=== PATIENT | male | born 1945 | race Caucasian/White ===

== ENCOUNTER 2016-03-15 10:20 | Inpatient (IN) | payer OTHER, MEDICARE ==
[~2016-03-15] VITALS: Ht 172.7 cm; Wt 113.4 kg
[~2016-03-15 10:20] MED LIST: ALBUTEROL0.09 MG/A1 INH; ALBUTEROL2.5 MG/3 M INH/SOL; ALDACTONE25 MG PO; ALLOPURINOL300 M1 PO; AUGMENTIN 875875 MG PO; AVELOX400 MG PO; AZITHROMYCIN250 MG PO; CYMBALTA60 M1 PO; ENBREL50 MG/1 ML SC; ENBREL50 MG/ML PO; ENBREL50 MG/ML SC; ENDOCET 325 MG-1 TAB PO; FLOMAX0.4 M1 PO; FLUTICASON0.05 MG/Ac NASB; FOLIC ACID1 M1 PO; FUROSEMIDE40 M1 PO; LANTUS SOL100 UNIT/1 SC; LOPRESSOR50 M1 PO; LOVASTATIN40 M1 PO; METFORMIN HCL500 MG PO; METHOTREXA50 MG/2 ML PO; METHOTREXATE2.5 M2 PO; METHYLPREDNISONE4 MG PO; MIRALAX17 GM PO; MUCINEX ER600 MG PO; Mucinex PO; OMEPRAZOLE20 M2 PO; PREDNICOT10 MG PO; PREDNISONE 20MG20 MG PO; PREDNISONE10 MG PO; SPIRIVA 18 MCG18 MCG INH; SYMBICORT 16010.2 GM INH; Senokot S PO
[2016-03-15] MEDS ORDERED: OXYCODONE-ACET1 EAC1 PO (10:31)
[2016-03-15] MEDS ORDERED: ALENDRONATE SOD70 M2 PO (10:32)
[2016-03-15] MEDS ORDERED: CALTRATE 600 +1 EACH PO (10:33)
[2016-03-15] MEDS ORDERED: CYANOCOBAL1000 MCG/2 IM (10:34)
[2016-03-15 10:58] LABS: ABSOLUTE BASOPHIL COUNT 0 /CUMM (0.0-0.2); ABSOLUTE EOSINOPHIL COUNT 0.2 /CUMM (0.0-0.7); ABSOLUTE GRANULOCYTE CT 10.2 /CUMM (1.4-6.5); ABSOLUTE LYMPH COUNT 1.3 /CUMM (1.2-3.4); BASOPHIL % 0.3 % (0.0-2.0); EOSINOPHIL % 1.3 % (0-5); GRANULOCYTE % 80.1 % (42.2-75.2); HEMATOCRIT 41.7 % (42-52); MEAN CORPUSCULAR HGB 31.6 PG (27.0-31.0); MEAN CORPUSCULAR HGB CONC 33.3 G/DL (33.0-37.0); MEAN PLATELET VOLUME 7.8 FL (7.4-10.4); PLATELET COUNT 139 /CUMM (130-400); RBC DISTRIBUTION WIDTH 15.9 % (11.5-14.5); WHITE BLOOD CELL COUNT 12.7 /CUMM (4.8-10.8)
--- NOTE | 2016-03-15 11:10 | ED DYSPNEA/ASTHMA COMPLAINT ---
History of Present Illness General Chief Complaint: Dyspnea (COPD, CHF, Other) Stated Complaint: BIBA SOB Source: patient, old records, EMS Exam Limitations: no limitations Allergies Coded Allergies: NO KNOWN ALLERGIES (03/15/16) Reconcile Medications Albuterol Sulfate 3 ML NEB 3 ML INH 5XDAILY COPD (Reported) Alendronate Sodium 70 MG TABLET 1 TAB PO QW BONE (Reported) in the morning, at least 30 minutes before the first food, beverage, or medication of the day Allopurinol 300 MG TAB 300 MG PO DAILY GOUT (Reported) Budesonide/Formoterol Fumara (Symbicort 160-4.5 Mcg Inhaler) 160 MCG/4.5 MCG PUF 2 PUFF INH BID PRN COPD (Reported) Calcium Carbonate/Vitamin D3 (Caltrate 600 + D Tablet) 600 MG-800 TABLET 1 TAB PO DAILY SUPPLEMENT (Reported) Cyanocobalamin (Vitamin B-12) (Cyanocobalamin Injection) 1,000 MCG/ML VIAL 1 ML IM Q30D SUPPLEMENT (Reported) DULOXETINE HCL (Cymbalta) 60 MG CAPSULE.DR 60 MG PO QAM MENTAL HEALTH ( Reported) Etanercept (Enbrel) 50 MG/ML TAPAN 50 MG SC QSUN ARTHRITIS (Reported) Fluticasone Propionate 0.05 MG/Actuation SPR 2 SPRAY NASB DAILY CONGESTION ( Reported) Folic Acid 1 MG TABLET 1 TAB PO BID SUPPLEMENT (Reported) Furosemide 40 MG TABLET 40 MG PO QAM HEART HEALTH (Reported) Guaifenesin (Mucinex) [address] 1 TAB PO BID PRN MUCUS (Reported) Insulin-Lantus (Lantus Insulin) 100 UNIT/ML VIAL 60 UNITS SC NIGHTLY DIABETES (Reported) Lovastatin 40 MG TABLET 40 MG PO QPM CHOLESTEROL (Reported) Methotrexate 2.5 MG TABLET 5 TAB PO QW ARTHRITIS (Reported) Metoprolol Tartrate 50 MG TAB 1 TAB PO BID HEART (Reported) Omeprazole 20 MG CAPSULE.DR 1 CAP PO BID GI (Reported) Oxycodone HCl/Acetaminophen (Oxycodone-Acetaminophen 10-325) 10 MG-325 MG TABLET 1 TAB PO 4XDP PRN PAIN (Reported) Spironolactone 25 MG TABLET 25 MG PO DAILY DIURETIC (Reported) Tamsulosin Hydrochloride (Flomax) 0.4 MG CAP.ER.24H 0.4 MG PO QPM PROSTATE ( Reported) Tiotropium [place] (Spiriva) 18 MCG CAP.W.DEV 1 CAP INH DAILY COPD EXACERBATION Triage Note: PT BIBA FROM HOME FOR HYPOXIA. PT SEEN BY HIS VISITING NURSE WHO NOTICED HE WAS HAVING INCREASED SOB. PT SUPPOSED TO BE ON 3L NC OXYGEN AND CPAP, BUT IS NON-COMPLIANT. UPON EMS ARRIVAL, PT'S O2 SAT 84-89% RA. PT NOTED TO BE SLIGHTLY CONFUSED UPON EMS ARRIVAL, BUT BECAME MORE ALERT AND ORIENTED X 4 AFTER OXYGEN AND UPON ARRIVAL TO HOSPITAL. PT'S O2 SAT WNL ON 3L. PURSED LIP BREATHING NOTED, HX OF CHF, COPD, EMPHYSEMA PT DENIES CHEST PAIN. Triage Nurses Notes Reviewed? yes HPI: 70-year-old male, smoker, history of COPD, CHF, insulin-dependent diabetes, who is O2 dependent however does not use is required oxygen or CPAP presents via ambulance with feeling short of breath for the past one week. It is worse today. He was noted to have a fever today on evaluation here. Using DuoNeb inhaler with mild relief daily. He denies chest pain, any known fever, no increased cough, no leg swelling, no sick contacts. No nausea no vomiting. Symptoms are moderate. He was restarted on Enbrel yesterday, he had to stop the Advil last year because of pneumonia. (DOT PRITCHARD,MIR) Vital Signs & Intake/Output Vital Signs & Intake/Output Vital Signs Date Time Temp Pulse Resp B/P Pulse O2 O2 Flow FiO2 Ox Delivery Rate 03/15 1729 Nasal 3.0L Cannula 03/15 1629 98.5 91 20 110/60 90 Nasal Cannula 03/15 1618 Nasal 3.0L Cannula 03/15 1600 Nasal 3.0L Cannula 03/15 1421 99.4 88 18 109/67 99 03/15 1316 100.6 03/15 1316 110 118/68 03/15 1251 100.6 110 20 118/68 98 Nasal 2.0L Cannula 03/15 1225 94 Nasal 3.0L Cannula 03/15 1040 94 Nasal 3.0L Cannula 03/15 1035 100.8 109 20 136/76 94 Nasal 3.0L Cannula Past History Travel History [place]ed [place] past 21 day No Medical History Any Pertinent Medical History? 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 Refer elsewhere in this and other documents for additional details. According to the patient's report he was asymptomatic and functionally unrestricted by his back prior to this injury. He did have functional limitation and restriction because of his other medical conditions. Refer to other inpatient and outpatient medical records for details regarding pre-injury functional status and deficits. History of MRSA: No History of VRE: No History of CDIFF: No Surgical History Surgical History: non-contributory, No prior surgery in the lumbar region See Admission History & Physical Examination Report for detailed Hx. Psychosocial History Who do you live with Spouse Services at Home Oxygen (4 litres) What is your primary language Lithuanian Tobacco Use: Current Daily Use Daily Tobacco Use Amount/Type: => 5 Cigarettes daily ETOH Use: occasional use Illicit Drug Use: denies illicit drug use Family History Family History, If Any: MOTHER FHx: cancer Hx Contributory? No (MIR ZARATE) Review of Systems Review of Systems Constitutional: Reports: see HPI. EENTM: Reports: no symptoms. Respiratory: Reports: see HPI. Cardiovascular: Reports: see HPI. GI: Reports: no symptoms. Genitourinary: Reports: no symptoms. Musculoskeletal: Reports: no symptoms. Skin: Reports: no symptoms. Neurological/Psychological: Reports: no symptoms. Hematologic/Endocrine: Reports: no symptoms. Immunologic/Allergic: Reports: no symptoms. All Other Systems: Reviewed and Negative (MIR ZARATE) Physical Exam Physical Exam General Appearance: well developed/nourished Respiratory: DIMINISHED BREATH SOUNDS BILATERALLY, CRACKLES NOTED BILATERAL BASES Comments: Well-developed well-nourished, mild increased respiratory rate and effort . HEENT: Atraumatic, extraocular motion intact Neck: Supple, no lymphadenopathy, no JVD Back: Nontender Heart: Tachycardic, regular rhythm Abdomen: Obese, nontender Extremities: Trace bilateral lower extremity edema, full range of motion Neuro: Alert and oriented x3 Psych: Mood affect normal, normal memory normal judgment. Skin: Warm and dry, no rash on exposed skin Core Measures ACS in differential dx? Yes Severe Sepsis Present: No Septic Shock Present: No (MIR ZARATE) Progress Differential Diagnosis: asthma, AMI, altitude sickness, bronchitis, costochondritis, CHF, COPD, musculoskeletal pain, pericarditis, pulmonary embolism, pneumonia, pneumothorax, rib fracture, unstable angina Diagnostic Imaging: Viewed by Me: Radiology Read. Discussed w/RAD: Radiology Read. CXR Impression: PATIENT: JANETTE PAEZ PRESENT AGE: 70 PATIENT ACCOUNT NO: [id number] : 43 LOCATION: [facility] ORDERING PHYSICIAN: MIR PRITCHARD SERVICE DATE: 03/15/16 EXAM TYPE: RAD - XRY-PORTABLE CHEST XRAY EXAMINATION: XR PORTABLE CHEST CLINICAL INFORMATION: Evaluate for pneumonia. Shortness of breath. Fever. COMPARISON: Chest radiograph dated 2015. TECHNIQUE: Portable AP view of the chest was obtained. FINDINGS: There is stable, mild cardiomegaly. There is uncoiling and calcification of the aorta. There is no definite consolidation within the right lung. There is no right pleural effusion or right pneumothorax. There is no definite consolidation within the left lung. There is no pneumothorax or pleural effusion on the left. There are degenerative changes of the spine. IMPRESSION: No definite pneumonia, pneumothorax or pleural effusion. Calcification and uncoiling of the aorta. DICTATED BY: DILMA OTTO MD DATE/TIME DICTATED:03/15/161115 CONSULTING HR PROFESSIONAL:FINA Initial ED EKG: NSR, SINUS TACHYCARDIA 170 INTERMITTENT RIGHT BUNDLE BRANCH BLOCK NO SIGNIFICANT CHANGE FROM PREVIOUS ekg Rhythm Strip: sinus tachycardia (MIR ZARATE) Plan of Care: Orders Procedure Date/time Status CBC WITHOUT DIFFERENTIAL 03/16 06 Active BASIC ELECTROLYTES PLUS BUN&CR 03/16 06 Active Consistent Carbohydrate 3 03/15 D Active RT: Evaluation 03/15 1654 Active Vital Signs 03/15 1618 Active Teach/Educate 03/15 1618 Active Nutritional Intake, Monitor 03/15 1618 Active Isolation 03/15 1618 Active Intake & Output 03/15 1618 Active Patient Care Conference 03/15 1618 Active Activity/Ambulation 03/15 1618 Active RAPID VIRAL INFLUENZA A 03/15 1344 Complete LACTIC ACID 03/15 1342 Complete Admit to inpatient 03/15 1331 Active TRC EVALUATION (GEN) 03/15 1256 Complete OXYGEN SETUP (GEN) 03/15 1256 Complete Pathway - chart 03/15 1256 Active House Staff 03/15 1256 Active Patient Data 03/15 1256 Active CULTURE,URINE 03/15 1256 Active STREP PNEUMO URINARY ANTIGEN 03/15 1256 Active LEGIONELLA URINARY ANTIGEN 03/15 1256 Active LOWER RESPIRATORY CULTURE 03/15 1256 Active URINALYSIS 03/15 1256 Active Code Status 03/15 1256 Active Patient Data 03/15 1219 Active URINALYSIS 03/15 1212 Active BLOOD CULTURE 03/15 1042 Active TROPONIN LEVEL 03/15 1042 Complete MAGNESIUM 03/15 1042 Complete LACTIC ACID 03/15 1042 Complete COMPREHENSIVE METABOLIC PANEL 03/15 1042 Complete CBC WITHOUT DIFFERENTIAL 03/15 1042 Complete B-TYPE NATRIURETIC PEP (BNP) 03/15 1042 Complete EKG 03/15 1021 Active THERAPIST ORDERS 03/15 UNK Complete CONTIN. POSITIVE AIRWAY PRESS 03/15 UNK Complete VTE Mechanical Prophylaxis 03/15 UNK Active Vital Signs 03/15 UNK Active Intake & Output 03/15 UNK Active FingerStick- Glucose 03/15 UNK Active Current Medications Sig/Lakisha Start time Last Medication Dose Stop Time Status Admin Allopurinol 300 MG DAILY 03/16 1000 AC (Zyloprim) Azithromycin 500 MG DAILY 03/16 1000 AC (Zithromax) Sodium Chloride 250 ML (Normal Saline 0.9%) Ceftriaxone Sodium 1,000 MG DAILY 03/16 1000 AC (Rocephin) Duloxetine HCl 60 MG DAILY 03/16 1000 AC (Cymbalta) Furosemide 40 MG QAM 03/16 1000 AC (Lasix) Spironolactone 25 MG DAILY 03/16 1000 AC (Aldactone) Tiotropium [place] 1 PUF DAILY 03/16 1000 AC (Spiriva) Folic Acid 1 MG DAILY 03/15 2200 AC (Folic Acid) Insulin Detemir 60 UNITS AT BEDTIME 03/15 2200 AC (Levemir) Methylprednisolone 40 MG Q8 03/15 2200 AC (Solumedrol) Metoprolol Tartrate 50 MG BID 03/15 2200 AC (Lopressor) Omeprazole 20 MG BID 03/15 2200 AC (Prilosec) Tamsulosin HCl 0.4 MG QPM 03/15 2200 AC (Flomax) Albuterol Sulfate 3 ML EVERY 4 HRS/AWAKE 03/15 2000 AC (Proventil) Atorvastatin Calcium 10 MG 1700 03/15 1700 AC (Lipitor) Acetaminophen 650 MG Q6P PRN 03/15 1300 AC (Tylenol) Budesonide/ 2 PUF BID PRN 03/15 1300 AC Formoterol Fumarate (Symbicort) Ibuprofen 600 MG Q6P PRN 03/15 1300 AC (Motrin) Sodium Chloride 1,000 ML ONCE ONE 03/15 1300 AC (Normal Saline 0.9%) 03/15 1939 Azithromycin 500 MG ONCE ONE 03/15 1145 CAN (Zithromax) 03/15 1244 Dextrose/Water 250 ML (D5W) Laboratory Tests 03/15/161709: Urine Color Pending, Urine Clarity Pending, Urine pH Pending, Ur Specific [place] Pending, Urine Protein Pending, Urine Ketones Pending, Urine Nitrite Pending, Urine Bilirubin Pending, Urine Urobilinogen Pending, Ur Leukocyte Esterase Pending, Ur Microscopic Pending, Urine Hemoglobin Pending, Urine Glucose Pending 03/15/16 1342: Lactic Acid 1.8 03/15/16 1049: Anion Gap 8, Estimated GFR > 60, BUN/Creatinine Ratio 16.7, Glucose 222 H, Lactic Acid 2.3 H, Calcium 9.5, Magnesium 1.9, Total Bilirubin 0.8, AST 13 L, ALT 24, Alkaline Phosphatase 85, Troponin I < 0.01, Hyn-F-Fvfkcailaug Pept 443 H, Total Protein 7.1, Albumin 3.9, Globulin 3.2, Albumin/Globulin Ratio 1.2, CBC w Diff NO MAN DIFF REQ, RBC 4.40 L, MCV 95.0 H, MCH 31.6 H, RDW 15.9 H, MPV 7.8, Gran % 80.1 H, Lymphocytes % 10.4 L, Monocytes % 7.9, Eosinophils % 1.3, Basophils % 0.3, Absolute Granulocytes 10.2 H, Absolute Lymphocytes 1.3, Absolute Monocytes 1.0 H, Absolute Eosinophils 0.2, Absolute Basophils 0, PUBS MCHC 33.3 Microbiology 03/15 1709 URINE ROUT: Legionella Antigen - RECD 03/15 1709 URINE ROUT: Streptococcus pneumoniae Antigen (M - RECD 02/02 1710 URINE ROUT: Urine Culture - RECD 03/15 1256 LOWER RESP: Respiratory Culture - ORD 03/15 1256 LOWER RESP: Gram Stain - ORD 03/15 1130 BLOOD: Blood Culture - RECD 03/15 1049 BLOOD: Blood Culture - RECD Departure Departure Disposition: STILL A PATIENT Condition: Stable Clinical Impression Primary Impression: Pneumonia Qualifiers: Pneumonia type: due to unspecified organism Laterality: unspecified laterality Lung location: lower lobe of lung Qualified Code: J18.1 - Lobar pneumonia, unspecified organism Referrals: CONNER RODRIGUEZ MD (PCP/Family) Departure Forms: Customer Survey General Discharge Information Admission Note Spoke With: STEVE JORDAN M.D Documentation of Exam: Documentation of any treatments & extenuating circumstances including Concerns Regarding Discharge (functional status, medication knowledge or non-compliance, living conditions, etc.) that warrant an admission rather than observation: Patient with a complex medical history diabetes COPD smoker, CHF here with shortness of breath and fever, elevated white blood cell count elevated lactic acid, requires respiratory treatments, IV antibiotics for suspected pneumonia. He is an unsafe discharge home as nebulizer treatments at home have not been helping him. (MIR ZARATE) PA/DIRECTOR INFORMATION Co-Sign Statement Statement: ED Attending supervision documentation- [X] I saw and evaluated the patient. I have also reviewed all the pertinent lab results and diagnostic results. I agree with the findings and the plan of care as documented in the PA's/DIRECTOR INFORMATION's documentation. [] I have reviewed the ED Record and agree with the PA's/DIRECTOR INFORMATION's documentation. [] Additions or exceptions (if any) to the PAs/DIRECTOR INFORMATION's note and plan are summarized below: [] (LAUREN TINEO,IOANA Aranda) Critical Care Note Critical Care Note Critical Care Time: 30-74 min (MIR ZARATE)
--- NOTE | 2016-03-15 11:23 | RADIOLOGY REPORT ---
EXAMINATION: XR PORTABLE CHEST CLINICAL INFORMATION: Evaluate for pneumonia. Shortness of breath. Fever. COMPARISON: Chest radiograph dated 02/28/2015. TECHNIQUE: Portable AP view of the chest was obtained. FINDINGS: There is stable, mild cardiomegaly. There is uncoiling and calcification of the aorta. There is no definite consolidation within the right lung. There is no right pleural effusion or right pneumothorax. There is no definite consolidation within the left lung. There is no pneumothorax or pleural effusion on the left. There are degenerative changes of the spine. IMPRESSION: No definite pneumonia, pneumothorax or pleural effusion. Calcification and uncoiling of the aorta.
--- NOTE | 2016-03-15 12:39 | History & Physical ---
SONDRA TINEO,[place] 03/15/16 1239: General Information and HPI MD Statement: I have seen and personally examined JANETTE PAEZ and documented this H&P. The patient is a 70 year old M who presented with a patient stated chief complaint of [SOB]. Source of Information: patient, family, old records Exam Limitations: no limitations History of Present Illness: 68-year-old man with a past medical history significant for COPD, congestive heart failure, hypertension, hyperlipidemia, diabetes mellitus, 50+ pack year smoking history currently one pack per day smoker presents to the emergency room with a chief complaint of shortness of breath. Patient states that yesterday he felt an "attack" of his rheumatoid arthritis, he called his stabber who advised that he should take a shot on Enbrel. He woke up this morning feeling extremely short of breath/winded, accompanied with dry cough. His brought into the emergency room where he was found to be febrile. After getting a couple of breathing treatments states that her shortness of breath has been alleviated. He is supposed to use 3 L of oxygen via nasal cannula at all times however is noncompliant with this. At present he denies any chest pain, shortness of breath, nausea, vomiting, diarrhea, fevers, chills, recent illnesses or sick contacts. His only complaint at present is right wrist pain which he attributes to his rheumatoid arthritis. Allergies/Medications Allergies: Coded Allergies: NO KNOWN ALLERGIES (03/15/16) Home Med list Albuterol Sulfate 3 ML NEB 3 ML INH 5XDAILY COPD (Reported) Alendronate Sodium 70 MG TABLET 1 TAB PO QW BONE (Reported) in the morning, at least 30 minutes before the first food, beverage, or medication of the day Allopurinol 300 MG TAB 300 MG PO DAILY GOUT (Reported) Budesonide/Formoterol Fumara (Symbicort 160-4.5 Mcg Inhaler) 160 MCG/4.5 MCG PUF 2 PUFF INH BID PRN COPD (Reported) Calcium Carbonate/Vitamin D3 (Caltrate 600 + D Tablet) 600 MG-800 TABLET 1 TAB PO DAILY SUPPLEMENT (Reported) Cyanocobalamin (Vitamin B-12) (Cyanocobalamin Injection) 1,000 MCG/ML VIAL 1 ML IM Q30D SUPPLEMENT (Reported) DULOXETINE HCL (Cymbalta) 60 MG CAPSULE.DR 60 MG PO QAM MENTAL HEALTH ( Reported) Etanercept (Enbrel) 50 MG/ML TAPAN 50 MG SC QSUN ARTHRITIS (Reported) Fluticasone Propionate 0.05 MG/Actuation SPR 2 SPRAY NASB DAILY CONGESTION ( Reported) Folic Acid 1 MG TABLET 1 TAB PO BID SUPPLEMENT (Reported) Furosemide 40 MG TABLET 40 MG PO QAM HEART HEALTH (Reported) Guaifenesin (Mucinex) [address] 1 TAB PO BID PRN MUCUS (Reported) Insulin-Lantus (Lantus Insulin) 100 UNIT/ML VIAL 60 UNITS SC NIGHTLY DIABETES (Reported) Lovastatin 40 MG TABLET 40 MG PO QPM CHOLESTEROL (Reported) Methotrexate 2.5 MG TABLET 5 TAB PO QW ARTHRITIS (Reported) Metoprolol Tartrate 50 MG TAB 1 TAB PO BID HEART (Reported) Omeprazole 20 MG CAPSULE.DR 1 CAP PO BID GI (Reported) Oxycodone HCl/Acetaminophen (Oxycodone-Acetaminophen 10-325) 10 MG-325 MG TABLET 1 TAB PO 4XDP PRN PAIN (Reported) Spironolactone 25 MG TABLET 25 MG PO DAILY DIURETIC (Reported) Tamsulosin Hydrochloride (Flomax) 0.4 MG CAP.ER.24H 0.4 MG PO QPM PROSTATE ( Reported) Tiotropium [place] (Spiriva) 18 MCG CAP.W.DEV 1 CAP INH DAILY COPD EXACERBATION Past History Travel History Traveled to Court past 21 day No Medical History Neurological: NONE EENT: NONE Cardiovascular: CHF, hypertension Respiratory: COPD, obstructive sleep apnea, with ongoing tobacco use disorder Hepatic: NONE Renal: benign prost hyperplasia Musculoskeletal: rheumatoid arthritis Psychiatric: NONE Endocrine: INSULIN DEPENDENT DIABETIC TYPE II Blood Disorders: NONE 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 Refer elsewhere in this and other documents for additional details. According to the patient's report he was asymptomatic and functionally unrestricted by his back prior to this injury. He did have functional limitation and restriction because of his other medical conditions. Refer to other inpatient and outpatient medical records for details regarding pre-injury functional status and deficits. History of MRSA: No History of VRE: No History of CDIFF: No Surgical History Surgical History: non-contributory, No prior surgery in the lumbar region See Admission History & Physical Examination Report for detailed Hx. ECHO Results (as available) Date of last Echo 09/24/06 EF% 60 Past Family/Social History Family History Relations & Conditions if any MOTHER FHx: cancer Psychosocial History Services at Home: Oxygen (4 litres) Smoking Status: Current Everyday Smoker ETOH Use: occasional use Illicit Drug Use: denies illicit drug use Functional Ability Ambulation: independent, Ambulatory distance was limited by pulmonary condition and not by any spinal symptoms prior to this injury. Pre-injury functional ability is detailed in "Other Medical Hx" section. Review of Systems Review of Systems Constitutional: Reports: see HPI. Exam & Diagnostic Data Last 24 Hrs of Vital Signs/I&O Vital Signs Date Time Temp Pulse Resp B/P Pulse O2 O2 Flow FiO2 Ox Delivery Rate 03/15 1225 94 Nasal 3.0L Cannula 03/15 1040 94 Nasal 3.0L Cannula 03/15 1035 100.8 109 20 136/76 94 Nasal 3.0L Cannula Intake & Output 03/15 1600 03/15 0800 03/15 0000 Intake Total 0 Output Total Balance 0 Intake, Oral 0 Patient 250 lb Weight Physical Exam General Appearance Alert, Oriented X3, Cooperative, No Acute Distress Skin No Rashes, No Breakdown HEENT Atraumatic, PERRLA, EOMI, dry mucous membranes Cardiovascular Regular Rate, Normal S1, Normal S2 Lungs b/l wheezing and ronchii Abdomen Normal Bowel Sounds, Soft, No Tenderness Neurological Normal Speech, Strength at 5/5 X4 Ext, Normal Tone, Sensation Intact, Cranial Nerves 3-12 NL Extremities Right wrist is tender to touch Last 24 Hrs of Labs/Kiel: Laboratory Tests 03/15/16 1049: Anion Gap 8, Estimated GFR > 60, BUN/Creatinine Ratio 16.7, Glucose 222 H, Lactic Acid 2.3 H, Calcium 9.5, Magnesium 1.9, Total Bilirubin 0.8, AST 13 L, ALT 24, Alkaline Phosphatase 85, Troponin I < 0.01, [id number] Pept 443 H, Total Protein 7.1, Albumin 3.9, Globulin 3.2, Albumin/Globulin Ratio 1.2, CBC w Diff NO MAN DIFF REQ, RBC 4.40 L, MCV 95.0 H, MCH 31.6 H, RDW 15.9 H, MPV 7.8, Gran % 80.1 H, Lymphocytes % 10.4 L, Monocytes % 7.9, Eosinophils % 1.3, Basophils % 0.3, Absolute Granulocytes 10.2 H, Absolute Lymphocytes 1.3, Absolute Monocytes 1.0 H, Absolute Eosinophils 0.2, Absolute Basophils 0, PUBS MCHC 33.3 Microbiology 03/15 1130 BLOOD: Blood Culture - RECD 03/15 1049 BLOOD: Blood Culture - RECD Diagnostic Data EKG Results Rate 107, FL 192, QRS 138, QTC 475 Sinus tachycardia, right bundle branch block CXR Results IMPRESSION: No definite pneumonia, pneumothorax or pleural effusion. Calcification and uncoiling of the aorta. Assessment/Plan Assessment: In summary this is a 70-year-old man who presented to the emergency room with acute shortness of breath, he has long-standing COPD and is noncompliant with his supplemental oxygen use and continues to smoke 1 pack of cigarettes a day for greater than 50 years. His shortness of breath and wheezing on lung exam is most likely consistent with a COPD exacerbation, it should be noted that he recently did use Enbrel (yesterday). His chest x-ray is negative for pneumonia however he is febrile. Assessment- 1. Acute on chronic hypoxic respiratory failure secondary to severe; leukocytosis of 12,700 with a left shift 2. Possible pneumonia versus bronchitis 3. Rheumatoid arthritis, current flare 4. Hypertension 5. Hyperlipidemia 6. Insulin-dependent diabetes mellitus 7. GERD 8. Depression 9. Chronic diastolic CHF Plan- Admit to general med Vitals per protocol Panculture Flu swab Urinalysis and culture IV Solu-Medrol 40 every 8 IV ceftriaxone and azithromycin TRC evaluation and nebs Hold methotrexate and Enbrel Accu-Cheks, diabetic diet, insulin sliding scale Continue his GI, beta ron, statin DVT prophylaxis with subcutaneous heparin Diabetic diet Full code As Ranked By This Provider Problem List: 1. History of chronic carbon dioxide retention 2. COPD with acute exacerbation 3. Hyperglycemia 4. Leukocytosis 5. Hyperlipidemia 6. Hypertension 7. Rheumatoid arthritis Core Measures/Miscellaneous Acute Coronary Syndrome ACS Diagnosis: No Cerebrovascular Accident CVA/TIA Diagnosis: No Congestive Heart Failure CHF Diagnosis: No Venous Thromboembolism VTE Risk Factors: Age > 40, Smoking VTE Prophylaxis Ordered Inpt: Pharm- Heparin No Mech VTE prophylaxis d/t: No contraindications No VTE Pharm Prophylaxis d/t: No contraindications VTE Diagnosis: No VTE Type: NONE VTE Confirmed by (Test): NONE Severe Sepsis Severe Sepsis Present: No Septic Shock Septic Shock Present: No Miscellaneous Documentation Attending Case Discussed With: Dr. Garcia Primary Care Physician: CONNER RODRIGUEZ MD A Patient sees these Specialists Dr. Rene Headley (Rheum) Level of Patient Care: General Medicine Resident Review Statement Resident Statement: examined this patient, discussed with dental intern AUDI GARCIA MD 03/15/16 1441: Attending MD Review Statement Attending Statement Attending MD Statement: examined this patient, discuss w/resident/PA/CREDIT RISK MODELER, agreed w/resident/PA/CREDIT RISK MODELER, reviewed EMR data (avail) Attending Assessment/Plan: 70M PMH HTN, HLD, rheumatoid arthritis, COPD, BOB admitted for shortness of breath, hypoxia, and wheezing on exam. Day prior to admission patient felt an RA flare coming on with right wrist pain, called his stabber, and took a shot of Enbrel (which he takes very infrequently). Today he developed the respiratory symptoms. No sick contacts. Afebrile, stable vitals. Patient felt better after nebulizer treatments and oxygen. CXR negative. Rhonchi in bilateral lungs as well as diffuse wheezing. Plan - Admit to general medicine - Ceftriaxone and Azithromycin - Sputum and blood cultures - Continue home medications - Solumedrol 40mg q8h - TRC/nebulizer treatments - Will contact patient's stabber - DVT PPx
--- NOTE | 2016-03-15 14:45 | Admission Certification ---
Admission Certification Certification Statement - As attending physician, I certify that at the time of - admission, based on clinical presentation, severity of - symptoms, need for further diagnostic testing and - therapeutic interventions, and risk of adverse outcomes - without in-hospital treatment, in my clinical assessment, - this patient requires an acute hospital stay for a minimum - of two nights or longer. I have also considered psychsocial - factors such as support system, advanced age, financial - issues, cognitive issues, and failed out-patient treatments, - past re-admission history, safety of patient, and lack of - compliance as applicable. Specific rationale supporting this admission is: Shortness of breath and hypoxia following RA flare with history of COPD and BOB
--- NOTE | 2016-03-15 14:51 | Cons- Pulmonary ---
General Information and HPI Consulting Request Date of Consult: 03/15/16 Requested By: Dr. Khan Reason for Consult: fever, dyspnea in setting of RA, Enbrel and COPD/BOB Source of Information: patient Exam Limitations: no limitations History of Present Illness: 70 year old man with BOB on CPAP @9cmH20 uses sleep [place]. Sleep study April 2015. Study showed severe obstructive sleep apnea with loud snoring. The entire study was performed on supplemental oxygen 3.5 L/m. The AHI was 20.3 with low oxygen saturation to 93 on oxygen. The AHI supine was 28.1 and the AHI was controlled to 3.5 on 9 cm of water CPAP. He has a diagnosis of COPD on 3-3.5 L NC, BOB, lumbar fracture. For COPD on 3.5L oxygen. On Symbicort and Spiriva. On nebulized albuterol as needed. Some cough, white phlegm. Fevers, chills. Dyspnea is stable. Signficant worsening of RA and joint pains in his wrists primarily. Uses wheelchair due to pain in the back. Also Rheumatoid Arthritis , percocet and Methotrexate, Enbrel. Also a history of lung nodules in the past. No leg edema. Allergies/Medications Allergies: Coded Allergies: NO KNOWN ALLERGIES (03/15/16) Home Med List: Albuterol Sulfate 3 ML NEB 3 ML INH 5XDAILY COPD (Reported) Alendronate Sodium 70 MG TABLET 1 TAB PO QW BONE (Reported) in the morning, at least 30 minutes before the first food, beverage, or medication of the day Allopurinol 300 MG TAB 300 MG PO DAILY GOUT (Reported) Budesonide/Formoterol Fumara (Symbicort 160-4.5 Mcg Inhaler) 160 MCG/4.5 MCG PUF 2 PUFF INH BID PRN COPD (Reported) Calcium Carbonate/Vitamin D3 (Caltrate 600 + D Tablet) 600 MG-800 TABLET 1 TAB PO DAILY SUPPLEMENT (Reported) Cyanocobalamin (Vitamin B-12) (Cyanocobalamin Injection) 1,000 MCG/ML VIAL 1 ML IM Q30D SUPPLEMENT (Reported) DULOXETINE HCL (Cymbalta) 60 MG CAPSULE. 60 MG PO QAM MENTAL HEALTH ( Reported) Etanercept (Enbrel) 50 MG/ML TAPAN 50 MG SC QSUN ARTHRITIS (Reported) Fluticasone Propionate 0.05 MG/Actuation SPR 2 SPRAY NASB DAILY CONGESTION ( Reported) Folic Acid 1 MG TABLET 1 TAB PO BID SUPPLEMENT (Reported) Furosemide 40 MG TABLET 40 MG PO QAM HEART HEALTH (Reported) Guaifenesin (Mucinex) [address] 1 TAB PO BID PRN MUCUS (Reported) Insulin-Lantus (Lantus Insulin) 100 UNIT/ML VIAL 60 UNITS SC NIGHTLY DIABETES (Reported) Lovastatin 40 MG TABLET 40 MG PO QPM CHOLESTEROL (Reported) Methotrexate 2.5 MG TABLET 5 TAB PO QW ARTHRITIS (Reported) Metoprolol Tartrate 50 MG TAB 1 TAB PO BID HEART (Reported) Omeprazole 20 MG CAPSULE.DR 1 CAP PO BID GI (Reported) Oxycodone HCl/Acetaminophen (Oxycodone-Acetaminophen 10-325) 10 MG-325 MG TABLET 1 TAB PO 4XDP PRN PAIN (Reported) Spironolactone 25 MG TABLET 25 MG PO DAILY DIURETIC (Reported) Tamsulosin Hydrochloride (Flomax) 0.4 MG CAP.ER.24H 0.4 MG PO QPM PROSTATE ( Reported) Tiotropium [place] (Spiriva) 18 MCG CAP.W.DEV 1 CAP INH DAILY COPD EXACERBATION Current Medications: Current Medications Sig/Lakisha Start time Last Medication Dose Route Stop Time Status Admin Acetaminophen 650 MG Q6P PRN 03/15 1300 AC PO Acetaminophen 0 .STK-MED ONE 03/15 1251 DC PO Acetaminophen 650 MG ONCE ONE 03/15 1215 DC 03/15 PO 03/15 1216 1316 Albuterol Sulfate 3 ML ONCE ONE 03/15 1145 DC 03/15 INH 03/15 1146 1200 Allopurinol 300 MG DAILY 03/16 1000 AC PO Atorvastatin Calcium 10 MG 1700 03/15 1700 AC PO Azithromycin 500 MG DAILY 03/16 1000 AC Sodium Chloride 250 ML IV Azithromycin 500 MG ONCE ONE 03/15 1230 DC 03/15 Sodium Chloride 250 ML IV 03/15 1329 1316 Azithromycin 500 MG ONCE ONE 03/15 1145 CAN Dextrose/Water 250 ML IV 03/15 1244 Budesonide/ 2 PUF BID PRN 03/15 1300 AC Formoterol Fumarate INH Ceftriaxone Sodium 1,000 MG DAILY 03/16 1000 AC IV Ceftriaxone Sodium 0 .STK-MED ONE 03/15 1209 DC .ROUTE Ceftriaxone Sodium 1,000 MG ONCE ONE 03/15 1145 DC 03/15 IV 03/15 1146 1227 Duloxetine HCl 60 MG DAILY 03/16 1000 AC PO Folic Acid 1 MG DAILY 03/15 2200 AC PO Furosemide 40 MG QAM 03/16 1000 AC PO Furosemide 0 .STK-MED ONE 03/15 1252 DC PO Furosemide 40 MG ONE ONE 03/15 1215 DC 03/15 PO 03/15 1216 1316 Heparin Sodium 5,000 UNIT Q8 03/15 1400 AC 03/15 (Porcine) SC 1316 Heparin Sodium 0 .STK-MED ONE 03/15 1303 DC (Porcine) .ROUTE Ibuprofen 600 MG Q6P PRN 03/15 1300 AC PO Insulin Detemir 60 UNITS AT BEDTIME 03/15 2200 AC SC Ipratropium [place] 2.5 ML ONCE ONE 03/15 1145 DC 03/15 INH 03/15 1146 1200 Methylprednisolone 40 MG Q8 03/15 2200 AC IV Methylprednisolone 0 .STK-MED ONE 03/15 1208 DC .ROUTE Methylprednisolone 125 MG ONCE ONE 03/15 1145 DC 03/15 IV 03/15 1146 1227 Metoprolol Tartrate 50 MG BID 03/15 2200 AC PO Metoprolol Tartrate 0 .STK-MED ONE 03/15 1251 DC PO Metoprolol Tartrate 50 MG ONCE ONE 03/15 1215 DC 03/15 PO 03/15 1216 1316 Morphine Sulfate 0 .STK-MED ONE 03/15 1253 DC .ROUTE Nicotine 0 .STK-MED ONE 03/15 1303 DC TOP Nicotine 21 MG DAILY 03/15 1254 AC 03/15 TOP 1316 Omeprazole 20 MG BID 03/15 2200 AC PO Omeprazole 0 .STK-MED ONE 03/15 1252 DC PO Omeprazole 20 MG ONCE ONE 03/15 1215 DC 03/15 PO 03/15 1216 1316 Oxycodone HCl 0 .STK-MED ONE 03/15 1302 DC PO Oxycodone HCl 10 MG ONCE ONE 03/15 1300 DC 03/15 PO 03/15 1301 1316 Sodium Chloride 1,000 ML ONCE ONE 03/15 1300 AC IV 03/15 1939 Sodium Chloride 1,000 ML BOLUS ONE 03/15 1215 DC 03/15 IV 03/15 1314 1316 Spironolactone 25 MG DAILY 03/16 1000 AC PO Spironolactone 25 MG ONCE ONE 03/15 1215 DC 03/15 PO 03/15 1216 1316 Tamsulosin HCl 0.4 MG QPM 03/15 2200 AC PO Tiotropium [place] 1 PUF DAILY 03/16 1000 AC INH Review of Systems Comments 18 point Review of Systems performed. Positive and negative pertinent findings are deliniated in the HPI. Otherwise the ROS is negative. 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 Refer elsewhere in this and other documents for additional details. According to the patient's report he was asymptomatic and functionally unrestricted by his back prior to this injury. He did have functional limitation and restriction because of his other medical conditions. Refer to other inpatient and outpatient medical records for details regarding pre-injury functional status and deficits. Surgical History Surgical History: non-contributory, No prior surgery in the lumbar region See Admission History & Physical Examination Report for detailed Hx. Family History Relations & Conditions If Any: MOTHER FHx: cancer Psychosocial History Services at Home: Oxygen (4 litres) Smoking Status: Current Everyday Smoker ETOH Use: occasional use Illicit Drug Use: denies illicit drug use Functional Ability Ambulation: independent, Ambulatory distance was limited by pulmonary condition and not by any spinal symptoms prior to this injury. Pre-injury functional ability is detailed in "Other Medical Hx" section. ECHO Results (as available) Date of last Echo 09/24/06 EF% 60 Exam & Diagnostic Data Last 24 Hrs of Vital Signs/I&O Vital Signs Date Time Temp Pulse Resp B/P Pulse O2 O2 Flow FiO2 Ox Delivery Rate 03/15 1421 99.4 88 18 109/67 99 03/15 1316 100.6 03/15 1316 110 118/68 03/15 1251 100.6 110 20 118/68 98 Nasal 2.0L Cannula 03/15 1225 94 Nasal 3.0L Cannula 03/15 1040 94 Nasal 3.0L Cannula 03/15 1035 100.8 109 20 136/76 94 Nasal 3.0L Cannula Intake & Output 03/15 1600 03/15 0800 03/15 0000 Intake Total 0 Output Total Balance 0 Intake, Oral 0 Patient 250 lb Weight Physical Exam Other Physical Findings: General - Alert, awake and oriented HEENT - normocephalic, atraumatic Cardiovascular - S1, S2 Lungs - decreased breath sounds; prolonged end expiratory phase. Abdomen - soft, bowel sounds positive, no tenderness Extremities - without edema or cyanosis joint pains and decreased range of motion, primarily right wrist, some redness Last 48 Hrs of Labs/[place]iel: Laboratory Tests 03/15/16 1342: Lactic Acid 1.8 03/15/16 1049: Anion Gap 8, Estimated GFR > 60, BUN/Creatinine Ratio 16.7, Glucose 222 H, Lactic Acid 2.3 H, Calcium 9.5, Magnesium 1.9, Total Bilirubin 0.8, AST 13 L, ALT 24, Alkaline Phosphatase 85, Troponin I < 0.01, [id number] Pept 443 H, Total Protein 7.1, Albumin 3.9, Globulin 3.2, Albumin/Globulin Ratio 1.2, CBC w Diff NO MAN DIFF REQ, RBC 4.40 L, MCV 95.0 H, MCH 31.6 H, RDW 15.9 H, MPV 7.8, Gran % 80.1 H, Lymphocytes % 10.4 L, Monocytes % 7.9, Eosinophils % 1.3, Basophils % 0.3, Absolute Granulocytes 10.2 H, Absolute Lymphocytes 1.3, Absolute Monocytes 1.0 H, Absolute Eosinophils 0.2, Absolute Basophils 0, PUBS MCHC 33.3 Assessment/Plan Impression/Plan: Impression 70 year old man -fever maybe secondary to an RA flare vs bronchitis, no obvious pna on cxr -COPD -BOB -lung nodules Plan -abx, kat cx, legionella/strep ag -steroids -alert Dr. Headley (truck driver helper) of pts admission and consider rheumatology input -TRC/Nebs -CPAP @9cm H20 nocturnally -cont symbicort/spiriva -April 2015 CAT scan shows interval resolution of a right lower lobe bronchopneumonia and multiple stable pulmonary nodules. There is a new 3 mm nodule in the left upper lobe and mild pulmonary emphysema. Largest nodule unchanged from 03/15/[address] chest ordered 05/2016 -DVT prophylaxis at all times Consult Acknowledgment - Thank you for your consult request.
[2016-03-15 16:29] VITALS: BP 110/60
[2016-03-15 22:35] VITALS: BP 120/60
--- NOTE | 2016-03-16 05:54 | PN- Housestaff ---
See Addendum Subjective Follow-up For: -copd exacerbation Subjective: He was comfortable this morning. Did not have any complaints. Vitals remained stable overnight. Currently on 3 L oxygen (which is his baseline). Remained afebrile. Was on CPAP overnight. Discussed with Dr. Blake (pigment furnace tender), about a possible discharge since the patient was stable. Advised us on contacting Dr. Headley/Andre Lin MD. Discussed with Dr. Headley about continuation of steroids-prednisone (short taper ). Also discussed the plan with the patient's over the phone. Review of Systems Constitutional: Reports: see HPI. Objective Last 24 Hrs of Vital Signs/I&O Vital Signs Date Time Temp Pulse Resp B/P Pulse O2 O2 Flow FiO2 Ox Delivery Rate 03/16 0540 96 CPAP 6.0L 03/16 0533 92 89 03/16 0530 91 84 03/16 0230 82 90 03/16 0000 Nasal 3.0L Cannula 03/15 2235 98.5 90 20 120/60 97 Nasal Cannula 03/15 2142 98 94 03/15 1729 Nasal 3.0L Cannula 03/15 1629 98.5 91 20 110/60 90 Nasal Cannula 03/15 1618 Nasal 3.0L Cannula 03/15 1600 Nasal 3.0L Cannula 03/15 1421 99.4 88 18 109/67 99 03/15 1316 100.6 03/15 1316 110 118/68 02 1251 100.6 110 20 118/68 98 Nasal 2.0L Cannula 03/15 1225 94 Nasal 3.0L Cannula 03/15 1040 94 Nasal 3.0L Cannula 03/15 1035 100.8 109 20 136/76 94 Nasal 3.0L Cannula Intake & Output 03/16 0800 03/16 0000 03/15 1600 Intake Total 1800 0 Output Total 750 Balance 1050 0 Intake, IV 1200 Intake, Oral 600 0 Output, Urine 750 Patient 250 lb 250 lb Weight Physical Exam General Appearance: No Acute Distress Other Physical Findings: General Exam: AAOx3, No acute distress, Skin: No rashes, no breakdown HEENT: PERRLA, EOMI Neck: Supple, No JVD No cervical lymphadenopathy CVS: Reg Rate, Normal S1,S2, No MGR Resp: Normal air entry, rhonchi-bilateral. Abdomen: Soft, No tenderness, Normal Bowel Sounds Neuro: Normal Speech, Strength 5/5 b/l x 4 extremities, Sensation intact, CN III -XII NL, Reflexes 2+ Extremities: No cyanosis, pedal edema Current Medications: Current Medications Sig/Lakisha Start time Last Medication Dose Route Stop Time Status Admin Acetaminophen 650 MG Q6P PRN 03/15 1300 AC PO Acetaminophen 0 .STK-MED ONE 03/15 1251 DC PO Acetaminophen 650 MG ONCE ONE 03/15 1215 DC 03/15 PO 03/15 1216 1316 Albuterol Sulfate 3 ML EVERY 4 HRS/AWAKE 03/15 2000 AC 03/15 INH 2045 Albuterol Sulfate 3 ML ONCE ONE 03/15 1145 DC 03/15 INH 03/15 1146 1200 Allopurinol 300 MG DAILY 03/16 1000 AC PO Atorvastatin Calcium 10 MG 1700 03/15 1700 AC 03/15 PO 205 Azithromycin 500 MG DAILY 03/16 1000 AC Sodium Chloride 250 ML IV Azithromycin 500 MG ONCE ONE 03/15 1230 DC 03/15 Sodium Chloride 250 ML IV 03/15 1329 1316 Azithromycin 500 MG ONCE ONE 03/15 1145 CAN Dextrose/Water 250 ML IV 03/15 1244 Budesonide/ 2 PUF BID PRN 03/15 1300 AC Formoterol Fumarate INH Ceftriaxone Sodium 1,000 MG DAILY 03/16 1000 AC IV Ceftriaxone Sodium 0 .STK-MED ONE 03/15 1209 DC .ROUTE Ceftriaxone Sodium 1,000 MG ONCE ONE 03/15 1145 DC 03/15 IV 03/15 1146 1227 Duloxetine HCl 60 MG DAILY 03/16 1000 AC PO Folic Acid 1 MG DAILY 03/15 2200 AC 03/15 PO 205 Furosemide 40 MG QAM 03/16 1000 AC PO Furosemide 0 .STK-MED ONE 03/15 1252 DC PO Furosemide 40 MG ONE ONE 03/15 1215 DC 03/15 PO 03/15 1216 1316 Heparin Sodium 5,000 UNIT Q8 03/15 1400 AC 03/16 (Porcine) SC 0519 Heparin Sodium 0 .STK-MED ONE 03/15 1303 DC (Porcine) .ROUTE Ibuprofen 600 MG Q6P PRN 03/15 1300 AC 03/15 PO 205 Insulin Aspart 0 TIDAC 03/15 2030 AC 03/15 SC 2054 Insulin Detemir 60 UNITS AT BEDTIME 03/15 2200 AC 02/02 SC 2055 Ipratropium [place] 2.5 ML ONCE ONE 03/15 1145 DC 03/15 INH 03/15 1146 1200 Methylprednisolone 40 MG Q8 03/15 2200 AC 03/16 IV 0517 Methylprednisolone 0 .STK-MED ONE 03/15 1208 DC .ROUTE Methylprednisolone 125 MG ONCE ONE 03/15 1145 DC 03/15 IV 03/15 1146 1227 Metoprolol Tartrate 50 MG BID 03/15 2200 AC 03/15 PO 205 Metoprolol Tartrate 0 .STK-MED ONE 03/15 1251 DC PO Metoprolol Tartrate 50 MG ONCE ONE 03/15 1215 DC 03/15 PO 03/15 1216 1316 Morphine Sulfate 0 .STK-MED ONE 03/15 1253 DC .ROUTE Nicotine 0 .STK-MED ONE 03/15 1303 DC TOP Nicotine 21 MG DAILY 03/15 1254 AC 03/15 TOP 1316 Omeprazole 20 MG BID 03/15 2200 AC 03/15 PO 205 Omeprazole 0 .STK-MED ONE 03/15 1252 DC PO Omeprazole 20 MG ONCE ONE 03/15 1215 DC 03/15 PO 03/15 1216 1316 Oxycodone HCl 0 .STK-MED ONE 03/15 1302 DC PO Oxycodone HCl 10 MG ONCE ONE 03/15 1300 DC 03/15 PO 03/15 1301 1316 Sodium Chloride 1,000 ML ONCE ONE 03/15 1300 DC 03/15 IV 03/15 1939 1812 Sodium Chloride 1,000 ML BOLUS ONE 03/15 1215 DC 03/15 IV 03/15 1314 1316 Spironolactone 25 MG DAILY 03/16 1000 AC PO Spironolactone 25 MG ONCE ONE 03/15 1215 DC 03/15 PO 03/15 1216 1316 Tamsulosin HCl 0.4 MG QPM 03/15 2200 AC 03/15 PO 2056 Tiotropium [place] 1 PUF DAILY 03/16 1000 AC INH Last 24 Hrs of Lab/[place]iel Results Last 24 Hrs of Labs/Mics: Laboratory Tests 03/15/16 1710: Urinalysis LIGHT H, Urine Color YEL, Urine Clarity CLEAR, Urine pH 7.0, Ur Specific [place] 1.015, Urine Protein TRACE H, Urine Ketones NEG, Urine Nitrite NEG, Urine Bilirubin NEG, Urine Urobilinogen 0.2, Ur Leukocyte Esterase NEG, Ur Microscopic SEDIMENT EXAMINED, Urine WBC RARE, Urine Hemoglobin NEG, Urine Glucose 250 H 03/15/16 1342: Lactic Acid 1.8 03/15/16 1212: Urine Color Cancelled, Urine Clarity Cancelled, Urine pH Cancelled, Ur Specific [place] Cancelled, Urine Protein Cancelled, Urine Ketones Cancelled, Urine Nitrite Cancelled, Urine Bilirubin Cancelled, Urine Urobilinogen Cancelled, Ur Leukocyte Esterase Cancelled, Ur Microscopic Cancelled, Urine Hemoglobin Cancelled, Urine Glucose Cancelled 03/15/16 1049: Anion Gap 8, Estimated GFR > 60, BUN/Creatinine Ratio 16.7, Glucose 222 H, Lactic Acid 2.3 H, Calcium 9.5, Magnesium 1.9, Total Bilirubin 0.8, AST 13 L, ALT 24, Alkaline Phosphatase 85, Troponin I < 0.01, Mwh-X-Rdvfpqebuxt Pept 443 H, Total Protein 7.1, Albumin 3.9, Globulin 3.2, Albumin/Globulin Ratio 1.2, CBC w Diff NO MAN DIFF REQ, RBC 4.40 L, MCV 95.0 H, MCH 31.6 H, RDW 15.9 H, MPV 7.8, Gran % 80.1 H, Lymphocytes % 10.4 L, Monocytes % 7.9, Eosinophils % 1.3, Basophils % 0.3, Absolute Granulocytes 10.2 H, Absolute Lymphocytes 1.3, Absolute Monocytes 1.0 H, Absolute Eosinophils 0.2, Absolute Basophils 0, PUBS MCHC 33.3 Microbiology 03/15 171 URINE ROUT: Legionella Antigen - RES 03/15 171 URINE ROUT: Streptococcus pneumoniae Antigen (M - RES 03/15 171 URINE ROUT: Urine Culture - RES 03/15 1256 LOWER RESP: Respiratory Culture - COLB 03/15 1256 LOWER RESP: Gram Stain - COLB 03/15 1130 BLOOD: Blood Culture - RECD 03/15 1049 BLOOD: Blood Culture - RECD Assessment/Plan Assessment: His older man with a past history of COPD (on oxygen), rheumatoid arthritis (on etanercept ). CHF, obstructive sleep apnea, current smoker and is being evaluated for fever and shortness of breath. Differential diagnoses: #1 COPD exacerbation #2 acute bronchitis #3 pneumonia #4 rheumatoid arthritis Below is the problem list and plan: #1 shortness of breath-currently stable. Has received intravenous steroids. Change to by mouth prednisone. Although, the diagnosis is entirely unclear about the etiology of sudden onset of shortness of breath, an infectious source seems more likely. Change the antibiotic to by mouth Augmentin for a total of 5 days. Improved significantly. #2 rheumatoid arthritis-has a history of any incidental finding of nodules of lung. Since the patient has rheumatoid arthritis, and has taken etanercept recently; which might add to the contribution of immunological process in this respiratory pathology. Methotrexate and folic acid at the time of discharge. #3 IXF-inxawtzbeanf-sshikqri spironolactone and Lasix and metoprolol. #4 diabetes-blood sugars remained elevated this a.m. Currently on 60 units long -acting insulin once daily. Currently on insulin sliding scale while in the hospital. Discharge with the recommendation to check blood glucose regularly and alert the M.D. if above 400. Problem List: 1. COPD with acute exacerbation 2. Hyperglycemia 3. Leukocytosis Pain Ratin Pain Location: None Pain Goal: Pain 4 or less Pain Plan: Tylenol when necessary Tomorrow's Labs & Rationales: No labs necessary-the patient is to be discharged.
[2016-03-16 06:01] VITALS: BP 134/66
[2016-03-16 08:25] LABS: ABSOLUTE BASOPHIL COUNT 0 /CUMM (0.0-0.2); ABSOLUTE EOSINOPHIL COUNT 0 /CUMM (0.0-0.7); ABSOLUTE GRANULOCYTE CT 6.7 /CUMM (1.4-6.5); ABSOLUTE LYMPH COUNT 0.5 /CUMM (1.2-3.4); ABSOLUTE MONOCYTE COUNT 0.2 /CUMM (0.10-0.60); BASOPHIL % 0 % (0.0-2.0); EOSINOPHIL % 0 % (0-5); HEMATOCRIT 39.2 % (42-52); MEAN CORPUSCULAR HGB 31.5 PG (27.0-31.0); MEAN CORPUSCULAR HGB CONC 33.1 G/DL (33.0-37.0); MEAN CORPUSCULAR VOLUME 95.2 FL (80.0-94.0); MEAN PLATELET VOLUME 8.4 FL (7.4-10.4); PLATELET COUNT 132 /CUMM (130-400); RBC DISTRIBUTION WIDTH 15.7 % (11.5-14.5); RED BLOOD CELL CT 4.11 /CUMM (4.70-6.10); WHITE BLOOD CELL COUNT 7.4 /CUMM (4.8-10.8)
[2016-03-16 08:37] VITALS: BP 134/66
--- NOTE | 2016-03-16 09:21 | PN- Pulmonary ---
Subjective HPI/Critical Care Issues: pt seen and examined no longer febrile hemodynamically stable 91% 3LNC at baseline solumedrol down to 40mg bid Objective Current Medications: Current Medications Sig/Lakisha Start time Last Medication Dose Route Stop Time Status Admin Acetaminophen 650 MG Q6P PRN 03/15 1300 AC PO Acetaminophen 0 .STK-MED ONE 03/15 1251 DC PO Acetaminophen 650 MG ONCE ONE 03/15 1215 DC 03/15 PO 03/15 1216 1316 Albuterol Sulfate 3 ML EVERY 4 HRS/AWAKE 03/15 2000 AC 03/16 INH 0852 Albuterol Sulfate 3 ML ONCE ONE 03/15 1145 DC 03/15 INH 03/15 1146 1200 Allopurinol 300 MG DAILY 03/16 1000 AC 03/16 PO 0836 Atorvastatin Calcium 10 MG 1700 03/15 1700 AC 03/15 PO 2056 Azithromycin 500 MG DAILY 03/16 1000 AC Sodium Chloride 250 ML IV Azithromycin 500 MG ONCE ONE 03/15 1230 DC 03/15 Sodium Chloride 250 ML IV 03/15 1329 1316 Azithromycin 500 MG ONCE ONE 03/15 1145 CAN Dextrose/Water 250 ML IV 03/15 1244 Budesonide/ 2 PUF BID PRN 03/15 1300 AC Formoterol Fumarate INH Ceftriaxone Sodium 1,000 MG DAILY 03/16 1000 AC 03/16 IV 0836 Ceftriaxone Sodium 0 .STK-MED ONE 03/15 1209 DC .ROUTE Ceftriaxone Sodium 1,000 MG ONCE ONE 03/15 1145 DC 03/15 IV 03/15 1146 1227 Duloxetine HCl 60 MG DAILY 03/16 1000 AC 03/16 PO 0836 Folic Acid 1 MG DAILY 03/15 2200 AC 03/16 PO 0836 Furosemide 40 MG QAM 03/16 1000 AC 03/16 PO 0836 Furosemide 0 .STK-MED ONE 03/15 1252 DC PO Furosemide 40 MG ONE ONE 03/15 1215 DC 03/15 PO 03/15 1216 1316 Heparin Sodium 5,000 UNIT Q8 03/15 1400 AC 03/16 (Porcine) SC 0519 Heparin Sodium 0 .STK-MED ONE 03/15 1303 DC (Porcine) .ROUTE Ibuprofen 600 MG Q6P PRN 03/15 1300 AC 03/15 PO 2056 Insulin Aspart 0 TIDAC 03/15 2030 AC 03/16 SC 0835 Insulin Detemir 60 UNITS AT BEDTIME 03/15 2200 AC 03/15 SC 2055 Ipratropium [place] 2.5 ML ONCE ONE 03/15 1145 DC 03/15 INH 03/15 1146 1200 Methylprednisolone 40 MG BID 03/16 2200 AC IV Methylprednisolone 40 MG Q8 03/15 2200 DC 03/16 IV 0517 Methylprednisolone 0 .STK-MED ONE 03/15 1208 DC .ROUTE Methylprednisolone 125 MG ONCE ONE 03/15 1145 DC 03/15 IV 03/15 1146 1227 Metoprolol Tartrate 50 MG BID 03/15 2200 AC 03/16 PO 0837 Metoprolol Tartrate 0 .STK-MED ONE 03/15 1251 DC PO Metoprolol Tartrate 50 MG ONCE ONE 03/15 1215 DC 03/15 PO 03/15 1216 1316 Morphine Sulfate 0 .STK-MED ONE 03/15 1253 DC .ROUTE Nicotine 21 MG 1300 03/16 1300 AC TOP Nicotine 0 .STK-MED ONE 03/15 1303 DC TOP Nicotine 21 MG DAILY 03/15 1254 DC 03/15 TOP 1316 Omeprazole 20 MG BID 03/15 2200 AC 03/16 PO 0836 Omeprazole 0 .STK-MED ONE 03/15 1252 DC PO Omeprazole 20 MG ONCE ONE 03/15 1215 DC 03/15 PO 03/15 1216 1316 Oxycodone HCl 0 .STK-MED ONE 03/15 1302 DC PO Oxycodone HCl 10 MG ONCE ONE 03/15 1300 DC 03/15 PO 03/15 1301 1316 Sodium Chloride 1,000 ML ONCE ONE 03/15 1300 DC 03/15 IV 03/15 1939 1812 Sodium Chloride 1,000 ML BOLUS ONE 03/15 1215 DC 03/15 IV 03/15 1314 1316 Spironolactone 25 MG DAILY 03/16 1000 AC 03/16 PO 0835 Spironolactone 25 MG ONCE ONE 03/15 1215 DC 03/15 PO 03/15 1216 1316 Tamsulosin HCl 0.4 MG QPM 03/15 2200 AC 03/15 PO 2056 Tiotropium [place] 1 PUF DAILY 03/16 1000 AC 03/16 INH 0836 Vital Signs & I&O Last 24 Hrs of Vitals and I&O: Vital Signs Date Time Temp Pulse Resp B/P Pulse O2 O2 Flow FiO2 Ox Delivery Rate 03/16 0854 91 Nasal 3.0L Cannula 03/16 0837 95 134/66 / 0601 98.3 95 20 134/66 96 Nasal 6.0L Cannula 03/16 0540 96 CPAP 6.0L 03/16 0533 92 89 / 0530 91 84 / 0230 82 90 / 0000 Nasal 3.0L Cannula 03/15 2235 98.5 90 20 120/60 97 Nasal Cannula 03/15 2142 98 94 03/15 1729 Nasal 3.0L Cannula 03/15 1629 98.5 91 20 110/60 90 Nasal Cannula 03/15 1618 Nasal 3.0L Cannula 03/15 1600 Nasal 3.0L Cannula 03/15 1421 99.4 88 18 109/67 99 03/15 1316 100.6 03/15 1316 110 118/68 03/15 1251 100.6 110 20 118/68 98 Nasal 2.0L Cannula 03/15 1225 94 Nasal 3.0L Cannula 03/15 1040 94 Nasal 3.0L Cannula 03/15 1035 100.8 109 20 136/76 94 Nasal 3.0L Cannula Intake & Output 03/16 1600 03/16 0800 03/16 0000 Intake Total 400 1800 Output Total 475 750 Balance -75 1050 Intake, IV 300 1200 Intake, Oral 100 600 Number 0 Bowel Movements Output, Urine 475 750 Patient 250 lb Weight Exam Other Physical Findings: General - Alert, awake and oriented HEENT - normocephalic, atraumatic Cardiovascular - S1, S2 Lungs - decreased breath sounds; prolonged end expiratory phase. Abdomen - soft, bowel sounds positive, no tenderness Extremities - without edema or cyanosis joint pains and decreased range of motion, primarily right wrist, some redness Results Last 24 Hrs of Lab Results: Laboratory Tests 03/16/16 0730: Anion Gap 8, Estimated GFR > 60, BUN/Creatinine Ratio 23.3, CBC w Diff Pending, WBC Pending, RBC Pending, Hgb Pending, Hct Pending, MCV Pending, MCH Pending, RDW Pending, Plt Count Pending, MPV Pending, Gran % Pending, Lymphocytes % Pending, Monocytes % Pending, Eosinophils % Pending, Basophils % Pending, Absolute Granulocytes Pending, Absolute Lymphocytes Pending, Absolute Monocytes Pending, Absolute Eosinophils Pending, Absolute Basophils Pending, PUBS MCHC Pending 03/15/16 1710: Urinalysis LIGHT H, Urine Color YEL, Urine Clarity CLEAR, Urine pH 7.0, Ur Specific [place] 1.015, Urine Protein TRACE H, Urine Ketones NEG, Urine Nitrite NEG, Urine Bilirubin NEG, Urine Urobilinogen 0.2, Ur Leukocyte Esterase NEG, Ur Microscopic SEDIMENT EXAMINED, Urine WBC RARE, Urine Hemoglobin NEG, Urine Glucose 250 H 03/15/16 1342: Lactic Acid 1.8 03/15/16 1212: Urine Color Cancelled, Urine Clarity Cancelled, Urine pH Cancelled, Ur Specific [place] Cancelled, Urine Protein Cancelled, Urine Ketones Cancelled, Urine Nitrite Cancelled, Urine Bilirubin Cancelled, Urine Urobilinogen Cancelled, Ur Leukocyte Esterase Cancelled, Ur Microscopic Cancelled, Urine Hemoglobin Cancelled, Urine Glucose Cancelled 03/15/16 1049: Anion Gap 8, Estimated GFR > 60, BUN/Creatinine Ratio 16.7, Glucose 222 H, Lactic Acid 2.3 H, Calcium 9.5, Magnesium 1.9, Total Bilirubin 0.8, AST 13 L, ALT 24, Alkaline Phosphatase 85, Troponin I < 0.01, Ess-Z-Abiofwraivi Pept 443 H, Total Protein 7.1, Albumin 3.9, Globulin 3.2, Albumin/Globulin Ratio 1.2, CBC w Diff NO MAN DIFF REQ, RBC 4.40 L, MCV 95.0 H, MCH 31.6 H, RDW 15.9 H, MPV 7.8, Gran % 80.1 H, Lymphocytes % 10.4 L, Monocytes % 7.9, Eosinophils % 1.3, Basophils % 0.3, Absolute Granulocytes 10.2 H, Absolute Lymphocytes 1.3, Absolute Monocytes 1.0 H, Absolute Eosinophils 0.2, Absolute Basophils 0, [facility] MCHC 33.3 Impression/Plan Impression/Plan Impression/Plan: Impression 70 year old man -fever maybe secondary to an RA flare vs bronchitis, no obvious pna on cxr -COPD -BOB -lung nodules Plan -f/u wbc, short course of abx based on cx -steroids to be transitioned to PO prednisone, would have rheumatology assist in taper -keep Dr. Headley (advanced nursing professor) informed -TRC/Nebs -CPAP @9cm H20 nocturnally -cont symbicort/spiriva -April 2015 CAT scan shows interval resolution of a right lower lobe bronchopneumonia and multiple stable pulmonary nodules. There is a new 3 mm nodule in the left upper lobe and mild pulmonary emphysema. Largest nodule unchanged from 03/15/[address] chest ordered 05/2016 -DVT prophylaxis at all times DC planning
[2016-03-16] MEDS ORDERED: PREDNISONE10 M2 PO (09:40)
[2016-03-16] MEDS ORDERED: AUGMENTIN 875-1 EACH PO (09:40)
--- NOTE | 2016-03-16 09:44 | Patient Discharge Instructions ---
Discharge Instructions General Discharge Information You were seen/treated for: 1. shortness of breath 2. COPD exacerbation Special Instructions: 1. Please see your PCP within a week of discharge. 2. Please see your Rheumatolgist within a week of discharge. Acute Coronary Syndrome Inclusion Criteria At DC or during hospital stay patient has or had the following: ACS DIAGNOSIS No Discharge Core Measures Meds if any: Prescribed or Continued at Discharge Meds if any: NOT Prescribed or Continued at Discharge Congestive Heart Failure Inclusion Criteria At DC or during hospital stay patient has or had the following: CHF DIAGNOSIS No Discharge Core Measures Meds if any: Prescribed or Continued at Discharge Meds if any: NOT Prescribed or Continued at Discharge Cerebrovascular accident Inclusion Criteria At DC or during hospital stay patient has or had the following: CVA/TIA Diagnosis No Discharge Core Measures Meds if any: Prescribed or Continued at Discharge Meds if any: NOT Prescribed or Continued at Discharge Venous thromboembolism Inclusion Criteria VTE Diagnosis No VTE Type NONE VTE Confirmed by (Test) NONE Discharge Core Measures - Per Current guidelines, there needs to be overlap - treatment for the first 5 days of Warfarin therapy. - If discharged on Warfarin prior to 5 days of - overlap therapy, the patient will need to be - assessed for post discharge needs including - *Post discharge parental anticoagulation - *Warfarin and/or parental anticoagulation education - *Follow up date to check INR post discharge At least 5 days overlap therapy as Inpatient No Meds if any: Prescribed or Continued at Discharge Note: Overlap Therapy is Warfarin and Anticoagulant Meds if any: NOT Prescribed or Continued at Discharge
--- NOTE | 2016-03-29 16:10 | Discharge Summary ---
See Addendum Visit Information Visit Dates Admission Date: 03/15/16 Discharge Date: 03/29/16 Hospital Course Course Attending Physician: AUDI GARCIA MD Primary Care Physician: CONNER RODRIGUEZ MD Hospital Course: Mr Claudio is a 68-year-old man with a past medical history of COPD(3L O2), congestive heart failure, hypertension, hyperlipidemia, diabetes mellitus, smoker(50pk yrs) was evaluated for shortness of breath. Prior to the day of presenation, the pt hd right wrist pain, and took a shot of etanercept for RA flare without consulting his marine engine machinist apprentice. At the time of admission, he had leucocytosis WBC 12.7, Hb 13.9, Bicarbonate 39 (due to COPD ), Normal renal function- Sr Cr 0.9. Radiological findings revealed- CXR did not reveal any acute changes. Tmax 100.8 at the time of admission. Admission diagnosis: 1. Chronic hypoxic respiratory failure. 2. Rheumatoid arthritis. Below is the problem list and plan: 1. Shortness of breath- Pt was started on antibiotics, and was transitioned to Augmentin. He was also started on a short course of steroids, TRC nebs while in the hospital. He had an episode of worsening shortness of breath, when he required 6L oxygen to maintain the O2 sat > 92, which improved after receiving TRC nebs. The reason for sudden decompensation was unclear. Since, the pt had a pulmonary nodule on his previous CT scan and a h/o RA, Dr. Blake was consutled for advice. Also talked to the pt's marine engine machinist apprentice, Dr. Headley about the management plan to continue a short course of steroids, while he was on etanercept. CPAP at night for BOB. #2 rheumatoid arthritis-Etanercept was held during the stay in the hospital, and methotrexate and folic acid were begun at the time of discharge. #3 KOZ-fwcjlimifsdu-xidewtlkl on spironolactone, Lasix and metoprolol. #4 diabetes- Pt was on 60 units long-acting insulin once daily. He was also on insulin sliding scale while in the hospital. Discharged home w/ a recommendation to check blood glucose regularly and alert the M.D. if above 400. Allergies: Coded Allergies: NO KNOWN ALLERGIES (03/15/16) Pertinent Lab Results: RAD - XRY-PORTABLE CHEST XRAY No definite pneumonia, pneumothorax or pleural effusion. Calcification and uncoiling of the aorta. ---- Disposition Summary Disposition Principal Diagnosis: COPD Additional Diagnosis: BOB Discharge Disposition: home or self care Discharge Instructions General Discharge Information Code Status: Full Code Patient's Diet: All Web Leads diet Patient's Activity: as tolerated. Follow-Up Instructions/Appts: 1. Please see your PCP within a week of discharge. 2. Please see your Rheumatolgist within a week of discharge. Medications at Discharge Discharge Medications: Continue taking these medications: DULOXETINE HCL (Cymbalta) 60 MG CAPSULE. 60 Milligram ORAL Every Morning Comments: LAST DOSE GIVEN ON 01/20/15 AT 9:00AM Allopurinol (Allopurinol) 300 MG TAB 300 Milligram ORAL DAILY Comments: LAST DOSE GIVEN ON 01/20/15 AT 9:00AM. Folic Acid (Folic Acid) 1 MG TABLET 1 Tablet ORAL TWICE DAILY Comments: Last Taken: 03/16/16 Time: 10AM Omeprazole (Omeprazole) 20 MG CAPSULE. 1 Capsule ORAL TWICE DAILY Comments: Last Taken: 03/16/16 Time: 10 AM Spironolactone (Spironolactone) 25 MG TABLET 25 Milligram ORAL DAILY Comments: LAST DOSE GIVEN ON 01/20/15 AT 9:00AM. Furosemide (Furosemide) 40 MG TABLET 40 Milligram ORAL Every Morning Comments: LAST DOSE GIVEN ON 01/20/15 AT 9:00AM. Tamsulosin Hydrochloride (Flomax) 0.4 MG CAP.ER.24H 0.4 Milligram ORAL Every night Comments: LAST DOSE GIVEN ON 01/19/15 AT 9:30PM. Lovastatin (Lovastatin) 40 MG TABLET 40 Milligram ORAL Every night Comments: ATORVASTATIN GIVEN IN HOSPITAL (LIPITOR). LAST DOSE GIVEN ON 01/20/15 AT 4:30PM. Insulin-Lantus (Lantus Insulin) 100 UNIT/ML VIAL 60 Units Inject into fatty tissue NIGHTLY Comments: INSULIN DETEMIR GIVEN IN HOSPITAL. LAST DOSE OF 50MG GIVEN ON 01/19/15 AT 9:30PM Budesonide/Formoterol Fum[place] (Symbicort 160-4.5 Mcg Inhaler) 160 MCG/4.5 MCG PUF 2 PUFF Inhale through mouth TWICE DAILY as needed for COPD Comments: LAST DOSE GIVEN ON 01/20/15 AT 9:00AM. Albuterol Sulfate (Albuterol Sulfate) 3 ML NEB 3 Milliliters Inhale through mouth 5XDAILY Comments: LAST DOSE GIVEN ON 01/20/15 AT 4:30PM. Tiotropium [place] (Spiriva) 18 MCG CAP.W.DEV 1 Capsule Inhale through mouth DAILY Qty = 30 Comments: NOT GIVEN THIS HOSPITALIZATION Metoprolol Tartrate (Metoprolol Tartrate) 50 MG TAB 1 Tablet ORAL TWICE DAILY Qty = 60 Comments: LAST DOSE GIVEN ON 01/20/15 AT 9:00AM. Fluticasone Propionate (Fluticasone Propionate) 0.05 MG/Actuation SPR 2 [place] Both sides of nose DAILY Qty = 16 Comments: NOT GIVEN THIS HOSPITALIZATION. Etanercept (Enbrel) 50 MG/ML TAPAN 50 Milligram Inject into fatty tissue EVERY SATURDAY Qty = 392 Comments: NOT GIVEN THIS HOSPITALIZATION. Methotrexate (Methotrexate) 2.5 MG TABLET 5 Tablet ORAL Once a Week Comments: NOT GIVEN IN HOSPITAL Guaifenesin (Mucinex) [address] Tablet ORAL TWICE DAILY as needed for MUCUS Comments: LAST DOSE GIVEN ON 01/20/15 AT 9:00AM. Oxycodone HCl/Acetaminophen (Oxycodone-Acetaminophen 10-325) 10 MG-325 MG TABLET 1 Tablet ORAL 4 times daily as needed as needed for PAIN Qty = 120 Comments: NOT GIVEN IN HOSPITAL Alendronate Sodium (Alendronate Sodium) 70 MG TABLET 1 Tablet ORAL Once a Week Qty = 12 Instructions: in the morning, at least 30 minutes before the first food, beverage, or medication of the day Comments: Last Taken: 03/16/16 Time: 10AM Calcium Carbonate/Vitamin D3 (Caltrate 600 + D Tablet) 600 MG-800 TABLET 1 Tablet ORAL DAILY Comments: NOT GIVEN IN HOSPITAL Cyanocobalamin (Vitamin B-12) (Cyanocobalamin Injection) 1,000 MCG/ML VIAL 1 Milliliters INTRAMUSC ONCE A MONTH Comments: Last Taken: 03/16/16 Time: 10AM Start taking the following new medications: Prednisone (Prednisone) 10 MG TABLET 1 Tablet ORAL TWICE DAILY Qty = 10 No Refills Instructions: plese take 4 tabs(40mg) 2 3 tabs(30mg) 03/18 2 tabs(20mg) 03/19 1 tab(10mg) 03/20. please stop on 03/20/16. Comments: NOT GIVEN IN HOSPITAL Amoxicillin/Potassium Clav (Augmentin 875-125 Tablet) 875 MG-125 MG TABLET 1 Tablet ORAL TWICE DAILY Days = 4 No Refills Comments: Last Taken: 03/16/16 Time: 11AM Copies To: MICHAEL TINEO,CONNER Hutchison Attending MD Review Statement Documenting Attending: AUDI GARCIA MD
== END 2016-03-16 13:23 | disposition home health service (06) | DRG 191 ==
LOC: ENRESERVTM → ENRESERVDT → ERH 10:20 → 2NA 13:31 → ERHI 13:31 → ENPENDDIS 13:31 → 2NA 15:52
PROVIDERS: Internal Medicine; Physician Assistant Surgical; ADMIT Internal Medicine
PROC: 5A09357 Assistance with Respiratory Ventilation, Less than 24 Consecutive Hours, Continuous Positive Airway Pressure (ICD-10-PCS; principal; 2016-03-15)
DX: J44.0 Chronic obstructive pulmonary disease with (acute) lower respiratory infection (principal); I50.32 Chronic diastolic (congestive) heart failure; J96.11 Chronic respiratory failure with hypoxia; I11.0 Hypertensive heart disease with heart failure; E11.65 Type 2 diabetes mellitus with hyperglycemia; E78.5 Hyperlipidemia, unspecified; J20.9 Acute bronchitis, unspecified; M06.9 Rheumatoid arthritis, unspecified; J44.1 Chronic obstructive pulmonary disease with (acute) exacerbation; G47.33 Obstructive sleep apnea (adult) (pediatric); N40.0 Benign prostatic hyperplasia without lower urinary tract symptoms; F32.9 Major depressive disorder, single episode, unspecified; F17.210 Nicotine dependence, cigarettes, uncomplicated; R91.8 Other nonspecific abnormal finding of lung field; K21.9 Gastro-esophageal reflux disease without esophagitis; Z79.4 Long term (current) use of insulin
CPT/HCPCS: 2NAP; 36415; 81001; 82436; 87040; 87070; 87086; 87449; 87450; 87804; 87804-59; 93005; 93010; 96374; 96375; 99291; J0456; J0696; J1644; J2920; J2930; J3490; J7040; J7060

== ENCOUNTER 2016-04-30 10:32 | Emergency (ER) | payer OTHER, MEDICARE ==
[~2016-04-30] VITALS: Ht 172.7 cm; Wt 117.9 kg
[~2016-04-30 10:32] MED LIST changes: +ALENDRONATE SOD70 M2 PO; +AUGMENTIN 875-1 EACH PO; +CALTRATE 600 +1 EACH PO; +CYANOCOBAL1000 MCG/2 IM; +OXYCODONE-ACET1 EAC1 PO; +PREDNISONE10 M2 PO
--- NOTE | 2016-04-30 10:44 | ED DYSPNEA/ASTHMA COMPLAINT ---
History of Present Illness General Chief Complaint: Dyspnea (COPD, CHF, Other) Stated Complaint: BIBA FOR SOB Source: patient, family, old records, EMS Exam Limitations: no limitations Vital Signs & Intake/Output Vital Signs & Intake/Output Vital Signs Date Time Temp Pulse Resp B/P Pulse O2 O2 Flow FiO2 Ox Delivery Rate 04/30 1232 98.0 102 24 110/60 92 Nasal 3.0L Cannula 04/30 1205 103 96 04/30 1140 98 BIPAP 40% 04/30 1047 97 CPAP 04/30 1044 111 96 04/30 1044 97.9 117 24 123/78 97 CPAP 40% Allergies Coded Allergies: NO KNOWN ALLERGIES (03/15/16) Reconcile Medications Albuterol Sulfate 2.5 MG/3 ML (0.083 %) VIAL.NEB 1 Vial INH/TAPAN 5 TIMES A DAY COPD (Reported) Alendronate Sodium 70 MG TABLET 1 TAB PO QW BONE (Reported) in the morning, at least 30 minutes before the first food, beverage, or medication of the day Allopurinol 300 MG TABLET 1 TAB PO DAILY GOUT (Reported) Budesonide/Formoterol Fumarate (Symbicort 160-4.5 Mcg Inhaler) 160 MCG-4.5 MCG/ ACTUATION HFA.AER.AD 2 PUF INH BID PRN COPD (Reported) Calcium Carbonate/Vitamin D3 (Caltrate 600 + D Tablet) 600 MG-800 TABLET 1 TAB PO DAILY SUPPLEMENT (Reported) Cyanocobalamin (Vitamin B-12) (Cyanocobalamin Injection) 1,000 MCG/ML VIAL 1 ML IM Q30D SUPPLEMENT (Reported) Duloxetine HCl (Cymbalta) 60 MG CAPSULE.DR 1 CAP PO DAILY MENTAL HEALTH ( Reported) Etanercept (Enbrel) 50 MG/ML (0.98 ML) SYRINGE 50 SC QSUN ARTHRITIS (Reported ) Folic Acid 1 MG TABLET 1 TAB PO BID SUPPLEMENT (Reported) Furosemide 40 MG TABLET 1 TAB PO DAILY WATER PILL (Reported) Insulin Glargine,Hum.rec.anlog (Lantus Solostar) 100 UNIT/ML (3 ML) INSULN.PEN 60 UNIT SC QPM DIABETES (Reported) Lovastatin 40 MG TABLET 1 TAB PO QPM CHOLESTEROL (Reported) with food Methotrexate 2.5 MG TABLET 5 TAB PO QW ARTHRITIS (Reported) Metoprolol Tartrate (Lopressor) 50 MG TABLET 1 TAB PO BID HEART (Reported) Omeprazole 20 MG CAPSULE.DR 1 CAP PO BID GI (Reported) Oxycodone HCl/Acetaminophen (Oxycodone-Acetaminophen 10-325) 10 MG-325 MG TABLET 1 TAB PO 4XDP PRN PAIN (Reported) Prednisone 20 MG TABLET 1 TAB PO DAILY COPD (Reported) Prednisone (Deltasone) 20 MG TABLET 2 TAB PO DAILY COPD Spironolactone (Aldactone) 25 MG TABLET 1 TAB PO DAILY WATER PILL (Reported) Tamsulosin HCl (Flomax) 0.4 MG CAP.ER.24H 1 CAP PO DAILY PROSTATE (Reported) Tiotropium [place] (Spiriva) 18 MCG CAP.W.DEV 1 CAP INH DAILY COPD (Reported) Triage Nurses Notes Reviewed? yes HPI: Patient was admitted a month ago for pneumonia and COPD exacerbation. Patient is on chronic O2 and uses CPAP at night. Patient was feeling better but then last week he began having increasing shortness of breath and dyspnea on exertion. Patient went to see his primary care physician who increased his steroids and put on antibiotic. Patient was doing located over the weekend but then this morning felt very short of breath on his bathroom. His visiting nurse went and saw him and called 911 after his oxygen saturation was down to 70% on his 3 L of oxygen. Upon EMS arrival patient's oxygen saturation was 88% on his 3 L. Patient had decreased breath sounds. Patient was given IV steroids and DuoNeb and was started on BiPAP. Upon arrival to the emergency room patient is much more comfortable and speaking complete sentences through the BiPAP mask. Patient denies any chest pain or palpitations. There is no nausea or vomiting. There are no fevers or chills. Past History [place] past [place] No Medical History Any Pertinent Medical History? 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 Refer elsewhere in this and other documents for additional details. According to the patient's report he was asymptomatic and functionally unrestricted by his back prior to this injury. He did have functional limitation and restriction because of his other medical conditions. Refer to other inpatient and outpatient medical records for details regarding pre-injury functional status and deficits. History of MRSA: No History of VRE: No History of CDIFF: No Influenza Vaccine: 11/12/15 Surgical History Surgical History: non-contributory, No prior surgery in the lumbar region See Admission History & Physical Examination Report for detailed Hx. Psychosocial History Who do you live with Spouse Services at Home Nursing, Oxygen (4 litres) What is your primary language Syrian Tobacco Use: Quit >30 days ago ETOH Use: denies use Illicit Drug Use: denies illicit drug use Family History Family History, If Any: MOTHER FHx: cancer Hx Contributory? No Review of Systems Review of Systems Constitutional: Reports: no symptoms. EENTM: Reports: no symptoms. Respiratory: Reports: see HPI, cough, short of breath, wheezing. Cardiovascular: Reports: no symptoms. GI: Reports: no symptoms. Genitourinary: Reports: no symptoms. Musculoskeletal: Reports: no symptoms. Skin: Reports: no symptoms. Neurological/Psychological: Reports: no symptoms. Hematologic/Endocrine: Reports: no symptoms. Immunologic/Allergic: Reports: no symptoms. All Other Systems: Reviewed and Negative Physical Exam Physical Exam General Appearance: well developed/nourished, alert, awake, anxious, moderate distress Head: atraumatic Eyes: Bilateral: PERRL, EOMI. Ears, Nose, Throat: normal pharynx, normal ENT inspection, hearing grossly normal Neck: normal inspection, supple, full range of motion, NO jvd Respiratory: decreased breath sounds, wheezing Cardiovascular: regular rate/rhythm, normal peripheral pulses Gastrointestinal: normal bowel sounds, soft, non-tender, no organomegaly Extremities: normal inspection, normal capillary refill, normal range of motion, no edema Neurologic/Psych: no motor/sensory deficits, awake, alert, oriented x 3, normal mood/affect Lymphatic: no anterior cervical michael Core Measures ACS in differential dx? No Severe Sepsis Present: No Septic Shock Present: No Progress Differential Diagnosis: AMI, bronchitis, CHF, COPD, pneumonia Plan of Care: Orders Procedure Date/time Status OXYGEN SETUP (GEN) 04/30 1219 Complete BIPAP 04/30 1205 Complete ARTERIAL BLOOD GAS (GEN) 04/30 1102 Active Telemetry/Early Morning 04/30 1101 Active BLOOD CULTURE 04/30 1101 Active TROPONIN LEVEL 04/30 1101 Complete COMPREHENSIVE METABOLIC PANEL 04/30 1101 Complete CBC WITHOUT DIFFERENTIAL 04/30 1101 Complete BIPAP 04/30 1044 Complete EKG 04/30 1033 Active Laboratory Tests 04/30/16 1135: pH 7.40, pCO2 55 H, pO2 102 H, HCO3 33 H, ABG O2 Sat (Measured) 98.0, P-50 ( Temp Corrected) N, Carboxyhemoglobin 1.6, O2 Concentration % 40%, Respiration Rate 20, O2 Delivery Method BIPAP, Vent Mode ST, Expiratory Pressure 6, Inspiratory Pressure 18, Phlebotomy Draw Site RIGHT RADIAL 04/30/16 1125: Anion Gap 10, Estimated GFR > 60, BUN/Creatinine Ratio 23.8, Glucose 162 H, Calcium 9.7, Total Bilirubin 0.9, AST 15 L, ALT 36, Alkaline Phosphatase 67, Troponin I < 0.01, Total Protein 6.7, Albumin 3.7, Globulin 3.0, Albumin/ Globulin Ratio 1.2, CBC w Diff NO MAN DIFF REQ, RBC 4.83, MCV 94.7 H, MCH 31.5 H, RDW 15.4 H, MPV 7.3 L, Gran % 75.6 H, Lymphocytes % 13.6 L, Monocytes % 9.9 H, Eosinophils % 0.6, Basophils % 0.3, Absolute Granulocytes 7.5 H, Absolute Lymphocytes 1.3, Absolute Monocytes 1.0 H, Absolute Eosinophils 0.1, Absolute Basophils 0, PUBS MCHC 33.3 Microbiology 04/30 1211 BLOOD: Blood Culture - RECD 04/30 1125 BLOOD: Blood Culture - RECD Diagnostic Imaging: Viewed by Me: Radiology Read. Discussed w/RAD: Radiology Read. CXR Impression: SEE BELOW Initial ED EKG: SINUS RHYTHM WITH BIFASCICULAR BLOCK Prior EKG: unchanged Rhythm Strip: normal sinus rhythm Comments: PATIENT: JANETTE PAEZ PRESENT AGE: 70 PATIENT ACCOUNT NO: [id number] : 43 LOCATION: [facility] ORDERING PHYSICIAN: PATRICIA CROWE MD SERVICE DATE: 04/30/16-110 EXAM TYPE: RAD - XRY-PORTABLE CHEST XRAY EXAMINATION: XR PORTABLE CHEST CLINICAL INFORMATION: Pneumonia. Shortness of breath. COMPARISON: Chest radiograph 03/15/2016. TECHNIQUE: Portable AP view of the chest was obtained. FINDINGS: There are ill-defined opacities within the lung bases that may represent a manifestation of subsegmental atelectasis or consolidative disease. There is no pneumothorax. No large pleural effusion. The cardiac silhouette and upper mediastinal contours are normal. No acute osseous finding. IMPRESSION: There are ill-defined bibasilar opacities that may represent a manifestation of subsegmental atelectasis or consolidative disease. DICTATED BY: WENDY SAL MD DATE/TIME DICTATED:04/30/161150 PLUMBING MANAGER:FINA DATE/TIME TRANSCRIBED:04/30/161150 CONFIDENTIAL, DO NOT COPY WITHOUT APPROPRIATE AUTHORIZATION. <Electronically signed in Other Vendor System> SIGNED BY: WENDY SAL MD 04/30 1158 Patient ambulated in the emergency department on 3 L of oxygen and did well. Patient feels on to go home. Departure Departure Disposition: HOME OR SELF CARE Condition: Stable Clinical Impression Primary Impression: COPD exacerbation Referrals: MICHAEL TINEO,CONNER Hutchison (PCP/Family) JACKLYN TINEO,JONI Additional Instructions: Take prednisone 40 mg for 3 days and then 30 mg for 3 days and 20 mg for 3 days then decrease to hear usual 10 mg a day. Continue antibiotics as previously prescribed. Return if symptoms worsen or for any concerns. Departure Forms: Customer Survey General Discharge Information Prescriptions: Current Visit Scripts Prednisone (Deltasone) 2 TAB PO DAILY #6 Critical Care Note Critical Care Note Critical Care Time: mins: (30 MIN)
[2016-04-30 11:39] LABS: ABSOLUTE BASOPHIL COUNT 0 /CUMM (0.0-0.2); ABSOLUTE EOSINOPHIL COUNT 0.1 /CUMM (0.0-0.7); ABSOLUTE GRANULOCYTE CT 7.5 /CUMM (1.4-6.5); ABSOLUTE LYMPH COUNT 1.3 /CUMM (1.2-3.4); BASOPHIL % 0.3 % (0.0-2.0); EOSINOPHIL % 0.6 % (0-5); GRANULOCYTE % 75.6 % (42.2-75.2); HEMATOCRIT 45.8 % (42-52); MEAN CORPUSCULAR HGB 31.5 PG (27.0-31.0); MEAN CORPUSCULAR HGB CONC 33.3 G/DL (33.0-37.0); MEAN CORPUSCULAR VOLUME 94.7 FL (80.0-94.0); MEAN PLATELET VOLUME 7.3 FL (7.4-10.4); PLATELET COUNT 156 /CUMM (130-400); RBC DISTRIBUTION WIDTH 15.4 % (11.5-14.5); RED BLOOD CELL CT 4.83 /CUMM (4.70-6.10); WHITE BLOOD CELL COUNT 9.9 /CUMM (4.8-10.8)
--- NOTE | 2016-04-30 11:58 | RADIOLOGY REPORT ---
EXAMINATION: XR PORTABLE CHEST CLINICAL INFORMATION: Pneumonia. Shortness of breath. COMPARISON: Chest radiograph 03/15/2016. TECHNIQUE: Portable AP view of the chest was obtained. FINDINGS: There are ill-defined opacities within the lung bases that may represent a manifestation of subsegmental atelectasis or consolidative disease. There is no pneumothorax. No large pleural effusion. The cardiac silhouette and upper mediastinal contours are normal. No acute osseous finding. IMPRESSION: There are ill-defined bibasilar opacities that may represent a manifestation of subsegmental atelectasis or consolidative disease.
--- NOTE | 2016-04-30 12:13 | Cons- Pulmonary ---
See Addendum General Information and HPI Consulting Request Date of Consult: 04/30/16 Requested By: Dr. Gomez Reason for Consult: exacerbation of COPD Source of Information: patient Exam Limitations: no limitations History of Present Illness: 70 year old man. COPD on symbicort 160/4.5 2 puffs am 2 puffs pm with rinsing of the mouth, spiriva once daily (handihaler), on oxygen 3.5L usually. Recent hospitalization. Now with dyspnea and wheezing. Smoking few cigarettes daily. Prednisone for RA, Off Enbrel. On Methotrexate. History of multiple nodules of lung April 2015 CAT scan shows interval resolution of a right lower lobe bronchopneumonia and multiple stable pulmonary nodules. There is a new 3 mm nodule in the left upper lobe and mild pulmonary emphysema. Largest nodule unchanged from 03/15/[address] chest ordered 05/2016 History of obstructive sleep apnea syndrome Uses Sleep standing rock Compliance - March 2016 Usage Days - 80% >4 hours - 73.3% AHI - 3.2 PAP - CPAP 9 cmH20 Brought to ED for dyspnea, received bipap, solumedrol. No leukocytosis. Allergies/Medications Allergies: Coded Allergies: NO KNOWN ALLERGIES (03/15/16) Home Med List: Albuterol Sulfate 3 ML NEB 3 ML INH 5XDAILY COPD (Reported) Alendronate Sodium 70 MG TABLET 1 TAB PO QW BONE (Reported) in the morning, at least 30 minutes before the first food, beverage, or medication of the day Allopurinol 300 MG TAB 300 MG PO DAILY GOUT (Reported) Amoxicillin/Potassium Clav (Augmentin 875-125 Tablet) 875 MG-125 MG TABLET 1 TAB PO BID copd/pneumonia Budesonide/Formoterol Fumara (Symbicort 160-4.5 Mcg Inhaler) 160 MCG/4.5 MCG PUF 2 PUFF INH BID PRN COPD (Reported) Calcium Carbonate/Vitamin D3 (Caltrate 600 + D Tablet) 600 MG-800 TABLET 1 TAB PO DAILY SUPPLEMENT (Reported) Cyanocobalamin (Vitamin B-12) (Cyanocobalamin Injection) 1,000 MCG/ML VIAL 1 ML IM Q30D SUPPLEMENT (Reported) DULOXETINE HCL (Cymbalta) 60 MG CAPSULE. 60 MG PO QAM MENTAL HEALTH ( Reported) Etanercept (Enbrel) 50 MG/ML TAPAN 50 MG SC QSUN ARTHRITIS (Reported) Fluticasone Propionate 0.05 MG/Actuation SPR 2 SPRAY NASB DAILY CONGESTION ( Reported) Folic Acid 1 MG TABLET 1 TAB PO BID SUPPLEMENT (Reported) Furosemide 40 MG TABLET 40 MG PO QAM HEART HEALTH (Reported) Guaifenesin (Mucinex) [address] 1 TAB PO BID PRN MUCUS (Reported) Insulin-Lantus (Lantus Insulin) 100 UNIT/ML VIAL 60 UNITS SC NIGHTLY DIABETES (Reported) Lovastatin 40 MG TABLET 40 MG PO QPM CHOLESTEROL (Reported) Methotrexate 2.5 MG TABLET 5 TAB PO QW ARTHRITIS (Reported) Metoprolol Tartrate 50 MG TAB 1 TAB PO BID HEART (Reported) Omeprazole 20 MG CAPSULE.DR 1 CAP PO BID GI (Reported) Oxycodone HCl/Acetaminophen (Oxycodone-Acetaminophen 10-325) 10 MG-325 MG TABLET 1 TAB PO 4XDP PRN PAIN (Reported) Prednisone 10 MG TABLET 1 TAB PO BID copd plese take 4 tabs(40mg) 03/17 3 tabs(30mg) 03/18 2 tabs(20mg) 03/19 1 tab(10mg) 03/20. please stop on 03/20/16. Spironolactone 25 MG TABLET 25 MG PO DAILY DIURETIC (Reported) Tamsulosin Hydrochloride (Flomax) 0.4 MG CAP.ER.24H 0.4 MG PO QPM PROSTATE ( Reported) Tiotropium [place] (Spiriva) 18 MCG CAP.W.DEV 1 CAP INH DAILY COPD EXACERBATION Current Medications: Current Medications Sig/Lakisha Start time Last Medication Dose Route Stop Time Status Admin Albuterol Sulfate 3 ML ONCE ONE 04/30 1115 DC 04/30 INH 04/30 1116 1140 Review of Systems Comments 18 point Review of Systems performed. Positive and negative pertinent findings are deliniated in the HPI. Otherwise the ROS is negative. 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 Refer elsewhere in this and other documents for additional details. According to the patient's report he was asymptomatic and functionally unrestricted by his back prior to this injury. He did have functional limitation and restriction because of his other medical conditions. Refer to other inpatient and outpatient medical records for details regarding pre-injury functional status and deficits. Surgical History Surgical History: non-contributory, No prior surgery in the lumbar region See Admission History & Physical Examination Report for detailed Hx. Family History Relations & Conditions If Any: MOTHER FHx: cancer Psychosocial History Services at Home: Nursing, Oxygen (4 litres) ETOH Use: occasional use Illicit Drug Use: denies illicit drug use Functional Ability Ambulation: independent, Ambulatory distance was limited by pulmonary condition and not by any spinal symptoms prior to this injury. Pre-injury functional ability is detailed in "Other Medical Hx" section. Exam & Diagnostic Data Last 24 Hrs of Vital Signs/I&O Vital Signs Date Time Temp Pulse Resp B/P Pulse O2 O2 Flow FiO2 Ox Delivery Rate 04/30 1140 98 BIPAP 40% 04/30 1047 97 CPAP 04/30 1044 111 96 04/30 1044 97.9 117 24 123/78 97 CPAP 40% Intake & Output 04/30 1600 04/30 0800 04/30 0000 Intake Total Output Total Balance Patient 260 lb Weight Physical Exam Other Physical Findings: General - Alert, awake and oriented HEENT - normocephalic, atraumatic Cardiovascular - S1, S2 Lungs - bilateral wheezing/rhonchi Abdomen - soft, bowel sounds positive, no tenderness Extremities - without edema or cyanosis Last 48 Hrs of Labs/Kiel: Laboratory Tests 04/30/16 1135: pH 7.40, pCO2 55 H, pO2 102 H, HCO3 33 H, ABG O2 Sat (Measured) 98.0, P-50 ( Temp Corrected) N, Carboxyhemoglobin 1.6, O2 Concentration % 40%, Respiration Rate 20, O2 Delivery Method BIPAP, Vent Mode ST, Expiratory Pressure 6, Inspiratory Pressure 18, Phlebotomy Draw Site RIGHT RADIAL 04/30/16 1125: Anion Gap 10, Estimated GFR > 60, BUN/Creatinine Ratio 23.8, Glucose 162 H, Calcium 9.7, Total Bilirubin 0.9, AST 15 L, ALT 36, Alkaline Phosphatase 67, Troponin I < 0.01, Total Protein 6.7, Albumin 3.7, Globulin 3.0, Albumin/ Globulin Ratio 1.2, CBC w Diff NO MAN DIFF REQ, RBC 4.83, MCV 94.7 H, MCH 31.5 H, RDW 15.4 H, MPV 7.3 L, Gran % 75.6 H, Lymphocytes % 13.6 L, Monocytes % 9.9 H, Eosinophils % 0.6, Basophils % 0.3, Absolute Granulocytes 7.5 H, Absolute Lymphocytes 1.3, Absolute Monocytes 1.0 H, Absolute Eosinophils 0.1, Absolute Basophils 0, PUBS MCHC 33.3 Assessment/Plan Impression/Plan: 70 year old man. COPD on symbicort 160/4.5 2 puffs am 2 puffs pm with rinsing of the mouth, spiriva once daily (handihaler), on oxygen 3.5L usually. Recent hospitalization. Now with dyspnea and wheezing. Smoking few cigarettes daily. Prednisone for RA, Off Enbrel. On Methotrexate. History of multiple nodules of lung April 2015 CAT scan shows interval resolution of a right lower lobe bronchopneumonia and multiple stable pulmonary nodules. There is a new 3 mm nodule in the left upper lobe and mild pulmonary emphysema. Largest nodule unchanged from 03/15/[address] chest ordered 05/2016 History of obstructive sleep apnea syndrome Uses Sleep standing rock Compliance - March 2016 Usage Days - 80% >4 hours - 73.3% AHI - 3.2 PAP - CPAP 9 cmH20 Brought to ED for dyspnea, received bipap, solumedrol. No leukocytosis. Impression 70 year old man - COPD exacerbation, smoking, mild hypercarbia, compensanted - BOB Plan -o2 sat >88% goal -trc/nebs -solumedrol 40mg iv q8h -zithromax for 5 days -incentive spirometry -bipap for reduction of work of breathing -can give trial without -uses CPAP at night 9cmH20 DVT prophylaxis at all times Consult Acknowledgment - Thank you for your consult request.
[2016-04-30 12:32] VITALS: BP 110/60
[2016-04-30] MEDS ORDERED: SPIRIVA18 MCG INH (13:00)
[2016-04-30] MEDS ORDERED: PREDNISONE20 M1 PO (13:00)
[2016-04-30] MEDS ORDERED: DELTASONE20 MG PO (13:03)
== END 2016-04-30 13:16 ==
LOC: ERH 10:32
PROVIDERS: Emergency Medicine
DX: J44.1 Chronic obstructive pulmonary disease with (acute) exacerbation (principal); Z87.891 Personal history of nicotine dependence
CPT/HCPCS: 1263; 1288; 87040; 93005; 93010; 99291

== ENCOUNTER 2017-05-31 12:49 | Inpatient (IN) | payer OTHER, MEDICARE ==
[~2017-05-31] VITALS: Ht 172.7 cm; Wt 113.5 kg
[~2017-05-31 12:49] MED LIST changes: +AZITHROMYCIN250 M1 PO; +DELTASONE20 MG PO; +SILVADENE20 GM TOP; +SPIRIVA18 MCG INH
--- NOTE | 2017-05-31 12:58 | ED DYSPNEA/ASTHMA COMPLAINT ---
History of Present Illness General Chief Complaint: Dyspnea (COPD, CHF, Other) Stated Complaint: PT HAS PROBLEM BREATHING Source: patient, family, old records Exam Limitations: no limitations Vital Signs & Intake/Output Vital Signs & Intake/Output Vital Signs Date Time Temp Pulse Resp B/P B/P Pulse O2 O2 Flow FiO2 Mean Ox Delivery Rate 05/31 1726 98.8 100 20 112/63 95 Nasal 3.5L Cannula 05/31 1725 100 112/63 05/31 1623 98.6 96 20 143/92 95 Nasal 3.0L Cannula 05/31 1356 96 Nasal 3.0L Cannula 05/31 1339 94 Nasal 3.5L Cannula 05/31 1253 99.0 80 20 119/71 91 Nasal 3.5L Cannula Allergies Coded Allergies: Sulfa (Sulfonamide Antibiotics) (Intermediate, RASH/HIVES 11/09/16) Triage Note: PT TO ED WITH S Triage Nurses Notes Reviewed? yes Onset: Abrupt Duration: day(s): (2), constant, getting worse Timing: recent history Severity: moderate Prior Episodes/Possible Cause: frequent episodes Modifying Factors: Worsens With: movement. Associated Symptoms: wheezing HPI: 72 Year old male with PMH of nicotine dependence (1PPDx >50 yrs), COPD on 3.5L home oxygen, BOB on CPAP HS, CHF, IDDM, RA, GERD, Gout, BPH presents with his family for evaluation complaining of progressively worsening shortness of breath nonproductive cough since yesterday. He reports to chills denies fevers no sputum production. No abdominal pain nausea vomiting. He has been compliant with all his medications including prednisone 10 mg once a day. He is not an active smoker. No leg swelling. His benefits analyst is Dr. Blake ([facility] Simeon PRITCHARD) Reconcile Medications Albuterol Sulfate 2.5 MG/3 ML (0.083 %) VIAL.NEB 1 Vial INH/TAPAN 5 TIMES A DAY COPD (Reported) Alendronate Sodium 70 MG TABLET 1 TAB PO QTHURS BONES (Reported) in the morning, at least 30 minutes before the first food, beverage, or medication of the day Allopurinol 300 MG TABLET 1 TAB PO DAILY GOUT (Reported) Budesonide/Formoterol Fumarate (Symbicort 160-4.5 Mcg Inhaler) 160 MCG-4.5 MCG/ ACTUATION HFA.AER.AD 2 PUF INH BID PRN COPD (Reported) Calcium Carbonate/Vitamin D3 (Caltrate 600 + D Tablet) 600 MG-800 TABLET 1 TAB PO DAILY SUPPLEMENT (Reported) Cyanocobalamin (Vitamin B-12) (Cyanocobalamin Injection) 1,000 MCG/ML VIAL 1 ML IM Q30D SUPPLEMENT (Reported) Duloxetine HCl (Cymbalta) 60 MG CAPSULE.DR 1 CAP PO DAILY MENTAL HEALTH ( Reported) Folic Acid 1 MG TABLET 1 TAB PO BID SUPPLEMENT (Reported) Furosemide 40 MG TABLET 1 TAB PO DAILY WATER PILL (Reported) Insulin Glargine,Hum.rec.anlog (Lantus Solostar) 100 UNIT/ML (3 ML) INSULN.PEN 30 UNIT SC BID DIABETES (Reported) Lovastatin 40 MG TABLET 1 TAB PO QPM CHOLESTEROL (Reported) with food Methotrexate 2.5 MG TABLET 6 TAB PO QTHURS RA (Reported) Metoprolol Tartrate (Lopressor) 50 MG TABLET 1 TAB PO BID HEART (Reported) Omeprazole 20 MG CAPSULE.DR 1 CAP PO BID GI (Reported) Oxycodone HCl/Acetaminophen (Oxycodone-Acetaminophen 10-325) 10 MG-325 MG TABLET 1 TAB PO 4XDP PRN PAIN (Reported) Prednisone 10 MG TABLET 1 TAB PO DAILY COPD (Reported) Spironolactone (Aldactone) 25 MG TABLET 1 TAB PO DAILY WATER PILL (Reported) Tamsulosin HCl (Flomax) 0.4 MG CAP.ER.24H 1 CAP PO QPM PROSTATE (Reported) Tiotropium Seltzer (Spiriva) 18 MCG CAP.W.DEV 1 CAP INH DAILY COPD (Reported) (Jason TINEO,Umberto Case) Past History Travel History [place]ed [place] past 21 day No Medical History Any Pertinent Medical History? 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 Refer elsewhere in this and other documents for additional details. According to the patient's report he was asymptomatic and functionally unrestricted by his back prior to this injury. He did have functional limitation and restriction because of his other medical conditions. Refer to other inpatient and outpatient medical records for details regarding pre-injury functional status and deficits. History of MRSA: No History of VRE: No History of CDIFF: No Surgical History Surgical History: N (jjjg) Psychosocial History Who do you live with Spouse Services at Home Nursing, Oxygen (4 litres) What is your primary language Qatari Tobacco Use: Never used ETOH Use: denies use Illicit Drug Use: denies illicit drug use Family History Family History, If Any: MOTHER FHx: cancer Hx Contributory? No (Simeon Arechiga) Review of Systems Review of Systems Constitutional: Reports: see HPI, chills. Comments Review of systems: See HPI, All other systems negative. Constitutional, chills no fever HEENT: no sore throat no congestion Cardiovascular: No chest pain , no palpitation Skin: no rashes, no change in skin Respiratory: dyspnea cough no sputum no hemoptysis GI: No nausea no vomiting, no diarrhea : No dysuria Muscle skeletal: No joint pain, no back pain, no neck pain, Neurologic: , no headache Psych: No stress no depression,. Heme/endocrine: No bruising no bleeding Immunology: No lymphadenopathy (Simeon Arechiga) Physical Exam Physical Exam General Appearance: no apparent distress, alert Respiratory: decreased breath sounds, wheezing Comments: Well-developed well-nourished person in no acute distress HEENT: Normal EENT exam; PERRL, EOMI, HEAD is atraumatic. moist mucous membranes. Neck: Supple, normal range of motion Back: Nontender, no CVA tenderness. Full range of motion Cardiovascular: Regular rate and rhythms no murmurs rub Respiratory: Chest nontender.There were no bony deformities, no asymmetry.mod respiratory distress. Patient speaking in 3-4 word sentences. Diminished breath sounds bilaterally wheezing in all lung douglas Abdomen: Soft, nontender nondistended, no appreciable organomegaly. Normal bowel sounds. No rebound/guarding,No ascites. Extremity: No edema, full range of motion of extremities Neuro: Alert oriented x3, motor sensory normal. There were no obvious focal neurologic abnormalities. Skin: No appreciable rash on exposed skin, skin is warm and dry. Psych: Mood and affect is normal, memory and judgment is normal. Core Measures ACS in differential dx? Yes CVA/TIA Diagnosis No Sepsis Present: No Sepsis Focused Exam Completed? No ([place] PRITCHARD,Simeon) Progress Differential Diagnosis: asthma, AMI, bronchitis, costochondritis, CHF, COPD, pulmonary embolism, pneumonia, unstable angina Plan of Care: Orders Procedure Date/time Status CBC WITHOUT DIFFERENTIAL 06/01 06 Active BASIC ELECTROLYTES PLUS BUN&CR 06/01 06 Active Heart Healthy Diet 05/31 D Active Patient Data 05/31 1557 Active STREP PNEUMO URINARY ANTIGEN 05/31 1517 Active LEGIONELLA URINARY ANTIGEN 05/31 1517 Active LOWER RESPIRATORY CULTURE 05/31 1456 Active ARTERIAL BLOOD GAS (GEN) 05/31 1443 Complete Pathway - chart 05/31 1442 Active Code Status 05/31 1442 Active Patient Data 05/31 1431 Active ED Holding Orders 05/31 1429 Active Admit to inpatient 05/31 1429 Active Vital Signs 05/31 1429 Active Code Status 05/31 1429 Complete Intake & Output 05/31 1353 Active TOTAL IRON BINDING CAPACITY 05/31 1319 Complete FERRITIN 05/31 1319 Complete SERUM IRON 05/31 1319 Complete EKG 05/31 1301 Active Saline Lock 05/31 1300 Active Telemetry/Pier Hand 05/31 1300 Active RAPID VIRAL INFLUENZA A 05/31 1300 Complete BLOOD CULTURE 05/31 1300 Active TROPONIN LEVEL 05/31 1300 Complete COMPREHENSIVE METABOLIC PANEL 05/31 1300 Complete CBC WITHOUT DIFFERENTIAL 05/31 1300 Complete B-TYPE NATRIURETIC PEP (BNP) 05/31 1300 Complete TRC EVALUATION (GEN) 05/31 UNK Active House Staff 05/31 UNK Active Lab Add-on Test 05/31 UNK Active VTE Mechanical Prophylaxis 05/31 UNK Active Vital Signs 05/31 UNK Active MISTAKE 05/31 UNK Active Telemetry/Pier Hand 05/31 UNK Active Activity/Ambulation 05/31 UNK Active Current Medications Sig/Lakisha Start time Last Medication Dose Stop Time Status Admin Azithromycin 500 MG DAILY 06/01 899 AC (Zithromax) Sodium Chloride 250 ML (Normal Saline 0.9%) Ceftriaxone Sodium 1,000 MG DAILY 06/01 09 AC (Rocephin) Duloxetine HCl 60 MG DAILY 06/01 09 AC (Cymbalta) Methylprednisolone 40 MG Q8 05/310 AC (Solumedrol) Folic Acid 1 MG BID 05/31 2099 AC (Folic Acid) Nicotine 2 MG Q2 HRS NEEDED PRN 05/31 1530 AC (Nicotine) Nicotine 14 MG DAILY 05/31 151 AC (Nicotine Cq) Calcium/Vitamin D 500 MG DAILY 05/31 1450 AC (Oscal-D 500MG (Osyter Shell)) Laboratory Tests 05/31/17 1500: pH 7.40, pCO2 58 H, pO2 71 L, HCO3 35 H, ABG O2 Sat (Measured) 94.0 L, Carboxyhemoglobin 1.8, O2 Concentration % 3.5L, O2 Delivery Method NC, Phlebotomy Draw Site RIGHT RADIAL 05/31/17 1319: Anion Gap 11, Estimated GFR > 60, BUN/Creatinine Ratio 21.4, Glucose 152 H, Calcium 9.3, Iron 36 L, TIBC 387, Ferritin 227.0, Total Bilirubin 0.7, AST 19, ALT 27, Alkaline Phosphatase 61, Troponin I < 0.01, Lsp-X-Qkuyfvlgcce Pept 204 H, Total Protein 6.9, Albumin 3.8, Globulin 3.1, Albumin/Globulin Ratio 1.2, CBC w Diff MAN DIFF ORDERED, RBC 4.61 L, MCV 92.4, MCH 29.8, MCHC 32.2 L, RDW 15.7 H, MPV 8.1, Gran % 85.5 H, Lymphocytes % 6.3 L, Monocytes % 7.7, Eosinophils % 0.5, Basophils % 0, Absolute Granulocytes 9.8 H, Segmented Neutrophils 83 H, Band Neutrophils 3, Absolute Lymphocytes 0.7 L, Lymphocytes 2 L, Monocytes 9, Absolute Monocytes 0.9 H, Eosinophils 1, Absolute Eosinophils 0.1, Absolute Basophils 0, Myelocytes 2 H, Platelet Estimate ADEQUATE, Normocytic RBCs VERIFIED, Normochromic RBCs VERIFIED, Stomatocytes FEW Microbiology 05/31 1517 URINE ROUT: Legionella Antigen - ORD 05/31 151 URINE ROUT: Streptococcus pneumoniae Antigen (M - ORD 05/31 1456 LOWER RESP: Respiratory Culture - COLB 05/31 1456 LOWER RESP: Gram Stain - COLB 05/31 1429 BLOOD: Blood Culture - RECD 05/31 1332 NASOPHARYN: Influenza Virus A & B Rapid Smear - COMP 05/31 1319 BLOOD: Blood Culture - RECD Labs ordered patient medicated with DuoNeb Solu-Medrol 125 IV. Case discussed with Dr. Gomez agrees with plan I discussed with the patient and his family all of his labs x-ray findings he reports feeling improved after breathing treatment case discussed with Dr. Amor will admit 05/31/2017 3:54:29 PM-Dr. Edouard in room to evaluate patientafter speaking with the patient's who has not been in this emergency room she states that the patient had a witnessed syncopal episode yesterday. The patient does not recall this -after speaking with Dr. Edouard it was decided the patient instead be admitted to telemetry. Diagnostic Imaging: Viewed by Me: Radiology Read. Discussed w/RAD: Radiology Read. Radiology Impression: PATIENT: JANETTE PAEZ PRESENT AGE: 72 PATIENT ACCOUNT NO: [id number] : 43 LOCATION: [facility] ORDERING PHYSICIAN: Simeon PRITCHARD SERVICE DATE: 05/31/17-1299 EXAM TYPE: RAD - XRY- PORTABLE CHEST XRAY EXAMINATION: XR PORTABLE CHEST CLINICAL INFORMATION: Dyspnea COMPARISON: Chest x-rays most recent prior dated 01/10/2017 TECHNIQUE: Portable frontal view of the chest was obtained. FINDINGS: Stable Cardia mediastinal silhouette. Hazy opacities bilateral lower lungs demonstrating slight interval prominence compatible with evolving infiltrate or atelectasis. Left base is not entirely included in the examination. Bony thorax is intact. IMPRESSION: Hazy opacification bilateral lower lungs demonstrating slight interval increase compatible with evolving infiltrate or atelectasis. DICTATED BY: Vimal Pringle MD DATE/TIME DICTATED:05/31/171407 PHYSICS TECHNICIAN:FINA DATE/TIME TRANSCRIBED:05/31/171407 CONFIDENTIAL, DO NOT COPY WITHOUT APPROPRIATE AUTHORIZATION. <Electronically signed in Other Vendor System> SIGNED BY: Vimal Pringle MD 05/31/17 1413 Initial ED EKG: normal QRS complex, normal sinus rhythm, RBBB Prior EKG: unchanged Rhythm Strip: normal sinus rhythm (Simeon Arechiga) Departure Departure Time of Disposition: 1424 Disposition: STILL A PATIENT Condition: Stable Clinical Impression Primary Impression: Pneumonia Secondary Impressions: COPD exacerbation Referrals: Tanmay Zee MD (PCP/Family) Departure Forms: Customer Survey General Discharge Information Admission Note Spoke With: Pipo Amor MD Documentation of Exam: Documentation of any treatments & extenuating circumstances including Concerns Regarding Discharge (functional status, medication knowledge or non-compliance, living conditions, etc.) that warrant an admission rather than observation: [IV antibiotics IV steroids pulmonology consultation labs premature discharge would BE medically harmful. (Simeon Arechiga) PA/RIVET MACHINE OPERATOR Co-Sign Statement Statement: ED Attending supervision documentation- [X] I saw and evaluated the patient. I have also reviewed all the pertinent lab results and diagnostic results. I agree with the findings and the plan of care as documented in the PA's/RIVET MACHINE OPERATOR's documentation. [X] I have reviewed the ED Record and agree with the PA's/RIVET MACHINE OPERATOR's documentation. [] Additions or exceptions (if any) to the PAs/RIVET MACHINE OPERATOR's note and plan are summarized below: [Patient to be admitted for COPD exacerbation, IV steroids, IV antibiotics, respiratory treatments, pulmonary consultation] (Jason TINEO,Umberto Case) Critical Care Note Critical Care Note Critical Care Time: non-applicable (Simeon Arechiga) (Simeon Arechiga)
[2017-05-31 13:29] LABS: ABSOLUTE BASOPHIL COUNT 0 /CUMM (0.0-0.2); ABSOLUTE EOSINOPHIL COUNT 0.1 /CUMM (0.0-0.7); ABSOLUTE GRANULOCYTE CT 9.8 /CUMM (1.4-6.5); ABSOLUTE LYMPH COUNT 0.7 /CUMM (1.2-3.4); ABSOLUTE MONOCYTE COUNT 0.9 /CUMM (0.10-0.60); BASOPHIL % 0 % (0.0-2.0); EOSINOPHIL % 0.5 % (0-5); GRANULOCYTE % 85.5 % (42.2-75.2); HEMATOCRIT 42.6 % (42-52); MEAN CORPUSCULAR HGB 29.8 PG (27.0-31.0); MEAN CORPUSCULAR HGB CONC 32.2 G/DL (33.0-37.0); MEAN CORPUSCULAR VOLUME 92.4 FL (80.0-94.0); MEAN PLATELET VOLUME 8.1 FL (7.4-10.4); PLATELET COUNT 155 /CUMM (130-400); RBC DISTRIBUTION WIDTH 15.7 % (11.5-14.5); RED BLOOD CELL CT 4.61 /CUMM (4.70-6.10); WHITE BLOOD CELL COUNT 11.5 /CUMM (4.8-10.8)
--- NOTE | 2017-05-31 14:13 | RADIOLOGY REPORT ---
EXAMINATION: XR PORTABLE CHEST CLINICAL INFORMATION: Dyspnea COMPARISON: Chest x-rays most recent prior dated 01/10/2017 TECHNIQUE: Portable frontal view of the chest was obtained. FINDINGS: Stable Cardia mediastinal silhouette. Hazy opacities bilateral lower lungs demonstrating slight interval prominence compatible with evolving infiltrate or atelectasis. Left base is not entirely included in the examination. Bony thorax is intact. IMPRESSION: Hazy opacification bilateral lower lungs demonstrating slight interval increase compatible with evolving infiltrate or atelectasis.
--- NOTE | 2017-05-31 14:41 | History & Physical ---
Leidy TINEO,Tayo 05/31/17 1441: General Information and HPI History of Present Illness: Mr. Claudio is a 72-year-old male past medical history of obstructive sleep apnea noncompliant with CPAP, diabetes mellitus, rheumatoid arthritis, GERD, gout, BPH , hypertension, congestive heart failure, and COPD on 3.5 L of oxygen followed by Dr. Blake presents with shortness of breath. Patient noticed a couple days ago that he couldn't catch his breath. This progressed and is worse with exertion. He walks with a walker at baseline. His further noticed chills, night sweats, productive cough, runny nose, sore throat, sinus pressure, occasional dizziness. He denies any sick contacts, chest pain, headache, ear pain, abd pain , nausea, vomiting, diarrhea, rash, or dysuria. The patient is a current smoker, half pack per day, denies alcohol or drug use. He lives with his . 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 Refer elsewhere in this and other documents for additional details. According to the patient's report he was asymptomatic and functionally unrestricted by his back prior to this injury. He did have functional limitation and restriction because of his other medical conditions. Refer to other inpatient and outpatient medical records for details regarding pre-injury functional status and deficits. History of MRSA: No History of VRE: No History of CDIFF: No Surgical History Surgical History: N (jjjg) Past Family/Social History Family History Relations & Conditions if any MOTHER FHx: cancer Psychosocial History Services at Home: Nursing, Oxygen (4 litres) Smoking Status: Current Everyday Smoker ETOH Use: denies use Illicit Drug Use: denies illicit drug use Functional Ability Ambulation: independent, Ambulatory distance was limited by pulmonary condition and not by any spinal symptoms prior to this injury. Pre-injury functional ability is detailed in "Other Medical Hx" section. Review of Systems Review of Systems Constitutional: Reports: see HPI. EENTM: Reports: no symptoms. Cardiovascular: Reports: no symptoms. Respiratory: Reports: see HPI. GI: Reports: no symptoms. Genitourinary: Reports: no symptoms. Musculoskeletal: Reports: no symptoms. Skin: Reports: no symptoms. Neurological/Psychological: Reports: no symptoms. Hematologic/Endocrine: Reports: no symptoms. Immunologic/Allergic: Reports: no symptoms. All Other Systems: Reviewed and Negative Exam & Diagnostic Data Last 24 Hrs of Vital Signs/I&O Vital Signs Date Time Temp Pulse Resp B/P B/P Pulse O2 O2 Flow FiO2 Mean Ox Delivery Rate 05/31 1356 96 Nasal 3.0L Cannula 05/31 1339 94 Nasal 3.5L Cannula 05/31 1253 99.0 80 20 119/71 91 Nasal 3.5L Cannula Intake & Output 05/31 1600 05/31 0800 05/31 0000 Intake Total Output Total Balance Patient 113.398 kg Weight Weight Reported by Patient Measurement Method Physical Exam General Appearance Alert, Oriented X3, Cooperative, No Acute Distress Sepsis Skin Exam (color): Normal for Ethnicity HEENT Atraumatic, PERRLA, EOMI Cardiovascular Regular Rate, Normal S1, Normal S2 Lungs expiratory wheezing Abdomen Normal Bowel Sounds, Soft, No Tenderness Extremities No Edema, Normal Pulses, No Tenderness/Swelling Last 24 Hrs of Labs/Kiel: Laboratory Tests 05/31/17 1500: pH 7.40, pCO2 58 H, pO2 71 L, HCO3 35 H, ABG O2 Sat (Measured) 94.0 L, Carboxyhemoglobin 1.8, O2 Concentration % 3.5L, O2 Delivery Method NC, Phlebotomy Draw Site RIGHT RADIAL 05/31/17 1319: Anion Gap 11, Estimated GFR > 60, BUN/Creatinine Ratio 21.4, Glucose 152 H, Calcium 9.3, Total Bilirubin 0.7, AST 19, ALT 27, Alkaline Phosphatase 61, Troponin I < 0.01, Kse-N-Frfslyxdewz Pept 204 H, Total Protein 6.9, Albumin 3.8 , Globulin 3.1, Albumin/Globulin Ratio 1.2, CBC w Diff MAN DIFF ORDERED, RBC 4.61 L, MCV 92.4, MCH 29.8, MCHC 32.2 L, RDW 15.7 H, MPV 8.1, Gran % 85.5 H, Lymphocytes % 6.3 L, Monocytes % 7.7, Eosinophils % 0.5, Basophils % 0, Absolute Granulocytes 9.8 H, Segmented Neutrophils 83 H, Band Neutrophils 3, Absolute Lymphocytes 0.7 L, Lymphocytes 2 L, Monocytes 9, Absolute Monocytes 0.9 H, Eosinophils 1, Absolute Eosinophils 0.1, Absolute Basophils 0, Myelocytes 2 H, Platelet Estimate ADEQUATE, Normocytic RBCs VERIFIED, Normochromic RBCs VERIFIED, Stomatocytes FEW Microbiology 05/31 1456 LOWER RESP: Respiratory Culture - ORD 05/31 145 LOWER RESP: Gram Stain - ORD 05/31 1429 BLOOD: Blood Culture - RECD 05/31 1332 NASOPHARYN: Influenza Virus A & B Rapid Smear - COMP 05/31 1319 BLOOD: Blood Culture - RECD Assessment/Plan Assessment: Mr. Claudio is a 72-year-old male past medical history of obstructive sleep apnea noncompliant with CPAP, diabetes mellitus, rheumatoid arthritis, GERD, gout, BPH , hypertension, congestive heart failure, and COPD on 3.5 L of oxygen followed by Dr. Blake presents with shortness of breath. On presentation, vital signs were T 99.0, HR 80, RR 20, BP 119/71, saturating 91 % on 3.5 L oxygen. Laboratories worsening skin for white blood cell count 11.5, hemoglobin 13.7, MCV 92.4, 3 bands, chloride 92, scar monoxide 40, glucose 152. ABG shows hypoxemia and hypercarbia. LFTs were normal. Chest x-ray shows bilateral opacifications in the lower lungs. He will be admitted to telemetry and treated for following problems: 1. Community acquired pneumonia 2. COPD exacerbation 3. Syncopal episodes 4. Normocytic anemia 5. Tobacco abuse #Community acquired pneumonia/COPD: Patient presents with chills, shortness of breath, productive cough, and imaging revealing opacifications in the lungs consistent with pneumonia. Flu negative. -TRC nebs -Sputum culture -Ceftriaxone and azithromycin -Oxygen therapy -CPAP at night -Guaifenesin -Methylprednisolone 40 mg every 8H -Urinary antigens #Syncopal episodes: Patient complained of occasional dizziness. Upon speaking with the , itseems like he has been passing out several times over the past several months though he does not realize this. Unclear etiology, potentially arrhythmia versus vasovagal versus other cause. -Telemetry monitoring -TTE -Orthostatic vitals -Cardiology and neurology consults tomorrow morning -CT head #Normocytic anemia: Likely chronic disease. -Iron studies #Tobacco abuse: Patient still smoking despite having advanced COPD. -Smoking cessation counseling -Nicotine patch plus come #Chronic medical problems: -Continue other home medications DVT prophylaxis with enoxaparin Heart healthy diet Full code As Ranked By This Provider Problem List: 1. COPD exacerbation Core Measures/Misc (10/28) Acute Coronary Syndrome ACS Diagnosis: No Congestive Heart Failure Congestive Heart Failure Diagnosis No Cerebrovascular Accident CVA/TIA Diagnosis: No VTE (View Protocol) VTE Risk Factors Age>40 No Mechanical VTE Prophylaxis d/t N/A MechProphylax Ordered No VTE Pharm Prophylaxis d/t NA PharmProphylax ordered Sepsis (View protocol) Sepsis Present: No Daniella Perry MD 05/31/17 1535: Attending MD Review Statement Attending Statement Attending MD Statement: examined this patient, discuss w/resident/PA/IMPLEMENTATION COORDINATOR, agreed w/resident/PA/IMPLEMENTATION COORDINATOR, discussed with family, reviewed EMR data (avail), discussed with nursing, discussed with case mgmt, reviewed images, amended to note Attending Assessment/Plan: 72 y/o M with pmh sig for obstructive sleep apnea noncompliant with CPAP, diabetes mellitus, rheumatoid arthritis, GERD, gout, BPH, hypertension, congestive heart failure, and COPD on 3.5 L of oxygen, ch resp failure followed by Dr. Blake, p/w sob. He has been having cough with sob x 2-3 days. Unable to bring sputum up. + sore throat but denies fevers, chills. Denies abd pain,n/v. Patient's was called and reported that patient had presyncopal episode. She also reports these episodes happening over last six months. He gets up, feels wekan and dizzy then falls and have some shaking movement. Pt does not have much recollection of the events. Denies any hitting of head. No LOC as such. Denies any incontinence of stool or urine. Vital Signs Date Time Temp Pulse Resp B/P B/P Pulse O2 O2 Flow FiO2 Mean Ox Delivery Rate 05/31 1356 96 Nasal 3.0L Cannula 05/31 1339 94 Nasal 3.5L Cannula 05/31 1253 99.0 80 20 119/71 91 Nasal 3.5L Cannula on exam; awake, nad. cv; s1,s2, rrr resp; exp wheeze. abd; soft, nt, bs+ ext; no edema. Laboratory Tests 05/31 05/31 1500 1319 Blood Gas pH (7.35 - 7.45 PH) 7.40 pCO2 (35 - 45 TORR) 58 H pO2 (80 - 100 TORR) 71 L HCO3 (21 - 28 MEQ/L) 35 H ABG O2 Sat (Measured) (>96.0 %) 94.0 L Carboxyhemoglobin (1.5 - 5.0 %) 1.8 O2 Concentration % 3.5L O2 Delivery Method NC Chemistry Sodium (137 - 145 mmol/L) 143 Potassium (3.5 - 5.1 mmol/L) 4.4 Chloride (98 - 107 mmol/L) 92 L Carbon Dioxide (22 - 30 mmol/L) 40 H Anion Gap (5 - 16) 11 BUN (9 - 20 mg/dL) 15 Creatinine (0.7 - 1.2 mg/dL) 0.7 Estimated GFR (>60 ml/min) > 60 BUN/Creatinine Ratio (7 - 25 %) 21.4 Glucose (65 - 99 mg/dL) 152 H Calcium (8.4 - 10.2 mg/dL) 9.3 Iron (49 - 181 ug/dL) Pending TIBC (261 - 462 ug/dL) Pending Ferritin (17.9 - 464 ng/mL) Pending Total Bilirubin (0.2 - 1.3 mg/dL) 0.7 AST (17 - 59 U/L) 19 ALT (21 - 72 U/L) 27 Alkaline Phosphatase (< 127 U/L) 61 Troponin I (<0.11 ng/ml) < 0.01 Tce-A-Vjlknzpnlay Pept (<125 pg/mL) 204 H Total Protein (6.3 - 8.2 g/dL) 6.9 Albumin (3.5 - 5.0 g/dL) 3.8 Globulin (1.9 - 4.2 gm/dL) 3.1 Albumin/Globulin Ratio (1.1 - 2.2 %) 1.2 Hematology CBC w Diff MAN DIFF ORDERED WBC (4.8 - 10.8 /CUMM) 11.5 H RBC (4.70 - 6.10 /CUMM) 4.61 L Hgb (14.0 - 18.0 G/DL) 13.7 L Hct (42 - 52 %) 42.6 MCV (80.0 - 94.0 FL) 92.4 MCH (27.0 - 31.0 PG) 29.8 MCHC (33.0 - 37.0 G/DL) 32.2 L RDW (11.5 - 14.5 %) 15.7 H Plt Count (130 - 400 /CUMM) 155 MPV (7.4 - 10.4 FL) 8.1 Gran % (42.2 - 75.2 %) 85.5 H Lymphocytes % (20.5 - 51.1 %) 6.3 L Monocytes % (1.7 - 9.3 %) 7.7 Eosinophils % (0 - 5 %) 0.5 Basophils % (0.0 - 2.0 %) 0 Absolute Granulocytes (1.4 - 6.5 /CUMM) 9.8 H Segmented Neutrophils (42.2 - 75.2 %) 83 H Band Neutrophils (0.0 - 5.0 %) 3 Absolute Lymphocytes (1.2 - 3.4 /CUMM) 0.7 L Lymphocytes (20.5 - 51.1 %) 2 L Monocytes (1.7 - 9.3 %) 9 Absolute Monocytes (0.10 - 0.60 /CUMM) 0.9 H Eosinophils (0 - 5.0 %) 1 Absolute Eosinophils (0.0 - 0.7 /CUMM) 0.1 Absolute Basophils (0.0 - 0.2 /CUMM) 0 Myelocytes (0 - 0 %) 2 H Platelet Estimate (ADEQUATE) ADEQUATE Normocytic RBCs VERIFIED Normochromic RBCs VERIFIED Stomatocytes FEW Miscellaneous Phlebotomy Draw Site RIGHT RADIAL CXR: IMPRESSION: Hazy opacification bilateral lower lungs demonstrating slight interval increase compatible with evolving infiltrate or atelectasis. EKG>> NSR. RBBB which is old. A/P: 72 y/o M with pmh sig for obstructive sleep apnea noncompliant with CPAP, diabetes mellitus, rheumatoid arthritis, GERD, gout, BPH, hypertension, congestive heart failure, and COPD on 3.5 L of oxygen ch resp failure followed by Dr. Blake, admitted with CAP, AC COPD exacerbation. Also these episodes of presyncope vs seizure. Admit to tele. Tele monitor, ECHO, Cardiology consult. IV steroids, IV abx. Sputum cx, Urine Legionella, strept ag. TRC nebs. CT head, Neuro eval. Check Orthostats. Please confirm and continue home meds. Pharmacologic DVT px. Full code. Jade TINEO,Bijal 05/31/171921: General Information and HPI Allergies/Medications Home Med list Albuterol Sulfate 2.5 MG/3 ML (0.083 %) VIAL.NEB 1 Vial INH/TAPAN 5 TIMES A DAY COPD (Reported) Alendronate Sodium 70 MG TABLET 1 TAB PO QTHURS BONES (Reported) in the morning, at least 30 minutes before the first food, beverage, or medication of the day Allopurinol 300 MG TABLET 1 TAB PO DAILY GOUT (Reported) Budesonide/Formoterol Fumarate (Symbicort 160-4.5 Mcg Inhaler) 160 MCG-4.5 MCG/ ACTUATION HFA.AER.AD 2 PUF INH BID PRN COPD (Reported) Calcium Carbonate/Vitamin D3 (Caltrate 600 + D Tablet) 600 MG-800 TABLET 1 TAB PO DAILY SUPPLEMENT (Reported) Cyanocobalamin (Vitamin B-12) (Cyanocobalamin Injection) 1,000 MCG/ML VIAL 1 ML IM Q30D SUPPLEMENT (Reported) Duloxetine HCl (Cymbalta) 60 MG CAPSULE.DR Lopez CAP PO DAILY MENTAL HEALTH ( Reported) Folic Acid 1 MG TABLET 1 TAB PO BID SUPPLEMENT (Reported) Furosemide 40 MG TABLET 1 TAB PO DAILY WATER PILL (Reported) Insulin Glargine,Hum.rec.anlog (Lantus Solostar) 100 UNIT/ML (3 ML) INSULN.PEN 30 UNIT SC BID DIABETES (Reported) Lovastatin 40 MG TABLET 1 TAB PO QPM CHOLESTEROL (Reported) with food Methotrexate 2.5 MG TABLET 6 TAB PO QTHURS RA (Reported) Metoprolol Tartrate (Lopressor) 50 MG TABLET 1 TAB PO BID HEART (Reported) Omeprazole 20 MG CAPSULE.DR Lopez CAP PO BID GI (Reported) Oxycodone HCl/Acetaminophen (Oxycodone-Acetaminophen 10-325) 10 MG-325 MG TABLET 1 TAB PO 4XDP PRN PAIN (Reported) Prednisone 10 MG TABLET 1 TAB PO DAILY COPD (Reported) Spironolactone (Aldactone) 25 MG TABLET 1 TAB PO DAILY WATER PILL (Reported) Tamsulosin HCl (Flomax) 0.4 MG CAP.ER.24H 1 CAP PO QPM PROSTATE (Reported) Tiotropium [place] (Spiriva) 18 MCG CAP.W.DEV 1 CAP INH DAILY COPD (Reported) Resident Review Statement Resident Statement: examined this patient, discussed with machine learning intern, agreed with machine learning intern, discussed with family, reviewed EMR data (avail), discussed with nursing , discussed with case mgmt, reviewed images, amended to note Other Findings: Patient is a 72 YO M with PMH significant for steroid-dependent COPD on 3.5L oxygen follows Dr. Blake, BOB on CPAP (noncompliant), diabetes, BPH, hypertension, gout presented to the ER with progressive shortness of breath started around 3 days ago. He did have sore throat with whitish phlegm production for the past few days, associated with chills, sinus pressure, occasional dizziness. For the past 6 months patient has been experiencing around 10 syncopal episodes. These episodes were typically started after he wakes up from his bed while going to the restroom associated with mild dizziness , he feels off his balance fall and had shaking. He was unable to recall any of the events after the syncop and he was confused for some time. Plan Problem list 1. COPD exacerbation secondary to pneumonia 2. Multiple syncopal episodes possibly arrhythmogenic versus seizure 3. Hypertension 4. BOB on CPAP 5. BPH Admit to telemetry floor COPD exacerbation Patient is a chronically steroid-dependent COPDer with current active smoking history. He did have worsening of shortness of breath with whitish phlegm production for the past few days associated with sinus tenderness and sore throat. Physical examination is significant for poor air entry and diffuse wheezing. Labs are consistent with leukocytosis. Chest x-ray is consistent with bilateral lower lobe opacities. * IV cefotaxime and azithromycin * Sputum cultures, urine Legionella and strep antigen * IV steroids (received 125 mg methylprednisolone in ER, continue 40 mg every 8) * Follows Dr. Blake * TRC/nebs Multiple syncopal episodes Patient had staring spells, altered mentation and shaking during these episodes. Post syncopal confusion present. This appears more classic with seizure however other conditions like bradycardia and orthostatic hypotension need to be ruled out. * Orthostatic vitals * Telemetry monitoring * Cardiac consult * Echocardiogram * Neuro consult History of from rheumatoid arthritis and gout Continue allopurinol, methotrexate - home dose History of hyperlipidemia Continue Atorvastatin 10 mg daily History of heart failure Continue furosemide 40 mg daily, spironolactone 25mg daily, metoprolol tartarate 25mg daily. Follows . History of diabetes He is on Lantus 30 units twice a day * Accu-Cheks * Levemir 30 units twice a day * Insulin sliding scale History of osteoporosis Continue alendronate every weekly History of BPH Continue 0.4 mg Flomax daily DVT prophylaxis Subcutaneous Lovenox CODE STATUS Full code
--- NOTE | 2017-05-31 15:36 | PN- Student ---
Subjective Subjective: Mr. Claudio is a 72 year old male with a past medical history significant for oxygen dependent COPD, CHF, BOB, HTN, BPH, Insulin dependent T2DM, basal cell carcinoma and Rheumatoid arthritis presented to the ED today with progressively worsening shortness of breath over the past couple of days. He states that it is worse with physical activity. He reports a productive cough describing his sputum as white in color. He adds that his sputum production started along with his SOB a few days ago. In addition he reports having a runny nose and sore throat along with sinus pressure. He is unaware of any exposure to sick contacts. He is treated by Dr. Blake for his COPD. He also reports an unsteady gate at home and loses his balance frequently, he recieves B12 injections. He also reports multiple episodes of dizziness and passing out x10 over the past 6 months. He denies any chest pain, abdominal pain, ear pain, rash or dysuria. Objective Objective: Laboratory Tests 05/31/17 1500: pH 7.40, pCO2 58 H, pO2 71 L, HCO3 35 H, ABG O2 Sat (Measured) 94.0 L, Carboxyhemoglobin 1.8, O2 Concentration % 3.5L, O2 Delivery Method NC, Phlebotomy Draw Site RIGHT RADIAL 05/31/17 1319: Anion Gap 11, Estimated GFR > 60, BUN/Creatinine Ratio 21.4, Glucose 152 H, Calcium 9.3, Iron Pending, TIBC Pending, Ferritin Pending, Total Bilirubin 0.7, AST 19, ALT 27, Alkaline Phosphatase 61, Troponin I < 0.01, Oez-D-Qroxhleqrje Pept 204 H, Total Protein 6.9, Albumin 3.8, Globulin 3.1, Albumin/Globulin Ratio 1.2, CBC w Diff MAN DIFF ORDERED, RBC 4.61 L, MCV 92.4, MCH 29.8, MCHC 32.2 L, RDW 15.7 H, MPV 8.1, Gran % 85.5 H, Lymphocytes % 6.3 L, Monocytes % 7.7, Eosinophils % 0.5, Basophils % 0, Absolute Granulocytes 9.8 H, Segmented Neutrophils 83 H, Band Neutrophils 3, Absolute Lymphocytes 0.7 L, Lymphocytes 2 L, Monocytes 9, Absolute Monocytes 0.9 H, Eosinophils 1, Absolute Eosinophils 0.1, Absolute Basophils 0, Myelocytes 2 H, Platelet Estimate ADEQUATE, Normocytic RBCs VERIFIED, Normochromic RBCs VERIFIED, Stomatocytes FEW Microbiology 05/31 1517 URINE ROUT: Legionella Antigen - ORD 05/31 1517 URINE ROUT: Streptococcus pneumoniae Antigen (M - ORD 05/31 1456 LOWER RESP: Respiratory Culture - ORD 05/31 1456 LOWER RESP: Gram Stain - ORD 05/31 1429 BLOOD: Blood Culture - RECD 05/31 1332 NASOPHARYN: Influenza Virus A & B Rapid Smear - COMP 05/31 1319 BLOOD: Blood Culture - RECD Current Medications Sig/Lakisha Start time Last Medication Dose Stop Time Status Admin Azithromycin 500 MG DAILY 06/01 09 AC (Zithromax) Sodium Chloride 250 ML (Normal Saline 0.9%) Ceftriaxone Sodium 1,000 MG DAILY 06/01 09 AC (Rocephin) Duloxetine HCl 60 MG DAILY 06/01 09 AC (Cymbalta) Methylprednisolone 40 MG Q8 05/31 2200 AC (Solumedrol) Folic Acid 1 MG BID 05/31 2100 AC (Folic Acid) Nicotine 2 MG Q2 HRS NEEDED PRN 05/31 1530 UNVr (Nicotine) Azithromycin 500 MG ONCE ONE 05/31 1515 AC 05/31 (Zithromax) 05/31 1614 1508 Sodium Chloride 250 ML (Normal Saline 0.9%) Nicotine 14 MG DAILY 05/31 1515 UNVr (Nicotine Cq) Calcium/Vitamin D 500 MG DAILY 05/31 1450 AC (Oscal-D 500MG (Osyter Shell)) Vital Signs Date Time Temp Pulse Resp B/P B/P Pulse O2 O2 Flow FiO2 Mean Ox Delivery Rate 05/31 1356 96 Nasal 3.0L Cannula 05/31 1339 94 Nasal 3.5L Cannula 05/31 1253 99.0 80 20 119/71 91 Nasal 3.5L Cannula EKG: sinus rhythym with RBB Physical Exam General apperance: Patient sitting up in bed eating, labored breathing, AOx3 CV: diminished heart sounds, regular rate Pulmonary: Labored breathing, Expiratory wheezes bilaterally Abd: normal bowel sounds, soft, non-tender Ext: no evidence of peripheral edema Assessment/Plan Assessment: Mr. Claudio is a 72 year old male with a past medical history significant for oxygen dependent COPD, CHF, HTN, BOB, Basal cell carcinoma and Rheumatoid arthritis presented to the ED today for worsening shortness of breath. He states that over the past couple of days he noticed he had difficulty breathing that increased in difficulty when performing physical activity. He endorses a cough with white sputum production that started the same time of his increasing shortness of breath. He does use oxygen supplementation at home, and admits to smoking about a half a pack a day. His called and reported that Mr. Claudio has had approximately 10 syncopal episodes over the past 6 months. He does have a history of unsteady gate and recieves vitamin B-12 injection for this. Plan: Problem List: 1. Multiple Syncopal episodes 2. Dyspnea 3. Unsteady gate 4. Normocytic Anemia 5. Chronic medical problems #Multiple Syncopal episodes: Initially patient was thought to be admitted to general medical floor, however Mr. Claudio's called to disclose that the patient has been syncopizing at home without seeking medical attention. She informed the medical team he had approximately 10 syncopal episodes over the past 6 months. Unclear what percipitated these events. Troponin level today in the ED was negative. -Admit to telemetry unit for observation -Orthostatic vitals -CT brain -cardiac consult -consider Echocardiogram #Dyspnea: Patient has long standing COPD that requires oxygen at home and has some dyspnea at baseline. However he reports that his SOB has increased over the past couple of days. He denies sick contacts but has sinus pressure, runny nose, cough with sputum production. His ABG in the ED indicated hypercarbia, hypoxia and increased bicarb indicating Chronic Respiratory Acidosis with compensation, which may be close to baseline. However his white count is elevated with a shift to the left indicating acute infection. He also has hazy opacification of the bilateral lower lungs indicating possible Pneumonia. His rapid flu swab testing in the ED was negative. -Sputum culture: pending -Blood cultures x2: pending -Start IV Abx therapy for bacterial pneumonia -IV steriods for COPD exacerbation -Albuterol PRN #Unsteady gate: Patient reports long standing unsteady gate, stating he frequently loses his balance. He also recieves vit B12 injections for B-12 deficiency. As he has a history of autoimmune disease Pernicious anemia was considered. However although the patient does have anemia if this was related to B-12 deficiency I would expect to see an increased MCV. Atrophic gastritis was also thought of considering his B12 deficiency. He also reports Omeprazole alf therapy, which could have possibly contributed to B-12 deficiency as well. However it is also possible this unsteady gate may be related in some way to some pathology that is related to his syncope. -CT of brain -Admit to telemetry unit -Bed restriction with assitance when needed -PT consult if no underlying pathology #Normocytic Anemia: Patient has a reduced RBC count, and normal MCV. Although he has reported a history of B12 deficiency, it is unlikely it is the cause of his anemia as the MCV is normal. More likely given his medical history is that the patient suffers from Anemia of Chronic Disease. It is also possible that he has iron deficiency anemia. -Continue to monitor CBC -consider iron studies Chronic medical problems -continue home medications as prescribed Full code
[2017-05-31] MEDS ORDERED: ENBREL50 MG/1 ML SC (16:59)
--- NOTE | 2017-05-31 17:05 | CT SCAN REPORT ---
EXAMINATION: CT HEAD WITHOUT CONTRAST CLINICAL INFORMATION: Syncope. COMPARISON: CT head 05/07/2015 TECHNIQUE: Contiguous axial imaging was performed from the skull base to vertex without intravenous administration of contrast. DLP: 674.57 mGy-cm FINDINGS: There is no evidence of acute intracranial hemorrhage or territorial infarction. No abnormal mass effect or midline shift is seen. Gregory to white matter differentiation is well preserved. No extra-axial fluid collections are identified. There is atrophy with prominence of the ventricles and the sulci and hypodensity of the periventricular white matter due to chronic small vessel ischemic disease. There is vascular calcifications of the internal carotid arteries bilaterally.. The osseous structures and soft tissues are normal. The right maxillary sinus is partially opacified by a large retention cyst. 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 The mastoid air cells and middle ear cavities are normally aerated. IMPRESSION: No acute intracranial pathology.
[2017-05-31 19:18] VITALS: BP 134/84
[2017-05-31 22:42] VITALS: BP 130/84
[2017-06-01 07:15] VITALS: BP 130/70
[2017-06-01 08:25] LABS: ABSOLUTE BASOPHIL COUNT 0 /CUMM (0.0-0.2); ABSOLUTE EOSINOPHIL COUNT 0 /CUMM (0.0-0.7); ABSOLUTE GRANULOCYTE CT 4.8 /CUMM (1.4-6.5); ABSOLUTE LYMPH COUNT 0.4 /CUMM (1.2-3.4); ABSOLUTE MONOCYTE COUNT 0.4 /CUMM (0.10-0.60); BASOPHIL % 0.1 % (0.0-2.0); EOSINOPHIL % 0 % (0-5); GRANULOCYTE % 85.9 % (42.2-75.2); HEMATOCRIT 42.5 % (42-52); MEAN CORPUSCULAR HGB CONC 32.5 G/DL (33.0-37.0); MEAN CORPUSCULAR VOLUME 92.1 FL (80.0-94.0); MEAN PLATELET VOLUME 8.6 FL (7.4-10.4); PLATELET COUNT 126 /CUMM (130-400); RBC DISTRIBUTION WIDTH 15.2 % (11.5-14.5); RED BLOOD CELL CT 4.61 /CUMM (4.70-6.10)
--- NOTE | 2017-06-01 08:55 | PN- Housestaff ---
Eugene TINEO,Umberto 06/01/17 0855: Subjective Follow-up For: COPD exacerbation Subjective: Patient seen and examined at bedside. He was resting comfortably. He reports mild shortness of breath however significantly improved from yesterday, he continues to have a mildly productive cough with whitish sputum. He denies any chest pain, palpitations, fever, chills. Review of Systems Constitutional: Denies: chills, fever. Cardiovascular: Denies: chest pain, palpitations. Respiratory: Reports: cough, short of breath, sputum production. Gastrointestinal: Reports: no symptoms. Genitourinary: Reports: no symptoms. Musculoskeletal: Reports: no symptoms. Skin: Reports: no symptoms. Objective Last 24 Hrs of Vital Signs/I&O Vital Signs Date Time Temp Pulse Resp B/P B/P Pulse O2 O2 Flow FiO2 Mean Ox Delivery Rate 06/01 0715 97.7 86 21 130/70 88 05/31 2242 97.5 87 24 130/84 92 05/31 2104 95 134/84 05/31 2103 95 134/84 05/31 1919 93 Nasal 3.5L Cannula 05/31 1918 98.3 95 19 134/84 93 05/31 1905 Nasal 3.5L Cannula 05/31 1726 98.8 100 20 112/63 95 Nasal 3.5L Cannula 05/31 1725 100 112/63 05/31 1623 98.6 96 20 143/92 95 Nasal 3.0L Cannula 05/31 1356 96 Nasal 3.0L Cannula 05/31 1339 94 Nasal 3.5L Cannula 05/31 1253 99.0 80 20 119/71 91 Nasal 3.5L Cannula Intake & Output 06/01 1600 06/01 0800 06/01 0000 Intake Total 100 200 Output Total 300 Balance -200 200 Intake, Oral 100 200 Output, Urine 300 Patient 246 lb Weight Weight Bed scale Measurement Method Physical Exam General Appearance: Alert, Oriented X3, Cooperative, No Acute Distress Skin Temp/Moisture Exam: Warm/Dry Cardiovascular: Regular Rate, Normal S1, Normal S2 Lungs: decreased air movement, scant expiratory wheezing Abdomen: Normal Bowel Sounds, Soft, No Tenderness Neurological: Normal Speech, Normal Tone, Sensation Intact Current Medications: Current Medications Sig/Lakisha Start time Last Medication Dose Route Stop Time Status Admin Acetaminophen 650 MG Q6P PRN 04/20 1930 AC PO Albuterol Sulfate 3 ML BID 06/01 0900 AC INH Albuterol Sulfate 3 ML ONCE ONE 05/31 1315 DC 05/31 INH 05/31 1316 1339 Alendronate Sodium 70 MG QTUES@0700 06/11 0700 AC PO Allopurinol 300 MG DAILY 06/01 0900 AC PO Atorvastatin Calcium 10 MG 1700 06/01 1700 AC PO Azithromycin 500 MG 1500 06/01 1500 AC Sodium Chloride 250 ML IV Azithromycin 500 MG DAILY 06/01 0900 DC Dextrose/Water 250 ML IV Azithromycin 500 MG DAILY 06/01 0900 DC Sodium Chloride 250 ML IV Azithromycin 500 MG ONCE ONE 05/31 1515 DC 05/31 Sodium Chloride 250 ML IV 05/31 1614 1508 Azithromycin 500 MG ONCE ONE 05/31 1430 DC Dextrose/Water 250 ML IV 05/31 1529 Calcium/Vitamin D 500 MG DAILY 05/31 1450 AC 05/31 PO 2055 Ceftriaxone Sodium 1,000 MG 1500 06/01 1500 AC IV Ceftriaxone Sodium 1,000 MG DAILY 06/01 0900 DC IV Ceftriaxone Sodium 0 .STK-MED ONE 05/31 1500 DC .ROUTE Ceftriaxone Sodium 1,000 MG ONCE ONE 05/31 1430 DC 05/31 IV 05/31 1431 1508 Duloxetine HCl 60 MG DAILY 06/01 0900 AC PO Enoxaparin Sodium 40 MG DAILY 06/01 0900 AC SC Folic Acid 1 MG BID 05/31 2100 AC 05/31 PO 205 Furosemide 40 MG DAILY 06/01 0900 AC PO Insulin Aspart 0 TIDAC 06/01 0800 AC SC Insulin Detemir 30 UNITS BID 05/31 2100 AC 05/31 SC 205 Ipratropium [place] 2.5 ML ONCE ONE 05/31 1315 DC 05/31 INH 05/31 1316 1339 Methotrexate 15 MG QSUN 06/09 0900 AC PO Methylprednisolone 40 MG Q8 05/31 2200 AC 06/01 IV 0528 Methylprednisolone 0 .STK-MED ONE 05/31 1329 DC .ROUTE Methylprednisolone 125 MG ONCE ONE 05/31 1315 DC 05/31 IV 05/31 1316 1352 Metoprolol Tartrate 50 MG BID 05/31 2100 AC 05/31 PO 2104 Nicotine 2 MG Q2 HRS NEEDED PRN 05/31 1530 AC PO Nicotine 14 MG DAILY 05/31 1515 AC 05/31 TOP 2056 Omeprazole 20 MG BID 05/31 2099 AC 05/31 PO 2057 Oxycodone HCl 5 MG Q6P PRN 05/31 1929 AC PO Spironolactone 25 MG DAILY 06/01 09 AC PO Tamsulosin HCl 0.4 MG QPM 05/31 2099 AC 05/31 PO 2102 Last 24 Hrs of Lab/Kiel Results Last 24 Hrs of Labs/Mics: Laboratory Tests 06/01/17 0640: Anion Gap 11, Estimated GFR > 60, BUN/Creatinine Ratio 30.0 H, CBC w Diff MAN DIFF ORDERED, RBC 4.61 L, MCV 92.1, MCH 30.0, MCHC 32.5 L, RDW 15.2 H, MPV 8.6, Gran % 85.9 H, Lymphocytes % 7.6 L, Monocytes % 6.4, Eosinophils % 0, Basophils % 0.1, Absolute Granulocytes 4.8, Absolute Lymphocytes 0.4 L, Absolute Monocytes 0.4, Absolute Eosinophils 0, Absolute Basophils 0, Platelet Estimate DECREASED, Basophilic Stippling 1+, Anisocytosis 1+ 05/31/17 1500: pH 7.40, pCO2 58 H, pO2 71 L, HCO3 35 H, ABG O2 Sat (Measured) 94.0 L, Carboxyhemoglobin 1.8, O2 Concentration % 3.5L, O2 Delivery Method NC, Phlebotomy Draw Site RIGHT RADIAL Microbiology 06/01 214 URINE ROUT: Legionella Antigen - COMP 06/01 214 URINE ROUT: Streptococcus pneumoniae Antigen (M - COMP 06/01 1455 LOWER RESP: Respiratory Culture - COLB 06/01 1455 LOWER RESP: Gram Stain - COLB Orders Radiology Findings: CT head There is no evidence of acute intracranial hemorrhage or territorial infarction. No abnormal mass effect or midline shift is seen. Gregory to white matter differentiation is well preserved. No extra-axial fluid collections are identified. There is atrophy with prominence of the ventricles and the sulci and hypodensity of the periventricular white matter due to chronic small vessel ischemic disease. There is vascular calcifications of the internal carotid arteries bilaterally.. The osseous structures and soft tissues are normal. The right maxillary sinus is partially opacified by a large retention cyst. 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 The mastoid air cells and middle ear cavities are normally aerated. IMPRESSION: No acute intracranial pathology. Assessment/Plan Assessment: Mr. Claudio is a 72-year-old male past medical history of obstructive sleep apnea noncompliant with CPAP, diabetes mellitus, rheumatoid arthritis, GERD, gout, BPH , hypertension, congestive heart failure, and COPD on 3.5 L of oxygen followed by Dr. Blake presents with shortness of breath. On presentation, vital signs were T 99.0, HR 80, RR 20, BP 119/71, saturating 91 % on 3.5 L oxygen. Laboratories worsening skin for white blood cell count 11.5, hemoglobin 13.7, MCV 92.4, 3 bands, chloride 92, scar monoxide 40, glucose 152. ABG shows hypoxemia and hypercarbia. LFTs were normal. Chest x-ray shows bilateral opacifications in the lower lungs. #Community acquired pneumonia/COPD: Patient presents with chills, shortness of breath, productive cough, and imaging revealing opacifications in the lungs consistent with pneumonia. Flu negative. -TRC nebs -Sputum culture -Ceftriaxone and azithromycin -Oxygen therapy -CPAP at night -Guaifenesin -Methylprednisolone decreased to 40 mg twice a day -Urinary antigens negative #Syncopal episodes: Patient complained of occasional dizziness. Upon speaking with the , itseems like he has been passing out several times over the past several months though he does not realize this. Unclear etiology, potentially arrhythmia versus vasovagal versus other cause. -Continue on Telemetry monitoring -Follow-up TTE - Negative for orthostatic hypotension -Cardiology and neurology consults placed, appreciate recommendations -CT head was negative for any intracranial pathology -Hold IV Lasix pending echocardiogram, possible overdiuresis. #Normocytic anemia: -Iron studies showed iron level mildly decreased but normal ferritin and TIBC. #Tobacco abuse: Patient still smoking despite having advanced COPD. -Smoking cessation counseling -Nicotine patch plus come #Chronic medical problems: -Continue other home medications DVT prophylaxis with enoxaparin Diabetic diet, 2 g sodium restriction Full code Problem List: 1. COPD exacerbation 2. Uncontrolled diabetes mellitus Pain Ratin Pain Location: none Pain Goal: Remain pain free Pain Plan: pain pathway Tomorrow's Labs & Rationales: cbc, bep Orlando TINEO,Daniella 06/01/17 1431: Attending MD Review Statement Attending Statement Attending MD Statement: examined this patient, discuss w/resident/PA/MILEAGE CLERK, agreed w/resident/PA/MILEAGE CLERK, reviewed EMR data (avail), discussed with nursing, reviewed images, amended to note Attending Assessment/Plan: Patient seen and examined, claims he is feeling better overall in terms of breathing. No acute tele events. Vital Signs Date Time Temp Pulse Resp B/P B/P Pulse O2 O2 Flow FiO2 Mean Ox Delivery Rate 06/01 0918 86 130/70 06/01 0900 91 Nasal 3.5L Cannula 06/01 0800 92 Nasal 3.5L Cannula 06/01 0715 97.7 86 21 130/70 88 05/31 2242 97.5 87 24 130/84 92 05/31 2104 95 134/84 05/31 2103 95 134/84 05/31 1919 93 Nasal 3.5L Cannula 05/31 1918 98.3 95 19 134/84 93 05/31 1905 Nasal 3.5L Cannula 05/31 1726 98.8 100 20 112/63 95 Nasal 3.5L Cannula 05/31 1725 100 112/63 05/31 1623 98.6 96 20 143/92 95 Nasal 3.0L Cannula on exam; aox3, nad. cv; s1,s2, rrr resp; mild scattered wheeze but improved than before. abd: soft, nt, bs+ ext; no edema Laboratory Tests 06/01 05/31 0640 1500 Blood Gas pH (7.35 - 7.45 PH) 7.40 pCO2 (35 - 45 TORR) 58 H pO2 (80 - 100 TORR) 71 L HCO3 (21 - 28 MEQ/L) 35 H ABG O2 Sat (Measured) (>96.0 %) 94.0 L Carboxyhemoglobin (1.5 - 5.0 %) 1.8 O2 Concentration % 3.5L O2 Delivery Method NC Chemistry Sodium (137 - 145 mmol/L) 141 Potassium (3.5 - 5.1 mmol/L) 4.4 Chloride (98 - 107 mmol/L) 92 L Carbon Dioxide (22 - 30 mmol/L) 38 H Anion Gap (5 - 16) 11 BUN (9 - 20 mg/dL) 21 H Creatinine (0.7 - 1.2 mg/dL) 0.7 Estimated GFR (>60 ml/min) > 60 BUN/Creatinine Ratio (7 - 25 %) 30.0 H Hematology CBC w Diff MAN DIFF ORDERED WBC (4.8 - 10.8 /CUMM) 5.5 RBC (4.70 - 6.10 /CUMM) 4.61 L Hgb (14.0 - 18.0 G/DL) 13.8 L Hct (42 - 52 %) 42.5 MCV (80.0 - 94.0 FL) 92.1 MCH (27.0 - 31.0 PG) 30.0 MCHC (33.0 - 37.0 G/DL) 32.5 L RDW (11.5 - 14.5 %) 15.2 H Plt Count (130 - 400 /CUMM) 126 L MPV (7.4 - 10.4 FL) 8.6 Gran % (42.2 - 75.2 %) 85.9 H Lymphocytes % (20.5 - 51.1 %) 7.6 L Monocytes % (1.7 - 9.3 %) 6.4 Eosinophils % (0 - 5 %) 0 Basophils % (0.0 - 2.0 %) 0.1 Absolute Granulocytes (1.4 - 6.5 /CUMM) 4.8 Absolute Lymphocytes (1.2 - 3.4 /CUMM) 0.4 L Absolute Monocytes (0.10 - 0.60 /CUMM) 0.4 Absolute Eosinophils (0.0 - 0.7 /CUMM) 0 Absolute Basophils (0.0 - 0.2 /CUMM) 0 Platelet Estimate (ADEQUATE) DECREASED Basophilic Stippling 1+ Anisocytosis 1+ Miscellaneous Phlebotomy Draw Site RIGHT RADIAL A/P: 72 y/o M with pmh sig for obstructive sleep apnea noncompliant with CPAP, diabetes mellitus, rheumatoid arthritis, GERD, gout, BPH, hypertension, congestive heart failure, and COPD on 3.5 L of oxygen ch resp failure followed by Dr. Blake, admitted with CAP, AC COPD exacerbation and episodes of presyncope vs seizure. + orthostasis. gentle IVFs, abd hold diuretics for now as recommended by cardiology. Appreciate Cradiology input. Decrease steroids to BID. Continue abx, TRCs, f/u cultures. Neuro eval pending. Continue othre current meds. DVT px; Lovenox. PT eval.
[2017-06-01 10:05] LABS: WHITE BLOOD CELL COUNT 5.5 /CUMM (4.8-10.8)
--- NOTE | 2017-06-01 12:48 | Cons- Cardiology ---
General Information and HPI Consulting Request Date of Consult: 06/01/17 Requested By: Daniella Perry MD History of Present Illness: Mr. Claudio is a 72 year old male with history of hypertension, diabetes and obstructive sleep apnea. He also carries a history of COPD. Over the past few days this patient has noted trouble breathing in excess of his baseline. There was associated orthopnea and this symptom was exacerbated by physical activity. At his baseline, he walks with the help of a walker. The patient has also noted chills, diaphoresis, a cough and runny nose. He denies chest discomfort or lightheadedness. Of some concern are reports of syncopal episodes. According to the patient, his has noted multiple episodes of the patient falling to the floor where she observes a rhythmic bilaterall tremor of his hands. The patient denies diaphoresis or post event lethargy associated with these episodes. He also denies any pre-monitory symptoms of lightheadedness or palpitations. The patient reports a cardiac catheterization years ago that was negative for flow limiting disease. Allergies/Medications Allergies: Coded Allergies: Sulfa (Sulfonamide Antibiotics) (Intermediate, RASH/HIVES 11/09/16) Home Med List: Albuterol Sulfate 2.5 MG/3 ML (0.083 %) VIAL.NEB 1 Vial INH/TAPAN 5 TIMES A DAY COPD (Reported) Alendronate Sodium 70 MG TABLET 1 TAB PO QTHURS BONES (Reported) in the morning, at least 30 minutes before the first food, beverage, or medication of the day Allopurinol 300 MG TABLET 1 TAB PO DAILY GOUT (Reported) Budesonide/Formoterol Fumarate (Symbicort 160-4.5 Mcg Inhaler) 160 MCG-4.5 MCG/ ACTUATION HFA.AER.AD 2 PUF INH BID PRN COPD (Reported) Calcium Carbonate/Vitamin D3 (Caltrate 600 + D Tablet) 600 MG-800 TABLET 1 TAB PO DAILY SUPPLEMENT (Reported) Cyanocobalamin (Vitamin B-12) (Cyanocobalamin Injection) 1,000 MCG/ML VIAL 1 ML IM Q30D SUPPLEMENT (Reported) Duloxetine HCl (Cymbalta) 60 MG CAPSULE.DR 1 CAP PO DAILY MENTAL HEALTH ( Reported) Folic Acid 1 MG TABLET 1 TAB PO BID SUPPLEMENT (Reported) Furosemide 40 MG TABLET 1 TAB PO DAILY WATER PILL (Reported) Insulin Glargine,Hum.rec.anlog (Lantus Solostar) 100 UNIT/ML (3 ML) INSULN.PEN 30 UNIT SC BID DIABETES (Reported) Lovastatin 40 MG TABLET 1 TAB PO QPM CHOLESTEROL (Reported) with food Methotrexate 2.5 MG TABLET 6 TAB PO QTHURS RA (Reported) Metoprolol Tartrate (Lopressor) 50 MG TABLET 1 TAB PO BID HEART (Reported) Omeprazole 20 MG CAPSULE.DR 1 CAP PO BID GI (Reported) Oxycodone HCl/Acetaminophen (Oxycodone-Acetaminophen 10-325) 10 MG-325 MG TABLET 1 TAB PO 4XDP PRN PAIN (Reported) Prednisone 10 MG TABLET 1 TAB PO DAILY COPD (Reported) Spironolactone (Aldactone) 25 MG TABLET 1 TAB PO DAILY WATER PILL (Reported) Tamsulosin HCl (Flomax) 0.4 MG CAP.ER.24H 1 CAP PO QPM PROSTATE (Reported) Tiotropium Morris (Spiriva) 18 MCG CAP.W.DEV 1 CAP INH DAILY COPD (Reported) Review of Systems Review of Systems: A review of systems is unremarkable. 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 Refer elsewhere in this and other documents for additional details. According to the patient's report he was asymptomatic and functionally unrestricted by his back prior to this injury. He did have functional limitation and restriction because of his other medical conditions. Refer to other inpatient and outpatient medical records for details regarding pre-injury functional status and deficits. Surgical History Surgical History: none (shilpi) Family History Relations & Conditions If Any: MOTHER FHx: cancer Psychosocial History Where Do You Live? Home Services at Home: Nursing, Oxygen (4 litres) Smoking Status: Current Everyday Smoker ETOH Use: denies use Illicit Drug Use: denies illicit drug use Functional Ability Ambulation: independent, Ambulatory distance was limited by pulmonary condition and not by any spinal symptoms prior to this injury. Pre-injury functional ability is detailed in "Other Medical Hx" section. Exam & Diagnostic Data Vital Signs and I&O Vital Signs Date Time Temp Pulse Resp B/P B/P Pulse O2 O2 Flow FiO2 Mean Ox Delivery Rate 06/01 0918 86 130/70 06/01 0900 91 Nasal 3.5L Cannula 06/01 0800 92 Nasal 3.5L Cannula 06/01 0715 97.7 86 21 130/70 88 05/31 2242 97.5 87 24 130/84 92 05/31 2104 95 134/84 05/31 2103 95 134/84 05/31 1919 93 Nasal 3.5L Cannula 05/31 1918 98.3 95 19 134/84 93 05/31 1905 Nasal 3.5L Cannula 05/31 1726 98.8 100 20 112/63 95 Nasal 3.5L Cannula 05/31 1725 100 112/63 05/31 1623 98.6 96 20 143/92 95 Nasal 3.0L Cannula 05/31 1356 96 Nasal 3.0L Cannula 05/31 1339 94 Nasal 3.5L Cannula 05/31 1253 99.0 80 20 119/71 91 Nasal 3.5L Cannula Intake & Output 06/01 1600 06/01 0800 06/01 0000 05/31 1600 05/31 0800 05/31 0000 Intake Total 100 200 Output Total 300 Balance -200 200 Intake, Oral 100 200 Output, Urine 300 Patient 246 lb 250 lb Weight Weight Bed scale Reported by Patient Measurement Method Physical Exam: General: WD/obese male in NAD; alert and oriented x 3 HEENT: NC/AT, PERRL, EOMI Neck: no JVD, no carotid bruit Heart: RRR w/o murmur Lungs: wheezing bilaterally ABdomen: soft, obese, NT, +ve bowel sounds Extremities: no edema Assessment/Plan Assessment/Plan * This patient with shortness of breath does not have physical findings or laboratory testing such as X-ray or BNP that are suggestive of decompensated CHF. I would be inclined to continue treating him for his COPD. The patient does have a RBBB on his echocardiogram which is consistent with increased pulmonary pressures. * In regard to the patient's history of syncope, I am somewhat suspicous of seizure although hypoglycemia should be considered accompanies by tremulousness. It is nonetheless reasonable to monitor this patient on telemetry for 48 hours. Obtain an echocardiogram to assess his EF since a malignant ventricular dysrhythmia would be more likely in the setting of a low EF. The patient was noted to be orthostatic upon admission. I would hold his diuretics for now. After we assess his EF we may be in a better position to determine if diuretics are needed. He may be overdiuresed due to an inappropriate suspicion of CHF causing his shortness of breath. Consult Acknowledgment - Thank you for your consult request.
[2017-06-01 15:00] VITALS: BP 110/70
[2017-06-01 22:57] VITALS: BP 116/72
[2017-06-02 06:24] VITALS: BP 110/62
[2017-06-02 08:21] LABS: ABSOLUTE BASOPHIL COUNT 0 /CUMM (0.0-0.2); ABSOLUTE EOSINOPHIL COUNT 0 /CUMM (0.0-0.7); ABSOLUTE GRANULOCYTE CT 6.1 /CUMM (1.4-6.5); ABSOLUTE LYMPH COUNT 0.6 /CUMM (1.2-3.4); ABSOLUTE MONOCYTE COUNT 0.5 /CUMM (0.10-0.60); BASOPHIL % 0.1 % (0.0-2.0); EOSINOPHIL % 0 % (0-5); GRANULOCYTE % 83.8 % (42.2-75.2); HEMATOCRIT 40.4 % (42-52); MEAN CORPUSCULAR HGB 30.2 PG (27.0-31.0); MEAN CORPUSCULAR HGB CONC 32.8 G/DL (33.0-37.0); MEAN CORPUSCULAR VOLUME 92.1 FL (80.0-94.0); MEAN PLATELET VOLUME 8.2 FL (7.4-10.4); PLATELET COUNT 125 /CUMM (130-400); RBC DISTRIBUTION WIDTH 15.1 % (11.5-14.5); RED BLOOD CELL CT 4.38 /CUMM (4.70-6.10)
--- NOTE | 2017-06-02 09:01 | PN- Housestaff ---
Jose TINEO,Maxine 06/02/17 0901: Subjective Follow-up For: COPD Subjective: Saw pt at bedside this AM. He was on 2 L o2. Stated he felt well and was eating breakfast. No acute overnight events or complaints. Review of Systems Constitutional: Denies: chills, weakness. EENTM: Reports: no symptoms. Cardiovascular: Denies: chest pain, peripheral edema. Respiratory: Reports: short of breath, sputum production. Denies: cough. Gastrointestinal: Denies: abdominal pain, nausea, vomiting. Genitourinary: Reports: no symptoms. Musculoskeletal: Denies: back pain, gout. Skin: Reports: no symptoms. Objective Last 24 Hrs of Vital Signs/I&O Vital Signs Date Time Temp Pulse Resp B/P B/P Pulse O2 O2 Flow FiO2 Mean Ox Delivery Rate 06/02 0845 91 Nasal 2.0L Cannula 06/02 0800 94 Nasal 2.0L Cannula 06/02 0624 97.8 83 20 110/62 91 Nasal Cannula 06/02 0000 Nasal 2.0L Cannula 06/01 2257 97.3 90 20 116/72 95 Room Air 06/01 2112 87 126/60 06/01 2112 87 126/60 06/01 1608 98 Nasal 3.5L Cannula 06/01 1500 97.1 91 20 110/70 96 Nasal Cannula Intake & Output 06/02 1600 06/02 0800 06/02 0000 Intake Total 300 400 Output Total Balance 300 400 Intake, Oral 300 400 Patient 112.689 kg Weight Weight Bed scale Measurement Method Physical Exam General Appearance: Alert, Oriented X3, Cooperative, No Acute Distress HEENT: Atraumatic, PERRLA, EOMI Neck: Supple Cardiovascular: Normal S1, Normal S2 Lungs: wheezes appreciated on exhalation. slight crackles at base Abdomen: Soft, No Tenderness Extremities: No Edema Current Medications: Current Medications Sig/Lakisha Start time Last Medication Dose Route Stop Time Status Admin Acetaminophen 650 MG Q6P PRN 05/31 1930 AC PO Albuterol Sulfate 3 ML EVERY 4 HRS/AWAKE 06/01 1200 AC 06/02 INH 0852 Alendronate Sodium 70 MG QTUES@0700 05/01 0700 AC PO Allopurinol 300 MG DAILY 06/01 0900 AC 06/02 PO 0905 Atorvastatin Calcium 10 MG 1700 06/01 1700 AC 06/01 PO 1717 Azithromycin 500 MG 1500 06/01 1500 AC 06/01 Sodium Chloride 250 ML IV 1402 Calcium/Vitamin D 500 MG DAILY 05/31 1450 AC 06/02 PO 0905 Ceftriaxone Sodium 1,000 MG 1500 06/01 1500 AC 06/01 IV 1353 Duloxetine HCl 60 MG DAILY 06/01 0900 AC 06/02 PO 0905 Enoxaparin Sodium 40 MG DAILY 06/01 0900 AC 06/02 SC 0912 Folic Acid 1 MG BID 05/31 2100 AC 06/02 PO 0905 Furosemide 40 MG DAILY 06/01 0900 DC 06/01 PO 0918 Guaifenesin/ 10 ML Q6P PRN 06/01 2300 AC 06/01 Dextromethorphan PO 230 Insulin Aspart 0 TIDAC 06/01 0800 AC 06/02 SC 0805 Insulin Detemir 30 UNITS BID 05/31 2100 AC 06/02 SC 0805 Methotrexate 15 MG QSUN 06/09 0900 AC PO Methylprednisolone 40 MG BID 06/01 2100 AC 06/02 IV 0905 Metoprolol Tartrate 50 MG BID 05/31 2100 AC 06/02 PO 0905 Nicotine 2 MG Q2 HRS NEEDED PRN 05/31 1530 AC PO Nicotine 14 MG DAILY 05/31 1515 AC 06/02 TOP 0905 Nystatin 5 ML BID 06/01 2100 AC 06/02 PO 0905 Omeprazole 20 MG BID 05/31 2100 AC 06/02 PO 0905 Oxycodone HCl 5 MG Q6P PRN 05/31 1930 AC PO Spironolactone 25 MG DAILY 06/01 0900 AC 06/02 PO 0905 Tamsulosin HCl 0.4 MG QPM 05/31 2100 AC 06/01 PO 211 Last 24 Hrs of Lab/Kiel Results Last 24 Hrs of Labs/Mics: Laboratory Tests 06/02/17 0642: Anion Gap 8, Estimated GFR > 60, BUN/Creatinine Ratio 28.8 H, CBC w Diff Pending, WBC Pending, RBC Pending, Hgb Pending, Hct Pending, MCV Pending, MCH Pending, MCHC Pending, RDW Pending, Plt Count Pending, MPV Pending, Gran % Pending, Lymphocytes % Pending, Monocytes % Pending, Eosinophils % Pending, Basophils % Pending, Absolute Granulocytes Pending, Absolute Lymphocytes Pending , Absolute Monocytes Pending, Absolute Eosinophils Pending, Absolute Basophils Pending Microbiology 06/01 1529 LOWER RESP: Respiratory Culture - COLB 06/01 152 LOWER RESP: Gram Stain - COLB Assessment/Plan Assessment: ASSESSMENT: Mr. Claudio is a 72-year-old male past medical history of obstructive sleep apnea noncompliant with CPAP, diabetes mellitus, rheumatoid arthritis, GERD, gout, BPH , hypertension, congestive heart failure, and COPD on 3.5 L of oxygen followed by Dr. Blake presents with shortness of breath. PLAN: #Community acquired pneumonia/COPD: Patient presents with chills, shortness of breath, productive cough, and imaging revealing opacifications in the lungs consistent with pneumonia. Flu negative. -TRC nebs -Sputum culture -Ceftriaxone and azithromycin -Oxygen therapy -CPAP at night -Guaifenesin -Methylprednisolone decreased to 40 mg twice a day -Urinary antigens negative #Syncopal episodes: Patient complained of occasional dizziness. Upon speaking with the , itseems like he has been passing out several times over the past several months though he does not realize this. Unclear etiology, potentially arrhythmia versus vasovagal versus other cause. -Continue on Telemetry monitoring -Follow-up TTE - Negative for orthostatic hypotension -Cardiology and neurology consults placed, appreciate recommendations -CT head was negative for any intracranial pathology -Hold IV Lasix pending echocardiogram -Monitor on telemetry #Normocytic anemia: -Iron studies showed iron level mildly decreased but normal ferritin and TIBC. #Tobacco abuse: Patient still smoking despite having advanced COPD. -Smoking cessation counseling -Nicotine patch plus come #Chronic medical problems: -Continue other home medications #Hyperkalemia K 5.8 today. With bicarb elevated to 41. Will con't monitor with repeat BEP at 6 pm. If continues to be elevated will pharmacologically manage. -bep at 4pm DVT prophylaxis with enoxaparin Diabetic diet, 2 g sodium restriction Full code Problem List: 1. Pneumonia 2. COPD with acute exacerbation Pain Ratin Pain Location: none Pain Goal: Remain pain free Pain Plan: none Tomorrow's Labs & Rationales: [email or web address] [place] TINEO,Daniella 06/02/17 1036: Attending MD Review Statement Attending Statement Attending MD Statement: examined this patient, discuss w/resident/PA/CONTRACT ASSISTANT, agreed w/resident/PA/CONTRACT ASSISTANT, reviewed EMR data (avail), discussed with nursing, discussed with case mgmt, reviewed images, amended to note Attending Assessment/Plan: Patient seen and examined, claims that last night he was coughing bad. His oxygen was off so his O2 sats dropped to 70s. Patient does not feel any better compared to yesterday in terms of his breathing. Appreciate cardiology input. Neurology evaluation is still pending. Vital Signs Date Time Temp Pulse Resp B/P B/P Pulse O2 O2 Flow FiO2 Mean Ox Delivery Rate 06/02 0845 91 Nasal 2.0L Cannula 06/02 0800 94 Nasal 2.0L Cannula 06/02 0624 97.8 83 20 110/62 91 Nasal Cannula 06/02 0000 Nasal 2.0L Cannula 06/01 2257 97.3 90 20 116/72 95 Room Air 06/01 2112 87 126/60 06/01 2112 87 126/60 06/01 1608 98 Nasal 3.5L Cannula 06/01 1500 97.1 91 20 110/70 96 Nasal Cannula on exam; 72 y/o M with pmh sig for obstructive sleep apnea noncompliant with CPAP, diabetes mellitus, rheumatoid arthritis, GERD, gout, BPH, hypertension, congestive heart failure, and COPD on 3.5 L of oxygen ch resp failure followed by Dr. Blake, admitted with CAP, AC COPD exacerbation and episodes of presyncope vs seizure. Please repeat orthostatic vital signs. Patient has hyperkalemia, will repeat check BEP around noontime. Distal and 20 over the patient had these seizure episodes what has been described as shaking as he falls. Neurology evaluation is pending. Please order EEG. Patient get echo today which will be followed. Continue steroids at present dose. Continue antibiotics and follow-up on the cultures. Continue TRC nebs. DVT px: Lovenox. Patient should be evaluated by physical therapy.
--- NOTE | 2017-06-02 09:45 | PN- Cardiology ---
Subjective Subjective: * Patient continues to have shortness of breath with orthopnea although it is mildly improved compared with yesterday. * sinus rhythm * potassium is 5.8 Objective Vital Signs and I&Os Vital Signs Date Time Temp Pulse Resp B/P B/P Pulse O2 O2 Flow FiO2 Mean Ox Delivery Rate 06/02 0845 91 Nasal 2.0L Cannula 06/02 0800 94 Nasal 2.0L Cannula 06/02 0624 97.8 83 20 110/62 91 Nasal Cannula 06/02 0000 Nasal 2.0L Cannula 06/01 2257 97.3 90 20 116/72 95 Room Air 06/02 2111 87 126/60 06/01 211 87 126/60 06/01 1608 98 Nasal 3.5L Cannula 06/01 1500 97.1 91 20 110/70 96 Nasal Cannula Intake & Output 06/02 1600 06/02 0800 06/02 0000 06/01 1600 06/01 0800 06/01 0000 Intake Total 300 400 750 100 200 Output Total 300 Balance 300 400 750 -200 200 Intake, IV 300 Intake, Oral 300 400 450 100 200 Output, Urine 300 Patient 248 lb 246 lb Weight Weight Bed scale Bed scale Measurement Method Physical Exam: General: WD/obese male in NAD; alert and oriented x 3 HEENT: NC/AT, PERRL, EOMI Neck: no JVD, no carotid bruit Heart: RRR w/o murmur Lungs: No crackles or wheezing ABdomen: soft, obese, NT, +ve bowel sounds Extremities: no edema Assessment/Plan Assessment/Plan * This patient with shortness of breath does not have physical findings or laboratory testing such as X-ray or BNP that are suggestive of decompensated CHF. I would be inclined to continue treating him for his COPD. The patient does have a RBBB on his echocardiogram which is consistent with increased pulmonary pressures. * In regard to the patient's history of syncope, I am somewhat suspicous of seizure although hypoglycemia should be considered accompanied by tremulousness. It is nonetheless reasonable to monitor this patient on telemetry for 48 hours. Obtain an echocardiogram to assess his EF since a malignant ventricular dysrhythmia would be more likely in the setting of a low EF. The patient was noted to be orthostatic upon admission. I would continue to hold his diuretics for now. After we assess his EF we may be in a better position to determine if diuretics are needed. He may be overdiuresed due to an inappropriate suspicion of CHF causing his shortness of breath. Continue telemetry? Yes
[2017-06-02 10:18] LABS: WHITE BLOOD CELL COUNT 7.3 /CUMM (4.8-10.8)
[2017-06-02 14:02] VITALS: BP 124/70
[2017-06-02 22:39] VITALS: BP 128/78
[2017-06-03 07:12] VITALS: BP 132/70
--- NOTE | 2017-06-03 07:40 | PN- Housestaff ---
Subjective Follow-up For: COPD exacerbation secondary to CAP Tele-Events Since Last Visit: Sinus rhythm with heart rate 7079 Subjective: No overnight events. Patient remained afebrileand examined this morning. He denied any chest pain, short of breath, nausea, vomiting, tach, fever, abdominal pain dysuria. He is using 3 L of oxygen maintaining saturation 95%. Patient's baseline oxygen requirement at 2.5L. Patient wishes to see . Review of Systems Constitutional: Denies: chills, fever, weakness. EENTM: Reports: no symptoms. Cardiovascular: Denies: chest pain, orthopena, palpitations. Respiratory: Denies: cough, short of breath, sputum production. Gastrointestinal: Denies: abdominal pain, constipation, diarrhea, nausea. Genitourinary: Reports: no symptoms. Neurological/Psychological: Reports: no symptoms. Objective Last 24 Hrs of Vital Signs/I&O Vital Signs Date Time Temp Pulse Resp B/P B/P Pulse O2 O2 Flow FiO2 Mean Ox Delivery Rate 06/03 0734 95 Nasal 3.0L Cannula 06/03 0712 97.6 74 20 132/70 20 06/03 0000 Nasal 2.0L Cannula 06/02 2239 97.4 87 20 128/78 93 Nasal 2.5L Cannula 06/02 2138 87 128/70 06/02 2138 87 128/70 06/02 1817 88 Nasal 2.0L Cannula 06/02 1600 Nasal 2.0L Cannula 06/02 1402 97.2 82 20 124/70 95 Nasal Cannula 06/02 0845 91 Nasal 2.0L Cannula Intake & Output 06/03 1600 06/03 0800 06/03 0000 Intake Total 360 1100 Output Total Balance 360 1100 Intake, IV 100 Intake, Oral 360 1000 Patient 249 lb Weight Weight Bed scale Measurement Method Physical Exam General Appearance: Alert, Oriented X3, Cooperative Skin: No Rashes Skin Temp/Moisture Exam: Warm/Dry Sepsis Skin Exam (color): Normal for Ethnicity HEENT: Atraumatic, PERRLA, EOMI Neck: Supple Cardiovascular: Normal S1, Normal S2 Lungs: Clear to Auscultation Abdomen: Soft, No Tenderness Neurological: Normal Speech, Strength at 5/5 X4 Ext, Normal Tone Extremities: No Edema Assessment/Plan Assessment: 72-year-old male past medical history of obstructive sleep apnea noncompliant with CPAP, diabetes mellitus, rheumatoid arthritis, GERD, gout, BPH, hypertension, congestive heart failure, and COPD on 3.5 L of oxygen presented with shortness of breath. Following the patient on telemetry floor for following reasons. COPD exacerbation secondary to CAP: -Continue supplemental oxygen to maintain oxygen saturation above 92%. -We will discontinue IV ceftriaxone and azithromycin today and change it to Augmentin twice a day. Total days of antibiotic, day 4. -Continue Mucinex -TRC nebulization as needed -prednisone 40mg daily. Syncope: -probably due to vasovagal -We will continue monitoring the patient on telemetry floor to rule out any arrhythmias or blocks that can cause syncopic. -Echocardiogram for possible right ventricular enlargement or strain has patient has EKG showing right bundle branch block. -Check orthostatic vitals -Cardiology recommendations History of rheumatoid arthritis: -Continue methotrexate History of hypertension: -Continue home medications History of diabetes and hyperlipidemia: -Continue Accu-Cheks -Continue insulin NovoLog according to sliding scale. -Continue insulin level 30 units s/c. -Continue atorvastatin DVT prophylaxis: -Mechanical and subcutaneous heparin CODE STATUS: Full code Problem List: 1. Pneumonia 2. Syncope 3. COPD exacerbation Pain Ratin Pain Location: none Pain Goal: Remain pain free Pain Plan: pain pathway Tomorrow's Labs & Rationales: bep.
[2017-06-03 08:04] LABS: ABSOLUTE BASOPHIL COUNT 0 /CUMM (0.0-0.2); ABSOLUTE EOSINOPHIL COUNT 0 /CUMM (0.0-0.7); ABSOLUTE GRANULOCYTE CT 5.7 /CUMM (1.4-6.5); ABSOLUTE LYMPH COUNT 0.5 /CUMM (1.2-3.4); ABSOLUTE MONOCYTE COUNT 0.4 /CUMM (0.10-0.60); BASOPHIL % 0 % (0.0-2.0); EOSINOPHIL % 0 % (0-5); GRANULOCYTE % 86.7 % (42.2-75.2); MEAN CORPUSCULAR HGB 29.8 PG (27.0-31.0); MEAN CORPUSCULAR HGB CONC 32.2 G/DL (33.0-37.0); MEAN CORPUSCULAR VOLUME 92.5 FL (80.0-94.0); MEAN PLATELET VOLUME 8.6 FL (7.4-10.4); PLATELET COUNT 118 /CUMM (130-400); RBC DISTRIBUTION WIDTH 15.1 % (11.5-14.5); RED BLOOD CELL CT 4.22 /CUMM (4.70-6.10); WHITE BLOOD CELL COUNT 6.6 /CUMM (4.8-10.8)
--- NOTE | 2017-06-03 10:53 | PN- Att Addend ---
Attending Addendum Attending Brief Note Patient seen and examined. Plan of care discussed with the medical team and the patient. Available lab work and radiology test reports were reviewed. Patient feels well and is difficult breathing has gradually improved. He denies any fever chills nausea vomiting or any chest pains. He remains on oxygen currently at 2 L. Exam: General: Patient awake alert oriented without any distress CVS: S1 plus S2 without any murmur or gallops Chest: Few scattered crepitation without any wheeze. There is no respiratory distress. Abdomen: Soft non-tender, bowel sound present, no guarding or rebound MEDIA OPERATOR: Awake alert oriented without any focal neuro deficit and follows commands appropriately Extremities: No edema; no clubbing or cyanosis noted Assessment * COPD exacerbation * Community-acquired pneumonia * Dizziness and possible syncopal episode * Normocytic anemia * Smoking Plan * Change IV antibiotics to oral antibiotic Augmentin 875 twice a day for 3 more days * Change Solu Medrol to oral prednisone 40 mg daily * Increase ambulation * Taper oxygen * Continue TRC nebs as a treatment * Patient is wishing to see Dr. Blake * Check echocardiogram * Prepare for discharge tomorrow * Check orthostatic BP Current Medications Sig/Lakisha Start time Last Medication Dose Route Stop Time Status Admin Acetaminophen 650 MG Q6P PRN 05/31 1930 AC PO Albuterol Sulfate 3 ML EVERY 4 HRS/AWAKE 06/01 1200 AC 06/03 INH 0730 Alendronate Sodium 70 MG QTUES@0700 06/11 0700 AC PO Allopurinol 300 MG DAILY 06/01 0900 AC 06/03 PO 0903 Amoxicillin/ 875 MG Q12 06/03 1020 AC Clavulanate Potassium PO Atorvastatin Calcium 10 MG 1700 06/01 1700 AC 06/02 PO 1605 Azithromycin 500 MG 1500 06/01 1500 DC 06/02 Sodium Chloride 250 ML IV 1449 Budesonide/ 2 PUF BID PRN 06/02 1900 AC Formoterol Fumarate INH Calcium/Vitamin D 500 MG DAILY 05/31 1450 AC 06/03 PO 0904 Ceftriaxone Sodium 1,000 MG 1500 06/01 1500 DC 06/02 IV 1449 Duloxetine HCl 60 MG DAILY 06/01 0900 AC 06/03 PO 0904 Enoxaparin Sodium 40 MG DAILY 06/01 0900 AC 06/03 SC 0857 Folic Acid 1 MG BID 05/31 2100 AC 06/03 PO 0904 Guaifenesin/ 10 ML Q6P PRN 06/01 2300 AC 06/01 Dextromethorphan PO 230 Insulin Aspart 0 TIDAC 06/01 08 AC 06/03 SC 0857 Insulin Detemir 30 UNITS BID 05/31 2099 AC 06/03 SC 0856 Methotrexate 15 MG QSUN 06/09 0900 AC PO Methylprednisolone 40 MG BID 06/01 2099 AC 06/03 IV 0900 Metoprolol Tartrate 50 MG BID 05/31 2099 AC 06/03 PO 0908 Nicotine 2 MG Q2 HRS NEEDED PRN 05/31 1530 AC PO Nicotine 14 MG DAILY 05/31 1515 AC 06/03 TOP 0902 Nystatin 5 ML BID 06/01 2099 AC 06/02 PO 213 Omeprazole 20 MG BID 05/31 2099 AC 06/03 PO 0904 Oxycodone HCl 5 MG Q6P PRN 05/31 1930 AC PO Spironolactone 25 MG DAILY 06/01 09 AC 06/03 PO 0904 Tamsulosin HCl 0.4 MG QPM 05/31 2099 AC 06/02 PO 213 Laboratory Tests 06/03/17 0625: Anion Gap 8, Estimated GFR > 60, BUN/Creatinine Ratio 35.0 H, CBC w Diff MAN DIFF ORDERED, RBC 4.22 L, MCV 92.5, MCH 29.8, MCHC 32.2 L, RDW 15.1 H, MPV 8.6, Gran % 86.7 H, Lymphocytes % 7.7 L, Monocytes % 5.6, Eosinophils % 0, Basophils % 0, Absolute Granulocytes 5.7, Segmented Neutrophils 84 H, Band Neutrophils 1, Absolute Lymphocytes 0.5 L, Lymphocytes 7 L, Monocytes 6, Absolute Monocytes 0.4, Absolute Eosinophils 0, Absolute Basophils 0, Metamyelocytes 2 H, Platelet Estimate DECREASED, Basophilic Stippling 1+, Anisocytosis 1+ 06/02/17 1600: Sodium Cancelled, Potassium Cancelled, Chloride Cancelled, Carbon Dioxide Cancelled, Anion Gap Cancelled, BUN Cancelled, Creatinine Cancelled, BUN/ Creatinine Ratio Cancelled 06/02/17 1205: Anion Gap 9, Estimated GFR > 60, BUN/Creatinine Ratio 40.0 H 06/02/17 0642: Anion Gap 8, Estimated GFR > 60, BUN/Creatinine Ratio 28.8 H, CBC w Diff NO MAN DIFF REQ, RBC 4.38 L, MCV 92.1, MCH 30.2, MCHC 32.8 L, RDW 15.1 H, MPV 8.2, Gran % 83.8 H, Lymphocytes % 8.9 L, Monocytes % 7.2, Eosinophils % 0, Basophils % 0.1, Absolute Granulocytes 6.1, Absolute Lymphocytes 0.6 L, Absolute Monocytes 0.5, Absolute Eosinophils 0, Absolute Basophils 0 06/01/17 0640: Anion Gap 11, Estimated GFR > 60, BUN/Creatinine Ratio 30.0 H, CBC w Diff MAN DIFF ORDERED, RBC 4.61 L, MCV 92.1, MCH 30.0, MCHC 32.5 L, RDW 15.2 H, MPV 8.6, Gran % 85.9 H, Lymphocytes % 7.6 L, Monocytes % 6.4, Eosinophils % 0, Basophils % 0.1, Absolute Granulocytes 4.8, Absolute Lymphocytes 0.4 L, Absolute Monocytes 0.4, Absolute Eosinophils 0, Absolute Basophils 0, Platelet Estimate DECREASED, Basophilic Stippling 1+, Anisocytosis 1+ 05/31/17 1500: pH 7.40, pCO2 58 H, pO2 71 L, HCO3 35 H, ABG O2 Sat (Measured) 94.0 L, Carboxyhemoglobin 1.8, O2 Concentration % 3.5L, O2 Delivery Method NC, Phlebotomy Draw Site RIGHT RADIAL 05/31/17 1319: Anion Gap 11, Estimated GFR > 60, BUN/Creatinine Ratio 21.4, Glucose 152 H, Calcium 9.3, Iron 36 L, TIBC 387, Ferritin 227.0, Total Bilirubin 0.7, AST 19, ALT 27, Alkaline Phosphatase 61, Troponin I < 0.01, Clr-C-[place] Pept 204 H, Total Protein 6.9, Albumin 3.8, Globulin 3.1, Albumin/Globulin Ratio 1.2, CBC w Diff MAN DIFF ORDERED, RBC 4.61 L, MCV 92.4, MCH 29.8, MCHC 32.2 L, RDW 15.7 H, MPV 8.1, Gran % 85.5 H, Lymphocytes % 6.3 L, Monocytes % 7.7, Eosinophils % 0.5, Basophils % 0, Absolute Granulocytes 9.8 H, Segmented Neutrophils 83 H, Band Neutrophils 3, Absolute Lymphocytes 0.7 L, Lymphocytes 2 L, Monocytes 9, Absolute Monocytes 0.9 H, Eosinophils 1, Absolute Eosinophils 0.1, Absolute Basophils 0, Myelocytes 2 H, Platelet Estimate ADEQUATE, Normocytic RBCs VERIFIED, Normochromic RBCs VERIFIED, Stomatocytes FEW Microbiology 06/01 1529 LOWER RESP: Respiratory Culture - CAN Cancelled: SPECIMEN NOT RECEIVED IN LABORATORY 06/01 1529 LOWER RESP: Gram Stain - CAN Cancelled: SPECIMEN NOT RECEIVED IN LABORATORY 06/01 021 URINE ROUT: Legionella Antigen - COMP 06/01 021 URINE ROUT: Streptococcus pneumoniae Antigen (M - COMP 05/31 1456 LOWER RESP: Respiratory Culture - CAN Cancelled: SPECIMEN NOT RECEIVED IN LABORATORY 05/31 1456 LOWER RESP: Gram Stain - CAN Cancelled: SPECIMEN NOT RECEIVED IN LABORATORY 05/31 1429 BLOOD: Blood Culture - RES 05/31 1332 NASOPHARYN: Influenza Virus A & B Rapid Smear - COMP 05/31 1319 BLOOD: Blood Culture - RES Vital Signs Date Time Temp Pulse Resp B/P B/P Pulse O2 O2 Flow FiO2 Mean Ox Delivery Rate 06/03 0908 93 118/56 06/03 0800 95 Nasal 2.0L Cannula 06/03 0734 95 Nasal 3.0L Cannula 06/03 0712 97.6 74 20 132/70 20 06/03 0000 Nasal 2.0L Cannula 06/029 97.4 87 20 128/78 93 Nasal 2.5L Cannula 06/02 2138 87 128/70 06/02 2138 87 128/70 06/02 1817 88 Nasal 2.0L Cannula 06/02 1600 Nasal 2.0L Cannula 06/02 1402 97.2 82 20 124/70 95 Nasal Cannula Intake & Output 06/03 1600 06/03 0800 06/03 0000 Intake Total 360 1100 Output Total Balance 360 1100 Intake, IV 100 Intake, Oral 360 1000 Patient 249 lb Weight Weight Bed scale Measurement Method
[2017-06-03 14:33] VITALS: BP 128/68
--- NOTE | 2017-06-03 15:52 | ELECTROENCEPHALOGRAM REPORT ---
Electroencephalogram Report Electroencephalogram Results Date of service: 06/03/17 Attending MD: Narda Khan MD Thread Machine Operator: Anthony Dias EEG Number: [id number] Test Utilizes: 10-20 system, 21 lead 18 channel digital recording Pertinent Hx/Physical/Neuro Findings/Clin Diagnosis: loss of consciousness Inpatient Medications: Current Medications Sig/Lakisha Start time Last Medication Dose Route Stop Time Status Admin Acetaminophen 650 MG Q6P PRN 05/31 1930 AC PO Albuterol Sulfate 3 ML EVERY 4 HRS/AWAKE 06/01 1200 AC 06/03 INH 1121 Alendronate Sodium 70 MG QTUES@0700 06/11 0700 AC PO Allopurinol 300 MG DAILY 06/01 0900 AC 06/03 PO 0903 Amoxicillin/ 875 MG Q12 06/03 1020 AC 06/03 Clavulanate Potassium PO 1209 Atorvastatin Calcium 10 MG 1700 06/01 1700 AC 06/02 PO 1605 Azithromycin 500 MG 1500 06/01 1500 DC 06/02 Sodium Chloride 250 ML IV 1449 Budesonide/ 2 PUF BID PRN 06/02 1900 AC Formoterol Fumarate INH Calcium/Vitamin D 500 MG DAILY 05/31 1450 AC 06/03 PO 0904 Ceftriaxone Sodium 1,000 MG 1500 06/01 1500 DC 06/02 IV 1449 Duloxetine HCl 60 MG DAILY 06/01 0900 AC 06/03 PO 0904 Enoxaparin Sodium 40 MG DAILY 06/01 0900 AC 06/03 SC 0857 Folic Acid 1 MG BID 05/31 2100 AC 06/03 PO 0904 Guaifenesin/ 10 ML Q6P PRN 06/01 2300 AC 06/01 Dextromethorphan PO 2309 Insulin Aspart 0 TIDAC 06/01 0800 AC 06/03 SC 1406 Insulin Detemir 30 UNITS BID 05/31 2100 AC 06/03 SC 0856 Methotrexate 15 MG QSUN 06/09 0900 AC PO Methylprednisolone 40 MG BID 06/01 2100 DC 06/03 IV 0900 Metoprolol Tartrate 50 MG BID 05/31 2100 AC 06/03 PO 0908 Nicotine 2 MG Q2 HRS NEEDED PRN 05/31 1530 AC PO Nicotine 14 MG DAILY 05/31 1515 AC 06/03 TOP 0902 Nystatin 5 ML BID 06/01 2100 AC 06/02 PO 2138 Omeprazole 20 MG BID 05/31 2100 AC 04/23 PO 0904 Oxycodone HCl 5 MG Q6P PRN 05/31 193 AC PO Prednisone 40 MG DAILY 06/04 899 AC PO Spironolactone 25 MG DAILY 06/01 09 AC 06/03 PO 09 Tamsulosin HCl 0.4 MG QPM 05/31 2100 AC 06/02 PO 213 Interpretation: Background is 7 cps activity Intermittent 4-5 cps actobity frontally No focal or epileptiform activity Photic stim: no abnormalities Impression: Abnormal EEG due to mild background slowing indicative of diffuse cerebral dysfunction
--- NOTE | 2017-06-03 16:39 | Cons- Pulmonary ---
General Information and HPI Consulting Request Date of Consult: 06/03/17 Requested By: medical team/patient Reason for Consult: COPD exacerbation Source of Information: patient Exam Limitations: no limitations History of Present Illness: 72 year old man. Requsted by patient and medical team to evaluate patient. Known to me from the office. Has significant COPD, RA, back pain, tobacco dependence. On prednisone/methotrexate/enbrel preiodically for RA. Symbicort, spiriva, 3.5L o2 for COPD. Admitted with dyspnea, wheezing for a few days. Dizziness and ?syncope. No n/v/d/c. No CP. Yellowish phlegm. CXR haxy bilateral lower lung opacification. Afebrile without leukocytosis at this time. Was 11.5 on admission. Allergies/Medications Allergies: Coded Allergies: Sulfa (Sulfonamide Antibiotics) (Intermediate, RASH/HIVES 11/09/16) Home Med List: Albuterol Sulfate 2.5 MG/3 ML (0.083 %) VIAL.NEB 1 Vial INH/TAPAN 5 TIMES A DAY COPD (Reported) Alendronate Sodium 70 MG TABLET 1 TAB PO QTHURS BONES (Reported) in the morning, at least 30 minutes before the first food, beverage, or medication of the day Allopurinol 300 MG TABLET 1 TAB PO DAILY GOUT (Reported) Budesonide/Formoterol Fumarate (Symbicort 160-4.5 Mcg Inhaler) 160 MCG-4.5 MCG/ ACTUATION HFA.AER.AD 2 PUF INH BID PRN COPD (Reported) Calcium Carbonate/Vitamin D3 (Caltrate 600 + D Tablet) 600 MG-800 TABLET 1 TAB PO DAILY SUPPLEMENT (Reported) Cyanocobalamin (Vitamin B-12) (Cyanocobalamin Injection) 1,000 MCG/ML VIAL 1 ML IM Q30D SUPPLEMENT (Reported) Duloxetine HCl (Cymbalta) 60 MG CAPSULE.DR 1 CAP PO DAILY MENTAL HEALTH ( Reported) Folic Acid 1 MG TABLET 1 TAB PO BID SUPPLEMENT (Reported) Furosemide 40 MG TABLET 1 TAB PO DAILY WATER PILL (Reported) Insulin Glargine,Hum.rec.anlog (Lantus Solostar) 100 UNIT/ML (3 ML) INSULN.PEN 30 UNIT SC BID DIABETES (Reported) Lovastatin 40 MG TABLET 1 TAB PO QPM CHOLESTEROL (Reported) with food Methotrexate 2.5 MG TABLET 6 TAB PO QTHURS RA (Reported) Metoprolol Tartrate (Lopressor) 50 MG TABLET 1 TAB PO BID HEART (Reported) Omeprazole 20 MG CAPSULE.DR 1 CAP PO BID GI (Reported) Oxycodone HCl/Acetaminophen (Oxycodone-Acetaminophen 10-325) 10 MG-325 MG TABLET 1 TAB PO 4XDP PRN PAIN (Reported) Prednisone 10 MG TABLET 1 TAB PO DAILY COPD (Reported) Spironolactone (Aldactone) 25 MG TABLET 1 TAB PO DAILY WATER PILL (Reported) Tamsulosin HCl (Flomax) 0.4 MG CAP.ER.24H 1 CAP PO QPM PROSTATE (Reported) Tiotropium [place] (Spiriva) 18 MCG CAP.W.DEV 1 CAP INH DAILY COPD (Reported) Current Medications: Current Medications Sig/Lakisha Start time Last Medication Dose Route Stop Time Status Admin Acetaminophen 650 MG Q6P PRN 05/31 1930 AC PO Albuterol Sulfate 3 ML EVERY 4 HRS/AWAKE 06/01 1200 AC 06/03 INH 1618 Alendronate Sodium 70 MG QTUES@0700 06/11 0700 AC PO Allopurinol 300 MG DAILY 06/01 0900 AC 06/03 PO 0903 Amoxicillin/ 875 MG Q12 06/03 1020 AC 06/03 Clavulanate Potassium PO 1209 Atorvastatin Calcium 10 MG 1700 06/01 1700 AC 06/02 PO 1605 Azithromycin 500 MG 1500 06/01 1500 DC 06/02 Sodium Chloride 250 ML IV 1449 Budesonide/ 2 PUF BID PRN 06/02 1900 AC Formoterol Fumarate INH Calcium/Vitamin D 500 MG DAILY 05/31 1450 AC 06/03 PO 0904 Ceftriaxone Sodium 1,000 MG 1500 06/01 1500 DC 06/02 IV 1449 Duloxetine HCl 60 MG DAILY 06/01 0900 AC 06/03 PO 0904 Enoxaparin Sodium 40 MG DAILY 06/01 0900 AC 06/03 SC 0857 Folic Acid 1 MG BID 05/31 2100 AC 06/03 PO 0904 Guaifenesin/ 10 ML Q6P PRN 06/01 2300 AC 06/01 Dextromethorphan PO 2309 Insulin Aspart 0 TIDAC 06/01 0800 AC 06/03 SC 1406 Insulin Detemir 30 UNITS BID 05/31 2100 AC 06/03 SC 0856 Methotrexate 15 MG QSUN 06/09 0900 AC PO Methylprednisolone 40 MG BID 06/01 2100 DC 06/03 IV 0900 Metoprolol Tartrate 50 MG BID 05/31 2100 AC 06/03 PO 0908 Nicotine 2 MG Q2 HRS NEEDED PRN 05/31 1530 AC PO Nicotine 14 MG DAILY 05/31 1515 AC 06/03 TOP 0902 Nystatin 5 ML BID 06/01 2100 AC 06/02 PO 2138 Omeprazole 20 MG BID 05/31 2100 AC 06/03 PO 0904 Oxycodone HCl 5 MG Q6P PRN 05/31 1930 AC PO Prednisone 40 MG DAILY 06/04 0900 AC PO Spironolactone 25 MG DAILY 06/01 0900 AC 06/03 PO 0904 Tamsulosin HCl 0.4 MG QPM 05/31 2100 AC 06/02 PO 213 Review of Systems Comments 18 point review of systems was performed and reviewed. Please see pertinent positives and pertinent negatives in the HPI. Otherwise ROS is negative. 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 Refer elsewhere in this and other documents for additional details. According to the patient's report he was asymptomatic and functionally unrestricted by his back prior to this injury. He did have functional limitation and restriction because of his other medical conditions. Refer to other inpatient and outpatient medical records for details regarding pre-injury functional status and deficits. Surgical History Surgical History: none (shilpi) Family History Relations & Conditions If Any: MOTHER FHx: cancer Psychosocial History Where Do You Live? Home Services at Home: Nursing, Oxygen (4 litres) Smoking Status: Current Everyday Smoker ETOH Use: denies use Illicit Drug Use: denies illicit drug use Functional Ability Ambulation: independent, Ambulatory distance was limited by pulmonary condition and not by any spinal symptoms prior to this injury. Pre-injury functional ability is detailed in "Other Medical Hx" section. Exam & Diagnostic Data Last 24 Hrs of Vital Signs/I&O Vital Signs Date Time Temp Pulse Resp B/P B/P Pulse O2 O2 Flow FiO2 Mean Ox Delivery Rate 06/04 0817 84 20 150/84 06/04 0800 95 Nasal 3.0L Cannula 06/04 0753 95 Nasal 3.0L Cannula 06/04 0656 97.9 84 20 150/84 97 Nasal 3.0L Cannula 06/04 0655 97.9 20 20 150/84 97 Nasal 3.0L Cannula 06/03 2238 97.4 98 22 130/84 96 06/03 2235 Nasal 3.0L Cannula 06/04 2011 88 130/68 06/04 2011 88 130/68 06/03 1850 91 120/60 06/03 1618 98 Nasal 3.5L Cannula 06/03 1433 98.2 74 20 128/68 90 Nasal 3.0L Cannula Intake & Output 06/04 1600 06/04 0800 06/04 0000 Intake Total 300 250 Output Total Balance 300 250 Intake, Oral 300 250 Patient 252 lb Weight Physical Exam Other Physical Findings: gen awake and alert heent nasal cannula cvs s1, s2 lungs b/l wheezing abd soft ext no edema Last 48 Hrs of Labs/[place]: Laboratory Tests 06/04/17 0653: Anion Gap 6, Estimated GFR > 60, BUN/Creatinine Ratio 38.0 H, Cortisol AM Sample 6.1 06/03/17 0625: Anion Gap 8, Estimated GFR > 60, BUN/Creatinine Ratio 35.0 H, TSH 0.135 L, Free T4 1.08, CBC w Diff MAN DIFF ORDERED, RBC 4.22 L, MCV 92.5, MCH 29.8, MCHC 32.2 L, RDW 15.1 H, MPV 8.6, Gran % 86.7 H, Lymphocytes % 7.7 L, Monocytes % 5.6, Eosinophils % 0, Basophils % 0, Absolute Granulocytes 5.7, Segmented Neutrophils 84 H, Band Neutrophils 1, Absolute Lymphocytes 0.5 L, Lymphocytes 7 L, Monocytes 6, Absolute Monocytes 0.4, Absolute Eosinophils 0, Absolute Basophils 0, Metamyelocytes 2 H, Platelet Estimate DECREASED, Basophilic Stippling 1+, Anisocytosis 1+ 06/02/17 1600: Sodium Cancelled, Potassium Cancelled, Chloride Cancelled, Carbon Dioxide Cancelled, Anion Gap Cancelled, BUN Cancelled, Creatinine Cancelled, BUN/ Creatinine Ratio Cancelled Assessment/Plan Impression/Plan: Impression 72 year old man * exacerbation of COPD in setting of RA * CAP * dizzines/?syncope * tobacco dependence Plan -smoking cessation/counseled -begin solumedrol 40mg iv q12h -complete course of Augmentin as ordered -f/u outpatien with cxr within 1 month -spo2 goal >92% DVT prophylaxis at all times Consult Acknowledgment - Thank you for your consult request.
--- NOTE | 2017-06-03 16:54 | Cons- Neurology ---
General Information and HPI Consulting Request Date of Consult: 06/03/17 Requested By: Narda Khan MD History of Present Illness: 72-year-old male has repetitive falls Patient states that these events have occurred over the past few months The always happen when he is walking and never when sitting or lying Usually walks for short distance and then he feels that he lowers himself to the ground and is on his knees Believes that the episodes are relatively brief He has little recall of going down He believes that he lowers himself slowly His tells him that he seems to go down more quickly and that his hands start shaking There has been no significant trauma There is no head injury He does not note any unusual sensation prior to the event and no unusual feeling when it is over He may stay in a crouched position for a brief period of time before standing up Allergies/Medications Allergies: Coded Allergies: Sulfa (Sulfonamide Antibiotics) (Intermediate, RASH/HIVES 11/09/16) Home Med List: Albuterol Sulfate 2.5 MG/3 ML (0.083 %) VIAL.NEB 1 Vial INH/TAPAN 5 TIMES A DAY COPD (Reported) Alendronate Sodium 70 MG TABLET 1 TAB PO QTHURS BONES (Reported) in the morning, at least 30 minutes before the first food, beverage, or medication of the day Allopurinol 300 MG TABLET 1 TAB PO DAILY GOUT (Reported) Budesonide/Formoterol Fumarate (Symbicort 160-4.5 Mcg Inhaler) 160 MCG-4.5 MCG/ ACTUATION HFA.AER.AD 2 PUF INH BID PRN COPD (Reported) Calcium Carbonate/Vitamin D3 (Caltrate 600 + D Tablet) 600 MG-800 TABLET 1 TAB PO DAILY SUPPLEMENT (Reported) Cyanocobalamin (Vitamin B-12) (Cyanocobalamin Injection) 1,000 MCG/ML VIAL 1 ML IM Q30D SUPPLEMENT (Reported) Duloxetine HCl (Cymbalta) 60 MG CAPSULE.DR 1 CAP PO DAILY MENTAL HEALTH ( Reported) Folic Acid 1 MG TABLET 1 TAB PO BID SUPPLEMENT (Reported) Furosemide 40 MG TABLET 1 TAB PO DAILY WATER PILL (Reported) Insulin Glargine,Hum.rec.anlog (Lantus Solostar) 100 UNIT/ML (3 ML) INSULN.PEN 30 UNIT SC BID DIABETES (Reported) Lovastatin 40 MG TABLET 1 TAB PO QPM CHOLESTEROL (Reported) with food Methotrexate 2.5 MG TABLET 6 TAB PO QTHURS RA (Reported) Metoprolol Tartrate (Lopressor) 50 MG TABLET 1 TAB PO BID HEART (Reported) Omeprazole 20 MG CAPSULE.DR 1 CAP PO BID GI (Reported) Oxycodone HCl/Acetaminophen (Oxycodone-Acetaminophen 10-325) 10 MG-325 MG TABLET 1 TAB PO 4XDP PRN PAIN (Reported) Prednisone 10 MG TABLET 1 TAB PO DAILY COPD (Reported) Spironolactone (Aldactone) 25 MG TABLET 1 TAB PO DAILY WATER PILL (Reported) Tamsulosin HCl (Flomax) 0.4 MG CAP.ER.24H 1 CAP PO QPM PROSTATE (Reported) Tiotropium [place] (Spiriva) 18 MCG CAP.W.DEV 1 CAP INH DAILY COPD (Reported) Current Medications: Current Medications Sig/Lakisha Start time Last Medication Dose Route Stop Time Status Admin Acetaminophen 650 MG Q6P PRN 05/31 1930 AC PO Albuterol Sulfate 3 ML EVERY 4 HRS/AWAKE 06/01 1200 AC 06/03 INH 1618 Alendronate Sodium 70 MG QTUES@0700 06/11 0700 AC PO Allopurinol 300 MG DAILY 06/01 0900 AC 06/03 PO 0903 Amoxicillin/ 875 MG Q12 06/03 1020 AC 06/03 Clavulanate Potassium PO 1209 Atorvastatin Calcium 10 MG 1700 06/01 1700 AC 06/02 PO 1605 Azithromycin 500 MG 1500 06/01 1500 DC 06/02 Sodium Chloride 250 ML IV 1449 Budesonide/ 2 PUF BID PRN 06/02 1900 AC Formoterol Fumarate INH Calcium/Vitamin D 500 MG DAILY 05/31 1450 AC 06/03 PO 0904 Ceftriaxone Sodium 1,000 MG 1500 06/01 1500 DC 06/02 IV 1449 Duloxetine HCl 60 MG DAILY 06/01 0900 AC 06/03 PO 0904 Enoxaparin Sodium 40 MG DAILY 06/01 0900 AC 06/03 SC 0857 Folic Acid 1 MG BID 05/31 2100 AC 06/03 PO 0904 Guaifenesin/ 10 ML Q6P PRN 06/01 2300 AC 06/01 Dextromethorphan PO 2309 Insulin Aspart 0 TIDAC 06/01 0800 AC 06/03 SC 1406 Insulin Detemir 30 UNITS BID 05/31 2099 AC 06/03 SC 0856 Methotrexate 15 MG QSUN 06/09 0900 AC PO Methylprednisolone 40 MG BID 06/01 2100 DC 06/03 IV 0900 Metoprolol Tartrate 50 MG BID 05/31 2099 AC 06/03 PO 0908 Nicotine 2 MG Q2 HRS NEEDED PRN 05/31 1530 AC PO Nicotine 14 MG DAILY 05/31 1515 AC 06/03 TOP 0902 Nystatin 5 ML BID 06/01 2099 AC 06/02 PO 213 Omeprazole 20 MG BID 05/31 2099 AC 06/03 PO 09 Oxycodone HCl 5 MG Q6P PRN 05/31 1930 AC PO Prednisone 40 MG DAILY 06/04 0900 AC PO Spironolactone 25 MG DAILY 06/01 0900 AC 06/03 PO 09 Tamsulosin HCl 0.4 MG QPM 05/31 2099 AC 06/02 PO 2137 Review of Systems Review of Systems: No headache Poor vision Weight stable No difficulty with speech or swallowing No chest pains has shortness of breath No nausea or vomiting No incontinence No significant injuries No significant swelling in extremities No focal weakness or paresthesia No recent fevers Past History [place] past [place] No Medical History Blood Transfusion Hx: No Neurological: NONE EENT: NONE Cardiovascular: CHF, hypertension Respiratory: COPD, obstructive sleep apnea, with ongoing tobacco use disorder 02 DEPENDANT Gastrointestinal: NONE Hepatic: NONE Renal: benign prost hyperplasia Musculoskeletal: rheumatoid arthritis Psychiatric: NONE Endocrine: INSULIN DEPENDENT DIABETIC TYPE II Blood Disorders: NONE 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 Refer elsewhere in this and other documents for additional details. According to the patient's report he was asymptomatic and functionally unrestricted by his back prior to this injury. He did have functional limitation and restriction because of his other medical conditions. Refer to other inpatient and outpatient medical records for details regarding pre-injury functional status and deficits. Surgical History Surgical History: none (shilpi) Family History Relations & Conditions If Any: MOTHER FHx: cancer Psychosocial History Where Do You Live? Home Services at Home: Nursing, Oxygen (4 litres) Smoking Status: Current Everyday Smoker ETOH Use: denies use Illicit Drug Use: denies illicit drug use Functional Ability Ambulation: independent, Ambulatory distance was limited by pulmonary condition and not by any spinal symptoms prior to this injury. Pre-injury functional ability is detailed in "Other Medical Hx" section. Exam & Diagnostic Data Vital Signs and I&O Vital Signs Date Time Temp Pulse Resp B/P B/P Pulse O2 O2 Flow FiO2 Mean Ox Delivery Rate 06/03 1618 98 Nasal 3.5L Cannula 06/03 1433 98.2 74 20 128/68 90 Nasal 3.0L Cannula 06/03 1121 94 Nasal 3.0L Cannula 06/03 0908 93 118/56 06/03 0800 95 Nasal 2.0L Cannula 06/03 0734 95 Nasal 3.0L Cannula 06/03 0712 97.6 74 20 132/70 20 06/03 0000 Nasal 2.0L Cannula 06/02 2239 97.4 87 20 128/78 93 Nasal 2.5L Cannula 06/02 2138 87 128/70 06/02 2138 87 128/70 06/02 1817 88 Nasal 2.0L Cannula Intake & Output 06/03 1600 06/03 0800 06/03 0000 Intake Total 097 191 8287 Output Total Balance 666 229 8581 Intake, IV 100 Intake, Oral 511 279 4065 Patient 249 lb Weight Weight Bed scale Measurement Method Physical Exam: Alert and oriented Language functions fund of knowledge attention appear intact Mild dyspnea Heart sounds normal no carotid bruits distal pulses cannot be palpated Extraocular movements full, pupils reactive, visual douglas intact, fundi could not adequately be visualized, no facial weakness or facial sensory loss, palate tongue and shoulders intact, hearing grossly intact Normal tone and strength upper and lower extremities No sensory loss to light touch upper and lower extremities Deep tendon reflexes hypoactive throughout Coordinative functions upper extremities intact Walks with a rolling walker; no ataxia Last 48 Hours of Lab Results: Laboratory Tests 06/03 06/02 06/02 0625 1600 1205 Chemistry Sodium (137 - 145 mmol/L) 143 Cancelled 138 Potassium (3.5 - 5.1 mmol/L) 4.6 Cancelled 4.5 Chloride (98 - 107 mmol/L) 94 L Cancelled 94 L Carbon Dioxide (22 - 30 mmol/L) 41 H Cancelled 35 H Anion Gap (5 - 16) 8 Cancelled 9 BUN (9 - 20 mg/dL) 21 H Cancelled 24 H Creatinine (0.7 - 1.2 mg/dL) 0.6 L Cancelled 0.6 L Estimated GFR (>60 ml/min) > 60 > 60 BUN/Creatinine Ratio (7 - 25 %) 35.0 H Cancelled 40.0 H Hematology CBC w Diff MAN DIFF ORDERED WBC (4.8 - 10.8 /CUMM) 6.6 RBC (4.70 - 6.10 /CUMM) 4.22 L Hgb (14.0 - 18.0 G/DL) 12.6 L Hct (42 - 52 %) 39.0 L MCV (80.0 - 94.0 FL) 92.5 MCH (27.0 - 31.0 PG) 29.8 MCHC (33.0 - 37.0 G/DL) 32.2 L RDW (11.5 - 14.5 %) 15.1 H Plt Count (130 - 400 /CUMM) 118 L MPV (7.4 - 10.4 FL) 8.6 Gran % (42.2 - 75.2 %) 86.7 H Lymphocytes % (20.5 - 51.1 %) 7.7 L Monocytes % (1.7 - 9.3 %) 5.6 Eosinophils % (0 - 5 %) 0 Basophils % (0.0 - 2.0 %) 0 Absolute Granulocytes (1.4 - 6.5 /CUMM) 5.7 Segmented Neutrophils (42.2 - 75.2 %) 84 H Band Neutrophils (0.0 - 5.0 %) 1 Absolute Lymphocytes (1.2 - 3.4 /CUMM) 0.5 L Lymphocytes (20.5 - 51.1 %) 7 L Monocytes (1.7 - 9.3 %) 6 Absolute Monocytes (0.10 - 0.60 /CUMM) 0.4 Absolute Eosinophils (0.0 - 0.7 /CUMM) 0 Absolute Basophils (0.0 - 0.2 /CUMM) 0 Metamyelocytes (0.0 - 1.0 %) 2 H Platelet Estimate (ADEQUATE) DECREASED Basophilic Stippling 1+ Anisocytosis 1+ 04 0642 Chemistry Sodium (137 - 145 mmol/L) 142 Potassium (3.5 - 5.1 mmol/L) 5.8 H Chloride (98 - 107 mmol/L) 93 L Carbon Dioxide (22 - 30 mmol/L) 41 H Anion Gap (5 - 16) 8 BUN (9 - 20 mg/dL) 23 H Creatinine (0.7 - 1.2 mg/dL) 0.8 Estimated GFR (>60 ml/min) > 60 BUN/Creatinine Ratio (7 - 25 %) 28.8 H Hematology CBC w Diff NO MAN DIFF REQ WBC (4.8 - 10.8 /CUMM) 7.3 RBC (4.70 - 6.10 /CUMM) 4.38 L Hgb (14.0 - 18.0 G/DL) 13.2 L Hct (42 - 52 %) 40.4 L MCV (80.0 - 94.0 FL) 92.1 MCH (27.0 - 31.0 PG) 30.2 MCHC (33.0 - 37.0 G/DL) 32.8 L RDW (11.5 - 14.5 %) 15.1 H Plt Count (130 - 400 /CUMM) 125 L MPV (7.4 - 10.4 FL) 8.2 Gran % (42.2 - 75.2 %) 83.8 H Lymphocytes % (20.5 - 51.1 %) 8.9 L Monocytes % (1.7 - 9.3 %) 7.2 Eosinophils % (0 - 5 %) 0 Basophils % (0.0 - 2.0 %) 0.1 Absolute Granulocytes (1.4 - 6.5 /CUMM) 6.1 Absolute Lymphocytes (1.2 - 3.4 /CUMM) 0.6 L Absolute Monocytes (0.10 - 0.60 /CUMM) 0.5 Absolute Eosinophils (0.0 - 0.7 /CUMM) 0 Absolute Basophils (0.0 - 0.2 /CUMM) 0 Imaging/Other Studies: CT head IMPRESSION: No acute intracranial pathology. Assessment/Plan Assessment: Paroxysmal falls, without any significant injury EEG did not show any epileptic activity These falls may be secondary to development of orthostasis Recommendations: Check for orthostatic blood pressure change both upon standing from a reclining position and 2 minutes later If not previously done so, thyroid function test and cortisol level Consult Acknowledgment - Thank you for your consult request.
[2017-06-03 18:50] VITALS: BP 120/60
[2017-06-03 22:38] VITALS: BP 130/84
[2017-06-04 06:55] VITALS: BP 150/84
[2017-06-04 06:56] VITALS: BP 150/84
--- NOTE | 2017-06-04 07:36 | ECHOCARDIOGRAM REPORT ---
JANETTE PAEZ Age: 72 : 1945 Gender: M Exam Date: 06/03/2017 10:50 Exam Location: [address] Ht (in): 68 Wt (lb): 246 BSA: 2.36 BP: 110 / 62 Ordering Physician: Umberto Knight MD Referring Physician: Umberto Knight MD Technologist: Wesley Kraus [facility] Room Number: [id number] Indications: LIGHTHEADEDNESS Rhythm: Sinus Technical Quality: Fair, Technically difficult study FINDINGS Left Ventricle Normal size left ventricle. No obvious regional wall motion abnormalities. Normal left ventricular ejection fraction estimated at 55-60%. Left ventricular wall thickness increased. Right Ventricle Right ventricle not well visualized, grossly normal. Right Atrium Right atrium not well visualized, grossly normal. Left Atrium Mild left atrial dilatation. Mitral Valve Mitral valve thickened. Mitral annular calcification. Trace to mild mitral regurgitation. Aortic Valve Trileaflet aortic valve. Diffuse thickening (sclerosis) of the aortic valve cusps without reduced excursion. No aortic stenosis. No aortic regurgitation. Tricuspid Valve Tricuspid valve not well visualized, grossly normal. Trace tricuspid regurgitation. Pulmonic Valve Pulmonic valve not well visualized. Pericardium No pericardial effusion. Great Vessels Aortic root and proximal ascending aorta not well visualized, grossly normal. CONCLUSIONS 1. THis was a technically difficult and limited study due to the patient's body habitus. 2. Aortic sclerosis is present with no valvular stenosis or insufficiency. 3. Mitral leaflet thickening is present with mild anular calcification and minimal to mild mitral insufficiency with mild left atrial enlargement. 4. There is no pericardial fluid detected on this examination. 5. The left ventricualr chamber size is normal. Borderline concentric hypertrophy is present with a normal ejection fraction and no visible resting wall motion abnormalities. MIld diastolic dysfunction is present. 6. The right heart structures were not optimally assessed. Minimal tricuspid insufficiency is present. THe RV systolic pressure was not accurately assessed on this study. Albaro López M.D. (Electronically Signed) Final Date: 04 June 2017 07:35 MEASUREMENTS (Male / Female) Normal Values 2D ECHO LV Diastolic Diameter PLAX 5.0 cm 4.2 - 5.9 / 3.9 - 5.3 cm LV Systolic Diameter PLAX 3.4 cm 2.1 - 4.0 cm LV Fractional Shortening PLAX 32.0 % 25 - 46 % LV Ejection Fraction 2D Teich 59.9 % IVS Diastolic Thickness 1.3 cm LVPW Diastolic Thickness 1.2 cm LV Relative Wall Thickness 0.5 RV Internal Dim ED PLAX 3.3 cm 1.9 - 3.8 cm LVOT Diameter 1.8 cm Aortic Root Diameter 2.7 cm LA Systolic Diameter LX 3.4 cm 3.0 - 4.0 / 2.7 - 3.8 cm LA Volume 53.0 cm 18 - 58 / 22 - 52 cm DOPPLER AV Peak Velocity 105.0 cm/s AV Peak Gradient 4.4 mmHg AV Mean Velocity 72.7 cm/s AV Mean Gradient 2.0 mmHg AV Velocity Time Integral 27.8 cm LVOT Peak Velocity 86.5 cm/s LVOT Peak Gradient 3.0 mmHg LVOT Mean Velocity 55.8 cm/s LVOT Mean Gradient 1.0 mmHg LVOT Velocity Time Integral 20.3 cm LVOT Stroke Volume 51.7 cm AV Area Cont Eq vti 1.9 cm AV Area Cont Eq pk 2.1 cm MV Peak Velocity 134.0 cm/s MV Peak Gradient 7.2 mmHg MV Mean Velocity 77.6 cm/s MV Mean Gradient 3.0 mmHg Mitral E Point Velocity 108.0 cm/s Mitral A Point Velocity 118.0 cm/s Mitral E to A Ratio 0.9 MV PHT Velocity 113.0 cm/s MV Deceleration [place] 386.0 cm/s MV Pressure Half Time 87.8 ms MV Area PHT 2.5 cm MV Deceleration Time 352.0 ms PV Peak Velocity 82.0 cm/s PV Peak Gradient 2.7 mmHg PV Mean Velocity 54.4 cm/s PV Mean Gradient 1.0 mmHg PV Velocity Time Integral 18.1 cm LV E' Lateral Velocity 5.9 cm/s Mitral E to LV E' Lateral Ratio 18.2 LV E' Septal Velocity 5.7 cm/s Mitral E to LV E' Septal Ratio 19.1
--- NOTE | 2017-06-04 09:20 | PN- Housestaff ---
Subjective Follow-up For: COPD exacerbation Tele-Events Since Last Visit: no events Subjective: patient states his breathing is mildly improved, no cough, no fever on baseline oxygen Review of Systems Constitutional: Reports: see HPI. Objective Last 24 Hrs of Vital Signs/I&O Vital Signs Date Time Temp Pulse Resp B/P B/P Pulse O2 O2 Flow FiO2 Mean Ox Delivery Rate 06/04 0817 84 20 150/84 06/04 0800 95 Nasal 3.0L Cannula 06/04 0753 95 Nasal 3.0L Cannula 06/04 0656 97.9 84 20 150/84 97 Nasal 3.0L Cannula 06/04 0655 97.9 20 20 150/84 97 Nasal 3.0L Cannula 06/03 2238 97.4 98 22 130/84 96 06/03 2235 Nasal 3.0L Cannula 06/04 2011 88 130/68 06/04 2011 88 130/68 06/03 1850 91 120/60 06/03 1618 98 Nasal 3.5L Cannula 06/03 1433 98.2 74 20 128/68 90 Nasal 3.0L Cannula Intake & Output 06/04 1600 06/04 0800 06/04 0000 Intake Total 300 250 Output Total Balance 300 250 Intake, Oral 300 250 Patient 114.334 kg Weight Physical Exam General Appearance: Alert, Oriented X3, Cooperative, No Acute Distress Cardiovascular: Regular Rate, Normal S1, Normal S2, No Murmurs Lungs: diminished air movement with scattered expiratory wheezing Abdomen: Normal Bowel Sounds, Soft, No Tenderness, No Masses Extremities: No Clubbing, No Cyanosis, No Edema, Normal Pulses Current Medications: Current Medications Sig/Lakisha Start time Last Medication Dose Route Stop Time Status Admin Acetaminophen 650 MG Q6P PRN 05/31 1930 AC PO Albuterol Sulfate 3 ML EVERY 4 HRS/AWAKE 06/01 1200 AC 06/04 INH 1130 Alendronate Sodium 70 MG QTUES@0700 06/11 0700 AC PO Allopurinol 300 MG DAILY 06/01 0900 AC 06/04 PO 0817 Amoxicillin/ 875 MG Q12 06/03 1020 AC 06/04 Clavulanate Potassium PO 0817 Atorvastatin Calcium 10 MG 1700 06/01 1700 AC 06/03 PO 1739 Budesonide/ 2 PUF BID PRN 06/02 1900 AC 06/04 Formoterol Fumarate INH 0819 Calcium/Vitamin D 500 MG DAILY 05/31 1450 AC 06/04 PO 0817 Duloxetine HCl 60 MG DAILY 06/01 09 AC 06/04 PO 0817 Enoxaparin Sodium 40 MG DAILY 06/01 09 AC 06/04 SC 0823 Folic Acid 1 MG BID 05/31 2099 AC 06/04 PO 0817 Guaifenesin/ 10 ML Q6P PRN 06/01 2300 AC 06/03 Dextromethorphan PO 2012 Insulin Aspart 0 TIDAC 06/01 08 AC 06/04 SC 0749 Insulin Detemir 30 UNITS BID 05/31 2099 AC 06/04 SC 0748 Methotrexate 15 MG QSUN 06/09 0900 AC PO Methylprednisolone 40 MG Q12 06/03 2099 AC 06/04 IV 06/040 19 Metoprolol Tartrate 50 MG BID 05/31 2099 AC 06/04 PO 0817 Nicotine 2 MG Q2 HRS NEEDED PRN 05/31 1530 AC PO Nicotine 14 MG DAILY 05/31 1515 AC 06/04 TOP 0828 Nystatin 5 ML BID 06/01 2099 AC 06/02 PO 2138 Omeprazole 20 MG BID 05/31 2099 AC 06/04 PO 0817 Oxycodone HCl 5 MG Q6P PRN 05/31 1930 AC PO Prednisone 50 MG DAILY 06/05 0900 UNVr PO Prednisone 40 MG DAILY 06/04 0900 CAN PO Spironolactone 25 MG DAILY 06/01 09 AC 06/04 PO 0817 Tamsulosin HCl 0.4 MG QPM 05/31 2099 AC 06/03 PO 2011 Last 24 Hrs of Lab/[place] Results Last 24 Hrs of Labs/Mics: Laboratory Tests 06/04/17 0653: Anion Gap 6, Estimated GFR > 60, BUN/Creatinine Ratio 38.0 H, Cortisol AM Sample 6.1 Assessment/Plan Assessment: 72 year old male past medical history of BOB noncompliant with CPAP, DM, RA on steroids, GERD, gout, BPH, HTN, HFpEF, and COPD on 3.5 L of oxygen presented with shortness of breath and complaints of presyncope. COPD exacerbation: secondary to CAP Chest x-ray showed hazy bibasilar opacities Continue supplemental oxygen to maintain oxygen saturation above 92%. TRC evaluation Augmentin BID, day 5 On solumedrol 40mg IV BID Change to PO prednisone 50mg daily tomorrow Continue Mucinex, robitussin and symbicort Syncope: Probably vasovagal No arrhythmias on telemetry Echocardiogram shows borderline LVH and mild diastolic dysfunction Right heart suboptimal assessment Head CT negative for acute changes No epileptiform changes on EEG TSH low but thyroid hormones wnl Random cortisol wnl, on chronic steroids Rheumatoid arthritis: Continue methotrexate On chronic steroids 10mg PO prednisone daily History of hypertension: Continue metoprolol 50mg PO BID Continue spironolactone Diabetes: Accuchecks TIDAC Novolog sliding scale insulin Continue levemir 30units BID HLD: Continue atorvastatin DVT ppx-ALPs and lovenox 40mg subcutaneous daily Full code Problem List: 1. Diabetes 2. Rheumatoid arthritis 3. Acute and chronic respiratory failure with hypoxia 4. Pneumonia 5. COPD exacerbation Pain Ratin Pain Location: n/a Pain Goal: Pain 4 or less Pain Plan: prn Tomorrow's Labs & Rationales: none, anticipated discharge
--- NOTE | 2017-06-04 11:57 | PN- Att Addend ---
Attending Addendum Attending Brief Note Patient seen and examined. Plan of care discussed with the medical team and the patient. Available lab work and radiology test reports were reviewed. Patient still feels short of breath. He continues to have coughing which is mostly dry. He denies any fever chills nausea vomiting or any chest pains. He remains on oxygen and his oxygen requirement had increased from 2 L to 3 L. Exam: General: Patient awake alert oriented without any distress CVS: S1 plus S2 without any murmur or gallops Chest: Few scattered crepitation with expiratory wheeze bilaterally. There is no respiratory distress. He appears slightly tachypneic Abdomen: Soft non-tender, bowel sound present, no guarding or rebound BOOM TENDER: Awake alert oriented without any focal neuro deficit and follows commands appropriately Extremities: No edema; no clubbing or cyanosis noted Assessment * COPD exacerbation * Community-acquired pneumonia * Dizziness and possible syncopal episode * Normocytic anemia * Smoking Plan * Continue Augmentin 875 twice a day for 2 more days * Continue Solu Medrol * Increase ambulation * Taper oxygen * Continue TRC nebs as a treatment * Prepare for discharge tomorrow Current Medications Sig/Lakisha Start time Last Medication Dose Route Stop Time Status Admin Acetaminophen 650 MG Q6P PRN 05/31 1930 AC PO Albuterol Sulfate 3 ML EVERY 4 HRS/AWAKE 06/01 1200 AC 06/04 INH 1130 Alendronate Sodium 70 MG QTUES@0700 06/11 0700 AC PO Allopurinol 300 MG DAILY 06/01 0900 AC 06/04 PO 0817 Amoxicillin/ 875 MG Q12 06/03 1020 AC 06/04 Clavulanate Potassium PO 0817 Atorvastatin Calcium 10 MG 1700 06/01 1700 AC 06/03 PO 1739 Budesonide/ 2 PUF BID PRN 06/02 1900 AC 06/04 Formoterol Fumarate INH 0819 Calcium/Vitamin D 500 MG DAILY 05/31 1450 AC 06/04 PO 0817 Duloxetine HCl 60 MG DAILY 06/01 0900 AC 06/04 PO 0817 Enoxaparin Sodium 40 MG DAILY 06/01 0900 AC 06/04 SC 0823 Folic Acid 1 MG BID 05/31 2100 AC 06/04 PO 0817 Guaifenesin/ 10 ML Q6P PRN 06/01 2300 AC 06/03 Dextromethorphan PO 2013 Insulin Aspart 0 TIDAC 06/01 08 AC 06/04 OK 0749 Insulin Detemir 30 UNITS BID 05/31 2099 06/04 SC 0748 Methotrexate 15 MG QSUN 06/09 09 AC PO Methylprednisolone 40 MG Q12 06/03 IV 06/04 2300 0819 Metoprolol Tartrate 50 MG BID 05/31 2099 AC 06/04 PO 0817 Nicotine 2 MG Q2 HRS NEEDED PRN 05/31 1530 AC PO Nicotine 14 MG DAILY 05/31 1515 06/04 TOP 0828 Nystatin 5 ML BID 06/01 2099 AC 06/02 PO 2138 Omeprazole 20 MG BID 05/31 2099 AC 06/04 PO 0817 Oxycodone HCl 5 MG Q6P PRN 05/31 1930 AC PO Prednisone 50 MG DAILY 06/05 899 AC PO Prednisone 40 MG DAILY 06/04 0900 CAN PO Spironolactone 25 MG DAILY 06/01 09 AC 06/04 PO 0817 Tamsulosin HCl 0.4 MG QPM 05/31 2099 AC 06/03 PO 2011 Laboratory Tests 06/04/17 0653: Anion Gap 6, Estimated GFR > 60, BUN/Creatinine Ratio 38.0 H, Cortisol AM Sample 6.1 06/03/17 0625: Anion Gap 8, Estimated GFR > 60, BUN/Creatinine Ratio 35.0 H, TSH 0.135 L, Free T4 1.08, CBC w Diff MAN DIFF ORDERED, RBC 4.22 L, MCV 92.5, MCH 29.8, MCHC 32.2 L, RDW 15.1 H, MPV 8.6, Gran % 86.7 H, Lymphocytes % 7.7 L, Monocytes % 5.6, Eosinophils % 0, Basophils % 0, Absolute Granulocytes 5.7, Segmented Neutrophils 84 H, Band Neutrophils 1, Absolute Lymphocytes 0.5 L, Lymphocytes 7 L, Monocytes 6, Absolute Monocytes 0.4, Absolute Eosinophils 0, Absolute Basophils 0, Metamyelocytes 2 H, Platelet Estimate DECREASED, Basophilic Stippling 1+, Anisocytosis 1+ 06/02/17 1600: Sodium Cancelled, Potassium Cancelled, Chloride Cancelled, Carbon Dioxide Cancelled, Anion Gap Cancelled, BUN Cancelled, Creatinine Cancelled, BUN/ Creatinine Ratio Cancelled 06/02/17 1205: Anion Gap 9, Estimated GFR > 60, BUN/Creatinine Ratio 40.0 H 06/02/17 0642: Anion Gap 8, Estimated GFR > 60, BUN/Creatinine Ratio 28.8 H, CBC w Diff NO MAN DIFF REQ, RBC 4.38 L, MCV 92.1, MCH 30.2, MCHC 32.8 L, RDW 15.1 H, MPV 8.2, Gran % 83.8 H, Lymphocytes % 8.9 L, Monocytes % 7.2, Eosinophils % 0, Basophils % 0.1, Absolute Granulocytes 6.1, Absolute Lymphocytes 0.6 L, Absolute Monocytes 0.5, Absolute Eosinophils 0, Absolute Basophils 0 Microbiology 06/01 152 LOWER RESP: Respiratory Culture - CAN Cancelled: SPECIMEN NOT RECEIVED IN LABORATORY 06/01 1528 LOWER RESP: Gram Stain - CAN Cancelled: SPECIMEN NOT RECEIVED IN LABORATORY Vital Signs Date Time Temp Pulse Resp B/P B/P Pulse O2 O2 Flow FiO2 Mean Ox Delivery Rate 06/04 0817 84 20 150/84 06/04 0800 95 Nasal 3.0L Cannula 06/04 0753 95 Nasal 3.0L Cannula 06/04 0656 97.9 84 20 150/84 97 Nasal 3.0L Cannula 06/04 0655 97.9 20 20 150/84 97 Nasal 3.0L Cannula 06/03 2238 97.4 98 22 130/84 96 06/03 2235 Nasal 3.0L Cannula 06/04 2011 88 130/68 06/04 2011 88 130/68 06/03 1850 91 120/60 06/03 1618 98 Nasal 3.5L Cannula 06/03 1433 98.2 74 20 128/68 90 Nasal 3.0L Cannula Intake & Output 06/04 1600 06/04 0800 06/04 0000 Intake Total 300 250 Output Total Balance 300 250 Intake, Oral 300 250 Patient 252 lb Weight Echo 1. THis was a technically difficult and limited study due to the patient's body habitus. 2. Aortic sclerosis is present with no valvular stenosis or insufficiency. 3. Mitral leaflet thickening is present with mild anular calcification and minimal to mild mitral insufficiency with mild left atrial enlargement. 4. There is no pericardial fluid detected on this examination. 5. The left ventricualr chamber size is normal. Borderline concentric hypertrophy is present with a normal ejection fraction and no visible resting wall motion abnormalities. MIld diastolic dysfunction is present. 6. The right heart structures were not optimally assessed. Minimal tricuspid insufficiency is present. THe RV systolic pressure was not accurately assessed on this study.
--- NOTE | 2017-06-04 13:43 | PN- Pulmonary ---
Subjective HPI/Critical Care Issues: pt seen and examined wheezing improved Objective Current Medications: Current Medications Sig/Lakisha Start time Last Medication Dose Route Stop Time Status Admin Acetaminophen 650 MG Q6P PRN 05/31 1930 AC PO Albuterol Sulfate 3 ML EVERY 4 HRS/AWAKE 06/01 1200 AC 06/04 INH 1130 Alendronate Sodium 70 MG QTUES@0700 06/11 0700 AC PO Allopurinol 300 MG DAILY 06/01 0900 AC 06/04 PO 0817 Amoxicillin/ 875 MG Q12 06/03 1020 AC 06/04 Clavulanate Potassium PO 0817 Atorvastatin Calcium 10 MG 1700 06/01 1700 AC 06/03 PO 1739 Budesonide/ 2 PUF BID PRN 06/02 1900 AC 06/04 Formoterol Fumarate INH 0819 Calcium/Vitamin D 500 MG DAILY 05/31 1450 AC 06/04 PO 0817 Duloxetine HCl 60 MG DAILY 06/01 0900 AC 06/04 PO 0817 Enoxaparin Sodium 40 MG DAILY 06/01 0900 AC 06/04 SC 0823 Folic Acid 1 MG BID 05/31 2100 AC 06/04 PO 0817 Guaifenesin/ 10 ML Q6P PRN 06/01 2300 AC 06/03 Dextromethorphan PO 2012 Insulin Aspart 0 TIDAC 06/01 0800 AC 06/04 SC 1206 Insulin Detemir 30 UNITS BID 05/31 2100 AC 06/04 SC 0748 Methotrexate 15 MG QSUN 06/09 0900 AC PO Methylprednisolone 40 MG Q12 06/03 2100 AC 06/04 IV 06/04 2300 0819 Metoprolol Tartrate 50 MG BID 05/31 2100 AC 06/04 PO 0817 Nicotine 2 MG Q2 HRS NEEDED PRN 05/31 1530 AC PO Nicotine 14 MG DAILY 05/31 1515 AC 06/04 TOP 0828 Nystatin 5 ML BID 06/01 2100 AC 06/02 PO 2138 Omeprazole 20 MG BID 05/31 2100 AC 06/04 PO 0817 Oxycodone HCl 5 MG Q6P PRN 05/31 1930 AC PO Prednisone 50 MG DAILY 06/05 0900 AC PO Prednisone 40 MG DAILY 06/04 0900 CAN PO Spironolactone 25 MG DAILY 06/01 0900 AC 06/04 PO 0817 Tamsulosin HCl 0.4 MG QPM 05/31 2100 AC 06/03 PO 2011 Vital Signs & I&O Last 24 Hrs of Vitals and I&O: Vital Signs Date Time Temp Pulse Resp B/P B/P Pulse O2 O2 Flow FiO2 Mean Ox Delivery Rate 06/04 0817 84 20 150/84 06/04 0800 95 Nasal 3.0L Cannula 06/04 0753 95 Nasal 3.0L Cannula 06/04 0656 97.9 84 20 150/84 97 Nasal 3.0L Cannula 06/04 0655 97.9 20 20 150/84 97 Nasal 3.0L Cannula 06/03 2238 97.4 98 22 130/84 96 06/03 2235 Nasal 3.0L Cannula 06/04 2011 88 130/68 06/04 2011 88 130/68 06/03 1850 91 120/60 06/03 1618 98 Nasal 3.5L Cannula 06/03 1433 98.2 74 20 128/68 90 Nasal 3.0L Cannula Intake & Output 06/04 1600 06/04 0800 06/04 0000 Intake Total 300 250 Output Total Balance 300 250 Intake, Oral 300 250 Patient 252 lb Weight Exam Other Physical Findings: gen awake and alert heent nasal cannula cvs s1, s2 lungs improved wheezing abd soft ext no edema Results Last 24 Hrs of Lab Results: Laboratory Tests 06/04/17 0653: Anion Gap 6, Estimated GFR > 60, BUN/Creatinine Ratio 38.0 H, Cortisol AM Sample 6.1 Impression/Plan Impression/Plan Impression/Plan: Impression 72 year old man * exacerbation of COPD in setting of RA * CAP * dizzines/?syncope * tobacco dependence Plan -smoking cessation/counseled -continue solumedrol 40mg iv q12h today - reduce to 60mg prednisone in am and plan for discharge tomorrow -complete course of Augmentin as ordered -f/u outpatien with cxr within 1 month -spo2 goal >92% DVT prophylaxis at all times
[2017-06-04 14:48] VITALS: BP 130/70
--- NOTE | 2017-06-04 20:37 | PN- Cardiology ---
Subjective Subjective: * Patient feels much improved without shortness of breath or orthopnea. * improved potassium level * sinus rhythm Objective Vital Signs and I&Os Vital Signs Date Time Temp Pulse Resp B/P B/P Pulse O2 O2 Flow FiO2 Mean Ox Delivery Rate 06/04 1606 96 Nasal 3.0L Cannula 06/04 1600 Nasal 3.0L Cannula 06/04 1448 97.8 78 20 130/70 95 Room Air 06/04 0817 84 20 150/84 06/04 0800 95 Nasal 3.0L Cannula 06/04 0753 95 Nasal 3.0L Cannula 06/04 0656 97.9 84 20 150/84 97 Nasal 3.0L Cannula 06/04 0655 97.9 20 20 150/84 97 Nasal 3.0L Cannula 06/03 2238 97.4 98 22 130/84 96 06/03 2235 Nasal 3.0L Cannula Intake & Output 06/04 1600 06/04 0800 06/04 0000 06/03 1600 06/03 0800 06/03 0000 Intake Total 600 300 250 659 212 0721 Output Total Balance 600 300 250 514 906 5329 Intake, IV 100 Intake, Oral 600 300 250 826 585 5101 Patient 252 lb 249 lb Weight Weight Bed scale Measurement Method Physical Exam: General: WD/obese male in NAD; alert and oriented x 3 HEENT: NC/AT, PERRL, EOMI Neck: no JVD, no carotid bruit Heart: RRR w/o murmur Lungs: No crackles or wheezing ABdomen: soft, obese, NT, +ve bowel sounds Extremities: no edema Assessment/Plan Assessment/Plan * This patient with shortness of breath does not have physical findings or laboratory testing such as X-ray or BNP that are suggestive of decompensated CHF. I would be inclined to continue treating him for his COPD. The patient does have a RBBB on his echocardiogram which is consistent with increased pulmonary pressures. * In regard to the patient's history of syncope, I am somewhat suspicous of seizure although hypoglycemia should be considered accompanied by tremulousness. No arrhythmias are noted and in the setting of a normal EF he is unlikely to have a malignant ventricular dysrhythmia. The patient was noted to be orthostatic upon admission. I would continue to hold his diuretics for now since there is no evidence of decompensated CHF. Continue telemetry? No
[2017-06-04 22:16] VITALS: BP 130/78
[2017-06-05 06:46] VITALS: BP 140/78
--- NOTE | 2017-06-05 07:04 | PN- Housestaff ---
Subjective Follow-up For: COPD exacerbation Tele-Events Since Last Visit: sinus rhythm no events Subjective: breathing feeling better today no new complaints afebrile Review of Systems Constitutional: Reports: see HPI. Objective Last 24 Hrs of Vital Signs/I&O Vital Signs Date Time Temp Pulse Resp B/P B/P Pulse O2 O2 Flow FiO2 Mean Ox Delivery Rate 06/05 1000 Nasal 3.0L Cannula 06/05 0805 92 Nasal 3.0L Cannula 06/05 0802 88 120/72 06/05 0646 97.7 78 24 140/78 92 Nasal 3.0L Cannula 06/05 0000 92 Nasal 3.0L Cannula 06/04 2216 98.2 81 24 130/78 92 06/04 2046 87 144/72 06/04 2046 87 144/72 06/04 1606 96 Nasal 3.0L Cannula 06/04 1600 Nasal 3.0L Cannula 06/04 1448 97.8 78 20 130/70 95 Room Air Intake & Output 06/05 1600 06/05 0800 06/05 0000 Intake Total 110 520 Output Total Balance 110 520 Intake, IV 10 Intake, Oral 100 520 Patient 113.483 kg Weight Weight Bed scale Measurement Method Physical Exam General Appearance: Alert, Oriented X3, Cooperative, No Acute Distress Cardiovascular: Regular Rate, Normal S1, Normal S2, No Murmurs Lungs: significantly diminished breath sounds, minimal wheezing Abdomen: Normal Bowel Sounds, Soft, No Tenderness, No Masses Current Medications: Current Medications Sig/Lakisha Start time Last Medication Dose Route Stop Time Status Admin Acetaminophen 650 MG Q6P PRN 05/31 1930 DCD PO Albuterol Sulfate 3 ML EVERY 4 HRS/AWAKE 06/01 1200 DCD 06/05 INH 1148 Alendronate Sodium 70 MG QTUES@0700 06/11 0700 DCD PO Allopurinol 300 MG DAILY 06/01 0900 DCD 06/05 PO 0800 Amoxicillin/ 875 MG Q12 06/03 1020 DCD 06/05 Clavulanate Potassium PO 0759 Atorvastatin Calcium 10 MG 1700 06/01 1700 DCD 06/04 PO 1701 Budesonide/ 2 PUF BID PRN 06/02 1900 DCD 06/04 Formoterol Fumarate INH 0819 Calcium/Vitamin D 500 MG DAILY 05/31 1450 DCD 06/05 PO 0759 Duloxetine HCl 60 MG DAILY 06/01 0900 DCD 06/05 PO 0759 Enoxaparin Sodium 40 MG DAILY 06/01 09 DCD 06/05 SC 0744 Folic Acid 1 MG BID 05/31 2099 DCD 06/05 PO 0759 Guaifenesin/ 10 ML Q6P PRN 06/01 2300 DCD 06/03 Dextromethorphan PO 2012 Insulin Aspart 0 TIDAC 06/01 08 DCD 06/05 SC 0744 Insulin Detemir 30 UNITS BID 05/31 2099 DCD 06/05 SC 0744 Methotrexate 15 MG QSUN 06/09 0900 DCD PO Methylprednisolone 40 MG Q12 06/03 2100 DC 06/04 IV 06/04 2300 2044 Metoprolol Tartrate 50 MG BID 05/31 2099 DCD 06/05 PO 0802 Nicotine 2 MG Q2 HRS NEEDED PRN 05/31 1530 DCD PO Nicotine 14 MG DAILY 05/31 1515 DCD 06/05 TOP 0744 Nystatin 5 ML BID 06/01 2099 DCD 06/05 PO 0746 Omeprazole 20 MG BID 05/31 2099 DCD 06/05 PO 0800 Oxycodone HCl 5 MG Q6P PRN 05/31 1930 DCD PO Prednisone 50 MG DAILY 06/05 09 DC PO Prednisone 60 MG DAILY 06/05 09 DCD 06/05 PO 0759 Spironolactone 25 MG DAILY 06/01 09 DCD 06/05 PO 0758 Tamsulosin HCl 0.4 MG QPM 05/31 2099 DCD 06/04 PO 2045 Assessment/Plan Assessment: 72 year old male past medical history of BOB noncompliant with CPAP, DM, RA on steroids, GERD, gout, BPH, HTN, HFpEF, and COPD on 3.5 L of oxygen presented with shortness of breath and complaints of presyncope. COPD exacerbation: secondary to CAP Chest x-ray showed hazy bibasilar opacities Continue supplemental oxygen to maintain oxygen saturation above 92%. TRC evaluation Augmentin BID, day 6 On PO prednisone 60mg daily, taper by 10mg every 3 days to 10mg baseline for RA Continue Mucinex, robitussin and symbicort Syncope: Probably vasovagal No arrhythmias on telemetry Echocardiogram shows borderline LVH and mild diastolic dysfunction Right heart suboptimal assessment Head CT negative for acute changes No epileptiform changes on EEG TSH low but thyroid hormones wnl Random cortisol wnl, on chronic steroids Rheumatoid arthritis: Continue methotrexate On chronic steroids 10mg PO prednisone daily History of hypertension: Continue metoprolol 50mg PO BID Continue spironolactone Diabetes: Accuchecks TIDAC Novolog sliding scale insulin Continue levemir 30units BID HLD: Continue atorvastatin DVT ppx-lovenox 40mg subcutaneous daily Full code Problem List: 1. Pneumonia 2. COPD exacerbation Pain Ratin Pain Location: n/a Pain Goal: Pain 4 or less Pain Plan: prn Tomorrow's Labs & Rationales: none, discharge
[2017-06-05 08:02] VITALS: BP 120/72
--- NOTE | 2017-06-05 10:41 | PN- Att Addend ---
Attending Addendum Attending Brief Note Patient seen and examined. Plan of care discussed with the medical team and the patient. Available lab work and radiology test reports were reviewed. Patient feels somewhat better yesterday. Still has intermittent coughing which is mostly dry. Denies any chest pain or fever. He remains on oxygen. Exam: General: Patient awake alert oriented without any distress CVS: S1 plus S2 without any murmur or gallops Chest: Few scattered crepitation with expiratory wheeze bilaterally which has decreased since yesterday. There is no respiratory distress. He appears slightly tachypneic Abdomen: Soft non-tender, bowel sound present, no guarding or rebound ALUM OPERATOR: Awake alert oriented without any focal neuro deficit and follows commands appropriately Extremities: No edema; no clubbing or cyanosis noted Assessment * COPD exacerbation * Community-acquired pneumonia * Dizziness and possible syncopal episode * Normocytic anemia * Smoking Plan * Continue Augmentin 875 twice a day for 1 more days * Continue prednisone taper down to 10 mg and then continue 10 mg daily * Discharge home today. Patient to medical stable for discharge. * Follow-up with Dr. Blake Current Medications Sig/Lakisha Start time Last Medication Dose Route Stop Time Status Admin Acetaminophen 650 MG Q6P PRN 05/31 1930 AC PO Albuterol Sulfate 3 ML EVERY 4 HRS/AWAKE 06/01 1200 AC 06/05 INH 0804 Alendronate Sodium 70 MG QTUES@0700 06/11 0700 AC PO Allopurinol 300 MG DAILY 06/01 0900 AC 06/05 PO 0800 Amoxicillin/ 875 MG Q12 06/03 1020 AC 06/05 Clavulanate Potassium PO 0759 Atorvastatin Calcium 10 MG 1700 06/01 1700 AC 06/04 PO 1701 Budesonide/ 2 PUF BID PRN 06/02 1900 AC 06/04 Formoterol Fumarate INH 0819 Calcium/Vitamin D 500 MG DAILY 05/31 1450 AC 06/05 PO 0759 Duloxetine HCl 60 MG DAILY 06/01 09 AC 06/05 PO 0759 Enoxaparin Sodium 40 MG DAILY 06/01 0900 AC 06/05 SC 0744 Folic Acid 1 MG BID 05/31 2100 AC 06/05 PO 0759 Guaifenesin/ 10 ML Q6P PRN 06/01 2300 AC 06/03 Dextromethorphan PO 2012 Insulin Aspart 0 TIDAC 06/01 0800 AC 06/05 ND 0744 Insulin Detemir 30 UNITS BID 05/31 2099 AC 06/05 SC 0744 Methotrexate 15 MG QSUN 06/09 09 AC PO Methylprednisolone 40 MG Q12 06/03 2099 DC 06/04 IV 06/04 Metoprolol Tartrate 50 MG BID 05/31 2099 AC 06/05 PO 0802 Nicotine 2 MG Q2 HRS NEEDED PRN 05/31 1530 AC PO Nicotine 14 MG DAILY 05/31 1515 06/05 TOP 0744 Nystatin 5 ML BID 06/01 2099 AC 06/05 PO 0746 Omeprazole 20 MG BID 05/31 2099 AC 06/05 PO 0800 Oxycodone HCl 5 MG Q6P PRN 05/31 1930 AC PO Prednisone 50 MG DAILY 06/05 09 DC PO Prednisone 60 MG DAILY 06/05 09 AC 06/05 PO 0759 Spironolactone 25 MG DAILY 06/01 09 AC 06/05 PO 0758 Tamsulosin HCl 0.4 MG QPM 05/31 2099 AC 06/04 PO 2045 Laboratory Tests 06/04/17 0653: Anion Gap 6, Estimated GFR > 60, BUN/Creatinine Ratio 38.0 H, Cortisol AM Sample 6.1 06/03/17 0625: Anion Gap 8, Estimated GFR > 60, BUN/Creatinine Ratio 35.0 H, TSH 0.135 L, Free T4 1.08, CBC w Diff MAN DIFF ORDERED, RBC 4.22 L, MCV 92.5, MCH 29.8, MCHC 32.2 L, RDW 15.1 H, MPV 8.6, Gran % 86.7 H, Lymphocytes % 7.7 L, Monocytes % 5.6, Eosinophils % 0, Basophils % 0, Absolute Granulocytes 5.7, Segmented Neutrophils 84 H, Band Neutrophils 1, Absolute Lymphocytes 0.5 L, Lymphocytes 7 L, Monocytes 6, Absolute Monocytes 0.4, Absolute Eosinophils 0, Absolute Basophils 0, Metamyelocytes 2 H, Platelet Estimate DECREASED, Basophilic Stippling 1+, Anisocytosis 1+ 06/02/17 1600: Sodium Cancelled, Potassium Cancelled, Chloride Cancelled, Carbon Dioxide Cancelled, Anion Gap Cancelled, BUN Cancelled, Creatinine Cancelled, BUN/ Creatinine Ratio Cancelled 06/02/17 1205: Anion Gap 9, Estimated GFR > 60, BUN/Creatinine Ratio 40.0 H Vital Signs Date Time Temp Pulse Resp B/P B/P Pulse O2 O2 Flow FiO2 Mean Ox Delivery Rate 06/05 1000 Nasal 3.0L Cannula 06/05 0805 92 Nasal 3.0L Cannula 06/05 0802 88 120/72 06/05 0646 97.7 78 24 140/78 92 Nasal 3.0L Cannula 06/05 0000 92 Nasal 3.0L Cannula 06/04 2216 98.2 81 24 130/78 92 06/04 2046 87 144/72 06/04 2046 87 144/72 06/04 1606 96 Nasal 3.0L Cannula 06/04 1600 Nasal 3.0L Cannula 06/04 1448 97.8 78 20 130/70 95 Room Air Intake & Output 06/05 1600 06/05 0800 06/05 0000 Intake Total 110 520 Output Total Balance 110 520 Intake, IV 10 Intake, Oral 100 520 Patient 250 lb Weight Weight Bed scale Measurement Method Total time spent in preparation for discharge plan, patient education, and CMR preparation was 35 minutes.
[2017-06-05] MEDS ORDERED: PREDNISONE10 M2 AD (11:06)
--- NOTE | 2017-06-05 13:11 | Discharge Summary ---
Visit Information Visit Dates Admission Date: 05/31/17 Discharge Date: 06/05/17 Hospital Course Course Attending Physician: Susy Pittman MD Primary Care Physician: Tanmay Zee MD Hospital Course: 72 year old male past medical history of BOB noncompliant with CPAP, DM, RA on steroids, GERD, gout, BPH, HTN, HFpEF, and COPD on 3.5 L of oxygen presented with shortness of breath and complaints of presyncope. The patient was admitted to telemetry for his symptoms of presyncope. He had an EEG performed and neurology consultation. Non contrast head CT had no acute abormalities and EEG demonstrated mild background slowing but no epileptiform activity. Troponins were negative, had no arrhythmias on telemetry, and an echocardiogram showed borderline left ventricular hypertrophy and mild diastolic dysfunction with a normal ejection fraction and suboptimal right heart assessment. In regards to the patient's complaints of dyspnea, he was treated for a COPD exacerbation secondary to a community acquired pneumonia. Chest x-ray demonstrated bibasilar hazy opacities suggestive of developing infiltrate compared to prior imaging and the patient was started on Ceftriaxone/ Azithromycin and switched to oral Augemtin for a total six day course of antibiotics. He was also treated with intravenous steroids for his COPD exacerbation in addition to bronchodilators and his other home medications. He was discharged on a prednisone taper down to 10mg daily which is his chronic home dose for rheumatoid arthritis. He has chronic hypoxic respiratory failure requiring supplemental oxygen at home yet continues to smoke and was counseled extensively on smoking cessation. 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 Blake and primary care physician. Allergies: Coded Allergies: Sulfa (Sulfonamide Antibiotics) (Intermediate, RASH/HIVES 11/09/16) Disposition Summary Disposition Principal Diagnosis: Community acquired pneumonia COPD exacerbation Chronic hypoxic respiratory failure Additional Diagnosis: Smoking Rheumatoid arthritis Obstructive sleep apnea noncompliant with CPAP HFpEF Hypertension Diabetes mellitus Discharge Disposition: home health services Discharge Instructions General Discharge Information Code Status: Full Code Patient's Diet: Diabetic diet Patient's Activity: As tolerated Follow-Up Instructions/Appts: Please follow up with your primary care physician and tire builder (Dr. Blake) one week after discharge. Medications at Discharge Discharge Medications: Continue taking these medications: Duloxetine HCl (Cymbalta) 60 MG CAPSULE. 1 Capsule ORAL DAILY Comments: Last Taken: 06/05/17 Time: 8:00 AM Allopurinol (Allopurinol) 300 MG TABLET 1 Tablet ORAL DAILY Comments: Last Taken: 06/05/17 Time: 8:00 AM Folic Acid (Folic Acid) 1 MG TABLET 1 Tablet ORAL TWICE DAILY Comments: Last Taken: 06/05/17 Time: 8:00 AM Omeprazole (Omeprazole) 20 MG CAPSULE.DR 1 Capsule ORAL TWICE DAILY Comments: Last Taken: 06/05/17 Time: 8:00 AM Spironolactone (Aldactone) 25 MG TABLET 1 Tablet ORAL DAILY Comments: Last Taken: 06/05/17 Time: 8:00 AM Furosemide (Furosemide) 40 MG TABLET 1 Tablet ORAL DAILY Comments: NOT GIVEN Tamsulosin HCl (Flomax) 0.4 MG CAP.ER.24H 1 Capsule ORAL Every night Comments: Last Taken: 06/04/17 Time: 8:45 PM Lovastatin (Lovastatin) 40 MG TABLET 1 Tablet ORAL Every night Instructions: with food Comments: Last Taken: 06/04/17 Time: 5:00 PM Insulin Glargine,Hum.rec.anlog (Lantus Solostar) 100 UNIT/ML (3 ML) INSULN.PEN 30 Unit Inject into fatty tissue TWICE DAILY Comments: [facility] Last Taken: 06/05/17 Time: 8:00 AM Budesonide/Formoterol Fumarate (Symbicort 160-4.5 Mcg Inhaler) 160 MCG-4.5 MCG/ ACTUATION HFA.AER.AD 2 Puff Inhale through mouth TWICE DAILY as needed for COPD Comments: Last Taken: 06/04/17 Time: 8:20 AM Albuterol Sulfate (Albuterol Sulfate) 2.5 MG/3 ML (0.083 %) VIAL.NEB 1 Vial Inhale Solution 5 TIMES A DAY Comments: Last Taken: 06/05/17 Time: 8:00 AM Metoprolol Tartrate (Lopressor) 50 MG TABLET 1 Tablet ORAL TWICE DAILY Comments: Last Taken: 06/05/17 Time: 8:00 AM Methotrexate (Methotrexate) 2.5 MG TABLET 6 Tablet ORAL EVERY SATURDAY Comments: NOT GIVEN IN HOSPITAL Oxycodone HCl/Acetaminophen (Oxycodone-Acetaminophen 10-325) 10 MG-325 MG TABLET 1 Tablet ORAL 4 times daily as needed as needed for PAIN Qty = 120 Comments: NOT GIVEN IN HOSPITAL Alendronate Sodium (Alendronate Sodium) 70 MG TABLET 1 Tablet ORAL EVERY SATURDAY Qty = 12 Instructions: in the morning, at least 30 minutes before the first food, beverage, or medication of the day Comments: NOT GIVEN IN HOSPITAL Calcium Carbonate/Vitamin D3 (Caltrate 600 + D Tablet) 600 MG-800 TABLET 1 Tablet ORAL DAILY Comments: Last Taken: 06/05/17 Time: 8:00 AM Cyanocobalamin (Vitamin B-12) (Cyanocobalamin Injection) 1,000 MCG/ML VIAL 1 Milliliters INTRAMUSC ONCE A MONTH Comments: NOT TAKEN IN HOSPITAL Prednisone (Prednisone) 10 MG TABLET 1 Tablet ORAL DAILY Comments: Last Taken: 06/05/17 Time: 8:00 AM 60 MG GIVEN Tiotropium [place] (Spiriva) 18 MCG CAP.W.DEV 1 Capsule Inhale through mouth DAILY Qty = 90 Comments: NOT GIVEN IN HOSPITAL Start taking the following new medications: Prednisone (Prednisone) 10 MG TABLET 1 Tablet Right Ear DAILY Qty = 60 No Refills Instructions: TAKE 6 TABS X 3 DAYS TAKE 5 TABS X 3 DAYS TAKE 4 TABS X 3 DAYS TAKE 3 TABS X 3 DAYS TAKE 2 TABS X 3 DAYS THEN TAKE 1 TAB DAILY Comments: Last Taken: 06/05/17 Time: 8:00 AM Copies To: Tanmay Zee MD; Sebastian Blake MD, MD Review Statement Documenting Attending: Susy Pittman MD Copies To: Tanmay Zee MD; Sebastian Blake MD, MD Review Statement Documenting Attending: Susy Pittman MD
== END 2017-06-05 12:50 | disposition home health service (06) | DRG 190 ==
LOC: ERH 12:49 → 1NO 14:29 → ERHI 14:29 → EDBEDREQ 16:18 → ENRESERV 17:32 → ENTRNSPT 18:35 → EDTRNSPTSTS 18:48 → EDTRNSPT 18:48 → 1NO 19:02 → CMPTRNSPT 19:08 → 1NO 06-02 14:55 → ENPENDDIS 06-05 11:04 → ENTRNSPT 06-05 12:38 → EDTRNSPTSTS 06-05 12:41 → EDTRNSPT 06-05 12:41 → 1NO 06-05 12:50 → CMPTRNSPT 06-05 12:53
PROVIDERS: Dermatology; Internal Medicine; Physician Assistant Medical; Student in an Organized Health Care Education/Training Program
DX: J44.0 Chronic obstructive pulmonary disease with (acute) lower respiratory infection (principal); J18.9 Pneumonia, unspecified organism; J96.10 Chronic respiratory failure, unspecified whether with hypoxia or hypercapnia; I11.0 Hypertensive heart disease with heart failure; E87.5 Hyperkalemia; I50.9 Heart failure, unspecified; E11.9 Type 2 diabetes mellitus without complications; D64.9 Anemia, unspecified; Z99.81 Dependence on supplemental oxygen; J44.1 Chronic obstructive pulmonary disease with (acute) exacerbation; Z79.4 Long term (current) use of insulin; F17.210 Nicotine dependence, cigarettes, uncomplicated; G47.33 Obstructive sleep apnea (adult) (pediatric); Z91.19 Patient's noncompliance with other medical treatment and regimen; K21.9 Gastro-esophageal reflux disease without esophagitis; M10.9 Gout, unspecified; N40.0 Benign prostatic hyperplasia without lower urinary tract symptoms; Z88.2 Allergy status to sulfonamides; R55 Syncope and collapse; Z79.891 Long term (current) use of opiate analgesic; Z79.51 Long term (current) use of inhaled steroids; Z79.52 Long term (current) use of systemic steroids; M81.0 Age-related osteoporosis without current pathological fracture; I45.10 Unspecified right bundle-branch block; Z91.81 History of falling; M06.9 Rheumatoid arthritis, unspecified; R26.9 Unspecified abnormalities of gait and mobility
CPT/HCPCS: 1NP; 36415; 36592; 71045; 82436; 87040; 87070; 87449; 87450; 87804; 87804-59; 93005; 93010; 93306; 95816; 96374; J0456; J0696; J1650; J2920; J2930; J3490; J7040; J7060; J7512

== ENCOUNTER 2017-06-06 13:37 | Inpatient (IN) | payer OTHER, MEDICARE ==
[~2017-06-06] VITALS: Ht 172.7 cm; Wt 102.5 kg
[~2017-06-06 13:37] MED LIST changes: +PREDNISONE10 M2 AD
[2017-06-06 14:12] LABS: ABSOLUTE BASOPHIL COUNT 0 /CUMM (0.0-0.2); ABSOLUTE EOSINOPHIL COUNT 0 /CUMM (0.0-0.7); ABSOLUTE GRANULOCYTE CT 11.2 /CUMM (1.4-6.5); ABSOLUTE LYMPH COUNT 0.7 /CUMM (1.2-3.4); ABSOLUTE MONOCYTE COUNT 0.2 /CUMM (0.10-0.60); BASOPHIL % 0.2 % (0.0-2.0); EOSINOPHIL % 0.2 % (0-5); GRANULOCYTE % 91.9 % (42.2-75.2); MEAN CORPUSCULAR HGB 30.4 PG (27.0-31.0); MEAN CORPUSCULAR HGB CONC 32.9 G/DL (33.0-37.0); MEAN CORPUSCULAR VOLUME 92.2 FL (80.0-94.0); MEAN PLATELET VOLUME 8.8 FL (7.4-10.4); PLATELET COUNT 141 /CUMM (130-400); RBC DISTRIBUTION WIDTH 15.1 % (11.5-14.5); RED BLOOD CELL CT 4.77 /CUMM (4.70-6.10)
--- NOTE | 2017-06-06 14:16 | ED DYSPNEA/ASTHMA COMPLAINT ---
History of Present Illness General Chief Complaint: Dyspnea (COPD, CHF, Other) Stated Complaint: SOB Source: patient, family, old records Exam Limitations: no limitations Vital Signs & Intake/Output Vital Signs & Intake/Output Vital Signs Date Time Temp Pulse Resp B/P B/P Pulse O2 O2 Flow FiO2 Mean Ox Delivery Rate 06/06 1610 96 Nasal 3.0L Cannula 06/06 1420 92 Nasal 3.5L Cannula 06/06 1342 98.0 79 20 111/76 92 Nasal 3.5L Cannula Allergies Coded Allergies: Sulfa (Sulfonamide Antibiotics) (Intermediate, RASH/HIVES 06/06/17) Reconcile Medications Albuterol Sulfate 2.5 MG/3 ML (0.083 %) VIAL.NEB 1 Vial INH/TAPAN 5 TIMES A DAY COPD (Reported) Alendronate Sodium 70 MG TABLET 1 TAB PO QTHURS BONES (Reported) in the morning, at least 30 minutes before the first food, beverage, or medication of the day Allopurinol 300 MG TABLET 1 TAB PO DAILY GOUT (Reported) Budesonide/Formoterol Fumarate (Symbicort 160-4.5 Mcg Inhaler) 160 MCG-4.5 MCG/ ACTUATION HFA.AER.AD 2 PUF INH BID PRN COPD (Reported) Calcium Carbonate/Vitamin D3 (Caltrate 600 + D Tablet) 600 MG-800 TABLET 1 TAB PO DAILY SUPPLEMENT (Reported) Cyanocobalamin (Vitamin B-12) (Cyanocobalamin Injection) 1,000 MCG/ML VIAL 1 ML IM Q30D SUPPLEMENT (Reported) Duloxetine HCl (Cymbalta) 60 MG CAPSULE.DR 1 CAP PO DAILY MENTAL HEALTH ( Reported) Folic Acid 1 MG TABLET 1 TAB PO BID SUPPLEMENT (Reported) Furosemide 40 MG TABLET 1 TAB PO DAILY WATER PILL (Reported) Insulin Glargine,Hum.rec.anlog (Lantus Solostar) 100 UNIT/ML (3 ML) INSULN.PEN 30 UNIT SC BID DIABETES (Reported) Lovastatin 40 MG TABLET 1 TAB PO QPM CHOLESTEROL (Reported) with food Methotrexate 2.5 MG TABLET 6 TAB PO QTHURS RA (Reported) Metoprolol Tartrate (Lopressor) 50 MG TABLET 1 TAB PO BID HEART (Reported) Omeprazole 20 MG CAPSULE.DR 1 CAP PO BID GI (Reported) Oxycodone HCl/Acetaminophen (Oxycodone-Acetaminophen 10-325) 10 MG-325 MG TABLET 1 TAB PO 4XDP PRN PAIN (Reported) Prednisone 10 MG TABLET 6 TAB PO DAILY COPD (Reported) Spironolactone (Aldactone) 25 MG TABLET 1 TAB PO DAILY WATER PILL (Reported) Tamsulosin HCl (Flomax) 0.4 MG CAP.ER.24H 1 CAP PO QPM PROSTATE (Reported) Tiotropium [place] (Spiriva) 18 MCG CAP.W.DEV 1 CAP INH DAILY COPD (Reported) Triage Note: PT TO ED FOR C/C OF SOB. PT RECENTLY DISCHARGED FROM HERE YESTERDAY FOR PNEUMONIA. PT REPORTS THAT HE HAS INCREASED WEAKNESS, NON PRODUCTIVE COUGH. PT'S LUNGS NOTED TO BE DIMINISHED AND WHEEZING. 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 O2 SAT 92% ON 3.5L IN TRIAGE. Triage Nurses Notes Reviewed? yes Onset: Gradual Duration: worse persistent since (1DAY) Timing: recent history Severity: moderate Activities at Onset: none Prior Episodes/Possible Cause: occasional episodes HPI: Patient is a 72-year-old with history of COPD, diabetes, recent diagnosis of pneumonia, recent hospital admission, just discharged yesterday evening from the hospital after being admitted for pneumonia. Patient reports increasing malaise and weakness. Positive increased wheezing. According to family members they had a difficult time sittinG him up at bedside this morning, called the PCP and they recommended patient come in for evaluation. She denies any fevers or chills. No chest pain or palpitations. Positive shortness of breath, more so than baseline. No other sick contacts besides being in the hospital. Has been using nebulizer treatment at home, last use this morning with little relief. Denies abdominal pain. Denies any urinary frequency or urgency or dysuria. (Sosa Fountain) Past History Travel [place] past [place] No Medical History Any Pertinent Medical History? 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 Refer elsewhere in this and other documents for additional details. According to the patient's report he was asymptomatic and functionally unrestricted by his back prior to this injury. He did have functional limitation and restriction because of his other medical conditions. Refer to other inpatient and outpatient medical records for details regarding pre-injury functional status and deficits. History of MRSA: No History of VRE: No History of CDIFF: No Surgical History Surgical History: N (jjjg) Psychosocial History Who do you live with Spouse Services at Home Nursing, Oxygen (4 litres) What is your primary language Omani Tobacco Use: Current Daily Use Daily Tobacco Use Amount/Type: => 5 Cigarettes daily ETOH Use: denies use Illicit Drug Use: denies illicit drug use Family History Family History, If Any: MOTHER FHx: cancer Hx Contributory? No (Sosa Fountain) Review of Systems Review of Systems Constitutional: Reports: malaise, weakness. Comments Review of systems: See HPI, All other systems negative. Constitutional, no chills fever or weight loss HEENT: No visual changes no sore throat Cardiovascular: No chest pain ,palpitation , orthopnea or ankle swelling Skin, no jaundice no rashes Respiratory: NO hemoptysis GI: No nausea no vomiting : No dysuria No hematuria Muscle skeletal: no back pain, no neck pain, Neurologic: No numbness no confusion, no headaches Psych: No stress anxiety or depression,. Heme/endocrine: No bruising no bleeding no polyuria or polydipsia Immunology: No splenectomy or history of AIDS (Sosa Fountain) Physical Exam Physical Exam General Appearance: well developed/nourished, no apparent distress, alert, awake , comfortable Respiratory: rhonchi, wheezing Comments: OBSESE person in no acute distress HEENT:Pupils equally round and reactive to light and accommodation. Nose is atraumatic. External auditory canal and Tympanic membranes clear. Pharynx normal. No swelling or edema. Dry oral mucosa. Dry lips. Neck: Supple, no lymphadenopathy, normal range of motion without pain or tenderness Back: NontendeR Cardiovascular: Regular rate and rhythms no murmurs rubs or gallops, normal JVP Respiratory: Chest nontender. No respiratory distress.breath sounds clear to auscultation bilaterally Abdomen: Soft, OBESE, nontender nondistended, no appreciable organomegaly. Normal bowel sounds. No ascites Extremity: No edema, no calf tenderness to palpation, normal and equal pulses. MUSCULAR STRENGTH IN UPPER AND LOWER EXT 5/5 WHILE LAYING STRETCHER. ASSIT OF 2 TO HELP PT SIT UP IN BED. Neuro: Alert oriented x3, motor sensory normal, cranial nerves II through XII grossly intact. Skin: No appreciable rash on exposed skin, skin is warm and dry. Psych: Mood and affect is normal, memory and judgment is normal. Core Measures ACS in differential dx? Yes CVA/TIA Diagnosis No Sepsis Present: No Sepsis Focused Exam Completed? No (Kvng PRITCHARD,Sosa) Progress Differential Diagnosis: asthma, AMI, bronchitis, costochondritis, CHF, COPD, musculoskeletal pain, pneumonia Plan of Care: Orders Procedure Date/time Status Heart Healthy Diet 06/06 D Active Patient Data 06/[address] in observation 06/06 1837 Active ARTERIAL BLOOD GAS (GEN) 06/06 1550 Active Add-on Test (ER Only) 06/06 1550 Active RAPID VIRAL INFLUENZA A 06/06 1436 Complete URINALYSIS 06/06 1436 Complete Add-on Test (ER Only) 06/06 1432 Active FingerStick- Glucose 06/06 1432 Active SERUM OSMOLALITY 06/06 1358 Complete B-TYPE NATRIURETIC PEP (BNP) 06/06 1358 Complete ACETONE 06/06 1358 Complete TROPONIN LEVEL 06/06 1347 Complete COMPREHENSIVE METABOLIC PANEL 06/06 1347 Complete CBC WITHOUT DIFFERENTIAL 06/06 1347 Complete EKG 06/06 1347 Active Current Medications Sig/Lakisha Start time Last Medication Dose Stop Time Status Admin Magnesium Sulfate 1 GM ONCE ONE 06/06 1545 AC 06/06 (Mag Sulfate in D5) 06/06 1944 1628 Dextrose/Water 100 ML (D5W) Laboratory Tests 06/06/17 1600: pH 7.36, pCO2 69 *H, pO2 100, HCO3 39 H, ABG O2 Sat (Measured) 96.0, P-50 (Temp Corrected) N, Carboxyhemoglobin 0.4 L, O2 Concentration % 3L, Temperature 98.0, O2 Delivery Method NC, Phlebotomy Draw Site RIGHT RADIAL 06/06/17 1440: Urine Color YEL, Urine Clarity CLEAR, Urine pH 6.0, Ur Specific Gerlach 1.020, Urine Protein NEG, Urine Ketones NEG, Urine Nitrite NEG, Urine Bilirubin NEG, Urine Urobilinogen 0.2, Ur Leukocyte Esterase NEG, Ur Microscopic EXAM NOT REQUIRED, Urine Hemoglobin NEG, Urine Glucose >=1000 H 06/06/17 1358: Anion Gap 9, Estimated GFR > 60, BUN/Creatinine Ratio 32.9 H, Glucose 376 H, Serum Osmolality 314 H, Calcium 9.2, Total Bilirubin 0.8, AST 38, ALT 70, Alkaline Phosphatase 57, Troponin I < 0.01, [id number] Pept 275 H, Total Protein 6.6, Albumin 3.7, Globulin 2.9, Albumin/Globulin Ratio 1.3, CBC w Diff MAN DIFF ORDERED, RBC 4.77, MCV 92.2, MCH 30.4, MCHC 32.9 L, RDW 15.1 H, MPV 8.8, Gran % 91.9 H, Lymphocytes % 5.7 L, Monocytes % 2.0, Eosinophils % 0.2, Basophils % 0.2, Absolute Granulocytes 11.2 H, Segmented Neutrophils 86 H, Absolute Lymphocytes 0.7 L, Lymphocytes 10 L, Monocytes 3, Absolute Monocytes 0.2, Absolute Eosinophils 0, Absolute Basophils 0, Metamyelocytes 1, Platelet Estimate VERIFIED BY SMEAR, Basophilic Stippling 1+, Anisocytosis 1+, Acetone Level NEGATIVE Microbiology 06/06 1451 NASOPHARYN: Influenza Virus A & B Rapid Smear - COMP 06/06/2017 6:31:07 PM patient was more awake and alert at this time after decreased oxygen to 2 L nasal cannula. Patient was initially it retaining bicarbonate on initial ABG. Patient's pH is normal eyes, patient likely compensating. Since patient is more awake and alert, respiratory recommending we keep patient at lower nasal cannula satting and recheck ABG later this evening or early tomorrow morning. Discussed Dr. Woods, he agrees to plan. Patient admitted for COPD exacerbation. Patient eating dinner in no acute distress at this time. Patient may need rehabilitation placement secondary to weakness, PT consultation in the morning. Diagnostic Imaging: Viewed by Me: Radiology Read. Discussed w/RAD: Radiology Read. Radiology Impression: PATIENT: JANETTE PAEZ PRESENT AGE: 72 PATIENT ACCOUNT NO: [id number] : 43 LOCATION: [facility] ORDERING PHYSICIAN: Sosa PRITCHARD SERVICE DATE: 04/26/18-1432 EXAM TYPE: RAD - XRY-CHEST XRAY, TWO VIEWS EXAMINATION: XR CHEST CLINICAL INFORMATION: Worsening pneumonia. COMPARISON: 05/31/2017 TECHNIQUE: 2 views of the chest were obtained. FINDINGS: Compared to the prior study, there has been some improvement with a decrease in the patchy density seen at the lung bases, especially on the right. No effusions are present. There is mild cardiac enlargement. No evidence of CHF. IMPRESSION: Improving appearances at lung bases, especially on the right. DICTATED BY: Robel Khan MD DATE/TIME DICTATED:06/06/171458 PELLETIZER:FINA DATE/TIME TRANSCRIBED:06/06/171458 CONFIDENTIAL, DO NOT COPY WITHOUT APPROPRIATE AUTHORIZATION. <Electronically signed in Other Vendor System> SIGNED BY: Robel Khan MD 06/06/17 1604 Initial ED EKG: SINUS RHYTHM AT 74 BPM, RIGHT BUNDLE BRANCH BLOCK Prior EKG: unchanged (Sosa Fountain) Departure Departure Time of Disposition: 1823 Disposition: STILL A PATIENT Condition: Stable Clinical Impression Primary Impression: COPD exacerbation Referrals: Tanmay Zee MD (PCP/Family) Departure Forms: Customer Survey General Discharge Information Observation Note Spoke With: Leonel Cortez MD Physician Advisor Notified: MITCHEL LOZOYA DO Place Patient In: Non-ED OBS Care Area Rationale for Observation: My rational for observation is as follows . Patient requiring serial DuoNeb treatments, pulmonology consultation, PT evaluation secondary to weakness, may require rehabilitation placement. Discharge at this time is medically harmful. Repeat ABG to make sure patient is not retaining/ to make sure pHs stabilized stilL. If symptoms worsen patient may require BiPAP. (Sosa Fountain) PA/MUD JACK NOZZLE WORKER Co-Sign Statement Statement: ED Attending supervision documentation- [X] I saw and evaluated the patient. I have also reviewed all the pertinent lab results and diagnostic results. I agree with the findings and the plan of care as documented in the PA's/MUD JACK NOZZLE WORKER's documentation. Patient presents for evaluation of worsening shortness of breath after being discharged from the hospital early this morning. Physical examination reveals diffuse end expiratory wheezing and diminished air entry. [] I have reviewed the ED Record and agree with the PA's/MUD JACK NOZZLE WORKER's documentation. [] Additions or exceptions (if any) to the PAs/MUD JACK NOZZLE WORKER's note and plan are summarized below: [] (Peggy TINEO,Mitchel Faye) Critical Care Note Critical Care Note Critical Care Time: non-applicable (Kvng PRITCHARD,Sosa)
[2017-06-06 14:27] LABS: WHITE BLOOD CELL COUNT 12.2 /CUMM (4.8-10.8)
--- NOTE | 2017-06-06 16:04 | RADIOLOGY REPORT ---
EXAMINATION: XR CHEST CLINICAL INFORMATION: Worsening pneumonia. COMPARISON: 05/31/2017 TECHNIQUE: 2 views of the chest were obtained. FINDINGS: Compared to the prior study, there has been some improvement with a decrease in the patchy density seen at the lung bases, especially on the right. No effusions are present. There is mild cardiac enlargement. No evidence of CHF. IMPRESSION: Improving appearances at lung bases, especially on the right.
--- NOTE | 2017-06-06 19:57 | History & Physical ---
Jorgito TINEO,[facility] 06/06/171953: General Information and HPI MD Statement: I have seen and personally examined JANETTE PAEZ and documented this H&P. The patient is a 72 year old M who presented with a patient stated chief complaint of [Shortness of breath]. Source of Information: patient, old records Exam Limitations: no limitations History of Present Illness: Patient is 72 year old male past medical history of BOB noncompliant with CPAP, DM, RA on prednisone 10 mg, GERD, gout, BPH, HTN, HFpEF, and COPD on 3.5 L of oxygen, recently discharged yesterday/ after he was managed for presyncope and community-acquired pneumonia with antibiotic, discharged on long taper steroid. Patient presented to ED with chief complaint of shortness of breath. He said after discharge he continued to feel weak and fatigued, was coughing a lot overnight, had some Robitussin that helped a little, shortness of breath persist despite Symbicort and nebulizers. In the morning patient will try to set down on the chair with his and had difficulty breathing, called his PCP who recommended him to come to ED for evaluation. Patient reported taking 2 tabs of prednisone yesterday however he should take 6 mg. He continued to use his oxygen but no CPAP. Used all of his inhalers and nebulizers. Patient denied any chest pain, palpitation, dizziness or blurry vision, abdominal pain, nausea or vomiting, diarrhea or constipation. Allergies/Medications Allergies: Coded Allergies: Sulfa (Sulfonamide Antibiotics) (Intermediate, RASH/HIVES 06/06/17) Home Med list Albuterol Sulfate 2.5 MG/3 ML (0.083 %) VIAL.NEB 1 Vial INH/TAPAN 5 TIMES A DAY COPD (Reported) Alendronate Sodium 70 MG TABLET 1 TAB PO QTHURS BONES (Reported) in the morning, at least 30 minutes before the first food, beverage, or medication of the day Allopurinol 300 MG TABLET 1 TAB PO DAILY GOUT (Reported) Budesonide/Formoterol Fumarate (Symbicort 160-4.5 Mcg Inhaler) 160 MCG-4.5 MCG/ ACTUATION HFA.AER.AD 2 PUF INH BID PRN COPD (Reported) Calcium Carbonate/Vitamin D3 (Caltrate 600 + D Tablet) 600 MG-800 TABLET 1 TAB PO DAILY SUPPLEMENT (Reported) Cyanocobalamin (Vitamin B-12) (Cyanocobalamin Injection) 1,000 MCG/ML VIAL 1 ML IM Q30D SUPPLEMENT (Reported) Duloxetine HCl (Cymbalta) 60 MG CAPSULE.DR 1 CAP PO DAILY MENTAL HEALTH ( Reported) Folic Acid 1 MG TABLET 1 TAB PO BID SUPPLEMENT (Reported) Furosemide 40 MG TABLET 1 TAB PO DAILY WATER PILL (Reported) Insulin Glargine,Hum.rec.anlog (Lantus Solostar) 100 UNIT/ML (3 ML) INSULN.PEN 30 UNIT SC BID DIABETES (Reported) Lovastatin 40 MG TABLET 1 TAB PO QPM CHOLESTEROL (Reported) with food Methotrexate 2.5 MG TABLET 6 TAB PO QTHURS RA (Reported) Metoprolol Tartrate (Lopressor) 50 MG TABLET 1 TAB PO BID HEART (Reported) Omeprazole 20 MG CAPSULE.DR 1 CAP PO BID GI (Reported) Oxycodone HCl/Acetaminophen (Oxycodone-Acetaminophen 10-325) 10 MG-325 MG TABLET 1 TAB PO 4XDP PRN PAIN (Reported) Prednisone 10 MG TABLET 6 TAB PO DAILY COPD (Reported) Spironolactone (Aldactone) 25 MG TABLET 1 TAB PO DAILY WATER PILL (Reported) Tamsulosin HCl (Flomax) 0.4 MG CAP.ER.24H 1 CAP PO QPM PROSTATE (Reported) Tiotropium [place] (Spiriva) 18 MCG CAP.W.DEV 1 CAP INH DAILY COPD (Reported) Past History Travel History Traveled to Court past 21 day No Medical History Neurological: NONE EENT: NONE Cardiovascular: CHF, hypertension Respiratory: COPD, obstructive sleep apnea, with ongoing tobacco use disorder 02 DEPENDANT Gastrointestinal: NONE Hepatic: NONE Renal: benign prost hyperplasia Musculoskeletal: rheumatoid arthritis Psychiatric: NONE Endocrine: INSULIN DEPENDENT DIABETIC TYPE II Blood Disorders: NONE Cancer(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 Refer elsewhere in this and other documents for additional details. According to the patient's report he was asymptomatic and functionally unrestricted by his back prior to this injury. He did have functional limitation and restriction because of his other medical conditions. Refer to other inpatient and outpatient medical records for details regarding pre-injury functional status and deficits. History of MRSA: No History of VRE: No History of CDIFF: No Surgical History Surgical History: N (jjjg) Past Family/Social History Family History Relations & Conditions if any MOTHER FHx: cancer Psychosocial History Services at Home: Nursing, Oxygen (4 litres) ETOH Use: denies use Illicit Drug Use: denies illicit drug use Functional Ability Ambulation: independent, Ambulatory distance was limited by pulmonary condition and not by any spinal symptoms prior to this injury. Pre-injury functional ability is detailed in "Other Medical Hx" section. Review of Systems Review of Systems Constitutional: Reports: see HPI, malaise, weakness. Denies: chills, fever. EENTM: Reports: nasal congestion. Denies: blurred vision, visual changes. Cardiovascular: Denies: chest pain, edema, orthopena, palpitations, syncope. Respiratory: Reports: cough, short of breath, sputum production. Denies: hemoptysis, orthopnea. GI: Denies: abdominal pain, bloating, constipation, diarrhea, nausea, vomiting. Genitourinary: Denies: discharge, dysuria, frequency, hematuria. Musculoskeletal: Denies: back pain, gout, joint pain, joint swelling. Skin: Denies: lesions, rash. Neurological/Psychological: Denies: confusion, headache, numbness. Hematologic/Endocrine: Denies: bruising, bleeding, polyuria. Exam & Diagnostic Data Last 24 Hrs of Vital Signs/I&O Vital Signs Date Time Temp Pulse Resp B/P B/P Pulse O2 O2 Flow FiO2 Mean Ox Delivery Rate 06/07 0645 97.9 76 22 108/70 90 Nasal 3.0L Cannula 06/07 0344 70 92 06/07 0219 71 90 06/07 0000 Nasal 2.0L Cannula 06/06 2314 88 91 06/065 97.8 84 22 118/68 90 Nasal 3.0L Cannula 06/064 84 118/68 06/06 2241 84 118/06/06 92 Nasal 2.0L Cannula 06/06 2116 Nasal 2.0L Cannula 06/06 1954 95 Nasal 2.0L Cannula 06/06 1953 97.8 85 20 118/74 94 Nasal 2.0L Cannula 06/06 1628 98.3 81 22 114/79 93 Nasal 2.0L Cannula 06/06 1610 96 Nasal 3.0L Cannula 06/06 1420 92 Nasal 3.5L Cannula 06/06 1342 98.0 79 20 111/76 92 Nasal 3.5L Cannula Intake & Output 06/07 0800 06/07 0000 06/06 1600 Intake Total 200 550 Output Total Balance 200 550 Intake, IV 300 Intake, Oral 200 250 Patient 113.398 kg 113.398 kg Weight Weight Reported by Patient Measurement Method Physical Exam General Appearance Alert, Oriented X3, Cooperative, Mild Distress Skin No Rashes Skin Temp/Moisture Exam: Warm/Dry HEENT Atraumatic, PERRLA, EOMI, Mucous Membr. moist/pink Neck Supple, No JVD Cardiovascular Regular Rate, Normal S1, Normal S2, No Murmurs Lungs decrease air entery all over very faint wheeze expiratory Abdomen Normal Bowel Sounds, Soft, No Tenderness, distended Neurological Normal Speech, Strength at 5/5 X4 Ext, Normal Tone, Sensation Intact, Cranial Nerves 3-12 NL, Reflexes 2+ Extremities No Clubbing, No Cyanosis, No Edema, Normal Pulses Assessment/Plan Assessment: Patient is 72 year old male past medical history of BOB noncompliant with CPAP, DM, RA on prednisone 10 mg, GERD, gout, BPH, HTN, HFpEF, and COPD on 3.5 L of oxygen, recently discharged yesterday/ after he was managed for presyncope and community-acquired pneumonia. Patient finished 6 days of Abx and discharged on taper predinsone, supposed to take 60 mg s first dose bt instead took only 2 tabs. Problem list #Acute on chronic hypercapnic respiratory failure #COPD excerbation #Low probabilty for PE no hypoxemi or tachycardia #BOB not on CPAP #DM #HTN, HLP #Possible silent VT given DM will obtain second set of trops and EKG Plan Observe to GM Vital Q shift TRC Nebs schedled and PRN Cont. home inhalar O2 suppl. baseline 3.5L CPAP Soul medrol 40 mg BID Will give 2 doses of Ceftriaxone and azithro Trpos and EKG neg x1, will obtain another set Accu check, levemir 30 BID and NSS Obatin Mg and phos Obtain HGA1C Consider repeat ABG in am Continue home med Avoid narcotics DVT prph Lovonex Code FULL As Ranked By This Provider Problem List: 1. COPD exacerbation Core Measures/Misc (10/28) Acute Coronary Syndrome ACS Diagnosis: No Congestive Heart Failure Congestive Heart Failure Diagnosis No Cerebrovascular Accident CVA/TIA Diagnosis: No VTE (View Protocol) VTE Risk Factors Age>40 No Mechanical VTE Prophylaxis d/t N/A MechProphylax Ordered No VTE Pharm Prophylaxis d/t NA PharmProphylax ordered Sepsis (View protocol) Sepsis Present: No Leonel Cortez 06/07/17 0437: Attending MD Review Statement Attending Statement Attending MD Statement: examined this patient, discuss w/resident/PA/HANGER OFF, agreed w/resident/PA/HANGER OFF, reviewed EMR data (avail), reviewed images, amended to note Attending Assessment/Plan: CC: Shortness of breath, lethargy PMH: COPD on 3.5 L nasal cannula, BOB on CPAP, DM, HTN, BPH, rheumatoid arthritis, HFpEF, gout, GERD Patient was admitted from May 31 to June 05 for pneumonia and COPD exacerbation. He was discharged on prolonged taper of prednisone, completed 5 days of antibiotics in hospital. After discharge patient took lower dose of prednisone than what he was prescribed. After discharge he felt progressively weak, lethargic, worsening shortness of breath, he could not sleep the whole night with the cough and expectoration, by the morning he was very lethargic and could not even get up from the chair so I decided to bring him back to the hospital. He did not have any fever spike while at home, denies any chest pain or chest tightness. He has been having multiple presyncopal episodes at home of unclear etiology otherwise complete ROS unremarkable. Patient sometimes uses CPAP but he states that now it's connections are broken and he needs a new machine so he was not using CPAP in last few days before hospitalization. Vitals: Tmax 98.3, pulse 79, RR 20, blood pressure 111/76, saturating 92% on 3.5 L nasal cannula. On exam: A O 3, cooperative, no acute distress, neck supple, JVD normal, no lymphadenopathy, mucosa moist, no focal neurological deficit, trace edema, no obvious skin rashes or inflammation CVS: S1-S2, RRR. RS: Diffuse wheezing bilaterally, decreased air entry. Abdomen: Soft, NT, ND, bowel sounds present. CXR: Improving appearances at lung bases, especially on the right. Assessment and plan Patient came back to hospital after recent discharge for persistent cough, shortness of breath, lethargy. Patient did not comply with prescribed medication and to lesser dose of steroids at home. He was unaware of this, according to him his sister takes care of him but his is sick with similar symptoms so his sister has been taking care of his and could not be attention to details of his medication. He appears to have persistent COPD exacerbation secondary to recent pneumonia. We will place him in observation for IV steroids, nebulization treatment and continue 2 more days of antibiotics and PT evaluation. + COPD exacerbation + Recently treated pneumonia + History of BOB on CPAP, DM, HTN, BPH, rheumatoid arthritis, HFpEF, gout, GERD - Place in observation on general medicine - Continue IV methylprednisolone 40 mg twice a day - Continue IV ceftriaxone and azithromycin for 2 more days - Continue CPAP overnight - TRC nebs - Mucinex - Continue O2 by nasal cannula - Repeat ABG in a.m. - Serial troponins and ECG - Informed carry out clerk about patient being here - Continue on his home medications
[2017-06-06 23:05] VITALS: BP 118/68
[2017-06-07 06:45] VITALS: BP 108/70
--- NOTE | 2017-06-07 08:02 | PN-Observation ---
Observation Note Observation Note _ I have personally examined JANETTE PAEZ. him disposition is uncertain at this time. Before a determination can be made, he requires continued observation for the following reasons [COPD, unsteady gait]. Assessment/Plan Medical Assessment: 72 year old male past medical history of BOB noncompliant with CPAP, DM, RA on prednisone 10 mg, GERD, gout, BPH, HTN, HFpEF, and COPD on 3.5 L of oxygen, recently discharged yesterday/ after he was managed for presyncope and community-acquired pneumonia, patient came in for weakness and COPD exacerbation. Assessment and plan 1. Physical deconditioning 2. COPD exacerbation * Patient is being treated for COPD exacerbation with IV steroids. We will continue the same. Patient didn't take his antibiotics regularly and hence decided to give him 2 doses of ceftriaxone. Patient today complained of 5 x 10 midsternal pain with no radiation and not relieved by rest. Stat EKG and troponin were taken, which was negative. We'll continue monitoring. Patient is on 3 L of oxygen. At baseline at home patient uses 2.5 L. * Physical deconditioning-patient has unstable gait. Patient uses walker at home. Physical therapy on board. Patient is willing to go to short-term rehabilitation if needed. Problem List: 1. COPD exacerbation 2. Acute on chronic respiratory failure with hypercapnia 3. Physical deconditioning Subjective Follow-up For: Physical deconditioning, COPD exacerbation Complaints: shortness of breath Review of Systems Constitutional: Reports: no symptoms, see HPI. Cardiovascular: Reports: no symptoms. Respiratory: Reports: short of breath. Gastrointestinal: Reports: no symptoms. Genitourinary: Reports: no symptoms. Objective Last 24 Hrs of Vital Signs/I&O Vital Signs Date Time Temp Pulse Resp B/P B/P Pulse O2 O2 Flow FiO2 Mean Ox Delivery Rate 06/07 1421 97.0 84 20 112/80 90 Nasal 3.0L Cannula 06/07 1230 94 Nasal 3.5L Cannula 06/07 1055 Nasal 2.0L Cannula 06/07 1022 98.2 86 20 122/60 90 Nasal 2.0L Cannula 06/07 1010 80 122/60 06/07 0800 92 Nasal 2.5L Cannula 06/07 0735 93 Nasal 2.0L Cannula 06/07 0645 97.9 76 22 108/70 90 Nasal 3.0L Cannula 06/07 0344 70 92 06/07 0219 71 90 06/07 0000 Nasal 2.0L Cannula 06/06 2314 88 91 06/06 2305 97.8 84 22 118/68 90 Nasal 3.0L Cannula 06/06 2244 84 118/68 06/06 2242 84 118/68 06/062 92 Nasal 2.0L Cannula 06/06 2116 Nasal 2.0L Cannula 06/06 1954 95 Nasal 2.0L Cannula 06/06 1953 97.8 85 20 118/74 94 Nasal 2.0L Cannula 06/06 1628 98.3 81 22 114/79 93 Nasal 2.0L Cannula 06/06 1610 96 Nasal 3.0L Cannula Intake & Output 06/07 1600 06/07 0800 06/07 0000 Intake Total 200 550 Output Total 600 Balance -600 200 550 Intake, IV 300 Intake, Oral 200 250 Number 1 Bowel Movements Output, Urine 600 Patient 250 lb Weight Physical Exam General Appearance: Alert, Oriented X3, Cooperative, No Acute Distress Cardiovascular: Regular Rate, Normal S1, Normal S2, No Murmurs Lungs: b/l wheeze Abdomen: Soft, No Tenderness, No Hepatospenomegaly Neurological: Strength at 5/5 X4 Ext, Normal Tone, Sensation Intact Current Medications: Current Medications Sig/Lakisha Start time Last Medication Dose Route Stop Time Status Admin Acetaminophen 650 MG Q6P PRN 06/06 2014 AC PO Albuterol Sulfate 3 ML EVERY 4 HRS/AWAKE 06/06 2359 AC 06/07 INH 1201 Albuterol Sulfate 3 ML 5 TIMES A DAY 06/06 2100 CAN INH Albuterol Sulfate 3 ML Q6 PRN 06/06 2044 CAN INH Albuterol Sulfate 3 ML Q6 06/06 2041 CAN INH Albuterol Sulfate 3 ML ONCE ONE 06/06 1545 DC 06/06 INH 06/06 1546 1556 Allopurinol 300 MG DAILY 06/07 0900 AC 06/07 PO 1010 Atorvastatin Calcium 10 MG 1700 06/07 1700 AC PO Azithromycin 500 MG DAILY 06/06 2021 DC 06/07 Sodium Chloride 250 ML IV 06/07 0959 1016 Budesonide/ 2 PUF BID PRN 06/06 204 AC 06/07 Formoterol Fumarate INH 1028 Calcium Carbonate 500 MG ONCE ONE 06/07 1030 DC 06/07 PO 06/07 1031 1039 Ceftriaxone Sodium 1,000 MG DAILY 06/07 2023 DC 06/07 IV 06/07 0901 1015 Duloxetine HCl 60 MG DAILY 06/07 09 AC 06/07 PO 1010 Enoxaparin Sodium 40 MG DAILY 06/06 2017 AC 06/07 SC 1011 Furosemide 40 MG DAILY 06/07 09 AC 06/07 PO 1010 Insulin Aspart 0 TIDAC 06/07 0800 DC SC Insulin Aspart 0 AT BEDTIME 06/06 214 AC SC Insulin Aspart 0 TIDAC 06/06 2115 AC 06/07 SC 1234 Insulin Detemir 30 UNITS BID 06/06 2100 AC 06/07 SC 1015 Ipratropium [place] 2.5 ML ONCE ONE 06/06 1545 DC 06/06 INH 06/06 1546 1556 Magnesium Sulfate 1 GM ONCE ONE 06/06 1545 DC 06/06 Dextrose/Water 100 ML IV 06/06 1944 1628 Methylprednisolone 40 MG Q12 06/06 2099 06/07 IV 1016 Methylprednisolone 0 .STK-MED ONE 06/06 1823 DC .ROUTE Methylprednisolone 125 MG ONCE ONE 06/06 1730 DC 06/06 IV 06/06 1731 1810 Metoprolol Tartrate 50 MG BID 06/06 2100 AC 06/07 PO 1010 Omeprazole 20 MG BID 06/06 2099 AC 06/07 PO 1010 Spironolactone 25 MG DAILY 06/07 09 AC 06/07 PO 1010 Tamsulosin HCl 0.4 MG QPM 06/06 2099 AC 06/06 PO 2242 Tiotropium [place] 1 PUF DAILY 06/07 2039 AC INH Last 24 Hrs of Labs/Mics: Laboratory Tests 06/07/17 1210: pH 7.44, pCO2 59 H, pO2 60 L, HCO3 39 H, ABG O2 Sat (Measured) 88.0 L, Carboxyhemoglobin 0.8 L, O2 Concentration % 2.5L, O2 Delivery Method NC, Phlebotomy Draw Site LEFT RADIAL 06/07/17 1030: Troponin I < 0.01 06/07/17 0638: Anion Gap 10, Estimated GFR > 60, BUN/Creatinine Ratio 38.6 H, Hemoglobin A1c 8.5 H, Phosphorus 3.1, Magnesium 2.3, CBC w Diff NO MAN DIFF REQ, RBC 4.78, MCV 92.0, MCH 29.6, MCHC 32.1 L, RDW 14.8 H, MPV 8.8, Gran % 92.1 H, Lymphocytes % 6.3 L, Monocytes % 1.6 L, Eosinophils % 0, Basophils % 0, Absolute Granulocytes 10.1 H, Absolute Lymphocytes 0.7 L, Absolute Monocytes 0.2, Absolute Eosinophils 0, Absolute Basophils 0 06/07/17 0110: Troponin I < 0.01 06/06/17 1600: pH 7.36, pCO2 69 *H, pO2 100, HCO3 39 H, ABG O2 Sat (Measured) 96.0, P-50 (Temp Corrected) N, Carboxyhemoglobin 0.4 L, O2 Concentration % 3L, Temperature 98.0, O2 Delivery Method NC, Phlebotomy Draw Site RIGHT RADIAL Microbiology 06/06 1451 NASOPHARYN: Influenza Virus A & B Rapid Smear - COMP
[2017-06-07 08:23] LABS: ABSOLUTE BASOPHIL COUNT 0 /CUMM (0.0-0.2); ABSOLUTE EOSINOPHIL COUNT 0 /CUMM (0.0-0.7); ABSOLUTE GRANULOCYTE CT 10.1 /CUMM (1.4-6.5); ABSOLUTE LYMPH COUNT 0.7 /CUMM (1.2-3.4); ABSOLUTE MONOCYTE COUNT 0.2 /CUMM (0.10-0.60); BASOPHIL % 0 % (0.0-2.0); EOSINOPHIL % 0 % (0-5); GRANULOCYTE % 92.1 % (42.2-75.2); MEAN CORPUSCULAR HGB 29.6 PG (27.0-31.0); MEAN CORPUSCULAR HGB CONC 32.1 G/DL (33.0-37.0); MEAN PLATELET VOLUME 8.8 FL (7.4-10.4); PLATELET COUNT 135 /CUMM (130-400); RBC DISTRIBUTION WIDTH 14.8 % (11.5-14.5); RED BLOOD CELL CT 4.78 /CUMM (4.70-6.10); WHITE BLOOD CELL COUNT 10.9 /CUMM (4.8-10.8)
--- NOTE | 2017-06-07 10:14 | PN- Att Addend ---
Attending Addendum Attending Brief Note Patient seen and examined, still feeling short of breath. Patient was discharged 2 days ago when he was admitted with acute COPD, presyncope and orthostasis. This time he went home and continued to feel short of breath. Now placed on gen med OBS with Acute COPD exacerbation again. Requiring 3 lits of O2. Vital Signs Date Time Temp Pulse Resp B/P B/P Pulse O2 O2 Flow FiO2 Mean Ox Delivery Rate 06/07 0735 93 Nasal 2.0L Cannula 06/07 0645 97.9 76 22 108/70 90 Nasal 3.0L Cannula 06/07 0344 70 92 06/07 0219 71 90 06/07 0000 Nasal 2.0L Cannula 06/06 2314 88 91 06/06 2305 97.8 84 22 118/68 90 Nasal 3.0L Cannula 06/06 2244 84 118/68 06/06 2242 84 11806/06 92 Nasal 2.0L Cannula 06/06 2116 Nasal 2.0L Cannula 06/06 1954 95 Nasal 2.0L Cannula 06/06 1953 97.8 85 20 118/74 94 Nasal 2.0L Cannula 06/06 1628 98.3 81 22 114/79 93 Nasal 2.0L Cannula 06/06 1610 96 Nasal 3.0L Cannula 06/06 1420 92 Nasal 3.5L Cannula 06/06 1342 98.0 79 20 111/76 92 Nasal 3.5L Cannula on exam; Patient was sleepy but then woke up. NAD. cv; s1, s2, rrr resp; clear abd; soft, nt, bs+ ext; no edema Laboratory Tests 06/07 06/07 06/06 0638 0110 1600 Blood Gas pH (7.35 - 7.45 PH) 7.36 pCO2 (35 - 45 TORR) 69 *H pO2 (80 - 100 TORR) 100 HCO3 (21 - 28 MEQ/L) 39 H ABG O2 Sat (Measured) (>96.0 %) 96.0 P-50 (Temp Corrected) N Carboxyhemoglobin (1.5 - 5.0 %) 0.4 L O2 Concentration % 3L Temperature (97.0 - 100.0 FARH) 98.0 O2 Delivery Method NC Chemistry Sodium (137 - 145 mmol/L) 141 Potassium (3.5 - 5.1 mmol/L) 4.1 Chloride (98 - 107 mmol/L) 89 L Carbon Dioxide (22 - 30 mmol/L) 42 H Anion Gap (5 - 16) 10 BUN (9 - 20 mg/dL) 27 H Creatinine (0.7 - 1.2 mg/dL) 0.7 Estimated GFR (>60 ml/min) > 60 BUN/Creatinine Ratio (7 - 25 %) 38.6 H Hemoglobin A1c (4.2 - 5.8 %) 8.5 H Phosphorus (2.5 - 4.5 mg/dL) 3.1 Magnesium (1.6 - 2.3 mg/dL) 2.3 Troponin I (<0.11 ng/ml) < 0.01 Hematology CBC w Diff Pending WBC Pending RBC Pending Hgb Pending Hct Pending MCV Pending MCH Pending MCHC Pending RDW Pending Plt Count Pending MPV Pending Miscellaneous Phlebotomy Draw Site RIGHT RADIAL 06/06 1440 Urines Urine Color (YEL,AMB,STR) YEL Urine Clarity (CLEAR) CLEAR Urine pH (5.0 - 8.0) 6.0 Ur Specific [place] (1.001 - 1.035) 1.020 Urine Protein (NEG,<30 MG/DL) NEG Urine Ketones (NEG) NEG Urine Nitrite (NEG) NEG Urine Bilirubin (NEG) NEG Urine Urobilinogen (0.1 - 1.0 EU/dl) 0.2 Ur Leukocyte Esterase (NEG) NEG Ur Microscopic EXAM NOT REQUIRED Urine Hemoglobin (NEG) NEG Urine Glucose (N MG/DL) >=1000 H 06/06 1358 Chemistry Sodium (137 - 145 mmol/L) 140 Potassium (3.5 - 5.1 mmol/L) 4.7 Chloride (98 - 107 mmol/L) 90 L Carbon Dioxide (22 - 30 mmol/L) 41 H Anion Gap (5 - 16) 9 BUN (9 - 20 mg/dL) 23 H Creatinine (0.7 - 1.2 mg/dL) 0.7 Estimated GFR (>60 ml/min) > 60 BUN/Creatinine Ratio (7 - 25 %) 32.9 H Glucose (65 - 99 mg/dL) 376 H Serum Osmolality (285 - 295 MOSM/KG) 314 H Calcium (8.4 - 10.2 mg/dL) 9.2 Total Bilirubin (0.2 - 1.3 mg/dL) 0.8 AST (17 - 59 U/L) 38 ALT (21 - 72 U/L) 70 Alkaline Phosphatase (< 127 U/L) 57 Troponin I (<0.11 ng/ml) < 0.01 [id number] Pept (<125 pg/mL) 275 H Total Protein (6.3 - 8.2 g/dL) 6.6 Albumin (3.5 - 5.0 g/dL) 3.7 Globulin (1.9 - 4.2 gm/dL) 2.9 Albumin/Globulin Ratio (1.1 - 2.2 %) 1.3 Hematology CBC w Diff MAN DIFF ORDERED WBC (4.8 - 10.8 /CUMM) 12.2 H RBC (4.70 - 6.10 /CUMM) 4.77 Hgb (14.0 - 18.0 G/DL) 14.5 Hct (42 - 52 %) 44.0 MCV (80.0 - 94.0 FL) 92.2 MCH (27.0 - 31.0 PG) 30.4 MCHC (33.0 - 37.0 G/DL) 32.9 L RDW (11.5 - 14.5 %) 15.1 H Plt Count (130 - 400 /CUMM) 141 MPV (7.4 - 10.4 FL) 8.8 Gran % (42.2 - 75.2 %) 91.9 H Lymphocytes % (20.5 - 51.1 %) 5.7 L Monocytes % (1.7 - 9.3 %) 2.0 Eosinophils % (0 - 5 %) 0.2 Basophils % (0.0 - 2.0 %) 0.2 Absolute Granulocytes (1.4 - 6.5 /CUMM) 11.2 H Segmented Neutrophils (42.2 - 75.2 %) 86 H Absolute Lymphocytes (1.2 - 3.4 /CUMM) 0.7 L Lymphocytes (20.5 - 51.1 %) 10 L Monocytes (1.7 - 9.3 %) 3 Absolute Monocytes (0.10 - 0.60 /CUMM) 0.2 Absolute Eosinophils (0.0 - 0.7 /CUMM) 0 Absolute Basophils (0.0 - 0.2 /CUMM) 0 Metamyelocytes (0.0 - 1.0 %) 1 Platelet Estimate (ADEQUATE) VERIFIED BY SMEAR Basophilic Stippling 1+ Anisocytosis 1+ Toxicology Acetone Level (NEGATIVE) NEGATIVE A/P: 72 y/o M with pmh sig for BOB noncompliant with CPAP, DM, RA on prednisone 10 mg, GERD, gout, BPH, HTN, HFpEF, and COPD on 3.5 L of oxygen, recently discharged yesterday/ after he was managed for presyncope and community- acquired pneumonia with antibiotic, discharged on long taper steroid. Now placed on gen med OBS with Acute COPD exacerbation again. Requiring 3 lits of O2. We'll keep the patient on IV steroids. Pulmonology consult will be called. Continue TRC nebs. Patient has been started on his home regimen including diuretics. He was sleepy this morning. We should repeat his ABGs just to make sure carbon dioxide level is coming down. Patient will be continued on his current meds. He is on Lovenox for DVT prophylaxis. He will be seen by physical therapy. He might need to go to rehabilitation upon discharge.
[2017-06-07 10:22] VITALS: BP 122/60
--- NOTE | 2017-06-07 10:52 | Patient Discharge Instructions ---
Discharge Instructions General Discharge Information You were seen/treated for: COPD exacerbation Watch for these problems: In case of chest pain, chest pressure, nausea, vomiting, abdominal pain please go to the nearest emergency room Special Instructions: Please follow-up with your primary care provider and dopster within 1-2 weeks of discharge. Diet Continue normal diet: No Recommended Diet: Diabetic Activity Full Activity/No Limits: No Activity Self Limited: Yes Acute Coronary Syndrome Inclusion Criteria At DC or during hospital stay patient has or had the following: ACS DIAGNOSIS No Discharge Core Measures Meds if any: Prescribed or Continued at Discharge Meds if any: NOT Prescribed or Continued at Discharge Congestive Heart Failure Inclusion Criteria At DC or during hospital stay patient has or had the following: CHF DIAGNOSIS No Discharge Core Measures Meds if any: Prescribed or Continued at Discharge Meds if any: NOT Prescribed or Continued at Discharge Cerebrovascular accident Inclusion Criteria At DC or during hospital stay patient has or had the following: CVA/TIA Diagnosis No Discharge Core Measures Meds if any: Prescribed or Continued at Discharge Meds if any: NOT Prescribed or Continued at Discharge Venous thromboembolism Inclusion Criteria VTE Diagnosis No VTE Type NONE VTE Confirmed by (Test) NONE Discharge Core Measures - Per Current guidelines, there needs to be overlap - treatment for the first 5 days of Warfarin therapy. - If discharged on Warfarin prior to 5 days of - overlap therapy, the patient will need to be - assessed for post discharge needs including - *Post discharge parental anticoagulation - *Warfarin and/or parental anticoagulation education - *Follow up date to check INR post discharge At least 5 days overlap therapy as Inpatient No Meds if any: Prescribed or Continued at Discharge Note: Overlap Therapy is Warfarin and Anticoagulant Meds if any: NOT Prescribed or Continued at Discharge
--- NOTE | 2017-06-07 13:43 | Cons- Pulmonary ---
General Information and HPI Consulting Request Date of Consult: 06/07/17 Requested By: Dr. Perry Reason for Consult: COPD exacerbation Source of Information: patient Exam Limitations: no limitations History of Present Illness: 72 year old man. Requsted by patient and medical team to evaluate patient. Known to me from the office. Just discharged from the hospital. Has significant COPD, RA, back pain, tobacco dependence. On prednisone/methotrexate/enbrel preiodically for RA. Symbicort, spiriva, 3.5L o2 for COPD. Admitted with dyspnea, wheezing for a few days. Dizziness and ?syncope. No n/v/d/c. No CP. Yellowish phlegm. CXR haxy bilateral lower lung opacification - improved. Afebrile, wbc 10.9. Feeling better with steroids. At home was orthostatic and generalized weakness. Allergies/Medications Allergies: Coded Allergies: Sulfa (Sulfonamide Antibiotics) (Intermediate, RASH/HIVES 06/06/17) Home Med List: Albuterol Sulfate 2.5 MG/3 ML (0.083 %) VIAL.NEB 1 Vial INH/TAPAN 5 TIMES A DAY COPD (Reported) Alendronate Sodium 70 MG TABLET 1 TAB PO QTHURS BONES (Reported) in the morning, at least 30 minutes before the first food, beverage, or medication of the day Allopurinol 300 MG TABLET 1 TAB PO DAILY GOUT (Reported) Budesonide/Formoterol Fumarate (Symbicort 160-4.5 Mcg Inhaler) 160 MCG-4.5 MCG/ ACTUATION HFA.AER.AD 2 PUF INH BID PRN COPD (Reported) Calcium Carbonate/Vitamin D3 (Caltrate 600 + D Tablet) 600 MG-800 TABLET 1 TAB PO DAILY SUPPLEMENT (Reported) Cyanocobalamin (Vitamin B-12) (Cyanocobalamin Injection) 1,000 MCG/ML VIAL 1 ML IM Q30D SUPPLEMENT (Reported) Duloxetine HCl (Cymbalta) 60 MG CAPSULE.DR 1 CAP PO DAILY MENTAL HEALTH ( Reported) Folic Acid 1 MG TABLET 1 TAB PO BID SUPPLEMENT (Reported) Furosemide 40 MG TABLET 1 TAB PO DAILY WATER PILL (Reported) Insulin Glargine,Hum.rec.anlog (Lantus Solostar) 100 UNIT/ML (3 ML) INSULN.PEN 30 UNIT SC BID DIABETES (Reported) Lovastatin 40 MG TABLET 1 TAB PO QPM CHOLESTEROL (Reported) with food Methotrexate 2.5 MG TABLET 6 TAB PO QTHURS RA (Reported) Metoprolol Tartrate (Lopressor) 50 MG TABLET 1 TAB PO BID HEART (Reported) Omeprazole 20 MG CAPSULE.DR 1 CAP PO BID GI (Reported) Oxycodone HCl/Acetaminophen (Oxycodone-Acetaminophen 10-325) 10 MG-325 MG TABLET 1 TAB PO 4XDP PRN PAIN (Reported) Prednisone 10 MG TABLET 6 TAB PO DAILY COPD (Reported) Spironolactone (Aldactone) 25 MG TABLET 1 TAB PO DAILY WATER PILL (Reported) Tamsulosin HCl (Flomax) 0.4 MG CAP.ER.24H 1 CAP PO QPM PROSTATE (Reported) Tiotropium [place] (Spiriva) 18 MCG CAP.W.DEV 1 CAP INH DAILY COPD (Reported) Current Medications: Current Medications Sig/Lakisha Start time Last Medication Dose Route Stop Time Status Admin Acetaminophen 650 MG Q6P PRN 06/06 2014 AC PO Albuterol Sulfate 3 ML EVERY 4 HRS/AWAKE 06/06 2359 AC 06/07 INH 1201 Albuterol Sulfate 3 ML 5 TIMES A DAY 06/06 2100 CAN INH Albuterol Sulfate 3 ML Q6 PRN 06/06 2044 CAN INH Albuterol Sulfate 3 ML Q6 06/06 2042 CAN INH Albuterol Sulfate 3 ML ONCE ONE 06/06 1545 DC 06/06 INH 06/06 1546 1556 Allopurinol 300 MG DAILY 06/07 0900 AC 06/07 PO 1010 Atorvastatin Calcium 10 MG 1700 06/07 1700 AC PO Azithromycin 500 MG DAILY 06/06 2021 DC 06/07 Sodium Chloride 250 ML IV 06/07 0959 1016 Budesonide/ 2 PUF BID PRN 06/06 204 AC 06/07 Formoterol Fumarate INH 1028 Calcium Carbonate 500 MG ONCE ONE 06/07 1030 DC 06/07 PO 06/07 1031 1039 Ceftriaxone Sodium 1,000 MG DAILY 06/07 2023 DC 06/07 IV 06/07 0901 1015 Duloxetine HCl 60 MG DAILY 06/07 0900 AC 06/07 PO 1010 Enoxaparin Sodium 40 MG DAILY 06/06 2017 AC 06/07 SC 1011 Furosemide 40 MG DAILY 06/07 0900 AC 06/07 PO 1010 Insulin Aspart 0 TIDAC 06/07 0800 DC SC Insulin Aspart 0 AT BEDTIME 06/06 2145 AC SC Insulin Aspart 0 TIDAC 06/06 2115 AC 06/07 SC 1234 Insulin Detemir 30 UNITS BID 06/06 2100 AC 06/07 SC 1015 Ipratropium [place] 2.5 ML ONCE ONE 06/06 1545 DC 06/06 INH 06/06 1546 1556 Magnesium Sulfate 1 GM ONCE ONE 06/06 1545 DC 06/06 Dextrose/Water 100 ML IV 06/06 1944 1628 Methylprednisolone 40 MG Q12 06/06 2100 AC 06/07 IV 1016 Methylprednisolone 0 .STK-MED ONE 06/06 1823 DC .ROUTE Methylprednisolone 125 MG ONCE ONE 06/06 1730 DC 06/06 IV 06/06 1731 1810 Metoprolol Tartrate 50 MG BID 06/06 2100 AC 06/07 PO 1010 Omeprazole 20 MG BID 06/06 2100 AC 06/07 PO 1010 Spironolactone 25 MG DAILY 06/07 0900 AC 06/07 PO 1010 Tamsulosin HCl 0.4 MG QPM 06/06 2099 AC 06/06 PO 2242 Tiotropium [place] 1 PUF DAILY 06/06 2040 AC INH Review of Systems Comments 18 point review of systems was performed and reviewed. Please see pertinent positives and pertinent negatives in the HPI. Otherwise ROS is negative. Past History Travel History [place]ed [place] past 21 day No Medical History Blood Transfusion Hx: No Neurological: NONE EENT: NONE Cardiovascular: CHF, hypertension Respiratory: COPD, obstructive sleep apnea, with ongoing tobacco use disorder 02 DEPENDANT Gastrointestinal: NONE Hepatic: NONE Renal: benign prost hyperplasia Musculoskeletal: rheumatoid arthritis Psychiatric: NONE Endocrine: INSULIN DEPENDENT DIABETIC TYPE II Blood Disorders: NONE Cancer(s): BASAL CELL CA [employer] AGENT/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 Refer elsewhere in this and other documents for additional details. According to the patient's report he was asymptomatic and functionally unrestricted by his back prior to this injury. He did have functional limitation and restriction because of his other medical conditions. Refer to other inpatient and outpatient medical records for details regarding pre-injury functional status and deficits. Surgical History Surgical History: none (rojeliojashley) Family History Relations & Conditions If Any: MOTHER FHx: cancer Psychosocial History Services at Home: Nursing, Oxygen (4 litres) Smoking Status: Current Everyday Smoker ETOH Use: denies use Illicit Drug Use: denies illicit drug use Functional Ability Ambulation: independent, Ambulatory distance was limited by pulmonary condition and not by any spinal symptoms prior to this injury. Pre-injury functional ability is detailed in "Other Medical Hx" section. Exam & Diagnostic Data Last 24 Hrs of Vital Signs/I&O Vital Signs Date Time Temp Pulse Resp B/P B/P Pulse O2 O2 Flow FiO2 Mean Ox Delivery Rate 06/07 1055 Nasal 2.0L Cannula 06/07 1022 98.2 86 20 122/60 90 Nasal 2.0L Cannula 06/07 1010 80 122/60 06/07 0800 92 Nasal 2.5L Cannula 06/07 0735 93 Nasal 2.0L Cannula 06/07 0645 97.9 76 22 108/70 90 Nasal 3.0L Cannula 06/07 0344 70 92 06/07 0219 71 90 06/07 0000 Nasal 2.0L Cannula 06/06 2314 88 91 06/06 2305 97.8 84 22 118/68 90 Nasal 3.0L Cannula 06/06 2244 84 118/68 06/06 2242 84 118/68 06/06 2122 92 Nasal 2.0L Cannula 06/06 2116 Nasal 2.0L Cannula 06/06 1954 95 Nasal 2.0L Cannula 06/06 1953 97.8 85 20 118/74 94 Nasal 2.0L Cannula 06/06 1628 98.3 81 22 114/79 93 Nasal 2.0L Cannula 06/06 1610 96 Nasal 3.0L Cannula 06/06 1420 92 Nasal 3.5L Cannula Intake & Output 06/07 1600 06/07 0800 06/07 0000 Intake Total 200 550 Output Total Balance 200 550 Intake, IV 300 Intake, Oral 200 250 Patient 250 lb Weight Physical Exam Other Physical Findings: gen awake and alert heent nasal cannula cvs s1, s2 lungs improved wheezing abd soft ext no edema Last 48 Hrs of Labs/Kiel: Laboratory Tests 06/07/17 1210: pH 7.44, pCO2 59 H, pO2 60 L, HCO3 39 H, ABG O2 Sat (Measured) 88.0 L, Carboxyhemoglobin 0.8 L, O2 Concentration % 2.5L, O2 Delivery Method NC, Phlebotomy Draw Site LEFT RADIAL 06/07/17 1030: Troponin I < 0.01 06/07/17 0638: Anion Gap 10, Estimated GFR > 60, BUN/Creatinine Ratio 38.6 H, Hemoglobin A1c 8.5 H, Phosphorus 3.1, Magnesium 2.3, CBC w Diff NO MAN DIFF REQ, RBC 4.78, MCV 92.0, MCH 29.6, MCHC 32.1 L, RDW 14.8 H, MPV 8.8, Gran % 92.1 H, Lymphocytes % 6.3 L, Monocytes % 1.6 L, Eosinophils % 0, Basophils % 0, Absolute Granulocytes 10.1 H, Absolute Lymphocytes 0.7 L, Absolute Monocytes 0.2, Absolute Eosinophils 0, Absolute Basophils 0 06/07/17 0110: Troponin I < 0.01 06/06/17 1600: pH 7.36, pCO2 69 *H, pO2 100, HCO3 39 H, ABG O2 Sat (Measured) 96.0, P-50 (Temp Corrected) N, Carboxyhemoglobin 0.4 L, O2 Concentration % 3L, Temperature 98.0, O2 Delivery Method NC, Phlebotomy Draw Site RIGHT RADIAL 06/06/17 1440: Urine Color YEL, Urine Clarity CLEAR, Urine pH 6.0, Ur Specific [place] 1.020, Urine Protein NEG, Urine Ketones NEG, Urine Nitrite NEG, Urine Bilirubin NEG, Urine Urobilinogen 0.2, Ur Leukocyte Esterase NEG, Ur Microscopic EXAM NOT REQUIRED, Urine Hemoglobin NEG, Urine Glucose >=1000 H 06/06/17 1358: Anion Gap 9, Estimated GFR > 60, BUN/Creatinine Ratio 32.9 H, Glucose 376 H, Serum Osmolality 314 H, Calcium 9.2, Total Bilirubin 0.8, AST 38, ALT 70, Alkaline Phosphatase 57, Troponin I < 0.01, Tyg-L-Jqrbjpqmzoi Pept 275 H, Total Protein 6.6, Albumin 3.7, Globulin 2.9, Albumin/Globulin Ratio 1.3, CBC w Diff MAN DIFF ORDERED, RBC 4.77, MCV 92.2, MCH 30.4, MCHC 32.9 L, RDW 15.1 H, MPV 8.8, Gran % 91.9 H, Lymphocytes % 5.7 L, Monocytes % 2.0, Eosinophils % 0.2, Basophils % 0.2, Absolute Granulocytes 11.2 H, Segmented Neutrophils 86 H, Absolute Lymphocytes 0.7 L, Lymphocytes 10 L, Monocytes 3, Absolute Monocytes 0.2, Absolute Eosinophils 0, Absolute Basophils 0, Metamyelocytes 1, Platelet Estimate VERIFIED BY SMEAR, Basophilic Stippling 1+, Anisocytosis 1+, Acetone Level NEGATIVE Microbiology 06/06 1451 NASOPHARYN: Influenza Virus A & B Rapid Smear - COMP Assessment/Plan Impression/Plan: Impression 72 year old man * exacerbation of COPD in setting of RA * tobacco dependence Plan -smoking cessation/counseled -continue solumedrol 40mg iv q12h today -recently completed course of Augmentin -spo2 goal >92% DVT prophylaxis at all times Pt amenable and will benefit from rehab Consult Acknowledgment - Thank you for your consult request.
[2017-06-07 14:21] VITALS: BP 112/80
[2017-06-07] MEDS ORDERED: PREDNISONE10 M2 PO (16:20)
[2017-06-07 22:35] VITALS: BP 120/60
[2017-06-08 06:17] VITALS: BP 118/68
[2017-06-08 08:24] LABS: ABSOLUTE BASOPHIL COUNT 0 /CUMM (0.0-0.2); ABSOLUTE EOSINOPHIL COUNT 0 /CUMM (0.0-0.7); ABSOLUTE GRANULOCYTE CT 15.2 /CUMM (1.4-6.5); ABSOLUTE LYMPH COUNT 0.7 /CUMM (1.2-3.4); ABSOLUTE MONOCYTE COUNT 0.6 /CUMM (0.10-0.60); BASOPHIL % 0 % (0.0-2.0); EOSINOPHIL % 0 % (0-5); GRANULOCYTE % 92.4 % (42.2-75.2); HEMATOCRIT 45.2 % (42-52); MEAN CORPUSCULAR HGB CONC 32.6 G/DL (33.0-37.0); MEAN PLATELET VOLUME 8.8 FL (7.4-10.4); PLATELET COUNT 140 /CUMM (130-400); RBC DISTRIBUTION WIDTH 15.7 % (11.5-14.5); RED BLOOD CELL CT 4.91 /CUMM (4.70-6.10)
--- NOTE | 2017-06-08 09:38 | PN-Observation ---
See Addendum Observation Note Observation Note _ I have personally examined JANETTE PAEZ. him disposition is uncertain at this time. Before a determination can be made, he requires continued observation for the following reasons [COPD]. Assessment/Plan Medical Assessment: 72 year old male past medical history of BOB noncompliant with CPAP, DM, RA on prednisone 10 mg, GERD, gout, BPH, HTN, HFpEF, and COPD on 3.5 L of oxygen, recently discharged yesterday/ after he was managed for presyncope and community-acquired pneumonia, patient came in for weakness and COPD exacerbation. Assessment and plan 1. Physical deconditioning 2. COPD exacerbation * Patient is being treated for COPD exacerbation with IV steroids. We will continue the same. Patient didn't take his antibiotics regularly and hence decided to give him 2 doses of ceftriaxone. Appreciate pulmonology recommendations patient is on 3 L of oxygen. At baseline at home patient uses 2.5 L. * Physical deconditioning-patient has unstable gait. Patient uses walker at home. Physical therapy on board. Patient is willing to go to short-term rehabilitation if needed. Problem List: 1. Acute and chronic respiratory failure with hypoxia Subjective Follow-up For: COPD exacerbation Subjective: No overnight events. Patient's breathing is improved. He feels better than when he came in. No other complaints. Review of Systems Constitutional: Reports: no symptoms, see HPI. Objective Last 24 Hrs of Vital Signs/I&O Vital Signs Date Time Temp Pulse Resp B/P B/P Pulse O2 O2 Flow FiO2 Mean Ox Delivery Rate 06/08 0838 92 Nasal 2.5L Cannula 06/08 0800 2.5L 06/08 0751 120/78 06/08 0620 95 06/08 0617 97.7 84 24 118/68 91 Nasal 2.5L Cannula 06/08 0315 95 06/08 0008 76 91 06/08 0000 Nasal 2.5L Cannula 06/07 2245 88 91 06/07 2239 72 120/60 06/07 2238 72 120/60 06/07 2235 98.1 91 24 120/60 93 Nasal 2.5L Cannula 06/07 1605 97 Nasal 3.0L Cannula 06/07 1600 95 Nasal 2.5L Cannula 06/07 1421 97.0 84 20 112/80 90 Nasal 3.0L Cannula 06/07 1230 94 Nasal 3.5L Cannula 06/07 1055 Nasal 2.0L Cannula 06/07 1022 98.2 86 20 122/60 90 Nasal 2.0L Cannula 06/07 1010 80 122/60 Intake & Output 06/08 1600 06/08 0800 06/08 0000 Intake Total 130 600 Output Total Balance 130 600 Intake, IV 10 Intake, Oral 120 600 Physical Exam General Appearance: Alert, Oriented X3, Cooperative, No Acute Distress Cardiovascular: Regular Rate, Normal S1, Normal S2 Lungs: exp wheezing Abdomen: Normal Bowel Sounds, Soft, No Tenderness Extremities: No Edema, Normal Pulses, No Tenderness/Swelling Current Medications: Current Medications Sig/Lakisha Start time Last Medication Dose Route Stop Time Status Admin Acetaminophen 650 MG Q6P PRN 06/06 2014 PO Albuterol Sulfate 3 ML EVERY 4 HRS/AWAKE 06/06 2359 AC 06/08 INH 0836 Allopurinol 300 MG DAILY 06/07 09 AC 06/08 PO 0750 Atorvastatin Calcium 10 MG 1700 06/07 1700 AC 06/07 PO 1638 Azithromycin 500 MG DAILY 06/06 2021 GA 06/07 Sodium Chloride 250 ML IV 06/07 0959 1016 Budesonide/ 2 PUF BID PRN 06/06 204 AC 06/08 Formoterol Fumarate INH 0751 Calcium Carbonate 500 MG ONCE ONE 06/07 1030 DC 06/07 PO 06/07 1031 1039 Duloxetine HCl 60 MG DAILY 06/07 09 AC 06/08 PO 0751 Enoxaparin Sodium 40 MG DAILY 06/06 2017 AC 06/08 SC 0750 Furosemide 40 MG DAILY 06/07 09 06/08 PO 0751 Insulin Aspart 0 AT BEDTIME 06/06 2145 [facility] Insulin Aspart 0 TIDAC 06/06 2115 AC 06/08 SC 0750 Insulin Detemir 30 UNITS BID 06/06 2099 AC 06/08 SC 0750 Methylprednisolone 40 MG Q12 06/06 2099 AC 06/08 IV 0749 Metoprolol Tartrate 50 MG BID 06/06 2099 AC 06/08 PO 0751 Omeprazole 20 MG BID 06/06 2099 06/08 PO 0750 Patient Medication 1 ED ONE ONE 06/07 1545 DC Teaching ED 06/07 1546 Spironolactone 25 MG DAILY 06/07 09 06/08 PO 0751 Tamsulosin HCl 0.4 MG QPM 06/06 2100 AC 06/07 PO 2239 Tiotropium [place] 1 PUF DAILY 06/06 2040 AC 06/08 INH 0750 Last 24 Hrs of Labs/Mics: Laboratory Tests 06/08/17 0639: CBC w Diff Pending, WBC Pending, RBC Pending, Hgb Pending, Hct Pending, MCV Pending, MCH Pending, MCHC Pending, RDW Pending, Plt Count Pending, MPV Pending 06/07/17 1210: pH 7.44, pCO2 59 H, pO2 60 L, HCO3 39 H, ABG O2 Sat (Measured) 88.0 L, Carboxyhemoglobin 0.8 L, O2 Concentration % 2.5L, O2 Delivery Method NC, Phlebotomy Draw Site LEFT RADIAL 06/07/17 1030: Troponin I < 0.01
[2017-06-08 11:44] LABS: WHITE BLOOD CELL COUNT 16.5 /CUMM (4.8-10.8)
[2017-06-08 13:58] VITALS: BP 100/60
[2017-06-08 22:27] VITALS: BP 132/70
[2017-06-09 06:22] VITALS: BP 130/73
[2017-06-09 08:49] LABS: ABSOLUTE BASOPHIL COUNT 0 /CUMM (0.0-0.2); ABSOLUTE EOSINOPHIL COUNT 0 /CUMM (0.0-0.7); ABSOLUTE GRANULOCYTE CT 14.7 /CUMM (1.4-6.5); ABSOLUTE LYMPH COUNT 0.7 /CUMM (1.2-3.4); ABSOLUTE MONOCYTE COUNT 0.6 /CUMM (0.10-0.60); BASOPHIL % 0 % (0.0-2.0); EOSINOPHIL % 0 % (0-5); GRANULOCYTE % 91.7 % (42.2-75.2); HEMATOCRIT 46.4 % (42-52); MEAN CORPUSCULAR HGB 29.6 PG (27.0-31.0); MEAN CORPUSCULAR VOLUME 92.6 FL (80.0-94.0); MEAN PLATELET VOLUME 9.7 FL (7.4-10.4); PLATELET COUNT 151 /CUMM (130-400); RBC DISTRIBUTION WIDTH 15.4 % (11.5-14.5); RED BLOOD CELL CT 5.01 /CUMM (4.70-6.10); WHITE BLOOD CELL COUNT 16.1 /CUMM (4.8-10.8)
--- NOTE | 2017-06-09 08:50 | PN-Observation ---
See Addendum Observation Note Observation Note _ I have personally examined JANETTE PAEZ. him disposition is uncertain at this time. Before a determination can be made, he requires continued observation for the following reasons [copd]. Assessment/Plan Medical Assessment: 72 year old male past medical history of BOB noncompliant with CPAP, DM, RA on prednisone 10 mg, GERD, gout, BPH, HTN, HFpEF, and COPD on 3.5 L of oxygen, recently discharged yesterday/ after he was managed for presyncope and community-acquired pneumonia, patient came in for weakness and COPD exacerbation. Assessment and plan 1. Physical deconditioning 2. COPD exacerbation * Patient is being treated for COPD exacerbation with IV steroids. We will continue the same. Patient didn't take his antibiotics regularly and hence decided to give him 2 doses of ceftriaxone. Appreciate pulmonology recommendations patient is on 3 L of oxygen. At baseline at home patient uses 2.5 L. He stable for discharge today. * Physical deconditioning-patient has unstable gait. Patient uses walker at home. Physical therapy on board. Patient is willing to go to short-term rehabilitation and will do so. We will add a bowel regimen. Problem List: 1. Physical deconditioning 2. COPD exacerbation Subjective Follow-up For: COPD exacerbation Subjective: No overnight events. Patient's breathing has continued to improve. He does say he has not had a bowel movement in 2-3 days. No other complaints. Review of Systems Constitutional: Reports: no symptoms. Objective Last 24 Hrs of Vital Signs/I&O Vital Signs Date Time Temp Pulse Resp B/P B/P Pulse O2 O2 Flow FiO2 Mean Ox Delivery Rate 06/09 08 94 Nasal 3.0L Cannula 06/09 0622 97.3 84 20 130/73 93 06/09 0342 90 92 06/09 0000 Nasal 3.0L Cannula 06/08 2227 98.4 92 20 132/70 95 06/08 2038 95 95 06/09 2011 92 132/70 06/08 2012 92 132/70 06/08 1741 82 Room Air 06/08 1600 93 Nasal 2.5L Cannula 06/08 1358 98.1 75 18 100/60 93 Nasal 3.0L Cannula Intake & Output 06/09 1600 06/09 0800 06/09 0000 Intake Total 0 400 Output Total Balance 0 400 Intake, Oral 0 400 Physical Exam General Appearance: Alert, Oriented X3, Cooperative, No Acute Distress Cardiovascular: Regular Rate, Normal S1, Normal S2 Lungs: mild wheezing Abdomen: Normal Bowel Sounds, Soft, No Tenderness Extremities: No Edema, Normal Pulses, No Tenderness/Swelling Current Medications: Current Medications Sig/Lakisha Start time Last Medication Dose Route Stop Time Status Admin Acetaminophen 650 MG Q6P PRN 06/06 2014 AC PO Albuterol Sulfate 3 ML EVERY 4 HRS/AWAKE 06/06 2359 AC 06/09 INH 0801 Allopurinol 300 MG DAILY 06/07 0900 AC 06/09 PO 0835 Atorvastatin Calcium 10 MG 1700 06/07 1700 AC 06/08 PO 1645 Budesonide/ 2 PUF BID PRN 06/06 2044 AC 06/08 Formoterol Fumarate INH 0751 Docusate Sodium 100 MG DAILY NEEDED PRN 06/09 09 UNVr PO Duloxetine HCl 60 MG DAILY 06/07 0900 AC 06/09 PO 0835 Enoxaparin Sodium 40 MG DAILY 06/06 2018 AC 06/09 SC 0831 Fluticasone 2 SPRAY DAILY 06/08 1400 AC 06/09 Propionate CELSO 0833 Furosemide 40 MG DAILY 06/07 0900 AC 06/09 PO 0835 Insulin Aspart 0 AT BEDTIME 06/06 2145 AC 06/08 SC 2011 Insulin Aspart 0 TIDAC 06/06 211 AC 06/09 SC 0832 Insulin Detemir 30 UNITS BID 06/06 2099 AC 06/09 SC 0832 Methylprednisolone 40 MG Q12 06/06 2099 AC 06/09 IV 0833 Metoprolol Tartrate 50 MG BID 06/06 2099 AC 06/09 PO 0835 Nicotine 14 MG DAILY 06/08 1509 AC 06/09 TOP 0833 Omeprazole 20 MG BID 06/06 2099 AC 06/09 PO 0835 Polyethylene Glycol 17 GM DAILY 06/09 0900 UNVr PO Spironolactone 25 MG DAILY 06/07 0900 AC 06/09 PO 0835 Tamsulosin HCl 0.4 MG QPM 06/06 2099 AC 06/08 PO 2012 Tiotropium [place] 1 PUF DAILY 06/07 2039 AC 06/09 INH 0833 Last 24 Hrs of Labs/Mics: Laboratory Tests 06/09/17 0748: CBC w Diff Pending, WBC Pending, RBC Pending, Hgb Pending, Hct Pending, MCV Pending, MCH Pending, MCHC Pending, RDW Pending, Plt Count Pending, MPV Pending
[2017-06-09] MEDS ORDERED: FLUTICASONE PRO16 GM NAS (08:52)
[2017-06-09] MEDS ORDERED: PREDNISONE10 M2 PO (08:53)
[2017-06-09 13:42] VITALS: BP 112/64
[2017-06-09 21:53] VITALS: BP 130/80
[2017-06-10 06:05] VITALS: BP 120/70
--- NOTE | 2017-06-10 06:55 | PN- Housestaff ---
Tono TINEO,Nichol 06/10/17 0655: Subjective Follow-up For: COPD exacerbation Subjective: No overnight events. Patient is anxious to go home today. He refuses to go to short-term rehabilitation since his was sick at home. He does understand the severity of his condition. He complains of cough on and off with productive sputum. He denies chest pain, shortness of breath. Review of Systems Constitutional: Reports: no symptoms. Cardiovascular: Reports: no symptoms. Respiratory: Reports: cough. Gastrointestinal: Reports: no symptoms. Objective Last 24 Hrs of Vital Signs/I&O Vital Signs Date Time Temp Pulse Resp B/P B/P Pulse O2 O2 Flow FiO2 Mean Ox Delivery Rate 06/10 0835 93 Nasal 3.0L Cannula 06/10 0834 88 120/70 06/10 0622 88 90 06/10 0605 97.1 90 20 120/70 92 Nasal 3.0L Cannula 06/10 0303 80 91 06/10 0030 82 92 06/10 0000 Nasal 3.0L Cannula 06/09 2200 62 92 06/09 2153 98.1 90 20 130/80 94 06/09 2036 90 130/80 06/09 2035 90 130/80 06/09 1625 94 Nasal 3.0L Cannula 06/09 1600 94 Nasal 3.0L Cannula 06/09 1342 97.0 78 18 112/64 90 Nasal 3.0L Cannula 06/09 1330 94 Nasal 3.0L Cannula Intake & Output 06/10 1600 06/10 0800 06/10 0000 Intake Total 120 500 Output Total Balance 120 500 Intake, IV 20 Intake, Oral 100 500 Patient 226 lb Weight Physical Exam General Appearance: Alert, Oriented X3, Cooperative, No Acute Distress Skin: No Rashes, No Breakdown Cardiovascular: Regular Rate, Normal S1, Normal S2, No Murmurs Lungs: decreased breath sounds bilateral Abdomen: Soft, No Tenderness, No Hepatospenomegaly Neurological: Strength at 5/5 X4 Ext, Normal Tone, Sensation Intact Current Medications: Current Medications Sig/Lakisha Start time Last Medication Dose Route Stop Time Status Admin Acetaminophen 650 MG Q6P PRN 06/06 2014 AC PO Albuterol Sulfate 3 ML EVERY 4 HRS/AWAKE 06/06 2359 AC 06/10 INH 0835 Allopurinol 300 MG DAILY 06/07 0900 AC 06/10 PO 0834 Atorvastatin Calcium 10 MG 1700 06/07 1700 AC 06/09 PO 1650 Budesonide/ 2 PUF BID PRN 06/06 204 AC 06/10 Formoterol Fumarate INH 0654 Docusate Sodium 100 MG DAILY NEEDED PRN 06/09 0900 AC PO Duloxetine HCl 60 MG DAILY 06/07 0900 AC 06/10 PO 0834 Enoxaparin Sodium 40 MG DAILY 06/06 2018 AC 06/10 SC 0834 Fluticasone 2 SPRAY DAILY NEEDED PRN 06/10 0800 AC 06/10 Propionate CELSO 0833 Fluticasone 2 SPRAY DAILY 06/08 1400 DC 06/09 Propionate CELSO 0833 Furosemide 40 MG DAILY 06/07 0900 AC 06/10 PO 0834 Insulin Aspart 0 AT BEDTIME 06/06 2145 AC 06/09 SC 2036 Insulin Aspart 0 TIDAC 06/06 211 AC 06/10 SC 0836 Insulin Detemir 30 UNITS BID 06/06 2100 AC 06/10 SC 0835 Methylprednisolone 40 MG Q8 06/09 1400 AC 06/10 IV 0654 Metoprolol Tartrate 50 MG BID 06/06 2099 AC 06/10 PO 0834 Nicotine 14 MG DAILY 06/08 1509 AC 06/10 TOP 0831 Omeprazole 20 MG BID 06/06 2099 AC 06/10 PO 0834 Polyethylene Glycol 17 GM DAILY 06/09 0900 AC 06/10 PO 0831 Spironolactone 25 MG DAILY 06/07 0900 AC 06/10 PO 0834 Tamsulosin HCl 0.4 MG QPM 06/06 2100 AC 06/09 PO 2035 Tiotropium [place] 1 PUF DAILY 06/07 2039 AC 06/10 INH 0831 Assessment/Plan Assessment: 72 year old male past medical history of BOB noncompliant with CPAP, DM, RA on prednisone 10 mg, GERD, gout, BPH, HTN, HFpEF, and COPD on 3.5 L of oxygen, recently discharged yesterday/ after he was managed for presyncope and community-acquired pneumonia, patient came in for weakness and COPD exacerbation. Assessment and plan 1. Physical deconditioning 2. COPD exacerbation * Patient is being treated for COPD exacerbation with IV steroids. Over the weekend patient lungs sounded pretty bad and hence is IV methylprednisone from every 12 changed every week. Patient is on 3 L of oxygen. He is resting comfortably. Medical team did an extensive talk to him about his discharge disposition. He is very adamant about going home. He will be seen by Dr. Blake today. If he decides to go home today we'll send him home with long taper of steroids by mouth. * Physical deconditioning-patient has unstable gait. Patient uses walker at home. Physical therapy on board. Patient denies to go to short-term rehabilitation. Problem List: 1. Physical deconditioning 2. COPD exacerbation Pain Ratin Pain Location: none Pain Goal: Remain pain free Pain Plan: tylenol Tomorrow's Labs & Rationales: none [place] TINEO,Daniella 06/10/17 1147: Attending MD Review Statement Attending Statement Attending MD Statement: examined this patient, discuss w/resident/PA/BODY TEAM MEMBER, agreed w/resident/PA/BODY TEAM MEMBER, discussed with family, reviewed EMR data (avail), discussed with nursing, discussed with case mgmt, reviewed images, amended to note Attending Assessment/Plan: Patient seen and examined, he is feeling overall better. His oxygen is at his baseline. Patient was able to ambulate by himself and went to the bathroom. He wants to go home and absolutely refuses to go to rehabilitation. He claims that he has a sick at home that he wants to take care. Vital Signs Date Time Temp Pulse Resp B/P B/P Pulse O2 O2 Flow FiO2 Mean Ox Delivery Rate 06/10 0835 93 Nasal 3.0L Cannula 06/10 0834 88 120/70 06/10 0800 Nasal 3.0L Cannula 06/10 0622 88 90 06/10 0605 97.1 90 20 120/70 92 Nasal 3.0L Cannula 06/10 0303 80 91 06/10 0030 82 92 06/10 0000 Nasal 3.0L Cannula 06/09 2200 62 92 06/09 2153 98.1 90 20 130/80 94 06/09 2036 90 130/80 06/09 2035 90 130/80 06/09 1625 94 Nasal 3.0L Cannula 06/09 1600 94 Nasal 3.0L Cannula 06/09 1342 97.0 78 18 112/64 90 Nasal 3.0L Cannula 06/09 1330 94 Nasal 3.0L Cannula on exam: aox3,nad. cv; s1,s2, rrr resp; overall decreased bs. abd: soft,nt, bs+ ext; no edema no labs. A/P: 72 y/o M with pmh sig for BOB noncompliant with CPAP, DM, RA on prednisone 10 mg, GERD, gout, BPH, HTN, HFpEF, and COPD on 3.5 L of oxygen, recently discharged yesterday/ after he was managed for presyncope and community- acquired pneumonia with antibiotic, discharged on long taper steroid. Admitted with ac copd exacerbation. Patient overall better. We recommend STR. But he wants to home. Patient wants to take care of his sick at home. He is able to walk by himself . Has O2 and walker at home. D/W Dr. Blake who also thinks that patient can be discharged home. He will be discharged on slow prednisone taper till he is down to his baseline dose of 10 mg prednisone which should be continued. He will be given Rx for Nebuliuzer and albuterol nebs. Continue other current meds. Will be discharged home with COPD clinic follow up.
[2017-06-10] MEDS ORDERED: PREDNISONE10 M2 PO ×6 (07:43→12:58)
[2017-06-10 08:34] VITALS: BP 120/70
--- NOTE | 2017-06-10 11:10 | Discharge Summary ---
Visit Information Visit Dates Admission Date: 06/09/17 Discharge Date: 06/10/17 Hospital Course Course Attending Physician: Daniella Perry MD Primary Care Physician: Tanmay Zee MD Hospital Course: Patient is 72 year old male past medical history of BOB noncompliant with CPAP, DM, RA on prednisone 10 mg, GERD, gout, BPH, HTN, HFpEF, and COPD on 3.5 L of oxygen, recently discharged yesterday06/05/17 after he was managed for presyncope and community-acquired pneumonia treated with antibiotic, discharged on long taper steroid. Patient presented to ED with chief complaint of shortness of breath. He said after discharge he continued to feel weak and fatigued, was coughing a lot overnight, had some Robitussin that helped a little, shortness of breath persist despite Symbicort and nebulizers. In the morning patient will tried to sit down on the chair with his and had difficulty breathing, and called his PCP who recommended him to come to ED for evaluation. Patient reported taking 2 tabs of prednisone yesterday the day prior to admission however he should take 6 tab. He continued to use his oxygen but didn't use CPAP. Patient denied any chest pain, palpitation, dizziness or blurry vision, abdominal pain, nausea or vomiting, diarrhea or constipation. Hospital course: Patient treated for COPD exacerbation with IV steroids. Patient also had unstable gait and hence recommended short-term rehabilitation. But patient on the day of discharge denied going to short-term rehabilitation and expresses concern to go home since his is sick. At baseline patient uses walker at home and is on 2.5 L of oxygen. Patient will be sent home with a prednisone taper. Patient was given nebulizer and medications. Advised to continue to take his medication regularly, utilization, follow-up with Dr. Blake and COPD clinic. Allergies: Coded Allergies: Sulfa (Sulfonamide Antibiotics) (Intermediate, RASH/HIVES 06/06/17) Disposition Summary Disposition Principal Diagnosis: COPD exacerbation Additional Diagnosis: none Discharge Disposition: home health services (`) Discharge Instructions General Discharge Information Code Status: Full Code Patient's Diet: Consistent carbohydrate diet Patient's Activity: As tolerated Follow-Up Instructions/Appts: Please follow-up with your primary care provider/electrolysis operator within 1-2 weeks of discharge. Medications at Discharge Discharge Medications: Stop taking the following medications: Prednisone (Prednisone) 10 MG TABLET ORAL DAILY Continue taking these medications: Duloxetine HCl (Cymbalta) 60 MG CAPSULE. 1 Capsule ORAL DAILY Comments: Last Taken: 06/10/17 Time: 8:30 AM Allopurinol (Allopurinol) 300 MG TABLET 1 Tablet ORAL DAILY Comments: Last Taken: 06/10/17 Time: 8:30 AM Folic Acid (Folic Acid) 1 MG TABLET 1 Tablet ORAL TWICE DAILY Comments: DID NOT ADMINISTER IN HOSPITAL Omeprazole (Omeprazole) 20 MG CAPSULE. 1 Capsule ORAL TWICE DAILY Comments: Last Taken: 06/10/17 Time: 8:30 AM Spironolactone (Aldactone) 25 MG TABLET 1 Tablet ORAL DAILY Comments: Last Taken: 06/10/17 Time: 8:30 AM Furosemide (Furosemide) 40 MG TABLET 1 Tablet ORAL DAILY Comments: Last Taken: 06/10/17 Time: 8:30AM Tamsulosin HCl (Flomax) 0.4 MG CAP.ER.24H 1 Capsule ORAL Every night Comments: Last Taken: 06/09/17 Time: 8:45 PM Lovastatin (Lovastatin) 40 MG TABLET 1 Tablet ORAL Every night Instructions: with food Comments: Last Taken: 06/09/17 Time: 5:00 PM Insulin Glargine,Hum.rec.anlog (Lantus Solostar) 100 UNIT/ML (3 ML) INSULN.PEN 30 Unit Inject into fatty tissue TWICE DAILY Comments: [facility] Last Taken: 06/10/17 Time: 8:30 AM Budesonide/Formoterol Fumarate (Symbicort 160-4.5 Mcg Inhaler) 160 MCG-4.5 MCG/ ACTUATION HFA.AER.AD 2 Puff Inhale through mouth TWICE DAILY as needed for COPD Comments: Last Taken: 06/10/17 Time: 7 AM Albuterol Sulfate (Albuterol Sulfate) 2.5 MG/3 ML (0.083 %) VIAL.NEB 1 Vial Inhale Solution 5 TIMES A DAY Comments: Last Taken: 06/10/17 Time: 11:38 AM Metoprolol Tartrate (Lopressor) 50 MG TABLET 1 Tablet ORAL TWICE DAILY Comments: Last Taken: 06/10/17 Time: 8:30 AM Methotrexate (Methotrexate) 2.5 MG TABLET 6 Tablet ORAL EVERY SATURDAY Comments: NOT GIVEN IN HOSPITAL Oxycodone HCl/Acetaminophen (Oxycodone-Acetaminophen 10-325) 10 MG-325 MG TABLET 1 Tablet ORAL 4 times daily as needed as needed for PAIN Qty = 120 Comments: NOT GIVEN IN HOSPITAL Alendronate Sodium (Alendronate Sodium) 70 MG TABLET 1 Tablet ORAL EVERY SATURDAY Qty = 12 Instructions: in the morning, at least 30 minutes before the first food, beverage, or medication of the day Comments: NOT GIVEN IN HOSPITAL Calcium Carbonate/Vitamin D3 (Caltrate 600 + D Tablet) 600 MG-800 TABLET 1 Tablet ORAL DAILY Comments: NOT GIVEN IN HOSPITAL Cyanocobalamin (Vitamin B-12) (Cyanocobalamin Injection) 1,000 MCG/ML VIAL 1 Milliliters INTRAMUSC ONCE A MONTH Comments: NOT TAKEN IN HOSPITAL Tiotropium [place] (Spiriva) 18 MCG CAP.W.DEV 1 Capsule Inhale through mouth DAILY Qty = 90 Comments: Last Taken: 06/10/17 Time: 8:30AM Prednisone (Prednisone) 10 MG TABLET 1 Tablet ORAL DAILY Qty = 30 Start taking the following new medications: Fluticasone Propionate (Fluticasone Propionate) 50 MCG/ACTUATION SPRAY.SUSP 2 [place] In the nose DAILY as needed for Nasal drip Qty = 1 No Refills Instructions: . Comments: Last Taken: 06/10/17 Time: 8:30AM Albuterol Sulfate (Albuterol Sulfate) 1.25 MG/3 ML VIAL.NEB 1 Vial Inhale Solution EVERY 4-6 HOURS as needed for copd Qty = 1 Refills = 1 Instructions: . Comments: Last Taken: 06/10/17 Time: 11:30AM Prednisone (Prednisone) 10 MG TABLET 1 Tablet ORAL DAILY Qty = 63 No Refills Instructions: ... Comments: IV SOLUMEDROL ADMINISTERED PLEASE GIVE 6 TAB ON-06/11-06/13 pLEASE GIVE 5 TAB ON-06/14-06/16 PLEASE GIVE 4 TAB ON-06/17-06/19 please give 3 tab on-06/20-06/22 please give 2 tab on-06/23-06/25 Please give 1 tab on-06/26-06/28 continue prednisone 10 mg daily after this taper Copies To: Saadia TINEO,Tanmay Blake MD,Sebastian
[2017-06-10] MEDS ORDERED: ALBUTEROL1.25 MG/1 INH/SOL ×4 (11:15→11:44)
[2017-06-10] MEDS ORDERED: FLUTICASONE PRO16 GM NAS (11:42)
--- NOTE | 2017-06-10 12:45 | PN- Pulmonary ---
Subjective HPI/Critical Care Issues: Patient seen and examined this morning. He appears to be doing better and is clear regarding his wishes to be discharged to home versus rehabilitation. Objective Current Medications: Current Medications Sig/Lakisha Start time Last Medication Dose Route Stop Time Status Admin Acetaminophen 650 MG Q6P PRN 06/06 2014 AC PO Albuterol Sulfate 3 ML EVERY 4 HRS/AWAKE 06/06 2359 AC 06/10 INH 1138 Allopurinol 300 MG DAILY 06/07 09 AC 06/10 PO 0834 Atorvastatin Calcium 10 MG 1700 06/07 1700 AC 06/09 PO 1650 Budesonide/ 2 PUF BID PRN 06/06 2044 AC 06/10 Formoterol Fumarate INH 0654 Docusate Sodium 100 MG DAILY NEEDED PRN 06/09 09 AC PO Duloxetine HCl 60 MG DAILY 06/07 09 AC 06/10 PO 0834 Enoxaparin Sodium 40 MG DAILY 06/06 2017 AC 06/10 SC 0834 Fluticasone 2 SPRAY DAILY NEEDED PRN 06/10 0800 AC 06/10 Propionate CELSO 0833 Fluticasone 2 SPRAY DAILY 06/08 1400 DC 06/09 Propionate CELSO 0833 Furosemide 40 MG DAILY 06/07 0900 AC 06/10 PO 0834 Insulin Aspart 0 AT BEDTIME 06/06 2145 AC 06/09 SC 203 Insulin Aspart 0 TIDAC 06/06 211 AC 06/10 SC 1232 Insulin Detemir 30 UNITS BID 06/06 2100 AC 06/10 SC 0835 Methylprednisolone 40 MG Q8 06/09 1400 AC 06/10 IV 0654 Metoprolol Tartrate 50 MG BID 06/06 2099 AC 06/10 PO 0834 Nicotine 14 MG DAILY 06/08 1509 AC 06/10 TOP 0831 Omeprazole 20 MG BID 06/06 2099 AC 06/10 PO 0834 Polyethylene Glycol 17 GM DAILY 06/09 09 AC 06/10 PO 0831 Spironolactone 25 MG DAILY 06/07 0900 AC 06/10 PO 0834 Tamsulosin HCl 0.4 MG QPM 06/06 2099 AC 06/09 PO 2035 Tiotropium [place] 1 PUF DAILY 06/06 204 AC 06/10 INH 0831 Vital Signs & I&O Last 24 Hrs of Vitals and I&O: Vital Signs Date Time Temp Pulse Resp B/P B/P Pulse O2 O2 Flow FiO2 Mean Ox Delivery Rate 06/10 0835 93 Nasal 3.0L Cannula 06/10 0834 88 120/70 06/10 0800 Nasal 3.0L Cannula 06/10 0622 88 90 06/10 0605 97.1 90 20 120/70 92 Nasal 3.0L Cannula 06/10 0303 80 91 06/10 0030 82 92 06/10 0000 Nasal 3.0L Cannula 06/09 2200 62 92 06/09 2153 98.1 90 20 130/80 94 06/09 2036 90 130/80 06/09 2035 90 130/80 06/09 1625 94 Nasal 3.0L Cannula 06/09 1600 94 Nasal 3.0L Cannula 06/09 1342 97.0 78 18 112/64 90 Nasal 3.0L Cannula 06/09 1330 94 Nasal 3.0L Cannula Intake & Output 06/10 1600 06/10 0800 06/10 0000 Intake Total 120 500 Output Total Balance 120 500 Intake, IV 20 Intake, Oral 100 500 Patient 226 lb Weight Exam Other Physical Findings: gen awake and alert heent nasal cannula cvs s1, s2 lungs improved wheezing abd soft ext no edema Impression/Plan Impression/Plan Impression/Plan: Impression 72 year old man exacerbation of COPD in setting of RA tobacco dependence Plan -smoking cessation/counseled -Patient is awaiting discharge to home versus rehabilitation. He has chosen to go home per his wishes. Stop the Solu-Medrol and begin prednisone 60 mg with a taper every 3 days by 10 mg down to his baseline -completed course of abx -allergic to sulfa, will not use mucomyst -added fluticasone nasal spray per patient request -spo2 goal >92% DVT prophylaxis at all times
[2017-07-02] MEDS ORDERED: TAMSULOSIN HCL0.4 M1 PO (22:37)
[2017-07-11] MEDS ORDERED: PREDNISONE10 M2 PO ×2 (08:23→13:43)
[2017-07-11] MEDS ORDERED: METOPROLOL TAR100 M1 PO (13:31)
[2017-07-11] MEDS ORDERED: LASIX20 M1 PO (13:35)
[2017-07-11] MEDS ORDERED: CARDIZEM60 M1 PO (13:35)
[2017-07-11] MEDS ORDERED: ELIQUIS5 M1 PO (13:51)
[2017-07-11] MEDS ORDERED: MIRALAX119 GM PO (13:53)
[2017-07-11] MEDS ORDERED: SENOKOT-S TABL1 EACH PO (13:53)
== END 2017-06-10 13:50 | disposition home health service (06) | DRG 191 ==
LOC: ERH 13:37 → ERHI 18:37 → ENRESERV 19:15 → ENTRNSPT 19:56 → EDTRNSPTSTS 20:06 → EDTRNSPT 20:06 → 2NA 20:11 → CMPTRNSPT 20:35 → 2NA 06-07 07:56 → ENPENDDIS 06-10 13:17 → ENTRNSPT 06-10 13:43 → EDTRNSPT 06-10 13:46 → EDTRNSPTSTS 06-10 13:46 → 2NA 06-10 13:50 → CMPTRNSPT 06-10 14:14
PROVIDERS: Emergency Medicine; Internal Medicine; Student in an Organized Health Care Education/Training Program
DX: J44.1 Chronic obstructive pulmonary disease with (acute) exacerbation (principal); J96.12 Chronic respiratory failure with hypercapnia; E11.8 Type 2 diabetes mellitus with unspecified complications; I11.0 Hypertensive heart disease with heart failure; I50.32 Chronic diastolic (congestive) heart failure; Z99.81 Dependence on supplemental oxygen; Z72.0 Tobacco use; M06.9 Rheumatoid arthritis, unspecified; Z79.4 Long term (current) use of insulin; G47.33 Obstructive sleep apnea (adult) (pediatric); Z91.19 Patient's noncompliance with other medical treatment and regimen; K21.9 Gastro-esophageal reflux disease without esophagitis; R26.2 Difficulty in walking, not elsewhere classified; Z79.52 Long term (current) use of systemic steroids; N40.0 Benign prostatic hyperplasia without lower urinary tract symptoms; Z88.2 Allergy status to sulfonamides; Z79.891 Long term (current) use of opiate analgesic; Z79.51 Long term (current) use of inhaled steroids; M10.9 Gout, unspecified
CPT/HCPCS: 2NAP; 36415; 36592; 71046; 81003; 82436; 87804; 87804-59; 93005; 93010; 96374; 96375; J0456; J0696; J1650; J1815; J2920; J2930; J3490; J7040; J7512

== ENCOUNTER 2017-08-12 14:12 | Inpatient (IN) | payer OTHER, MEDICARE ==
[~2017-08-12] VITALS: Ht 172.7 cm; Wt 110.7 kg
[~2017-08-12 14:12] MED LIST changes: +ALBUTEROL1.25 MG/1 INH/SOL; +CARDIZEM60 M1 PO; +ELIQUIS5 M1 PO; +FLUTICASONE PRO16 GM NAS; +LASIX20 M1 PO; +METOPROLOL TAR100 M1 PO; +MIRALAX119 GM PO; +SENOKOT-S TABL1 EACH PO; +TAMSULOSIN HCL0.4 M1 PO
--- NOTE | 2017-08-12 16:41 | ED CARDIAC/CP/PALPITATIONS ---
History of Present Illness General Chief Complaint: Palpitations Stated Complaint: ELEVATED HEART RATE Source: patient, family Exam Limitations: no limitations Vital Signs & Intake/Output Vital Signs & Intake/Output Vital Signs Date Time Temp Pulse Resp B/P B/P Pulse O2 O2 Flow FiO2 Mean Ox Delivery Rate 08/13 0705 97.6 72 18 100/60 95 Nasal Cannula 08/13 0518 118 100/60 07/03 0000 94 Nasal 2.5L Cannula 08/12 2312 100/60 / 2224 94 Nasal 2.0L Cannula 08/12 2201 Nasal 1.5L Cannula 08/12 2201 98.7 120 20 100/60 93 Nasal 1.5L Cannula 08/12 2052 127 18 126/72 91 Room Air 07/ 1815 88 18 130/70 95 Nasal 2.0L Cannula 08/12 1745 97.8 118 22 110/62 /02 1730 Nasal 2.0L Cannula 08/12 1727 126 18 119/76 95 Room Air 08/12 1637 127 18 94/64 96 Nasal 2.0L Cannula 08/12 1437 96.7 106 20 100/60 92 Nasal 2.5L Cannula ED Intake and Output 08/13 0000 08/12 1200 Intake Total Output Total Balance Patient 240 lb Weight Weight Reported by Patient Measurement Method Allergies Coded Allergies: Sulfa (Sulfonamide Antibiotics) (Intermediate, RASH/HIVES 06/06/17) Triage Note: PT TO ED WITH SISTER FOR HIGH HEARTRATE AND BP. VISITING NURSE SAW PT TODAY AND ADVISED HIM TO COME TO ED FOR EVAL OF HEARTRATE AND BP. BP 100/60, HEARTRATE 106. PT HAS NO COMPLAINTS, ON 2.5L NC AT BASELINE. Triage Nurses Notes Reviewed? yes Onset: Gradual Duration: day(s): Timing: recent history HPI: 72yo male with hx of a fib/flutter on diltiazem and eliquis, CHF on 2.5L O2, HTN presents to ED complaining of tachycardia and hypotension detected by visiting RN today. Patient also reports a fall today while he was standing on the scale, he states he slid slowly to the floor, no headstrike/LOC, no injury relating to the fall. Patient had no prodromal symptoms prior to his fall. PAtient has had two prior episodes of these falls recently. He sees loom mechanic, Dr. López, and has been told he will have cardioversion for his a fib soon. Patient reports baseline dyspnea which has not changed. He reports worsening pedal edema however 10 lb weight loss since beginning Mertazipine. Patient denies chest pain, syncope. (Siria PRITCHARD,Keren Hill) Reconcile Medications Albuterol Sulfate 2.5 MG/3 ML (0.083 %) VIAL.NEB 1 Vial INH/TAPAN 5 TIMES A DAY COPD (Reported) Albuterol Sulfate 1.25 MG/3 ML VIAL.NEB 1 Vial INH/TAPAN Q4-6 PRN copd . Alendronate Sodium 70 MG TABLET 1 TAB PO QTHURS BONES (Reported) in the morning, at least 30 minutes before the first food, beverage, or medication of the day Allopurinol 300 MG TABLET 1 TAB PO DAILY GOUT (Reported) Apixaban (Eliquis) 5 MG TABLET 1 TAB PO BID Atrial Fibrilliation Budesonide/Formoterol Fumarate (Symbicort 160-4.5 Mcg Inhaler) 160 MCG-4.5 MCG/ ACTUATION HFA.AER.AD 2 PUF INH BID PRN COPD (Reported) Calcium Carbonate/Vitamin D3 (Caltrate 600 + D Tablet) 600 MG-800 TABLET 1 TAB PO DAILY SUPPLEMENT (Reported) Cyanocobalamin (Vitamin B-12) (Cyanocobalamin Injection) 1,000 MCG/ML VIAL 1 ML IM Q30D SUPPLEMENT (Reported) Duloxetine HCl (Cymbalta) 60 MG CAPSULE.DR Lopez CAP PO DAILY MENTAL HEALTH ( Reported) Fluticasone Propionate 50 MCG/ACTUATION SPRAY.SUSP 2 SPRAY CELSO DAILY PRN Nasal drip . Folic Acid 1 MG TABLET 1 TAB PO BID SUPPLEMENT (Reported) Furosemide (Lasix) 20 MG TABLET 1 TAB PO DAILY Fluid Retention Insulin Glargine,Hum.rec.anlog (Lantus Solostar) 100 UNIT/ML (3 ML) INSULN.PEN 30 UNIT SC BID DIABETES (Reported) Lovastatin 40 MG TABLET 1 TAB PO QPM CHOLESTEROL (Reported) with food Methotrexate 2.5 MG TABLET 6 TAB PO QTHURS RA (Reported) Metoprolol Tartrate 100 MG TABLET 1 TAB PO BID Atrial Flutter Omeprazole 20 MG CAPSULE. 1 CAP PO BID GI (Reported) Oxycodone HCl/Acetaminophen (Oxycodone-Acetaminophen 10-325) 10 MG-325 MG TABLET 1 TAB PO 4XDP PRN PAIN (Reported) Polyethylene Glycol 3350 (Miralax) 17 GRAM/DOSE POWDER 17 GM PO DAILY Constipation mix with water, juice, soda, coffee or tea Prednisone 10 MG TABLET 2 TAB PO DAILY COPD Sennosides/Docusate Sodium (Senokot-S Tablet) 8.6 MG-50 MG TABLET 1 TAB PO BID Constipation Tamsulosin HCl 0.4 MG CAP.ER.24H 1 CAP PO DAILY BPH (Reported) Tiotropium [place] (Spiriva) 18 MCG CAP.W.DEV 1 CAP INH DAILY COPD (Reported) (Austen Mills MD) Past History Travel History Traveled to [facility] past 21 day No Medical History Any Pertinent Medical History? 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 Refer elsewhere in this and other documents for additional details. According to the patient's report he was asymptomatic and functionally unrestricted by his back prior to this injury. He did have functional limitation and restriction because of his other medical conditions. Refer to other inpatient and outpatient medical records for details regarding pre-injury functional status and deficits. History of MRSA: No History of VRE: Yes History of CDIFF: No Surgical History Surgical History: N (jjjg) Psychosocial History Who do you live with Spouse Services at Home Nursing, Oxygen (4 litres) What is your primary language Romansh Tobacco Use: Quit >30 days ago ETOH Use: denies use Illicit Drug Use: denies illicit drug use Family History Family History, If Any: MOTHER FHx: cancer Hx Contributory? No (Siria PRITCHARD,Keren Hill) Review of Systems Review of Systems Constitutional: Reports: see HPI. EENTM: Reports: no symptoms. Respiratory: Reports: see HPI. Cardiovascular: Reports: see HPI. GI: Reports: no symptoms. Genitourinary: Reports: no symptoms. Musculoskeletal: Reports: no symptoms. Skin: Reports: no symptoms. Neurological/Psychological: Reports: no symptoms. Hematologic/Endocrine: Reports: no symptoms. Immunologic/Allergic: Reports: no symptoms. All Other Systems: Reviewed and Negative (Siria PRITCHARD,Keren Hill) Physical Exam Physical Exam General Appearance: well developed/nourished, no apparent distress, alert, awake Head: atraumatic, normal appearance Eyes: Bilateral: normal appearance. Ears, Nose, Throat: hearing grossly normal Neck: normal inspection, supple, full range of motion Respiratory: no respiratory distress, mildly diminished breath sounds bilateral lung douglas with faint expiratory wheezes Cardiovascular: irregularly irregular Peripheral Pulses: 2+ radial (R), 2+ radial (L) Gastrointestinal: soft, non-tender Back: normal inspection Extremities: 3+ pitting edema bilaterally Neurologic/Psych: awake, alert, oriented x 3 Skin: intact, normal color, warm/dry Core Measures ACS in differential dx? Yes CVA/TIA Diagnosis No Sepsis Present: No Sepsis Focused Exam Completed? No (Siria PRITCHARD,Keren Hill) Progress Differential Diagnosis: AMI, atrial fibrillation, CHF/pulm edema, pneumonia, PSVT, unstable angina, orthostatic hypotension Plan of Care: Orders Procedure Date/time Status CHF Diet 08/13 B Active EKG 08/13 0800 Active TROPONIN LEVEL 08/13 0600 Active CBC WITHOUT DIFFERENTIAL 08/13 0600 Active BASIC ELECTROLYTES PLUS BUN&CR 08/13 0600 Active EKG 08/13 0600 Active ECHOCARDIOGRAM 08/13 0600 Active TROPONIN LEVEL 07 0000 Complete EKG 08/13 0000 Active Regular Diet 08/12 D Complete Wound Care/Dressing 08/12 2213 Active Pathway - chart 08/13 2115 Active Code Status 08/13 2115 Active Vital Signs 08/13 2111 Complete Teach/Educate 08/13 2111 Active Pain Treatment and Response 08/13 2111 Active Nutritional Intake, Monitor 08/13 2111 Active Isolation 08/13 2111 Active Intake & Output 08/13 2111 Complete Patient Care Conference 08/13 2111 Active Activity/Ambulation 08/13 2111 Complete Patient Data 08/12 1911 Active OXYGEN SETUP (GEN) 08/12 183 Active Saline Lock 08/[address] in observation 08/12 1830 Active Vital Signs 08/12 1830 Active Activity/Ambulation 08/12 1830 Active Code Status 08/12 1830 Complete Add-on Test (ER Only) 08/12 1818 Active Intake & Output 08/12 1817 Active MISTAKE 08/12 1659 Active MAGNESIUM 08/12 1652 Complete B-TYPE NATRIURETIC PEP (BNP) 08/12 1652 Complete Add-on Test (ER Only) 08/12 1641 Active THYROID STIMULATING HORMONE 08/12 1542 Complete TROPONIN LEVEL 08/12 1542 Complete LACTIC ACID 08/12 1542 Complete COMPREHENSIVE METABOLIC PANEL 08/12 1542 Complete CBC WITHOUT DIFFERENTIAL 08/12 1542 Complete EKG 08/12 1414 Active TRC EVALUATION (GEN) 08/12 UNK Active Pathway - chart 08/12 UNK Active House Staff 08/12 UNK Active Lab Add-on Test 08/12 UNK Active Weight 08/12 UNK Active VTE Mechanical Prophylaxis 08/12 UNK Active Vital Signs 08/12 UNK Complete Intake & Output 08/12 UNK Complete FingerStick- Glucose 08/12 UNK Active Activity/Ambulation 08/12 UNK Complete PHYSICIAN CONSULT 08/12 UNK Active Current Medications Sig/Lakisha Start time Last Medication Dose Stop Time Status Admin Methotrexate 15 MG QTHURS 08/15 0900 AC (Methotrexate 2.5MG Tab) Atorvastatin Calcium 20 MG 1700 08/13 1700 AC (Lipitor) Allopurinol 300 MG DAILY 08/13 09 AC (Zyloprim) Duloxetine HCl 60 MG DAILY 08/13 0900 AC (Cymbalta) Folic Acid 1 MG BID 08/13 0900 AC (Folic Acid) Furosemide 40 MG DAILY 08/13 0900 CAN (Lasix) Omeprazole 40 MG DAILY 08/13 0900 AC (Prilosec) Polyethylene Glycol 17 GM DAILY 08/13 0900 AC (Miralax) Senna/Docusate Sodium 1 TAB BID 08/13 0900 AC (Senokot S) Tiotropium [place] 1 PUF DAILY 08/13 0900 AC (Spiriva) Insulin Aspart 0 TIDAC 08/13 0800 AC (NovoLOG) Insulin Detemir 20 UNITS BID 08/12 2300 AC 08/12 (Levemir) 2313 Oxycodone/ 1 TAB Q8P PRN 08/12 2200 AC Acetaminophen (Percocet) Diltiazem HCl 60 MG Q6 08/12 2145 AC 08/13 (Cardizem) 0518 Albuterol Sulfate 3 ML Q4H PRN 08/12 2129 AC 08/12 (Proventil) 221 Budesonide/ 2 PUF BID 08/12 2129 AC 08/12 Formoterol Fumarate 231 (Symbicort) Fluticasone 2 SPRAY DAILY PRN 08/12 2129 AC Propionate (Flonase) Apixaban 5 MG BID 08/12 2116 AC 08/12 (Eliquis) 231 Acetaminophen 650 MG Q8P PRN 08/12 2114 AC (Tylenol) Sodium Chloride 1,000 ML ONCE ONE 08/12 1700 CAN (Normal Saline 0.9%) 08/12 2339 Laboratory Tests 08/13/17 0715: Sodium Pending, Potassium Pending, Chloride Pending, Carbon Dioxide Pending, Anion Gap Pending, BUN Pending, Creatinine Pending, BUN/Creatinine Ratio Pending , Troponin I Pending, CBC w Diff Pending, WBC Pending, RBC Pending, Hgb Pending, Hct Pending, MCV Pending, MCH Pending, MCHC Pending, RDW Pending, Plt Count Pending, MPV Pending 08/13/17 0300: Sodium Cancelled, Potassium Cancelled, Chloride Cancelled, Carbon Dioxide Cancelled, Anion Gap Cancelled, BUN Cancelled, Creatinine Cancelled, BUN/ Creatinine Ratio Cancelled 08/13/17 0020: Troponin I < 0.01 08/12/17 1700: [id number]-L-[id number] Pept Cancelled 08/12/17 1652: Anion Gap 10, Estimated GFR > 60, BUN/Creatinine Ratio 26.7 H, Glucose 112 H, Lactic Acid 1.5, Calcium 9.8, Magnesium 1.7, Total Bilirubin 1.1, AST 23, ALT 80 H, Alkaline Phosphatase 80, Troponin I < 0.01, Zls-P-Vdsyqgntmvp Pept 797 H, Total Protein 6.4, Albumin 3.7, Globulin 2.7, Albumin/Globulin Ratio 1.4, TSH 1.580, CBC w Diff NO MAN DIFF REQ, RBC 4.36 L, MCV 94.6 H, MCH 30.7, MCHC 32.5 L, RDW 17.6 H, MPV 7.8, Gran % 88.8 H, Lymphocytes % 7.6 L, Monocytes % 3.5, Eosinophils % 0.1, Basophils % 0, Absolute Granulocytes 12.0 H, Absolute Lymphocytes 1.0 L, Absolute Monocytes 0.5, Absolute Eosinophils 0, Absolute Basophils 0 The patient's blood pressure and tachycardia have responded well to IV diltiazem. Patient's labs show elevated CO2, 44. Old labs reviewed, patient has a history of elevated CO2 in the past, previous labs that showed levels of 41. Troponin enzyme is negative. Patient's chest x-ray shows mild CHF with bilateral effusions. Spoke with Dr. López who states that he cannot cardiovert the patient yet because the patient has not been on anticoagulation for 6 weeks. He recommends 24-hour observation to continue to check vital signs with telemetry monitoring. He states possible Lasix dose if necessary IV. Spoke with Dr. Khan regarding telemetry observation. Diagnostic Imaging: Viewed by Me: Radiology Read. Discussed w/RAD: Radiology Read. CXR Impression: PATIENT: JANETTE PAEZ PRESENT AGE: 72 PATIENT ACCOUNT NO: [id number] : 43 LOCATION: [facility] ORDERING PHYSICIAN: Jl PRITCHARD SERVICE DATE: 08/12/17 EXAM TYPE: RAD - XRY-CHEST XRAY, TWO VIEWS EXAMINATION: XR CHEST CLINICAL INFORMATION: 72-year-old male patient with chest pain or palpitations. COMPARISON: Chest x-ray done 2017. TECHNIQUE: Portable chest x-rays on 07/03/2017 and 07/07/2017. FINDINGS: The heart is top normal in size. There is central pulmonary vascular congestion and small bilateral pleural effusions. IMPRESSION: Central vascular congestion and small bilateral pleural effusions. Mild CHF is suspected. 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 <Electronically signed in Other Vendor System> SIGNED BY: Darrin Diaz MD 08/12/17 6671 Initial ED EKG: ATRIAL FIBRILLATION RATE 115, RBBB, NONSPECIFIC ST CHANGES Prior EKG: unchanged (07/09/17) (Siria PRITCHARD,Keren Hill) Departure Departure Disposition: STILL A PATIENT Condition: Stable Clinical Impression Primary Impression: CHF (congestive heart failure) Qualifiers: Heart failure type: unspecified Heart failure chronicity: unspecified Qualified Code: I50.9 - Heart failure, unspecified Secondary Impressions: Atrial fibrillation Qualifiers: Atrial fibrillation type: unspecified Qualified Code: I48.91 - Unspecified atrial fibrillation Hypotension Qualifiers: Hypotension type: unspecified hypotension type Qualified Code: I95.9 - Hypotension, unspecified Referrals: Saadia TINEO,Tanmay Quintanilla (PCP/Family) Departure Forms: Customer Survey General Discharge Information Observation Note Spoke With: Narda Khan MD Physician Advisor Notified: IOANA LOZOYA DO Place Patient In: Non-ED OBS Care Area Rationale for Observation: My rational for observation is as follows [CHF with tachycardia and hypotension requiring IV rate control, possible IV Lasix, telemetry monitoring, cardiology consult, premature discharge medically unsafe]. (Siria PRITCHARD,Keren Hill) Departure Prescriptions: Current Visit Scripts Prednisone 2 TAB PO DAILY #30 TAB PA/EXECUTIVE SALES MANAGER Co-Sign Statement Statement: ED Attending supervision documentation- X I saw and evaluated the patient. I have also reviewed all the pertinent lab results and diagnostic results. I agree with the findings and the plan of care as documented in the PA's/EXECUTIVE SALES MANAGER's documentation. Palpitations, weakness with rapid afib, hypotension, CHF. [] I have reviewed the ED Record and agree with the PA's/EXECUTIVE SALES MANAGER's documentation. [] Additions or exceptions (if any) to the PAs/EXECUTIVE SALES MANAGER's note and plan are summarized below: [] (Lina TINEO,Austen) Critical Care Note Critical Care Note Critical Care Time: non-applicable (Keren Casey)
--- NOTE | 2017-08-12 17:01 | RADIOLOGY REPORT ---
EXAMINATION: XR CHEST CLINICAL INFORMATION: 72-year-old male patient with chest pain or palpitations. COMPARISON: Chest x-ray done 07/07/2017. TECHNIQUE: Portable chest x-rays on 07/03/2017 and 07/07/2017. FINDINGS: The heart is top normal in size. There is central pulmonary vascular congestion and small bilateral pleural effusions. IMPRESSION: Central vascular congestion and small bilateral pleural effusions. Mild CHF is suspected.
[2017-08-12 17:17] LABS: ABSOLUTE BASOPHIL COUNT 0 /CUMM (0.0-0.2); ABSOLUTE EOSINOPHIL COUNT 0 /CUMM (0.0-0.7); ABSOLUTE MONOCYTE COUNT 0.5 /CUMM (0.10-0.60); BASOPHIL % 0 % (0.0-2.0); EOSINOPHIL % 0.1 % (0-5); HEMATOCRIT 41.2 % (42-52); MEAN CORPUSCULAR HGB 30.7 PG (27.0-31.0); MEAN CORPUSCULAR HGB CONC 32.5 G/DL (33.0-37.0); MEAN CORPUSCULAR VOLUME 94.6 FL (80.0-94.0); MEAN PLATELET VOLUME 7.8 FL (7.4-10.4); PLATELET COUNT 184 /CUMM (130-400); RBC DISTRIBUTION WIDTH 17.6 % (11.5-14.5); RED BLOOD CELL CT 4.36 /CUMM (4.70-6.10); WHITE BLOOD CELL COUNT 13.5 /CUMM (4.8-10.8)
[2017-08-12 17:22] LABS: GRANULOCYTE % 88.8 % (42.2-75.2)
--- NOTE | 2017-08-12 20:28 | History & Physical ---
Eboni Arias 08/12/172024: General Information and HPI History of Present Illness: Lan Claudio is a 72 YO male with PMH of Atrial Fibrillation, Heart Failure and Diabetes Mellitus presenting today with complaints of "palpitations." Patient states he had a presyncopal episode today around noon time. Patient denied any loss of consciousness, dizziness, lightheadedness, or skeletal injury. Patient states he also had a presyncopal episode last week after his visit with his hide buyer Dr. López. Patient also states he has a history of an "irregular heartbeat" which has not been adequately controlled by medications. Patient states his hide buyer recommended they would have to utilize cardioversion if his irregular heartbeat persists. Patient has been going to rehabilitation at [facility] and completed his therapy last week. Patient has been actively using his walker for mobility. Patient denies dypsnea with exertion and states he is able to go to the bathroom and to the car without difficulty. Patient denies any recent change in activity. Patient also states he is a diabetic. Patient does not commit to stating whether or not he follows a proper diabetic diet. Patient states he eats out on occasion. 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 Patient states he also has a diabetic foot ulcer on his right foot. Patient also relates that his feet and legs have been "weeping" for the past couple of weeks. Patient follows up with Dr. Tanmay Zee (PCP) and Dr. López (Cardiology). 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 Refer elsewhere in this and other documents for additional details. According to the patient's report he was asymptomatic and functionally unrestricted by his back prior to this injury. He did have functional limitation and restriction because of his other medical conditions. Refer to other inpatient and outpatient medical records for details regarding pre-injury functional status and deficits. History of MRSA: No History of VRE: Yes History of CDIFF: No Surgical History Surgical History: N (jjjg) Past Family/Social History Family History Relations & Conditions if any MOTHER FHx: cancer Psychosocial History Services at Home: Nursing, Oxygen (2.5 liters) Smoking Status: Former Smoker ETOH Use: denies use Illicit Drug Use: denies illicit drug use Functional Ability Ambulation: independent, Ambulatory distance was limited by pulmonary condition and not by any spinal symptoms prior to this injury. Pre-injury functional ability is detailed in "Other Medical Hx" section. Review of Systems Review of Systems Constitutional: Denies: chills, diaphoresis. EENTM: Reports: visual changes (vision loss). Cardiovascular: Reports: edema, palpitations, peripheral edema, syncope (presyncope). Denies: chest pain, orthopena. Respiratory: Denies: cough, orthopnea, short of breath. GI: Denies: abdominal pain. Genitourinary: Denies: dysuria. Neurological/Psychological: Denies: weakness. Exam & Diagnostic Data Last 24 Hrs of Vital Signs/I&O Vital Signs Date Time Temp Pulse Resp B/P B/P Pulse O2 O2 Flow FiO2 Mean Ox Delivery Rate 08/12 2052 127 18 126/72 91 Room Air 08/12 1815 88 18 130/70 95 Nasal 2.0L Cannula 08/12 1745 97.8 118 22 110/62 08/12 1730 Nasal 2.0L Cannula 08/12 1727 126 18 119/76 95 Room Air 08/12 1637 127 18 94/64 96 Nasal 2.0L Cannula 08/12 1437 96.7 106 20 100/60 92 Nasal 2.5L Cannula Intake & Output 08/12 1600 08/12 0800 08/12 0000 Intake Total Output Total Balance Patient 250 lb Weight Weight Reported by Patient Measurement Method Physical Exam General Appearance Alert, Oriented X3, Cooperative Skin LE weeping; Right Foot Ulcer with wrapping and xeroform HEENT Atraumatic Neck No JVD Cardiovascular Normal S1, Normal S2 Lungs Clear to Auscultation, Normal Air Movement Abdomen Soft (distended) Neurological Normal Tone, Sensation Intact Extremities 2+ edema Assessment/Plan Assessment: Problem list * CHF exacerbation * Atrial Flutter/Atrial Fibrillation * h/o Diabetes Mellitus * h/o COPD -CHF exacerbation presentation supported by CXR and BNP -Admit to Telemetry for cardiac monitoring of any abnormal rhythms -For CHF exacerbation, diuresis currently contraindicated due to alkalosis with CO2 44 -Start rate control medications for atrial flutter with Diltiazem 60 mg q6 PO -AM Cardiology Consult with Dr. López -Monitor vitals closely -CXR Impression: Central vascular congestion and small b/l pleural effusions -Echocardiogram (07/09/17): Normal LVEF >55 Checklist: 1. Consults - Cardiology Dr. López As Ranked By This Provider Problem List: 1. CHF (congestive heart failure) Qualifiers Heart failure type: unspecified Heart failure chronicity: unspecified Qualified Code: I50.9 - Heart failure, unspecified 2. Atrial flutter 3. Tachycardia 4. Syncope Core Measures/Misc (10/28) Acute Coronary Syndrome ACS Diagnosis: No Congestive Heart Failure Congestive Heart Failure Diagnosis Yes Last Known EF % 55 (exam date 07/09/17 ) Cerebrovascular Accident CVA/TIA Diagnosis: No VTE (View Protocol) VTE Risk Factors Acute Medical Illness No Mechanical VTE Prophylaxis d/t N/A MechProphylax Ordered No VTE Pharm Prophylaxis d/t NA PharmProphylax ordered Sepsis (View protocol) Sepsis Present: No If YES complete Sepsis Event Note If YES complete Sepsis Event Note Brooklynn Corado 08/12/172058: General Information and HPI Allergies/Medications Home Med list Albuterol Sulfate 2.5 MG/3 ML (0.083 %) VIAL.NEB 1 Vial INH/TAPAN 5 TIMES A DAY COPD (Reported) Albuterol Sulfate 1.25 MG/3 ML VIAL.NEB 1 Vial INH/TAPAN Q4-6 PRN copd . Alendronate Sodium 70 MG TABLET 1 TAB PO QTHURS BONES (Reported) in the morning, at least 30 minutes before the first food, beverage, or medication of the day Allopurinol 300 MG TABLET 1 TAB PO DAILY GOUT (Reported) Apixaban (Eliquis) 5 MG TABLET 1 TAB PO BID Atrial Fibrilliation Budesonide/Formoterol Fumarate (Symbicort 160-4.5 Mcg Inhaler) 160 MCG-4.5 MCG/ ACTUATION HFA.AER.AD 2 PUF INH BID PRN COPD (Reported) Calcium Carbonate/Vitamin D3 (Caltrate 600 + D Tablet) 600 MG-800 TABLET 1 TAB PO DAILY SUPPLEMENT (Reported) Cyanocobalamin (Vitamin B-12) (Cyanocobalamin Injection) 1,000 MCG/ML VIAL 1 ML IM Q30D SUPPLEMENT (Reported) Duloxetine HCl (Cymbalta) 60 MG CAPSULE.DR 1 CAP PO DAILY MENTAL HEALTH ( Reported) Fluticasone Propionate 50 MCG/ACTUATION SPRAY.SUSP 2 SPRAY CELSO DAILY PRN Nasal drip . Folic Acid 1 MG TABLET 1 TAB PO BID SUPPLEMENT (Reported) Furosemide (Lasix) 20 MG TABLET 1 TAB PO DAILY Fluid Retention Insulin Glargine,Hum.rec.anlog (Lantus Solostar) 100 UNIT/ML (3 ML) INSULN.PEN 30 UNIT SC BID DIABETES (Reported) Lovastatin 40 MG TABLET 1 TAB PO QPM CHOLESTEROL (Reported) with food Methotrexate 2.5 MG TABLET 6 TAB PO QTHURS RA (Reported) Metoprolol Tartrate 100 MG TABLET 1 TAB PO BID Atrial Flutter Omeprazole 20 MG CAPSULE.DR 1 CAP PO BID GI (Reported) Oxycodone HCl/Acetaminophen (Oxycodone-Acetaminophen 10-325) 10 MG-325 MG TABLET 1 TAB PO 4XDP PRN PAIN (Reported) Polyethylene Glycol 3350 (Miralax) 17 GRAM/DOSE POWDER 17 GM PO DAILY Constipation mix with water, juice, soda, coffee or tea Prednisone 10 MG TABLET 2 TAB PO DAILY COPD Sennosides/Docusate Sodium (Senokot-S Tablet) 8.6 MG-50 MG TABLET 1 TAB PO BID Constipation Tamsulosin HCl 0.4 MG CAP.ER.24H 1 CAP PO DAILY BPH (Reported) Tiotropium [place] (Spiriva) 18 MCG CAP.W.DEV 1 CAP INH DAILY COPD (Reported) Core Measures/Misc (10/28) Sepsis (View protocol) If YES complete Sepsis Event Note If YES complete Sepsis Event Note Resident Review Statement Resident Statement: examined this patient, discussed with internal grinder set up operator, agreed with internal grinder set up operator, amended to note Other Findings: Mr Claudio is a 72 year old man w/ a PMHx of COPD on nightly 2.5 L O2, HTN, Insulin treated DM, CHF, Gout, RA on DMARD tx, past smoker, paroxysmal Afib/ aflutter on AC, obstructive sleep apnea was sent to the emergency room by his visiting nurse when he was found to be hypotensive and tachycardic. Reported an episode of fall, likely pre-syncope without any prodromal symptoms on the am of admissin, but did not have any head injury. Also reported worsening pedal edema and weight gain in the last few months. No chest pain, lightheadedness, vision changes reported. As per the patient, there was a plan for cardioversion by his hide buyer very soon. Reported compliance to his medications, but salt non- discretion for salt intake. He follows up with Dr. López, who has been treating him with metolazone plus furosemide. At the time of admission-temperature 96.7, pulse rate 106--127, respiration 20, blood pressure 100/60--130/70, pulse ox 92% on 2.5 L. General Exam: AAOx3, mild distress, Skin: No rashes, ulcers on the right foot; HEENT: PERRLA, EOMI;Neck: Supple, No JVD ;No cervical lymphadenopathy;CVS: Reg Rate, Normal S1,S2, No MGR;Resp: decreased air entry, no ronchi/rales;Abdomen: Soft, No tenderness, Normal Bowel Sounds;Neuro: Normal Speech, Strength 5/5 b/l x 4 extremities, Sensation intact, CN III-XII NL, Reflexes 2+;Extremities: No cyanosis, 2+ pedal edema, serous discharge. Pertinent lab findings: WBC 13.5 (88% granulocytes),, hemoglobin 13.4, MCV 94.6, platelet count 184. Sodium 139, potassium 3.5, chloride 85, bicarbonate 44 (likely furosemide), anion gap 10, BUN 24, creatinine 0.9. AST 23, ALT 80, Alk PHOSPHATASE 80 TROPONIN I-0.01, PROBNP 797. TSH 1.58 EKG revealed Aflutter, w/ no STTWI Chest x-ray 08/12/2017:Central vascular congestion and small bilateral pleural effusions. Mild CHF is suspected. Echocardiogram: 10 Jul 2017 12:46 Normal left ventricular ejection fraction visually estimated at >55 Left atriaul appendage poorly visualized. Can not rule out left atrial appendage thrombus. Trace tricuspid regurgitation. 1. Acute decompensation of HFpEF 2. PAfib 3. h/o COPD 4. Hypotension w/ e/o sepsis 5. History of O3Zoevetch 6. History of Hypertension 7. History of RA 8. History of BOB on CPAP 9. Metabolic alkalosis ? furosemide use/COPD Etiology in this case is likely acute decompensated heart failure which is a rapidly progressive failure state given a possible precipitating event, increase salt intake on chronic diastolic right-sided+left heart failure. Other etiologies such as dysrhythmia and pulmonary hypertension could be contributing to her decompensation. And etiology for this arrhythmia is likely fluid overload , and electrolyte abnormalities. He should be continued on anticoagulation, we are unsure last echocardiogram/thrombus. Since he has hypotension, likely could be contributing to paroxysmal A. fib, and vice versa, which needs to be controlled. Plan: -admit the patient on telemetry -follow serial EKGs, troponins -daily Ins and Outs -daily weights -Hold iv diuretics, given metabolic alkalosis. Restart after checking BEP in the am. -Check BEP daily while on diuretics. -2D cardiac echo to assess ejection fraction, valvular pathology or regional wall motion abnormalities after conferring w/ cardiology -supplemental oxygen as needed -Elevate head of the bed to reduce venous return, however he doesnt have any orthopnea. -Consider NIPPV to reduce work of breathing, improve oxygenation - Avoid ACEi to decrease afterload in hypotension, restart once able. -CHF diet, 2gm salt restriction -Cash Register Balancer on dietary compliance -Consider cxr after adequate diuresis. -Rate control with calcium channel blockers short acting-30mg q6 in patients given his pulmonary disease. Consider digoxin if he continues to be hypotensive. -Continue insulin sliding scale, levemir bid, accuchecks. -Continue prednisone 20mg daily for COPD, which is chronic. -TRC nebs, symbicort. Chekclist: 1. DVT Ppx- Apixaban 2. Full code 3. CHF diet 4. Consults- cardiology. Narda Khan MD 08/12/17 5952: Core Measures/Misc (10/28) Sepsis (View protocol) If YES complete Sepsis Event Note If YES complete Sepsis Event Note Attending MD Review Statement Attending Statement Attending MD Statement: examined this patient, discuss w/resident/PA/EYE CLINIC MANAGER, agreed w/resident/PA/EYE CLINIC MANAGER, reviewed EMR data (avail) Attending Assessment/Plan: 72M PMH HTN, T2DM, recently diagnosed atrial fibrillation on Eliquis, COPD with chronic hypoxemic respiratory failure on 2L NC, and HFpEF presenting with near syncopal episode, hypotension, and tachycardia. Patient was in his usual state of health, per patient felt lightheaded and nearly passed out, slid to the floor. No LOC or head strike, was awake and alert immediately. Visiting nurse found him hypotensive and tachycardic and sent to ER, where his HR was in 120's, 94/64, given Cardizem 10mg IV with improvement in HR and BP. Patient asymptomatic when interviewed, denying chest pain, palpitations, SOB, lightheadedness. Reports mild LE edema. Clinically euvolemic, CXR read as pulmonary vascular congestion, bicarb 44, normal renal function, EKG atrial fibrillation without ST/T changes. Plan: Tele obs, cardiology consult, increase home Cardizem dose while monitoring BP, continue Eliquis. Will not diurese for now, re-eval in morning, may require Diamox.
[2017-08-12] MEDS ORDERED: PREDNISONE10 M2 PO (21:21)
[2017-08-12 22:01] VITALS: BP 100/60
[2017-08-13 07:05] VITALS: BP 100/60
--- NOTE | 2017-08-13 07:14 | PN- Housestaff ---
Subjective Tele-Events Since Last Visit: A flutter. 86-125. Subjective: slept well last night. Mo events, no complaints. BP was low (100/60).
--- NOTE | 2017-08-13 08:01 | PN-Observation ---
Observation Note Observation Note _ I have personally examined JANETTE PAEZ. him disposition is uncertain at this time. Before a determination can be made, he requires continued observation for CHF exacerbation, irregular heartbeat, near syncopal episode. Assessment/Plan Medical Assessment: Patient is a 72-year-old man with a past medical history of obesity, COPD on nightly 2-3 L O2, HTN, Insulin dependent DM, CHF(diastolic), Gout, RA on DMARD tx, current smoker, paroxysmal Afib, obstructive sleep apnea CC: he was found to be hypotensive and tachycardic. He reported an episode of near syncope on the morning of admission. Recent admission: Patient was admitted this year in June and cardioversion was recommended. But on echo they found a thrombus so they continued him on anticoagulation. He was prescribed metoprolol and Cardizem. But unfortunately he was only taking his metoprolol and not taking Cardizem. Vitals this morning: Afebrile, pulse 72-127, respiratory rate 18, blood pressure 100/60, 95% on 2.5 L. Pertinent labs: WBC 11.5, RBC T3.89, hemoglobin 12.1, hematocrit 36.7, 140, potassium 3.5, chloride 89, carbon dioxide 42, BUN 21, creatinine 0.7 Chest x-ray: Central venous congestion and small bilateral pleural effusions. Suspicion of mild CHF EKG:atrial flutter with ventricular response of 125, right bundle branch block Echocardiogram 07/04/17: Normal size left ventricle. Mild left ventricular dilatation. Normal left ventricular ejection fraction visually estimated at >55 Trace mitral regurgitation. Trace tricuspid regurgitation. Right ventricular systolic pressure estimated to be elevated at 45 mmHg. Assessment and plan: -We decided to admit the patient as we will need at least 2 days to hold his heart rate. -Cardiology rec for a flutter: Continue diltiazem 60 mg per oral q. 6 which will be changed to Cardizem once daily before discharge. Metoprolol resume 100 mg per oral twice daily. Metolazone will be discontinued. -CHF: Cardiology recommended to hold furosemide. Keeping a check on bicarb level is recommended. On improvement of bicarb level we will restart low-dose peripheral furosemide carbon dioxide 42. Anion gap 9 BUN 21 creatinine 0.7 -COPD: Chronic prednisone therapy 2-3 L oxygen -Pedal edema: He had weeping lesions on both his lower limbs for the past 1 week. We have requested wound care to evaluate and treat. -Diabetes mellitus: Accu-Cheks today about 185-250. Rating scale insulin NovoLog and Levemir. -ISABELA/cardioversion: Cardiology Recs as an outpatient. -Diet: CHF diet, 2 g salt restriction Problem List: 1. CHF (congestive heart failure) Qualifiers Heart failure type: unspecified Heart failure chronicity: unspecified Qualified Code: I50.9 - Heart failure, unspecified 2. CHF exacerbation 3. COPD (chronic obstructive pulmonary disease) Subjective Follow-up For: CHF exacerbation Complaints: no complaints Tele-Events Since Last Visit: A flutter Review of Systems Constitutional: Reports: see HPI. Objective Last 24 Hrs of Vital Signs/I&O Vital Signs Date Time Temp Pulse Resp B/P B/P Pulse O2 O2 Flow FiO2 Mean Ox Delivery Rate 08/14 1434 97.7 126 20 112/64 96 Nasal Cannula 08/14 1329 125 114/72 08/14 0906 106 118/70 08/14 0824 95 Nasal 3.0L Cannula 08/14 0800 Nasal 2.5L Cannula 08/14 0656 57 120/70 08/14 0642 97.9 57 20 120/70 94 Nasal 2.0L Cannula 08/14 0000 Nasal 2.5L Cannula / 0000 63 100/76 08/13 2241 98.1 131 18 92 Nasal 2.0L Cannula 08/13 2121 130 100/76 03 1723 130 108/90 08/13 1600 92 Nasal 2.5L Cannula 08/13 1600 92 Nasal 2.5L Cannula Intake & Output 08/14 1600 /04 0800 08/14 0000 Intake Total 460 220 400 Output Total 550 Balance 460 220 -150 Intake, Oral 460 220 400 Number 1 Bowel Movements Output, Urine 550 Patient 243 lb Weight Weight Bed scale Measurement Method Physical Exam General Appearance: Alert, Oriented X3, Cooperative
[2017-08-13 08:30] LABS: ABSOLUTE BASOPHIL COUNT 0 /CUMM (0.0-0.2); ABSOLUTE EOSINOPHIL COUNT 0 /CUMM (0.0-0.7); ABSOLUTE GRANULOCYTE CT 8.7 /CUMM (1.4-6.5); ABSOLUTE MONOCYTE COUNT 0.7 /CUMM (0.10-0.60); BASOPHIL % 0.3 % (0.0-2.0); EOSINOPHIL % 0.2 % (0-5); GRANULOCYTE % 75.7 % (42.2-75.2); HEMATOCRIT 36.7 % (42-52); MEAN CORPUSCULAR HGB 31.2 PG (27.0-31.0); MEAN CORPUSCULAR HGB CONC 33.2 G/DL (33.0-37.0); MEAN CORPUSCULAR VOLUME 94.2 FL (80.0-94.0); MEAN PLATELET VOLUME 7.8 FL (7.4-10.4); PLATELET COUNT 153 /CUMM (130-400); RED BLOOD CELL CT 3.89 /CUMM (4.70-6.10); WHITE BLOOD CELL COUNT 11.5 /CUMM (4.8-10.8)
--- NOTE | 2017-08-13 11:11 | PN- Att Addend ---
Attending Addendum Attending Brief Note Patient seen and examined. Agree with event marketing intern's note. We converted the patient to an admission as I believe he will need at least 48 hours to help get the heart rate under control. This is a 72-year-old male with a past medical history of obesity, hypertension, diabetes, atrial fibrillation on Eliquis, COPD on oxygen and prednisone therapy and chronic diastolic heart failure. He was recently here in June and at that point rate control with optimal blood pressure control was an issue. In the discharge summary, it clearly says that he runs a medium heart rate of around 110 with a systolic of 90 and as long as he is mentating that's okay. They had attempted cardioversion at that point but he had a thrombus and he is continued on anticoagulation for now. He was discharged on metoprolol and Cardizem however this time on admission it appears that he is only taking metoprolol and not Cardizem. He's come in with rapid atrial fibrillation and he had a near syncopal event at home in the setting off hypotension and tachycardia. Right now we have him on by mouth Cardizem with the by mouth Eliquis. We are awaiting a cardiology eval for optimal rate control. There is no obvious evidence of infection but he is on chronic prednisone therapy and we need to have a low threshold to look for that. He has chronic lower extremity wounds that we'll get a wound care eval and follow closely.
--- NOTE | 2017-08-13 12:15 | Cons- Cardiology ---
General Information and HPI Consulting Request Date of Consult: 08/13/17 Requested By: Narda Khan MD Reason for Consult: Atrial flutter, heart failure History of Present Illness: The patient is a 72-year-old male with history of atrial flutter, diastolic heart failure, and COPD who was previously admitted in June with COPD exacerbation and new onset atrial flutter. Cardioversion was postponed because ISABELA revealed possible thrombus in left atrial appendage. He was discharged on Eliquis for anticoagulation, diltiazem for rate control, and on Lasix 20 mg daily with metolazone twice a week. He was sent to the hospital after a fall with presyncope. The patient is a poor historian, however he apparently has had several recent presyncopal episodes. He denies any chest pain, palpitations, shortness of breath, diaphoresis, nausea, or vomiting. He was noted to be in atrial flutter with ventricular rate in the 120s on presentation. He was noted to have elevated bicarbonate level, and diuretic therapy was held. He remains in atrial flutter with mildly elevated rate. He denies any current symptoms. Allergies/Medications Allergies: Coded Allergies: Sulfa (Sulfonamide Antibiotics) (Intermediate, RASH/HIVES 06/06/17) Home Med List: Albuterol Sulfate 2.5 MG/3 ML (0.083 %) VIAL.NEB 1 Vial INH/TAPAN 5 TIMES A DAY COPD (Reported) Albuterol Sulfate 1.25 MG/3 ML VIAL.NEB 1 Vial INH/TAPAN Q4-6 PRN copd . Alendronate Sodium 70 MG TABLET 1 TAB PO QTHURS BONES (Reported) in the morning, at least 30 minutes before the first food, beverage, or medication of the day Allopurinol 300 MG TABLET 1 TAB PO DAILY GOUT (Reported) Apixaban (Eliquis) 5 MG TABLET 1 TAB PO BID Atrial Fibrilliation Budesonide/Formoterol Fumarate (Symbicort 160-4.5 Mcg Inhaler) 160 MCG-4.5 MCG/ ACTUATION HFA.AER.AD 2 PUF INH BID PRN COPD (Reported) Calcium Carbonate/Vitamin D3 (Caltrate 600 + D Tablet) 600 MG-800 TABLET 1 TAB PO DAILY SUPPLEMENT (Reported) Cyanocobalamin (Vitamin B-12) (Cyanocobalamin Injection) 1,000 MCG/ML VIAL 1 ML IM Q30D SUPPLEMENT (Reported) Duloxetine HCl (Cymbalta) 60 MG CAPSULE.DR 1 CAP PO DAILY MENTAL HEALTH ( Reported) Fluticasone Propionate 50 MCG/ACTUATION SPRAY.SUSP 2 SPRAY CELSO DAILY PRN Nasal drip . Folic Acid 1 MG TABLET 1 TAB PO BID SUPPLEMENT (Reported) Furosemide (Lasix) 20 MG TABLET 1 TAB PO DAILY Fluid Retention Insulin Glargine,Hum.rec.anlog (Lantus Solostar) 100 UNIT/ML (3 ML) INSULN.PEN 30 UNIT SC BID DIABETES (Reported) Lovastatin 40 MG TABLET 1 TAB PO QPM CHOLESTEROL (Reported) with food Methotrexate 2.5 MG TABLET 6 TAB PO QTHURS RA (Reported) Metoprolol Tartrate 100 MG TABLET 1 TAB PO BID Atrial Flutter Omeprazole 20 MG CAPSULE.DR 1 CAP PO BID GI (Reported) Oxycodone HCl/Acetaminophen (Oxycodone-Acetaminophen 10-325) 10 MG-325 MG TABLET 1 TAB PO 4XDP PRN PAIN (Reported) Polyethylene Glycol 3350 (Miralax) 17 GRAM/DOSE POWDER 17 GM PO DAILY Constipation mix with water, juice, soda, coffee or tea Prednisone 10 MG TABLET 2 TAB PO DAILY COPD Sennosides/Docusate Sodium (Senokot-S Tablet) 8.6 MG-50 MG TABLET 1 TAB PO BID Constipation Tamsulosin HCl 0.4 MG CAP.ER.24H 1 CAP PO DAILY BPH (Reported) Tiotropium [place] (Spiriva) 18 MCG CAP.W.DEV 1 CAP INH DAILY COPD (Reported) Current Medications: Current Medications Sig/Lakisha Start time Last Medication Dose Route Stop Time Status Admin Acetaminophen 650 MG Q8P PRN 08/12 2114 AC PO Albuterol Sulfate 3 ML EVERY 4 HRS/AWAKE 08/13 1200 AC INH Albuterol Sulfate 3 ML Q4H PRN 08/12 2130 DC 08/13 INH 1105 Allopurinol 300 MG DAILY 08/13 0900 AC 08/13 PO 0832 Apixaban 5 MG BID 08/12 2116 AC 08/13 PO 0832 Atorvastatin Calcium 20 MG 1700 08/13 1700 AC PO Budesonide/ 2 PUF BID 08/12 2130 AC 08/13 Formoterol Fumarate INH 0834 Diltiazem HCl 60 MG Q6 08/12 2144 AC 08/13 PO 0518 Diltiazem HCl 10 MG ONCE ONE 08/12 1745 DC 08/12 IV 08/12 1746 1745 Diltiazem HCl 0 .STK-MED ONE 08/12 1727 DC .ROUTE Duloxetine HCl 60 MG DAILY 08/13 0900 AC 08/13 PO 0833 Fluticasone 2 SPRAY DAILY PRN 08/12 2130 AC Propionate CELSO Folic Acid 1 MG BID 08/13 09 AC 08/13 PO 0832 Furosemide 40 MG DAILY 08/13 09 CAN IV Insulin Aspart 0 TIDAC 08/13 0800 AC 08/13 SC 0833 Insulin Detemir 20 UNITS BID 08/12 2300 AC 08/13 SC 0833 Methotrexate 15 MG QTHURS 08/15 09 AC PO Metoprolol Tartrate 100 MG BID 08/12 2119 DC PO Omeprazole 20 MG BID 08/13 09 DC PO Omeprazole 40 MG DAILY 08/13 0900 AC 08/13 PO 0833 Oxycodone/ 1 TAB Q8P PRN 08/12 2200 AC Acetaminophen PO Polyethylene Glycol 17 GM DAILY 08/13 09 AC 08/13 PO 0832 Potassium Chloride 40 MEQ ONCE ONE 08/12 2145 DC 08/12 PO 08/12 2146 2312 Prednisone 20 MG DAILY 08/13 09 AC 08/13 PO 0916 Senna/Docusate Sodium 1 TAB BID 08/13 09 AC 08/13 PO 0832 Sodium Chloride 1,000 ML ONCE ONE 08/12 1700 CAN IV 08/12 2339 Tiotropium [place] 1 PUF DAILY 08/13 09 AC 08/13 INH 0832 Review of Systems Review of Systems: No hemoptysis. No hematemesis. No nausea. All other systems were reviewed, and were noted to be negative. 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 Refer elsewhere in this and other documents for additional details. According to the patient's report he was asymptomatic and functionally unrestricted by his back prior to this injury. He did have functional limitation and restriction because of his other medical conditions. Refer to other inpatient and outpatient medical records for details regarding pre-injury functional status and deficits. Surgical History Surgical History: none (jjjg) Family History Relations & Conditions If Any: MOTHER FHx: cancer Psychosocial History Services at Home: Nursing, Oxygen (2.5 liters) Smoking Status: Former Smoker ETOH Use: denies use Illicit Drug Use: denies illicit drug use Functional Ability Ambulation: independent, Ambulatory distance was limited by pulmonary condition and not by any spinal symptoms prior to this injury. Pre-injury functional ability is detailed in "Other Medical Hx" section. Exam & Diagnostic Data Vital Signs and I&O Vital Signs Date Time Temp Pulse Resp B/P B/P Pulse O2 O2 Flow FiO2 Mean Ox Delivery Rate 08/13 1107 Nasal 2.5L Cannula 08/13 0800 94 Nasal 2.5L Cannula 08/13 0705 97.6 72 18 100/60 95 Nasal Cannula 08/13 0518 118 100/60 07/ 0000 94 Nasal 2.5L Cannula 08/12 2312 100/60 08/12 2224 94 Nasal 2.0L Cannula 08/12 2201 Nasal 1.5L Cannula 08/12 2201 98.7 120 20 100/60 93 Nasal 1.5L Cannula 08/12 2052 127 18 126/72 91 Room Air 07/ 1815 88 18 130/70 95 Nasal 2.0L Cannula 08/12 1745 97.8 118 22 110/62 /02 1730 Nasal 2.0L Cannula 08/12 1727 126 18 119/76 95 Room Air 07/02 1637 127 18 94/64 96 Nasal 2.0L Cannula 08/12 1437 96.7 106 20 100/60 92 Nasal 2.5L Cannula Intake & Output 08/13 1600 / 0800 / 0000 / 1600 08/12 0800 / 0000 Intake Total 120 Output Total 800 Balance -680 Intake, Oral 120 Output, Urine 800 Patient 240 lb 250 lb Weight Weight Reported by Patient Measurement Method Physical Exam: Gen: The patient is in no acute distress HEENT: Normal nose, ears, and oropharynx. Pupils equal bilaterally. Conjunctiva normal. Neck: Supple with no JVD, no masses, and no thyromegaly Lungs: Clear to auscultation with normal respiratory effort Heart: RRR, S1, S2, no murmurs. 1-2+ peripheral edema, 2+ pulses in the lower extremities bilaterally Abdomen: Soft, nontender, no masses. No hepatomegaly. No splenomegaly Extremities: No clubbing or cyanosis. Normal muscle strength in the upper and lower extremities Skin: Normal skin turgor with bilateral lower extremity wounds. Neuro: Cranial nerves intact. Sensation intact Psych: Alert and oriented x 3 with appropriate affect Labs/Kiel Results: Laboratory Tests 08/13 08/13 08/13 0800 0715 0300 Chemistry Sodium (137 - 145 mmol/L) 140 Cancelled Potassium (3.5 - 5.1 mmol/L) 3.5 Cancelled Chloride (98 - 107 mmol/L) 89 L Cancelled Carbon Dioxide (22 - 30 mmol/L) 42 H Cancelled Anion Gap (5 - 16) 9 Cancelled BUN (9 - 20 mg/dL) 21 H Cancelled Creatinine (0.7 - 1.2 mg/dL) 0.7 Cancelled Estimated GFR (>60 ml/min) > 60 BUN/Creatinine Ratio (7 - 25 %) 30.0 H Cancelled Troponin I (<0.11 ng/ml) Cancelled < 0.01 Hematology CBC w Diff NO MAN DIFF REQ WBC (4.8 - 10.8 /CUMM) 11.5 H RBC (4.70 - 6.10 /CUMM) 3.89 L Hgb (14.0 - 18.0 G/DL) 12.1 L Hct (42 - 52 %) 36.7 L MCV (80.0 - 94.0 FL) 94.2 H MCH (27.0 - 31.0 PG) 31.2 H MCHC (33.0 - 37.0 G/DL) 33.2 RDW (11.5 - 14.5 %) 18.0 H Plt Count (130 - 400 /CUMM) 153 MPV (7.4 - 10.4 FL) 7.8 Gran % (42.2 - 75.2 %) 75.7 H Lymphocytes % (20.5 - 51.1 %) 17.3 L Monocytes % (1.7 - 9.3 %) 6.5 Eosinophils % (0 - 5 %) 0.2 Basophils % (0.0 - 2.0 %) 0.3 Absolute Granulocytes (1.4 - 6.5 /CUMM) 8.7 H Absolute Lymphocytes (1.2 - 3.4 /CUMM) 2.0 Absolute Monocytes (0.10 - 0.60 /CUMM) 0.7 H Absolute Eosinophils (0.0 - 0.7 /CUMM) 0 Absolute Basophils (0.0 - 0.2 /CUMM) 0 08/13 08/12 08/12 0020 1700 1652 Chemistry Sodium (137 - 145 mmol/L) 139 Potassium (3.5 - 5.1 mmol/L) 3.5 Chloride (98 - 107 mmol/L) 85 L Carbon Dioxide (22 - 30 mmol/L) 44 H Anion Gap (5 - 16) 10 BUN (9 - 20 mg/dL) 24 H Creatinine (0.7 - 1.2 mg/dL) 0.9 Estimated GFR (>60 ml/min) > 60 BUN/Creatinine Ratio (7 - 25 %) 26.7 H Glucose (65 - 99 mg/dL) 112 H Lactic Acid (0.7 - 2.1 mmol/L) 1.5 Calcium (8.4 - 10.2 mg/dL) 9.8 Magnesium (1.6 - 2.3 mg/dL) 1.7 Total Bilirubin (0.2 - 1.3 mg/dL) 1.1 AST (17 - 59 U/L) 23 ALT (21 - 72 U/L) 80 H Alkaline Phosphatase (< 127 U/L) 80 Troponin I (<0.11 ng/ml) < 0.01 < 0.01 Eon-Q-Fllyqxtcylq Pept (<125 pg/mL) Cancelled 797 H Total Protein (6.3 - 8.2 g/dL) 6.4 Albumin (3.5 - 5.0 g/dL) 3.7 Globulin (1.9 - 4.2 gm/dL) 2.7 Albumin/Globulin Ratio (1.1 - 2.2 %) 1.4 TSH (0.270 - 4.200 uIU/mL) 1.580 Hematology CBC w Diff NO MAN DIFF REQ WBC (4.8 - 10.8 /CUMM) 13.5 H RBC (4.70 - 6.10 /CUMM) 4.36 L Hgb (14.0 - 18.0 G/DL) 13.4 L Hct (42 - 52 %) 41.2 L MCV (80.0 - 94.0 FL) 94.6 H MCH (27.0 - 31.0 PG) 30.7 MCHC (33.0 - 37.0 G/DL) 32.5 L RDW (11.5 - 14.5 %) 17.6 H Plt Count (130 - 400 /CUMM) 184 MPV (7.4 - 10.4 FL) 7.8 Gran % (42.2 - 75.2 %) 88.8 H Lymphocytes % (20.5 - 51.1 %) 7.6 L Monocytes % (1.7 - 9.3 %) 3.5 Eosinophils % (0 - 5 %) 0.1 Basophils % (0.0 - 2.0 %) 0 Absolute Granulocytes (1.4 - 6.5 /CUMM) 12.0 H Absolute Lymphocytes (1.2 - 3.4 /CUMM) 1.0 L Absolute Monocytes (0.10 - 0.60 /CUMM) 0.5 Absolute Eosinophils (0.0 - 0.7 /CUMM) 0 Absolute Basophils (0.0 - 0.2 /CUMM) 0 Diagnostic Data EKG Results EKG tracings independently reviewed, and reveals atrial flutter with ventricular response of 125, right bundle branch block CXR Results Central vascular congestion and small bilateral pleural effusions. Mild CHF is suspected. Other Results Echocardiogram 07/04/17: Normal size left ventricle. Mild left ventricular dilatation. Normal left ventricular ejection fraction visually estimated at >55 Trace mitral regurgitation. Trace tricuspid regurgitation. Right ventricular systolic pressure estimated to be elevated at 45 mmHg. Assessment/Plan Assessment/Plan Assessment: 72-year-old male with history of atrial fibrillation, COPD, and chronic HFpEF resenting after several recent syncopal episodes. He is noted to be in atrial flutter with elevated ventricular rate. He was discharged on both metoprolol and diltiazem but he apparently has been taking metoprolol at home without diltiazem. He is noted to have elevated bicarbonate level. Recommendations: * Continue diltiazem 60 mg p.o. every 6 hours, with plan to change to Cardizem CD prior to discharge * Resume metoprolol 100 mg p.o. twice daily * Would hold furosemide today, and consider restarting low-dose oral furosemide once bicarbonate level has improved. * Would discontinue metolazone, and avoid restarting * Repeat ISABELA/cardioversion is planned to be arranged as an outpatient Consult Acknowledgment - Thank you for your consult request.
[2017-08-13] MEDS ORDERED: METOPROLOL TAR100 M1 PO (13:26)
[2017-08-13 14:40] VITALS: BP 110/60
[2017-08-14 06:42] VITALS: BP 120/70
[2017-08-14 07:34] LABS: ABSOLUTE BASOPHIL COUNT 0 /CUMM (0.0-0.2); ABSOLUTE EOSINOPHIL COUNT 0.1 /CUMM (0.0-0.7); ABSOLUTE GRANULOCYTE CT 8.8 /CUMM (1.4-6.5); ABSOLUTE LYMPH COUNT 1.4 /CUMM (1.2-3.4); ABSOLUTE MONOCYTE COUNT 0.7 /CUMM (0.10-0.60); BASOPHIL % 0.2 % (0.0-2.0); EOSINOPHIL % 0.5 % (0-5); GRANULOCYTE % 80.7 % (42.2-75.2); HEMATOCRIT 36.7 % (42-52); MEAN CORPUSCULAR HGB 31.4 PG (27.0-31.0); MEAN CORPUSCULAR HGB CONC 32.9 G/DL (33.0-37.0); MEAN CORPUSCULAR VOLUME 95.6 FL (80.0-94.0); PLATELET COUNT 141 /CUMM (130-400); RBC DISTRIBUTION WIDTH 19.1 % (11.5-14.5); RED BLOOD CELL CT 3.84 /CUMM (4.70-6.10); WHITE BLOOD CELL COUNT 10.9 /CUMM (4.8-10.8)
--- NOTE | 2017-08-14 08:08 | PN- Housestaff ---
Maddi Pringle 08/14/17 0807: Subjective Follow-up For: CHF exacerbation Complaints: no complaints Tele-Events Since Last Visit: A flutter with a heart rate of 63-87. No acute events. Subjective: He slept well last night. No acute events. Review of Systems Constitutional: Reports: see HPI. Objective Last 24 Hrs of Vital Signs/I&O Vital Signs Date Time Temp Pulse Resp B/P B/P Pulse O2 O2 Flow FiO2 Mean Ox Delivery Rate 08/14 1434 97.7 126 20 112/64 96 Nasal Cannula 08/14 1329 125 114/72 08/14 0906 106 118/70 08/14 0824 95 Nasal 3.0L Cannula 08/14 0800 Nasal 2.5L Cannula 08/14 0656 57 120/70 08/14 0642 97.9 57 20 120/70 94 Nasal 2.0L Cannula 08/14 0000 Nasal 2.5L Cannula 08/14 0000 63 100/76 08/13 2241 98.1 131 18 92 Nasal 2.0L Cannula 08/13 2121 130 100/76 08/13 1723 130 108/90 08/13 1600 92 Nasal 2.5L Cannula 08/13 1600 92 Nasal 2.5L Cannula Intake & Output 08/14 1600 08/14 0800 08/14 0000 Intake Total 460 220 400 Output Total 550 Balance 460 220 -150 Intake, Oral 460 220 400 Number 1 Bowel Movements Output, Urine 550 Patient 243 lb Weight Weight Bed scale Measurement Method Physical Exam General Appearance: Alert, Oriented X3, Cooperative, No Acute Distress Skin: No Rashes (B/L L/L in wraps by wound care) Skin Temp/Moisture Exam: Warm/Dry Sepsis Skin Exam (color): Normal for Ethnicity HEENT: Atraumatic, EOMI Neck: Supple Cardiovascular: Regular Rate, Normal S1, Normal S2 Lungs: Clear to Auscultation, Normal Air Movement Abdomen: Normal Bowel Sounds, Soft, No Tenderness Extremities: No Clubbing, No Cyanosis, b/l l/l edema Assessment/Plan Assessment: Patient is a 72-year-old male with a past medical history of COPD on nightly 2-3 L oxygen, hypertension, diabetes mellitus insulin-dependent, CHF, gout, re: on DMARD treatment, current smoker, paroxysmal A. fib, obstructive sleep apnea on CPAP. His presenting complaint was presyncope, and increasing pedal edema. He was hypotensive and tachycardic so his home nurse sent him to the ER. His vitals today are temperature of 97.9, pulse 57, respiratory rate 20, BP 120/ 70, 95% on 3 L oxygen. Pertinent labs are WBC 10.9, hemoglobin 12.1, hematocrit 36.7, platelet count of 141. Sodium 139, potassium 4.4, chloride 93, bicarb 38, BUN 19, creatinine 0.8. Assessment and plan: -Patient is on the telemetry floor as an admission. -a flutter: Continue diltiazem 60 mg per oral q. 6 which will be changed to Cardizem once daily before discharge. 100 mg per oral twice daily. These are as per cardiology recommendations. -HR: Plan today is to monitor the heart rate. Overnight his heart rate was 57. This morning he ranged from 106-126. -CHF and metabolic alkalosis: His bicarb today is 38 which came down from 42 yesterday. Lasix is held for today. Reassess tomorrow. -COPD: Chronic prednisone therapy 2-3 L oxygen -Pedal edema and skin breakdown: Wound care is taking care of the patient. -Diabetes mellitus: Accu-Cheks today are 175-189. Patient is on sliding scale insulinNovoLog and Levemir. -samantha: Refuses CPAP -Diet: CHF diet, 2 g salt restriction Problem List: 1. Full code status 2. CHF exacerbation Pain Ratin Pain Location: None Pain Goal: Remain pain free Pain Plan: Remain pain-free Tomorrow's Labs & Rationales: CBC, BEP ZuleymaSeven tomasconcetta 08/14/17 1301: Attending MD Review Statement Attending Statement Attending MD Statement: examined this patient, discuss w/resident/PA/PRESCHOOL HEAD TEACHER, agreed w/resident/PA/PRESCHOOL HEAD TEACHER, discussed with family, reviewed EMR data (avail), discussed with nursing, discussed with case mgmt, reviewed images, amended to note Attending Assessment/Plan: Patient admitted here for near syncope and hypotension. Patient also uncontrolled afib on arrival. Patient is on metoprolol and cardizem for rate control. Cardiology has been consulted. Anticoagulation as per cardiology. Overnight patient had epsiode of HR 57. Continue with telemetry monitoring and see if cardizem can be down titrated 2/2 bradycardia. Please follow up with cardiology. Metabolic contraction alkalosis Stop lasix follow bmp. Plan of care d/wed patient bedside.
--- NOTE | 2017-08-14 10:37 | PN- Cardiology ---
Subjective Subjective: No acute events, no complaints. HR 70-80 AFLT. Objective Vital Signs and I&Os Vital Signs Date Time Temp Pulse Resp B/P B/P Pulse O2 O2 Flow FiO2 Mean Ox Delivery Rate 08/14 0906 106 118/70 08/14 0824 95 Nasal 3.0L Cannula 08/14 0800 Nasal 2.5L Cannula 08/14 0656 57 120/70 08/14 0642 97.9 57 20 120/70 94 Nasal 2.0L Cannula 08/14 0000 Nasal 2.5L Cannula 08/14 0000 63 100/76 08/13 2241 98.1 131 18 92 Nasal 2.0L Cannula 08/13 2121 130 100/76 08/13 1723 130 108/90 08/13 1600 92 Nasal 2.5L Cannula 08/13 1600 92 Nasal 2.5L Cannula 08/13 1440 98.3 110 18 110/60 97 Nasal 2.5L Cannula 08/13 1205 94 Nasal Cannula 08/13 1107 Nasal 2.5L Cannula Intake & Output 08/14 1600 08/14 0800 08/14 0000 08/13 1600 08/13 0800 08/13 0000 Intake Total 220 400 400 120 Output Total 550 1200 800 Balance 220 -150 -800 -680 Intake, Oral 220 400 400 120 Number 1 Bowel Movements Output, Urine 550 1200 800 Patient 243 lb 240 lb 240 lb Weight Weight Bed scale Bed scale Measurement Method Physical Exam: Gen: The patient is in no acute distress HEENT: Normal nose, ears, and oropharynx. Pupils equal bilaterally. Conjunctiva normal. Neck: Supple with no JVD, no masses, and no thyromegaly Lungs: Clear to auscultation with normal respiratory effort Heart: RRR, S1, S2, no murmurs. 1-2+ peripheral edema, 2+ pulses in the lower extremities bilaterally Abdomen: Soft, nontender, no masses. No hepatomegaly. No splenomegaly Extremities: No clubbing or cyanosis. Normal muscle strength in the upper and lower extremities Current Medications: Current Medications Sig/Lakisha Start time Last Medication Dose Route Stop Time Status Admin Acetaminophen 650 MG Q8P PRN / 2115 AC PO Albuterol Sulfate 3 ML EVERY 4 HRS/AWAKE 08/13 1200 AC 08/14 INH 0822 Albuterol Sulfate 3 ML Q4H PRN 08/12 2130 DC 07/03 INH 1105 Allopurinol 300 MG DAILY 08/13 0900 AC 08/14 PO 0905 Apixaban 5 MG BID 08/12 2117 AC 08/14 PO 0906 Atorvastatin Calcium 20 MG 1700 08/13 1700 AC 08/13 PO 1721 Budesonide/ 2 PUF BID 08/12 2130 AC 08/14 Formoterol Fumarate INH 0902 Diltiazem HCl 60 MG Q6 08/12 2145 AC 08/14 PO 0656 Duloxetine HCl 60 MG DAILY 08/13 0900 AC 08/14 PO 0905 Fluticasone 2 SPRAY DAILY PRN 08/12 2130 AC Propionate CELSO Folic Acid 1 MG BID 08/13 0900 AC 08/14 PO 0906 Furosemide 20 MG DAILY 08/14 0911 AC 08/14 PO 0935 Insulin Aspart 0 TIDAC 08/13 0800 AC 08/14 SC 0900 Insulin Detemir 20 UNITS BID 08/12 2300 AC 08/14 SC 0901 Methotrexate 15 MG QTHURS 08/15 0900 AC PO Metoprolol Tartrate 100 MG BID 08/13 2100 AC 08/14 PO 0906 Omeprazole 40 MG DAILY 08/13 0900 AC 08/14 PO 0905 Oxycodone/ 1 TAB Q8P PRN 08/12 2200 AC Acetaminophen PO Polyethylene Glycol 17 GM DAILY 08/13 0900 AC 08/14 PO 0901 Prednisone 20 MG DAILY 08/13 0900 AC 08/14 PO 0905 Senna/Docusate Sodium 1 TAB BID 08/13 0900 AC 08/14 PO 0907 Tiotropium [place] 1 PUF DAILY 08/13 0900 AC 08/14 INH 0901 Results Last 48 Hrs of Labs/Mics: Laboratory Tests 08/14/17 0625: Anion Gap 8, Estimated GFR > 60, BUN/Creatinine Ratio 23.8, CBC w Diff NO MAN DIFF REQ, RBC 3.84 L, MCV 95.6 H, MCH 31.4 H, MCHC 32.9 L, RDW 19.1 H, MPV 8.0, Gran % 80.7 H, Lymphocytes % 12.6 L, Monocytes % 6.0, Eosinophils % 0.5, Basophils % 0.2, Absolute Granulocytes 8.8 H, Absolute Lymphocytes 1.4, Absolute Monocytes 0.7 H, Absolute Eosinophils 0.1, Absolute Basophils 0 08/13/17 0800: Troponin I Cancelled 08/13/17 0715: Anion Gap 9, Estimated GFR > 60, BUN/Creatinine Ratio 30.0 H, Troponin I < 0.01 , CBC w Diff NO MAN DIFF REQ, RBC 3.89 L, MCV 94.2 H, MCH 31.2 H, MCHC 33.2, RDW 18.0 H, MPV 7.8, Gran % 75.7 H, Lymphocytes % 17.3 L, Monocytes % 6.5, Eosinophils % 0.2, Basophils % 0.3, Absolute Granulocytes 8.7 H, Absolute Lymphocytes 2.0, Absolute Monocytes 0.7 H, Absolute Eosinophils 0, Absolute Basophils 0 08/13/17 0300: Sodium Cancelled, Potassium Cancelled, Chloride Cancelled, Carbon Dioxide Cancelled, Anion Gap Cancelled, BUN Cancelled, Creatinine Cancelled, BUN/ Creatinine Ratio Cancelled 08/13/17 0020: Troponin I < 0.01 08/12/17 1700: [id number] Pept Cancelled 08/12/17 1652: Anion Gap 10, Estimated GFR > 60, BUN/Creatinine Ratio 26.7 H, Glucose 112 H, Lactic Acid 1.5, Calcium 9.8, Magnesium 1.7, Total Bilirubin 1.1, AST 23, ALT 80 H, Alkaline Phosphatase 80, Troponin I < 0.01, Fjp-[id number]-Pfkwkarzotl Pept 797 H, Total Protein 6.4, Albumin 3.7, Globulin 2.7, Albumin/Globulin Ratio 1.4, TSH 1.580, CBC w Diff NO MAN DIFF REQ, RBC 4.36 L, MCV 94.6 H, MCH 30.7, MCHC 32.5 L, RDW 17.6 H, MPV 7.8, Gran % 88.8 H, Lymphocytes % 7.6 L, Monocytes % 3.5, Eosinophils % 0.1, Basophils % 0, Absolute Granulocytes 12.0 H, Absolute Lymphocytes 1.0 L, Absolute Monocytes 0.5, Absolute Eosinophils 0, Absolute Basophils 0 Assessment/Plan Assessment/Plan Atrial fibrillation/flutter, COPD, HFpEF. PLAN: hold furosemide as patient is still in contraction alcalosis and not clinically in heart failure. Continue telemetry? Yes
[2017-08-14 14:34] VITALS: BP 112/64
[2017-08-14 23:06] VITALS: BP 112/60
--- NOTE | 2017-08-15 06:32 | PN- Housestaff ---
Maddi Pringle 08/15/17 0631: Subjective Follow-up For: CHF exacerbation Complaints: no complaints Tele-Events Since Last Visit: A flutter, heart rate 82-125 Subjective: Complains or acute events overnight. Review of Systems Constitutional: Reports: see HPI. Objective Last 24 Hrs of Vital Signs/I&O Vital Signs Date Time Temp Pulse Resp B/P B/P Pulse O2 O2 Flow FiO2 Mean Ox Delivery Rate 08/152 98.4 122 18 108/60 83 08/15 2029 130/84 08/15 1645 Nasal 2.5L Cannula 08/15 1630 94 Nasal 2.5L Cannula 08/15 1520 97.5 95 20 130/84 97 Nasal 2.5L Cannula 08/15 0849 92 Nasal 2.5L Cannula 08/15 0800 Room Air 2.5L 08/15 0642 97.9 94 20 104/78 94 Nasal 2.5L Cannula 08/15 0614 92 104/78 07 2316 125 102/68 07 2306 97.9 97 18 112/60 94 Nasal 2.5L Cannula Intake & Output 08/15 1600 08/15 0800 07 0000 Intake Total 960 440 440 Output Total Balance 960 440 440 Intake, IV 0 Intake, Oral 960 440 440 Number 0 Bowel Movements Patient 246 lb Weight Physical Exam General Appearance: Alert, Oriented X3, Cooperative, No Acute Distress Skin: No Rashes, No Breakdown Skin Temp/Moisture Exam: Cool/Dry Sepsis Skin Exam (color): Normal for Ethnicity HEENT: Atraumatic, EOMI Neck: Supple Cardiovascular: Regular Rate, Normal S1, Normal S2 Lungs: Clear to Auscultation, Normal Air Movement Abdomen: Normal Bowel Sounds, Soft, No Tenderness Neurological: Normal Speech, Strength at 5/5 X4 Ext, Normal Tone Extremities: No Clubbing, No Cyanosis (b/l l/l edema), wounds on both feet Assessment/Plan Assessment: Patient is a 72-year-old male with a past medical history of COPD on nightly 2-3 L oxygen, hypertension, diabetes mellitus insulin-dependent, CHF, gout, re: on DMARD treatment, current smoker, paroxysmal A. fib, obstructive sleep apnea on CPAP. His presenting complaint was presyncope, and increasing pedal edema. He was hypotensive and tachycardic so his home nurse sent him to the ER. Vital signs today were temperature 97.9 heart rate 94, respiratory rate 20, BP 104/78, 94% on 2.5 L oxygen Pertinent labs WBC of 12.3, RBC 3.93, hemoglobin 12.4, hematocrit 37.4,Sodium 139 potassium 4.0, chloride 93, bicarb 37, anion gap 9, BUN 32, creatinine 0.8 Assessment and plan: -a flutter: Plan is to remain on telemetry for another 24 hours and to continue metoprolol and diltiazem at the current dose. Can be transitioned to oral Cardizem tomorrow -Leg edema and wounds: Restrict the sodium in the diet, leg elevation, low compression support stockings, ambulation self-limited. Wounds can be followed up as an outpatient. -COPD: Chronic prednisone therapy 2-3 L oxygen -Pedal edema and skin breakdown: Vascular consult was placed -Diabetes mellitus:sliding scale insulinNovoLog and Levemir. -Diet: CHF diet, 2 g salt restriction Problem List: 1. Hypertension 2. Diabetes 3. CHF exacerbation Pain Ratin Pain Location: None Pain Goal: Remain pain free Pain Plan: Remain pain-free Tomorrow's Labs & Rationales: cbc, bep Maxwell TINEO,Kathy 08/15/17 1202: Attending MD Review Statement Attending Statement Attending MD Statement: examined this patient, discuss w/resident/PA/SENIOR ENVIRONMENTAL PRACTICE LEADER, agreed w/resident/PA/SENIOR ENVIRONMENTAL PRACTICE LEADER, reviewed EMR data (avail), discussed with nursing, discussed with case mgmt, amended to note Attending Assessment/Plan: Patient seen and examined. Resting comfortably not in any acute distress. No issues overnight per nursing staff. No events on telemetry monitoring. Denies chest pain. Denies shortness of breath. Denies cough. Examination he has fair air entry bilaterally with no added sounds. Has bilateral lower extremity edema with wounds on both feet at the crevice between the foot and leg. No surrounding erythema. No discharge. No evidence of infection. Problems: 1. Atrial flutter; rate controlled 2. Chronic diastolic heart failure; not currently decompensated 3. Chronic lower extremity pedal edema; likely due to venous stasis 4. Chronic venous stasis ulcerations on both feet 5. COPD; oxygen dependent 6. Leukocytosis; likely secondary to chronic steroid therapy. 7. Insulin-dependent diabetes mellitus 8. Metabolic alkalosis Plan: -Continue current rate control regimen. -Labs show prerenal azotemia. He does have alkalosis (likely combination of volume contraction and chronic CO2 retention) that appears to be improving, however he is more prerenal today. Continue to hold his diuretic regimen. He is on Lasix 20 mg daily at home. Apparently metolazone was recently added to his regimen. We will consider resuming patient on Lasix only at the time of discharge. Follow-up with his child and family services worker. -Follow-up with the cardiology service regarding need for further telemetry monitoring. -Wound consult was placed. Recommendations are to obtain vascular surgery consultation for evaluation of his venous stasis ulcers. -Glucose levels IN the 200s. Patient is chronically on steroid therapy. Recommend increasing his insulin regimen back to his home dose of 30 units of glargine twice daily. -Mobilize patient as tolerated. -Repeat serum chemistry tomorrow to monitor his bicarb and creatinine. Repeat CBC only if there is a change in his clinical status.
[2017-08-15 06:42] VITALS: BP 104/78
[2017-08-15 07:39] LABS: ABSOLUTE BASOPHIL COUNT 0 /CUMM (0.0-0.2); ABSOLUTE EOSINOPHIL COUNT 0 /CUMM (0.0-0.7); ABSOLUTE GRANULOCYTE CT 10.2 /CUMM (1.4-6.5); ABSOLUTE LYMPH COUNT 1.2 /CUMM (1.2-3.4); ABSOLUTE MONOCYTE COUNT 0.8 /CUMM (0.10-0.60); BASOPHIL % 0.3 % (0.0-2.0); EOSINOPHIL % 0.4 % (0-5); GRANULOCYTE % 82.7 % (42.2-75.2); HEMATOCRIT 37.4 % (42-52); MEAN CORPUSCULAR HGB 31.5 PG (27.0-31.0); MEAN CORPUSCULAR HGB CONC 33.2 G/DL (33.0-37.0); MEAN CORPUSCULAR VOLUME 95.1 FL (80.0-94.0); MEAN PLATELET VOLUME 7.8 FL (7.4-10.4); PLATELET COUNT 147 /CUMM (130-400); RBC DISTRIBUTION WIDTH 18.5 % (11.5-14.5); RED BLOOD CELL CT 3.93 /CUMM (4.70-6.10); WHITE BLOOD CELL COUNT 12.3 /CUMM (4.8-10.8)
--- NOTE | 2017-08-15 12:35 | PN- Cardiology ---
Subjective Subjective: Patient sitting at the bedside. No new complaints. Lower extremity edema stable and possibly slightly improved. Remains in atrial flutter with reasonable rate control Objective Vital Signs and I&Os Vital Signs Date Time Temp Pulse Resp B/P B/P Pulse O2 O2 Flow FiO2 Mean Ox Delivery Rate 08/15 0849 92 Nasal 2.5L Cannula 08/15 0800 Room Air 2.5L 08/15 0642 97.9 94 20 104/78 94 Nasal 2.5L Cannula 08/15 0614 92 104/78 08/14 2316 125 102/68 08/14 2306 97.9 97 18 112/60 94 Nasal 2.5L Cannula 08/14 2114 110 112/60 08/14 2102 94 Nasal 2.5L Cannula 08/14 1822 106 110/60 08/14 1700 90 Nasal 2.0L Cannula 08/14 1434 97.7 126 20 112/64 96 Nasal Cannula 08/14 1329 125 114/72 Intake & Output 08/15 1600 08/15 0808/15 0000 08/14 1600 08/14 0800 08/14 0000 Intake Total 440 440 460 220 400 Output Total 550 Balance 440 440 460 220 -150 Intake, Oral 440 440 460 220 400 Number 1 Bowel Movements Output, Urine 550 Patient 246 lb 243 lb Weight Weight Bed scale Measurement Method Physical Exam: General Appearance: well developed/nourished, alert, awake, oriented Head: normal HEENT: Normal Neck: supple, JVP normal, carotid upstrokes normal bilaterally, no masses or thyromegaly Respiratory: chest non-tender, clear to auscultation and percussion bilaterally Cardiovascular: Irregular rate/rhythm, normal S1, S2, 1-2/6 systolic murmur Abdomen: normal bowel sounds, soft, non-tender Extremities: normal inspection, 2+ edema Vascular: Pulses are 2+ and equal bilaterally Neurologic: Grossly normal/nonfocal Current Medications: Current Medications Sig/Lakisha Start time Last Medication Dose Route Stop Time Status Admin Acetaminophen 650 MG Q8P PRN 08/12 2114 AC PO Albuterol Sulfate 3 ML EVERY 4 HRS/AWAKE 08/13 1200 AC 08/15 INH 1144 Allopurinol 300 MG DAILY 08/13 0900 AC 08/15 PO 0813 Apixaban 5 MG BID 08/12 2116 AC 08/15 PO 0811 Atorvastatin Calcium 20 MG 1700 08/13 1700 AC 08/14 PO 1822 Budesonide/ 2 PUF BID 08/12 2130 AC 08/15 Formoterol Fumarate INH 0816 Diltiazem HCl 60 MG Q6 08/12 2145 AC 08/15 PO 1205 Duloxetine HCl 60 MG DAILY 08/13 0900 AC 08/15 PO 0811 Fluticasone 2 SPRAY DAILY PRN 08/12 2130 AC Propionate CELSO Folic Acid 1 MG BID 08/13 0900 AC 08/15 PO 0811 Insulin Aspart 0 TIDAC 08/13 0800 AC 08/15 SC 1211 Insulin Detemir 20 UNITS BID 08/12 2300 AC 08/15 SC 0811 Methotrexate 15 MG QTHURS 08/15 09 AC 08/15 PO 0812 Metoprolol Tartrate 100 MG BID 08/13 2100 AC 08/15 PO 0812 Nystatin 5 ML 4 TIMES/DAY PRN 08/14 1745 AC 08/14 PO 1822 Omeprazole 40 MG DAILY AC 08/15 07 AC 08/15 PO 0614 Omeprazole 40 MG DAILY 08/13 0900 DC 08/14 PO 0905 Oxycodone/ 1 TAB Q8P PRN 08/12 2200 AC Acetaminophen PO Polyethylene Glycol 17 GM DAILY 08/13 0900 AC 08/15 PO 0812 Prednisone 20 MG DAILY 08/13 0900 AC 08/15 PO 0812 Senna/Docusate Sodium 1 TAB BID 08/13 0900 AC 08/15 PO 0812 Tiotropium [place]ren[place] 1 PUF DAILY 08/13 0900 AC 08/15 INH 0812 Results Last 48 Hrs of Labs/Mics: Laboratory Tests 08/15/17 0658: Anion Gap 9, Estimated GFR > 60, BUN/Creatinine Ratio 40.0 H, CBC w Diff NO MAN DIFF REQ, RBC 3.93 L, MCV 95.1 H, MCH 31.5 H, MCHC 33.2, RDW 18.5 H, MPV 7.8 , Gran % 82.7 H, Lymphocytes % 10.1 L, Monocytes % 6.5, Eosinophils % 0.4, Basophils % 0.3, Absolute Granulocytes 10.2 H, Absolute Lymphocytes 1.2, Absolute Monocytes 0.8 H, Absolute Eosinophils 0, Absolute Basophils 0 08/14/17 0625: Anion Gap 8, Estimated GFR > 60, BUN/Creatinine Ratio 23.8, CBC w Diff NO MAN DIFF REQ, RBC 3.84 L, MCV 95.6 H, MCH 31.4 H, MCHC 32.9 L, RDW 19.1 H, MPV 8.0, Gran % 80.7 H, Lymphocytes % 12.6 L, Monocytes % 6.0, Eosinophils % 0.5, Basophils % 0.2, Absolute Granulocytes 8.8 H, Absolute Lymphocytes 1.4, Absolute Monocytes 0.7 H, Absolute Eosinophils 0.1, Absolute Basophils 0 Assessment/Plan Assessment/Plan Assessment: 1. Atrial fibrillation/flutter with elevated rate 2. Acute on chronic hfPef 3. Worsening lower extremity edema with venous insufficiency and stasis changes 4. Macrocytic anemia 5. Mild pulmonary hypertension 6. COPD/sleep apnea 7. Diabetes Recommendations: -Maintain on telemetry for another 24 hours -Continue metoprolol at current dose -Continue diltiazem 60 mg every 6 hours -If rate remains stable, transition to once daily Cardizem tomorrow -In view of the patient's lower extremity edema which limits his ambulation, and in view of the fact that the patient has known sleep apnea, COPD, and a history of hypercapnia respiratory failure which could lead to elevated bicarb levels, I would favor restarting anticoagulation in his case -Continue all conservative measures for control of lower extremity edema including sodium restriction, leg elevation, etc. Please have the patient fitted for low compression support stockings -Out of bed as tolerated -Plans for ISABELA/cardioversion in 2 weeks * Continue telemetry? Yes
[2017-08-15 15:20] VITALS: BP 130/84
--- NOTE | 2017-08-15 17:15 | Cons- Vascular Surgery ---
General Information and HPI Consulting Request Date of Consult: 08/15/17 Requested By: Kathy Arreola MD Reason for Consult: Edema, leg wounds Source of Information: patient History of Present Illness: 72-year-old male admitted symptoms of palpitations, leg edema. He was seen by many many months ago in the office for chronic leg edema. COPD, diastolic heart failure, now with A. fib. Superficial lower extremity wounds, due to chronic leg edema. He is going to a wound clinic recently, and he states compression has been used. Vascular surgeon was asked to evaluate today. He had normal lower extremity arterial testing in the office a few months ago. Allergies/Medications Allergies: Coded Allergies: Sulfa (Sulfonamide Antibiotics) (Intermediate, RASH/HIVES 06/06/17) Home Med List: Albuterol Sulfate 2.5 MG/3 ML (0.083 %) VIAL.NEB 1 Vial INH/TAPAN 5 TIMES A DAY COPD (Reported) Albuterol Sulfate 1.25 MG/3 ML VIAL.NEB 1 Vial INH/TAPAN Q4-6 PRN copd . Alendronate Sodium 70 MG TABLET 1 TAB PO QTHURS BONES (Reported) in the morning, at least 30 minutes before the first food, beverage, or medication of the day Allopurinol 300 MG TABLET 1 TAB PO DAILY GOUT (Reported) Apixaban (Eliquis) 5 MG TABLET 1 TAB PO BID Atrial Fibrilliation Budesonide/Formoterol Fumarate (Symbicort 160-4.5 Mcg Inhaler) 160 MCG-4.5 MCG/ ACTUATION HFA.AER.AD 2 PUF INH BID PRN COPD (Reported) Calcium Carbonate/Vitamin D3 (Caltrate 600 + D Tablet) 600 MG-800 TABLET 1 TAB PO DAILY SUPPLEMENT (Reported) Cyanocobalamin (Vitamin B-12) (Cyanocobalamin Injection) 1,000 MCG/ML VIAL 1 ML IM Q30D SUPPLEMENT (Reported) Duloxetine HCl (Cymbalta) 60 MG CAPSULE.DR 1 CAP PO DAILY MENTAL HEALTH ( Reported) Fluticasone Propionate 50 MCG/ACTUATION SPRAY.SUSP 2 SPRAY CELSO DAILY PRN Nasal drip . Folic Acid 1 MG TABLET 1 TAB PO BID SUPPLEMENT (Reported) Furosemide (Lasix) 20 MG TABLET 1 TAB PO DAILY Fluid Retention Insulin Glargine,Hum.rec.anlog (Lantus Solostar) 100 UNIT/ML (3 ML) INSULN.PEN 30 UNIT SC BID DIABETES (Reported) Lovastatin 40 MG TABLET 1 TAB PO QPM CHOLESTEROL (Reported) with food Methotrexate 2.5 MG TABLET 6 TAB PO QTHURS RA (Reported) Metoprolol Tartrate 100 MG TABLET 1 TAB PO BID Atrial Flutter . Omeprazole 20 MG CAPSULE.DR 1 CAP PO BID GI (Reported) Oxycodone HCl/Acetaminophen (Oxycodone-Acetaminophen 10-325) 10 MG-325 MG TABLET 1 TAB PO 4XDP PRN PAIN (Reported) Polyethylene Glycol 3350 (Miralax) 17 GRAM/DOSE POWDER 17 GM PO DAILY Constipation mix with water, juice, soda, coffee or tea Prednisone 10 MG TABLET 2 TAB PO DAILY COPD Sennosides/Docusate Sodium (Senokot-S Tablet) 8.6 MG-50 MG TABLET 1 TAB PO BID Constipation Tamsulosin HCl 0.4 MG CAP.ER.24H 1 CAP PO DAILY BPH (Reported) Tiotropium [place] (Spiriva) 18 MCG CAP.W.DEV 1 CAP INH DAILY COPD (Reported) Current Medications: Current Medications Sig/Lakisha Start time Last Medication Dose Route Stop Time Status Admin Acetaminophen 650 MG Q8P PRN 08/12 2115 AC PO Albuterol Sulfate 3 ML EVERY 4 HRS/AWAKE 08/13 1200 AC 08/15 INH 1625 Allopurinol 300 MG DAILY 08/13 09 AC 08/15 PO 0813 Apixaban 5 MG BID 08/12 2117 AC 08/15 PO 0811 Atorvastatin Calcium 20 MG 1700 08/13 1700 AC 08/14 PO 1822 Budesonide/ 2 PUF BID 08/12 2130 AC 08/15 Formoterol Fumarate INH 0816 Diltiazem HCl 60 MG Q6 08/12 2145 AC 08/15 PO 1205 Duloxetine HCl 60 MG DAILY 08/13 0900 AC 08/15 PO 0811 Fluticasone 2 SPRAY DAILY PRN 08/12 2130 AC Propionate CELSO Folic Acid 1 MG BID 08/13 0900 AC 08/15 PO 0811 Insulin Aspart 0 TIDAC 08/13 0800 AC 08/15 SC 1211 Insulin Detemir 30 UNITS BID 08/15 2100 AC SC Insulin Detemir 20 UNITS BID 08/12 2300 DC 08/15 SC 0811 Methotrexate 15 MG QTHURS 08/15 0900 AC 08/15 PO 0812 Metoprolol Tartrate 100 MG BID 08/13 2100 AC 08/15 PO 0812 Nystatin 5 ML 4 TIMES/DAY PRN 08/14 1745 AC 08/14 PO 1822 Omeprazole 40 MG DAILY AC 08/15 0700 AC 08/15 PO 0614 Omeprazole 40 MG DAILY 08/13 0900 DC 08/14 PO 0905 Oxycodone/ 1 TAB Q8P PRN 08/12 2200 AC Acetaminophen PO Polyethylene Glycol 17 GM DAILY 08/13 09 AC 08/15 PO 0812 Prednisone 20 MG DAILY 08/13 09 AC 08/15 PO 0812 Senna/Docusate Sodium 1 TAB BID 08/13 899 AC 08/15 PO 0812 Tiotropium [place] 1 PUF DAILY 08/13 899 AC 08/15 INH 0812 Past History Medical History Blood Transfusion Hx: No Neurological: NONE EENT: NONE Cardiovascular: AFIB, CHF, hypertension Respiratory: COPD, obstructive sleep apnea, with ongoing tobacco use disorder 02 DEPENDANT Gastrointestinal: NONE Hepatic: NONE Renal: benign prost hyperplasia Musculoskeletal: rheumatoid arthritis Psychiatric: NONE Endocrine: INSULIN DEPENDENT DIABETIC TYPE II Blood Disorders: NONE Cancer(s): BASAL CELL CA 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 Refer elsewhere in this and other documents for additional details. According to the patient's report he was asymptomatic and functionally unrestricted by his back prior to this injury. He did have functional limitation and restriction because of his other medical conditions. Refer to other inpatient and outpatient medical records for details regarding pre-injury functional status and deficits. Surgical History Pertinent Surgical History: none (jjjg) Family History Relations & Conditions If Any: MOTHER FHx: cancer Psychosocial History Services at Home: Nursing, Oxygen (2.5 liters) Smoking Status: Former Smoker ETOH Use: denies use Illicit Drug Use: denies illicit drug use Functional Ability Ambulation: independent, Ambulatory distance was limited by pulmonary condition and not by any spinal symptoms prior to this injury. Pre-injury functional ability is detailed in "Other Medical Hx" section. Review of Systems Review of Systems Constitutional: Denies: chills, fever. EENTM: Denies: no symptoms. Cardiovascular: Reports: edema, palpitations. GI: Denies: no symptoms. Genitourinary: Denies: no symptoms. Skin: Reports: lesions. Neurological/Psychological: Denies: no symptoms. Hematologic/Endocrine: Denies: bleeding. Exam & Diagnostic Data Vital Signs and I&O Vital Signs Date Time Temp Pulse Resp B/P B/P Pulse O2 O2 Flow FiO2 Mean Ox Delivery Rate 08/15 1630 94 Nasal 2.5L Cannula 08/15 1520 97.5 95 20 130/84 97 Nasal 2.5L Cannula 08/15 0849 92 Nasal 2.5L Cannula 08/15 0800 Room Air 2.5L 08/15 0642 97.9 94 20 104/78 94 Nasal 2.5L Cannula 08/15 0614 92 104/78 08/14 2316 125 102/68 08/14 2306 97.9 97 18 112/60 94 Nasal 2.5L Cannula 08/14 2114 110 112/60 08/14 2102 94 Nasal 2.5L Cannula 08/14 1822 106 110/60 Intake & Output 08/15 1600 08/15 0800 08/15 0000 08/14 1600 08/14 0800 08/14 0000 Intake Total 960 440 440 460 220 400 Output Total 550 Balance 960 440 440 460 220 -150 Intake, IV 0 Intake, Oral 960 440 440 460 220 400 Number 0 1 Bowel Movements Output, Urine 550 Patient 111.64 kg 110.308 kg Weight Weight Bed scale Measurement Method Physical Exam General Appearance: well developed/nourished, no apparent distress, mild dyspnea at rest Head: atraumatic, normal appearance Eyes: Bilateral: normal appearance. Neck: normal inspection Cardiovascular: edema Gastrointestinal: normal bowel sounds Extremities: 3+ edema bilateral lower extremities Skin: normal color, warm/dry Other Physical Findings: Small superficial wounds right lower ankle, left lower clarke Assessment/Plan Assessment/Plan 1. Bilateral lower leg edema. Patient with recent diagnosis of congestive heart failure. Recommend diuresis as per medicine. Leg elevation as tolerated 2. Lateral superficial wounds, due to uncontrolled edema. Light lower extremity compression can be applied from toes to upper calf as tolerated, but then, CHF, fluid status is primary concern. Should follow up in wound clinic for his chronic wounds. Problem List: 1. Leg edema 2. Open leg wound Consult Acknowledgment - Thank you for your consult request.
[2017-08-15 22:02] VITALS: BP 108/60
--- NOTE | 2017-08-16 06:54 | PN- Housestaff ---
Maddi Pringle 08/16/17 0654: Subjective Follow-up For: History of CHF exacerbation Complaints: no complaints Tele-Events Since Last Visit: Atrial flutter, heart rate 70-122. Subjective: No complaints/no acute events overnight. Review of Systems Constitutional: Reports: see HPI. Objective Last 24 Hrs of Vital Signs/I&O Vital Signs Date Time Temp Pulse Resp B/P B/P Pulse O2 O2 Flow FiO2 Mean Ox Delivery Rate 08/16 0828 92 Nasal 2.5L Cannula 08/16 0800 Nasal 2.5L Cannula 08/16 0746 105 128/64 08/16 0746 105 128/64 08/16 0721 98.1 105 18 128/64 92 Nasal Cannula 08/16 0024 125 118/78 08/16 0000 Nasal 2.5L Cannula 08/15 2215 94 Nasal 2.5L Cannula 08/15 2202 98.4 122 18 108/60 83 / 2029 130/84 08/15 1645 Nasal 2.5L Cannula 08/15 1630 94 Nasal 2.5L Cannula Intake & Output 08/16 1600 08/16 0800 08/16 0000 Intake Total 440 300 Output Total Balance 440 300 Intake, Oral 440 300 Patient 244 lb Weight Physical Exam General Appearance: Alert, Oriented X3, Cooperative Skin: No Rashes Skin Temp/Moisture Exam: Cool/Dry HEENT: Atraumatic Cardiovascular: Regular Rate, Normal S1, Normal S2, No Murmurs Lungs: Clear to Auscultation, Normal Air Movement Abdomen: Normal Bowel Sounds, Soft, No Tenderness Neurological: Normal Speech, Strength at 5/5 X4 Ext Assessment/Plan Assessment: Patient is a 72-year-old male with a past medical history of COPD on nightly 2-3 L oxygen, hypertension, diabetes mellitus insulin-dependent, CHF, gout, RA on DMARD treatment, current smoker, paroxysmal A. fib, obstructive sleep apnea on CPAP. His presenting complaint was presyncope, and increasing pedal edema. He was hypotensive and tachycardic on presentation. Vital signs: temperature of 98.1, pulse 105, respiratory rate 18, 128/64, 92% on 2.5 L. Pertinent labs: sodium 139, chloride 94, bicarb 36, anion gap 10, BUN 35, creatinine 0.9, WBC 12.3, hemoglobin 12.5, hematocrit 37.9 Assessment and plan: -He will continue metoprolol at current dose -he will resume his oral Lasix 20 mg alternating with 40 mg every other day if necessary. He will follow-up in the CHF clinic for IV Lasix as needed to achieve better control -COPD: 2 L of oxygen is his baseline -Pedal wounds: Clinically improved, and there is no drainage from the wounds on both legs. He will continue lower extremity dressing as an outpatient. -Diabetes mellitus:sliding scale insulinNovoLog and Levemir. -Diet: CHF diet, 2 g salt restriction Problem List: 1. Diabetes 2. Rheumatoid arthritis 3. Hypertension 4. Hyperlipidemia 5. Full code status 6. History of chronic carbon dioxide retention 7. Open leg wound 8. CHF exacerbation Pain Ratin Pain Location: None Pain Goal: Remain pain free Pain Plan: remain pain-free. Tomorrow's Labs & Rationales: ADRIANNA Arreola MD,Kathy 08/16/17 1229: Attending MD Review Statement Attending Statement Attending MD Statement: examined this patient, discuss w/resident/PA/REGISTERED NURSE OBSTETRICS, agreed w/resident/PA/REGISTERED NURSE OBSTETRICS, reviewed EMR data (avail), discussed with nursing, discussed with case mgmt, amended to note Attending Assessment/Plan: Patient seen and examined. Resting comfortably not in any acute distress. No issues overnight. No new complaints this morning. Maintaining saturation on his baseline 2 L of oxygen. On examination he has adequate entry bilaterally with no added sounds. Continues to have lower extremity pedal edema. He has no drainage from the wounds on both legs. He was evaluated by the vascular surgery service. Recommendations are for lower extremity dressing and management of his volume status. We will resume his diuretic therapy with Lasix orally. Case has been discussed with the cardiology service patient will follow-up in the CHF clinic for administration of intravenous Lasix as needed in order to achieve better volume control.
[2017-08-16 07:21] VITALS: BP 128/64
[2017-08-16 07:46] VITALS: BP 128/64
[2017-08-16 08:01] LABS: ABSOLUTE BASOPHIL COUNT 0 /CUMM (0.0-0.2); ABSOLUTE EOSINOPHIL COUNT 0.1 /CUMM (0.0-0.7); ABSOLUTE GRANULOCYTE CT 9.5 /CUMM (1.4-6.5); ABSOLUTE LYMPH COUNT 1.8 /CUMM (1.2-3.4); ABSOLUTE MONOCYTE COUNT 0.9 /CUMM (0.10-0.60); BASOPHIL % 0.3 % (0.0-2.0); EOSINOPHIL % 0.6 % (0-5); GRANULOCYTE % 77.4 % (42.2-75.2); HEMATOCRIT 37.9 % (42-52); MEAN CORPUSCULAR HGB 31.4 PG (27.0-31.0); MEAN CORPUSCULAR VOLUME 95.4 FL (80.0-94.0); MEAN PLATELET VOLUME 7.9 FL (7.4-10.4); PLATELET COUNT 147 /CUMM (130-400); RBC DISTRIBUTION WIDTH 19.1 % (11.5-14.5); RED BLOOD CELL CT 3.97 /CUMM (4.70-6.10); WHITE BLOOD CELL COUNT 12.3 /CUMM (4.8-10.8)
[2017-08-16] MEDS ORDERED: LOPRESSOR100 M1 PO (11:30)
[2017-08-16] MEDS ORDERED: PREDNISONE20 M1 PO (11:31)
[2017-08-16] MEDS ORDERED: CARDIZEM CD240 M1 PO ×2 (11:33→11:36)
--- NOTE | 2017-08-16 11:47 | Patient Discharge Instructions ---
Discharge Instructions General Discharge Information You were seen/treated for: Atrial fibrillation with rapid ventricular rate Bilateral chronic pedal edema Acute on chronic congestive heart failure Watch for these problems: In case of chest pain, palpitation, nausea, vomiting please go to the nearest emergency room Special Instructions: Please follow-up with your primary care provider within 1-2 weeks of discharge Please follow-up with your shield operator within 1-2 weeks of discharge Please follow-up with the CHF clinic twice a week. Diet Continue normal diet: No Recommended Diet: Heart Healthy Activity Activity Self Limited: Yes Acute Coronary Syndrome Inclusion Criteria At DC or during hospital stay patient has or had the following: ACS DIAGNOSIS No Discharge Core Measures Meds if any: Prescribed or Continued at Discharge Meds if any: NOT Prescribed or Continued at Discharge Congestive Heart Failure Inclusion Criteria At DC or during hospital stay patient has or had the following: CHF DIAGNOSIS No Discharge Core Measures Meds if any: Prescribed or Continued at Discharge Meds if any: NOT Prescribed or Continued at Discharge Cerebrovascular accident Inclusion Criteria At DC or during hospital stay patient has or had the following: CVA/TIA Diagnosis No Discharge Core Measures Meds if any: Prescribed or Continued at Discharge Meds if any: NOT Prescribed or Continued at Discharge Venous thromboembolism Inclusion Criteria VTE Diagnosis No VTE Type NONE VTE Confirmed by (Test) NONE Discharge Core Measures - Per Current guidelines, there needs to be overlap - treatment for the first 5 days of Warfarin therapy. - If discharged on Warfarin prior to 5 days of - overlap therapy, the patient will need to be - assessed for post discharge needs including - *Post discharge parental anticoagulation - *Warfarin and/or parental anticoagulation education - *Follow up date to check INR post discharge At least 5 days overlap therapy as Inpatient No Meds if any: Prescribed or Continued at Discharge Note: Overlap Therapy is Warfarin and Anticoagulant Meds if any: NOT Prescribed or Continued at Discharge
--- NOTE | 2017-08-16 13:17 | PN- Cardiology ---
Subjective Subjective: Clinically about the same. Persistent lower extremity edema noted. Objective Vital Signs and I&Os Vital Signs Date Time Temp Pulse Resp B/P B/P Pulse O2 O2 Flow FiO2 Mean Ox Delivery Rate 08/17 0728 92 Nasal 2.5L Cannula 08/16 0800 Nasal 2.5L Cannula 08/16 0746 105 128/64 08/16 0746 105 128/64 08/16 0721 98.1 105 18 128/64 92 Nasal Cannula 08/16 0024 125 118/78 08/16 0000 Nasal 2.5L Cannula 08/15 2215 94 Nasal 2.5L Cannula 08/15 2202 98.4 122 18 108/60 83 08/15 2029 130/84 08/15 1645 Nasal 2.5L Cannula 08/15 1630 94 Nasal 2.5L Cannula 08/15 1520 97.5 95 20 130/84 97 Nasal 2.5L Cannula Intake & Output 08/16 1600 08/16 0800 08/16 0000 08/15 1600 08/15 0808/15 0000 Intake Total 440 300 960 440 440 Output Total Balance 440 300 960 440 440 Intake, IV 0 Intake, Oral 440 300 960 440 440 Number 0 Bowel Movements Patient 244 lb 246 lb Weight Current Medications: Current Medications Sig/Lakisha Start time Last Medication Dose Route Stop Time Status Admin Acetaminophen 650 MG Q8P PRN 08/12 2114 AC PO Albuterol Sulfate 3 ML EVERY 4 HRS/AWAKE 08/13 1200 AC 08/16 INH 1152 Allopurinol 300 MG DAILY 08/13 09 AC 08/16 PO 0746 Apixaban 5 MG BID 08/12 2116 AC 08/16 PO 0745 Atorvastatin Calcium 20 MG 1700 08/13 1700 AC 08/15 PO 1702 Budesonide/ 2 PUF BID 08/12 2130 AC 08/16 Formoterol Fumarate INH 0746 Diltiazem HCl 240 MG DAILY 08/16 0956 AC 08/16 PO 1200 Diltiazem HCl 60 MG Q6 08/12 2145 DC 08/16 PO 0746 Duloxetine HCl 60 MG DAILY 08/13 899 AC 08/16 PO 0745 Fluticasone 2 SPRAY DAILY PRN 08/12 2130 AC Propionate CELSO Folic Acid 1 MG BID 08/13 899 AC 08/16 PO 0745 Furosemide 20 MG DAILY 08/16 0815 AC 08/16 PO 0933 Insulin Aspart 0 TIDAC 08/13 08 AC 08/16 SC 1200 Insulin Detemir 30 UNITS BID 08/15 2099 AC 08/16 SC 0743 Methotrexate 15 MG QTHURS 08/15 899 AC 08/15 PO 0812 Metoprolol Tartrate 100 MG BID 08/13 2099 AC 08/16 PO 0746 Nystatin 5 ML 4 TIMES/DAY PRN 08/14 1745 AC 08/14 PO 1822 Omeprazole 40 MG DAILY AC 08/15 07 AC 08/16 PO 0602 Oxycodone/ 1 TAB Q8P PRN 08/12 2200 AC Acetaminophen PO Polyethylene Glycol 17 GM DAILY 08/13 899 AC 08/16 PO 0744 Prednisone 20 MG DAILY 08/13 899 AC 08/16 PO 0746 Senna/Docusate Sodium 1 TAB BID 08/13 899 AC 08/16 PO 0746 Tiotropium [place] 1 PUF DAILY 08/13 899 AC 08/16 INH 0746 Results Last 48 Hrs of Labs/Mics: Laboratory Tests 08/16/17 0656: Anion Gap 10, Estimated GFR > 60, BUN/Creatinine Ratio 38.9 H, CBC w Diff NO MAN DIFF REQ, RBC 3.97 L, MCV 95.4 H, MCH 31.4 H, MCHC 33.0, RDW 19.1 H, MPV 7.9, Gran % 77.4 H, Lymphocytes % 14.4 L, Monocytes % 7.3, Eosinophils % 0.6, Basophils % 0.3, Absolute Granulocytes 9.5 H, Absolute Lymphocytes 1.8, Absolute Monocytes 0.9 H, Absolute Eosinophils 0.1, Absolute Basophils 0 08/15/17 0658: Anion Gap 9, Estimated GFR > 60, BUN/Creatinine Ratio 40.0 H, CBC w Diff NO MAN DIFF REQ, RBC 3.93 L, MCV 95.1 H, MCH 31.5 H, MCHC 33.2, RDW 18.5 H, MPV 7.8 , Gran % 82.7 H, Lymphocytes % 10.1 L, Monocytes % 6.5, Eosinophils % 0.4, Basophils % 0.3, Absolute Granulocytes 10.2 H, Absolute Lymphocytes 1.2, Absolute Monocytes 0.8 H, Absolute Eosinophils 0, Absolute Basophils 0 Assessment/Plan Assessment/Plan Assessment: 1. Atrial fibrillation/flutter with elevated rate 2. Acute on chronic hfPef 3. Worsening lower extremity edema with venous insufficiency and stasis changes 4. Macrocytic anemia 5. Mild pulmonary hypertension 6. COPD/sleep apnea 7. Diabetes Recommendations: -Out of bed as tolerated -Continue metoprolol at current dose -Transition diltiazem to 240 mg CD daily -In view of the patient's lower extremity edema which limits his ambulation, and in view of the fact that the patient has known sleep apnea, COPD, and a history of hypercapnia respiratory failure which could lead to elevated bicarb levels, I would favor restarting anticoagulation in his case -Continue all conservative measures for control of lower extremity edema including sodium restriction, leg elevation, etc. Please have the patient fitted for low compression support stockings -Plans for ISABELA/cardioversion in 2 weeks -At discharge, I would maintain the patient on at least 20 mg of Lasix daily. This could be increased to 20 mg alternating with 40 mg every other day if necessary. Metolazone on hold. Continue telemetry? No
--- NOTE | 2017-08-16 13:23 | Discharge Summary ---
Visit Information Visit Dates Admission Date: 08/13/17 Discharge Date: 08/16/17 Hospital Course Course Attending Physician: Kathy Arreola MD Primary Care Physician: Tanmay Zee MD Hospital Course: Patient is a 72-year-old male with a past medical history of COPD on nightly 2-3 L oxygen, hypertension, diabetes mellitus insulin-dependent, CHF, gout, RA on DMARD treatment, current smoker, paroxysmal A. fib, obstructive sleep apnea on CPAP, cataracts, glaucoma. PC was palpitations and presyncopal episode. Pty states an episode of palpitations 1 week before presentation too. Patient denies loss of consciousness, dizziness, fall, shortness of breath with exertion.[facility] He was using his walker for mobility actively. He had b/l l/l edema and weeping wounds on adm. At the time of admission, his vitals were: Temp 96.7 pulse 106, respiration 20, BP 100/60, 92% on nasal cannula 2.5%. Labs on adm: wbcs 11.5, hgb 12.1, hct 36.7, plt 153 Trops: <0.01---<0.01---<0.01 CXR: cantral vascular congestion and small b/l pleuralk effusions. Mild CHF is suspected Hospital course: Patient admitted to [facility] for near syncope and hypotension. Plan: -a flutter: Continue diltiazem 60 mg per oral q. 6 which will be changed to cardizem 240 mg CD on d/c -Anticoagulation:as per cardiology recs -HR:Pt is on night monitor -CHF and metabolic alkalosis: Metabolic contraction alkalosis. Plan was to stop lasix & follow bmp, and reassess accordingly. resume his diuretic therapy with 20 mg of Lasix dailyalternating with 40 mg every other day if necessary. Metolazone on hold. follow-up in the CHF clinic for administration of intravenous Lasix as needed in order to achieve better volume control. -COPD: Chronic prednisone therapy, 2-3 L oxygen-2l is his baseline at home -Pedal edema and skin breakdown: Wound care and vascular surg were consulted. On d/c continued to have lower extremity pedal edema, but very much improved, no drainage from the wounds on both legs. He was evaluated by the vascular surgery service. Recommendations are for lower extremity dressing and management of his volume status, low sodium diet, leg elevation. -Diabetes mellitus: Accu-Cheks, sliding scale insulinNovoLog and Levemir. -samantha:CPAP -Diet: CHF diet, 2 g salt restriction -Plans for ISABELA/cardioversion in 2 weeks Allergies: Coded Allergies: Sulfa (Sulfonamide Antibiotics) (Intermediate, RASH/HIVES 06/06/17) Pertinent Lab Results: Chest x-ray:Central vascular congestion and small bilateral pleural effusions. Mild CHF is suspected. Disposition Summary Disposition Principal Diagnosis: p.afib, CHF exacerbation/acute on chronic congestive heart failure, diabetes mellitus Additional Diagnosis: A. fib, bilateral chronic pedal edema, Discharge Disposition: home health services Discharge Instructions General Discharge Information Code Status: Full Code Patient's Diet: - Patient's Activity: Self-limited Follow-Up Instructions/Appts: Medications at Discharge Discharge Medications: Continue taking these medications: Duloxetine HCl (Cymbalta) 60 MG CAPSULE.DR 1 Capsule ORAL DAILY Comments: Last Taken:08/16/17 Time:45 Allopurinol (Allopurinol) 300 MG TABLET 1 Tablet ORAL DAILY Comments: Last Taken: 08/16/17 Time: 745 Folic Acid (Folic Acid) 1 MG TABLET 1 Tablet ORAL TWICE DAILY Comments: Last Taken:08/16/17 Time:45 Omeprazole (Omeprazole) 20 MG CAPSULE.DR 1 Capsule ORAL TWICE DAILY Comments: Last Taken: 08/16/17 Time: 06 Lovastatin (Lovastatin) 40 MG TABLET 1 Tablet ORAL Every night Instructions: with food Comments: NOT GIVEN IN HOSPITAL Insulin Glargine,Hum.rec.anlog (Lantus Solostar) 100 UNIT/ML (3 ML) INSULN.PEN 30 Unit Inject into fatty tissue TWICE DAILY Comments: [facility] Last Taken: 08/16/17 Time: 744 Budesonide/Formoterol Fumarate (Symbicort 160-4.5 Mcg Inhaler) 160 MCG-4.5 MCG/ ACTUATION HFA.AER.AD 2 Puff Inhale through mouth TWICE DAILY as needed for COPD Comments: Last Taken: 08/16/17 Time: 745 Albuterol Sulfate (Albuterol Sulfate) 2.5 MG/3 ML (0.083 %) VIAL.NEB 1 Vial Inhale Solution 5 TIMES A DAY Comments: Last Taken: 07/11/17 Time: 11:47 AM Methotrexate (Methotrexate) 2.5 MG TABLET 6 Tablet ORAL EVERY SATURDAY Comments: Last Taken:08/15/17 Time:0812 Oxycodone HCl/Acetaminophen (Oxycodone-Acetaminophen 10-325) 10 MG-325 MG TABLET 1 Tablet ORAL 4 times daily as needed as needed for PAIN Qty = 120 Comments: NOT GIVEN IN HOSPITAL Alendronate Sodium (Alendronate Sodium) 70 MG TABLET 1 Tablet ORAL EVERY SATURDAY Qty = 12 Instructions: in the morning, at least 30 minutes before the first food, beverage, or medication of the day Comments: NOT GIVEN THIS ADMISSION Calcium Carbonate/Vitamin D3 (Caltrate 600 + D Tablet) 600 MG-800 TABLET 1 Tablet ORAL DAILY Comments: NOT GIVEN IN HOSPITAL Cyanocobalamin (Vitamin B-12) (Cyanocobalamin Injection) 1,000 MCG/ML VIAL 1 Milliliters INTRAMUSC ONCE A MONTH Comments: NOT TAKEN IN HOSPITAL Tiotropium [place] (Spiriva) 18 MCG CAP.W.DEV 1 Capsule Inhale through mouth DAILY Qty = 90 Comments: Last Taken:08/16/17 Time:07 Fluticasone Propionate (Fluticasone Propionate) 50 MCG/ACTUATION SPRAY.SUSP 2 [place] In the nose DAILY as needed for Nasal drip Qty = 1 Instructions: . Comments: NOT GIVEN THIS ADMISSION Albuterol Sulfate (Albuterol Sulfate) 1.25 MG/3 ML VIAL.NEB 1 Vial Inhale Solution EVERY 4-6 HOURS as needed for copd Qty = 1 Instructions: . Comments: Last Taken: 08/16/17 Time: 08 Tamsulosin HCl (Tamsulosin HCl) 0.4 MG CAP.ER.24H 1 Capsule ORAL DAILY Comments: NOT GIVEN THIS ADMISSION Furosemide (Lasix) 20 MG TABLET 1 Tablet ORAL DAILY Qty = 30 Comments: Last Taken:08/16/17 Time:09 Apixaban (Eliquis) 5 MG TABLET 1 Tablet ORAL TWICE DAILY Qty = 60 Comments: Last Taken:08/16/17 Time:0745 Sennosides/Docusate Sodium (Senokot-S Tablet) 8.6 MG-50 MG TABLET 1 Tablet ORAL TWICE DAILY Qty = 60 Comments: Last Taken:08/16/17 Time:07 Polyethylene Glycol 3350 (Miralax) 17 GRAM/DOSE POWDER 17 Gram ORAL DAILY Qty = 255 Instructions: mix with water, juice, soda, coffee or tea Comments: Last Taken:08/16/17 Time:744 Metoprolol Tartrate (Lopressor) 100 MG TABLET 1 Tablet ORAL TWICE DAILY Qty = 60 Prednisone (Prednisone) 20 MG TABLET 1 Tablet ORAL DAILY Qty = 30 Start taking the following new medications: Diltiazem HCl (Cardizem Cd) 240 MG CAP.ER.24H 240 Milligram ORAL DAILY Qty = 30 No Refills Instructions: . Comments: . Copies To: Tanmay Zee MD Metoprolol Tartrate (Lopressor) 100 MG TABLET 1 Tablet ORAL TWICE DAILY Qty = 60 Prednisone (Prednisone) 20 MG TABLET 1 Tablet ORAL DAILY Qty = 30 Start taking the following new medications: Diltiazem HCl (Cardizem Cd) 240 MG CAP.ER.24H 240 Milligram ORAL DAILY Qty = 30 No Refills Instructions: . Comments: . Copies To: Tanmay Zee MD
== END 2017-08-16 12:45 | disposition home health service (06) | DRG 308 ==
LOC: ERH 14:12 → 1NO 18:30 → ERHI 18:30 → ENRESERV 19:30 → ENTRNSPT 20:35 → EDTRNSPTSTS 20:43 → EDTRNSPT 20:43 → 1NO 21:05 → CMPTRNSPT 21:16 → 1NO 08-13 08:53 → ENPENDDIS 08-16 11:09 → ENTRNSPT 08-16 12:22 → EDTRNSPTSTS 08-16 12:35 → 1NO 08-16 12:45 → CMPTRNSPT 08-16 12:50
PROVIDERS: Internal Medicine; Internal Medicine Endocrinology, Diabetes & Metabolism; Physician Assistant Medical; Student in an Organized Health Care Education/Training Program
DX: I48.92 Unspecified atrial flutter (principal); I50.33 Acute on chronic diastolic (congestive) heart failure; E87.3 Alkalosis; J96.11 Chronic respiratory failure with hypoxia; I11.0 Hypertensive heart disease with heart failure; I95.9 Hypotension, unspecified; F17.210 Nicotine dependence, cigarettes, uncomplicated; Z79.01 Long term (current) use of anticoagulants; I27.20 Pulmonary hypertension, unspecified; Z99.81 Dependence on supplemental oxygen; E66.9 Obesity, unspecified; Z68.36 Body mass index [BMI] 36.0-36.9, adult; I48.0 Paroxysmal atrial fibrillation; E11.9 Type 2 diabetes mellitus without complications; H26.9 Unspecified cataract; H40.9 Unspecified glaucoma; Z88.2 Allergy status to sulfonamides; N40.0 Benign prostatic hyperplasia without lower urinary tract symptoms; J44.9 Chronic obstructive pulmonary disease, unspecified; G47.33 Obstructive sleep apnea (adult) (pediatric); M06.9 Rheumatoid arthritis, unspecified; Z79.4 Long term (current) use of insulin; Z79.51 Long term (current) use of inhaled steroids; D53.9 Nutritional anemia, unspecified; E11.51 Type 2 diabetes mellitus with diabetic peripheral angiopathy without gangrene; R00.0 Tachycardia, unspecified; M10.9 Gout, unspecified; E78.5 Hyperlipidemia, unspecified; E11.621 Type 2 diabetes mellitus with foot ulcer; L97.521 Non-pressure chronic ulcer of other part of left foot limited to breakdown of skin; L97.511 Non-pressure chronic ulcer of other part of right foot limited to breakdown of skin
CPT/HCPCS: 1NP; 36415; 36592; 71046; 82436; 93005; 93010; 96374; 97116-GO; 97161-GP; J3490; J7512; J8610

== ENCOUNTER 2017-08-23 11:39 | Observation (INO) | payer OTHER, MEDICARE ==
[~2017-08-23] VITALS: Ht 172.7 cm; Wt 114.1 kg
[~2017-08-23 11:39] MED LIST changes: +CARDIZEM CD240 M1 PO; +LOPRESSOR100 M1 PO; +PREDNISONE20 M1 PO
--- NOTE | 2017-08-23 12:06 | ED GENERAL ADULT ---
See Addendum History of Present Illness General Chief Complaint: Dyspnea (COPD, CHF, Other) Stated Complaint: DIFF BREATHING, DROPPING HEART RATE PER FAMILY Source: patient, family Exam Limitations: poor historian Vital Signs & Intake/Output Vital Signs & Intake/Output Vital Signs Date Time Temp Pulse Resp B/P B/P Pulse O2 O2 Flow FiO2 Mean Ox Delivery Rate 08/23 1205 24 110/77 88 Nasal 3.0L Cannula Allergies Coded Allergies: Sulfa (Sulfonamide Antibiotics) (Intermediate, RASH/HIVES 06/06/17) Reconcile Medications Albuterol Sulfate 2.5 MG/3 ML (0.083 %) VIAL.NEB 1 Vial INH/TAPAN 5 TIMES A DAY COPD (Reported) Alendronate Sodium 70 MG TABLET 1 TAB PO QTHURS BONES (Reported) in the morning, at least 30 minutes before the first food, beverage, or medication of the day Allopurinol 300 MG TABLET 1 TAB PO DAILY GOUT (Reported) Apixaban (Eliquis) 5 MG TABLET 1 TAB PO BID Atrial Fibrilliation Budesonide/Formoterol Fumarate (Symbicort 160-4.5 Mcg Inhaler) 160 MCG-4.5 MCG/ ACTUATION HFA.AER.AD 2 PUF INH BID COPD (Reported) Cyanocobalamin (Vitamin B-12) (Cyanocobalamin Injection) 1,000 MCG/ML VIAL 1 ML IM Q30D SUPPLEMENT (Reported) Diltiazem HCl (Cardizem Cd) 240 MG CAP.ER.24H 240 MG PO DAILY heart . Docusate Sodium (Stool Softener) 100 MG CAPSULE 1 CAP PO BID STOOL SOFTENER ( Reported) Duloxetine HCl (Cymbalta) 60 MG CAPSULE.DR 1 CAP PO DAILY MENTAL HEALTH ( Reported) Folic Acid 1 MG TABLET 1 TAB PO BID SUPPLEMENT (Reported) Furosemide (Lasix) 20 MG TABLET 1 TAB PO DAILY Fluid Retention Insulin Glargine,Hum.rec.anlog (Lantus Solostar) 100 UNIT/ML (3 ML) INSULN.PEN 30 UNIT SC BID DIABETES (Reported) Lovastatin 40 MG TABLET 1 TAB PO QPM CHOLESTEROL (Reported) with food Methotrexate 2.5 MG TABLET 6 TAB PO QTHURS RA (Reported) Metoprolol Tartrate (Lopressor) 100 MG TABLET 1 TAB PO BID heart (Reported) Omeprazole 20 MG CAPSULE.DR 1 CAP PO BID GI (Reported) Oxycodone HCl/Acetaminophen (Oxycodone-Acetaminophen 10-325) 10 MG-325 MG TABLET 1 TAB PO 4XDP PRN PAIN (Reported) Prednisone 20 MG TABLET 1 TAB PO DAILY copd (Reported) Tamsulosin HCl 0.4 MG CAP.ER.24H 1 CAP PO QPM BPH (Reported) Triage Nurses Notes Reviewed? yes Onset: Abrupt Duration: day(s): Timing: recent history HPI: 08/23/17 12:40 AM 72-year-old man presents to the emergency department for difficulty breathing, altered mental status, and fluid gain. According to the patient's sister he was confused over the past 24 hours and is now complaining of difficulty breathing. On my exam he is awake and alert. He does have anasarca. Past medical history of A. fib. Past History Travel History [place] past 21 [place] No Medical History Any Pertinent Medical History? see below for history Neurological: NONE EENT: NONE Cardiovascular: AFIB, CHF, hypertension Respiratory: COPD, obstructive sleep apnea, with ongoing tobacco use disorder 02 DEPENDANT Gastrointestinal: NONE Hepatic: NONE Renal: benign prost hyperplasia Musculoskeletal: rheumatoid arthritis Psychiatric: NONE Endocrine: INSULIN DEPENDENT DIABETIC TYPE II Blood Disorders: NONE Cancer(s): BASAL CELL CA BABCOCK TESTER/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 Refer elsewhere in this and other documents for additional details. According to the patient's report he was asymptomatic and functionally unrestricted by his back prior to this injury. He did have functional limitation and restriction because of his other medical conditions. Refer to other inpatient and outpatient medical records for details regarding pre-injury functional status and deficits. History of MRSA: No History of VRE: Yes History of CDIFF: No Surgical History Surgical History: N (jjjg) Psychosocial History Who do you live with Spouse Services at Home Nursing, Oxygen (2.5 liters) What is your primary language Tongan Tobacco Use: Quit >30 days ago Family History Family History, If Any: MOTHER FHx: cancer Hx Contributory? No Review of Systems Review of Systems Constitutional: Denies: fever. EENTM: Reports: no symptoms. Respiratory: Reports: short of breath. Cardiovascular: Reports: palpitations. Denies: chest pain. GI: Denies: abdominal pain. Genitourinary: Reports: no symptoms. Musculoskeletal: Reports: no symptoms. Skin: Reports: no symptoms. Neurological/Psychological: Reports: confusion. Hematologic/Endocrine: Reports: no symptoms. Immunologic/Allergic: Reports: no symptoms. Physical Exam Physical Exam General Appearance: alert, awake, anxious, moderate distress Head: atraumatic, normal appearance Eyes: Bilateral: normal appearance, PERRL, EOMI. Ears, Nose, Throat: normal pharynx, normal ENT inspection, hearing grossly normal Neck: normal inspection, supple Respiratory: decreased breath sounds, accessory muscle use Cardiovascular: irregularly irregular Peripheral Pulses: 4+ radial (R), 4+ radial (L) Gastrointestinal: soft, non-tender Back: decreased range of motion Extremities: pedal edema Neurologic/Psych: no motor/sensory deficits, awake, alert, oriented x 3 Skin: intact, normal color, diaphoresis Core Measures ACS in differential dx? Yes CVA/TIA Diagnosis: No Sepsis Present: No Sepsis Focused Exam Completed? No Progress Differential Diagnoses I considered the following diagnoses in my evaluation of the patient: [ Congestive heart failure, acute kidney injury, acute coronary syndrome, pulmonary embolism, pneumonia] Plan of Care: Orders Procedure Date/time Status XRY-PORTABLE CHEST XRAY 08/23 1142 Active TSH REFLEX 08/23 1142 Active TROPONIN LEVEL 08/23 1142 Active PHOSPHORUS 08/23 1142 Active MAGNESIUM 08/23 1142 Active CBC WITHOUT DIFFERENTIAL 08/23 1142 Complete BASIC METABOLIC PANEL 08/23 1142 Active EKG 08/23 1142 Active Laboratory Tests 08/23/17 1225: Sodium Pending, Potassium Pending, Chloride Pending, Carbon Dioxide Pending, Anion Gap Pending, BUN Pending, Creatinine Pending, BUN/Creatinine Ratio Pending , Glucose Pending, Calcium Pending, Phosphorus Pending, Magnesium Pending, Troponin I Pending, TSH &T3 &Free T4 Intrp Pending, CBC w Diff NO MAN DIFF REQ, RBC 3.90 L, MCV 95.3 H, MCH 31.7 H, MCHC 33.3, RDW 18.4 H, MPV 7.3 L, Gran % 80.8 H, Lymphocytes % 10.8 L, Monocytes % 7.2, Eosinophils % 0.6, Basophils % 0.6, Absolute Granulocytes 10.5 H, Absolute Lymphocytes 1.4, Absolute Monocytes 0.9 H, Absolute Eosinophils 0.1, Absolute Basophils 0.1 Initial ED EKG: nonspecific ST T wave chg, atrial fibrillation Prior EKG: unchanged Departure Departure Disposition: STILL A PATIENT Condition: Stable Clinical Impression Primary Impression: Dyspnea Referrals: Saadia TINEO,Tanmay Quintanilla (PCP/Family) Departure Forms: Customer Survey General Discharge Information Comments 08/23/17 12:41 PM Portable chest x-ray was ordered. Albuterol nebulizer. Oxygen. He will be signed out to MACHO Joya at 1 PM. Critical Care Note Critical Care Note Critical Care Time: 30-74 min
[2017-08-23] MEDS ORDERED: STOOL SOFTENER100 M3 PO (12:29)
[2017-08-23 12:38] LABS: ABSOLUTE BASOPHIL COUNT 0.1 /CUMM (0.0-0.2); ABSOLUTE EOSINOPHIL COUNT 0.1 /CUMM (0.0-0.7); ABSOLUTE GRANULOCYTE CT 10.5 /CUMM (1.4-6.5); ABSOLUTE LYMPH COUNT 1.4 /CUMM (1.2-3.4); ABSOLUTE MONOCYTE COUNT 0.9 /CUMM (0.10-0.60); BASOPHIL % 0.6 % (0.0-2.0); EOSINOPHIL % 0.6 % (0-5); GRANULOCYTE % 80.8 % (42.2-75.2); HEMATOCRIT 37.2 % (42-52); MEAN CORPUSCULAR HGB 31.7 PG (27.0-31.0); MEAN CORPUSCULAR HGB CONC 33.3 G/DL (33.0-37.0); MEAN CORPUSCULAR VOLUME 95.3 FL (80.0-94.0); MEAN PLATELET VOLUME 7.3 FL (7.4-10.4); PLATELET COUNT 186 /CUMM (130-400); RBC DISTRIBUTION WIDTH 18.4 % (11.5-14.5)
--- NOTE | 2017-08-23 13:24 | RADIOLOGY REPORT ---
EXAMINATION: XR PORTABLE CHEST CLINICAL INFORMATION: Shortness of breath. Pneumonia. COMPARISON: Multiple chest x-rays most recent prior dated 08/12/2017 TECHNIQUE: Portable frontal view of the chest was obtained. FINDINGS: Lung bases are not entirely included in examination. Cardiomegaly. Central pulmonary vascular congestion. Mild asymmetric interstitial edema right lung greater than left. Plate atelectasis right midlung. Patchy infiltrate or atelectasis right medial base. IMPRESSION: Vascular congestion and mild edema, right greater than left. Patchy infiltrate or atelectasis right medial base.
--- NOTE | 2017-08-23 14:47 | CT SCAN REPORT ---
EXAMINATION: CT CHEST WITHOUT CONTRAST CLINICAL INFORMATION: Cough, shortness of breath and elevated WBC level. COMPARISON: Chest CT from 01/15/2015, 06/02/2016 and 07/02/2017. CXR from 08/12/2017 and 08/23/2017. TECHNIQUE: Multidetector volumetric CT imaging of the chest was done. Axial MIP volume rendering provided. Sagittal and coronal reformatted images were obtained. DLP: 653 mGy-cm FINDINGS: LUNGS AND PLEURA: Mild centrilobular emphysema. Bronchial mchugh are chronically thickened in both lungs. The previously noted groundglass opacities and tree-in-bud nodules that predominantly involved the right middle and right lower lobes and 07/02/2017 have resolved. However, there are some new, subtle areas of peribronchial ground glass/reticular opacity in the left lower lobe, likely due to inflammation or infection of the small airways. The groundglass opacities in the dependent aspect of the right upper and right lower lobe likely represent atelectasis rather than pneumonitis. Small right pleural effusion is associated with compressive atelectasis in the posterior aspect of the right upper lobe and right lower lobe. Trace left pleural effusion is present; it produces mild compressive atelectasis in the left lower lobe. Again noted are old, clustered noncalcified nodules in the left upper lobe, unchanged compared to 01/15/2015. MEDIASTINUM: The heart size is normal. Scattered atherosclerotic calcifications of coronary arteries and thoracic aorta without aortic aneurysm. No pericardial effusion. The esophagus has normal wall thickness. Thyroid gland is slightly heterogeneous and probably has a few small nodules. No acute findings within the thyroid gland. No mediastinal mass. LYMPHATICS: No pathologic sized axillary, hilar or mediastinal lymph nodes. UPPER ABDOMEN: No acute findings within the visualized solid or hollow viscera of the upper abdomen. There is an old punctate calcification within the right adrenal gland. SKELETAL AND CHEST WALL: No aggressive osseous lesions. Multilevel degenerative arthropathy of the spine. Symmetric appearance of gynecomastia. IMPRESSION: 1. Chronic, mild centrilobular emphysema. 2. Chronic thickening of bronchial mchugh, suggestive of bronchitis. Overall, interval improvement in small airway and pulmonary disease compared to 07/02/2017. The previously noted groundglass opacities and tree-in-bud nodules have resolved. However, there is an area of subtle, new peribronchial groundglass opacity in the left lower lobe, likely secondary to infection or inflammation of the small airways in this region. 3. Small bilateral pleural effusions (right larger than left) associated with compressive atelectasis in the dependent aspect of each lung. 4. The clustered, noncalcified nodules in the left upper lobe remain stable compared to 01/15/2015.
--- NOTE | 2017-08-23 15:32 | History & Physical ---
Sohan Henriquez 08/23/17 1531: General Information and HPI MD Statement: I have seen and personally examined JANETTE PAEZ and documented this H&P. The patient is a 72 year old M who presented with a patient stated chief complaint of [hypotension]. Source of Information: patient, family, old records Exam Limitations: clinical condition History of Present Illness: 72 year old gentleman former smoker, from home with PMHx of COPD on nightly 2.5 L O2, HTN, Insulin treated DM, CHF, Gout, RA MTX and chronic prednisone, paroxysmal Afib/aflutter on Eliquis, obstructive sleep apnea noncompliant with CPAP, history of multiple admissions to [facility] and was recently discharged on August 16. Apparently when he was discharged per sister he was at his baseline which was walking with a walker and not visibly out of breath. However the last few days the visiting nurse had documented low blood pressure reading 87/49, 94/50 with heart rates in low 60s. Family also noted that he looked short of breath. He is on a heart healthy diet which is delivered by [employer], and his pills are given to him by his . On interview he denied any fever, chills, cough with expectoration, chest pain, palpitations, dizziness or blurry vision, abdominal pain, nausea or vomiting, diarrhea or constipation. Denied that he was short of breath however he was visibly using his accessory intercostal muscles and was pursed breathing. Allergies/Medications Allergies: Coded Allergies: Sulfa (Sulfonamide Antibiotics) (Intermediate, RASH/HIVES 06/06/17) Home Med list Albuterol Sulfate 2.5 MG/3 ML (0.083 %) VIAL.NEB 1 Vial INH/TAPAN 5 TIMES A DAY COPD (Reported) Alendronate Sodium 70 MG TABLET 1 TAB PO QTHURS BONES (Reported) in the morning, at least 30 minutes before the first food, beverage, or medication of the day Allopurinol 300 MG TABLET 1 TAB PO DAILY GOUT (Reported) Apixaban (Eliquis) 5 MG TABLET 1 TAB PO BID Atrial Fibrilliation Budesonide/Formoterol Fumarate (Symbicort 160-4.5 Mcg Inhaler) 160 MCG-4.5 MCG/ ACTUATION HFA.AER.AD 2 PUF INH BID COPD (Reported) Cyanocobalamin (Vitamin B-12) (Cyanocobalamin Injection) 1,000 MCG/ML VIAL 1 ML IM Q30D SUPPLEMENT (Reported) Diltiazem HCl (Cardizem Cd) 240 MG CAP.ER.24H 240 MG PO DAILY heart . Docusate Sodium (Stool Softener) 100 MG CAPSULE 1 CAP PO BID STOOL SOFTENER ( Reported) Duloxetine HCl (Cymbalta) 60 MG CAPSULE.DR 1 CAP PO DAILY MENTAL HEALTH ( Reported) Folic Acid 1 MG TABLET 1 TAB PO BID SUPPLEMENT (Reported) Furosemide (Lasix) 20 MG TABLET 1 TAB PO DAILY Fluid Retention Insulin Glargine,Hum.rec.anlog (Lantus Solostar) 100 UNIT/ML (3 ML) INSULN.PEN 30 UNIT SC BID DIABETES (Reported) Lovastatin 40 MG TABLET 1 TAB PO QPM CHOLESTEROL (Reported) with food Methotrexate 2.5 MG TABLET 6 TAB PO QTHURS RA (Reported) Metoprolol Tartrate (Lopressor) 100 MG TABLET 1 TAB PO BID heart (Reported) Omeprazole 20 MG CAPSULE.DR 1 CAP PO BID GI (Reported) Oxycodone HCl/Acetaminophen (Oxycodone-Acetaminophen 10-325) 10 MG-325 MG TABLET 1 TAB PO 4XDP PRN PAIN (Reported) Prednisone 20 MG TABLET 1 TAB PO DAILY copd (Reported) Tamsulosin HCl 0.4 MG CAP.ER.24H 1 CAP PO QPM BPH (Reported) Compliance With Home Meds: GOOD Past History Travel History [place]ed to [place] past 21 day No Medical History Neurological: NONE EENT: NONE Cardiovascular: AFIB, CHF, hypertension Respiratory: COPD, obstructive sleep apnea, with ongoing tobacco use disorder 02 DEPENDANT Gastrointestinal: NONE Hepatic: NONE Renal: benign prost hyperplasia Musculoskeletal: rheumatoid arthritis Psychiatric: NONE Endocrine: INSULIN DEPENDENT DIABETIC TYPE II Blood Disorders: NONE Cancer(s): BASAL CELL CA LUNCH COOK/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 Refer elsewhere in this and other documents for additional details. According to the patient's report he was asymptomatic and functionally unrestricted by his back prior to this injury. He did have functional limitation and restriction because of his other medical conditions. Refer to other inpatient and outpatient medical records for details regarding pre-injury functional status and deficits. History of MRSA: No History of VRE: Yes History of CDIFF: No Surgical History Surgical History: N (jjjg) Past Family/Social History Family History Relations & Conditions if any MOTHER FHx: cancer Psychosocial History Who Do You Live With? spouse Services at Home: Nursing, Oxygen (2.5 liters) Functional Ability Ambulation: independent, Ambulatory distance was limited by pulmonary condition and not by any spinal symptoms prior to this injury. Pre-injury functional ability is detailed in "Other Medical Hx" section. Review of Systems Review of Systems Constitutional: Reports: see HPI. Exam & Diagnostic Data Last 24 Hrs of Vital Signs/I&O Vital Signs Date Time Temp Pulse Resp B/P B/P Pulse O2 O2 Flow FiO2 Mean Ox Delivery Rate 08/23 1643 98.9 68 21 110/68 92 Nasal Cannula 08/23 1444 78 23 127/68 91 Nasal 3.0L Cannula 08/23 1323 93 Nasal 3.5L Cannula 08/23 1205 24 110/77 88 Nasal 3.0L Cannula Intake & Output 08/23 1600 08/23 0800 08/23 0000 Intake Total Output Total 300 Balance -300 Output, Urine 300 Physical Exam General Appearance Alert, Oriented X3, Mild Distress, morbidly obese HEENT Atraumatic, dry mucous membranes Cardiovascular irreg irreg, distant heart sounds Lungs quiet breath sounds Abdomen Soft, No Tenderness, distended Extremities b/l pitting edema to below clarke Last 24 Hrs of Labs/Kiel: Laboratory Tests 08/23/17 1225: Anion Gap 8, Estimated GFR > 60, BUN/Creatinine Ratio 21.4, Glucose 179 H, Lactic Acid 1.1, Calcium 8.6, Phosphorus 3.4, Magnesium 1.7, Troponin I < 0.01, Wwl-C-Juksisnwhvb Pept 1270 H, TSH &T3 &Free T4 Intrp 2.290, CBC w Diff NO MAN DIFF REQ, RBC 3.90 L, MCV 95.3 H, MCH 31.7 H, MCHC 33.3, RDW 18.4 H, MPV 7.3 L, Gran % 80.8 H, Lymphocytes % 10.8 L, Monocytes % 7.2, Eosinophils % 0.6, Basophils % 0.6, Absolute Granulocytes 10.5 H, Absolute Lymphocytes 1.4, Absolute Monocytes 0.9 H, Absolute Eosinophils 0.1, Absolute Basophils 0.1 08/23/17 1142: D-Dimer High Sensitivty < 200 Microbiology 08/23 1535 BLOOD: Blood Culture - RECD 08/23 1530 BLOOD: Blood Culture - RECD 08/23 1245 URINE ROUT: Urine Culture - ORD Diagnostic Data EKG Results afib/aflutter HR 93 Qtc 453 CXR Results IMPRESSION: Vascular congestion and mild edema, right greater than left. Patchy infiltrate or atelectasis right medial base. Other Results SERVICE DATE: 08/23/17-1328 EXAM TYPE: CAT - CT CHEST WO IV CONTRAST IMPRESSION: 1. Chronic, mild centrilobular emphysema. 2. Chronic thickening of bronchial mchugh, suggestive of bronchitis. Overall, interval improvement in small airway and pulmonary disease compared to 07/02/2017. The previously noted groundglass opacities and tree-in-bud nodules have resolved. However, there is an area of subtle, new peribronchial groundglass opacity in the left lower lobe, likely secondary to infection or inflammation of the small airways in this region. 3. Small bilateral pleural effusions (right larger than left) associated with compressive atelectasis in the dependent aspect of each lung. 4. The clustered, noncalcified nodules in the left upper lobe remain stable compared to 01/15/2015. Assessment/Plan Assessment: 72 year old gentleman former smoker, from home with PMHx of COPD on nightly 2.5 L O2, HTN, Insulin treated DM, CHF, Gout, RA MTX and chronic prednisone, paroxysmal Afib/aflutter on Eliquis, history of left atrial appendage, obstructive sleep apnea noncompliant with CPAP brought in by sister for shortness of breath and low blood pressure readings at home. Labs significant for mild leukocytosis with left shift and no bandemia, elevated proBNP 1270 Chest x-ray significant forVascular congestion and mild edema, right greater than left. Patchy infiltrate or atelectasis right medial base. CT chest : previously noted groundglass opacities and tree-in-bud nodules have resolved. However, there is an area of subtle, new peribronchial groundglass opacity in the left lower lobe, likely secondary to infection orinflammation of the small airways in this region. Last echo done 07/05/17 EF 55% with RV pressure of 45 ED course: noted to have an O2 sat of 88% on arrival. Beatty was placed he was given IV Solu-Medrol 125 mg once, 1 dose of IV 20 mg Lasix, IV ceftriaxone and IV azithromycin. Assessment and plan: Acute hypoxemic respiratory failure secondary to acute on chronic CHF. Problem list: HFpEf Atrial fibrillation/A flutter COPD History of BOB DM, HTN, BPH, rheumatoid arthritis gout GERD Plan: Place in observation on general medicine, vitals per protocol Strict I's and O's, daily weights, reassess need for Beatty on daily basis IV Lasix 20 daily can reassess the need for further diuresis later in the day pending blood pressure, Leukocytosis likely secondary to steroid use, currently afebrile with no symptoms indicating infection will hold off antibiotics for now Continue CPAP overnight TRC /nebs supplemental oxygen/Symbicort Serial troponins and ECG to rule out ACS Accu-Cheks, insulin sliding scale, will continue his long-acting insulin Continue his home meds of prednisone, Cardizem, metoprolol, tamsulosin allopurinol Continue Eliquis DVT prophylaxis with Eliquis Heart healthy diet DNR/DNI As Ranked By This Provider Problem List: 1. Diabetes 2. Rheumatoid arthritis 3. Hypertension 4. CHF exacerbation Core Measures/Misc (10/28) Acute Coronary Syndrome ACS Diagnosis: No Congestive Heart Failure Congestive Heart Failure Diagnosis Yes Last Known EF % 55 No DARIO/ARB d/t Medical Contraindication Cerebrovascular Accident CVA/TIA Diagnosis: No VTE (View Protocol) VTE Risk Factors Age>40 No Mechanical VTE Prophylaxis d/t N/A MechProphylax Ordered No VTE Pharm Prophylaxis d/t NA PharmProphylax ordered Sepsis (View protocol) Sepsis Present: No If YES complete Sepsis Event Note If YES complete Sepsis Event Note Pipo Amor 08/23/17 1646: Core Measures/Misc (10/28) Sepsis (View protocol) If YES complete Sepsis Event Note If YES complete Sepsis Event Note Attending MD Review Statement Attending Statement Attending MD Statement: examined this patient, discuss w/resident/PA/DIALYSIS CLINICAL MANAGER, agreed w/resident/PA/DIALYSIS CLINICAL MANAGER, discussed with family, reviewed EMR data (avail), discussed with nursing, discussed with case mgmt, reviewed images, amended to note Attending Assessment/Plan: 72M PMH HTN, T2DM, atrial fibrillation on Eliquis, COPD with chronic hypoxemic respiratory failure on 2L NC, and HFpEF presenting with hypotension at home and Spo2 88 on arrival to ER. Patient denying chest pain, palpitations, lightheadedness. Reports bilateral LE edema with cough. Vitals afebrile. Labs noted. CXR read as pulmonary vascular congestion, CT chest as chronic changes with inflammatroy bronchitis. EKG atrial fibrillation without ST/T changes. Plan: Tele obs for acute on chronic CHF exacerbation diastolic heart failure with mild to moderate pulmonary hypertension, serial cardiac enzymes, cardiology consult Dr López, iv lasix 20 mg, continue Eliquis, rate control agents. Monitor input/output and daily weights. MOnitor off antibitoics for now, if spikes fever consider abx. gi/dvt prophylaxis
[2017-08-23 17:48] VITALS: BP 132/76
[2017-08-23 22:04] VITALS: BP 124/68
[2017-08-24 07:14] VITALS: BP 118/76
--- NOTE | 2017-08-24 09:04 | PN- Housestaff ---
Maddi Pringle 08/24/17 0904: Subjective Follow-up For: chf exacerbation Tele-Events Since Last Visit: A flutter heart rate 80-119. Bundle branch block. heart rate 101 Subjective: Patient reports that he is feeling very much better and that he is back to his baseline. He wants to be discharged as he wants to visit a friend in [place]. Review of Systems Constitutional: Reports: see HPI. Objective Last 24 Hrs of Vital Signs/I&O Vital Signs Date Time Temp Pulse Resp B/P B/P Pulse O2 O2 Flow FiO2 Mean Ox Delivery Rate 08/24 1800 95 Nasal 3.0L Cannula 08/24 1034 118/76 08/24 1030 94 Nasal 4.0L Cannula 08/24 0714 97.9 118 20 118/76 96 Nasal 4.0L Cannula 08/24 0119 92 Nasal 4.0L Cannula 08/24 0000 93 Nasal 4.0L Cannula Intake & Output 08/24 1600 08/24 0800 08/24 0000 Intake Total 240 0 100 Output Total 300 150 Balance -60 -150 100 Intake, Oral 240 0 100 Number 1 1 Bowel Movements Output, Urine 300 150 Patient 252 lb 250 lb Weight Weight Bed scale Bed scale Measurement Method Physical Exam General Appearance: Alert, Oriented X3, Cooperative, No Acute Distress Skin Temp/Moisture Exam: Cool/Dry HEENT: Atraumatic Neck: Supple Cardiovascular: Regular Rate, Normal S1, Normal S2, No Murmurs Lungs: Clear to Auscultation, Normal Air Movement Abdomen: Normal Bowel Sounds, Soft, No Tenderness, No Hepatospenomegaly Neurological: Normal Speech, Strength at 5/5 X4 Ext, Normal Tone Extremities: No Clubbing, No Cyanosis, No Edema Assessment/Plan Assessment: 72 year old gentleman former smoker, from home with PMHx of COPD on nightly 2.5 L O2, HTN, Insulin treated DM, CHF, Gout, RA MTX and chronic prednisone, paroxysmal Afib/aflutter on Eliquis, obstructive sleep apnea noncompliant with CPAP, history of multiple admissions to [facility] and was recently discharged on August 16. Apparently when he was discharged per sister he was at his baseline which was walking with a walker and not visibly out of breath. However the last few days the visiting nurse had documented low blood pressure reading 87/49, 94/50 with heart rates in low 60s. Family also noted that he looked short of breath. His heart rate was between 118-123. Plan: * Patient is at his baseline and plan is to discharge today on previous home meds. * Problem List: 1. CHF exacerbation 2. Rheumatoid arthritis 3. Hypertension 4. Diabetes Pain Ratin Pain Location: None Pain Goal: Remain pain free Pain Plan: Follow pain pathway Tomorrow's Labs & Rationales: Taylor Hidalgo 08/24/17 1651: Attending MD Review Statement Attending Statement Attending MD Statement: examined this patient, discuss w/resident/PA/OPEN SOURCE DEVELOPER, agreed w/resident/PA/OPEN SOURCE DEVELOPER, reviewed EMR data (avail), discussed with nursing, discussed with case mgmt Attending Assessment/Plan: Pt being dced home in stable condition. was placed in observation for acute diastolic chf exacerbation. given iv lasix. cardiology saw the pt and are ok with him being discharged. no change in home meds. d/w pt the careplan.
[2017-08-24 10:34] VITALS: BP 118/76
[2017-08-24 12:23] LABS: ABSOLUTE BASOPHIL COUNT 0 /CUMM (0.0-0.2); ABSOLUTE EOSINOPHIL COUNT 0 /CUMM (0.0-0.7); ABSOLUTE GRANULOCYTE CT 6.4 /CUMM (1.4-6.5); ABSOLUTE LYMPH COUNT 0.3 /CUMM (1.2-3.4); ABSOLUTE MONOCYTE COUNT 0.3 /CUMM (0.10-0.60); BASOPHIL % 0 % (0.0-2.0); EOSINOPHIL % 0 % (0-5); GRANULOCYTE % 91.9 % (42.2-75.2); HEMATOCRIT 34.9 % (42-52); MEAN CORPUSCULAR HGB 31.6 PG (27.0-31.0); MEAN CORPUSCULAR HGB CONC 33.2 G/DL (33.0-37.0); MEAN CORPUSCULAR VOLUME 95.2 FL (80.0-94.0); MEAN PLATELET VOLUME 7.8 FL (7.4-10.4); PLATELET COUNT 159 /CUMM (130-400); RBC DISTRIBUTION WIDTH 18.2 % (11.5-14.5); RED BLOOD CELL CT 3.67 /CUMM (4.70-6.10); WHITE BLOOD CELL COUNT 6.9 /CUMM (4.8-10.8)
--- NOTE | 2017-08-24 12:48 | Patient Discharge Instructions ---
Discharge Instructions General Discharge Information You were seen/treated for: Congestive heart failure. Watch for these problems: If you have any of these: Chest pain, worsening shortness of breath, please visit to the nearest emergency room. Diet Recommended Diet: Diabetic, Heart Healthy Activity Activity Self Limited: Yes Acute Coronary Syndrome Inclusion Criteria At DC or during hospital stay patient has or had the following: ACS DIAGNOSIS No Discharge Core Measures Meds if any: Prescribed or Continued at Discharge Meds if any: NOT Prescribed or Continued at Discharge Congestive Heart Failure Inclusion Criteria At DC or during hospital stay patient has or had the following: CHF DIAGNOSIS Yes Discharge Core Measures Meds if any: Prescribed or Continued at Discharge Meds if any: NOT Prescribed or Continued at Discharge Cerebrovascular accident Inclusion Criteria At DC or during hospital stay patient has or had the following: CVA/TIA Diagnosis No Discharge Core Measures Meds if any: Prescribed or Continued at Discharge Meds if any: NOT Prescribed or Continued at Discharge Venous thromboembolism Inclusion Criteria VTE Diagnosis No VTE Type NONE VTE Confirmed by (Test) NONE Discharge Core Measures - Per Current guidelines, there needs to be overlap - treatment for the first 5 days of Warfarin therapy. - If discharged on Warfarin prior to 5 days of - overlap therapy, the patient will need to be - assessed for post discharge needs including - *Post discharge parental anticoagulation - *Warfarin and/or parental anticoagulation education - *Follow up date to check INR post discharge At least 5 days overlap therapy as Inpatient No Meds if any: Prescribed or Continued at Discharge Note: Overlap Therapy is Warfarin and Anticoagulant Meds if any: NOT Prescribed or Continued at Discharge
--- NOTE | 2017-08-24 14:40 | Cons- Cardiology ---
General Information and HPI Consulting Request Date of Consult: 08/24/17 Requested By: Pipo Amor MD Reason for Consult: Reported hypotension; edema; atrial flutter Source of Information: patient, old records Exam Limitations: no limitations History of Present Illness: The patient is a 72-year-old male who is well-known to me. The patient is admitted to the hospital via the emergency room after having been noted by a visiting nurse to have a low blood pressure of 80/50. Patient's past medical history is remarkable for COPD on home oxygen, hypertension, diabetes, prior diastolic heart failure, rheumatoid arthritis on methotrexate, persistent atrial fibrillation/atrial flutter on Eliquis, and sleep apnea. The patient remains asymptomatic from a cardiac standpoint but was noted to have a low blood pressure at home. On arrival to the emergency room, however, the patient's blood pressure was 120/70. The patient was also reported by the home visiting nurse to have a heart rate in the 60s. Today, the patient is feeling well. He is anxious to be discharged. He has no symptoms at the present time. Allergies/Medications Allergies: Coded Allergies: Sulfa (Sulfonamide Antibiotics) (Intermediate, RASH/HIVES 06/06/17) Home Med List: Albuterol Sulfate 2.5 MG/3 ML (0.083 %) VIAL.NEB 1 Vial INH/TAPAN 5 TIMES A DAY COPD (Reported) Alendronate Sodium 70 MG TABLET 1 TAB PO QTHURS BONES (Reported) in the morning, at least 30 minutes before the first food, beverage, or medication of the day Allopurinol 300 MG TABLET 1 TAB PO DAILY GOUT (Reported) Apixaban (Eliquis) 5 MG TABLET 1 TAB PO BID Atrial Fibrilliation Budesonide/Formoterol Fumarate (Symbicort 160-4.5 Mcg Inhaler) 160 MCG-4.5 MCG/ ACTUATION HFA.AER.AD 2 PUF INH BID COPD (Reported) Cyanocobalamin (Vitamin B-12) (Cyanocobalamin Injection) 1,000 MCG/ML VIAL 1 ML IM Q30D SUPPLEMENT (Reported) Diltiazem HCl (Cardizem Cd) 240 MG CAP.ER.24H 240 MG PO DAILY heart . Docusate Sodium (Stool Softener) 100 MG CAPSULE 1 CAP PO BID STOOL SOFTENER ( Reported) Duloxetine HCl (Cymbalta) 60 MG CAPSULE.DR 1 CAP PO DAILY MENTAL HEALTH ( Reported) Folic Acid 1 MG TABLET 1 TAB PO BID SUPPLEMENT (Reported) Furosemide (Lasix) 20 MG TABLET 1 TAB PO DAILY Fluid Retention Insulin Glargine,Hum.rec.anlog (Lantus Solostar) 100 UNIT/ML (3 ML) INSULN.PEN 30 UNIT SC BID DIABETES (Reported) Lovastatin 40 MG TABLET 1 TAB PO QPM CHOLESTEROL (Reported) with food Methotrexate 2.5 MG TABLET 6 TAB PO QTHURS RA (Reported) Metoprolol Tartrate (Lopressor) 100 MG TABLET 1 TAB PO BID heart (Reported) Omeprazole 20 MG CAPSULE. 1 CAP PO BID GI (Reported) Oxycodone HCl/Acetaminophen (Oxycodone-Acetaminophen 10-325) 10 MG-325 MG TABLET 1 TAB PO 4XDP PRN PAIN (Reported) Prednisone 20 MG TABLET 1 TAB PO DAILY copd (Reported) Tamsulosin HCl 0.4 MG CAP.ER.24H 1 CAP PO QPM BPH (Reported) Current Medications: Current Medications Sig/Lakisha Start time Last Medication Dose Route Stop Time Status Admin Albuterol Sulfate 3 ML EVERY 4 HRS/AWAKE 08/23 2000 AC 08/24 INH 1025 Alendronate Sodium 70 MG Th@0700 08/29 0700 AC PO Allopurinol 300 MG DAILY 08/24 09 AC 08/24 PO 1033 Apixaban 5 MG BID 08/23 2100 AC 08/24 PO 1034 Atorvastatin Calcium 10 MG 1700 08/24 1700 AC PO Atorvastatin Calcium 10 MG ONCE ONE 08/23 2045 DC 08/23 PO 08/23 2046 2205 Azithromycin 500 MG ONCE ONE 08/23 1500 DC 08/23 Sodium Chloride 250 ML IV 08/23 1559 1546 Budesonide/ 2 PUF BID 08/23 2100 AC 08/24 Formoterol Fumarate INH 1046 Ceftriaxone Sodium 0 .STK-MED ONE 08/23 1536 DC .ROUTE Ceftriaxone Sodium 1,000 MG ONCE ONE 08/23 1500 DC 08/23 IV 08/23 1501 1546 Diltiazem HCl 240 MG DAILY 08/24 0900 AC 08/24 PO 1034 Docusate Sodium 100 MG BID 08/23 2100 AC 08/24 PO 1034 Duloxetine HCl 60 MG DAILY 08/24 0900 AC 08/24 PO 1034 Folic Acid 1 MG BID 08/23 2100 AC 08/24 PO 1034 Furosemide 20 MG DAILY 08/24 0900 AC 08/24 IV 1035 Insulin Aspart 0 TIDAC 08/24 0800 AC 08/24 SC 1231 Insulin Detemir 30 UNITS BID 08/23 2099 AC 08/24 SC 1042 Methotrexate 15 MG QTHURS 08/29 0900 AC PO Metoprolol Tartrate 100 MG BID 08/23 2100 AC 08/24 PO 1034 Omeprazole 20 MG BID 08/23 2099 AC 08/24 PO 1034 Oxycodone/ 1 TAB Q6P PRN 08/23 1730 AC Acetaminophen PO Prednisone 20 MG DAILY 08/24 0900 AC 08/24 PO 1034 Tamsulosin HCl 0.4 MG QPM 08/23 2099 AC 08/23 PO 9 Past History Travel History Traveled to [place] past 21 day No Medical History Neurological: NONE EENT: NONE Cardiovascular: AFIB, CHF, hypertension Respiratory: COPD, obstructive sleep apnea, with ongoing tobacco use disorder 02 DEPENDANT Gastrointestinal: NONE Hepatic: NONE Renal: benign prost hyperplasia Musculoskeletal: rheumatoid arthritis Psychiatric: NONE Endocrine: INSULIN DEPENDENT DIABETIC TYPE II Blood Disorders: NONE Cancer(s): BASAL CELL 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 Refer elsewhere in this and other documents for additional details. According to the patient's report he was asymptomatic and functionally unrestricted by his back prior to this injury. He did have functional limitation and restriction because of his other medical conditions. Refer to other inpatient and outpatient medical records for details regarding pre-injury functional status and deficits. Surgical History Surgical History: none (jjjg) Family History Relations & Conditions If Any: MOTHER FHx: cancer Psychosocial History Where Do You Live? Home Who Do You Live With? spouse Services at Home: Nursing, Oxygen (2.5 liters) Smoking Status: Current Everyday Smoker Functional Ability Ambulation: independent, Ambulatory distance was limited by pulmonary condition and not by any spinal symptoms prior to this injury. Pre-injury functional ability is detailed in "Other Medical Hx" section. Exam & Diagnostic Data Vital Signs and I&O Vital Signs Date Time Temp Pulse Resp B/P B/P Pulse O2 O2 Flow FiO2 Mean Ox Delivery Rate 08/24 1034 118/76 08/24 1030 94 Nasal 4.0L Cannula 08/24 0714 97.9 118 20 118/76 96 Nasal 4.0L Cannula 08/24 0119 92 Nasal 4.0L Cannula 08/24 0000 93 Nasal 4.0L Cannula 08/23 2204 97.7 123 26 124/68 90 08/23 2039 123 124/68 08/23 2038 123 124/68 08/23 2014 Nasal 4.0L Cannula 08/23 Nasal 4.0L Cannula 08/23 1953 92 Nasal 4.0L Cannula 08/23 1748 98.6 73 18 132/76 92 08/23 1643 98.9 68 21 110/68 92 Nasal Cannula 08/23 1444 78 23 127/68 91 Nasal 3.0L Cannula Intake & Output 08/24 1600 08/24 0800 08/24 0000 08/23 1600 08/23 0800 08/23 0000 Intake Total 0 100 Output Total 300 150 300 Balance -300 -150 100 -300 Intake, Oral 0 100 Number 1 1 Bowel Movements Output, Urine 300 150 300 Patient 252 lb 250 lb Weight Weight Bed scale Bed scale Measurement Method Physical Exam: General Appearance Alert, Oriented X3, Mild Distress, morbidly obese HEENT Atraumatic, dry mucous membranes Cardiovascular irreg irreg, distant heart sounds; 1/6 to 2/6 systolic murmur Lungs essentially clear bilaterally. Abdomen Soft, No Tenderness, distended Extremities b/l pitting edema to below clarke hemicolon 1-2+ with stasis change Labs/Kiel Results: Laboratory Tests 08/24 08/23 08/23 1150 2340 1755 Chemistry Troponin I (<0.11 ng/ml) < 0.01 < 0.01 Hematology CBC w Diff MAN DIFF ORDERED WBC (4.8 - 10.8 /CUMM) 6.9 RBC (4.70 - 6.10 /CUMM) 3.67 L Hgb (14.0 - 18.0 G/DL) 11.6 L Hct (42 - 52 %) 34.9 L MCV (80.0 - 94.0 FL) 95.2 H MCH (27.0 - 31.0 PG) 31.6 H MCHC (33.0 - 37.0 G/DL) 33.2 RDW (11.5 - 14.5 %) 18.2 H Plt Count (130 - 400 /CUMM) 159 MPV (7.4 - 10.4 FL) 7.8 Gran % (42.2 - 75.2 %) 91.9 H Lymphocytes % (20.5 - 51.1 %) 4.4 L Monocytes % (1.7 - 9.3 %) 3.7 Eosinophils % (0 - 5 %) 0 Basophils % (0.0 - 2.0 %) 0 Absolute Granulocytes (1.4 - 6.5 /CUMM) 6.4 Absolute Lymphocytes (1.2 - 3.4 /CUMM) 0.3 L Absolute Monocytes (0.10 - 0.60 /CUMM) 0.3 Absolute Eosinophils (0.0 - 0.7 /CUMM) 0 Absolute Basophils (0.0 - 0.2 /CUMM) 0 Platelet Estimate (ADEQUATE) VERIFIED BY SMEAR Polychromasia 1+ Anisocytosis 1+ 08/23 08/23 1225 1142 Chemistry Sodium (137 - 145 mmol/L) 139 Potassium (3.5 - 5.1 mmol/L) 4.4 Chloride (98 - 107 mmol/L) 99 Carbon Dioxide (22 - 30 mmol/L) 32 H Anion Gap (5 - 16) 8 BUN (9 - 20 mg/dL) 15 Creatinine (0.7 - 1.2 mg/dL) 0.7 Estimated GFR (>60 ml/min) > 60 BUN/Creatinine Ratio (7 - 25 %) 21.4 Glucose (65 - 99 mg/dL) 179 H Lactic Acid (0.7 - 2.1 mmol/L) 1.1 Calcium (8.4 - 10.2 mg/dL) 8.6 Phosphorus (2.5 - 4.5 mg/dL) 3.4 Magnesium (1.6 - 2.3 mg/dL) 1.7 Troponin I (<0.11 ng/ml) < 0.01 [id number] Pept (<125 pg/mL) 1270 H TSH &T3 &Free T4 Intrp (0.27 - 4.20 uIU/mL) 2.290 Coagulation D-Dimer High Sensitivty (0 - 243 ng/ml) < 200 Hematology CBC w Diff NO MAN DIFF REQ WBC (4.8 - 10.8 /CUMM) 13.0 H RBC (4.70 - 6.10 /CUMM) 3.90 L Hgb (14.0 - 18.0 G/DL) 12.4 L Hct (42 - 52 %) 37.2 L MCV (80.0 - 94.0 FL) 95.3 H MCH (27.0 - 31.0 PG) 31.7 H MCHC (33.0 - 37.0 G/DL) 33.3 RDW (11.5 - 14.5 %) 18.4 H Plt Count (130 - 400 /CUMM) 186 MPV (7.4 - 10.4 FL) 7.3 L Gran % (42.2 - 75.2 %) 80.8 H Lymphocytes % (20.5 - 51.1 %) 10.8 L Monocytes % (1.7 - 9.3 %) 7.2 Eosinophils % (0 - 5 %) 0.6 Basophils % (0.0 - 2.0 %) 0.6 Absolute Granulocytes (1.4 - 6.5 /CUMM) 10.5 H Absolute Lymphocytes (1.2 - 3.4 /CUMM) 1.4 Absolute Monocytes (0.10 - 0.60 /CUMM) 0.9 H Absolute Eosinophils (0.0 - 0.7 /CUMM) 0.1 Absolute Basophils (0.0 - 0.2 /CUMM) 0.1 Diagnostic Data CXR Results FINDINGS: Lung bases are not entirely included in examination. Cardiomegaly. Central pulmonary vascular congestion. Mild asymmetric interstitial edema right lung greater than left. Plate atelectasis right midlung. Patchy infiltrate or atelectasis right medial base. IMPRESSION: Vascular congestion and mild edema, right greater than left. Patchy infiltrate or atelectasis right medial base. Other Results CTA chest: IMPRESSION: 1. Chronic, mild centrilobular emphysema. 2. Chronic thickening of bronchial mchugh, suggestive of bronchitis. Overall, interval improvement in small airway and pulmonary disease compared to 07/02/2017. The previously noted groundglass opacities and tree-in-bud nodules have resolved. However, there is an area of subtle, new peribronchial groundglass opacity in the left lower lobe, likely secondary to infection or inflammation of the small airways in this region. 3. Small bilateral pleural effusions (right larger than left) associated with compressive atelectasis in the dependent aspect of each lung. 4. The clustered, noncalcified nodules in the left upper lobe remain stable compared to 01/15/2015. Assessment/Plan Assessment/Plan Assessment: 1. Reported hypotension and bradycardia-since admission, the patient's blood pressures been stable and the patient's heart rate has remained between 70 and 115 which is normal for him since he has been in atrial flutter. His ISABELA/ cardioversion is scheduled for 2 weeks from now. 2. COPD 3. Diabetes 4. Lower extremity edema Recommendations: -At the moment, the patient appears to be stable to me from a cardiac standpoint. -Continue current cardiac medications. -Out of bed as tolerated with monitoring of blood pressure and heart rate on ambulation -If the patient remains stable, I believe the patient can be safely discharged home today with no other changes in his regimen. -The patient will follow up with me this coming week. -ISABELA/cardioversion scheduled in 2-3 weeks. Consult Acknowledgment - Thank you for your consult request.
== END 2017-08-24 16:14 | disposition home health service (06) ==
LOC: ERH 11:39 → 1NO 15:19 → ERHI 15:19 → ENRESERV 15:41 → ENTRNSPT 16:36 → 1NO 17:29 → CMPTRNSPT 17:36 → 1NO 19:32 → ENPENDDIS 08-24 13:02 → 1NO 08-24 16:14
PROVIDERS: Internal Medicine; Physician Assistant
DX: I11.0 Hypertensive heart disease with heart failure (principal); I50.33 Acute on chronic diastolic (congestive) heart failure; J96.01 Acute respiratory failure with hypoxia; J44.9 Chronic obstructive pulmonary disease, unspecified; E11.8 Type 2 diabetes mellitus with unspecified complications; Z79.4 Long term (current) use of insulin; I27.20 Pulmonary hypertension, unspecified; M10.9 Gout, unspecified; M06.9 Rheumatoid arthritis, unspecified; Z79.52 Long term (current) use of systemic steroids; I48.0 Paroxysmal atrial fibrillation; Z79.01 Long term (current) use of anticoagulants; I48.92 Unspecified atrial flutter; G47.33 Obstructive sleep apnea (adult) (pediatric); Z91.19 Patient's noncompliance with other medical treatment and regimen; Z99.81 Dependence on supplemental oxygen; F17.200 Nicotine dependence, unspecified, uncomplicated; C44.91 Basal cell carcinoma of skin, unspecified; D72.829 Elevated white blood cell count, unspecified; K21.9 Gastro-esophageal reflux disease without esophagitis; N40.0 Benign prostatic hyperplasia without lower urinary tract symptoms; I95.9 Hypotension, unspecified
CPT/HCPCS: 1263; 1328; 1530; 1748; 6020; 36415; 36592; 71045; 87040; 87071; 87086; 93005; 93010; 96374; 96375; 96376; G0378; J0696; J1940; J2930; J3490

== ENCOUNTER 2017-09-03 11:40 | Emergency (ER) | payer OTHER, MEDICARE ==
[~2017-09-03] VITALS: Ht 172.7 cm; Wt 111.1 kg
[~2017-09-03 11:40] MED LIST changes: +STOOL SOFTENER100 M3 PO
--- NOTE | 2017-09-03 11:45 | ED CARDIAC/CP/PALPITATIONS ---
History of Present Illness General Chief Complaint: General Adult Stated Complaint: BIBA ?AMS WITH ELEVATED BS Source: patient, family, old records Exam Limitations: no limitations Vital Signs & Intake/Output Vital Signs & Intake/Output Vital Signs Date Time Temp Pulse Resp B/P B/P Pulse O2 O2 Flow FiO2 Mean Ox Delivery Rate 09/03 1405 97.8 86 28 118/65 96 Nasal 3.0L Cannula 09/03 1219 97 Nasal 3.0L Cannula 09/03 1154 96 Nasal 3.0L Cannula 09/03 1151 97.8 80 28 126/76 83 Room Air Allergies Coded Allergies: Sulfa (Sulfonamide Antibiotics) (Intermediate, RASH/HIVES 06/06/17) Reconcile Medications Albuterol Sulfate 2.5 MG/3 ML (0.083 %) VIAL.NEB 1 Vial INH/TAPAN 5 TIMES A DAY COPD (Reported) Alendronate Sodium 70 MG TABLET 1 TAB PO QTHURS BONES (Reported) in the morning, at least 30 minutes before the first food, beverage, or medication of the day Allopurinol 300 MG TABLET 1 TAB PO DAILY GOUT (Reported) Apixaban (Eliquis) 5 MG TABLET 1 TAB PO BID Atrial Fibrilliation Budesonide/Formoterol Fumarate (Symbicort 160-4.5 Mcg Inhaler) 160 MCG-4.5 MCG/ ACTUATION HFA.AER.AD 2 PUF INH BID COPD (Reported) Cyanocobalamin (Vitamin B-12) (Cyanocobalamin Injection) 1,000 MCG/ML VIAL 1 ML IM Q30D SUPPLEMENT (Reported) Diltiazem HCl (Cardizem Cd) 240 MG CAP.ER.24H 240 MG PO DAILY heart . Docusate Sodium (Stool Softener) 100 MG CAPSULE 1 CAP PO BID STOOL SOFTENER ( Reported) Duloxetine HCl (Cymbalta) 60 MG CAPSULE.DR 1 CAP PO DAILY MENTAL HEALTH ( Reported) Folic Acid 1 MG TABLET 1 TAB PO BID SUPPLEMENT (Reported) Furosemide (Lasix) 20 MG TABLET 1 TAB PO DAILY Fluid Retention Insulin Glargine,Hum.rec.anlog (Lantus Solostar) 100 UNIT/ML (3 ML) INSULN.PEN 30 UNIT SC BID DIABETES (Reported) Lovastatin 40 MG TABLET 1 TAB PO QPM CHOLESTEROL (Reported) with food Methotrexate 2.5 MG TABLET 6 TAB PO QTHURS RA (Reported) Metoprolol Tartrate (Lopressor) 100 MG TABLET 1 TAB PO BID heart (Reported) Omeprazole 20 MG CAPSULE.DR 1 CAP PO BID GI (Reported) Oxycodone HCl/Acetaminophen (Oxycodone-Acetaminophen 10-325) 10 MG-325 MG TABLET 1 TAB PO 4XDP PRN PAIN (Reported) Prednisone 20 MG TABLET 1 TAB PO DAILY copd (Reported) Tamsulosin HCl 0.4 MG CAP.ER.24H 1 CAP PO QPM BPH (Reported) Triage Nurses Notes Reviewed? yes Onset: Abrupt Duration: gone now Timing: single episode today Quality/Severity: moderate Radiation: no radiation HPI: Patient is a 72-year-old male with a past medical history of COPD on 2.5 L of oxygen, hypertension, insulin-dependent diabetes, CHF couch rheumatoid arthritis on methotrexate, paroxysmal atrial fibrillation on ELIQUIS, OBSTRUCTED sleep apnea on CPAP, cataracts glaucoma in which old records indicate the patient was admitted here to [facility] in the first week of August for concerns of near -syncope hypotension paroxysmal A. fib and CHF exacerbation patient then was placed in observation again to [facility] on August 23 for concerns of hypotension and intermittent episodes of bradycardia old records indicate that is scheduled ISABELA cardioversion was to be scheduled patient's peripheral vascular tech Dr. López Patient was brought in by ambulance from private residence at home with family was concerned of lethargy fatigue confusion and blood pressure and heart rate to be uncontrolled Patient denies any fever chills chest pain arm pain jaw pain nausea vomiting cough denies any new shortness of breath Does not complain of worsening leg swelling Denies any pain (Simeon Talley) Past History Travel History Traveled to [place] past 21 day No Medical History Any Pertinent Medical History? 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 Refer elsewhere in this and other documents for additional details. According to the patient's report he was asymptomatic and functionally unrestricted by his back prior to this injury. He did have functional limitation and restriction because of his other medical conditions. Refer to other inpatient and outpatient medical records for details regarding pre-injury functional status and deficits. History of MRSA: No History of VRE: Yes History of CDIFF: No Surgical History Surgical History: N (jjjg) Psychosocial History Who do you live with Spouse Services at Home Nursing, Oxygen (2.5 liters) What is your primary language Turkmen Family History Family History, If Any: MOTHER FHx: cancer Hx Contributory? No (Simeon Talley) Review of Systems Review of Systems Constitutional: Reports: see HPI. Denies: chills, fever. EENTM: Reports: no symptoms. Respiratory: Reports: see HPI, short of breath. Cardiovascular: Reports: see HPI. GI: Reports: no symptoms. Genitourinary: Reports: no symptoms. Musculoskeletal: Reports: no symptoms. Skin: Reports: no symptoms. Neurological/Psychological: Reports: no symptoms. Hematologic/Endocrine: Reports: no symptoms. Immunologic/Allergic: Reports: no symptoms. All Other Systems: Reviewed and Negative (Simeon Talley) Physical Exam Physical Exam General Appearance: lethargic, obese Head: atraumatic Eyes: Bilateral: normal appearance, PERRL, EOMI. Ears, Nose, Throat: hearing grossly normal Neck: normal inspection Respiratory: chest non-tender, quiet respiration, decreased breath sounds, respiratory distress (MILD RESPIRATORY DISTRESS) Cardiovascular: irregularly irregular Peripheral Pulses: 2+ radial (R), 2+ dorsalis pedis (R), 2+ dorsalis pedis (L) Gastrointestinal: normal bowel sounds, soft, non-tender Extremities: pedal edema (+3 BILATERAL PITTING ) Neurologic/Psych: no motor/sensory deficits, oriented x 3, jammer operator II-XII nml as tested Skin: intact, normal color Core Measures ACS in differential dx? Yes CVA/TIA Diagnosis No Sepsis Present: No Sepsis Focused Exam Completed? No (Simeon Talley) Progress Differential Diagnosis: AMI, aortic dissection, atrial fibrillation, cholecystitis, CHF/pulm edema, costochondritis, hyperkalemia, hypovolemia, hyperthyroid, hyperventilation, intracranial hemorrhage, myocarditis, pancreatitis, pericarditis, pneumonia, pneumothorax, PSVT, pulmonary embolism, PUD/GERD, PVCs/PACs, respiratory failure, sepsis, unstable angina, V-fib/V-Tach, WPW syndrome Plan of Care: Orders Procedure Date/time Status TROPONIN LEVEL 09/03 115 Complete MAGNESIUM 09/03 1150 Complete LACTIC ACID 09/03 1150 Complete COMPREHENSIVE METABOLIC PANEL 09/03 1150 Complete CBC WITHOUT DIFFERENTIAL 09/03 115 Complete B-TYPE NATRIURETIC PEP (BNP) 09/03 115 Complete EKG 09/03 1142 Active Laboratory Tests 09/03/17 1450: Lactic Acid Cancelled 09/03/17 1210: Anion Gap 8, Estimated GFR > 60, BUN/Creatinine Ratio 32.5 H, Glucose 263 H, Lactic Acid 1.3, Calcium 9.1, Magnesium 1.9, Total Bilirubin 0.5, AST 18, ALT 47 , Alkaline Phosphatase 57, Troponin I < 0.01, Bju-E-Zpgyedmbsmh Pept 791 H, Total Protein 5.8 L, Albumin 3.3 L, Globulin 2.5, Albumin/Globulin Ratio 1.3, CBC w Diff NO MAN DIFF REQ, RBC 4.01 L, MCV 95.7 H, MCH 31.7 H, MCHC 33.1, RDW 17.8 H, MPV 7.3 L, Gran % 77.9 H, Lymphocytes % 15.7 L, Monocytes % 5.6, Eosinophils % 0.5, Basophils % 0.3, Absolute Granulocytes 8.8 H, Absolute Lymphocytes 1.8, Absolute Monocytes 0.6, Absolute Eosinophils 0.1, Absolute Basophils 0 Patient is using mild accessory muscles upon breathing however at 3 L patient is 97% Patient is alert and oriented following all commands appropriately afebrile and nontoxic-appearing appears to be lethargic although this may be baseline for patient It is noted to me that the family was concerned today of a neurological events that they witnessed however the family members not here to describe this event however patient is alert and oriented 3 following all commands appropriately gag reflex intact patient was able to swallow 3 ounces of water NIH stroke scale 0 Patient had unchanged images and blood work negative troponin and EKG was unremarkable unchanged patient is currently resting comfortably at bedside, discussed patient with Dr. López in which he states that he received a phone call from the home visiting nurse for concerns of hypotension and bradycardia however patient has been having persistent since rate controlled atrial fibrillation between 80 and 90 bpm and has been normotensive on the emergency room. No signs of infectious process or worsening COPD or CHF He advised the patient can be safely discharged Discussed disposition plan with the patient and family members were [place] has no questions Discussed patient with Dr. DURHAM WHO AGREES Diagnostic Imaging: Viewed by Me: Radiology Read, CT Scan. Radiology Impression: no acute abnormality Initial ED EK BPM,SINUS PAC Prior EKG: unchanged Comments: PATIENT: JANETTE PAEZ PRESENT AGE: 72 PATIENT ACCOUNT NO: [id number] : 43 LOCATION: ER ORDERING PHYSICIAN: Simeon PRITCHARD SERVICE DATE: 09/03/17 EXAM TYPE: RAD - XRY-PORTABLE CHEST XRAY EXAMINATION: XR PORTABLE CHEST CLINICAL INFORMATION: Shortness of breath. COMPARISON: Chest x-ray dated 08/23/2017. TECHNIQUE: Portable AP semierect view of the chest was obtained. FINDINGS: EKG leads overlie the chest. The cardiomediastinal silhouette is enlarged. Calcification of the aortic arch is seen. As noted previously, central vascular congestion and streaky perihilar opacities are seen, consistent with pulmonary edema. Small right-sided pleural effusion is also seen, extending into the right minor fissure. There may be atelectatic changes in the lung bases bilaterally, more so on the right than the left. No pneumothorax is seen. Bony structures are unremarkable. IMPRESSION: Findings are consistent with pulmonary edema with small right-sided pleural effusion and probable right-sided basilar atelectasis. Findings are similar to the previous exam. DICTATED BY: Debra TINEO,Candida Ryder DATE/TIME DICTATED:09/03/171327 TEST BORE HELPER:FINA DATE/TIME TRANSCRIBED:09/03/17 PATIENT: JANETTE PAEZ PRESENT AGE: 72 PATIENT ACCOUNT NO: [id number] : 43 LOCATION: ER ORDERING PHYSICIAN: Simeon PRITCHARD SERVICE DATE: 09/03/17 EXAM TYPE: CAT - CT HEAD WO IV CONTRAST EXAMINATION: CT HEAD WITHOUT CONTRAST CLINICAL INFORMATION: Confusion. Question neurological event. COMPARISON: CT head 07/02/2017. TECHNIQUE: Contiguous axial imaging was performed from the skull base to vertex without intravenous administration of contrast. DLP: 623.04 mGy-cm FINDINGS: There is no acute intracranial hemorrhage or abnormal extra-axial collection. No intracranial mass effect or midline shift. Lateral and third ventricles are proportionate to the subarachnoid spaces. No hydrocephalus. Gregory-white matter differentiation is grossly preserved and there is no evidence of acute territorial infarct. The calvarium and skull base are intact. Mastoid air cells and middle ear cavities are well-aerated. The right maxillary sinus is completely opacified. An osteoma within the right frontal sinus is noted. IMPRESSION: Unremarkable CT scan of the head. No evidence of acute territorial infarct or hemorrhage. DICTATED BY: Abisai Roland MD DATE/TIME DICTATED:09/03/171333 TEST BORE HELPER:FINA DATE/TIME TRANSCRIBED:09/03/171333 (Simeon Talley) Departure Departure Disposition: HOME OR SELF CARE Condition: Stable Clinical Impression Primary Impression: CHF (congestive heart failure) Secondary Impressions: COPD (chronic obstructive pulmonary disease) Referrals: Tanmay Zee MD (PCP/Family) Additional Instructions: As discussed follow-up with a peripheral vascular tech as directed, continue home medications as directed, if symptoms worsen or if you develop a new concerning symptom return to emergency room Departure Forms: Customer Survey General Discharge Information (Simeon Talley) PA/RADIO BOARD OPERATOR Co-Sign Statement Statement: ED Attending supervision documentation- [] I saw and evaluated the patient. I have also reviewed all the pertinent lab results and diagnostic results. I agree with the findings and the plan of care as documented in the PA's/RADIO BOARD OPERATOR's documentation. [y] I have reviewed the ED Record and agree with the PA's/RADIO BOARD OPERATOR's documentation. [] Additions or exceptions (if any) to the PAs/RADIO BOARD OPERATOR's note and plan are summarized below: [] The patient was discussed with me. Given that the patient has perfectly stable vital signs and no neurological deficits he will be discharged. Questionable hypotension and "neuro symptoms" was the reason for coming in. The family reports neither, it was felt that by the visiting TERRITORY REPRESENTATIVE. The patient and family report no symptoms and he has stable vital signs after observation in the emergency room. We will discharge him for continued outpatient management. (Sarah TINEO,[facility]) Critical Care Note Critical Care Note Critical Care Time: non-applicable (Simeon Talley)
[2017-09-03 12:20] LABS: ABSOLUTE BASOPHIL COUNT 0 /CUMM (0.0-0.2); ABSOLUTE EOSINOPHIL COUNT 0.1 /CUMM (0.0-0.7); ABSOLUTE GRANULOCYTE CT 8.8 /CUMM (1.4-6.5); ABSOLUTE LYMPH COUNT 1.8 /CUMM (1.2-3.4); ABSOLUTE MONOCYTE COUNT 0.6 /CUMM (0.10-0.60); BASOPHIL % 0.3 % (0.0-2.0); EOSINOPHIL % 0.5 % (0-5); GRANULOCYTE % 77.9 % (42.2-75.2); HEMATOCRIT 38.3 % (42-52); MEAN CORPUSCULAR HGB 31.7 PG (27.0-31.0); MEAN CORPUSCULAR HGB CONC 33.1 G/DL (33.0-37.0); MEAN CORPUSCULAR VOLUME 95.7 FL (80.0-94.0); MEAN PLATELET VOLUME 7.3 FL (7.4-10.4); PLATELET COUNT 196 /CUMM (130-400); RBC DISTRIBUTION WIDTH 17.8 % (11.5-14.5); RED BLOOD CELL CT 4.01 /CUMM (4.70-6.10); WHITE BLOOD CELL COUNT 11.3 /CUMM (4.8-10.8)
--- NOTE | 2017-09-03 13:34 | RADIOLOGY REPORT ---
EXAMINATION: XR PORTABLE CHEST CLINICAL INFORMATION: Shortness of breath. COMPARISON: Chest x-ray dated 08/23/2017. TECHNIQUE: Portable AP semierect view of the chest was obtained. FINDINGS: EKG leads overlie the chest. The cardiomediastinal silhouette is enlarged. Calcification of the aortic arch is seen. As noted previously, central vascular congestion and streaky perihilar opacities are seen, consistent with pulmonary edema. Small right-sided pleural effusion is also seen, extending into the right minor fissure. There may be atelectatic changes in the lung bases bilaterally, more so on the right than the left. No pneumothorax is seen. Bony structures are unremarkable. IMPRESSION: Findings are consistent with pulmonary edema with small right-sided pleural effusion and probable right-sided basilar atelectasis. Findings are similar to the previous exam.
--- NOTE | 2017-09-03 13:40 | CT SCAN REPORT ---
EXAMINATION: CT HEAD WITHOUT CONTRAST CLINICAL INFORMATION: Confusion. Question neurological event. COMPARISON: CT head 07/02/2017. TECHNIQUE: Contiguous axial imaging was performed from the skull base to vertex without intravenous administration of contrast. DLP: 623.04 mGy-cm FINDINGS: There is no acute intracranial hemorrhage or abnormal extra-axial collection. No intracranial mass effect or midline shift. Lateral and third ventricles are proportionate to the subarachnoid spaces. No hydrocephalus. Gregory-white matter differentiation is grossly preserved and there is no evidence of acute territorial infarct. The calvarium and skull base are intact. Mastoid air cells and middle ear cavities are well-aerated. The right maxillary sinus is completely opacified. An osteoma within the right frontal sinus is noted. IMPRESSION: Unremarkable CT scan of the head. No evidence of acute territorial infarct or hemorrhage.
[2017-09-03 14:05] VITALS: BP 118/65
--- NOTE | 2017-09-03 14:37 | CT SCAN REPORT ---
EXAMINATION: CT CHEST WITHOUT CONTRAST CLINICAL INFORMATION: Family states patient had a neurologic event today. Confusion. Shortness of breath. COMPARISON: The scan of the chest dated 08/23/2017, CT scan of the chest dated 07/02/2017, 06/02/2016, and 01/15/2015. TECHNIQUE: Multidetector volumetric CT imaging of the chest was obtained noncontrast. Sagittal and coronal reformations were obtained. DLP: 685.08 mGy-cm. FINDINGS: LUNGS: There is a moderate size right-sided pleural effusion seen layering posteriorly all the way up to the lung apex. Trace left-sided pleural effusion is also seen. There is associated volume loss and compressive atelectasis in the right lower lobe. There is also some patchy opacity in the medial right middle lobe and linear opacity in the inferior lingula, likely representing atelectatic changes as well. Dependent atelectasis also noted in the right upper lobe. Similar findings were noted previously. As noted previously, there are several solid noncalcified pulmonary nodules in the left upper lobe, measuring between 2 and 5 mm (series 4, image 107, 142, 169, and 195), all unchanged dating back to at least 01/15/2015, consistent with a benign etiology. No new or enlarging pulmonary nodule or mass seen. No pneumothorax. Central airways patent. LYMPHOVASCULAR STRUCTURES: Ascending aorta is ectatic, measuring 3.8 cm in maximal AP diameter at the level of the right main pulmonary artery. Moderate atherosclerotic calcifications of the aorta and branch vessels, including the coronary arteries are seen. Dense mitral annular calcifications are noted. Heart size normal. No pericardial effusion. No mediastinal, hilar or axillary adenopathy or free fluid collection. THYROID GLAND: There is subtle focal nodular low density seen within the left lobe of the thyroid gland (series 2, image 1), most likely related to beam hardening artifact. There is a tiny 6 mm low-attenuation nodule in the right lobe of the thyroid gland eccentric coarse calcification (series 2, image 2), unchanged from prior studies (example 07/02/2017). Visualized portions of thyroid gland otherwise unremarkable. CHEST WALL: There is prominent density seen in the retroareolar fat of both breasts, unchanged dating back to at least 06/02/2016, consistent with bilateral gynecomastia. UPPER ABDOMEN: Included portions of the solid organs in the upper abdomen within normal limits. BONES: Old healed fracture deformities of the ribs bilaterally are noted. Multilevel moderate vertebral spondylosis is seen in the thoracic spine. No suspicious focal findings. IMPRESSION: 1. No significant change in trace left-sided and moderate right-sided pleural effusion and in multiple areas of atelectasis in the right lower lobe, lingula and right upper lobe. 2. No significant change in left upper lobe solid noncalcified pulmonary nodules dating back to 01/15/2015, consistent with a benign etiology. 3. Moderate coronary artery calcifications. 4. Stable small nodular density with eccentric calcification in the right lobe of the thyroid gland. 5. Incidentally noted is gynecomastia, bilaterally symmetric and unchanged over multiple years.
== END 2017-09-03 15:45 ==
LOC: ERH 11:40
PROVIDERS: Physician Assistant
DX: I50.9 Heart failure, unspecified (principal); J44.9 Chronic obstructive pulmonary disease, unspecified
CPT/HCPCS: 1263; 71045; 93005; 93010

== ENCOUNTER 2017-09-14 21:24 | Inpatient (IN) | payer OTHER, MEDICARE ==
[~2017-09-14] VITALS: Ht 172.7 cm; Wt 119.9 kg
--- NOTE | 2017-09-14 21:55 | ED DYSPNEA/ASTHMA COMPLAINT ---
History of Present Illness General Chief Complaint: Dyspnea (COPD, CHF, Other) Stated Complaint: "BIBA PER EMS DIFF.BREATHING,HIGH BLOOD SUGAR" Source: patient, old records, EMS Exam Limitations: clinical condition Vital Signs & Intake/Output Vital Signs & Intake/Output Vital Signs Date Time Temp Pulse Resp B/P B/P Pulse O2 O2 Flow FiO2 Mean Ox Delivery Rate 09/14 2245 89 95 09/14 2210 78 Nasal 5.0L Cannula 09/14 2136 91 Nasal 5.0L Cannula 09/14 2128 96.2 80 22 132/75 90 Nasal 5.0L Cannula Allergies Coded Allergies: Sulfa (Sulfonamide Antibiotics) (Intermediate, RASH/HIVES 06/06/17) Reconcile Medications Albuterol Sulfate 2.5 MG/3 ML (0.083 %) VIAL.NEB 1 Vial INH/TAPAN 5 TIMES A DAY COPD (Reported) Alendronate Sodium 70 MG TABLET 1 TAB PO QTHURS BONES (Reported) in the morning, at least 30 minutes before the first food, beverage, or medication of the day Allopurinol 300 MG TABLET 1 TAB PO DAILY GOUT (Reported) Apixaban (Eliquis) 5 MG TABLET 1 TAB PO BID Atrial Fibrilliation Budesonide/Formoterol Fumarate (Symbicort 160-4.5 Mcg Inhaler) 160 MCG-4.5 MCG/ ACTUATION HFA.AER.AD 2 PUF INH BID COPD (Reported) Cyanocobalamin (Vitamin B-12) (Cyanocobalamin Injection) 1,000 MCG/ML VIAL 1 ML IM Q30D SUPPLEMENT (Reported) Diltiazem HCl (Cardizem Cd) 240 MG CAP.ER.24H 240 MG PO DAILY heart . Docusate Sodium (Stool Softener) 100 MG CAPSULE 1 CAP PO BID STOOL SOFTENER ( Reported) Duloxetine HCl (Cymbalta) 60 MG CAPSULE.DR 1 CAP PO DAILY MENTAL HEALTH ( Reported) Folic Acid 1 MG TABLET 1 TAB PO BID SUPPLEMENT (Reported) Furosemide (Lasix) 20 MG TABLET 1 TAB PO DAILY Fluid Retention Insulin Glargine,Hum.rec.anlog (Lantus Solostar) 100 UNIT/ML (3 ML) INSULN.PEN 30 UNIT SC BID DIABETES (Reported) Lovastatin 40 MG TABLET 1 TAB PO QPM CHOLESTEROL (Reported) with food Methotrexate 2.5 MG TABLET 6 TAB PO QTHURS RA (Reported) Metoprolol Tartrate (Lopressor) 100 MG TABLET 1 TAB PO BID heart (Reported) Omeprazole 20 MG CAPSULE.DR 1 CAP PO BID GI (Reported) Oxycodone HCl/Acetaminophen (Oxycodone-Acetaminophen 10-325) 10 MG-325 MG TABLET 1 TAB PO 4XDP PRN PAIN (Reported) Prednisone 20 MG TABLET 1 TAB PO DAILY copd (Reported) Tamsulosin HCl 0.4 MG CAP.ER.24H 1 CAP PO QPM BPH (Reported) Core Measure Meds Pre-Hospital eliquis Triage Note: PT BIBA FROM HOME SECONDARY TO 2 WEEKS OF GRADUAL CHANGE IN MENTAL STATUS, ELEVATED GLUCOSE LEVELS AND DIFF BREATHING. OON ARRIVAL TO THE ED PT PLACED ON CARDIAC MONITORING AND O2 VIA NASAL CANNULA AT 5 LITERS WITH O2 SAT OF 91%. + 3 EDEMA NOTED TO BILATERAL LOWER EXTRTEMITIES. PT ON LASIX PER . + HX OF COPD, O2 DEPENDENT. Triage Nurses Notes Reviewed? yes Onset: 2 weeks Duration: week(s):, constant, continues in ED, getting worse Timing: recent history Severity: severe Activities at Onset: rest Prior Episodes/Possible Cause: frequent episodes Modifying Factors: Worsens With: movement. Associated Symptoms: weakness HPI: 2 weeks prior to admission spell she reports increasing shortness of breath dyspnea on exertion he has also become increasingly confused. There's been no fever chills nausea vomiting diarrhea abdominal pain chest pain headache dysuria rash bleeding. Past History Travel History [place] past 21 [place] No Medical History Any Pertinent Medical History? 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 Refer elsewhere in this and other documents for additional details. According to the patient's report he was asymptomatic and functionally unrestricted by his back prior to this injury. He did have functional limitation and restriction because of his other medical conditions. Refer to other inpatient and outpatient medical records for details regarding pre-injury functional status and deficits. History of MRSA: No History of VRE: Yes History of CDIFF: No Surgical History Surgical History: N (jjjg) Psychosocial History Who do you live with Spouse Services at Home Nursing, Oxygen (2.5 liters) What is your primary language Danish Tobacco Use: Cognitive Impairment Family History Family History, If Any: MOTHER FHx: cancer Hx Contributory? No Review of Systems Review of Systems Constitutional: Reports: see HPI, weakness. EENTM: Reports: no symptoms. Respiratory: Reports: see HPI, short of breath. Cardiovascular: Reports: no symptoms. GI: Reports: no symptoms. Genitourinary: Reports: no symptoms. Musculoskeletal: Reports: no symptoms. Skin: Reports: no symptoms. Neurological/Psychological: Reports: see HPI, cognitive dysfunction, confusion, weakness. Hematologic/Endocrine: Reports: no symptoms. Immunologic/Allergic: Reports: no symptoms. All Other Systems: Reviewed and Negative Physical Exam Physical Exam General Appearance: well developed/nourished, moderate distress, severe distress , obese Head: atraumatic, normal appearance Eyes: Bilateral: normal appearance, PERRL, EOMI. 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 Yes No ASA d/t Pharmacological CI CVA/TIA Diagnosis No Sepsis Present: No Sepsis Focused Exam Completed? No Progress Differential Diagnosis: bronchitis, CHF, COPD, pneumonia Plan of Care: Orders Procedure Date/time Status ARTERIAL BLOOD GAS (GEN) 09/15 0030 Active Patient Data 09/14 2322 Active Admit to inpatient 09/14 2249 Active BLOOD CULTURE 09/14 2249 Active BIPAP 09/140 Complete ARTERIAL BLOOD GAS (GEN) 09/14 2154 Complete TROPONIN LEVEL 09/14 2144 Complete MAGNESIUM 09/14 2144 Complete COMPREHENSIVE METABOLIC PANEL 09/14 2144 Complete CBC WITHOUT DIFFERENTIAL 09/14 2144 Complete B-TYPE NATRIURETIC PEP (BNP) 09/14 2144 Complete EKG 09/14 2126 Active Current Medications Sig/Lakisha Start time Last Medication Dose Stop Time Status Admin Azithromycin 500 MG ONCE ONE 09/14 2299 AC 09/14 (Zithromax) 09/14 2358 233 Sodium Chloride 250 ML (Normal Saline 0.9%) Laboratory Tests 09/14/172204: pH 7.33 L, pCO2 74 *H, pO2 122 H, HCO3 39 H, ABG O2 Sat (Measured) 96.0, P-50 (Temp Corrected) Y, Carboxyhemoglobin 2.6, O2 Concentration % 5L, Temperature 96.7 L, O2 Delivery Method NC, Phlebotomy Draw Site RIGHT RADIAL 09/14/172151: Anion Gap 1 L, Estimated GFR > 60, BUN/Creatinine Ratio 28.6 H, Glucose 281 H , Calcium 8.9, Magnesium 1.8, Total Bilirubin 0.7, AST 24, ALT 73 H, Alkaline Phosphatase 77, Troponin I 0.02, Myv-D-Uapadylxehf Pept 845 H, Total Protein 5.9 L, Albumin 3.4 L, Globulin 2.5, Albumin/Globulin Ratio 1.4, CBC w Diff NO MAN DIFF REQ, RBC 4.13 L, MCV 96.7 H, MCH 30.7, MCHC 31.7 L, RDW 18.0 H, MPV 7.8, Gran % 90.1 H, Lymphocytes % 5.0 L, Monocytes % 4.9, Eosinophils % 0, Basophils % 0, Absolute Granulocytes 11.1 H, Absolute Lymphocytes 0.6 L, Absolute Monocytes 0.6, Absolute Eosinophils 0, Absolute Basophils 0 Microbiology 09/14 2332 BLOOD: Blood Culture - RECD 09/14 2330 BLOOD: Blood Culture - RECD Diagnostic Imaging: Viewed by Me: Radiology Read. Discussed w/RAD: Radiology Read. CXR Impression: 1. Bibasilar opacification, consider atelectasis, aspiration, or pneumonia. 2. Nonspecific bronchovascular prominence could reflect sequela of vascular congestion. No convincing overt pulmonary edema. Initial ED EKG: AFIB (flutter) Prior EKG: unchanged Rhythm Strip: atrial fibrillation, atrial flutter Departure Departure Disposition: STILL A PATIENT Condition: Stable Clinical Impression Primary Impression: Respiratory failure with hypercapnia Secondary Impressions: CHF (congestive heart failure), COPD exacerbation, Pneumonia Referrals: Saadia TINEO,Tanmay Quintanilla (PCP/Family) Departure Forms: Customer Survey General Discharge Information Admission Note Spoke With: Darrin Mckenzie MD Documentation of Exam: Documentation of any treatments & extenuating circumstances including Concerns Regarding Discharge (functional status, medication knowledge or non-compliance, living conditions, etc.) that warrant an admission rather than observation: BiPAP supplemental oxygen IV antibiotic IV diuresis IV steroids beta agonist nebs medication adjustment pulmonary evaluation cardiology evaluation ICU monitoring continuing care discharge planning Critical Care Note Critical Care Note Critical Care Time: 30-74 min (45)
[2017-09-14 22:01] LABS: ABSOLUTE BASOPHIL COUNT 0 /CUMM (0.0-0.2); ABSOLUTE EOSINOPHIL COUNT 0 /CUMM (0.0-0.7); ABSOLUTE GRANULOCYTE CT 11.1 /CUMM (1.4-6.5); ABSOLUTE LYMPH COUNT 0.6 /CUMM (1.2-3.4); ABSOLUTE MONOCYTE COUNT 0.6 /CUMM (0.10-0.60); BASOPHIL % 0 % (0.0-2.0); EOSINOPHIL % 0 % (0-5); HEMATOCRIT 39.9 % (42-52); MEAN CORPUSCULAR HGB 30.7 PG (27.0-31.0); MEAN CORPUSCULAR HGB CONC 31.7 G/DL (33.0-37.0); MEAN CORPUSCULAR VOLUME 96.7 FL (80.0-94.0); MEAN PLATELET VOLUME 7.8 FL (7.4-10.4); PLATELET COUNT 147 /CUMM (130-400); RED BLOOD CELL CT 4.13 /CUMM (4.70-6.10); WHITE BLOOD CELL COUNT 12.4 /CUMM (4.8-10.8)
[2017-09-14 22:19] LABS: GRANULOCYTE % 90.1 % (42.2-75.2)
--- NOTE | 2017-09-14 22:42 | RADIOLOGY REPORT ---
EXAMINATION: XR PORTABLE CHEST CLINICAL INFORMATION: Shortness of breath, hypoxia, rales. COMPARISON: Chest radiography 09/03/2017. TECHNIQUE: Portable frontal view of the chest was obtained. FINDINGS: The lungs are well expanded. There is mild bibasilar opacification. Mild bronchovascular prominence. No large pleural effusion or pneumothorax. Mediastinal contours have not significantly changed, with top normal to borderline prominent cardiac size. Aortic atherosclerotic calcification. No acute osseous abnormalities. IMPRESSION: 1. Bibasilar opacification, consider atelectasis, aspiration, or pneumonia. 2. Nonspecific bronchovascular prominence could reflect sequela of vascular congestion. No convincing overt pulmonary edema.
--- NOTE | 2017-09-14 23:37 | History & Physical ---
Molly Church 09/14/17 7936: General Information and HPI MD Statement: I have seen and personally examined JANETTE PAEZ and documented this H&P. The patient is a 72 year old M who presented with a patient stated chief complaint of []. History of Present Illness: Patient is a 72 year old male with pmh of COPD on 2-3 L home O2, HTN, DM, diastolic CHF (recent echo 55%), RA (methotrexate), atrial flutter, atrial fibrillation on eliquis, BOB on CPAP. Patient brought to the ER noted to be disoriented and sleepy by . Report of assessment was given by nurse who spoke with EMS and who was contacted over the phone given patient non- verbal on BiPAP in the ER. Patient described to be disoriented today and yesterday. Patient awoke disoriented today. Last known to be well the day before yesterday before stated to be "not himself." Patients oxygen yesterday 90% on 2.5 L NC at home as per . claims he sleeps alot more recently for the past month than usual. Oxygen today was noted to be 84-90% on 2.5L NC. did not adjust oxygen higher. EMS was called at 9PM today after awakening patient to eat dinner and he was "out of it." Patient was noted to be alert but not oriented. When EMS arrived, oxygen was noted to be 70% on 2L NC that was told to the nursing staff in the emergency department. Patient did not have nebulizer treatments today since he was sleeping all day. He was noted to tolerate PO well today having breakfast and lunch with no associated cough or difficulty swallowing. Patients lasix increased from 20 to [address] Zee patients primary care physician yesterday. notes patient has lost a couple of pounds recently, unsure of how much but most likely from water pill. Patient noted to be on chronic prednisone at home, 20mg daily. Patient noted to take 1 oxycodone early this morning due to increasing back pain in the clinical informatics physician. did not note if patient had any chest pain, palpitations, diziness, nausea, vomiting or changes in bowel/bladder movement. Of note, patient recently discharged on 08/16/17 where he was treated for Atrial flutter and discharged on cardizem 240, follow up in CHF clinic and continue oxygen and chronic prednisone therapy at home. Patients central office repairer supervisor is Dr. Blake was supposed to be seen 09/17/17, last seen on previous admission. Patients international logistics analyst is Dr. López cancelled 2 appointments, patient was supposed to go yesterday given A-fib on eliquis. 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 Refer elsewhere in this and other documents for additional details. According to the patient's report he was asymptomatic and functionally unrestricted by his back prior to this injury. He did have functional limitation and restriction because of his other medical conditions. Refer to other inpatient and outpatient medical records for details regarding pre-injury functional status and deficits. History of MRSA: No History of VRE: Yes History of CDIFF: No Surgical History Surgical History: N (jjjg) Past Family/Social History Family History Relations & Conditions if any MOTHER FHx: cancer Psychosocial History Who Do You Live With? spouse Services at Home: Nursing, Oxygen (2.5 liters) Functional Ability Ambulation: independent, Ambulatory distance was limited by pulmonary condition and not by any spinal symptoms prior to this injury. Pre-injury functional ability is detailed in "Other Medical Hx" section. Review of Systems Review of Systems Constitutional: Denies: see HPI. Exam & Diagnostic Data Last 24 Hrs of Vital Signs/I&O Vital Signs Date Time Temp Pulse Resp B/P B/P Pulse O2 O2 Flow FiO2 Mean Ox Delivery Rate 09/14 2245 89 95 09/14 2211 78 Nasal 5.0L Cannula 09/14 2136 91 Nasal 5.0L Cannula 09/14 2128 96.2 80 22 132/75 90 Nasal 5.0L Cannula Intake & Output 09/15 0800 09/15 0000 09/14 1600 Intake Total 0 Output Total Balance 0 Intake, Oral 0 Patient 280 lb Weight Weight Reported by Patient Measurement Method Physical Exam General Appearance Alert, Mild Distress, non-verbal; nodding head yes or no on bipap Skin No Rashes, No Breakdown HEENT PERRLA, EOMI, Mucous Membr. moist/pink Cardiovascular Regular Rate, Normal S1, Normal S2 Lungs decreased breath sounds, on bipap, morbidly obese Abdomen Normal Bowel Sounds, Soft, No Tenderness Neurological unassessed, alert, not oriented, non-verbal Extremities No Clubbing, No Cyanosis, +3 pitting edema up to knees in bilateral lower extremities, no erythema, non-tender Last 24 Hrs of Labs/Kiel: Laboratory Tests 09/14/17 2205: pH 7.33 L, pCO2 74 *H, pO2 122 H, HCO3 39 H, ABG O2 Sat (Measured) 96.0, P-50 (Temp Corrected) Y, Carboxyhemoglobin 2.6, O2 Concentration % 5L, Temperature 96.7 L, O2 Delivery Method NC, Phlebotomy Draw Site RIGHT RADIAL 09/14/172151: Anion Gap 1 L, Estimated GFR > 60, BUN/Creatinine Ratio 28.6 H, Glucose 281 H , Calcium 8.9, Magnesium 1.8, Total Bilirubin 0.7, AST 24, ALT 73 H, Alkaline Phosphatase 77, Troponin I 0.02, Bro-P-Etjwkcmavls Pept 845 H, Total Protein 5.9 L, Albumin 3.4 L, Globulin 2.5, Albumin/Globulin Ratio 1.4, CBC w Diff NO MAN DIFF REQ, RBC 4.13 L, MCV 96.7 H, MCH 30.7, MCHC 31.7 L, RDW 18.0 H, MPV 7.8, Gran % 90.1 H, Lymphocytes % 5.0 L, Monocytes % 4.9, Eosinophils % 0, Basophils % 0, Absolute Granulocytes 11.1 H, Absolute Lymphocytes 0.6 L, Absolute Monocytes 0.6, Absolute Eosinophils 0, Absolute Basophils 0 Microbiology 09/14 2332 BLOOD: Blood Culture - RECD 09/14 2330 BLOOD: Blood Culture - RECD Diagnostic Data EKG Results Atrial Flutter HR 87, QTC 472 Assessment/Plan Assessment: Patient is a 72 year old male with pmh of COPD on 2-3L O2 (chronic prednisone therapy), diastolic CHF, atrial fibrillation on eliquis, BOB on cpap, diastolic CHF, RA (methotrexate), HTN, HLD who presented to ED by his found to be disoriented and lethargic. Patient had an abnormal ABG on admission and switched from 5L NC to BiPAP on admission. Patient significantly non-verbal on assessment. called for further history. CXR positive for bibasilar opacifications. EMERGENCY DEPARTMENT: Given 20mg Lasix and put on BiPAP. Ceftaz + Azithro X 1. Solu Medrol 125mg IV X 1. Proventil/Atrovent treatment. Vitals: 96.2, 80, 22, 132/75; originally on 5L NC switched AB.33/74/122/39/96 Repeat AB.28/65/53/39/86 EKG: Atrial Flutter HR 87, QTC 472 Troponin: 0.02 Labs: WBC: 12.4, Hgb: 12.6, Hct: 39.9, Plt: 147 Chemistry: Na: 139, K: 4.4, Cl: 92, CO2: 46, BUN 40, Cr: 0.7, Glucose 281 Pro BNP: 845 PROBLEM LIST: 1. COPD Exacerbation 2. Alerted Mental Status 3. Atrial Flutter/Atrial Fibrillation 4. Hypertension 5. Diabetes 6. Hyperlipidemia 7. Rheumatoid Arthritis COPD EXACERBATION Patient has been noted to be significantly disoriented and lethargic and noted to be sleeping more as per . Patient is on chronic prednisone therapy at home of 20mg and 2.5L NC. Abnormal ABG on admission and patient placed on BiPAP. * Antibitoics: Ceftaz + Azithromycin + 1x dose of Vancomycin to cover for S. Pneumo * iv solumedrol 40 q8 tomorrow * Pulmonology consultation in AM * Continue on BiPAP * Blood cultures, sputum cultures * TRC/Nebs as needed * Vitals Q Shift ALTERED MENTAL STATUS Likely secondary to CO2 retention given patients signficiant history of COPD on 2L home O2 and chronic prednisone therapy, BOB on cpap. Patient noted to be disoriented and sleepy as per for past few days. * Re-evaluate patient in morning after more awake and alert * Previous CT head on 09/03/17 negative for any acute intracranial pathology ATRIAL FLUTTER/FIBRILLATION * Monitor on telemetry * Continue Cardizem and Eliquis HYPERTENSION * Continue home medications DIABETES MELLITUS * Accu-Checks * ISS HYPERLIPIDEMIA * continue home medications RHEUMATOIUD ARTHRITIS * continue home medications Code Status: Full Code DVT PPx: Eliquis Diet: Heart Healthy Diet As Ranked By This Provider Problem List: 1. Acute and chronic respiratory failure with hypoxia 2. Rheumatoid arthritis 3. Diabetes Core Measures/Misc (10/28) Acute Coronary Syndrome ACS Diagnosis: No Congestive Heart Failure Congestive Heart Failure Diagnosis No Cerebrovascular Accident CVA/TIA Diagnosis: No VTE (View Protocol) VTE Risk Factors Age>40 No Mechanical VTE Prophylaxis d/t N/A MechProphylax Ordered No VTE Pharm Prophylaxis d/t NA PharmProphylax ordered Sepsis (View protocol) Sepsis Present: No If YES complete Sepsis Event Note If YES complete Sepsis Event Note Renae Denis 09/15/17 0125: Core Measures/Misc (10/28) Sepsis (View protocol) If YES complete Sepsis Event Note If YES complete Sepsis Event Note Resident Review Statement Resident Statement: examined this patient, discussed with architecture intern, agreed with architecture intern, discussed with family Other Findings: Patient is 72-year-old male, with past medical history of A. fib on Eliquis, heart failure with preserved ejection fraction, hypertension, COPD on 2.5 L oxygen at home, obstructive sleep apnea on CPAP was brought in from home with a chief complaint of increased lethargy and drowsiness. Most of the information was obtained from as patient was completely disoriented in the ER. stated that since past 2 days, patient has been not himself and has become more lethargic and disoriented. She reported that he has been sleeping all day and was not with it. Patient had his breakfast and lunch today which he ate well however at night when woke him up for the dinner, patient looked very confused and disoriented. states that his oxygen today has been between 84 90% on 2-1/2 L. Per ER staff, EMS reported that at home they found the patient to have oxygen saturation of 70% Patient sees Dr. Blake as his central office repairer supervisor and Dr. López as his international logistics analyst. Recently patient's dose of Lasix was increased from 20 daily to [address] camargo. also reported that patient took 1 tablet of oxycodone today in the morning for his chronic back pain. Patient has been to [facility] multiple times, he was admitted from August 13 -2017 for a flutter, again observed on August 22 for disorientation/altered mental status, and then seen again in the ER on September 03, 2017 for altered mental status/disorientation. At that time his CT head was done which did not show any acute intracranial pathology. Labs and vitals as above Chest x-ray significant for bilateral basilar opacities. His echocardiogram from June 2017 shows mild diastolic heart failure. Problem list #1. Encephalopathy due to hypercarbic respiratory failure #2. Diastolic heart failure on Lasix #3. A. fib on Eliquis #4. Hypertension #5. Gout #6. Insulin-dependent diabetes Assessment and plan Will admit the patient to critical care unit for altered mental status and hypoxic hypercarbic respiratory failure, ABGs in ER showed PCO2 of 74, patient was started on BiPAP, repeat ABG show PCO2 of 65. We will continue BiPAP. Patient has been in the out of healthcare multiple times in the last month. We will broadly cover him for healthcare acquired pneumonia with ceftazidime, vancomycin and azithromycin. Pulmonary consult in a.m. Please reevaluate in a.m. for any improvement in mental status. Please follow-up blood culture, sputum culture, strep/pneumo antigen. Will continue for 40 IV Solu Medrol every 8 hours for tomorrow. For diabetes, fingersticks and high-dose NovoLog sliding scale. Patient takes 30 units long-acting subcutaneous insulin twice daily. will continue. We will continue the rest of his home meds which can be given once he is more awake and alert n.p.o. for now. DVT prophylaxis eliquis Patient is full code per his living will, power of admitted attorneys confirmed. Jonah TINEOClearwater 09/15/17 4025: General Information and HPI MD Statement: I have seen and personally examined JANETTE PAEZ and documented this H&P. The patient is a 72 year old M who presented with a patient stated chief complaint of [shortness of breath, lethargy]. Source of Information: family Exam Limitations: unable to give history, not alert/orientated, clinical condition Allergies/Medications Allergies: Coded Allergies: Sulfa (Sulfonamide Antibiotics) (Intermediate, RASH/HIVES 06/06/17) Home Med list Albuterol Sulfate 2.5 MG/3 ML (0.083 %) VIAL.NEB 1 Vial INH/TAPAN 5 TIMES A DAY COPD (Reported) Alendronate Sodium 70 MG TABLET 1 TAB PO QTHURS BONES (Reported) in the morning, at least 30 minutes before the first food, beverage, or medication of the day Allopurinol 300 MG TABLET 1 TAB PO DAILY GOUT (Reported) Apixaban (Eliquis) 5 MG TABLET 1 TAB PO BID Atrial Fibrilliation Budesonide/Formoterol Fumarate (Symbicort 160-4.5 Mcg Inhaler) 160 MCG-4.5 MCG/ ACTUATION HFA.AER.AD 2 PUF INH BID COPD (Reported) Cyanocobalamin (Vitamin B-12) (Cyanocobalamin Injection) 1,000 MCG/ML VIAL 1 ML IM Q30D SUPPLEMENT (Reported) Diltiazem HCl (Cardizem Cd) 240 MG CAP.ER.24H 240 MG PO DAILY heart . Docusate Sodium (Stool Softener) 100 MG CAPSULE 1 CAP PO BID STOOL SOFTENER ( Reported) Duloxetine HCl (Cymbalta) 60 MG CAPSULE.DR 1 CAP PO DAILY MENTAL HEALTH ( Reported) Folic Acid 1 MG TABLET 1 TAB PO BID SUPPLEMENT (Reported) Furosemide (Lasix) 20 MG TABLET 1 TAB PO DAILY Fluid Retention Insulin Glargine,Hum.rec.anlog (Lantus Solostar) 100 UNIT/ML (3 ML) INSULN.PEN 30 UNIT SC BID DIABETES (Reported) Lovastatin 40 MG TABLET 1 TAB PO QPM CHOLESTEROL (Reported) with food Methotrexate 2.5 MG TABLET 6 TAB PO QTHURS RA (Reported) Metoprolol Tartrate (Lopressor) 100 MG TABLET 1 TAB PO BID heart (Reported) Omeprazole 20 MG CAPSULE.DR 1 CAP PO BID GI (Reported) Oxycodone HCl/Acetaminophen (Oxycodone-Acetaminophen 10-325) 10 MG-325 MG TABLET 1 TAB PO 4XDP PRN PAIN (Reported) Prednisone 20 MG TABLET 1 TAB PO DAILY copd (Reported) Tamsulosin HCl 0.4 MG CAP.ER.24H 1 CAP PO QPM BPH (Reported) Past History Medical History Cardiovascular: AFIB, CHF, hypertension Respiratory: COPD, obstructive sleep apnea, with ongoing tobacco use disorder 02 DEPENDANT Renal: benign prost hyperplasia Musculoskeletal: rheumatoid arthritis Endocrine: INSULIN DEPENDENT DIABETIC TYPE II Review of Systems Review of Systems Constitutional: Reports: see HPI. Comments Review of systems could not be obtained given the patient's critical status. Exam & Diagnostic Data Last 24 Hrs of Vital Signs/I&O Vital Signs Date Time Temp Pulse Resp B/P B/P Pulse O2 O2 Flow FiO2 Mean Ox Delivery Rate 09/15 0417 71 92 09/15 0400 94 BIPAP 40% 09/15 0247 95 BIPAP 40% 09/15 0200 96.4 68 26 118/72 95 BIPAP 40% 09/15 0154 70 98 09/15 0101 97.3 77 24 117/61 97 BIPAP 40% 09/15 0045 94 09/15 0020 78 89 09/14 2345 97.2 78 18 122/68 96 BIPAP 09/14 2245 89 95 09/14 2211 78 Nasal 5.0L Cannula 09/147 91 Nasal 5.0L Cannula 09/14 2128 96.2 80 22 132/75 90 Nasal 5.0L Cannula Intake & Output 09/15 0800 09/15 0000 09/14 1600 Intake Total 0 Output Total Balance 0 Intake, Oral 0 Patient 259 lb 280 lb Weight Weight Bed scale Reported by Patient Measurement Method Physical Exam General Appearance Moderate Distress, non-verbal; nodding head yes or no on bipap Skin No Rashes, No Breakdown Skin Temp/Moisture Exam: Warm/Dry Sepsis Skin Exam (color): Normal for Ethnicity HEENT Atraumatic, PERRLA, EOMI, Mucous Membr. moist/pink Neck Supple, No JVD Lymphatic Axillary nl, Cervical nl Cardiovascular Regular Rate, Normal S1, Normal S2 Lungs decreased breath sounds, on bipap, morbidly obese Abdomen Normal Bowel Sounds, Soft, No Tenderness Neurological alert, not oriented, non-verbal Sepsis Peripheral Pulse Location: Dorsalis Pedis Sepsis Peripheral Pulse Exam: Normal Sepsis Cap Refill Exam: <2 Sec Last 24 Hrs of Labs/Kiel: Laboratory Tests 09/15/17 0510: Sodium Pending, Potassium Pending, Chloride Pending, Carbon Dioxide Pending, Anion Gap Pending, BUN Pending, Creatinine Pending, BUN/Creatinine Ratio Pending , CBC w Diff Pending, WBC Pending, RBC Pending, Hgb Pending, Hct Pending, MCV Pending, MCH Pending, MCHC Pending, RDW Pending, Plt Count Pending, MPV Pending 09/15/17 023: Urinalysis LIGHT H, Urine Color YEL, Urine Clarity CLEAR, Urine pH 6.0, Ur Specific [place] >= 1.030, Urine Protein TRACE H, Urine Ketones NEG, Urine Nitrite NEG, Urine Bilirubin NEG, Urine Urobilinogen 0.2, Ur Leukocyte Esterase NEG, Ur Microscopic SEDIMENT EXAMINED, Urine Bacteria RARE H, Hyaline Casts 1-3 H, Urine Hemoglobin NEG, Urine Glucose >=1000 H 09/15/17 0025: pH 7.38, pCO2 65 *H, pO2 53 L, HCO3 39 H, ABG O2 Sat (Measured) 86.0 L, P-50 (Temp Corrected) Y, Carboxyhemoglobin 2.3, O2 Concentration % 35%, Temperature 96.2 L, Respiration Rate 24, O2 Delivery Method VISION-FFM, Vent Mode ST, Expiratory Pressure 4, Inspiratory Pressure 20, Phlebotomy Draw Site RIGHT RADIAL 09/14/175: pH 7.33 L, pCO2 74 *H, pO2 122 H, HCO3 39 H, ABG O2 Sat (Measured) 96.0, P-50 (Temp Corrected) Y, Carboxyhemoglobin 2.6, O2 Concentration % 5L, Temperature 96.7 L, O2 Delivery Method NC, Phlebotomy Draw Site RIGHT RADIAL 09/14/172151: Anion Gap 1 L, Estimated GFR > 60, BUN/Creatinine Ratio 28.6 H, Glucose 281 H , Calcium 8.9, Magnesium 1.8, Total Bilirubin 0.7, AST 24, ALT 73 H, Alkaline Phosphatase 77, Troponin I 0.02, Mbl-J-Lyznizucwhm Pept 845 H, Total Protein 5.9 L, Albumin 3.4 L, Globulin 2.5, Albumin/Globulin Ratio 1.4, CBC w Diff NO MAN DIFF REQ, RBC 4.13 L, MCV 96.7 H, MCH 30.7, MCHC 31.7 L, RDW 18.0 H, MPV 7.8, Gran % 90.1 H, Lymphocytes % 5.0 L, Monocytes % 4.9, Eosinophils % 0, Basophils % 0, Absolute Granulocytes 11.1 H, Absolute Lymphocytes 0.6 L, Absolute Monocytes 0.6, Absolute Eosinophils 0, Absolute Basophils 0 Microbiology 09/15 229 URINE ROUT: Legionella Antigen - COMP 09/15 229 URINE ROUT: Streptococcus pneumoniae Antigen (M - COMP 09/15 229 UPPER RESP: Surveillance Culture - RECD 09/15 229 GI: Surveillance Culture - RECD 09/16 31 LOWER RESP: Respiratory Culture - COLB 09/16 31 LOWER RESP: Gram Stain - COLB 09/14 2332 BLOOD: Blood Culture - RECD 09/14 2330 BLOOD: Blood Culture - RECD Core Measures/Misc (10/28) Sepsis (View protocol) If YES complete Sepsis Event Note If YES complete Sepsis Event Note Attending MD Review Statement Attending Statement Attending MD Statement: examined this patient, discuss w/resident/PA/WARP DYEING VAT TENDER, agreed w/resident/PA/WARP DYEING VAT TENDER, amended to note Attending Assessment/Plan: This patient is a 72 year old male with a significant past medical history for frequent recent visits to [facility] ( admitted August 13-2017 for a flutter, observed on August 22 for disorientation/altered mental status, and seen in the ER on September 03, 2017 for altered mental status/disorientation), A. fib on Eliquis, RA on MTX, heart failure with preserved ejection fraction, hypertension, COPD on 2.5 L oxygen at home, obstructive sleep apnea on CPAP brought in from home with a chief complaint of increased lethargy and drowsiness. Patient unable to give history secondary to condition. The patient been becoming progressively worse over the last 2 days with increased lethargic and disoriented. The patient became very confused, disoriented and his oxygen dropped to 8490% on 2-1/2 L. He was brought to the ED and EMS reported that at home they found the patient to have oxygen saturation of 70%. While in the ED he was found to have hypercarbic respiratory failure with an ABG 7.33/74/122/39 96%. Place on bipap and found to have bilateral basilar opacities on CXR. Mildly hypothermic, elevated WBC 12.4 ( let shift), lactic acid pending, and BNP 845. Admit to the critical care unit, continue BiPAP, cover him for AECOPD/pneumonia (frequent hospital visits) with ceftazidime, vancomycin (MRSA PNA coverge) and azithromycin. Pulmonary consult in a.m. 40 IV Solu Medrol every 8 hours. Full code.
[2017-09-15 02:00] VITALS: BP 118/72
[2017-09-15 05:40] LABS: ABSOLUTE BASOPHIL COUNT 0 /CUMM (0.0-0.2); ABSOLUTE EOSINOPHIL COUNT 0 /CUMM (0.0-0.7); ABSOLUTE GRANULOCYTE CT 9.1 /CUMM (1.4-6.5); ABSOLUTE LYMPH COUNT 0.3 /CUMM (1.2-3.4); ABSOLUTE MONOCYTE COUNT 0 /CUMM (0.10-0.60); BASOPHIL % 0 % (0.0-2.0); EOSINOPHIL % 0 % (0-5); GRANULOCYTE % 96.1 % (42.2-75.2); HEMATOCRIT 38.9 % (42-52); MEAN CORPUSCULAR HGB 31.1 PG (27.0-31.0); MEAN CORPUSCULAR VOLUME 97.3 FL (80.0-94.0); MEAN PLATELET VOLUME 8.9 FL (7.4-10.4); PLATELET COUNT 115 /CUMM (130-400); WHITE BLOOD CELL COUNT 9.5 /CUMM (4.8-10.8)
[2017-09-15 08:00] VITALS: BP 110/60
--- NOTE | 2017-09-15 08:19 | Cons- CRCU ---
Darrian TINEO,[facility] 09/15/17 0818: General Information and HPI Consulting Request Date of Consult: 09/11/17 Requested By: Dr. Manuel Reason for Consult: Encephalopathy due to hypercarbic respiratory failure Source of Information: old records Exam Limitations: unable to give history, not alert/orientated, confusion History of Present Illness: The patient is 72-year-old gentleman with past medical history of COPD on 2-3 L of home oxygen, hypertension, diabetes mellitus, rheumatoid arthritis on methotrexate, atrial flutter/fibrillation on Eliquis, obstructive sleep apnea on CPAP, diastolic heart failure (prior hx EF 55%). Patient was confused at his house reported being not himself by his /being out of it ongoing for past 2 days. As per documentation his oxygen saturation has been lower at home ranging between 84-90% on 2.5L. He did not take any nebulizer treatments since yesterday because he was lethargic and sleeping all day. Hence EMS was called and his oxygen saturation was found to be 70% on 2 L. His admission ABGs showed 7.33/74/122. He was admitted to ICU for treatment of encephalopathy secondary to acute on chronic hypercapnic respiratory failure in setting of COPD and possible pneumonia. He was maintained on BiPAP overnight. On my evaluation the morning patient had recently came off BiPAP. He was awake however completely confused. Patient took 1 pill of oxycodone early in the morning yesterday it increased back pain. Recently his Lasix dose have been increased from 20 mg to 40 mg by his PCP. He is on chronic steroids at home. He is not able to provide much history. Continues to say that I do not know what is going on. Review of systems not obtainable. Allergies/Medications Allergies: Coded Allergies: Sulfa (Sulfonamide Antibiotics) (Intermediate, RASH/HIVES 06/06/17) Home Med List: Albuterol Sulfate 2.5 MG/3 ML (0.083 %) VIAL.NEB 1 Vial INH/TAPAN 5 TIMES A DAY COPD (Reported) Alendronate Sodium 70 MG TABLET 1 TAB PO QTHURS BONES (Reported) in the morning, at least 30 minutes before the first food, beverage, or medication of the day Allopurinol 300 MG TABLET 1 TAB PO DAILY GOUT (Reported) Apixaban (Eliquis) 5 MG TABLET 1 TAB PO BID Atrial Fibrilliation Budesonide/Formoterol Fumarate (Symbicort 160-4.5 Mcg Inhaler) 160 MCG-4.5 MCG/ ACTUATION HFA.AER.AD 2 PUF INH BID COPD (Reported) Cyanocobalamin (Vitamin B-12) (Cyanocobalamin Injection) 1,000 MCG/ML VIAL 1 ML IM Q30D SUPPLEMENT (Reported) Diltiazem HCl (Cardizem Cd) 240 MG CAP.ER.24H 240 MG PO DAILY heart . Docusate Sodium (Stool Softener) 100 MG CAPSULE 1 CAP PO BID STOOL SOFTENER ( Reported) Duloxetine HCl (Cymbalta) 60 MG CAPSULE.DR 1 CAP PO DAILY MENTAL HEALTH ( Reported) Folic Acid 1 MG TABLET 1 TAB PO BID SUPPLEMENT (Reported) Furosemide (Lasix) 20 MG TABLET 1 TAB PO DAILY Fluid Retention Insulin Glargine,Hum.rec.anlog (Lantus Solostar) 100 UNIT/ML (3 ML) INSULN.PEN 30 UNIT SC BID DIABETES (Reported) Lovastatin 40 MG TABLET 1 TAB PO QPM CHOLESTEROL (Reported) with food Methotrexate 2.5 MG TABLET 6 TAB PO QTHURS RA (Reported) Metoprolol Tartrate (Lopressor) 100 MG TABLET 1 TAB PO BID heart (Reported) Omeprazole 20 MG CAPSULE.DR 1 CAP PO BID GI (Reported) Oxycodone HCl/Acetaminophen (Oxycodone-Acetaminophen 10-325) 10 MG-325 MG TABLET 1 TAB PO 4XDP PRN PAIN (Reported) Prednisone 20 MG TABLET 1 TAB PO DAILY copd (Reported) Tamsulosin HCl 0.4 MG CAP.ER.24H 1 CAP PO QPM BPH (Reported) Review of Systems Review of Systems Constitutional: Reports: see HPI. 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 Refer elsewhere in this and other documents for additional details. According to the patient's report he was asymptomatic and functionally unrestricted by his back prior to this injury. He did have functional limitation and restriction because of his other medical conditions. Refer to other inpatient and outpatient medical records for details regarding pre-injury functional status and deficits. Surgical History Surgical History: none (jjjg) Family History Relations & Conditions If Any: MOTHER FHx: cancer Psychosocial History Where Do You Live? Home Who Do You Live With? spouse Services at Home: Nursing, Oxygen (2.5 liters) Smoking Status: Current Everyday Smoker Functional Ability Ambulation: independent, Ambulatory distance was limited by pulmonary condition and not by any spinal symptoms prior to this injury. Pre-injury functional ability is detailed in "Other Medical Hx" section. Exam & Diagnostic Data Last 24 Hrs of Vital Signs/I&O Vital Signs Date Time Temp Pulse Resp B/P B/P Pulse O2 O2 Flow FiO2 Mean Ox Delivery Rate 09/15 0855 100 100/71 09/15 0822 101 96 09/15 0800 96.3 101 19 110/60 97 BIPAP 40% / 0606 61 94 / 0417 71 92 / 0400 94 BIPAP 40% / 0247 95 BIPAP 40% / 0200 96.4 68 26 118/72 95 BIPAP 40% /05 0154 70 98 / 0101 97.3 77 24 117/61 97 BIPAP 40% / 0045 94 / 0020 78 89 09/14 2345 97.2 78 18 122/68 96 BIPAP 09/14 2245 89 95 09/14 2211 78 Nasal 5.0L Cannula 09/14 2136 91 Nasal 5.0L Cannula 09/14 2128 96.2 80 22 132/75 90 Nasal 5.0L Cannula Intake & Output 09/15 1600 09/15 0800 09/15 0000 Intake Total 250 0 Output Total 550 Balance -300 0 Intake, IV 250 Intake, Oral 0 Output, Urine 550 Patient 259 lb 280 lb Weight Weight Bed scale Reported by Patient Measurement Method Physical Exam General Appearance: awake, mild distress, obese, confused Head: atraumatic Neck: normal inspection Respiratory: decreased breath sounds, no rales, ronchi or crackels appreciated Cardiovascular: irregularly irregular, afib Last 48 Hrs of Labs/[place]: Laboratory Tests 09/15/17 0900: Lactic Acid 1.4 09/15/17 0545: Lactic Acid 1.1 09/15/17 0510: Anion Gap 4 L, Estimated GFR > 60, BUN/Creatinine Ratio 36.7 H, CBC w Diff MAN DIFF ORDERED, RBC 4.00 L, MCV 97.3 H, MCH 31.1 H, MCHC 32.0 L, RDW 18.0 H, MPV 8.9, Gran % 96.1 H, Lymphocytes % 3.4 L, Monocytes % 0.5 L, Eosinophils % 0, Basophils % 0, Absolute Granulocytes 9.1 H, Segmented Neutrophils 97 H, Absolute Lymphocytes 0.3 L, Lymphocytes 3 L, Absolute Monocytes 0 L, Absolute Eosinophils 0, Absolute Basophils 0, Platelet Estimate ADEQUATE, Polychromasia 1 +, Hypochromic-Microcytic 1+, Poikilocytosis 2+, Basophilic Stippling 1+, Ovalocytes 1+, Stomatocytes 1+, Fld Total RBCs Counted 100 09/15/17 0230: Urinalysis LIGHT H, Urine Color YEL, Urine Clarity CLEAR, Urine pH 6.0, Ur Specific [place] >= 1.030, Urine Protein TRACE H, Urine Ketones NEG, Urine Nitrite NEG, Urine Bilirubin NEG, Urine Urobilinogen 0.2, Ur Leukocyte Esterase NEG, Ur Microscopic SEDIMENT EXAMINED, Urine Bacteria RARE H, Hyaline Casts 1-3 H, Urine Hemoglobin NEG, Urine Glucose >=1000 H 09/15/17 0025: pH 7.38, pCO2 65 *H, pO2 53 L, HCO3 39 H, ABG O2 Sat (Measured) 86.0 L, P-50 (Temp Corrected) Y, Carboxyhemoglobin 2.3, O2 Concentration % 35%, Temperature 96.2 L, Respiration Rate 24, O2 Delivery Method VISION-FFM, Vent Mode ST, Expiratory Pressure 4, Inspiratory Pressure 20, Phlebotomy Draw Site RIGHT RADIAL 09/14/17 2205: pH 7.33 L, pCO2 74 *H, pO2 122 H, HCO3 39 H, ABG O2 Sat (Measured) 96.0, P-50 (Temp Corrected) Y, Carboxyhemoglobin 2.6, O2 Concentration % 5L, Temperature 96.7 L, O2 Delivery Method NC, Phlebotomy Draw Site RIGHT RADIAL 09/14/172: Anion Gap 1 L, Estimated GFR > 60, BUN/Creatinine Ratio 28.6 H, Glucose 281 H , Calcium 8.9, Magnesium 1.8, Total Bilirubin 0.7, AST 24, ALT 73 H, Alkaline Phosphatase 77, Troponin I 0.02, Wgb-V-Tmmnqnjuztk Pept 845 H, Total Protein 5.9 L, Albumin 3.4 L, Globulin 2.5, Albumin/Globulin Ratio 1.4, CBC w Diff NO MAN DIFF REQ, RBC 4.13 L, MCV 96.7 H, MCH 30.7, MCHC 31.7 L, RDW 18.0 H, MPV 7.8, Gran % 90.1 H, Lymphocytes % 5.0 L, Monocytes % 4.9, Eosinophils % 0, Basophils % 0, Absolute Granulocytes 11.1 H, Absolute Lymphocytes 0.6 L, Absolute Monocytes 0.6, Absolute Eosinophils 0, Absolute Basophils 0 Microbiology 09/15 229 URINE ROUT: Legionella Antigen - COMP 09/15 229 URINE ROUT: Streptococcus pneumoniae Antigen (M - COMP Assessment/Plan CRCU Impression/Plan: The patient is 72-year-old gentleman with past medical history of COPD on 2-3 L of home oxygen, hypertension, diabetes mellitus, rheumatoid arthritis on methotrexate, atrial flutter/fibrillation on Eliquis, obstructive sleep apnea on CPAP, diastolic heart failure (prior hx EF 55%). He was brought in by ambulance with complaint of disorientation and lethargy. He is currently being evaluated and treated for following conditions Respiratory #Acute on chronic hypoxemic hypercapnic respiratory failure Patient has history of COPD on 2-3 L and was found to have oxygen saturation of 70%. He was disoriented and lethargic on presentation and was placed on BiPAP. ABGs on admission showed 7.33/74/122. Chest x-ray was positive for Bibasilar opacification, atelectasis, aspiration, or pneumonia. And vascular congestion without overt pulmonary edema. He was maintained on BiPAP overnight started on broad coverage for hospital-acquired pneumonia with vancomycin and ceftazidime and azithromycin. Patient has frequent hospitalizations with most recent discharge on 08/16/17. -Repeat ABGs 7.38/65/86 -Patient remains confused -Will repeat anther ABG;s Continue BiPAP #Acute COPD exacerbation Patient was hypoxic and hypercapnic on admission. He is on 2-3 L of oxygen at home. Also on chronic steroids 20mg prednisone daily. -TRC -Continue IV Solu-Medrol q. 8 -Continue Symbicort (LABA and ICS) -Continue BiPAP #Hx of BOB -Continue Bipap for now Infection #Possible hospital-acquired pneumonia Chest x-ray was positive for bibasilar opacification given frequent hospitalization and recent discharge patient was started on vancomycin, ceftazidime and azithromycin for broad coverage. He had a white count on presentation and mild hypothermia. It should be noted that patient is on 20 mg prednisone home dose of steroids. So white count might be representation of that rather than infection -Monitor fever and WBC count, white count is trended down to 9.5 no bands present -Lactic acid WNL -Urine strep and Legionella negative -Will follow blood cultures and sputum culture -De-escalation of antibiotic therapy soon ? Cardiology #History of atrial flutter/fibrillation -Continue Eliquis and Cardizem #History of diastolic heart failure proBNP 845. Chest x-ray showed pulmonary congestion without overt pulmonary edema -Continue home dose of Lasix, statin and metoprolol -We will consider additional dose of Lasix if his respiratory status worsens. #History of hypertension Continue home medication (Lasix metoprolol and Cardizem) Hematology #Leukocytosis Resolved. It should be noted that patient is on 20 mg prednisone home dose of steroids. So white count might be representation of that rather than infection -Continue to monitor #Macrocytic anemia H/H stable. Elevated MCH and MCV possible etiology B12 or folate deficiency -Continue to monitor -We will check B12 and folate levels, iron, TIBC, ferritin -Of note patient is on vitamin B12 injections, vegetarian? Metabolic #Respiratory acidosis and compensatory metabolic alkalosis ABG significant for hypercapnia resulting in respiratory acidosis and elevated bicarb up to 46 on presentation represents compensatory metabolic alkalosis -Continue BiPAP #Diabetes mellitus -Fingersticks 3 times daily/at bedtime -NovoLog sliding scale -Long-acting insulin 30 units twice daily (will substitute Levemir for Lantus) Musculoskeletal #History of gout -Continue allopurinol #Hx of Rheumatoid Arthritis -Continue methotrexate and steroids #Patient takes aldronate every 70 mg, should be continued during his stay #Back pain -Hold oxycodone for now in setting of confusion Alimantary NPO for now, is more awake now can take his medications orally. Bedside swallow eval drank sip of water with no cough etc -Continue omeprazole Nephrology Creatinine baseline #BPH -Continue tamsulosin Neurology #Toxic/metabolic encephalopathy In setting of hypercapnia -Continue BiPAP DVT prophylaxis with Alps and Eliquis Full code Consult Acknowledgment - Thank you for your consult request. Sera TINEO,[facility] 09/15/17 1218: General Information and HPI Allergies/Medications Current Medications: Current Medications Sig/Lakisha Start time Last Medication Dose Route Stop Time Status Admin Albuterol Sulfate 3 ML EVERY 4 HRS/AWAKE 09/15 1200 AC 09/15 INH 1208 Albuterol Sulfate 3 ML 5 TIMES A DAY 09/15 599 DC INH Albuterol Sulfate 3 ML ONCE ONE 09/14 2144 DC 09/14 INH 09/14 2145 2154 Allopurinol 300 MG DAILY 09/15 899 AC 09/15 PO 0855 Apixaban 5 MG BID 09/15 899 AC 09/15 PO 0855 Atorvastatin Calcium 10 MG 1700 09/15 1700 AC PO Azithromycin 500 MG DAILY 09/15 899 AC 09/15 Sodium Chloride 250 ML IV 0854 Azithromycin 500 MG ONCE ONE 09/14 2300 DC 09/14 Sodium Chloride 250 ML IV 09/14 2359 2334 Budesonide/ 2 PUF BID 09/15 899 AC 09/15 Formoterol Fumarate INH 1045 Ceftazidime 1,000 MG Q12 09/15 899 AC 09/15 IV 0852 Ceftazidime 0 .STK-MED ONE 09/14 2323 DC .ROUTE Ceftazidime 1,000 MG ONCE ONE 09/14 2300 DC 09/14 IV 09/14 2301 2333 Diltiazem HCl 240 MG DAILY 09/15 899 AC 09/15 PO 0854 Duloxetine HCl 60 MG DAILY 09/15 899 AC 09/15 PO 0855 Enoxaparin Sodium 40 MG DAILY 09/15 899 CAN SC Furosemide 20 MG DAILY 09/15 899 AC 09/15 PO 0855 Furosemide 0 .STK-MED ONE 09/14 2150 DC IV Furosemide 20 MG ONCE ONE 09/14 2145 DC 09/14 IV PUSH 09/146 215 Insulin Aspart 0 TIDAC 09/16 799 AC 08/05 SC 0855 Insulin Detemir 15 UNITS BID 09/15 0140 AC 09/15 SC 0853 Insulin Human Regular 1 UNITS ONCE ONE 09/15 0330 DC 09/15 IV 09/15 0331 0338 Insulin Human Regular 0 ONCE ONE 09/15 0315 DC IV 09/15 0316 Ipratropium Prospect 2.5 ML EVERY 4 HRS/AWAKE 09/15 1200 AC 09/15 INH 1208 Ipratropium Prospect 2.5 ML ONCE ONE 09/14 2144 DC 09/14 INH 09/14 2145 215 Ketorolac 15 MG Q8P PRN 09/15 014 AC Tromethamine IV Methylprednisolone 40 MG Q8 09/15 0600 AC 09/15 IV 0541 Methylprednisolone 0 .STK-MED ONE 09/14 2149 DC .ROUTE Methylprednisolone 125 MG ONCE ONE 09/14 2144 DC 09/14 IV 09/14 Metoprolol Tartrate 100 MG BID 09/15 0900 AC 09/15 PO 0855 Omeprazole 20 MG BID 09/15 0900 AC 09/15 PO 0855 Tamsulosin HCl 0.4 MG QPM 09/15 2100 AC PO Vancomycin HCl 1,000 MG DAILY 09/15 0100 AC 09/15 Sodium Chloride 250 ML IV 0106 Assessment/Plan CRCU Other Findings/Comments: I have personally seen and examined the patient and agree with the housestaff's assessment and plan as detailed above. Briefly, the patient is a 72-year-old male who follows with Dr. Blake on a regular basis. The patient has a history significant for oxygen dependent COPD (2-3 Lpm), chronic respiratory failure, obstructive sleep apnea on CPAP, obesity hypoventilation, diastolic heart failure with a prior EF of 55%, diabetes, rheumatoid arthritis on methotrexate, atrial flutter/fibrillation on Eliquis, and morbid obesity. The patient was admitted overnight after being found confused for 2 days prior to admission. The patient's oxygen saturations were in the high 80s to low 90s despite 2.5 LPM of supplemental oxygen. The patient was lethargic and sleeping all day and not acting himself. The patient's oxygen level was taken again and his saturation was 70% on 2 L nasal cannula. EMS was called and the patient was transferred to the ED. An ABG showed a pH 7.33, PCO2 74, PO2 122, and a bicarb of 39. The patient's white blood cell count was 12.4. Lactic acid and troponin were negative. BNP was slightly elevated at 845. Chest x-ray showed bibasilar opacification with atelectasis versus aspiration or pneumonia. There is also possible pulmonary vascular congestion. The patient was placed on BiPAP with improvement in his mental status. Lactic acid was negative. Impression: 1. Acute on chronic hypoxemic and hypercapnic respiratory failure. 2. Possible pneumonia. 3. Acute exacerbation of COPD. 4. History of diasystolic heart failure. 5. History of atrial fibrillation/flutter, on Eliquis. 6. Insulin-dependent diabetes. 7. History of rheumatoid arthritis on methotrexate. Plan: * Avoid sedation. * Check a urine drug screen from admission. * Give breaks off BiPAP as tolerated. * Check an ABG today -discussed with respiratory. * Follow-up cultures. * Continue empiric antibiotic therapy -vancomycin and ceftazidime. * Nebs/total respiratory care to continue. * Continue IV Solu-Medrol 40 mg every 8 hours. * Monitor blood sugars closely and cover hyperglycemia with insulin in the setting of high-dose steroid therapy. * Monitor strict I's and O's. * Lasix of the patient's respiratory status worsens and he has evidence of volume overload. * Advance diet. Aspiration precautions. * DVT prophylaxis at all times. * Continue to monitor in the critical care unit. Plan of care discussed with housestaff. Consult Acknowledgment - Thank you for your consult request.
[2017-09-15 16:55] VITALS: BP 110/62
[2017-09-16] VITALS: BP 140/81
[2017-09-16 04:48] LABS: ABSOLUTE BASOPHIL COUNT 0 /CUMM (0.0-0.2); ABSOLUTE EOSINOPHIL COUNT 0 /CUMM (0.0-0.7); ABSOLUTE LYMPH COUNT 0.3 /CUMM (1.2-3.4); ABSOLUTE MONOCYTE COUNT 0.3 /CUMM (0.10-0.60); BASOPHIL % 0 % (0.0-2.0); EOSINOPHIL % 0 % (0-5); HEMATOCRIT 38.2 % (42-52); MEAN CORPUSCULAR HGB 30.5 PG (27.0-31.0); MEAN CORPUSCULAR HGB CONC 31.7 G/DL (33.0-37.0); MEAN CORPUSCULAR VOLUME 96.5 FL (80.0-94.0); RBC DISTRIBUTION WIDTH 17.5 % (11.5-14.5); RED BLOOD CELL CT 3.96 /CUMM (4.70-6.10); WHITE BLOOD CELL COUNT 11.6 /CUMM (4.8-10.8)
[2017-09-16 05:16] LABS: GRANULOCYTE % 94.7 % (42.2-75.2); PLATELET COUNT 129 /CUMM (130-400)
--- NOTE | 2017-09-16 07:19 | PN- Resident CRCU ---
Kristian TINEO,Tarah 09/16/17 0719: Subjective HPI/CRCU Issues: Acute on chronic hypoxemic hypercapnic respiratory failure due to COPD exacerbation Possible hospital-acquired pneumonia Diabetes mellitus History of atrial flutter/fibrillation Toxic/metabolic encephalopathy 24 Hour Events: The patient was agitated overnight, had to be started on IV Ativan drip, this morning he is very somnolent but wakes up to stimuli. His ABG improved on BiPAP. Patient was tachycardic overnight, was given IV Cardizem push but remained tachycardic, had to be started on IV Cardizem drip, in the morning his heart rate was still in the 120s and Cardizem drip was increased to 10. EKG did not show any significant STT wave changes Objective Vital Signs & I&O Last 8 Hrs of Vitals and I&O: Intake & Output 09/16 1600 Intake Total Output Total Balance Patient 259 lb Weight Weight Bed scale Measurement Method Exam General Appearance: sedated, obese Head: atraumatic Respiratory: normal breath sounds Cardiovascular: tachycardia Gastrointestinal: normal bowel sounds, soft Extremities: 2 + pitting edema bilateral Current Medications: Current Medications Sig/Lakisha Start time Last Medication Dose Route Stop Time Status Admin Albuterol Sulfate 3 ML EVERY 4 HRS/AWAKE / 1200 AC 09/16 INH 0830 Allopurinol 300 MG DAILY 09/15 09 AC 09/16 PO 0905 Apixaban 5 MG BID 09/15 09 AC 09/16 PO 0905 Atorvastatin Calcium 10 MG 1700 08/ 1700 AC 08 PO 1615 Azithromycin 500 MG DAILY 09/15 09 AC 09/16 Sodium Chloride 250 ML IV 0922 Budesonide/ 2 PUF BID 09/15 09 AC 09/16 Formoterol Fumarate INH 0905 Ceftazidime 1,000 MG Q12 09/15 0900 AC 09/16 IV 0905 Diltiazem HCl 125 MG Q12H 09/16 0500 AC 09/16 Dextrose/Water 100 ML IV 0452 Diltiazem HCl 5 MG ONCE ONE 09/16 0345 DC 09/16 IV PUSH 09/16 0346 0347 Diltiazem HCl 5 MG ONCE ONE 09/16 0315 DC 09/16 IV PUSH 09/16 0316 0308 Diltiazem HCl 240 MG DAILY 09/15 899 DC 09/15 PO 0854 Duloxetine HCl 60 MG DAILY 09/15 899 AC 09/16 PO 0905 Furosemide 20 MG DAILY 09/15 899 AC 09/16 PO 0905 Insulin Aspart 0 TIDAC 09/16 0800 AC 09/16 SC 0912 Insulin Aspart 0 TIDAC 09/15 08 DC 09/15 SC 1614 Insulin Detemir 15 UNITS BID 09/15 0140 AC 09/16 SC 0921 Ipratropium [place] 2.5 ML EVERY 4 HRS/AWAKE 09/15 1200 AC 09/16 INH 0830 Ketorolac 15 MG Q8P PRN 09/15 0145 AC Tromethamine IV Lorazepam 1 MG ONCE ONE 09/16 0315 DC 09/16 IV 09/16 0316 0316 Lorazepam 1 MG Q6PRN PRN 09/16 0245 DC 09/16 IV 0249 Lorazepam 1 MG ONCE ONE 09/16 0230 CAN IV 09/16 0231 Methylprednisolone 40 MG Q12 09/16 2100 AC IV Methylprednisolone 40 MG Q8 09/15 599 DC 09/16 IV 0644 Metoprolol Tartrate 100 MG BID 09/15 899 DC 09/15 PO 1734 Omeprazole 20 MG BID 09/15 899 AC 09/16 PO 0905 Tamsulosin HCl 0.4 MG DAILY 09/16 09 DC PO Tamsulosin HCl 0.4 MG QPM 09/15 2100 AC 09/15 PO 2157 Vancomycin HCl 1,000 MG DAILY 09/15 0100 AC 09/16 Sodium Chloride 250 ML IV 0922 Impression/Plan Impression/Problem List Impression: 72-year-old gentleman with past medical history of COPD on 2-3 L of home oxygen, hypertension, diabetes mellitus, rheumatoid arthritis on methotrexate, atrial flutter/fibrillation on Eliquis, obstructive sleep apnea on CPAP, diastolic heart failure (prior hx EF 55%). He was brought in by ambulance with complaint of disorientation and lethargy. He is currently being evaluated and treated for following conditions Respiratory #Acute on chronic hypoxemic hypercapnic respiratory failure Patient has history of COPD on 2-3 L and was found to have oxygen saturation of 70%. He was disoriented and lethargic on presentation and was placed on BiPAP. ABG this morning shows 7.47/47/78/74 which improved on BiPAP. chest x-ray was positive for Bibasilar opacification, atelectasis versus pneumonia and vascular congestion without overt pulmonary edema. He was maintained on BiPAP overnight started on broad coverage for hospital-acquired pneumonia with vancomycin and ceftazidime and azithromycin. Patient has frequent hospitalizations with most recent discharge on 08/16/17. -Patient remains confused -Will repeat anther ABG;s Continue BiPAP -CT chest showed mild centrilobular emphysema, no evidence of acute pneumonia or pulmonary edema, small pleural effusion right more than left #Acute COPD exacerbation Patient was hypoxic and hypercapnic on admission. He is on 2-3 L of oxygen at home. Also on chronic steroids 20mg prednisone daily. -TRC -Decrease IV Solu-Medrol to every 12 -Continue Symbicort (LABA and ICS) -Continue BiPAP #Hx of BOB -Continue Bipap for now Infection #Possible hospital-acquired pneumonia On admission chest x-ray was positive for bibasilar opacification given frequent hospitalization and recent discharge patient was started on vancomycin, ceftazidime and azithromycin for broad coverage. He had a white count on presentation and mild hypothermia. It should be noted that patient is on 20 mg prednisone home dose of steroids. So white count might be representation of that rather than infection -Patient was afebrile ,monitor fever and WBC count, white count is trended down to 9.5 initially but this morning it increased to 11.6 which can be possibly due to steroids. no bands present -Lactic acid WNL -Urine strep and Legionella negative Renal function was positive for VRE -Will follow blood cultures and sputum culture -DC Vanco and ceftaz Continue azithromycin Cardiology #History of atrial flutter/fibrillation -Continue Eliquis and Cardizem Patient heart rate was in the 120s, had to be started on Cardizem drip, currently on 10 Cardiology consult appreciated #History of diastolic heart failure proBNP 845. Chest x-ray showed pulmonary congestion without overt pulmonary edema -Continue home dose of Lasix, statin and metoprolol -We will consider additional dose of Lasix if his respiratory status worsens. #History of hypertension Continue home medication (Lasix metoprolol and Cardizem) Hematology #Leukocytosis WBC this a.m. is 11.6. It should be noted that patient is on 20 mg prednisone home dose of steroids currently on IV Solu-Medrol which can be the cause of his leukocytosis. -Continue to monitor #Macrocytic anemia H/H stable. Elevated MCH and MCV possible etiology B12 or folate deficiency -Continue to monitor -We will check B12 and folate levels, iron, TIBC, ferritin -Of note patient is on vitamin B12 injections, vegetarian? Metabolic #Respiratory acidosis and compensatory metabolic alkalosis Improving ABG significant for hypercapnia resulting in respiratory acidosis and elevated bicarb up to 46 on presentation represents compensatory metabolic alkalosis -Continue BiPAP #Diabetes mellitus Blood sugar poorly controlled -Fingersticks 3 times daily/at bedtime -Start sliding scale high-dose -Long-acting insulin 30 units twice daily (will substitute Levemir for Lantus) Musculoskeletal #History of gout -Continue allopurinol #Hx of Rheumatoid Arthritis -Continue methotrexate and steroids #Patient takes aldronate every 70 mg, should be continued during his stay #Back pain -Hold oxycodone for now in setting of confusion Alimantary NPO for now, is more awake now can take his medications orally. Bedside swallow eval drank sip of water with no cough etc -Continue omeprazole Nephrology Creatinine baseline #BPH -Continue tamsulosin Neurology #Toxic/metabolic encephalopathy Improving after his ABG improved on the BiPAP and after discontinuing the Ativan drip CT head did not show any acute lesions -Continue BiPAP DVT prophylaxis with Alps and Eliquis Full code Problem List: 1. Leukocytosis 2. Hyperglycemia 3. COPD with acute exacerbation 4. Acute on chronic respiratory failure with hypercapnia Pain Ratin Tomorrow's Labs & Rationales: CBC ICU bundle ABG Plan DVT/Prophylaxis: mechanical, pharmacological Sebastian Blake MD 09/16/17 0956: Attending MD Review Statement Attending Sign Off Attending Cosign Statement: I have: examined this patient, reviewed avalbl EMR data, personally reviewd images, discussd w/resident/PA/PC TECH, discussed mgmt plan w/dante, discussed mgmt plan w/CM, discussed mgmt plan w/pt, agreed w/resident/PA/PC TECH, amended to note. Other Findings: Sebastian Felipe M.D. have examined this patient, reviewed available EMR data, personally reviewed images, discussed with resident/PA/PC TECH, discussed management plan with housestaff and nursing staff, discussed managment plan all of healthcare providers, discussed management plan with patient and/or family, agreed with resident/PA/PC TECH. The past history and parts of the chart have been autopopulated. Impression 72 year old man * acute on chronic hypoxemic and hypercarbic respiratory failure * Acute exacerbation of COPD - concern for possible pneumonia - treated for health care associated pathogens empirically at this time * somnolence - confusion * a.fib/flutter - on Eliquis * DM - Insulin dependent * RA - chronic pain Plan Respiratory -nocturnal NIV -ABG improved -maintain spo2 >92% -aspiration precautions -TRC/Nebs ID -on vancomycin/ceftazadime/azithromycin empirically -check sputum cx -check CT chest (being done with CT Head) [facility] -currently on Eliquis - awaiting CT Head -hemodynamic monitoring - currently on cardizem -continue lasix Heme -CBC monitoring -check coags Metabolic -ins/outs -continue lasix Alimentary -NPO given somnolence Neuro -check CT head -hold ativan DVT prophylaxis at all times (On Eliquis) Full Code TTS 40 minutes Patent is critically ill and requires ICU stay
[2017-09-16 08:00] VITALS: BP 120/80
--- NOTE | 2017-09-16 12:05 | Cons- Cardiology ---
General Information and HPI Consulting Request Date of Consult: 09/16/17 Requested By: Sera TINEO,Ian Benites Reason for Consult: respiratory failure History of Present Illness: the patient is a 72-year-old male with history of COPD, atrial flutter, diastolic heart failure who Presented with hypoxia. He was found by his to be confused over the past 2 days. His oxygen saturation was noted to be between 84 and 90% on 2.5 liters of oxygen. He presented to the emergency department where he was found to have evidence of encephalopathy secondary to acute on chronic hypercapnic respiratory failure in the setting of COPD and possible pneumonia. No chest pain. No diaphoresis. No syncope. No palpitations. No orthopnea. Allergies/Medications Allergies: Coded Allergies: Sulfa (Sulfonamide Antibiotics) (Intermediate, RASH/HIVES 06/06/17) Home Med List: Albuterol Sulfate 2.5 MG/3 ML (0.083 %) VIAL.NEB 1 Vial INH/TAPAN 5 TIMES A DAY COPD (Reported) Alendronate Sodium 70 MG TABLET 1 TAB PO QTHURS BONES (Reported) in the morning, at least 30 minutes before the first food, beverage, or medication of the day Allopurinol 300 MG TABLET 1 TAB PO DAILY GOUT (Reported) Apixaban (Eliquis) 5 MG TABLET 1 TAB PO BID Atrial Fibrilliation Budesonide/Formoterol Fumarate (Symbicort 160-4.5 Mcg Inhaler) 160 MCG-4.5 MCG/ ACTUATION HFA.AER.AD 2 PUF INH BID COPD (Reported) Cyanocobalamin (Vitamin B-12) (Cyanocobalamin Injection) 1,000 MCG/ML VIAL 1 ML IM Q30D SUPPLEMENT (Reported) Diltiazem HCl (Cardizem Cd) 240 MG CAP.ER.24H 240 MG PO DAILY heart . Docusate Sodium (Stool Softener) 100 MG CAPSULE 1 CAP PO BID STOOL SOFTENER ( Reported) Duloxetine HCl (Cymbalta) 60 MG CAPSULE.DR 1 CAP PO DAILY MENTAL HEALTH ( Reported) Folic Acid 1 MG TABLET 1 TAB PO BID SUPPLEMENT (Reported) Furosemide (Lasix) 20 MG TABLET 1 TAB PO DAILY Fluid Retention Insulin Glargine,Hum.rec.anlog (Lantus Solostar) 100 UNIT/ML (3 ML) INSULN.PEN 30 UNIT SC BID DIABETES (Reported) Lovastatin 40 MG TABLET 1 TAB PO QPM CHOLESTEROL (Reported) with food Methotrexate 2.5 MG TABLET 6 TAB PO QTHURS RA (Reported) Metoprolol Tartrate (Lopressor) 100 MG TABLET 1 TAB PO BID heart (Reported) Omeprazole 20 MG CAPSULE.DR 1 CAP PO BID GI (Reported) Oxycodone HCl/Acetaminophen (Oxycodone-Acetaminophen 10-325) 10 MG-325 MG TABLET 1 TAB PO 4XDP PRN PAIN (Reported) Prednisone 20 MG TABLET 1 TAB PO DAILY copd (Reported) Tamsulosin HCl 0.4 MG CAP.ER.24H 1 CAP PO QPM BPH (Reported) Current Medications: Current Medications Sig/Lakisha Start time Last Medication Dose Route Stop Time Status Admin Albuterol Sulfate 3 ML EVERY 4 HRS/AWAKE 09/15 1200 AC 09/16 INH 1620 Allopurinol 300 MG DAILY 09/15 899 AC 09/16 PO 0905 Apixaban 5 MG BID 09/15 899 AC 09/16 PO 0905 Atorvastatin Calcium 10 MG 1700 09/15 1700 AC 09/16 PO 1649 Azithromycin 500 MG DAILY 09/15 899 AC 09/16 Sodium Chloride 250 ML IV 0922 Budesonide/ 2 PUF BID 09/15 09 AC 09/16 Formoterol Fumarate INH 0905 Ceftazidime 1,000 MG Q12 09/15 09 DC 09/16 IV 0905 Diltiazem HCl 125 MG Q12H 09/16 0500 AC 09/16 Dextrose/Water 100 ML IV 1649 Diltiazem HCl 5 MG ONCE ONE 09/16 0345 DC 09/16 IV PUSH 09/16 0346 0347 Diltiazem HCl 5 MG ONCE ONE 09/16 0315 DC 09/16 IV PUSH 09/16 0316 0308 Diltiazem HCl 240 MG DAILY 09/15 899 DC 09/15 PO 0854 Duloxetine HCl 60 MG DAILY 09/15 899 AC 09/16 PO 0905 Furosemide 20 MG DAILY 09/15 899 AC 09/16 PO 0905 Insulin Aspart 0 TIDAC 09/16 0800 AC 09/16 SC 1649 Insulin Aspart 0 TIDAC 09/15 0800 DC 09/15 SC 1614 Insulin Detemir 15 UNITS BID 09/15 0140 AC 09/16 SC 0921 Ipratropium [place] 2.5 ML EVERY 4 HRS/AWAKE 09/15 1200 AC 09/16 INH 1620 Ketorolac 15 MG Q8P PRN 09/15 0145 AC Tromethamine IV Lorazepam 1 MG ONCE ONE 09/16 0315 DC 09/16 IV 09/16 0316 0316 Lorazepam 1 MG Q6PRN PRN 09/16 0245 DC 09/16 IV 0249 Lorazepam 1 MG ONCE ONE 09/16 0230 CAN IV 09/16 0231 Methylprednisolone 40 MG Q12 09/16 2100 AC IV Methylprednisolone 40 MG Q8 09/15 0600 DC 09/16 IV 0644 Metoprolol Tartrate 100 MG BID 09/15 899 DC 09/15 PO 1734 Omeprazole 20 MG BID 09/15 899 AC 09/16 PO 0905 Tamsulosin HCl 0.4 MG DAILY 09/16 899 DC PO Tamsulosin HCl 0.4 MG QPM 09/15 2100 AC 09/15 PO 2157 Vancomycin HCl 1,000 MG DAILY 09/15 0100 DC 09/16 Sodium Chloride 250 ML IV 0922 Review of Systems Review of Systems: No hemoptysis. No hematemesis. No chills. All other systems are reviewed and are noted to be negative. 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 Refer elsewhere in this and other documents for additional details. According to the patient's report he was asymptomatic and functionally unrestricted by his back prior to this injury. He did have functional limitation and restriction because of his other medical conditions. Refer to other inpatient and outpatient medical records for details regarding pre-injury functional status and deficits. Surgical History Surgical History: none (jjjg) Family History Relations & Conditions If Any: MOTHER FHx: cancer Psychosocial History Where Do You Live? Home Who Do You Live With? spouse Services at Home: Nursing, Oxygen (2.5 liters) Smoking Status: Current Everyday Smoker Functional Ability Ambulation: independent, Ambulatory distance was limited by pulmonary condition and not by any spinal symptoms prior to this injury. Pre-injury functional ability is detailed in "Other Medical Hx" section. Exam & Diagnostic Data Vital Signs and I&O Vital Signs Date Time Temp Pulse Resp B/P B/P Pulse O2 O2 Flow FiO2 Mean Ox Delivery Rate 09/16 1623 93 Nasal 5.0L Cannula 09/16 1600 Nasal 4.0L Cannula 09/16 1600 97.7 104 27 112/72 92 Nasal 4.0L Cannula 09/16 1229 95 Nasal 4.0L Cannula 09/16 1200 92 Nasal 4.0L Cannula 09/16 0943 Nasal 3.0L Cannula 09/16 0936 Nasal 3.0L Cannula 09/16 0921 101 96/73 09/16 0837 95 Nasal 3.0L Cannula 09/16 0830 120 95 / 0800 97.9 119 20 120/80 95 BIPAP 40% 09/16 0800 95 BIPAP 40% 09/16 0607 122 95 /06 0400 97 BIPAP 40% / 0347 122 150/86 08/06 0308 123 122/72 08/06 0240 120 98 08/06 0041 122 95 08/06 0000 95 BIPAP 40% / 0000 97.4 122 27 140/81 95 BIPAP 40% /05 2305 124 95 08/05 2157 122 107/59 08/05 2000 92 Nasal 4.0L Cannula Intake & Output 09/16 1600 /06 0800 08/06 0000 / 1600 08/ 0800 08/05 0000 Intake Total 910 14 840 970 250 0 Output Total 800 0 380 550 Balance 110 14 840 590 -300 0 Intake, IV 610 14 0 250 250 Intake, Oral 300 0 840 720 0 Number 0 0 0 0 Bowel Movements Output, Urine 800 0 380 550 Patient 259 lb 259 lb 280 lb Weight Weight Bed scale Bed scale Reported by Patient Measurement Method Physical Exam: Gen: The patient is in no acute distress HEENT: Normal nose, ears, and oropharynx. Pupils equal bilaterally. Conjunctiva normal. Neck: Supple with no JVD, no masses, and no thyromegaly Lungs: Decreased breath sounds with normal respiratory effort Heart: S1, S2, 1/6 systolic mumrmur. 2+ peripheral edema, 2+ pulses in the lower extremities bilaterally Abdomen: Soft, nontender, no masses. No hepatomegaly. No splenomegaly Extremities: No clubbing or cyanosis. Normal muscle strength in the upper and lower extremities. Skin: Normal skin turgor with no skin ulcers or lesions noted. Neuro: Cranial nerves intact. Sensation intact Psych: Alert and oriented 3 with appropriate affect Labs/Kiel Results: Laboratory Tests 09/16 09/16 1044 0545 Blood Gas pH (7.35 - 7.45 PH) 7.47 H pCO2 (35 - 45 TORR) 47 H pO2 (80 - 100 TORR) 78 L HCO3 (21 - 28 MEQ/L) 34 H ABG O2 Sat (Measured) (>96.0 %) 96.0 P-50 (Temp Corrected) N Carboxyhemoglobin (1.5 - 5.0 %) 0.6 L O2 Concentration % .40 Respiration Rate (BPM) 24 O2 Delivery Method BIPAP Vent Mode ST Expiratory Pressure (CM H2O P) 4 Inspiratory Pressure (CM H2O P) 20 Chemistry Ammonia (9 - 30 umol/L) < 9 L Coagulation PT (9.4 - 12.5 SEC) 19.0 H INR (0.90 - 1.17) 1.73 H Miscellaneous Phlebotomy Draw Site RIGHT RADIAL 09/16 09/15 0420 1205 Blood Gas pH (7.35 - 7.45 PH) 7.45 pCO2 (35 - 45 TORR) 57 H pO2 (80 - 100 TORR) 63 L HCO3 (21 - 28 MEQ/L) 39 H ABG O2 Sat (Measured) (>96.0 %) 92.0 L P-50 (Temp Corrected) N Carboxyhemoglobin (1.5 - 5.0 %) 1.9 O2 Concentration % 4LPM O2 Delivery Method NC Chemistry Sodium (137 - 145 mmol/L) 138 Potassium (3.5 - 5.1 mmol/L) 4.1 Chloride (98 - 107 mmol/L) 94 L Carbon Dioxide (22 - 30 mmol/L) 37 H Anion Gap (5 - 16) 7 BUN (9 - 20 mg/dL) 30 H Creatinine (0.7 - 1.2 mg/dL) 0.8 Estimated GFR (>60 ml/min) > 60 Glucose (65 - 99 mg/dL) 260 H Calcium (8.4 - 10.2 mg/dL) 9.1 Phosphorus (2.5 - 4.5 mg/dL) 3.0 Magnesium (1.6 - 2.3 mg/dL) 1.9 Total Bilirubin (0.2 - 1.3 mg/dL) 0.7 AST (17 - 59 U/L) 20 ALT (21 - 72 U/L) 63 Albumin (3.5 - 5.0 g/dL) 3.2 L Hematology CBC w Diff NO MAN DIFF REQ WBC (4.8 - 10.8 /CUMM) 11.6 H RBC (4.70 - 6.10 /CUMM) 3.96 L Hgb (14.0 - 18.0 G/DL) 12.1 L Hct (42 - 52 %) 38.2 L MCV (80.0 - 94.0 FL) 96.5 H MCH (27.0 - 31.0 PG) 30.5 MCHC (33.0 - 37.0 G/DL) 31.7 L RDW (11.5 - 14.5 %) 17.5 H Plt Count (130 - 400 /CUMM) 129 L MPV (7.4 - 10.4 FL) 9.0 Gran % (42.2 - 75.2 %) 94.7 H Lymphocytes % (20.5 - 51.1 %) 2.7 L Monocytes % (1.7 - 9.3 %) 2.6 Eosinophils % (0 - 5 %) 0 Basophils % (0.0 - 2.0 %) 0 Absolute Granulocytes (1.4 - 6.5 /CUMM) 11.0 H Absolute Lymphocytes (1.2 - 3.4 /CUMM) 0.3 L Absolute Monocytes (0.10 - 0.60 /CUMM) 0.3 Absolute Eosinophils (0.0 - 0.7 /CUMM) 0 Absolute Basophils (0.0 - 0.2 /CUMM) 0 Miscellaneous Phlebotomy Draw Site RIGHT BRACHIAL 09/15 09/15 09/15 0900 0545 0510 Chemistry Sodium (137 - 145 mmol/L) 139 Potassium (3.5 - 5.1 mmol/L) 4.7 Chloride (98 - 107 mmol/L) 97 L Carbon Dioxide (22 - 30 mmol/L) 38 H Anion Gap (5 - 16) 4 L BUN (9 - 20 mg/dL) 22 H Creatinine (0.7 - 1.2 mg/dL) 0.6 L Estimated GFR (>60 ml/min) > 60 BUN/Creatinine Ratio (7 - 25 %) 36.7 H Lactic Acid (0.7 - 2.1 mmol/L) 1.4 1.1 Iron (49 - 181 ug/dL) 49 TIBC (261 - 462 ug/dL) 318 Ferritin (17.9 - 464 ng/mL) 66.7 Vitamin B12 (239 - 931 pg/mL) 805 Folate (2.76 - 20.0 ng/mL) > 20.0 H Hematology CBC w Diff MAN DIFF ORDERED WBC (4.8 - 10.8 /CUMM) 9.5 RBC (4.70 - 6.10 /CUMM) 4.00 L Hgb (14.0 - 18.0 G/DL) 12.4 L Hct (42 - 52 %) 38.9 L MCV (80.0 - 94.0 FL) 97.3 H MCH (27.0 - 31.0 PG) 31.1 H MCHC (33.0 - 37.0 G/DL) 32.0 L RDW (11.5 - 14.5 %) 18.0 H Plt Count (130 - 400 /CUMM) 115 L MPV (7.4 - 10.4 FL) 8.9 Gran % (42.2 - 75.2 %) 96.1 H Lymphocytes % (20.5 - 51.1 %) 3.4 L Monocytes % (1.7 - 9.3 %) 0.5 L Eosinophils % (0 - 5 %) 0 Basophils % (0.0 - 2.0 %) 0 Absolute Granulocytes (1.4 - 6.5 /CUMM) 9.1 H Segmented Neutrophils (42.2 - 75.2 %) 97 H Absolute Lymphocytes (1.2 - 3.4 /CUMM) 0.3 L Lymphocytes (20.5 - 51.1 %) 3 L Absolute Monocytes (0.10 - 0.60 /CUMM) 0 L Absolute Eosinophils (0.0 - 0.7 /CUMM) 0 Absolute Basophils (0.0 - 0.2 /CUMM) 0 Platelet Estimate (ADEQUATE) ADEQUATE Polychromasia 1+ Hypochromic-Microcytic 1+ Poikilocytosis 2+ Basophilic Stippling 1+ Ovalocytes 1+ Stomatocytes 1+ Other Body Source [place] Total RBCs Counted (%) 100 09/15 09/15 0230 0025 Blood Gas pH (7.35 - 7.45 PH) 7.38 pCO2 (35 - 45 TORR) 65 *H pO2 (80 - 100 TORR) 53 L HCO3 (21 - 28 MEQ/L) 39 H ABG O2 Sat (Measured) (>96.0 %) 86.0 L P-50 (Temp Corrected) Y Carboxyhemoglobin (1.5 - 5.0 %) 2.3 O2 Concentration % 35% Temperature (97.0 - 100.0 FARH) 96.2 L Respiration Rate (BPM) 24 O2 Delivery Method VISION-FFM Vent Mode ST Expiratory Pressure (CM H2O P) 4 Inspiratory Pressure (CM H2O P) 20 Miscellaneous Phlebotomy Draw Site RIGHT RADIAL Toxicology Urine Opiates Screen (>2000 NG/ML) 263 Methadone Screen (>300 NG/ML) 83 Barbiturate Screen (>200 NG/ML) < 60 Ur Phencyclidine Scrn (>25 NG/ML) < 6.00 Amphetamines Screen (>1000 NG/ML) < 100 U Benzodiazepines Scrn (>200 NG/ML) < 85 Urine Cocaine Screen (>300 NG/ML) < 50 Urine Cannabis Screen (>50 NG/ML) < 5.00 Urines Urinalysis LIGHT H Urine Color (YEL,AMB,STR) YEL Urine Clarity (CLEAR) CLEAR Urine pH (5.0 - 8.0) 6.0 Ur Specific [place] (1.001 - 1.035) >= 1.030 Urine Protein (NEG,<30 MG/DL) TRACE H Urine Ketones (NEG) NEG Urine Nitrite (NEG) NEG Urine Bilirubin (NEG) NEG Urine Urobilinogen (0.1 - 1.0 EU/dl) 0.2 Ur Leukocyte Esterase (NEG) NEG Ur Microscopic SEDIMENT EXAMINED Urine Bacteria (NEG/NONE) RARE H Hyaline Casts (0/LPF) 1-3 H Urine Hemoglobin (NEG) NEG Urine Glucose (N MG/DL) >=1000 H 09/14 09/14 2205 2152 Blood Gas pH (7.35 - 7.45 PH) 7.33 L pCO2 (35 - 45 TORR) 74 *H pO2 (80 - 100 TORR) 122 H HCO3 (21 - 28 MEQ/L) 39 H ABG O2 Sat (Measured) (>96.0 %) 96.0 P-50 (Temp Corrected) Y Carboxyhemoglobin (1.5 - 5.0 %) 2.6 O2 Concentration % 5L Temperature (97.0 - 100.0 FARH) 96.7 L O2 Delivery Method NC Chemistry Sodium (137 - 145 mmol/L) 139 Potassium (3.5 - 5.1 mmol/L) 4.4 Chloride (98 - 107 mmol/L) 92 L Carbon Dioxide (22 - 30 mmol/L) 46 H Anion Gap (5 - 16) 1 L BUN (9 - 20 mg/dL) 20 Creatinine (0.7 - 1.2 mg/dL) 0.7 Estimated GFR (>60 ml/min) > 60 BUN/Creatinine Ratio (7 - 25 %) 28.6 H Glucose (65 - 99 mg/dL) 281 H Calcium (8.4 - 10.2 mg/dL) 8.9 Magnesium (1.6 - 2.3 mg/dL) 1.8 Total Bilirubin (0.2 - 1.3 mg/dL) 0.7 AST (17 - 59 U/L) 24 ALT (21 - 72 U/L) 73 H Alkaline Phosphatase (< 127 U/L) 77 Troponin I (<0.11 ng/ml) 0.02 Any-P-Rajhymobiju Pept (<125 pg/mL) 845 H Total Protein (6.3 - 8.2 g/dL) 5.9 L Albumin (3.5 - 5.0 g/dL) 3.4 L Globulin (1.9 - 4.2 gm/dL) 2.5 Albumin/Globulin Ratio (1.1 - 2.2 %) 1.4 Hematology CBC w Diff NO MAN DIFF REQ WBC (4.8 - 10.8 /CUMM) 12.4 H RBC (4.70 - 6.10 /CUMM) 4.13 L Hgb (14.0 - 18.0 G/DL) 12.6 L Hct (42 - 52 %) 39.9 L MCV (80.0 - 94.0 FL) 96.7 H MCH (27.0 - 31.0 PG) 30.7 MCHC (33.0 - 37.0 G/DL) 31.7 L RDW (11.5 - 14.5 %) 18.0 H Plt Count (130 - 400 /CUMM) 147 MPV (7.4 - 10.4 FL) 7.8 Gran % (42.2 - 75.2 %) 90.1 H Lymphocytes % (20.5 - 51.1 %) 5.0 L Monocytes % (1.7 - 9.3 %) 4.9 Eosinophils % (0 - 5 %) 0 Basophils % (0.0 - 2.0 %) 0 Absolute Granulocytes (1.4 - 6.5 /CUMM) 11.1 H Absolute Lymphocytes (1.2 - 3.4 /CUMM) 0.6 L Absolute Monocytes (0.10 - 0.60 /CUMM) 0.6 Absolute Eosinophils (0.0 - 0.7 /CUMM) 0 Absolute Basophils (0.0 - 0.2 /CUMM) 0 Miscellaneous Phlebotomy Draw Site RIGHT RADIAL Diagnostic Data EKG Results EKG tracing is reviewed, and reveals atrial flutter with right bundle-branch block Other Results CT scan of the chest: 1. Mild centrilobular emphysema. 2. No evidence of acute pneumonia or pulmonary edema. 3. Small pleural effusions (right larger than left). Again noted is atelectasis in dependent aspect of right upper and right lower lobe. The small left pleural effusion has increased compared to 09/03/2017 and produces compressive atelectasis in the left lower lobe. chest x-ray: 1. Bibasilar opacification, consider atelectasis, aspiration, or pneumonia. 2. Nonspecific bronchovascular prominence could reflect sequela of vascular congestion. No convincing overt pulmonary edema. Assessment/Plan Assessment/Plan The patient is a 72-year-old male with history of COPD, atrial flutter, and chronic diastolic heart failure who presents with hypoxia secondary to COPD exacerbation and possible pneumonia. He remains in atrial flutter with rate under control. He does not appear to be in significant acute heart failure. Plan: * Continue anticoagulation with Eliquis * Continue cardiac medications * Continueantibiotic therapy * Continue p.o. Lasix for now, could consider IV Lasix if needed for acute heart failure * IV diltiazem for rate control. Target heart rate less than 110 Consult Acknowledgment - Thank you for your consult request.
--- NOTE | 2017-09-16 12:08 | CT SCAN REPORT ---
EXAMINATION: CT HEAD WITHOUT CONTRAST CLINICAL INFORMATION: Confusion. Lethargy. On Eliquis. COMPARISON: CT head 09/03/2017. TECHNIQUE: Contiguous axial imaging was performed from the skull base to vertex without intravenous administration of contrast. DLP: 1019.51 mGy-cm FINDINGS: There is no acute intracranial hemorrhage or abnormal extra-axial collection. No intracranial mass effect or midline shift. Lateral and third ventricles are normal. No hydrocephalus. Ill-defined foci of hypoattenuation are visualized within the periventricular white matter. Gregory-white matter differentiation is grossly preserved and there is no evidence of acute territorial infarct. The calvarium and skull base are intact. Mastoid air cells and middle ear cavities are well aerated. A mucous retention cyst nearly completely opacifies the right maxillary sinus. The remainder of the visualized sinuses are well aerated. Globes and orbits are symmetric. IMPRESSION: There are a few scattered chronic small vessel ischemic changes within the periventricular white matter. No evidence of acute territorial infarct or hemorrhage.
--- NOTE | 2017-09-16 12:29 | CT SCAN REPORT ---
EXAMINATION: CT CHEST WITHOUT CONTRAST CLINICAL INFORMATION: Altered mental status. Acute hypoxic respiratory failure. Possible pneumonia. COMPARISON: Chest CT from 08/23/2017 and 09/03/2017. TECHNIQUE: Multidetector volumetric CT imaging of the chest was done. Axial MIP volume rendering provided. Sagittal and coronal reformatted images were obtained. DLP: 662 mGy-cm FINDINGS: LUNGS AND PLEURA: Mild centrilobular emphysema. Again noted is bronchial wall thickening in both lungs. Small pleural effusions are present. The right pleural effusion is unchanged compared to 09/03/2017. Associated atelectasis in dependent aspect of right upper lobe and right lower lobe. Small left pleural effusion has increased compared to 09/03/2017 and produces compressive atelectasis in the left lower lobe. Again noted are old, stable nodules within the left lung, including a 0.4 cm solid, noncalcified nodule of the left upper lobe (image 183, series 4). No new nodules. No acute pulmonary findings compared to 09/03/2017. MEDIASTINUM: Atherosclerotic disease of coronary arteries and thoracic aorta without aortic aneurysm. No pericardial effusion. The esophagus has normal wall thickness. No mediastinal mass. LYMPHATICS: No pathologic sized axillary, hilar or mediastinal lymph nodes. UPPER ABDOMEN: No acute findings in the examined solid or hollow viscera of the upper abdomen. Again noted is a small calcified granuloma of the right adrenal gland. SKELETAL AND CHEST WALL: No aggressive osseous lesions. Several old, healed rib fractures. No acute findings in the degenerated spine. Symmetric appearance of bilateral gynecomastia. IMPRESSION: 1. Mild centrilobular emphysema. 2. No evidence of acute pneumonia or pulmonary edema. 3. Small pleural effusions (right larger than left). Again noted is atelectasis in dependent aspect of right upper and right lower lobe. The small left pleural effusion has increased compared to 09/03/2017 and produces compressive atelectasis in the left lower lobe.
[2017-09-16 16:00] VITALS: BP 112/72
[2017-09-17] VITALS: BP 112/66
[2017-09-17 05:13] LABS: ABSOLUTE BASOPHIL COUNT 0 /CUMM (0.0-0.2); ABSOLUTE EOSINOPHIL COUNT 0 /CUMM (0.0-0.7); ABSOLUTE GRANULOCYTE CT 8.8 /CUMM (1.4-6.5); ABSOLUTE LYMPH COUNT 0.3 /CUMM (1.2-3.4); ABSOLUTE MONOCYTE COUNT 0.2 /CUMM (0.10-0.60); BASOPHIL % 0 % (0.0-2.0); EOSINOPHIL % 0 % (0-5); GRANULOCYTE % 94.4 % (42.2-75.2); HEMATOCRIT 36.4 % (42-52); MEAN CORPUSCULAR HGB 30.9 PG (27.0-31.0); MEAN CORPUSCULAR HGB CONC 32.5 G/DL (33.0-37.0); MEAN CORPUSCULAR VOLUME 95.3 FL (80.0-94.0); MEAN PLATELET VOLUME 8.8 FL (7.4-10.4); PLATELET COUNT 120 /CUMM (130-400); RBC DISTRIBUTION WIDTH 18.1 % (11.5-14.5); RED BLOOD CELL CT 3.82 /CUMM (4.70-6.10); WHITE BLOOD CELL COUNT 9.4 /CUMM (4.8-10.8)
--- NOTE | 2017-09-17 07:13 | PN- Resident CRCU ---
Jade TINEO,Bijal 09/17/17 0713: Objective Vital Signs & I&O Last 8 Hrs of Vitals and I&O: Intake & Output 09/17 0800 Intake Total 141 Output Total 600 Balance -459 Intake, IV 81 Intake, Oral 60 Output, Urine 600 Impression/Plan Plan DVT/Prophylaxis: mechanical, pharmacological Sebastian Blake MD 09/17/17 0906: Attending MD Review Statement Attending Sign Off Attending Cosign Statement: I have: examined this patient, reviewed avalbl EMR data, personally reviewd images, discussd w/resident/PA/[place], discussed mgmt plan w/dante, discussed mgmt plan w/CM, discussed mgmt plan w/pt, agreed w/resident/PA/[place], amended to note. Other Findings: I, Sebastian Blake M.D. have examined this patient, reviewed available EMR data, personally reviewed images, discussed with resident/PA/[place], discussed management plan with housestaff and nursing staff, discussed managment plan all of healthcare providers, discussed management plan with patient and/or family, agreed with resident/PA/[place]. The past history and parts of the chart have been autopopulated. Impression 72 year old man * acute on chronic hypoxemic and hypercarbic respiratory failure * Acute exacerbation of COPD * resolved confusion * a.fib/flutter - on Eliquis * DM - Insulin dependent * RA - chronic pain Plan Respiratory -nocturnal NIV if pt agreeable -maintain spo2 >92% -aspiration precautions -TRC/Nebs ID -dc abx with the exception of zithromax - no evidence of pneumonia -f/u sputum cx CVS -currently on Eliquis -hemodynamic monitoring - currently on cardizem -continue lasix Heme -CBC monitoring -check coags Metabolic -ins/outs -continue lasix Alimentary -diet Neuro -hold sedatives DVT prophylaxis at all times (On Eliquis) Full Code TTS 45 minutes Patent is critically ill and requires ICU stay Discussed care of patient with his in his presence over the phone Of note - if patient requires any urethral catheterization this is to be done only with urology per patient request Kristian TINEO,Tarah 09/17/17 1552: Subjective HPI/CRCU Issues: Acute on chronic hypoxemic hypercapnic respiratory failure due to COPD exacerbation Possible hospital-acquired pneumonia Diabetes mellitus History of atrial flutter/fibrillation Toxic/metabolic encephalopathy 24 Hour Events: Patient is more alert and awake, vital signs stable, ABG improved 7.49/39 64/29, no overnight events, still tachycardic in the range of [id number], currently on Cardizem drip 10 milligrams will increase to 15 Ml/hr Objective Vital Signs & I&O Last 8 Hrs of Vitals and I&O: Intake & Output 09/17 1600 Intake Total 1187.6 Output Total 200 Balance 987.6 Intake, IV 347.6 Intake, Oral 840 Number 1 Bowel Movements Output, Urine 200 Patient 258 lb Weight Exam General Appearance: alert, awake Head: atraumatic, normal appearance Respiratory: normal breath sounds Cardiovascular: regular rate/rhythm, tachycardia Gastrointestinal: normal bowel sounds, soft Extremities: 2 + pitting edema Skin: intact Current Medications: Current Medications Sig/Lakisha Start time Last Medication Dose Route Stop Time Status Admin Albuterol Sulfate 3 ML EVERY 4 HRS/AWAKE 09/15 1200 AC 09/17 INH 1342 Allopurinol 300 MG DAILY 09/15 899 AC 09/17 PO 0937 Apixaban 5 MG BID 09/15 899 AC 09/17 PO 0937 Atorvastatin Calcium 10 MG 1700 09/15 1700 AC 09/16 PO 1649 Azithromycin 500 MG DAILY 09/15 899 AC 09/17 Sodium Chloride 250 ML IV 0938 Budesonide/ 2 PUF BID 09/15 899 AC 09/17 Formoterol Fumarate INH 1019 Diltiazem HCl 125 MG Q12H 09/16 0500 r 09/17 Dextrose/Water 100 ML IV 0506 Duloxetine HCl 60 MG DAILY 09/15 899 AC 09/17 PO 0937 Furosemide 40 MG ONCE ONE 09/17 914 DC 09/17 IV 09/17 0916 0937 Furosemide 20 MG DAILY 09/15 899 AC 09/17 PO 0937 Insulin Aspart 0 TIDAC 09/17 799 AC 09/17 SC 1151 Insulin Detemir 15 UNITS BID 09/15 014 AC 09/17 SC 0938 Ipratropium [place] 2.5 ML EVERY 4 HRS/AWAKE 09/15 1200 AC 09/17 INH 1343 Ketorolac 15 MG Q8P PRN 09/15 0145 AC Tromethamine IV Methylprednisolone 40 MG Q12 09/16 2100 AC 09/17 IV 0937 Omeprazole 20 MG BID 09/15 899 AC 09/17 PO 09 Tamsulosin HCl 0.4 MG QPM 09/15 2100 AC 09/16 PO 2045 Impression/Plan Impression/Problem List Impression: 72-year-old gentleman with past medical history of COPD on 2-3 L of home oxygen, hypertension, diabetes mellitus, rheumatoid arthritis on methotrexate, atrial flutter/fibrillation on Eliquis, obstructive sleep apnea on CPAP, diastolic heart failure (prior hx EF 55%). He was brought in by ambulance with complaint of disorientation and lethargy. He is currently being evaluated and treated for following conditions Respiratory #Acute on chronic hypoxemic hypercapnic respiratory failure Patient has history of COPD on 2-3 L and was found to have oxygen saturation of 70%. He was disoriented and lethargic on presentation and was placed on BiPAP. ABG this morning shows 7.47/47/78/74 which improved on BiPAP. chest x-ray was positive for Bibasilar opacification, atelectasis versus pneumonia and vascular congestion without overt pulmonary edema. He was maintained on BiPAP overnight started on broad coverage for hospital-acquired pneumonia with vancomycin and ceftazidime and azithromycin. Patient has frequent hospitalizations with most recent discharge on 08/16/17. -Patient is more awake and alert after Discontinuing his Ativan drip -Will repeat [facility]G;s Continue BiPAP -CT chest showed mild centrilobular emphysema, no evidence of acute pneumonia or pulmonary edema, small pleural effusion right more than left #Acute COPD exacerbation Patient was hypoxic and hypercapnic on admission. He is on 2-3 L of oxygen at home. Also on chronic steroids 20mg prednisone daily. -TRC -Continue IV Solu-Medrol 40 every 12 -Continue Symbicort (LABA and ICS) -Continue BiPAP #Hx of BOB -Continue Bipap for now Infection #Possible hospital-acquired pneumonia Was ruled out by CT chest yesterday On admission chest x-ray was positive for bibasilar opacification given frequent hospitalization and recent discharge patient was started on vancomycin, ceftazidime and azithromycin for broad coverage. He had a white count on presentation and mild hypothermia. It should be noted that patient is on 20 mg prednisone home dose of steroids. So white count might be representation of that rather than infection -Patient was afebrile, WBC trended down -Lactic acid WNL -Urine strep and Legionella negative Renal function was positive for VRE -Blood cultures negative - Vanco and ceftaz were discontinued yesterday Continue azithromycin for COPD exacerbation Cardiology #History of atrial flutter/fibrillation Currently his heart rate in the [id number] We will increase Cardizem drip to 15 Ml/H, goal heart rate is less than 110, discussed with Dr. Mcgill. if continues to be tachycardic after maximal dose of Cardizem drip, will inform cardiology -Continue Eliquis Continue to follow cardiology recommended #History of diastolic heart failure proBNP 845. Chest x-ray showed pulmonary congestion without overt pulmonary edema -Continue home dose of Lasix, statin and metoprolol -Lasix 40 mg IV once #History of hypertension Continue home medication (Lasix metoprolol and Cardizem) Hematology #Leukocytosis WBC this a.m. is 11.6. It should be noted that patient is on 20 mg prednisone home dose of steroids currently on IV Solu-Medrol which can be the cause of his leukocytosis. -Continue to monitor #Macrocytic anemia H/H stable. Elevated MCH and MCV possible etiology B12 or folate deficiency -Continue to monitor -We will check B12 and folate levels, iron, TIBC, ferritin -Of note patient is on vitamin B12 injections, vegetarian? Metabolic #Respiratory acidosis and compensatory metabolic alkalosis Improving ABG significant for hypercapnia resulting in respiratory acidosis and elevated bicarb up to 46 on presentation represents compensatory metabolic alkalosis -Continue BiPAP #Diabetes mellitus Blood sugar poorly controlled -Fingersticks 3 times daily/at bedtime -Start sliding scale high-dose -Long-acting insulin 30 units twice daily (will substitute Levemir for Lantus) Musculoskeletal #History of gout -Continue allopurinol #Hx of Rheumatoid Arthritis -Continue methotrexate and steroids #Patient takes aldronate every 70 mg, should be continued during his stay #Back pain -Hold oxycodone for now in setting of confusion Alimantary NPO for now, is more awake now can take his medications orally. Bedside swallow eval drank sip of water with no cough etc -Continue omeprazole Nephrology Creatinine baseline #BPH -Continue tamsulosin Neurology #Toxic/metabolic encephalopathy Improving after his ABG improved on the BiPAP and after discontinuing the Ativan drip CT head did not show any acute lesions -Continue BiPAP DVT prophylaxis with Alps and Eliquis Full code Problem List: 1. COPD with acute exacerbation Pain Ratin Tomorrow's Labs & Rationales: CBC ICU bundle
[2017-09-17 08:00] VITALS: BP 102/78
[2017-09-17 12:00] VITALS: BP 110/70
[2017-09-17 16:00] VITALS: BP 118/70
--- NOTE | 2017-09-17 18:14 | PN- Cardiology ---
Subjective Subjective: The patient remains in atrial flutter. Rate is not fully controlled on diltiazem drip. Patient continues to be short of breath. No chest pain. Objective Vital Signs and I&Os Vital Signs Date Time Temp Pulse Resp B/P B/P Pulse O2 O2 Flow FiO2 Mean Ox Delivery Rate 09/18 1599 98.0 128 32 118/70 95 Nasal 4.0L Cannula 09/18 1599 95 Nasal 4.0L Cannula 09/17 1200 94 Nasal 4.0L Cannula 09/17 1200 98.3 130 33 110/70 98 Nasal 4.0L Cannula 09/17 0901 93 Nasal 4.0L Cannula 09/17 08 93 Nasal 4.0L Cannula 09/18 799 98.2 124 23 102/78 93 Nasal 4.0L Cannula 09/17 0605 124 95 09/17 0400 94 BIPAP 40% 09/17 0325 110 94 09/17 0039 98 96 09/17 0000 96.8 104 24 112/66 91 BIPAP 40% 09/17 0000 92 BIPAP 40% 09/16 2233 126 93 09/16 2046 100 108/74 09/16 2017 94 Nasal 4.0L Cannula 09/17 1999 95 Nasal 4.0L Cannula Intake & Output 09/17 0800 09/17 0000 09/16 0809/16 0000 Intake Total 1187.6 141 384 910 14 840 Output Total 200 600 350 800 0 Balance 987.6 -459 34 110 14 840 Intake, IV 347.6 81 84 610 14 0 Intake, Oral 840 60 300 300 0 840 Number 1 0 0 0 Bowel Movements Output, Urine 200 600 350 800 0 Patient 258 lb 259 lb Weight Weight Bed scale Measurement Method Physical Exam: Gen: The patient is in no acute distress HEENT: Normal nose, ears, and oropharynx. Pupils equal bilaterally. Conjunctiva normal. Neck: Supple with no JVD, no masses, and no thyromegaly Lungs: Decreased breath sounds with normal respiratory effort Heart: S1, S2, 1/6 systolic mumrmur. 2+ peripheral edema, 2+ pulses in the lower extremities bilaterally Abdomen: Soft, nontender, no masses. No hepatomegaly. No splenomegaly Extremities: No clubbing or cyanosis. Normal muscle strength in the upper and lower extremities. Skin: Normal skin turgor with no skin ulcers or lesions noted. Neuro: Cranial nerves intact. Sensation intact Current Medications: Current Medications Sig/Lakisha Start time Last Medication Dose Route Stop Time Status Admin Albuterol Sulfate 3 ML EVERY 4 HRS/AWAKE 09/15 1200 AC 09/17 INH 1342 Allopurinol 300 MG DAILY 09/15 899 AC 09/17 PO 0937 Apixaban 5 MG BID 09/15 899 AC 09/17 PO 0937 Atorvastatin Calcium 10 MG 1700 09/15 1700 AC 09/17 PO 1633 Azithromycin 500 MG DAILY 09/15 899 AC 09/17 Sodium Chloride 250 ML IV 0938 Budesonide/ 2 PUF BID 09/15 899 AC 09/17 Formoterol Fumarate INH 1019 Diltiazem HCl 125 MG Q12H 09/16 0500 AC 09/17 Dextrose/Water 100 ML IV 1633 Duloxetine HCl 60 MG DAILY 09/15 899 AC 09/17 PO 0937 Furosemide 40 MG ONCE ONE 09/17 914 DC 09/17 IV 09/17 0916 0937 Furosemide 20 MG DAILY 09/15 899 AC 09/17 PO 0937 Insulin Aspart 0 TIDAC 09/16 08 AC 09/17 SC 1633 Insulin Detemir 15 UNITS BID 09/15 0140 AC 09/17 SC 0938 Ipratropium [place] 2.5 ML EVERY 4 HRS/AWAKE 09/15 1200 AC 09/17 INH 1343 Ketorolac 15 MG Q8P PRN 09/15 0145 AC Tromethamine IV Methylprednisolone 40 MG Q12 09/16 2100 AC 09/17 IV 0937 Omeprazole 20 MG BID 09/15 899 AC 09/17 PO 0937 Tamsulosin HCl 0.4 MG QPM 09/15 2100 AC 09/16 PO 2046 Results Last 48 Hrs of Labs/Mics: Laboratory Tests 09/17/17 1010: pH 7.49 H, pCO2 39, pO2 64 L, HCO3 29 H, ABG O2 Sat (Measured) 93.0 L, Carboxyhemoglobin 0.6 L, O2 Concentration % 4L, O2 Delivery Method NC, Phlebotomy Draw Site RIGHT RADIAL 09/17/17 0445: Anion Gap 5, Estimated GFR > 60, Glucose 268 H, Calcium 8.7, Phosphorus 3.1, Magnesium 2.0, Total Bilirubin 0.7, AST 15 L, ALT 53, Albumin 2.9 L, CBC w Diff MAN DIFF ORDERED, RBC 3.82 L, MCV 95.3 H, MCH 30.9, MCHC 32.5 L, RDW 18.1 H, MPV 8.8, Gran % 94.4 H, Lymphocytes % 2.9 L, Monocytes % 2.7, Eosinophils % 0, Basophils % 0, Absolute Granulocytes 8.8 H, Segmented Neutrophils 96 H, Absolute Lymphocytes 0.3 L, Lymphocytes 3 L, Monocytes 1 L , Absolute Monocytes 0.2, Absolute Eosinophils 0, Absolute Basophils 0, Platelet Estimate ADEQUATE, Polychromasia 1+, Hypochromic-Microcytic 1+, Ovalocytes FEW, Fld Total RBCs Counted 100 09/16/17 1044: Ammonia < 9 L, PT 19.0 H, INR 1.73 H 09/16/17 0545: pH 7.47 H, pCO2 47 H, pO2 78 L, HCO3 34 H, ABG O2 Sat (Measured) 96.0, P-50 (Temp Corrected) N, Carboxyhemoglobin 0.6 L, O2 Concentration % .40, Respiration Rate 24, O2 Delivery Method BIPAP, Vent Mode ST, Expiratory Pressure 4, Inspiratory Pressure 20, Phlebotomy Draw Site RIGHT RADIAL 09/16/17 0420: Anion Gap 7, Estimated GFR > 60, Glucose 260 H, Calcium 9.1, Phosphorus 3.0, Magnesium 1.9, Total Bilirubin 0.7, AST 20, ALT 63, Albumin 3.2 L, CBC w Diff NO MAN DIFF REQ, RBC 3.96 L, MCV 96.5 H, MCH 30.5, MCHC 31.7 L, RDW 17.5 H, MPV 9.0, Gran % 94.7 H, Lymphocytes % 2.7 L, Monocytes % 2.6, Eosinophils % 0, Basophils % 0, Absolute Granulocytes 11.0 H, Absolute Lymphocytes 0.3 L, Absolute Monocytes 0.3, Absolute Eosinophils 0, Absolute Basophils 0 Assessment/Plan Assessment/Plan Assessment: 1. COPD exacerbation 2. Atrial flutter, rate not fully controlled 3. Chronic diastolic heart failure Plan: * Increase Cardizem drip to 15 mg/h for additional rate control. Target heart rate is less than 110 * If ventricular rate remains uncontrolled on maximal dose of diltiazem drip, would consider adding digoxin * 40 mg's of IV Lasix given today * Continue Eliquis Continue telemetry? Yes
--- NOTE | 2017-09-17 18:52 | Event Note ---
Event Note Event Note: S: HR 130s B: Patient is 72-year-old gentleman who is being treated and evaluated for acute on chronic hypercapnic hypoxemic respiratory failure. He has history of atrial fibrillation/flutter. He has been evaluated by cardiology and was found to be in atrial flutter. Patient has been started on Cardizem drip however his rate was not being adequately controlled. A/P patient has maxed out on Cardizem drip 15 mg/h. Going to start him on digoxin loading for better heart rate control. Dr. Mcgill was consulted who gave following recommendations * 0.5 mg IV followed by 0.25 mg IV after 6 hours followed by another 0.25 mg IV after 6 hours. * We will check digoxin level in the morning, will put on oral dose accordingly after discussion with cardiology * if patient requires any urethral catheterization this is to be done only with urology
[2017-09-17 23:37] VITALS: BP 128/64
--- NOTE | 2017-09-18 07:09 | PN- Resident CRCU ---
Kristian TINEO,Tarah 09/18/17 0708: Subjective HPI/CRCU Issues: Acute on chronic hypoxemic hypercapnic respiratory failure due to COPD exacerbation Possible hospital-acquired pneumonia Diabetes mellitus History of atrial flutter/fibrillation Toxic/metabolic encephalopathy 24 Hour Events: Patient was seen and examined at bedside, he is more alert and awake. Vital signs stable, heart rate still in the [id number], his dig level was 3.1, was given IV push of Lopressor 10, was restarted on metoprolol 50 mg, his blood sugar was running in the 043022 range, his Levemir was increased to 30 twice daily which is his home dose Objective Vital Signs & I&O Last 8 Hrs of Vitals and I&O: Vital Signs Date Time Temp Pulse Resp B/P B/P Pulse O2 O2 Flow FiO2 Mean Ox Delivery Rate 09/18 0815 97 Nasal 4.0L Cannula 09/18 08 97.9 126 30 128/80 98 Nasal 4.0L Cannula 09/18 0757 128 128/80 09/18 0755 129 95 09/18 0622 128 144/80 09/18 0553 130 94 09/18 0400 92 BIPAP 40% 09/18 0307 129 92 09/18 0021 128 92 09/18 0000 128 147/83 09/18 0000 94 BIPAP 40% 09/17 2337 98.1 126 24 128/64 94 BIPAP 40% 09/17 2253 128 94 09/17 2121 128 131/67 09/17 2000 94 Nasal 4.0L Cannula 09/17 1837 130 09/17 1813 92 Nasal 4.0L Cannula 09/17 1600 98.0 128 32 118/70 95 Nasal 4.0L Cannula 09/17 1600 95 Nasal 4.0L Cannula Intake & Output 09/18 1600 09/18 0800 08 0000 Intake Total 232 850 Output Total 650 975 Balance -418 -125 Intake, IV 112 130 Intake, Oral 120 720 Output, Urine 650 975 Patient 266 lb Weight Weight Bed scale Measurement Method Intake & Output 09/18 1600 Intake Total Output Total Balance Patient 266 lb Weight Weight Bed scale Measurement Method Exam General Appearance: alert, awake Respiratory: normal breath sounds Cardiovascular: regular rate/rhythm, tachycardia Gastrointestinal: normal bowel sounds, soft Extremities: 2 +pitting edema Current Medications: Current Medications Sig/Lakisha Start time Last Medication Dose Route Stop Time Status Admin Albuterol Sulfate 3 ML EVERY 4 HRS/AWAKE 09/15 1200 AC 09/18 INH 1207 Allopurinol 300 MG DAILY 09/15 0900 AC 09/18 PO 0938 Apixaban 5 MG BID 09/15 0900 AC 09/18 PO 0938 Atorvastatin Calcium 10 MG 1700 09/15 1700 AC 09/17 PO 1633 Azithromycin 500 MG DAILY 09/15 0900 AC 09/18 Sodium Chloride 250 ML IV 0938 Budesonide/ 2 PUF BID 09/15 09 AC 09/18 Formoterol Fumarate INH 1003 Digoxin 0.25 MG 0630 09/18 0630 DC 09/18 IV 09/18 0631 0622 Digoxin 0.25 MG 0030 09/18 0030 DC 09/18 IV 09/18 0031 0000 Digoxin 0.5 MG ONCE ONE 09/17 1830 DC 09/17 IV 09/17 1831 1837 Diltiazem HCl 125 MG Q8H 09/18 0900 AC 09/18 Dextrose/Water 100 ML IV 0938 Diltiazem HCl 125 MG Q12H 09/16 0500 DC 09/18 Dextrose/Water 100 ML IV 09/18 0859 0159 Duloxetine HCl 60 MG DAILY 09/15 09 AC 09/18 PO 0938 Furosemide 40 MG ONCE ONE 09/18 0830 DC 09/18 IV 09/18 0831 0938 Furosemide 20 MG DAILY 09/15 0900 AC 09/18 PO 0938 Insulin Aspart 0 TIDAC 09/16 0800 AC 09/18 SC 1209 Insulin Detemir 30 UNITS BID 09/18 0900 AC 09/18 SC 0939 Insulin Detemir 15 UNITS BID 09/15 0140 DC 09/17 SC 2121 Ipratropium [place] 2.5 ML EVERY 4 HRS/AWAKE 09/15 1200 AC 09/18 INH 1206 Ketorolac 15 MG Q8P PRN 09/15 0145 AC Tromethamine IV Methylprednisolone 40 MG Q12 09/16 2100 DC 09/18 IV 0938 Metoprolol Tartrate 100 MG BID 09/18 2100 DC PO Metoprolol Tartrate 50 MG BID 09/18 2100 AC PO Metoprolol Tartrate 50 MG ONCE ONE 09/18 1030 DC 09/18 PO 09/18 1031 1210 Metoprolol Tartrate 0 .STK-MED ONE 09/18 0746 DC IV Metoprolol Tartrate 5 MG ONCE ONE 09/18 744 DC 09/18 IV 09/18 07 0757 Omeprazole 20 MG BID 09/15 899 AC 09/18 PO 09 Prednisone 40 MG DAILY 09/19 899 AC PO Tamsulosin HCl 0.4 MG QPM 09/15 2100 AC 09/17 PO 2120 Impression/Plan Impression/Problem List Impression: 72-year-old gentleman with past medical history of COPD on 2-3 L of home oxygen, hypertension, diabetes mellitus, rheumatoid arthritis on methotrexate, atrial flutter/fibrillation on Eliquis, obstructive sleep apnea on CPAP, diastolic heart failure (prior hx EF 55%). He was brought in by ambulance with complaint of disorientation and lethargy. He is currently being evaluated and treated for following conditions Respiratory #Acute on chronic hypoxemic hypercapnic respiratory failure Patient has history of COPD on 2-3 L and was found to have oxygen saturation of 70%. He was disoriented and lethargic on presentation and was placed on BiPAP. -Patient is more awake and alert -Will repeat anther ABG;s Continue BiPAP -CT chest showed mild centrilobular emphysema, no evidence of acute pneumonia or pulmonary edema, small pleural effusion right more than left #Acute COPD exacerbation Patient was hypoxic and hypercapnic on admission. He is on 2-3 L of oxygen at home. Also on chronic steroids 20mg prednisone daily. -TRC -DC IV Solu-Medrol Start p.o. prednisone 40 mg daily -Continue Symbicort (LABA and ICS) -Continue BiPAP #Hx of BOB -Continue Bipap for now Infection #Possible hospital-acquired pneumonia Was ruled out by CT chest yesterday On admission chest x-ray was positive for bibasilar opacification given frequent hospitalization and recent discharge patient was started on vancomycin, ceftazidime and azithromycin for broad coverage. He had a white count on presentation and mild hypothermia. It should be noted that patient is on 20 mg prednisone home dose of steroids. So white count might be representation of that rather than infection -Patient was afebrile, WBC trended down -Lactic acid WNL -Urine strep and Legionella negative Renal function was positive for VRE -Blood cultures negative - Vanco and ceftaz were discontinued yesterday Continue azithromycin for COPD exacerbation Cardiology #History of atrial flutter/fibrillation Currently his heart rate in the [id number] Patient was still tachycardic in the [id number] today after he makes it on Cardizem drip at the rate of 15 and he received loading dose of digoxin 0.5 mg followed by 2 doses of 0.25 overnight Digoxin level this morning was 3.1 Will restart metoprolol 50 mg twice daily as per cardiology recommendation -Continue Eliquis Continue to follow cardiology recommended #History of diastolic heart failure proBNP 845. Chest x-ray showed pulmonary congestion without overt pulmonary edema -Continue home dose of Lasix, statin and metoprolol -Lasix 40 mg IV once #History of hypertension Continue home medication (Lasix metoprolol and Cardizem) Hematology #Leukocytosis WBC this a.m. is 11.6. It should be noted that patient is on 20 mg prednisone home dose of steroids currently on IV Solu-Medrol which can be the cause of his leukocytosis. -Continue to monitor #Macrocytic anemia H/H stable. Elevated MCH and MCV possible etiology B12 or folate deficiency -Continue to monitor -We will check B12 and folate levels, iron, TIBC, ferritin -Of note patient is on vitamin B12 injections, vegetarian? Metabolic #Respiratory acidosis and compensatory metabolic alkalosis Improving ABG significant for hypercapnia resulting in respiratory acidosis and elevated bicarb up to 46 on presentation represents compensatory metabolic alkalosis -Continue BiPAP #Diabetes mellitus Blood sugar poorly controlled running in the [id number] -Fingersticks 3 times daily/at bedtime -Start sliding scale high-dose -Long-acting insulin 30 units twice daily (will substitute Levemir for Lantus) his home dose Endocrinology consult appreciated Musculoskeletal #History of gout -Continue allopurinol #Hx of Rheumatoid Arthritis -Continue methotrexate and steroids #Patient takes aldronate every 70 mg, should be continued during his stay #Back pain -Hold oxycodone for now in setting of confusion Alimantary NPO for now, is more awake now can take his medications orally. Bedside swallow eval drank sip of water with no cough etc -Continue omeprazole Nephrology Creatinine baseline #BPH -Continue tamsulosin Neurology #Toxic/metabolic encephalopathy Improving after his ABG improved on the BiPAP and after discontinuing the Ativan drip CT head did not show any acute lesions -Continue BiPAP DVT prophylaxis with Alps and Eliquis Full code Problem List: 1. Acute and chronic respiratory failure with hypoxia 2. Diabetes Pain Ratin Tomorrow's Labs & Rationales: CBC ICU bundle Plan DVT/Prophylaxis: mechanical, pharmacological Sebastian Blake MD 09/18/17 1056: Attending MD Review Statement Attending Sign Off Attending Cosign Statement: I have: examined this patient, reviewed avalbl EMR data, personally reviewd images, discussd w/resident/PA/SUPERVISOR [employer], discussed mgmt plan w/dante, discussed mgmt plan w/CM, discussed mgmt plan w/pt, agreed w/resident/PA/SU[employer], amended to note. Other Findings: I, Sebastian Blake M.D. have examined this patient, reviewed available EMR data, personally reviewed images, discussed with resident/PA/SUPERVIS[employer], discussed management plan with housestaff and nursing staff, discussed managment plan all of healthcare providers, discussed management plan with patient and/or family, agreed with resident/PA/SUPERVISOR [employer]. The past history and parts of the chart have been autopopulated. Impression 72 year old man * acute on chronic hypoxemic and hypercarbic respiratory failure * Acute exacerbation of COPD * resolved confusion * a.fib/flutter - on Eliquis * DM - Insulin dependent * RA - chronic pain Plan Respiratory -nocturnal NIV if pt agreeable -maintain spo2 >92% -aspiration precautions -TRC/Nebs ID -dc abx with the exception of zithromax - no evidence of pneumonia -f/u sputum cx [facility] -can add metoprolol -currently on Eliquis -hemodynamic monitoring - currently on cardizem -continue lasix Heme -CBC monitoring Metabolic -ins/outs -continue lasix Alimentary -diet Neuro -hold sedatives DVT prophylaxis at all times (On Eliquis) Full Code TTS 40 minutes Patent is critically ill and requires ICU stay All questions answered, family at bedside. Of note - if patient requires any urethral catheterization this is to be done only with urology per patient request
[2017-09-18 08:00] VITALS: BP 128/80
--- NOTE | 2017-09-18 11:18 | PN- Cardiology ---
Subjective Subjective: No new cardiac symptoms or issues. Heart rate remains intimately elevated Objective Vital Signs and I&Os Vital Signs Date Time Temp Pulse Resp B/P B/P Pulse O2 O2 Flow FiO2 Mean Ox Delivery Rate 09/18 0815 97 Nasal 4.0L Cannula 09/18 0800 97.9 126 30 128/80 98 Nasal 4.0L Cannula 09/18 0757 128 128/80 09/18 0755 129 95 09/18 0622 128 144/80 09/18 0553 130 94 09/18 0400 92 BIPAP 40% 09/18 0307 129 92 09/18 0021 128 92 09/18 0000 128 147/83 09/18 0000 94 BIPAP 40% 09/17 2337 98.1 126 24 128/64 94 BIPAP 40% 09/17 2253 128 94 09/17 2121 128 131/67 09/17 2000 94 Nasal 4.0L Cannula 09/17 1837 130 09/17 1813 92 Nasal 4.0L Cannula 09/17 1600 98.0 128 32 118/70 95 Nasal 4.0L Cannula 09/17 1600 95 Nasal 4.0L Cannula 09/17 1200 94 Nasal 4.0L Cannula 09/17 1200 98.3 130 33 110/70 98 Nasal 4.0L Cannula Intake & Output 09/18 1600 09/18 0809/18 0000 09/17 1600 09/17 0809/17 0000 Intake Total 453 839 7180.6 141 384 Output Total 650 975 200 600 350 Balance -418 -125 987.6 -459 34 Intake, IV 112 130 347.6 81 84 Intake, Oral 120 720 840 60 300 Number 1 Bowel Movements Output, Urine 650 975 200 600 350 Patient 266 lb 258 lb Weight Weight Bed scale Measurement Method Physical Exam: Gen: The patient is in no acute distress HEENT: Normal nose, ears, and oropharynx. Pupils equal bilaterally. Conjunctiva normal. Neck: Supple with no JVD, no masses, and no thyromegaly Lungs: Decreased breath sounds with normal respiratory effort Heart: S1, S2, 1/6 systolic mumrmur. 2+ peripheral edema, 2+ pulses in the lower extremities bilaterally Abdomen: Soft, nontender, no masses. No hepatomegaly. No splenomegaly Extremities: No clubbing or cyanosis. Normal muscle strength in the upper and lower extremities. Skin: Normal skin turgor with no skin ulcers or lesions noted. Neuro: Cranial nerves intact. Sensation intact Current Medications: Current Medications Sig/Lakisha Start time Last Medication Dose Route Stop Time Status Admin Albuterol Sulfate 3 ML EVERY 4 HRS/AWAKE 09/15 1200 AC 09/18 INH 0755 Allopurinol 300 MG DAILY 09/15 0900 AC 09/18 PO 0938 Apixaban 5 MG BID 09/15 09 AC 09/18 PO 0938 Atorvastatin Calcium 10 MG 1700 09/15 1700 AC 09/17 PO 1633 Azithromycin 500 MG DAILY 09/15 09 AC 09/18 Sodium Chloride 250 ML IV 0938 Budesonide/ 2 PUF BID 09/15 09 AC 09/18 Formoterol Fumarate INH 1003 Digoxin 0.25 MG 0630 09/18 0630 DC 09/18 IV 09/18 0631 0622 Digoxin 0.25 MG 0030 09/18 0030 DC 09/18 IV 09/18 0031 0000 Digoxin 0.5 MG ONCE ONE 09/17 1830 DC 09/17 IV 09/17 1831 1837 Diltiazem HCl 125 MG Q8H 09/18 0900 AC 09/18 Dextrose/Water 100 ML IV 0938 Diltiazem HCl 125 MG Q12H 09/16 0500 DC 09/18 Dextrose/Water 100 ML IV 09/18 0859 0159 Duloxetine HCl 60 MG DAILY 09/15 899 AC 09/18 PO 0938 Furosemide 40 MG ONCE ONE 09/18 0830 DC 09/18 IV 09/18 0831 0938 Furosemide 20 MG DAILY 09/15 0900 AC 09/18 PO 0938 Insulin Aspart 0 TIDAC 09/16 08 AC 09/18 SC 0822 Insulin Detemir 30 UNITS BID 09/18 0900 AC 09/18 SC 0939 Insulin Detemir 15 UNITS BID 09/15 0140 DC 09/17 SC 2121 Ipratropium [place] 2.5 ML EVERY 4 HRS/AWAKE 09/15 1200 AC 09/18 INH 0755 Ketorolac 15 MG Q8P PRN 09/15 0145 AC Tromethamine IV Methylprednisolone 40 MG Q12 09/16 2100 AC 09/18 IV 0938 Metoprolol Tartrate 100 MG BID 09/18 2100 DC PO Metoprolol Tartrate 50 MG BID 09/18 2100 AC PO Metoprolol Tartrate 50 MG ONCE ONE 09/18 1030 DC PO 09/18 1031 Metoprolol Tartrate 0 .STK-MED ONE 09/18 0646 DC IV Metoprolol Tartrate 5 MG ONCE ONE 09/18 0745 DC 09/18 IV 09/18 0646 0757 Omeprazole 20 MG BID 09/15 0900 AC 09/18 PO 0938 Tamsulosin HCl 0.4 MG QPM 09/15 2100 AC 09/17 PO 2121 Results Last 48 Hrs of Labs/Mics: Laboratory Tests 09/18/17 0753: Digoxin 3.1 *H 09/18/17 0455: Anion Gap 8, Estimated GFR > 60, Glucose 377 H, Calcium 8.8, Phosphorus 3.3, Magnesium 2.0, Total Bilirubin 0.8, AST 29, ALT 81 H, Albumin 3.2 L 09/17/17 1010: pH 7.49 H, pCO2 39, pO2 64 L, HCO3 29 H, ABG O2 Sat (Measured) 93.0 L, Carboxyhemoglobin 0.6 L, O2 Concentration % 4L, O2 Delivery Method NC, Phlebotomy Draw Site RIGHT RADIAL 09/17/17 0445: Anion Gap 5, Estimated GFR > 60, Glucose 268 H, Calcium 8.7, Phosphorus 3.1, Magnesium 2.0, Total Bilirubin 0.7, AST 15 L, ALT 53, Albumin 2.9 L, CBC w Diff MAN DIFF ORDERED, RBC 3.82 L, MCV 95.3 H, MCH 30.9, MCHC 32.5 L, RDW 18.1 H, MPV 8.8, Gran % 94.4 H, Lymphocytes % 2.9 L, Monocytes % 2.7, Eosinophils % 0, Basophils % 0, Absolute Granulocytes 8.8 H, Segmented Neutrophils 96 H, Absolute Lymphocytes 0.3 L, Lymphocytes 3 L, Monocytes 1 L , Absolute Monocytes 0.2, Absolute Eosinophils 0, Absolute Basophils 0, Platelet Estimate ADEQUATE, Polychromasia 1+, Hypochromic-Microcytic 1+, Ovalocytes FEW, Fld Total RBCs Counted 100 Assessment/Plan Assessment/Plan Assessment: 1. COPD exacerbation 2. Atrial flutter, rate not fully controlled 3. Chronic diastolic heart failure Plan: -Continue current medications for now. -Although dig level today was elevated at 3.1, the validity is unclear since the patient was just loaded with digoxin. For now, however, hold today's digoxin dose, recheck dig level in the morning. -Restart metoprolol 50 mg twice daily and titrate back to previous dose as tolerated by blood pressure. Continue telemetry? Yes
[2017-09-18 12:00] VITALS: BP 104/60
--- NOTE | 2017-09-18 13:18 | Cons- Endocrinology ---
General Information and HPI Consulting Request Date of Consult: 09/18/17 Requested By: ICU team Reason for Consult: management of uncontrolled diabetes reated to steroid. Source of Information: patient, old records Exam Limitations: no limitations History of Present Illness: 72 y/o male with hx of COPD on home oxygen and predniosne 20 mg daily chronically, diabetes type 2 on Lantus 30 units twice a day only as outpatient as per Dr. Zee ( HbA1c was 8.5% in 05/2017). He was admitted for acute hypoxemic hypercapnic respiratory failure and was put on Solumedrol. His glucose levels were in the 300s and 400s. In hospital, initially he was put Levemir 15 units twice a day, Novolog coverage before meals. His diet was changed to consistent carbohydrates 1 diet. On 09/18/2017, Levemir was increased to 30 units twice a day. Solumedrol was discontinued. From 09/19/2017, he will be on prednisone 40 mg daily. Allergies/Medications Allergies: Coded Allergies: Sulfa (Sulfonamide Antibiotics) (Intermediate, RASH/HIVES 06/06/17) Home Med List: Albuterol Sulfate 2.5 MG/3 ML (0.083 %) VIAL.NEB 1 Vial INH/TAPAN 5 TIMES A DAY COPD (Reported) Alendronate Sodium 70 MG TABLET 1 TAB PO QTHURS BONES (Reported) in the morning, at least 30 minutes before the first food, beverage, or medication of the day Allopurinol 300 MG TABLET 1 TAB PO DAILY GOUT (Reported) Apixaban (Eliquis) 5 MG TABLET 1 TAB PO BID Atrial Fibrilliation Budesonide/Formoterol Fumarate (Symbicort 160-4.5 Mcg Inhaler) 160 MCG-4.5 MCG/ ACTUATION HFA.AER.AD 2 PUF INH BID COPD (Reported) Cyanocobalamin (Vitamin B-12) (Cyanocobalamin Injection) 1,000 MCG/ML VIAL 1 ML IM Q30D SUPPLEMENT (Reported) Diltiazem HCl (Cardizem Cd) 240 MG CAP.ER.24H 240 MG PO DAILY heart . Docusate Sodium (Stool Softener) 100 MG CAPSULE 1 CAP PO BID STOOL SOFTENER ( Reported) Duloxetine HCl (Cymbalta) 60 MG CAPSULE.DR 1 CAP PO DAILY MENTAL HEALTH ( Reported) Folic Acid 1 MG TABLET 1 TAB PO BID SUPPLEMENT (Reported) Furosemide (Lasix) 20 MG TABLET 1 TAB PO DAILY Fluid Retention Insulin Glargine,Hum.rec.anlog (Lantus Solostar) 100 UNIT/ML (3 ML) INSULN.PEN 30 UNIT SC BID DIABETES (Reported) Lovastatin 40 MG TABLET 1 TAB PO QPM CHOLESTEROL (Reported) with food Methotrexate 2.5 MG TABLET 6 TAB PO QTHURS RA (Reported) Metoprolol Tartrate (Lopressor) 100 MG TABLET 1 TAB PO BID heart (Reported) Omeprazole 20 MG CAPSULE.DR 1 CAP PO BID GI (Reported) Oxycodone HCl/Acetaminophen (Oxycodone-Acetaminophen 10-325) 10 MG-325 MG TABLET 1 TAB PO 4XDP PRN PAIN (Reported) Prednisone 20 MG TABLET 1 TAB PO DAILY copd (Reported) Tamsulosin HCl 0.4 MG CAP.ER.24H 1 CAP PO QPM BPH (Reported) Review of Systems Review of Systems Constitutional: Reports: see HPI. Cardiovascular: Reports: palpitations. Respiratory: Reports: short of breath. GI: Denies: abdominal pain, nausea, vomiting. Hematologic/Endocrine: Denies: polyuria, polydipsia. Past History Travel History Traveled to Court past 21 day No Medical History Blood Transfusion Hx: No Neurological: NONE EENT: NONE Cardiovascular: AFIB, CHF, hypertension Respiratory: COPD, obstructive sleep apnea, with ongoing tobacco use disorder 02 DEPENDANT Gastrointestinal: NONE Hepatic: NONE Renal: benign prost hyperplasia Musculoskeletal: rheumatoid arthritis Psychiatric: NONE Endocrine: diabetes type 2 TYPE II Blood Disorders: NONE Cancer(s): BASAL CELL CA [employer]OR/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 Refer elsewhere in this and other documents for additional details. According to the patient's report he was asymptomatic and functionally unrestricted by his back prior to this injury. He did have functional limitation and restriction because of his other medical conditions. Refer to other inpatient and outpatient medical records for details regarding pre-injury functional status and deficits. Surgical History Surgical History: none (jjjg) Family History Relations & Conditions If Any: MOTHER FHx: cancer Psychosocial History Where Do You Live? Home Who Do You Live With? spouse Services at Home: Nursing, Oxygen (2.5 liters) Smoking Status: Current Everyday Smoker Functional Ability Ambulation: independent, Ambulatory distance was limited by pulmonary condition and not by any spinal symptoms prior to this injury. Pre-injury functional ability is detailed in "Other Medical Hx" section. Exam & Diagnostic Data Last 24 Hrs of Vital Signs/I&O Vital Signs Date Time Temp Pulse Resp B/P B/P Pulse O2 O2 Flow FiO2 Mean Ox Delivery Rate 09/18 1210 130 118/71 09/18 1210 93 Nasal 4.0L Cannula 09/18 1200 98.5 130 25 104/60 93 Nasal 4.0L Cannula 09/18 0815 97 Nasal 4.0L Cannula 09/18 08 97.9 126 30 128/80 98 Nasal 4.0L Cannula 09/18 08 93 Nasal 4.0L Cannula 09/18 0757 128 128/80 09/18 0755 129 95 09/18 0622 128 144/80 09/18 0553 130 94 09/18 0400 92 BIPAP 40% 09/18 0307 129 92 09/18 0021 128 92 09/18 0000 128 147/83 09/18 0000 94 BIPAP 40% 09/17 2337 98.1 126 24 128/64 94 BIPAP 40% 09/17 2253 128 94 09/17 2121 128 131/67 09/17 2000 94 Nasal 4.0L Cannula 09/17 1837 130 09/17 1813 92 Nasal 4.0L Cannula 09/17 1600 98.0 128 32 118/70 95 Nasal 4.0L Cannula 09/17 1600 95 Nasal 4.0L Cannula Intake & Output 09/18 1600 09/18 0800 09/18 0000 Intake Total 232 850 Output Total 650 975 Balance -418 -125 Intake, IV 112 130 Intake, Oral 120 720 Output, Urine 650 975 Patient 266 lb Weight Weight Bed scale Measurement Method Physical Exam General Appearance: mild distress Respiratory: wheezing (scattered) Cardiovascular: tachycardia Gastrointestinal: soft, distention Extremities: swelling Labs/Kiel Results: Laboratory Tests 09/18 09/18 09/17 0753 0455 1010 Blood Gas pH (7.35 - 7.45 PH) 7.49 H pCO2 (35 - 45 TORR) 39 pO2 (80 - 100 TORR) 64 L HCO3 (21 - 28 MEQ/L) 29 H ABG O2 Sat (Measured) (>96.0 %) 93.0 L Carboxyhemoglobin (1.5 - 5.0 %) 0.6 L O2 Concentration % 4L O2 Delivery Method HI Chemistry Sodium (137 - 145 mmol/L) 137 Potassium (3.5 - 5.1 mmol/L) 4.2 Chloride (98 - 107 mmol/L) 95 L Carbon Dioxide (22 - 30 mmol/L) 34 H Anion Gap (5 - 16) 8 BUN (9 - 20 mg/dL) 30 H Creatinine (0.7 - 1.2 mg/dL) 0.7 Estimated GFR (>60 ml/min) > 60 Glucose (65 - 99 mg/dL) 377 H Calcium (8.4 - 10.2 mg/dL) 8.8 Phosphorus (2.5 - 4.5 mg/dL) 3.3 Magnesium (1.6 - 2.3 mg/dL) 2.0 Total Bilirubin (0.2 - 1.3 mg/dL) 0.8 AST (17 - 59 U/L) 29 ALT (21 - 72 U/L) 81 H Albumin (3.5 - 5.0 g/dL) 3.2 L Miscellaneous Phlebotomy Draw Site RIGHT RADIAL Toxicology Digoxin (0.8 - 2.0 ng/mL) 3.1 *H 09/17 0445 Chemistry Sodium (137 - 145 mmol/L) 136 L Potassium (3.5 - 5.1 mmol/L) 4.1 Chloride (98 - 107 mmol/L) 96 L Carbon Dioxide (22 - 30 mmol/L) 35 H Anion Gap (5 - 16) 5 BUN (9 - 20 mg/dL) 25 H Creatinine (0.7 - 1.2 mg/dL) 0.6 L Estimated GFR (>60 ml/min) > 60 Glucose (65 - 99 mg/dL) 268 H Hemoglobin A1c (4.2 - 5.8 %) Pending Calcium (8.4 - 10.2 mg/dL) 8.7 Phosphorus (2.5 - 4.5 mg/dL) 3.1 Magnesium (1.6 - 2.3 mg/dL) 2.0 Total Bilirubin (0.2 - 1.3 mg/dL) 0.7 AST (17 - 59 U/L) 15 L ALT (21 - 72 U/L) 53 Albumin (3.5 - 5.0 g/dL) 2.9 L Hematology CBC w Diff MAN DIFF ORDERED WBC (4.8 - 10.8 /CUMM) 9.4 RBC (4.70 - 6.10 /CUMM) 3.82 L Hgb (14.0 - 18.0 G/DL) 11.8 L Hct (42 - 52 %) 36.4 L MCV (80.0 - 94.0 FL) 95.3 H MCH (27.0 - 31.0 PG) 30.9 MCHC (33.0 - 37.0 G/DL) 32.5 L RDW (11.5 - 14.5 %) 18.1 H Plt Count (130 - 400 /CUMM) 120 L MPV (7.4 - 10.4 FL) 8.8 Gran % (42.2 - 75.2 %) 94.4 H Lymphocytes % (20.5 - 51.1 %) 2.9 L Monocytes % (1.7 - 9.3 %) 2.7 Eosinophils % (0 - 5 %) 0 Basophils % (0.0 - 2.0 %) 0 Absolute Granulocytes (1.4 - 6.5 /CUMM) 8.8 H Segmented Neutrophils (42.2 - 75.2 %) 96 H Absolute Lymphocytes (1.2 - 3.4 /CUMM) 0.3 L Lymphocytes (20.5 - 51.1 %) 3 L Monocytes (1.7 - 9.3 %) 1 L Absolute Monocytes (0.10 - 0.60 /CUMM) 0.2 Absolute Eosinophils (0.0 - 0.7 /CUMM) 0 Absolute Basophils (0.0 - 0.2 /CUMM) 0 Platelet Estimate (ADEQUATE) ADEQUATE Polychromasia 1+ Hypochromic-Microcytic 1+ Ovalocytes FEW Other Body Source Fld Total RBCs Counted (%) 100 TSH 1.58. Assessment/Plan Assessment/Plan 72 y/o male with hx of COPD on home oxygen and predniosne 20 mg daily chronically, diabetes type 2 on Lantus 30 units twice a day only as outpatient as per Dr. Zee ( HbA1c was 8.5% in 05/2017). He was admitted for acute hypoxemic hypercapnic respiratory failure and was put on Solumedrol. His glucose levels were in the 300s and 400s. Plan: 1. continue Levemir 30 units twice a day; 2. adjust Novolog coverage before meals and adjust Novolog coverage at bedtime-- detail see the inpatient DM orders; 3. monitor FSGs; 4. repeat HbA1c will follow. Inpatient Diabetes Orders Before Each Meal: Bolus Insulin: Novolog < 80 mg/dl: no coverage 80-100 mg/dl: 8 units 101-120 mg/dl: 8 units 121-150 mg/dl: 8 units 151-200 mg/dl: 10 units 201-250 mg/dl: 12 units 251-300 mg/dl: 14 units 301-350 mg/dl: 16 units 351-400 mg/dl: 18 units > 400 mg/dl: 20 units Bedtime: Bolus Insulin: Novolog < 80 mg/dl: no coverage 80-100 mg/dl: no coverage 101-120 mg/dl: no coverage 121-150 mg/dl: no coverage 151-200 mg/dl: no coverage 201-250 mg/dl: no coverage 251-300 mg/dl: no coverage 301-350 mg/dl: 4 units 351-400 mg/dl: 5 units > 400 mg/dl: 6 units Consult Acknowledgment - Thank you for your consult request.
[2017-09-18 16:00] VITALS: BP 110/60
[2017-09-18 20:00] VITALS: BP 106/62
[2017-09-19] VITALS (7 sets, daily range): BP systolic 82–120; BP diastolic 50–80
[2017-09-19 04:29] LABS: ABSOLUTE BASOPHIL COUNT 0 /CUMM (0.0-0.2); ABSOLUTE EOSINOPHIL COUNT 0 /CUMM (0.0-0.7); ABSOLUTE GRANULOCYTE CT 9.2 /CUMM (1.4-6.5); ABSOLUTE LYMPH COUNT 0.3 /CUMM (1.2-3.4); ABSOLUTE MONOCYTE COUNT 0.7 /CUMM (0.10-0.60); BASOPHIL % 0 % (0.0-2.0); EOSINOPHIL % 0 % (0-5); HEMATOCRIT 36.4 % (42-52); MEAN CORPUSCULAR HGB 31.2 PG (27.0-31.0); MEAN CORPUSCULAR HGB CONC 32.7 G/DL (33.0-37.0); MEAN CORPUSCULAR VOLUME 95.2 FL (80.0-94.0); MEAN PLATELET VOLUME 8.9 FL (7.4-10.4); PLATELET COUNT 111 /CUMM (130-400); RBC DISTRIBUTION WIDTH 17.3 % (11.5-14.5); RED BLOOD CELL CT 3.82 /CUMM (4.70-6.10); WHITE BLOOD CELL COUNT 10.3 /CUMM (4.8-10.8)
--- NOTE | 2017-09-19 07:16 | PN- Resident CRCU ---
Kristian TINEO,Tarah 09/19/17 0716: Subjective HPI/CRCU Issues: Acute on chronic hypoxemic hypercapnic respiratory failure due to COPD exacerbation Possible hospital-acquired pneumonia Diabetes mellitus History of atrial flutter/fibrillation Toxic/metabolic encephalopathy 24 Hour Events: Patient was seen and examined, alert and awake, no overnight events, his heart rate is better controlled this morning less than 100 after restarting metoprolol 50 mg twice daily yesterday. Currently his Cardizem drip at 5. Blood sugar better controlled in the 200s range Objective Vital Signs & I&O Last 8 Hrs of Vitals and I&O: Vital Signs Date Time Temp Pulse Resp B/P B/P Pulse O2 O2 Flow FiO2 Mean Ox Delivery Rate 09/19 0621 72 97 09/19 0400 96 BIPAP 40% 09/19 040 96.1 94 25 120/70 96 BIPAP 40% 09/19 0332 83 96 09/19 0033 95 98 08/ 0000 95 BIPAP 40% 09/19 0000 96.3 94 26 120/80 95 BIPAP 40% 09/18 2242 118 95 09/18 2031 126 106/62 09/18 2030 126 106/62 09/18 2000 95 Nasal 4.0L Cannula 09/18 2000 97.8 118 26 106/62 96 Nasal 4.0L Cannula 09/18 1730 95 Nasal 4.0L Cannula 09/18 1600 96 Nasal 4.0L Cannula 09/18 1600 97.1 91 28 110/60 96 Nasal 4.0L Cannula 09/18 1210 130 118/71 09/18 1210 93 Nasal 4.0L Cannula 09/18 1200 93 Nasal 4.0L Cannula 09/18 1200 98.5 130 25 104/60 93 Nasal 4.0L Cannula Intake & Output 09/19 1600 09/19 0800 09/19 0000 Intake Total 73 569.6 Output Total 800 Balance 73 -230.4 Intake, IV 73 89.6 Intake, Oral 0 480 Number 0 1 Bowel Movements Output, Urine 800 Patient 267 lb Weight Weight Bed scale Measurement Method Exam General Appearance: alert, awake, comfortable Neck: normal inspection, supple Respiratory: normal breath sounds Cardiovascular: tachycardia Gastrointestinal: normal bowel sounds, soft, non-tender Extremities: 2 + bilateral pitting edema Current Medications: Current Medications Sig/Lakisha Start time Last Medication Dose Route Stop Time Status Admin Albuterol Sulfate 3 ML EVERY 4 HRS/AWAKE 09/15 1200 AC 09/19 INH 1204 Allopurinol 300 MG DAILY 09/15 0800 AC 09/19 PO 0856 Apixaban 5 MG BID 09/15 0800 AC 09/19 PO 0856 Atorvastatin Calcium 10 MG 1700 09/15 1700 AC 09/18 PO 1617 Azithromycin 500 MG DAILY 09/15 899 AC 09/19 Sodium Chloride 250 ML IV 0858 Budesonide/ 2 PUF BID 09/15 899 AC 09/19 Formoterol Fumarate INH 0857 Diltiazem HCl 125 MG Q16H 09/19 2200 DC Dextrose/Water 100 ML IV Diltiazem HCl 125 MG Q13H 09/19 1230 AC Dextrose/Water 100 ML IV Diltiazem HCl 30 MG Q6 09/19 1200 AC PO Diltiazem HCl 125 MG Q20H 09/19 0915 DC Dextrose/Water 100 ML IV Diltiazem HCl 125 MG Q10H 09/18 2030 DC 09/19 Dextrose/Water 100 ML IV 0856 Diltiazem HCl 125 MG Q8H 09/18 09 DC 09/18 Dextrose/Water 100 ML IV 0938 Duloxetine HCl 60 MG DAILY 09/15 899 AC 09/19 PO 0855 Furosemide 20 MG DAILY 09/15 899 AC 09/19 PO 0856 Insulin Aspart 0 TIDAC/HS 09/18 1700 AC 09/19 SC 1143 Insulin Aspart 0 TIDAC 09/16 0800 DC 09/18 SC 1209 Insulin Detemir 30 UNITS BID 09/18 0900 AC 09/19 SC 0856 Ipratropium [place] 2.5 ML EVERY 4 HRS/AWAKE 09/15 1200 AC 09/19 INH 1204 Ketorolac 15 MG Q8P PRN 09/15 0145 AC Tromethamine IV Methylprednisolone 40 MG Q12 09/16 2100 DC 09/18 IV 0938 Metoprolol Tartrate 100 MG BID 09/19 2100 AC PO Metoprolol Tartrate 50 MG BID 09/18 2100 DC 09/19 PO 0856 Nystatin 5 ML 4 TIMES/DAY 09/18 1700 AC 09/19 PO 0857 Omeprazole 20 MG BID 09/15 899 AC 09/19 PO 0855 Potassium Chloride 40 MEQ ONCE ONE 09/19 729 DC 09/19 PO 09/19 730 0855 Prednisone 40 MG DAILY 09/19 0800 AC 09/19 PO 08 Tamsulosin HCl 0.4 MG QPM 09/15 2100 AC 09/18 PO 2030 Impression/Plan Impression/Problem List Impression: 72-year-old gentleman with past medical history of COPD on 2-3 L of home oxygen, hypertension, diabetes mellitus, rheumatoid arthritis on methotrexate, atrial flutter/fibrillation on Eliquis, obstructive sleep apnea on CPAP, diastolic heart failure (prior hx EF 55%). He was brought in by ambulance with complaint of disorientation and lethargy. He is currently being evaluated and treated for following conditions Respiratory #Acute on chronic hypoxemic hypercapnic respiratory failure Patient has history of COPD on 2-3 L and was found to have oxygen saturation of 70%. He was disoriented and lethargic on presentation and was placed on BiPAP. -Patient is more awake and alert -Will repeat anther ABG;s Continue BiPAP -CT chest showed mild centrilobular emphysema, no evidence of acute pneumonia or pulmonary edema, small pleural effusion right more than left #Acute COPD exacerbation Patient was hypoxic and hypercapnic on admission. He is on 2-3 L of oxygen at home. Also on chronic steroids 20mg prednisone daily. -TRC -DC IV Solu-Medrol Continue p.o. prednisone 40 mg daily -Continue Symbicort (LABA and ICS) -Continue BiPAP #Hx of BOB -Continue Bipap for now Infection #Possible hospital-acquired pneumonia Was ruled out by CT chest On admission chest x-ray was positive for bibasilar opacification given frequent hospitalization and recent discharge patient was started on vancomycin, ceftazidime and azithromycin for broad coverage. He had a white count on presentation and mild hypothermia. It should be noted that patient is on 20 mg prednisone home dose of steroids. So white count might be representation of that rather than infection -Patient was afebrile, WBC trended down -Lactic acid WNL -Urine strep and Legionella negative Renal function was positive for VRE -Blood cultures negative - Vanco and ceftaz were discontinued Continue azithromycin for COPD exacerbation Cardiology #History of atrial flutter/fibrillation Currently his heart rate in the [id number] Patient was still tachycardic in the [id number] today after he makes it on Cardizem drip at the rate of 15 and he received loading dose of digoxin 0.5 mg followed by 2 doses of 0.25 overnight Digoxin level this morning was 3.1 Continue to hold digoxin Restart p.o. Cardizem at 30 every 6 Wean off Cardizem drip Increase metoprolol to 100 twice daily (home dose) -Continue Eliquis Continue to follow cardiology recommended #History of diastolic heart failure proBNP 845. Chest x-ray showed pulmonary congestion without overt pulmonary edema -Continue home dose of Lasix, statin and metoprolol -Lasix 40 mg IV once #History of hypertension Continue home medication (Lasix metoprolol and Cardizem) Hematology #Leukocytosis WBC this a.m. is 11.6. It should be noted that patient is on 20 mg prednisone home dose of steroids currently on IV Solu-Medrol which can be the cause of his leukocytosis. -Continue to monitor #Macrocytic anemia H/H stable. Elevated MCH and MCV possible etiology B12 or folate deficiency -Continue to monitor -We will check B12 and folate levels, iron, TIBC, ferritin -Of note patient is on vitamin B12 injections, vegetarian? Metabolic #Respiratory acidosis and compensatory metabolic alkalosis Improving ABG significant for hypercapnia resulting in respiratory acidosis and elevated bicarb up to 46 on presentation represents compensatory metabolic alkalosis -Continue BiPAP #Diabetes mellitus Blood sugar is better controlled today in the 200s range -Fingersticks 3 times daily/at bedtime -Continue the current insulin sliding scale -Long-acting insulin 30 units twice daily (will substitute Levemir for Lantus) his home dose Endocrinology recommendation appreciate Musculoskeletal #History of gout -Continue allopurinol #Hx of Rheumatoid Arthritis -Continue methotrexate and steroids #Patient takes aldronate every 70 mg, should be continued during his stay #Back pain -Hold oxycodone for now in setting of confusion Alimantary -Continue omeprazole Nephrology Creatinine baseline #BPH -Continue tamsulosin Neurology #Toxic/metabolic encephalopathy Improving after his ABG improved on the BiPAP and after discontinuing the Ativan drip CT head did not show any acute lesions -Continue BiPAP DVT prophylaxis with Alps and Eliquis Full code Problem List: 1. Dyspnea 2. COPD (chronic obstructive pulmonary disease) 3. Tachycardia Pain Ratin Tomorrow's Labs & Rationales: CBC ICU bundle Plan DVT/Prophylaxis: mechanical, pharmacological Sebastian Blake MD 09/19/17 0851: Attending MD Review Statement Attending Sign Off Attending Cosign Statement: I have: examined this patient, reviewed avalbl EMR data, personally reviewd images, discussd w/resident/PA/POULTRY RAISER, discussed mgmt plan w/dante, discussed mgmt plan w/CM, discussed mgmt plan w/pt, agreed w/resident/PA/POULTRY RAISER, amended to note. Other Findings: I, Sebastian Blake M.D. have examined this patient, reviewed available EMR data, personally reviewed images, discussed with resident/PA/POULTRY RAISER, discussed management plan with housestaff and nursing staff, discussed managment plan all of healthcare providers, discussed management plan with patient and/or family, agreed with resident/PA/POULTRY RAISER. The past history and parts of the chart have been autopopulated. Impression 72 year old man * acute on chronic hypoxemic and hypercarbic respiratory failure * Acute exacerbation of COPD * resolved confusion * a.fib/flutter - on Eliquis * DM - Insulin dependent * RA - chronic pain Plan Respiratory -nocturnal NIV if pt agreeable -maintain spo2 >92% -aspiration precautions -TRC/Nebs -taper steroids [id number], [id number], [id number], remain on 10mg ID -zithromax course - no evidence of pneumonia CVS -metoprolol added -currently on Eliquis -hemodynamic monitoring - currently on cardizem -continue lasix Heme -CBC monitoring Metabolic -ins/outs -continue lasix Alimentary -diet Neuro -hold sedatives DVT prophylaxis at all times (On Eliquis) Full Code TTS 30 minutes Can downgrade to telemetry for a.fib monitoring Of note - if patient requires any urethral catheterization this is to be done only with urology per patient request
--- NOTE | 2017-09-19 09:04 | PN- Diabetes ---
Assessment/Plan Diabetes Assessment: 72 y/o male with hx of COPD on home oxygen and predniosne 20 mg daily chronically, diabetes type 2 on Lantus 30 units twice a day only as outpatient as per Dr. Zee ( HbA1c was 8.5% in 05/2017). He was admitted for acute hypoxemic hypercapnic respiratory failure and was put on Solumedrol. His glucose levels were in the 300s and 400s. Starting today, he will be on predniosne 40 mg daily. Currently he is on Levemir 30 units twice a day; Novolog coverage before meals and Novolog coverage at bedtime. Before Each Meal: Bolus Insulin: Novolog < 80 mg/dl: no coverage 80-100 mg/dl: 8 units 101-120 mg/dl: 8 units 121-150 mg/dl: 8 units 151-200 mg/dl: 10 units 201-250 mg/dl: 12 units 251-300 mg/dl: 14 units 301-350 mg/dl: 16 units 351-400 mg/dl: 18 units > 400 mg/dl: 20 units Bedtime: Bolus Insulin: Novolog < 80 mg/dl: no coverage 80-100 mg/dl: no coverage 101-120 mg/dl: no coverage 121-150 mg/dl: no coverage 151-200 mg/dl: no coverage 201-250 mg/dl: no coverage 251-300 mg/dl: no coverage 301-350 mg/dl: 4 units 351-400 mg/dl: 5 units > 400 mg/dl: 6 units His FSGs were 472, 272 and 262. But he is hesitant to take more insulin. Plan: continue the current insulin regimen for now; monitor FSGs. will follow. Subjective Subjective: His breathing has been better. Objective Last 24 Hrs of Vital Signs/I&O Vital Signs Date Time Temp Pulse Resp B/P B/P Pulse O2 O2 Flow FiO2 Mean Ox Delivery Rate 09/19 0621 72 97 09/19 0400 96 BIPAP 40% 09/20 399 96.1 94 25 120/70 96 BIPAP 40% 09/19 0332 83 96 09/19 0033 95 98 09/19 0000 95 BIPAP 40% 09/19 0000 96.3 94 26 120/80 95 BIPAP 40% 09/18 2242 118 95 09/181 126 106/62 09/18 2030 126 106/62 09/19 1999 95 Nasal 4.0L Cannula 09/19 1999 97.8 118 26 106/62 96 Nasal 4.0L Cannula 09/18 1730 95 Nasal 4.0L Cannula 09/18 1600 96 Nasal 4.0L Cannula 09/18 1600 97.1 91 28 110/60 96 Nasal 4.0L Cannula 09/18 1210 130 118/71 09/18 1210 93 Nasal 4.0L Cannula 09/18 1200 93 Nasal 4.0L Cannula 09/18 1200 98.5 130 25 104/60 93 Nasal 4.0L Cannula Intake & Output 09/19 1600 09/19 0809/19 0000 Intake Total 73 569.6 Output Total 800 Balance 73 -230.4 Intake, IV 73 89.6 Intake, Oral 0 480 Number 0 1 Bowel Movements Output, Urine 800 Patient 267 lb Weight Weight Bed scale Measurement Method Findings Pertinent Lab/Kiel Results: Laboratory Tests 09/19 09/19 0600 0335 Chemistry Sodium (137 - 145 mmol/L) 134 L Potassium (3.5 - 5.1 mmol/L) 3.8 Chloride (98 - 107 mmol/L) 92 L Carbon Dioxide (22 - 30 mmol/L) 36 H Anion Gap (5 - 16) 6 BUN (9 - 20 mg/dL) 31 H Creatinine (0.7 - 1.2 mg/dL) 0.8 Estimated GFR (>60 ml/min) > 60 Glucose (65 - 99 mg/dL) 212 H Calcium (8.4 - 10.2 mg/dL) 8.8 Phosphorus (2.5 - 4.5 mg/dL) 2.8 Magnesium (1.6 - 2.3 mg/dL) 2.2 Total Bilirubin (0.2 - 1.3 mg/dL) 0.7 AST (17 - 59 U/L) 19 ALT (21 - 72 U/L) 67 Albumin (3.5 - 5.0 g/dL) 3.1 L Hematology CBC w Diff MAN DIFF ORDERED WBC (4.8 - 10.8 /CUMM) 10.3 RBC (4.70 - 6.10 /CUMM) 3.82 L Hgb (14.0 - 18.0 G/DL) 11.9 L Hct (42 - 52 %) 36.4 L MCV (80.0 - 94.0 FL) 95.2 H MCH (27.0 - 31.0 PG) 31.2 H MCHC (33.0 - 37.0 G/DL) 32.7 L RDW (11.5 - 14.5 %) 17.3 H Plt Count (130 - 400 /CUMM) 111 L MPV (7.4 - 10.4 FL) 8.9 Gran % (42.2 - 75.2 %) 90.0 H Lymphocytes % (20.5 - 51.1 %) 3.1 L Monocytes % (1.7 - 9.3 %) 6.9 Eosinophils % (0 - 5 %) 0 Basophils % (0.0 - 2.0 %) 0 Absolute Granulocytes (1.4 - 6.5 /CUMM) 9.2 H Segmented Neutrophils (42.2 - 75.2 %) 87 H Band Neutrophils (0.0 - 5.0 %) 1 Absolute Lymphocytes (1.2 - 3.4 /CUMM) 0.3 L Lymphocytes (20.5 - 51.1 %) 3 L Monocytes (1.7 - 9.3 %) 9 Absolute Monocytes (0.10 - 0.60 /CUMM) 0.7 H Absolute Eosinophils (0.0 - 0.7 /CUMM) 0 Absolute Basophils (0.0 - 0.2 /CUMM) 0 Platelet Estimate (ADEQUATE) ADEQUATE Polychromasia 1+ Hypochromic-Microcytic 1+ Poikilocytosis 1+ Basophilic Stippling 1+ Ovalocytes 1+ Other Body Source Fld Total RBCs Counted (%) 100 Toxicology Digoxin (0.8 - 2.0 ng/mL) Cancelled 0.9
--- NOTE | 2017-09-19 09:34 | Transfer of Care Summary ---
Hospital Course Course Hospital Course: 72-year-old gentleman with past medical history of COPD on 2-3 L of home oxygen, hypertension, diabetes mellitus, rheumatoid arthritis on methotrexate, atrial flutter/fibrillation on Eliquis, obstructive sleep apnea on CPAP, diastolic heart failure (prior hx EF 55%). He was brought in by ambulance with complaint of disorientation and lethargy. He is currently being evaluated and treated for following conditions Respiratory #Acute on chronic hypoxemic hypercapnic respiratory failure Patient has history of COPD on 2-3 L and was found to have oxygen saturation of 70%. He was disoriented and lethargic on presentation and was placed on BiPAP. ABG significantly improved on BiPAP. chest x-ray was positive for Bibasilar opacification, atelectasis versus pneumonia and vascular congestion without overt pulmonary edema. Initially he was started on broad coverage for hospital- acquired pneumonia with vancomycin and ceftazidime and azithromycin. Patient has frequent hospitalizations with most recent discharge on 08/16/17. However his antibiotics were narrowed down to azithromycin after pneumonia was ruled out by CT chest showed mild centrilobular emphysema, no evidence of acute pneumonia or pulmonary edema, small pleural effusion right more than left. Azithromycin was continued mainly for COPD exacerbation #Acute COPD exacerbation Patient was hypoxic and hypercapnic on admission. He is on 2-3 L of oxygen at home. Also on chronic steroids 20mg prednisone daily. He improved on the BiPAP , initially was treated with IV Solu-Medrol every 12, was switched to prednisone 40 mg p.o. daily on 09/18, TRC, Continue Symbicort (LABA and ICS) #Hx of BOB -Continue Bipap for now Infection #Possible hospital-acquired pneumonia On admission chest x-ray was positive for bibasilar opacification given frequent hospitalization and recent discharge patient was started on vancomycin, ceftazidime and azithromycin for broad coverage. He had a white count on presentation and mild hypothermia. It should be noted that patient is on 20 mg prednisone home dose of steroids. So white count is most likely representation of that rather than infection. Patient was afebrile,Lactic acid WNL, Urine strep and Legionella negative, chest CT ruled out pneumonia. His vancomycin and ceftaz were discontinued. Continued azithromycin Cardiology #History of atrial flutter/fibrillation -Continued home dose of Eliquis On admission his Cardizem and metoprolol were held due to hypotension and features of sepsis. However the Patient heart rate was constantly in the 120s, he was initially started on Cardizem drip. Then when his blood pressure stabilized he was restarted on his home dose of metoprolol. Currently he is started on Cardizem 30 mg every 6 which is have his home dose, goal is to reach back to his home dose and to wean him off Cardizem drip #History of diastolic heart failure proBNP 845. Chest x-ray showed pulmonary congestion without overt pulmonary edema -Continue home dose of Lasix, statin and metoprolol -Can consider additional dose of Lasix if his respiratory status worsens. #History of hypertension Continue home medication (Lasix metoprolol and Cardizem) Hematology #Leukocytosis WBC trended down it should be noted that patient is on 20 mg prednisone home dose of steroids initially he was on IV Solu-Medrol which can be the cause of his leukocytosis. -Continue to monitor #Macrocytic anemia H/H stable. Elevated MCH and MCV possible etiology B12 or folate deficiency -Continue to monitor - B12 and folate levels, iron, TIBC, ferritin were normal -Of note patient is on vitamin B12 injections, vegetarian? Metabolic #Respiratory acidosis and compensatory metabolic alkalosis Improving ABG on admission was significant for hypercapnia resulting in respiratory acidosis and elevated bicarb up to 46 represents compensatory metabolic alkalosis -Continue BiPAP #Diabetes mellitus Blood sugar initially was poorly controlled, most likely due to Solu-Medrol, insulin sliding scale dose was adjusted by endocrinology, and the patient was kept on his home dose of Levemir 30 units twice daily. Blood sugar regularly and proved Musculoskeletal #History of gout -Continue allopurinol #Hx of Rheumatoid Arthritis -Continue methotrexate and steroids #Patient takes aldronate every 70 mg, should be continued during his stay #Back pain -Hold oxycodone for now in setting of confusion Alimantary -Continue omeprazole Nephrology Creatinine baseline #BPH -Continue tamsulosin Neurology #Toxic/metabolic encephalopathy Improving after his ABG improved on the BiPAP and after discontinuing the Ativan drip CT head did not show any acute lesions -Continue BiPAP DVT prophylaxis with Alps and Eliquis Full code Assessment/Plan: Please see above
--- NOTE | 2017-09-19 13:04 | PN- Cardiology ---
Subjective Subjective: The patient remains in atrial flutter with ventricular rate mildly elevated on diltiazem drip. No chest pain. No palpitations. No diaphoresis. Objective Vital Signs and I&Os Vital Signs Date Time Temp Pulse Resp B/P B/P Pulse O2 O2 Flow FiO2 Mean Ox Delivery Rate 09/19 1725 126 90/70 09/19 1626 95 Nasal 4.0L Cannula 09/19 1604 97.9 120 18 100/70 96 Nasal 4.0L Cannula 09/19 1600 96 Nasal 4.0L Cannula 09/19 1357 95 09/19 1200 100 17 107/62 96 Nasal 4.0L Cannula 09/19 0850 94 Nasal 4.0L Cannula 09/19 0800 94 Nasal 4.0L Cannula 09/19 0800 97.9 94 18 90/70 94 Nasal 4.0L Cannula 09/19 0621 72 97 09/19 0400 96 BIPAP 40% 09/19 0400 96.1 94 25 120/70 96 BIPAP 40% 09/19 0332 83 96 09/19 0033 95 98 09/19 0000 95 BIPAP 40% 09/19 0000 96.3 94 26 120/80 95 BIPAP 40% 09/18 2242 118 95 09/18 2031 126 106/62 09/18 2030 126 106/62 09/18 2000 95 Nasal 4.0L Cannula 09/19 1999 97.8 118 26 106/62 96 Nasal 4.0L Cannula Intake & Output 09/19 1600 09/19 0800 09/19 0000 09/18 1600 09/18 0809/18 0000 Intake Total 1120 73 569.6 1330.8 232 850 Output Total 230 594 6870 650 975 Balance 220 73 -230.4 255.8 -418 -125 Intake, IV 320 73 89.6 390.8 112 130 Intake, Oral 800 0 480 940 120 720 Number 1 0 1 1 Bowel Movements Output, Urine 827 457 7182 650 975 Patient 267 lb 266 lb Weight Weight Bed scale Bed scale Measurement Method Physical Exam: Gen: The patient is in no acute distress HEENT: Normal nose, ears, and oropharynx. Pupils equal bilaterally. Conjunctiva normal. Neck: Supple with no JVD, no masses, and no thyromegaly Lungs: Decreased breath sounds with normal respiratory effort Heart: S1, S2, 1/6 systolic mumrmur. 2+ peripheral edema, 2+ pulses in the lower extremities bilaterally Abdomen: Soft, nontender, no masses. No hepatomegaly. No splenomegaly Extremities: No clubbing or cyanosis. Normal muscle strength in the upper and lower extremities. Skin: Normal skin turgor with no skin ulcers or lesions noted. Neuro: Cranial nerves intact. Sensation intact Current Medications: Current Medications Sig/Lakisha Start time Last Medication Dose Route Stop Time Status Admin Albuterol Sulfate 3 ML EVERY 4 HRS/AWAKE 09/16 1199 AC 09/19 INH 1624 Allopurinol 300 MG DAILY 09/15 899 AC 09/19 PO 0856 Apixaban 5 MG BID 09/15 899 AC 09/19 PO 0856 Atorvastatin Calcium 10 MG 1700 09/15 170 AC 09/19 PO 1618 Azithromycin 500 MG DAILY 09/15 899 AC 09/19 Sodium Chloride 250 ML IV 0858 Budesonide/ 2 PUF BID 09/15 899 AC 09/19 Formoterol Fumarate INH 0857 Diltiazem HCl 125 MG Q16H 09/19 2200 DC Dextrose/Water 100 ML IV Diltiazem HCl 125 MG Q13H 09/19 1230 AC Dextrose/Water 100 ML IV Diltiazem HCl 30 MG Q6 09/19 1200 AC 09/19 PO 1725 Diltiazem HCl 125 MG Q20H 09/19 0915 DC Dextrose/Water 100 ML IV Diltiazem HCl 125 MG Q10H 09/18 2030 DC 09/19 Dextrose/Water 100 ML IV 0856 Duloxetine HCl 60 MG DAILY 09/15 899 AC 09/19 PO 0855 Furosemide 20 MG DAILY 09/15 899 AC 09/19 PO 0856 Insulin Aspart 0 TIDAC/HS 09/18 1700 AC 09/19 SC 1618 Insulin Detemir 30 UNITS BID 09/18 899 AC 09/19 SC 0856 Ipratropium [place] 2.5 ML EVERY 4 HRS/AWAKE 09/16 1199 AC 09/19 INH 1624 Ketorolac 15 MG Q8P PRN 09/15 0145 AC Tromethamine IV Metoprolol Tartrate 100 MG BID 09/19 2100 AC PO Metoprolol Tartrate 50 MG BID 09/18 2100 DC 09/19 PO 0856 Nystatin 5 ML 4 TIMES/DAY 09/18 170 AC 09/19 PO 1725 Omeprazole 20 MG BID 09/15 899 AC 09/19 PO 854 Potassium Chloride 40 MEQ ONCE ONE 09/19 729 DC 09/19 PO 09/19 Prednisone 40 MG DAILY 09/19 899 AC 09/19 PO 854 Tamsulosin HCl 0.4 MG QPM 09/15 2099 AC 09/18 PO 2030 Results Last 48 Hrs of Labs/Mics: Laboratory Tests 09/19/17 0600: Digoxin Cancelled 09/19/17 0335: Anion Gap 6, Estimated GFR > 60, Glucose 212 H, Calcium 8.8, Phosphorus 2.8, Magnesium 2.2, Total Bilirubin 0.7, AST 19, ALT 67, Albumin 3.1 L, CBC w Diff MAN DIFF ORDERED, RBC 3.82 L, MCV 95.2 H, MCH 31.2 H, MCHC 32.7 L, RDW 17.3 H, MPV 8.9, Gran % 90.0 H, Lymphocytes % 3.1 L, Monocytes % 6.9, Eosinophils % 0, Basophils % 0, Absolute Granulocytes 9.2 H, Segmented Neutrophils 87 H, Band Neutrophils 1, Absolute Lymphocytes 0.3 L, Lymphocytes 3 L, Monocytes 9, Absolute Monocytes 0.7 H, Absolute Eosinophils 0, Absolute Basophils 0, Platelet Estimate ADEQUATE, Polychromasia 1+, Hypochromic-Microcytic 1+, Poikilocytosis 1+, Basophilic Stippling 1+, Ovalocytes 1+, Fld Total RBCs Counted 100, Digoxin 0.9 09/18/17 0753: Digoxin 3.1 *H 09/18/17 0455: Anion Gap 8, Estimated GFR > 60, Glucose 377 H, Calcium 8.8, Phosphorus 3.3, Magnesium 2.0, Total Bilirubin 0.8, AST 29, ALT 81 H, Albumin 3.2 L Assessment/Plan Assessment/Plan Assessment: 1. COPD exacerbation 2. Atrial flutter, rate not fully controlled 3. Chronic diastolic heart failure Plan: * Increase metoprolol to 100 milligrams p.o. b.i.d. which is the patient's usual outpatient dose. * Start oral diltiazem 30 milligrams p.o. q.6 hours * wean off IV diltiazem if possible * start oral digoxin 0.125 milligrams p.o. daily Continue telemetry? Yes
--- NOTE | 2017-09-20 05:20 | PN- Housestaff ---
Adebayo Baird 09/20/17 0520: Subjective Follow-up For: Acute on chronic hypoxemic hypercapnic respiratory failure Acute COPD exacerbation Hospital Acquired PNA (ruled-out) Toxic metabolic encephalopathy Respiratory acidosis (improving) Tele-Events Since Last Visit: Atrial flutter overnight, with rates 105-124 Subjective: Patient seen seated comfortably at the bedside, his family is here as well. The patient reports that his "has more brains than me" and that she can help with any medical questions, but he reports that he is feeling better since coming from the ICU last night. He denied chest pain, still reports shortness of breath with activity but is on 3L with the nasal cannula and doing OK at rest. He denies headache, dizziness, nausea/vomiting/diarrhea. 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 He feels that the Cymbalta is helping, but maybe not enough. Review of Systems Constitutional: Denies: chills, diaphoresis, fever. Objective Last 24 Hrs of Vital Signs/I&O Vital Signs Date Time Temp Pulse Resp B/P B/P Pulse O2 O2 Flow FiO2 Mean Ox Delivery Rate 09/20 0636 98.1 124 20 120/82 97 Nasal Cannula 09/20 0349 126 18 130/78 09/20 0101 116 92/60 09/20 0100 92/60 09/20 0100 116 18 92/60 09/20 0000 Nasal 4.0L Cannula 09/19 2223 127 18 96/66 09/19 2100 97.2 108 18 82/50 95 Nasal Cannula 09/19 1725 126 90/70 09/19 1626 95 Nasal 4.0L Cannula 09/19 1604 97.9 120 18 100/70 96 Nasal 4.0L Cannula 09/19 1600 96 Nasal 4.0L Cannula 09/19 1357 95 / 1200 100 17 107/62 96 Nasal 4.0L Cannula 09/19 0850 94 Nasal 4.0L Cannula 09/19 0800 94 Nasal 4.0L Cannula 09/19 0800 97.9 94 18 90/70 94 Nasal 4.0L Cannula Intake & Output 09/20 0800 08/ 0000 09/19 1600 Intake Total 504 106 6597 Output Total 800 450 900 Balance -680 150 220 Intake, IV 320 Intake, Oral 120 600 800 Number 1 Bowel Movements Output, Urine 800 450 900 Physical Exam General Appearance: Alert, Oriented X3, Cooperative, No Acute Distress HEENT: Atraumatic, EOMI Cardiovascular: Normal S1, Normal S2, Irregular rhythm, rapid rate Lungs: Mild rales noted at bilateral bases, decreased breath sounds diffusely Abdomen: Normal Bowel Sounds, Soft, No Tenderness Current Medications: Current Medications Sig/Lakisha Start time Last Medication Dose Route Stop Time Status Admin Albuterol Sulfate 3 ML EVERY 4 HRS/AWAKE 09/16 1199 AC 09/19 INH 2028 Allopurinol 300 MG DAILY 09/15 899 AC 09/19 PO 0856 Apixaban 5 MG BID 09/15 899 AC 09/19 PO 2201 Atorvastatin Calcium 10 MG 1700 09/15 170 AC 09/19 PO 1618 Azithromycin 500 MG DAILY 09/15 899 AC 09/19 Sodium Chloride 250 ML IV 0858 Budesonide/ 2 PUF BID 09/15 899 AC 09/19 Formoterol Fumarate INH 220 Digoxin 0.125 MG 1700 09/20 1700 AC PO Diltiazem HCl 125 MG Q16H 09/19 2200 DC Dextrose/Water 100 ML IV Diltiazem HCl 125 MG Q13H 09/19 1230 AC Dextrose/Water 100 ML IV Diltiazem HCl 30 MG Q6 09/19 1200 AC 09/20 PO 0349 Diltiazem HCl 125 MG Q20H 09/19 0815 DC Dextrose/Water 100 ML IV Diltiazem HCl 125 MG Q10H 09/18 2030 DC 09/19 Dextrose/Water 100 ML IV 0856 Duloxetine HCl 60 MG DAILY 09/15 899 AC 09/19 PO 0855 Furosemide 20 MG DAILY 09/15 899 AC 09/19 PO 0856 Insulin Aspart 0 TIDAC/HS 09/18 1700 AC 09/19 SC 220 Insulin Detemir 30 UNITS BID 09/18 899 AC 09/19 SC 220 Ipratropium [place] 2.5 ML EVERY 4 HRS/AWAKE 09/16 1199 AC 09/19 INH 2027 Ketorolac 15 MG Q8P PRN 09/15 0145 AC Tromethamine IV Metoprolol Tartrate 100 MG BID 09/19 2099 AC PO Metoprolol Tartrate 50 MG BID 09/18 2100 DC 09/19 PO 0856 Nystatin 5 ML 4 TIMES/DAY 09/18 1700 AC 09/19 PO 2202 Omeprazole 20 MG BID 09/15 0900 AC 09/19 PO 2203 Potassium Chloride 40 MEQ ONCE ONE 09/19 0730 DC 09/19 PO 09/19 0731 0855 Prednisone 40 MG DAILY 09/19 0900 AC 09/19 PO 0855 Tamsulosin HCl 0.4 MG QPM 09/15 2100 AC 09/20 PO 0100 Last 24 Hrs of Lab/[place] Results Last 24 Hrs of Labs/Mics: Laboratory Tests 09/20/17 0630: Sodium Pending, Potassium Pending, Chloride Pending, Carbon Dioxide Pending, Anion Gap Pending, BUN Pending, Creatinine Pending, BUN/Creatinine Ratio Pending , CBC w Diff Pending, WBC Pending, RBC Pending, Hgb Pending, Hct Pending, MCV Pending, MCH Pending, MCHC Pending, RDW Pending, Plt Count Pending, MPV Pending 09/20/17 0500: Sodium Cancelled, Potassium Cancelled, Chloride Cancelled, Carbon Dioxide Cancelled, Anion Gap Cancelled, BUN Cancelled, Creatinine Cancelled, Glucose Cancelled, Calcium Cancelled, Phosphorus Cancelled, Magnesium Cancelled, Total Bilirubin Cancelled, AST Cancelled, ALT Cancelled, Albumin Cancelled Assessment/Plan Assessment: 72-year-old gentleman with past medical history of COPD on 2-3 L of home oxygen, hypertension, diabetes mellitus, rheumatoid arthritis on methotrexate, atrial flutter/fibrillation on Eliquis, obstructive sleep apnea on CPAP, diastolic heart failure (prior hx EF 55%). He was brought in by ambulance with complaint of disorientation and lethargy. Patient did demonstrate significant lower extremity edema, in the setting of diastolic heart failure. Problems: 1. Acute COPD Exacerbation 2. Acute on chronic hypoxemic and hypercapnic respiratory failure 3. Atrial fibrillation 4. Diabetes mellitus 5. HFpEF Plan: * Continue Eliquis * Tapering steroids from Solu-medrol IV to 40mg prednisone po, 30mg po for two days starting tomorrow, 20mg po afterwards * Furosemide 40mg daily per patient's home dose * Digoxin 0.125 today (monitor K+ with increased Furosemide dose) * Diltiazem drip 5mL/hr * PO Diltiazem 30mg PO Q6H * Metoprolol 100mg PO BID * Albuterol nebulizer Q4H * Atrovent Q4H * Continue Cymbalta * Zithromax 500mg IV * Insulin sliding scale Full Code Eliquis and ALPS DVT PPX Diabetic diet (CC1) Problem List: 1. Acute and chronic respiratory failure with hypoxia 2. History of chronic carbon dioxide retention 3. COPD exacerbation 4. Acute on chronic respiratory failure with hypercapnia 5. COPD (chronic obstructive pulmonary disease) 6. Leg edema 7. Dyspnea Pain Ratin Pain Location: legs Pain Goal: Pain 4 or less Pain Plan: per pathway Tomorrow's Labs & Rationales: cbc & bep Maxwell TINEO,Kathy 09/20/17 1104: Attending MD Review Statement Attending Statement Attending MD Statement: examined this patient, discuss w/resident/PA/CUSTOMER ACCOUNTS ADVISOR, agreed w/resident/PA/CUSTOMER ACCOUNTS ADVISOR, reviewed EMR data (avail), discussed with nursing, discussed with case mgmt, amended to note Attending Assessment/Plan: Patient seen and examined. Transferred out of the ICU overnight. Medical records reviewed. Currently lying in bed and not in any acute distress. He is markedly deconditioned. Denies any chest pain or shortness of breath at rest. Denies any palpitations. On telemetry monitoring he remains in atrial fibrillation with rapid ventricular response. He remains on a Cardizem infusion. On examination heart sounds are regular. He has very poor entry bilaterally with no added sounds. He has 1+ pedal edema bilaterally. Problems: -Acute on chronic hypoxic respiratory failure -COPD exacerbation -Encephalopathy; resolved -Atrial fibrillation/atrial flutter -Insulin-dependent diabetes mellitus -Chronic pain syndrome Plan: -Patient remains with rapid ventricular response. Continue Cardizem infusion. Continue metoprolol and digoxin. Follow-up with the cardiology service regarding further optimization of rate control. -Continue anticoagulation therapy. -Continue bronchodilator therapy. Taper down prednisone therapy by 10 mg every third day. -Blood glucose levels IN the mid 200s-300s. Hopefully glucose levels will improve with taper of his steroid therapy. -Physical therapy evaluation for discharge planning.
[2017-09-20 06:36] VITALS: BP 120/82
[2017-09-20 07:41] LABS: ABSOLUTE BASOPHIL COUNT 0 /CUMM (0.0-0.2); ABSOLUTE EOSINOPHIL COUNT 0 /CUMM (0.0-0.7); ABSOLUTE GRANULOCYTE CT 7.1 /CUMM (1.4-6.5); ABSOLUTE LYMPH COUNT 0.6 /CUMM (1.2-3.4); ABSOLUTE MONOCYTE COUNT 0.6 /CUMM (0.10-0.60); BASOPHIL % 0 % (0.0-2.0); EOSINOPHIL % 0.1 % (0-5); GRANULOCYTE % 85.2 % (42.2-75.2); MEAN CORPUSCULAR HGB 31.6 PG (27.0-31.0); MEAN CORPUSCULAR HGB CONC 33.1 G/DL (33.0-37.0); MEAN CORPUSCULAR VOLUME 95.5 FL (80.0-94.0); MEAN PLATELET VOLUME 8.9 FL (7.4-10.4); PLATELET COUNT 102 /CUMM (130-400); RBC DISTRIBUTION WIDTH 16.7 % (11.5-14.5); RED BLOOD CELL CT 3.87 /CUMM (4.70-6.10); WHITE BLOOD CELL COUNT 8.4 /CUMM (4.8-10.8)
--- NOTE | 2017-09-20 08:15 | PN- Student ---
Subjective Subjective: Hospital day 6: Patient was interviewed and examined at bedside this morning. No acute events reported overnight. Patient was pleasant, appropriately responsive, and in no acute distress. The patient offers no complaints overnight and is hopeful to go home soon. Patient denies fevers, chills, nightsweats, chest pain, palpitations, shortness of breath, abdominal pain, and urinary symptoms. Current Medications Sig/Lakisha Start time Last Medication Dose Route Stop Time Status Admin Albuterol Sulfate 3 ML EVERY 4 HRS/AWAKE 09/16 1199 AC 09/20 INH 0756 Allopurinol 300 MG DAILY 09/15 899 AC 09/19 PO 0856 Apixaban 5 MG BID 09/15 899 AC 09/19 PO 2201 Atorvastatin Calcium 10 MG 1700 09/15 170 AC 09/19 PO 1618 Azithromycin 500 MG DAILY 09/15 899 AC 09/19 Sodium Chloride 250 ML IV 0858 Budesonide/ 2 PUF BID 09/15 899 AC 09/19 Formoterol Fumarate INH 220 Digoxin 0.125 MG 1700 09/20 1700 AC PO Diltiazem HCl 125 MG Q16H 09/19 2200 DC Dextrose/Water 100 ML IV Diltiazem HCl 125 MG Q13H 09/19 1230 AC Dextrose/Water 100 ML IV Diltiazem HCl 30 MG Q6 09/19 1200 AC 09/20 PO 0349 Diltiazem HCl 125 MG Q20H 09/19 0915 DC Dextrose/Water 100 ML IV Diltiazem HCl 125 MG Q10H 09/18 2030 DC 09/19 Dextrose/Water 100 ML IV 0856 Duloxetine HCl 60 MG DAILY 09/15 899 AC 09/19 PO 0855 Furosemide 20 MG DAILY 09/15 899 AC 09/19 PO 0856 Insulin Aspart 0 TIDAC/HS 09/18 1700 AC 09/19 SC 2203 Insulin Detemir 30 UNITS BID 09/18 899 AC 09/19 SC 220 Ipratropium [place] 2.5 ML EVERY 4 HRS/AWAKE 09/16 1199 AC 09/20 INH 0756 Ketorolac 15 MG Q8P PRN 09/15 0145 AC Tromethamine IV Metoprolol Tartrate 100 MG BID 09/19 2099 AC PO Metoprolol Tartrate 50 MG BID 09/18 2100 DC 09/19 PO 0856 Nystatin 5 ML 4 TIMES/DAY 09/18 170 AC 09/19 PO 220 Omeprazole 20 MG BID 09/15 899 AC 09/19 PO 220 Prednisone 40 MG DAILY 09/19 899 AC 09/19 PO 0855 Tamsulosin HCl 0.4 MG QPM 09/15 2099 AC 09/20 PO 0100 Allergies: Sulfa drugs Objective Objective: Vital Signs Date Time Temp Pulse Resp B/P B/P Pulse O2 O2 Flow FiO2 Mean Ox Delivery Rate 09/20 0757 95 Nasal 3.0L Cannula 09/20 0636 98.1 124 20 120/82 97 Nasal Cannula 09/20 0349 126 18 130/78 09/20 0101 116 92/60 09/20 0100 92/60 09/20 0100 116 18 92/60 09/20 0000 Nasal 4.0L Cannula 09/19 2223 127 18 96/66 09/19 2100 97.2 108 18 82/50 95 Nasal Cannula 09/19 1725 126 90/70 09/19 1626 95 Nasal 4.0L Cannula 09/19 1604 97.9 120 18 100/70 96 Nasal 4.0L Cannula 09/19 1600 96 Nasal 4.0L Cannula 09/19 1357 95 09/19 1200 100 17 107/62 96 Nasal 4.0L Cannula 09/19 0850 94 Nasal 4.0L Cannula Intake & Output 09/20 1600 09/20 0809/20 0000 Intake Total 120 600 Output Total 800 450 Balance -680 150 Intake, Oral 120 600 Output, Urine 800 450 Physical Exam General: NAD; Alert and Oriented x3; Appropriately responsive Skin: Warm; Dry; No rashes noted HEENT: Normocephalic; Atraumatic Lungs: Wheezing and decreased breath sounds noted bilaterally with anterior and lateral approach Heart: Normal S1 and S2; Irregular rhythm; No murmurs, gallops, or rubs noted upon ausculatation Abdomen: No visible distention; Normoactive bowel sounds in all four quadrants; Non-tender to palpation in all four quadrants; No masses noted with light and deep palpation Extremities: Normal pulses; No edema noted; No clubbing Neuro: CN II-XII in tact Results Results: Laboratory Tests 09/20 09/20 0630 0500 Chemistry Sodium (137 - 145 mmol/L) 136 L Cancelled Potassium (3.5 - 5.1 mmol/L) 3.9 Cancelled Chloride (98 - 107 mmol/L) 95 L Cancelled Carbon Dioxide (22 - 30 mmol/L) 36 H Cancelled Anion Gap (5 - 16) 5 Cancelled BUN (9 - 20 mg/dL) 31 H Cancelled Creatinine (0.7 - 1.2 mg/dL) 0.7 Cancelled Estimated GFR (>60 ml/min) > 60 BUN/Creatinine Ratio (7 - 25 %) 44.3 H Glucose Cancelled Calcium Cancelled Phosphorus Cancelled Magnesium Cancelled Total Bilirubin Cancelled AST Cancelled ALT Cancelled Albumin Cancelled Hematology CBC w Diff MAN DIFF ORDERED WBC (4.8 - 10.8 /CUMM) 8.4 RBC (4.70 - 6.10 /CUMM) 3.87 L Hgb (14.0 - 18.0 G/DL) 12.2 L Hct (42 - 52 %) 37.0 L MCV (80.0 - 94.0 FL) 95.5 H MCH (27.0 - 31.0 PG) 31.6 H MCHC (33.0 - 37.0 G/DL) 33.1 RDW (11.5 - 14.5 %) 16.7 H Plt Count (130 - 400 /CUMM) 102 L MPV (7.4 - 10.4 FL) 8.9 Gran % (42.2 - 75.2 %) 85.2 H Lymphocytes % (20.5 - 51.1 %) 7.4 L Monocytes % (1.7 - 9.3 %) 7.3 Eosinophils % (0 - 5 %) 0.1 Basophils % (0.0 - 2.0 %) 0 Absolute Granulocytes (1.4 - 6.5 /CUMM) 7.1 H Absolute Lymphocytes (1.2 - 3.4 /CUMM) 0.6 L Absolute Monocytes (0.10 - 0.60 /CUMM) 0.6 Absolute Eosinophils (0.0 - 0.7 /CUMM) 0 Absolute Basophils (0.0 - 0.2 /CUMM) 0 Platelet Estimate (ADEQUATE) DECREASED Polychromasia 1+ Basophilic Stippling 1+ Anisocytosis 1+ CXR 09/14/17 IMPRESSION: 1. Bibasilar opacification, consider atelectasis, aspiration, or pneumonia. 2. Nonspecific bronchovascular prominence could reflect sequela of vascular congestion. No convincing overt pulmonary edema. Head CT 09/16/17 IMPRESSION: There are a few scattered chronic small vessel ischemic changes within the periventricular white matter. No evidence of acute territorial infarct or hemorrhage. Chest CT 09/16/17 IMPRESSION: 1. Mild centrilobular emphysema. 2. No evidence of acute pneumonia or pulmonary edema. 3. Small pleural effusions (right larger than left). Again noted is atelectasis in dependent aspect of right upper and right lower lobe. The small left pleural effusion has increased compared to 09/03/2017 and produces compressive atelectasis in the left lower lobe. Assessment/Plan Assessment: 72 y/o male with a PMH of COPD on 2.5L of home oxygen, hypertension, diabetes mellitus, rheumatoid arthritis on methotrexate, atrial flutter/ fibrillation on Eliquis, obstructive sleep apnea on CPAP, diastolic heart failure (prior hx EF 55%). He was brought in by ambulance with complaint of disorientation and lethargy and is currently being treated for Chronic Hypoxemic Hypercapnic Respiratory failure, Acute COPD exacerbation, Respiratory acidosis, Toxic/Metabolic Encephalopathy, as well as management of his chronic conditions. Plan: Chronic Hypoxemic Hypercapnic Respiratory failure w/ Respiratory Acidosis: 3L Oxygen by Nasal Cannula Continue BIPAP Acute COPD exacerbation: 3L Oxygen by Nasal Cannula Prednisone 40mg PO QD Azithromycin 500mg IV Symbicort 2 puffs BID Inhaled Atrovent 2.5mL Q4hrs Proventil 3mL Q4hrs Toxic/Metabolic Encephalopathy: Continue BIPAP Diabetes Mellitus: Levemir 30units BID SC NovoLOG sliding scale SC Lipitor 10mg PO QD Atrial Fibrillation/Flutter: Eliquis 5mg PO BID Diltiazem 30mg PO Q6hr Diastolic Heart Failure: Digoxin 0.125mg PO QD Furosemide 20mg PO QD Rheumatoid Arthritis: Allpourinol 300mg PO QD Obstructive Sleep Apnea: Continue BIPAP Hypertension: Metoprolol Tartrate 100mg PO BID Esophageal Candidiasis: Nystatin 5mL QID Rinse and Swallow Benign Prostatic Hyperplasia: Tamsulosin 0.4mg PO QD Code Status: Full code Diet: Heart Healthy Diet
--- NOTE | 2017-09-20 08:32 | PN- Pulmonary ---
Subjective HPI/Critical Care Issues: pt seen and examined transferred out of ICU afebrile 95% on 3LNC feels well without palpitations dyspnea is on exertion tachycardia persists Objective Current Medications: Current Medications Sig/Lakisha Start time Last Medication Dose Route Stop Time Status Admin Albuterol Sulfate 3 ML EVERY 4 HRS/AWAKE 09/15 1200 AC 09/20 INH 0756 Allopurinol 300 MG DAILY 09/15 899 AC 09/19 PO 0856 Apixaban 5 MG BID 09/15 899 AC 09/19 PO 2201 Atorvastatin Calcium 10 MG 1700 09/15 1700 AC 09/19 PO 1618 Azithromycin 500 MG DAILY 09/15 899 AC 09/19 Sodium Chloride 250 ML IV 0858 Budesonide/ 2 PUF BID 09/15 899 AC 09/19 Formoterol Fumarate INH 220 Digoxin 0.125 MG 1700 09/20 1700 AC PO Diltiazem HCl 125 MG Q16H 09/19 2200 DC Dextrose/Water 100 ML IV Diltiazem HCl 125 MG Q13H 09/19 1230 AC 09/20 Dextrose/Water 100 ML IV 0828 Diltiazem HCl 30 MG Q6 09/19 1200 AC 09/20 PO 0349 Diltiazem HCl 125 MG Q20H 09/19 0915 DC Dextrose/Water 100 ML IV Diltiazem HCl 125 MG Q10H 09/18 2030 DC 09/19 Dextrose/Water 100 ML IV 0856 Duloxetine HCl 60 MG DAILY 09/15 899 AC 09/19 PO 0855 Furosemide 20 MG DAILY 09/15 899 AC 09/19 PO 0856 Insulin Aspart 0 TIDAC/HS 09/18 1700 AC 09/19 SC 220 Insulin Detemir 30 UNITS BID 09/18 899 AC 09/19 SC 220 Ipratropium [place] 2.5 ML EVERY 4 HRS/AWAKE 09/15 1200 AC 09/20 INH 0756 Ketorolac 15 MG Q8P PRN 09/15 0145 AC Tromethamine IV Metoprolol Tartrate 100 MG BID 09/19 2099 AC PO Metoprolol Tartrate 50 MG BID 09/18 2100 DC 09/19 PO 0856 Nystatin 5 ML 4 TIMES/DAY 09/18 170 AC 09/19 PO 220 Omeprazole 20 MG BID 09/15 899 AC 09/19 PO 2203 Prednisone 40 MG DAILY 09/19 899 AC 09/19 PO 0855 Tamsulosin HCl 0.4 MG QPM 09/15 2099 AC 09/20 PO 0100 Vital Signs & I&O Last 24 Hrs of Vitals and I&O: Vital Signs Date Time Temp Pulse Resp B/P B/P Pulse O2 O2 Flow FiO2 Mean Ox Delivery Rate 09/20 0757 95 Nasal 3.0L Cannula 09/20 0636 98.1 124 20 120/82 97 Nasal Cannula 09/20 0349 126 18 130/78 09/20 0101 116 92/60 09/20 0100 92/60 09/20 0100 116 18 92/60 09/20 0000 Nasal 4.0L Cannula 09/19 2223 127 18 96/66 09/19 2100 97.2 108 18 82/50 95 Nasal Cannula 09/19 1725 126 90/70 09/19 1626 95 Nasal 4.0L Cannula 09/19 1604 97.9 120 18 100/70 96 Nasal 4.0L Cannula 09/19 1600 96 Nasal 4.0L Cannula 09/19 1357 95 09/19 1200 100 17 107/62 96 Nasal 4.0L Cannula 09/19 0850 94 Nasal 4.0L Cannula Intake & Output 09/20 1600 09/20 0800 09/20 0000 Intake Total 120 600 Output Total 800 450 Balance -680 150 Intake, Oral 120 600 Output, Urine 800 450 Exam Other Physical Findings: gen-awake and alert heent-nasal cannula cvs-s1,s2, tachycardic lungs-rare rhonchi, diminished bases abd-soft,bs+ ext-trace edema Results Last 24 Hrs of Lab Results: Laboratory Tests 09/20/17 0630: Sodium Pending, Potassium Pending, Chloride Pending, Carbon Dioxide Pending, Anion Gap Pending, BUN Pending, Creatinine Pending, BUN/Creatinine Ratio Pending , CBC w Diff Pending, WBC Pending, RBC Pending, Hgb Pending, Hct Pending, MCV Pending, MCH Pending, MCHC Pending, RDW Pending, Plt Count Pending, MPV Pending, Gran % Pending, Lymphocytes % Pending, Monocytes % Pending, Eosinophils % Pending, Basophils % Pending, Absolute Granulocytes Pending, Absolute Lymphocytes Pending, Absolute Monocytes Pending, Absolute Eosinophils Pending, Absolute Basophils Pending 09/20/17 0500: Sodium Cancelled, Potassium Cancelled, Chloride Cancelled, Carbon Dioxide Cancelled, Anion Gap Cancelled, BUN Cancelled, Creatinine Cancelled, Glucose Cancelled, Calcium Cancelled, Phosphorus Cancelled, Magnesium Cancelled, Total Bilirubin Cancelled, AST Cancelled, ALT Cancelled, Albumin Cancelled Impression/Plan Impression/Plan Impression/Plan: Sebastian Felipe M.D. have examined this patient, reviewed available EMR data, personally reviewed images, discussed with resident/PA/LEAD QUALITY TECHNICIAN, discussed management plan with housestaff and nursing staff, discussed managment plan all of healthcare providers, discussed management plan with patient and/or family, agreed with resident/PA/LEAD QUALITY TECHNICIAN. The past history and parts of the chart have been autopopulated. Impression 72 year old man * acute on chronic hypoxemic and hypercarbic respiratory failure * Acute exacerbation of COPD * resolved confusion * a.fib/flutter - on Eliquis * DM - Insulin dependent * RA - chronic pain Plan Respiratory -nocturnal NIV if pt agreeable -maintain spo2 >92% -aspiration precautions -TRC/Nebs -taper steroids [id number], [id number], [id number], remain on 10mg ID -zithromax course - no evidence of pneumonia CVS -metoprolol added -currently on Eliquis -hemodynamic monitoring - currently on cardizem -continue lasix Heme -CBC monitoring Metabolic -ins/outs -continue lasix Alimentary -diet Neuro -hold sedatives DVT prophylaxis at all times (On Eliquis) Full Code Of note - if patient requires any urethral catheterization this is to be done only with urology per patient request
--- NOTE | 2017-09-20 10:20 | PN- Diabetes ---
See Addendum Assessment/Plan Diabetes Assessment: 72 y/o male with hx of COPD on home oxygen and predniosne 20 mg daily chronically, diabetes type 2 on Lantus 30 units twice a day only as outpatient as per Dr. Zee ( HbA1c was 8.5% in 05/2017). He was admitted for acute hypoxemic hypercapnic respiratory failure and was put on Solumedrol. His glucose levels were in the 300s and 400s. Since 09/19/2017, he has been on prednisone taper--40 mg daily x 2 days, 30 mg daily x 2 days, etc . Currently he is on Levemir 30 units twice a day; Novolog coverage before meals and Novolog coverage at bedtime. Before Each Meal: Bolus Insulin: Novolog < 80 mg/dl: no coverage 80-100 mg/dl: 8 units 101-120 mg/dl: 8 units 121-150 mg/dl: 8 units 151-200 mg/dl: 10 units 201-250 mg/dl: 12 units 251-300 mg/dl: 14 units 301-350 mg/dl: 16 units 351-400 mg/dl: 18 units > 400 mg/dl: 20 units Bedtime: Bolus Insulin: Novolog < 80 mg/dl: no coverage 80-100 mg/dl: no coverage 101-120 mg/dl: no coverage 121-150 mg/dl: no coverage 151-200 mg/dl: no coverage 201-250 mg/dl: no coverage 251-300 mg/dl: no coverage 301-350 mg/dl: 4 units 351-400 mg/dl: 5 units > 400 mg/dl: 6 units His FSGs were 255, 311 and 259. Plan: 1. continue Levemir 30 units twice a day; 2. increase Novolog coverage before meals; Before Each Meal: Bolus Insulin: Novolog < 80 mg/dl: no coverage 80-100 mg/dl: 10 units 101-120 mg/dl: 10 units 121-150 mg/dl: 10 units 151-200 mg/dl: 13 units 201-250 mg/dl: 16 units 251-300 mg/dl: 18 units 301-350 mg/dl: 20 units 351-400 mg/dl: 22 units > 400 mg/dl: 24 units 3. continue the current Novolog coverage at bedtime; 4. monitor FSGs will follow. Subjective Subjective: His breathing has been better. Objective Last 24 Hrs of Vital Signs/I&O Vital Signs Date Time Temp Pulse Resp B/P B/P Pulse O2 O2 Flow FiO2 Mean Ox Delivery Rate 09/20 0938 124 120/82 09/20 0912 94 Nasal 4.0L Cannula 09/20 0757 95 Nasal 3.0L Cannula 09/20 0636 98.1 124 20 120/82 97 Nasal Cannula 09/20 0349 126 18 130/78 09/20 0101 116 92/60 09/20 0100 92/60 09/20 0100 116 18 92/60 09/20 0000 Nasal 4.0L Cannula 09/19 2223 127 18 96/66 09/19 2100 97.2 108 18 82/50 95 Nasal Cannula 09/19 1725 126 90/70 09/19 1626 95 Nasal 4.0L Cannula 09/19 1604 97.9 120 18 100/70 96 Nasal 4.0L Cannula 09/19 1600 96 Nasal 4.0L Cannula 09/19 1357 95 09/19 1200 100 17 107/62 96 Nasal 4.0L Cannula Intake & Output 09/20 1600 09/20 0800 09/20 0000 Intake Total 120 600 Output Total 800 450 Balance -680 150 Intake, Oral 120 600 Output, Urine 800 450 Findings Pertinent Lab/Kiel Results: Laboratory Tests 09/20 09/20 0630 0500 Chemistry Sodium (137 - 145 mmol/L) 136 L Cancelled Potassium (3.5 - 5.1 mmol/L) 3.9 Cancelled Chloride (98 - 107 mmol/L) 95 L Cancelled Carbon Dioxide (22 - 30 mmol/L) 36 H Cancelled Anion Gap (5 - 16) 5 Cancelled BUN (9 - 20 mg/dL) 31 H Cancelled Creatinine (0.7 - 1.2 mg/dL) 0.7 Cancelled Estimated GFR (>60 ml/min) > 60 BUN/Creatinine Ratio (7 - 25 %) 44.3 H Glucose Cancelled Calcium Cancelled Phosphorus Cancelled Magnesium Cancelled Total Bilirubin Cancelled AST Cancelled ALT Cancelled Albumin Cancelled Hematology CBC w Diff MAN DIFF ORDERED WBC (4.8 - 10.8 /CUMM) 8.4 RBC (4.70 - 6.10 /CUMM) 3.87 L Hgb (14.0 - 18.0 G/DL) 12.2 L Hct (42 - 52 %) 37.0 L MCV (80.0 - 94.0 FL) 95.5 H MCH (27.0 - 31.0 PG) 31.6 H MCHC (33.0 - 37.0 G/DL) 33.1 RDW (11.5 - 14.5 %) 16.7 H Plt Count (130 - 400 /CUMM) 102 L MPV (7.4 - 10.4 FL) 8.9 Gran % (42.2 - 75.2 %) 85.2 H Lymphocytes % (20.5 - 51.1 %) 7.4 L Monocytes % (1.7 - 9.3 %) 7.3 Eosinophils % (0 - 5 %) 0.1 Basophils % (0.0 - 2.0 %) 0 Absolute Granulocytes (1.4 - 6.5 /CUMM) 7.1 H Absolute Lymphocytes (1.2 - 3.4 /CUMM) 0.6 L Absolute Monocytes (0.10 - 0.60 /CUMM) 0.6 Absolute Eosinophils (0.0 - 0.7 /CUMM) 0 Absolute Basophils (0.0 - 0.2 /CUMM) 0 Platelet Estimate (ADEQUATE) DECREASED Polychromasia 1+ Basophilic Stippling 1+ Anisocytosis 1+
--- NOTE | 2017-09-20 11:07 | PN- Cardiology ---
Subjective Subjective: Cardiac status unchanged. Remains in atrial flutter. Rate control reasonably good. Objective Vital Signs and I&Os Vital Signs Date Time Temp Pulse Resp B/P B/P Pulse O2 O2 Flow FiO2 Mean Ox Delivery Rate 09/20 0938 124 120/82 09/20 0912 94 Nasal 4.0L Cannula 09/20 0757 95 Nasal 3.0L Cannula 09/20 0636 98.1 124 20 120/82 97 Nasal Cannula 09/20 0349 126 18 130/78 09/20 0101 116 92/60 09/20 0100 92/60 09/20 0100 116 18 92/60 09/20 0000 Nasal 4.0L Cannula 09/19 2223 127 18 96/66 09/19 2100 97.2 108 18 82/50 95 Nasal Cannula 09/19 1725 126 90/70 09/19 1626 95 Nasal 4.0L Cannula 09/19 1604 97.9 120 18 100/70 96 Nasal 4.0L Cannula 09/19 1600 96 Nasal 4.0L Cannula 09/19 1357 95 09/19 1200 100 17 107/62 96 Nasal 4.0L Cannula Intake & Output 09/20 1600 09/20 0800 09/20 0000 09/19 1600 09/19 0800 09/19 0000 Intake Total 871 398 8297 73 569.6 Output Total 800 450 900 800 Balance -680 150 220 73 -230.4 Intake, IV 320 73 89.6 Intake, Oral 120 600 800 0 480 Number 1 0 1 Bowel Movements Output, Urine 800 450 900 800 Patient 267 lb Weight Weight Bed scale Measurement Method Physical Exam: Gen: The patient is in no acute distress HEENT: Normal nose, ears, and oropharynx. Pupils equal bilaterally. Conjunctiva normal. Neck: Supple with no JVD, no masses, and no thyromegaly Lungs: Decreased breath sounds with normal respiratory effort Heart: S1, S2, 1/6 systolic mumrmur. 2+ peripheral edema, 2+ pulses in the lower extremities bilaterally Abdomen: Soft, nontender, no masses. No hepatomegaly. No splenomegaly Extremities: No clubbing or cyanosis. Normal muscle strength in the upper and lower extremities. Skin: Normal skin turgor with no skin ulcers or lesions noted. Neuro: Cranial nerves intact. Sensation intact Current Medications: Current Medications Sig/Lakisha Start time Last Medication Dose Route Stop Time Status Admin Albuterol Sulfate 3 ML EVERY 4 HRS/AWAKE 09/15 1200 AC 09/20 INH 0756 Allopurinol 300 MG DAILY 09/15 899 AC 09/20 PO 0830 Apixaban 5 MG BID 09/15 899 AC 09/20 PO 0829 Atorvastatin Calcium 10 MG 1700 09/15 1700 AC 09/19 PO 1618 Azithromycin 500 MG DAILY 09/15 899 AC 09/20 Sodium Chloride 250 ML IV 0830 Budesonide/ 2 PUF BID 09/15 09 AC 09/20 Formoterol Fumarate INH 0832 Digoxin 0.125 MG 1700 09/20 1700 AC PO Diltiazem HCl 125 MG Q25H 09/20 1000 AC Dextrose/Water 100 ML IV Diltiazem HCl 125 MG Q16H 09/19 2200 DC Dextrose/Water 100 ML IV Diltiazem HCl 125 MG Q13H 09/19 1230 DC 09/20 Dextrose/Water 100 ML IV 0828 Diltiazem HCl 30 MG Q6 09/19 1200 AC 09/20 PO 0349 Diltiazem HCl 125 MG Q20H 09/19 0915 DC Dextrose/Water 100 ML IV Duloxetine HCl 60 MG DAILY 09/15 899 AC 09/20 PO 0830 Furosemide 20 MG DAILY 09/15 899 AC 09/20 PO 0830 Insulin Aspart 0 TIDAC/HS 09/18 1700 AC 09/20 SC 08 Insulin Detemir 30 UNITS BID 09/18 09 AC 09/20 SC 0829 Ipratropium [place] 2.5 ML EVERY 4 HRS/AWAKE 09/15 1200 AC 09/20 INH 0756 Ketorolac 15 MG Q8P PRN 09/15 0145 AC Tromethamine IV Metoprolol Tartrate 100 MG BID 09/19 2100 AC 09/20 PO 0938 Metoprolol Tartrate 50 MG BID 09/18 2100 DC 09/19 PO 0856 Nystatin 5 ML 4 TIMES/DAY 09/18 1700 AC 09/20 PO 0832 Omeprazole 20 MG BID 09/15 899 AC 09/20 PO 0830 Prednisone 40 MG DAILY 09/19 899 AC 09/20 PO 0830 Tamsulosin HCl 0.4 MG QPM 09/15 2100 AC 09/20 PO 0100 Results Last 48 Hrs of Labs/Mics: Laboratory Tests 09/20/17 0630: Anion Gap 5, Estimated GFR > 60, BUN/Creatinine Ratio 44.3 H, CBC w Diff MAN DIFF ORDERED, RBC 3.87 L, MCV 95.5 H, MCH 31.6 H, MCHC 33.1, RDW 16.7 H, MPV 8.9, Gran % 85.2 H, Lymphocytes % 7.4 L, Monocytes % 7.3, Eosinophils % 0.1, Basophils % 0, Absolute Granulocytes 7.1 H, Absolute Lymphocytes 0.6 L, Absolute Monocytes 0.6, Absolute Eosinophils 0, Absolute Basophils 0, Platelet Estimate DECREASED, Polychromasia 1+, Basophilic Stippling 1+, Anisocytosis 1+ 09/20/17 0500: Sodium Cancelled, Potassium Cancelled, Chloride Cancelled, Carbon Dioxide Cancelled, Anion Gap Cancelled, BUN Cancelled, Creatinine Cancelled, Glucose Cancelled, Calcium Cancelled, Phosphorus Cancelled, Magnesium Cancelled, Total Bilirubin Cancelled, AST Cancelled, ALT Cancelled, Albumin Cancelled 09/19/17 0600: Digoxin Cancelled 09/19/17 0335: Anion Gap 6, Estimated GFR > 60, Glucose 212 H, Calcium 8.8, Phosphorus 2.8, Magnesium 2.2, Total Bilirubin 0.7, AST 19, ALT 67, Albumin 3.1 L, CBC w Diff MAN DIFF ORDERED, RBC 3.82 L, MCV 95.2 H, MCH 31.2 H, MCHC 32.7 L, RDW 17.3 H, MPV 8.9, Gran % 90.0 H, Lymphocytes % 3.1 L, Monocytes % 6.9, Eosinophils % 0, Basophils % 0, Absolute Granulocytes 9.2 H, Segmented Neutrophils 87 H, Band Neutrophils 1, Absolute Lymphocytes 0.3 L, Lymphocytes 3 L, Monocytes 9, Absolute Monocytes 0.7 H, Absolute Eosinophils 0, Absolute Basophils 0, Platelet Estimate ADEQUATE, Polychromasia 1+, Hypochromic-Microcytic 1+, Poikilocytosis 1+, Basophilic Stippling 1+, Ovalocytes 1+, Fld Total RBCs Counted 100, Digoxin 0.9 Assessment/Plan Assessment/Plan Assessment: 1. COPD exacerbation 2. Atrial flutter, rate not fully controlled 3. Chronic diastolic heart failure Plan: * Continue metoprolol 100 milligrams p.o. b.i.d. which is the patient's usual outpatient dose. * Continue current Cardizem dose * Follow-up digoxin level in 4-5 days; probable cardioversion in 1-2 weeks when stable. Continue telemetry? Yes
[2017-09-20 14:18] VITALS: BP 128/90
[2017-09-20 21:43] VITALS: BP 124/74
[2017-09-21] VITALS (7 sets, daily range): BP systolic 92–130; BP diastolic 58–94
[2017-09-21 08:52] LABS: ABSOLUTE BASOPHIL COUNT 0 /CUMM (0.0-0.2); ABSOLUTE EOSINOPHIL COUNT 0 /CUMM (0.0-0.7); ABSOLUTE GRANULOCYTE CT 7.7 /CUMM (1.4-6.5); ABSOLUTE LYMPH COUNT 1.1 /CUMM (1.2-3.4); ABSOLUTE MONOCYTE COUNT 0.7 /CUMM (0.10-0.60); BASOPHIL % 0 % (0.0-2.0); EOSINOPHIL % 0.2 % (0-5); GRANULOCYTE % 80.8 % (42.2-75.2); HEMATOCRIT 37.1 % (42-52); MEAN CORPUSCULAR HGB 31.5 PG (27.0-31.0); MEAN CORPUSCULAR HGB CONC 32.9 G/DL (33.0-37.0); MEAN PLATELET VOLUME 9.2 FL (7.4-10.4); PLATELET COUNT 112 /CUMM (130-400); RED BLOOD CELL CT 3.86 /CUMM (4.70-6.10); WHITE BLOOD CELL COUNT 9.6 /CUMM (4.8-10.8)
--- NOTE | 2017-09-21 10:36 | PN- Diabetes ---
Assessment/Plan Diabetes Assessment: His glucose level went down overnight from 166 to 148 overnight despite that he has not received Novolog at night time. Also prednisone dose will go down in the next few days. Therefore, long acting insulin needs to be reduced. Plan: Please decrease Levemir to 25 units bid. Keep Novolog dose the same. Will follow. Subjective Subjective: His blood glucose has been between 140-200 over the last 24 hours. Starting from this morning, he will start to take 30 mg of prednisone daily, down from 40 mg daily Objective Last 24 Hrs of Vital Signs/I&O Vital Signs Date Time Temp Pulse Resp B/P B/P Pulse O2 O2 Flow FiO2 Mean Ox Delivery Rate 09/21 09 116 112/62 09/21 0853 95 Nasal 2.5L Cannula 09/22 799 94 Nasal 3.0L Cannula 09/21 0659 97.5 80 20 106/58 95 Nasal Cannula 09/21 0531 73 18 106/58 09/21 0123 65 18 92/60 09/21 0046 122 93 09/21 0039 65 18 92/60 97 BIPAP 40% 09/21 0000 97 BIPAP 40% 09/20 2257 124 18 124/74 09/20 2257 124 18 124/74 09/20 2215 124 93 09/20 2143 98.4 125 22 124/74 93 Nasal Cannula 09/20 1721 95 Nasal 3.0L Cannula 09/20 1702 99 128/90 09/20 1637 95 Nasal 3.0L Cannula 09/20 1530 99 128/90 09/20 1419 99 128/90 09/20 1418 98.1 104 20 128/90 93 Nasal Cannula Intake & Output 09/21 1600 09/21 0809/21 0000 Intake Total 60 120 Output Total 350 Balance -290 120 Intake, Oral 60 120 Output, Urine 350 Patient 271 lb Weight Weight Bed scale Measurement Method
--- NOTE | 2017-09-21 11:25 | PN- Housestaff ---
[address] 09/21/17 1125: Subjective Follow-up For: Acute on chronic hypoxemic hypercapnic respiratory failure Acute COPD exacerbation Toxic metabolic encephalopathy Respiratory acidosis Complaints: no complaints Tele-Events Since Last Visit: Atrial flutter with heart rate in 100 Subjective: Patient was seen while he was sitting comfortably at the bedside. Patient reported that he felt much better and asked if he was getting discharged. Following the conversation patient wanted to use the bathroom and had a fall in the bathroom. Regained consciousness after minute. Review of Systems Constitutional: Denies: chills, diaphoresis, fever, malaise, weakness. EENTM: Denies: blurred vision, double vision. Cardiovascular: Denies: chest pain, edema, orthopena, palpitations. Respiratory: Denies: cough, hemoptysis, orthopnea, short of breath, sputum production. Gastrointestinal: Denies: abdominal pain, bloating, constipation, diarrhea, distention. Objective Last 24 Hrs of Vital Signs/I&O Vital Signs Date Time Temp Pulse Resp B/P B/P Pulse O2 O2 Flow FiO2 Mean Ox Delivery Rate 09/21 1436 97.7 67 18 120/62 96 Nasal 5.0L Cannula 09/21 1246 116 128/88 09/21 1235 97.7 118 18 130/94 09/21 1140 97.7 118 18 130/94 93 Nasal 4.0L Cannula 09/21 0923 116 112/62 09/21 0923 116 112/62 09/21 0853 95 Nasal 2.5L Cannula 09/21 0800 94 Nasal 3.0L Cannula 09/21 0659 97.5 80 20 106/58 95 Nasal Cannula 09/21 0531 73 18 106/58 09/21 0123 65 18 92/60 09/21 0046 122 93 09/21 0039 65 18 92/60 97 BIPAP 40% 09/21 0000 97 BIPAP 40% 09/20 2257 124 18 124/74 09/20 2257 124 18 124/74 09/20 2215 124 93 09/20 2143 98.4 125 22 124/74 93 Nasal Cannula 09/20 1721 95 Nasal 3.0L Cannula 09/20 1702 99 128/90 09/20 1637 95 Nasal 3.0L Cannula 09/20 1530 99 128/90 Intake & Output 09/21 1600 09/21 0809/21 0000 Intake Total 1060 60 120 Output Total 450 350 Balance 610 -290 120 Intake, IV 260 Intake, Oral 800 60 120 Number 1 Bowel Movements Output, Urine 450 350 Patient 271 lb Weight Weight Bed scale Measurement Method Physical Exam General Appearance: Alert, Oriented X3, Cooperative, No Acute Distress Cardiovascular: Regular Rate, No Murmurs Lungs: Clear to Auscultation, Normal Air Movement Abdomen: Normal Bowel Sounds, Soft, No Tenderness, No Hepatospenomegaly, No Masses Neurological: Normal Speech, Strength at 5/5 X4 Ext, Normal Tone, Sensation Intact Current Medications: Current Medications Sig/Lakisha Start time Last Medication Dose Route Stop Time Status Admin Albuterol Sulfate 3 ML EVERY 4 HRS/AWAKE 09/16 1199 AC 09/21 INH 1206 Allopurinol 300 MG DAILY 09/15 899 AC 09/21 PO 0922 Apixaban 5 MG BID 09/15 899 AC 09/21 PO 0922 Atorvastatin Calcium 10 MG 1700 09/15 1700 AC 09/20 PO 1530 Azithromycin 500 MG DAILY 09/15 899 AC 09/21 Sodium Chloride 250 ML IV 0917 Budesonide/ 2 PUF BID 09/15 899 AC 09/21 Formoterol Fumarate INH 0922 Digoxin 0.125 MG 1700 09/20 1700 AC 09/20 PO 1530 Diltiazem HCl 125 MG Q25H 09/20 1000 DC Dextrose/Water 100 ML IV Diltiazem HCl 30 MG Q6 09/19 1200 AC 09/21 PO 1246 Duloxetine HCl 60 MG DAILY 09/15 899 AC 09/21 PO 0922 Furosemide 40 MG DAILY 09/21 899 AC 09/21 PO 0922 Furosemide 20 MG DAILY 09/15 899 DC 09/20 PO 0830 Insulin Aspart 0 TIDAC/HS 09/18 1700 AC 09/21 SC 1245 Insulin Detemir 25 UNITS BID 09/21 2100 AC SC Insulin Detemir 30 UNITS BID 09/18 899 DC 09/21 SC 0803 Ipratropium [place] 2.5 ML EVERY 4 HRS/AWAKE 09/15 1200 AC 09/21 INH 1206 Ketorolac 15 MG Q8P PRN 09/15 0145 AC Tromethamine IV Metoprolol Tartrate 100 MG BID 09/19 2099 AC 09/21 PO 0923 Nystatin 5 ML 4 TIMES/DAY 09/18 1700 AC 09/21 PO 1246 Omeprazole 20 MG BID 09/15 09 AC 09/21 PO 09 Prednisone 10 MG DAILY 09/25 09 AC PO 10/24 900 Prednisone 20 MG DAILY 09/23 899 AC PO 09/24 900 Prednisone 30 MG DAILY 09/21 09 AC 09/21 PO 09/22 900 09 Tamsulosin HCl 0.4 MG QPM 09/15 2100 AC 09/20 PO 2257 Last 24 Hrs of Lab/Kiel Results Last 24 Hrs of Labs/Mics: Laboratory Tests 09/21/17 0630: Anion Gap 2 L, Estimated GFR > 60, BUN/Creatinine Ratio 42.9 H, CBC w Diff NO MAN DIFF REQ, RBC 3.86 L, MCV 96.0 H, MCH 31.5 H, MCHC 32.9 L, RDW 17.0 H, MPV 9.2, Gran % 80.8 H, Lymphocytes % 11.2 L, Monocytes % 7.8, Eosinophils % 0.2, Basophils % 0, Absolute Granulocytes 7.7 H, Absolute Lymphocytes 1.1 L, Absolute Monocytes 0.7 H, Absolute Eosinophils 0, Absolute Basophils 0 Assessment/Plan Assessment: Mr Claudio is a 72 year old man w/ a PMHx of COPD on nightly 2-3 L O2, HTN, Insulin dependent DM, CHF, Gout, RA on DMARD tx, current smoker, paroxysmal Afib , obstructive sleep apnea was sent to the emergency room by his visiting nurse when he was found to be hypotensive and tachycardic. He reported an episode of fall, but did not have any head injury. Patient had a fall in the bathroom at about 11 AM in the morning. EKG did not show any significant changes. Post fall the patient had passed out for a minute but regained consciousness. The response was called. EKG done no significant changes from the previous EKGs. Blood pressure post fall was 130/90mmh. Problem list Problems: 1. Acute COPD Exacerbation 2. Acute on chronic hypoxemic and hypercapnic respiratory failure 3. Atrial fibrillation 4. Diabetes mellitus 5. HFpEF Plan: * Continue Eliquis * Tapering steroids from Solu-medrol IV to 40mg prednisone po, 30mg po for two days starting tomorrow, 20mg po afterwards * Furosemide 40mg daily per patient's home dose * Digoxin 0.125 today (monitor K+ with increased Furosemide dose) * PO Diltiazem 30mg PO Q6H * Metoprolol 100mg PO BID * Albuterol nebulizer Q4H * Atrovent Q4H * Continue Cymbalta * Zithromax 500mg IV * Change Levemir to 25 units twice daily, NovoLog continue the same dose, as per diabetes Problem List: 1. Acute and chronic respiratory failure with hypoxia 2. History of chronic carbon dioxide retention 3. COPD with acute exacerbation Pain Ratin Pain Location: None Pain Goal: Remain pain free Pain Plan: None Tomorrow's Labs & Rationales: cbc, bmp, mg, po4 Narda Khan MD 09/21/17 3186: Attending MD Review Statement Attending Statement Attending MD Statement: examined this patient, discuss w/resident/PA/OVERHEAD CRANE OPERATOR, agreed w/resident/PA/OVERHEAD CRANE OPERATOR, reviewed EMR data (avail) Attending Assessment/Plan: Patient was doing well overall this morning, reporting improved breathing, though still wheezing. Late morning had a syncopal event in bathroom, caught by nurse and attended to by myself. Patient slumped over when walking to the bathroom and lost consciousness for about 30 seconds. He had loss of continence during this episode. He was weak afterward and BP was slightly low. He recovered within 10 minutes. He appears to have significant LE edema. Lungs with mild wheezing. Plan - Continue on telemetry - Prednisone taper - Would increase Lasix to 40mg PO BID - I/O, daily weights - Pulmonary and cardiology consults - Continue home medications - DVT PPx
--- NOTE | 2017-09-21 14:27 | Event Note ---
Event Note Event Note: 72 year old man w/ a PMHx of COPD on nightly 2-3 L O2, HTN, Insulin dependent DM , CHF, Gout, RA on DMARD tx, current smoker, paroxysmal Afib, obstructive sleep apnea admitted for COPD exacerbation, had rapid response called at 1100, for a witnessed syncopal episode. The patient was complaining of stomach pain and nausea and had a witnessed fall in the bathroom was assisted to the floor by nursing. He had a loss of consciousness for less than 20 seconds with bowel and bladder incontinence. His vital signs were Temp 97.7 HR 118, BP 130/94, SpO2 92% on 4L and blood glucose 230. This was most likely vasovagal synope, his EKG showed atrial flutter but no new changes around the time of syncope. The patient was returned to bed and there were no further changes in management.
--- NOTE | 2017-09-21 14:47 | PN- Pulmonary ---
Subjective HPI/Critical Care Issues: pt seen and examined had a vasovagal event triggering an STEWARD RACETRACK this am he feels well now at respiratory baseline no cp no cedeno no weakness no n/v/d/c Objective Current Medications: Current Medications Sig/Lakisha Start time Last Medication Dose Route Stop Time Status Admin Albuterol Sulfate 3 ML EVERY 4 HRS/AWAKE 09/15 1200 AC 09/21 INH 1206 Allopurinol 300 MG DAILY 09/15 0900 AC 09/21 PO 0922 Apixaban 5 MG BID 09/15 899 AC 09/21 PO 0922 Atorvastatin Calcium 10 MG 1700 09/15 1700 AC 09/20 PO 1530 Azithromycin 500 MG DAILY 09/15 899 AC 09/21 Sodium Chloride 250 ML IV 0917 Budesonide/ 2 PUF BID 09/15 899 AC 09/21 Formoterol Fumarate INH 09 Digoxin 0.125 MG 1700 09/20 1700 AC 09/20 PO 1530 Diltiazem HCl 125 MG Q25H 09/20 1000 DC Dextrose/Water 100 ML IV Diltiazem HCl 30 MG Q6 09/19 1200 AC 09/21 PO 1246 Duloxetine HCl 60 MG DAILY 09/15 899 AC 09/21 PO 0922 Furosemide 40 MG DAILY 09/21 09 AC 09/21 PO 0922 Furosemide 20 MG DAILY 09/15 09 DC 09/20 PO 0830 Insulin Aspart 0 TIDAC/HS 09/18 1700 AC 09/21 SC 1245 Insulin Detemir 25 UNITS BID 09/21 2100 AC SC Insulin Detemir 30 UNITS BID 09/18 0900 DC 09/21 SC 0803 Ipratropium [place] 2.5 ML EVERY 4 HRS/AWAKE 09/15 1200 AC 09/21 INH 1206 Ketorolac 15 MG Q8P PRN 09/15 0145 AC Tromethamine IV Metoprolol Tartrate 100 MG BID 09/19 2100 AC 09/21 PO 0923 Nystatin 5 ML 4 TIMES/DAY 09/18 1700 AC 09/21 PO 1246 Omeprazole 20 MG BID 09/15 899 AC 09/21 PO 0922 Prednisone 10 MG DAILY 09/25 899 AC PO 10/24 09 Prednisone 20 MG DAILY 09/23 899 AC PO 09/24 900 Prednisone 30 MG DAILY 09/21 899 AC 09/21 PO 09/22 09 09 Tamsulosin HCl 0.4 MG QPM 09/15 2100 AC 09/20 PO 2257 Vital Signs & I&O Last 24 Hrs of Vitals and I&O: Vital Signs Date Time Temp Pulse Resp B/P B/P Pulse O2 O2 Flow FiO2 Mean Ox Delivery Rate 09/21 1436 97.7 67 18 120/62 96 Nasal 5.0L Cannula 09/21 1246 116 128/88 09/21 1235 97.7 118 18 130/94 09/21 1140 97.7 118 18 130/94 93 Nasal 4.0L Cannula 09/21 0923 116 112/62 09/21 0923 116 112/62 09/21 0853 95 Nasal 2.5L Cannula 09/21 0800 94 Nasal 3.0L Cannula 09/21 0659 97.5 80 20 106/58 95 Nasal Cannula 09/21 0531 73 18 106/58 09/21 0123 65 18 92/60 09/21 0046 122 93 09/21 0039 65 18 92/60 97 BIPAP 40% 09/21 0000 97 BIPAP 40% 09/20 2257 124 18 124/74 09/20 2257 124 18 124/74 09/20 2215 124 93 09/20 2143 98.4 125 22 124/74 93 Nasal Cannula 09/20 1721 95 Nasal 3.0L Cannula 09/20 1702 99 128/90 09/20 1637 95 Nasal 3.0L Cannula 09/20 1530 99 128/90 Intake & Output 09/21 1600 09/21 0800 09/21 0000 Intake Total 1060 60 120 Output Total 450 350 Balance 610 -290 120 Intake, IV 260 Intake, Oral 800 60 120 Number 1 Bowel Movements Output, Urine 450 350 Patient 271 lb Weight Weight Bed scale Measurement Method Exam Other Physical Findings: gen-awake and alert heent-nasal cannula cvs-s1,s2, tachycardic lungs-rare rhonchi, diminished bases abd-soft,bs+ ext-trace edema Results Last 24 Hrs of Lab Results: Laboratory Tests 09/21/17 0630: Anion Gap 2 L, Estimated GFR > 60, BUN/Creatinine Ratio 42.9 H, CBC w Diff NO MAN DIFF REQ, RBC 3.86 L, MCV 96.0 H, MCH 31.5 H, MCHC 32.9 L, RDW 17.0 H, MPV 9.2, Gran % 80.8 H, Lymphocytes % 11.2 L, Monocytes % 7.8, Eosinophils % 0.2, Basophils % 0, Absolute Granulocytes 7.7 H, Absolute Lymphocytes 1.1 L, Absolute Monocytes 0.7 H, Absolute Eosinophils 0, Absolute Basophils 0 Impression/Plan Impression/Plan Impression/Plan: Impression 72 year old man * acute on chronic hypoxemic and hypercarbic respiratory failure * Acute exacerbation of COPD * resolved confusion * a.fib/flutter - on Eliquis * DM - Insulin dependent * RA - chronic pain Plan -nocturnal NIV, will need sleep study re-evaluation on an outpatient basis -maintain spo2 >92% -aspiration precautions -TRC/Nebs -taper steroids as ordered -metoprolol added -currently on Eliquis -hemodynamic monitoring - currently on cardizem -continue lasix DVT prophylaxis at all times (On Eliquis) Full Code Of note - if patient requires any urethral catheterization this is to be done only with urology per patient request
[2017-09-22 06:57] VITALS: BP 102/72
--- NOTE | 2017-09-22 08:04 | PN- Housestaff ---
See Addendum Subjective Follow-up For: Acute on chronic hypoxemic hypercapnic respiratory failure Acute COPD exacerbation Toxic metabolic encephalopathy Respiratory acidosis Subjective: Patient seen resting in the bed, he has turned himself onto his side in an attempt to relieve the pain he is complaining of in his rectum. He has a history of hemorrhoids, but reports that this pain is different in nature. He is on 3.5L nasal cannula, with minimal shortness of breath at rest. Denies chest pain, dizziness or syncopal episodes since yesterday. Review of Systems Constitutional: Denies: chills, diaphoresis, fever, malaise. Objective Last 24 Hrs of Vital Signs/I&O Vital Signs Date Time Temp Pulse Resp B/P B/P Pulse O2 O2 Flow FiO2 Mean Ox Delivery Rate 09/22 0755 96 Nasal 3.5L Cannula 09/22 0657 98.0 102 20 102/72 96 Nasal Cannula 09/22 0614 98.0 90 20 102/72 09/22 0037 84 94 09/22 0000 94 BIPAP 3.5L 09/21 2357 97.4 86 18 130/74 09/21 2245 95 95 09/21 2205 97.8 110 20 130/78 95 Nasal Cannula 09/21 2059 100 130/78 09/21 2059 100 130/78 09/21 1703 91 120/70 09/21 1702 100 120/70 09/21 1625 95 Nasal 4.0L Cannula 09/21 1600 Nasal 3.5L Cannula 09/21 1436 97.7 67 18 120/62 96 Nasal 5.0L Cannula 09/21 1246 116 128/88 09/21 1235 97.7 118 18 130/94 09/21 1140 97.7 118 18 130/94 93 Nasal 4.0L Cannula 09/21 0923 116 112/62 09/21 0923 116 112/62 09/21 0853 95 Nasal 2.5L Cannula Intake & Output 09/22 1600 09/22 0800 09/22 0000 Intake Total 100 400 Output Total 380 825 Balance -280 -425 Intake, Oral 100 400 Number 0 Bowel Movements Output, Urine 380 825 Patient 121.761 kg Weight Weight Bed scale Measurement Method Physical Exam General Appearance: Alert, Oriented X3, Cooperative, No Acute Distress Current Medications: Current Medications Sig/Lakisha Start time Last Medication Dose Route Stop Time Status Admin Albuterol Sulfate 3 ML EVERY 4 HRS/AWAKE 09/15 1200 AC 09/22 INH 0747 Allopurinol 300 MG DAILY 09/15 899 AC 09/21 PO 921 Apixaban 5 MG BID 09/15 09 AC 09/21 PO 2056 Atorvastatin Calcium 10 MG 1700 09/15 1700 AC 09/21 PO 1653 Azithromycin 500 MG DAILY 09/15 09 AC 09/21 Sodium Chloride 250 ML IV 0917 Budesonide/ 2 PUF BID 09/15 09 AC 09/21 Formoterol Fumarate INH 2056 Digoxin 0.125 MG 1700 09/20 1700 AC 09/21 PO 170 Diltiazem HCl 30 MG Q6 09/19 1200 AC 09/22 PO 613 Duloxetine HCl 60 MG DAILY 09/15 899 AC 09/21 PO 921 Furosemide 40 MG DAILY 09/21 899 AC 09/21 PO 921 Insulin Aspart 0 TIDAC/HS 09/18 1700 AC 09/21 SC 165 Insulin Detemir 25 UNITS BID 09/21 2099 AC 09/21 SC 210 Insulin Detemir 30 UNITS BID 09/18 0900 DC 09/21 SC 0803 Ipratropium [place] 2.5 ML EVERY 4 HRS/AWAKE 09/15 1200 AC 09/22 INH 0747 Ketorolac 15 MG Q8P PRN 09/15 0145 AC Tromethamine IV Metoprolol Tartrate 100 MG BID 09/19 2100 AC 09/21 PO 2058 Nystatin 5 ML 4 TIMES/DAY 09/18 1700 AC 09/21 PO 2055 Omeprazole 20 MG BID 09/15 899 AC 09/21 PO 2055 Prednisone 10 MG DAILY 09/25 899 AC PO 10/24 900 Prednisone 20 MG DAILY 09/23 09 AC PO 09/24 09 Prednisone 30 MG DAILY 09/21 09 AC 09/21 PO 09/22 09 0927 Sodium Chloride 2 SPRAY Q4P PRN 09/21 1815 AC 09/21 CELSO 2056 Tamsulosin HCl 0.4 MG QPM 09/15 2100 AC 09/21 PO 2058 Last 24 Hrs of Lab/[place] Results Last 24 Hrs of Labs/Mics: Laboratory Tests 09/22/17 0650: Sodium Pending, Potassium Pending, Chloride Pending, Carbon Dioxide Pending, Anion Gap Pending, BUN Pending, Creatinine Pending, BUN/Creatinine Ratio Pending , Magnesium Pending, CBC w Diff Pending, WBC Pending, RBC Pending, Hgb Pending, Hct Pending, MCV Pending, MCH Pending, MCHC Pending, RDW Pending, Plt Count Pending, MPV Pending Assessment/Plan Assessment: Mr Claudio is a 72 year old man w/ a PMHx of COPD on nightly 2-3 L O2, HTN, Insulin dependent DM, CHF, Gout, RA on DMARD tx, current smoker, paroxysmal Afib , obstructive sleep apnea was sent to the emergency room by his visiting nurse when he was found to be hypotensive and tachycardic. He reported an episode of fall, but did not have any head injury. Problems: 1. Acute COPD Exacerbation, on 3.5L nasal cannula (refusing Bi-Pap) 2. Acute on chronic hypoxemic and hypercapnic respiratory failure 3. Atrial fibrillation 4. Diabetes mellitus 5. HFpEF Plan: * Continue Eliquis * Prednisone 30mg today, starting 20mg PO po for two days starting tomorrow, 10mg po afterwards * Furosemide 40mg daily per patient's home dose * Digoxin 0.125 today (monitor K+ while on Furosemide) * PO Diltiazem 30mg PO Q6H * Metoprolol 100mg PO BID * Albuterol nebulizer Q4H * Atrovent Q4H * Continue Cymbalta * Insulin updated per endocrinology consult Full Code Patient on Eliquis for anticoagulation Problem List: 1. Dyspnea 2. Leg edema 3. COPD (chronic obstructive pulmonary disease) 4. CHF (congestive heart failure) 5. Atrial fibrillation 6. Physical deconditioning 7. Acute on chronic respiratory failure with hypercapnia 8. Diabetes Pain Ratin Pain Location: Rectum Pain Goal: Pain 4 or less Pain Plan: per pathway Tomorrow's Labs & Rationales: CBC & BEP CBC & BEP
[2017-09-22 08:07] LABS: ABSOLUTE BASOPHIL COUNT 0 /CUMM (0.0-0.2); ABSOLUTE EOSINOPHIL COUNT 0.1 /CUMM (0.0-0.7); ABSOLUTE GRANULOCYTE CT 8.4 /CUMM (1.4-6.5); ABSOLUTE LYMPH COUNT 1.3 /CUMM (1.2-3.4); ABSOLUTE MONOCYTE COUNT 0.8 /CUMM (0.10-0.60); BASOPHIL % 0.1 % (0.0-2.0); EOSINOPHIL % 0.5 % (0-5); GRANULOCYTE % 79.3 % (42.2-75.2); HEMATOCRIT 38.6 % (42-52); MEAN CORPUSCULAR HGB 31.1 PG (27.0-31.0); MEAN CORPUSCULAR HGB CONC 32.4 G/DL (33.0-37.0); MEAN CORPUSCULAR VOLUME 95.8 FL (80.0-94.0); MEAN PLATELET VOLUME 8.9 FL (7.4-10.4); PLATELET COUNT 112 /CUMM (130-400); RBC DISTRIBUTION WIDTH 17.3 % (11.5-14.5); RED BLOOD CELL CT 4.04 /CUMM (4.70-6.10); WHITE BLOOD CELL COUNT 10.5 /CUMM (4.8-10.8)
--- NOTE | 2017-09-22 10:35 | PN- Pulmonary ---
Subjective HPI/Critical Care Issues: pt seen and examined no further vasovagal events he feels well now at respiratory baseline no cp, no cedeno, no weakness, no n/v/d/c Objective Current Medications: Current Medications Sig/Lakisha Start time Last Medication Dose Route Stop Time Status Admin Albuterol Sulfate 3 ML EVERY 4 HRS/AWAKE 09/15 1200 AC 09/22 INH 0747 Allopurinol 300 MG DAILY 09/15 899 AC 09/22 PO 0916 Apixaban 5 MG BID 09/15 09 AC 09/22 PO 0915 Atorvastatin Calcium 10 MG 1700 09/15 1700 AC 09/21 PO 1653 Azithromycin 500 MG DAILY 09/15 899 AC 09/22 Sodium Chloride 250 ML IV 0916 Budesonide/ 2 PUF BID 09/15 899 AC 09/22 Formoterol Fumarate INH 09 Digoxin 0.125 MG 1700 09/20 1700 AC 09/21 PO 1702 Diltiazem HCl 30 MG Q6 09/19 1200 AC 09/22 PO 0614 Duloxetine HCl 60 MG DAILY 09/15 899 AC 09/22 PO 0915 Furosemide 40 MG BID 09/22 2099 AC PO Furosemide 40 MG DAILY 09/21 899 DC 09/22 PO 0915 Insulin Aspart 0 TIDAC/HS 09/18 1700 AC 09/21 SC 1659 Insulin Detemir 25 UNITS BID 09/21 2100 AC 09/22 SC 0925 Insulin Detemir 30 UNITS BID 09/18 09 DC 09/21 SC 0803 Ipratropium [place] 2.5 ML EVERY 4 HRS/AWAKE 09/15 1200 AC 09/22 INH 0747 Ketorolac 15 MG Q8P PRN 09/15 0145 AC Tromethamine IV Metoprolol Tartrate 100 MG BID 09/19 2100 AC 09/22 PO 0915 Nystatin 5 ML 4 TIMES/DAY 09/18 1700 AC 09/22 PO 0916 Omeprazole 20 MG BID 09/15 899 AC 09/22 PO 0916 Prednisone 10 MG DAILY 09/25 899 AC PO 10/24 09 Prednisone 20 MG DAILY 09/23 09 AC PO 09/24 09 Prednisone 30 MG DAILY 09/21 09 DC 09/22 PO 09/22 0901 0915 Sodium Chloride 2 SPRAY Q4P PRN 09/21 1815 AC 09/21 CELSO 2056 Tamsulosin HCl 0.4 MG QPM 09/15 2099 AC 09/21 PO 2058 Vital Signs & I&O Last 24 Hrs of Vitals and I&O: Vital Signs Date Time Temp Pulse Resp B/P B/P Pulse O2 O2 Flow FiO2 Mean Ox Delivery Rate 09/22 0915 64 130/60 09/22 0755 96 Nasal 3.5L Cannula 09/22 0657 98.0 102 20 102/72 96 Nasal Cannula 09/22 0614 98.0 90 20 102/72 09/22 0037 84 94 09/22 0000 94 BIPAP 3.5L 09/21 2357 97.4 86 18 130/74 09/21 2245 95 95 09/21 2205 97.8 110 20 130/78 95 Nasal Cannula 09/21 2058 100 130/78 09/21 2058 100 130/78 09/21 1703 91 120/70 09/21 1702 100 120/70 09/21 1625 95 Nasal 4.0L Cannula 09/21 1600 Nasal 3.5L Cannula 09/21 1436 97.7 67 18 120/62 96 Nasal 5.0L Cannula 09/21 1246 116 128/88 09/21 1235 97.7 118 18 130/94 09/21 1140 97.7 118 18 130/94 93 Nasal 4.0L Cannula Intake & Output 09/22 1600 09/22 0800 09/22 0000 Intake Total 100 400 Output Total 380 825 Balance -280 -425 Intake, Oral 100 400 Number 0 Bowel Movements Output, Urine 380 825 Patient 268 lb Weight Weight Bed scale Measurement Method Exam Other Physical Findings: gen-awake and alert heent-nasal cannula cvs-s1,s2, tachycardic lungs-rare rhonchi, diminished bases abd-soft,bs+ ext-trace edema Results Last 24 Hrs of Lab Results: Laboratory Tests 09/22/17 0650: Anion Gap 4 L, Estimated GFR > 60, BUN/Creatinine Ratio 37.1 H, Magnesium 2.1, CBC w Diff NO MAN DIFF REQ, RBC 4.04 L, MCV 95.8 H, MCH 31.1 H, MCHC 32.4 L, RDW 17.3 H, MPV 8.9, Gran % 79.3 H, Lymphocytes % 12.2 L, Monocytes % 7.9, Eosinophils % 0.5, Basophils % 0.1, Absolute Granulocytes 8.4 H, Absolute Lymphocytes 1.3, Absolute Monocytes 0.8 H, Absolute Eosinophils 0.1, Absolute Basophils 0 Impression/Plan Impression/Plan Impression/Plan: Impression 72 year old man * stable resolved acute phase, now with chronic hypoxemic and hypercarbic respiratory failure * IMPROVED Acute exacerbation of COPD * a.fib/flutter - on Eliquis * DM - Insulin dependent * RA - chronic pain Plan -nocturnal NIV, will need sleep study re-evaluation on an outpatient basis -maintain spo2 >92% -aspiration precautions -TRC/Nebs -taper steroids as ordered -continue metoprolol -currently on Eliquis -hemodynamic monitoring - currently on cardizem -continue lasix DVT prophylaxis at all times (On Eliquis) Full Code Of note - if patient requires any urethral catheterization this is to be done only with urology per patient request
--- NOTE | 2017-09-22 10:37 | PN- Diabetes ---
Assessment/Plan Diabetes Assessment: His glucose level went down overnight again on 25 units of Levemir bid. Also prednisone dose will go down in the next few days. Therefore, long acting insulin needs to be reduced. Plan: Please decrease Levemir to 20 units bid. Please see below for Novlog change recommendation Will follow. Inpatient Diabetes Orders Before Each Meal: < 80 mg/dl: 0 80-100 mg/dl: 10 101-120 mg/dl: 10 121-150 mg/dl: 10 151-200 mg/dl: 11 201-250 mg/dl: 12 251-300 mg/dl: 13 301-350 mg/dl: 14 351-400 mg/dl: 15 > 400 mg/dl: 16 Bedtime: < 80 mg/dl: 0 80-100 mg/dl: 0 101-120 mg/dl: 0 121-150 mg/dl: 0 151-200 mg/dl: 1 201-250 mg/dl: 2 251-300 mg/dl: 3 301-350 mg/dl: 4 351-400 mg/dl: 5 > 400 mg/dl: 6 Subjective Subjective: His BG has declined overnight again despite reduced dose of Levemir Objective Last 24 Hrs of Vital Signs/I&O Vital Signs Date Time Temp Pulse Resp B/P B/P Pulse O2 O2 Flow FiO2 Mean Ox Delivery Rate 09/22 0915 64 130/60 09/22 0755 96 Nasal 3.5L Cannula 09/22 0657 98.0 102 20 102/72 96 Nasal Cannula 09/22 0614 98.0 90 20 102/72 09/22 0037 84 94 09/22 0000 94 BIPAP 3.5L 09/21 2357 97.4 86 18 130/74 09/21 2245 95 95 09/21 2205 97.8 110 20 130/78 95 Nasal Cannula 09/21 2059 100 130/78 09/21 2059 100 130/78 09/21 1703 91 120/70 09/21 1702 100 120/70 09/21 1625 95 Nasal 4.0L Cannula 09/21 1600 Nasal 3.5L Cannula 09/21 1436 97.7 67 18 120/62 96 Nasal 5.0L Cannula 09/21 1246 116 128/88 09/21 1235 97.7 118 18 130/94 09/21 1140 97.7 118 18 130/94 93 Nasal 4.0L Cannula Intake & Output 09/22 1600 09/22 0800 09/22 0000 Intake Total 100 400 Output Total 380 825 Balance -280 -425 Intake, Oral 100 400 Number 0 Bowel Movements Output, Urine 380 825 Patient 268 lb Weight Weight Bed scale Measurement Method
[2017-09-22 14:42] VITALS: BP 114/76
--- NOTE | 2017-09-22 19:13 | PN- Cardiology ---
Subjective Subjective: No acute events. Remains in atrial flutter with HR 80-90, transiently rising ad 120. Objective Vital Signs and I&Os Vital Signs Date Time Temp Pulse Resp B/P B/P Pulse O2 O2 Flow FiO2 Mean Ox Delivery Rate 09/22 1815 123 118/80 09/22 1647 118 92/46 09/22 1605 94 Nasal 3.5L Cannula 09/22 1442 98.3 99 18 114/76 97 Nasal Cannula 09/22 0915 64 130/60 09/22 0800 94 Nasal 3.5L Cannula 09/22 0755 96 Nasal 3.5L Cannula 09/22 0657 98.0 102 20 102/72 96 Nasal Cannula 09/22 0614 98.0 90 20 102/72 09/22 0037 84 94 09/22 0000 94 BIPAP 3.5L 09/21 2357 97.4 86 18 130/74 09/21 2245 95 95 09/21 2205 97.8 110 20 130/78 95 Nasal Cannula 09/21 2058 100 130/78 09/21 2058 100 130/78 Intake & Output 09/22 1600 09/22 0800 09/22 0000 09/21 1600 09/21 0809/21 0000 Intake Total 550 374 478 7495 60 120 Output Total 400 380 825 450 350 Balance 150 -280 -425 610 -290 120 Intake, IV 260 Intake, Oral 550 100 400 800 60 120 Number 0 1 Bowel Movements Output, Urine 400 380 825 450 350 Patient 268 lb 271 lb Weight Weight Bed scale Bed scale Measurement Method Physical Exam: General Appearance Alert, appears comfortable. HEENT Mucous Membr. moist/pink Cardiovascular irregular Rate, Normal S1, Normal S2, 1/6 syst. murmur LSB Lungs decreased air entry at bases. No wheezing audible. Abdomen Normal Bowel Sounds, Soft, No Tenderness Neurological alert, moves all extremities spontaneously Extremities good capillary refill , +2 pitting edema Current Medications: Current Medications Sig/Lakisha Start time Last Medication Dose Route Stop Time Status Admin Albuterol Sulfate 3 ML EVERY 4 HRS/AWAKE 09/15 1200 AC 09/22 INH 1605 Allopurinol 300 MG DAILY 09/15 899 AC 09/22 PO 0916 Apixaban 5 MG BID 09/15 899 AC 09/22 PO 0915 Atorvastatin Calcium 10 MG 1700 09/15 1700 AC 09/22 PO 1644 Azithromycin 500 MG DAILY 09/15 899 DC 09/22 Sodium Chloride 250 ML IV 0916 Budesonide/ 2 PUF BID 09/15 0900 AC 09/22 Formoterol Fumarate INH 0916 Digoxin 0.125 MG 1700 09/20 1700 AC 09/22 PO 1647 Diltiazem HCl 30 MG Q6 09/19 1200 AC 09/22 PO 1815 Duloxetine HCl 60 MG DAILY 09/15 09 AC 09/22 PO 0915 Furosemide 40 MG BID 09/22 2100 AC 09/22 PO 1815 Furosemide 40 MG DAILY 09/21 0900 DC 09/22 PO 0915 Insulin Aspart 0 TIDAC/HS 09/18 1700 AC 09/22 SC 1654 Insulin Detemir 20 UNITS BID 09/22 2099 AC SC Insulin Detemir 25 UNITS BID 09/21 2099 DC 09/22 SC 0925 Ipratropium [place] 2.5 ML EVERY 4 HRS/AWAKE 09/15 1200 AC 09/22 INH 1605 Ketorolac 15 MG Q8P PRN 09/15 0145 AC Tromethamine IV Metoprolol Tartrate 100 MG BID 09/19 2100 AC 09/22 PO 0915 Nystatin 5 ML 4 TIMES/DAY 09/18 1700 AC 09/22 PO 1643 Omeprazole 20 MG BID 09/15 0900 AC 09/22 PO 0916 Prednisone 10 MG DAILY 09/25 09 AC PO 10/24 09 Prednisone 20 MG DAILY 09/23 09 AC PO 09/24 09 Prednisone 30 MG DAILY 09/21 0900 DC 09/22 PO 09/22 0901 0915 Sodium Chloride 2 SPRAY Q4P PRN 09/21 181 AC 09/21 CELSO 2056 Tamsulosin HCl 0.4 MG QPM 09/15 2099 AC 09/21 PO 2058 Results Last 48 Hrs of Labs/Mics: Laboratory Tests 09/22/17 0650: Anion Gap 4 L, Estimated GFR > 60, BUN/Creatinine Ratio 37.1 H, Magnesium 2.1, CBC w Diff NO MAN DIFF REQ, RBC 4.04 L, MCV 95.8 H, MCH 31.1 H, MCHC 32.4 L, RDW 17.3 H, MPV 8.9, Gran % 79.3 H, Lymphocytes % 12.2 L, Monocytes % 7.9, Eosinophils % 0.5, Basophils % 0.1, Absolute Granulocytes 8.4 H, Absolute Lymphocytes 1.3, Absolute Monocytes 0.8 H, Absolute Eosinophils 0.1, Absolute Basophils 0 09/21/17 0630: Anion Gap 2 L, Estimated GFR > 60, BUN/Creatinine Ratio 42.9 H, CBC w Diff NO MAN DIFF REQ, RBC 3.86 L, MCV 96.0 H, MCH 31.5 H, MCHC 32.9 L, RDW 17.0 H, MPV 9.2, Gran % 80.8 H, Lymphocytes % 11.2 L, Monocytes % 7.8, Eosinophils % 0.2, Basophils % 0, Absolute Granulocytes 7.7 H, Absolute Lymphocytes 1.1 L, Absolute Monocytes 0.7 H, Absolute Eosinophils 0, Absolute Basophils 0 Assessment/Plan Assessment/Plan 1. COPD exacerbation 2. Atrial flutter, rate not fully controlled 3. Chronic diastolic heart failure. Maintain same dose of cardizem and metoprolol, as rate control is acceptable, and patient is still on steroids. Continue telemetry? Yes
[2017-09-22 22:15] VITALS: BP 110/78
--- NOTE | 2017-09-23 06:39 | PN- Housestaff ---
Adebayo Baird 09/23/17 0638: Subjective Follow-up For: Acute on chronic hypoxemic hypercapnic respiratory failure Acute COPD exacerbation Toxic metabolic encephalopathy Respiratory acidosis Tele-Events Since Last Visit: A flutter up to 124 Subjective: Patient seen resting comfortably in the bed, enjoying pancakes for breakfast. He denied shortness of breath, chest pain, headache, fever/chills. He has complained of weakness when getting up to ambulate, and also c/o rectal pain that has recently started to bother him. Review of Systems Constitutional: Reports: weakness. Denies: chills, diaphoresis, fever. Objective Last 24 Hrs of Vital Signs/I&O Vital Signs Date Time Temp Pulse Resp B/P B/P Pulse O2 O2 Flow FiO2 Mean Ox Delivery Rate 09/23 0643 97.7 71 20 108/ 96 Nasal 3.5L Cannula 09/23 0640 86 108/66 09/23 0034 122 142/88 09/23 0026 123 93 09/23 0000 BIPAP 09/22 2256 124 94 09/22 2215 98.2 125 20 110/78 93 Nasal Cannula 09/22 2119 124 122/90 09/22 2118 124 122/80 09/22 1815 123 118/80 09/22 1647 118 92/46 09/22 1605 94 Nasal 3.5L Cannula 09/22 1600 Nasal 3.5L Cannula 09/22 1442 98.3 99 18 114/76 97 Nasal Cannula 09/22 0915 64 130/60 09/22 0800 94 Nasal 3.5L Cannula 09/22 0755 96 Nasal 3.5L Cannula Intake & Output 09/23 0800 09/23 0000 09/22 1600 Intake Total 300 550 Output Total 700 500 400 Balance -700 -200 150 Intake, Oral 300 550 Number 0 Bowel Movements Output, Urine 700 500 400 Patient 121.619 kg Weight Weight Bed scale Measurement Method Physical Exam General Appearance: Alert, Oriented X3, Cooperative, No Acute Distress Current Medications: Current Medications Sig/Lakisha Start time Last Medication Dose Route Stop Time Status Admin Albuterol Sulfate 3 ML EVERY 4 HRS/AWAKE / 1200 AC 09/22 INH 2009 Allopurinol 300 MG DAILY 09/15 899 AC 09/22 PO 915 Apixaban 5 MG BID 09/15 899 AC 09/22 PO 2116 Atorvastatin Calcium 10 MG 1700 09/15 1700 AC 09/22 PO 1644 Azithromycin 500 MG DAILY 09/15 09 DC 09/22 Sodium Chloride 250 ML IV 0916 Budesonide/ 2 PUF BID 09/15 0900 AC 09/22 Formoterol Fumarate INH 2117 Digoxin 0.125 MG 1700 09/20 1700 AC 09/22 PO 1647 Diltiazem HCl 30 MG Q6 09/19 1200 AC 09/23 PO 0640 Duloxetine HCl 60 MG DAILY 09/15 09 AC 09/22 PO 0915 Furosemide 40 MG BID 09/22 2100 AC 09/22 PO 1815 Furosemide 40 MG DAILY 09/21 0900 DC 09/22 PO 0915 Insulin Aspart 0 TIDAC/HS 09/18 1700 AC 09/22 SC 211 Insulin Detemir 20 UNITS BID 09/22 2100 AC 09/22 SC 2116 Insulin Detemir 25 UNITS BID 09/21 2100 DC 09/22 SC 09 Ipratropium [place] 2.5 ML EVERY 4 HRS/AWAKE 09/15 1200 AC 09/22 INH 2009 Ketorolac 15 MG Q8P PRN 09/15 0145 AC Tromethamine IV Metoprolol Tartrate 100 MG BID 09/19 2100 AC 09/22 PO 211 Nystatin 5 ML 4 TIMES/DAY 09/18 1700 AC 09/22 PO 2116 Omeprazole 20 MG BID 09/15 0900 AC 09/22 PO 2116 Prednisone 10 MG DAILY 09/25 0900 AC PO 10/24 09 Prednisone 20 MG DAILY 09/23 0900 AC PO 09/24 0901 Prednisone 30 MG DAILY 09/21 0900 DC 09/22 PO 09/22 0901 0915 Sodium Chloride 2 SPRAY Q4P PRN 09/21 1815 AC 09/21 CELSO 2056 Tamsulosin HCl 0.4 MG QPM 09/15 2100 AC 09/22 PO 2117 Last 24 Hrs of Lab/[place] Results Last 24 Hrs of Labs/Mics: Laboratory Tests 09/23/17 0655: Sodium Pending, Potassium Pending, Chloride Pending, Carbon Dioxide Pending, Anion Gap Pending, BUN Pending, Creatinine Pending, BUN/Creatinine Ratio Pending , Magnesium Pending, CBC w Diff Pending, WBC Pending, RBC Pending, Hgb Pending, Hct Pending, MCV Pending, MCH Pending, MCHC Pending, RDW Pending, Plt Count Pending, MPV Pending Assessment/Plan Assessment: Mr Claudio is a 72 year old man w/ a PMHx of COPD on nightly 2-3 L O2, HTN, Insulin dependent DM, CHF, Gout, RA on DMARD tx, current smoker, paroxysmal Afib , obstructive sleep apnea was sent to the emergency room by his visiting nurse when he was found to be hypotensive and tachycardic. He reported an episode of fall, but did not have any head injury. Patient c/o rectal pain, but was eating breakfast and refused being interrupted for rectal exam. Problems: 1. Acute COPD Exacerbation, on 3.5L nasal cannula (refusing Bi-Pap) 2. Acute on chronic hypoxemic and hypercapnic respiratory failure 3. Atrial fibrillation 4. Diabetes mellitus 5. HFpEF Plan: * Continue Eliquis * Prednisone 20mg today for one more day, 10mg po afterwards * Furosemide 40mg BID per patient's home dose * Digoxin 0.125 today (monitor K+ while on Furosemide) * PO Diltiazem 30mg PO Q6H * Metoprolol 100mg PO BID * Albuterol nebulizer Q4H * Atrovent Q4H * Continue Cymbalta * Insulin updated per endocrinology consult Full Code Patient on Eliquis for anticoagulation Problem List: 1. COPD (chronic obstructive pulmonary disease) 2. CHF (congestive heart failure) 3. Atrial fibrillation 4. Physical deconditioning 5. Acute on chronic respiratory failure with hypercapnia Pain Ratin Pain Location: none Pain Goal: Pain 4 or less Pain Plan: per pathway Tomorrow's Labs & Rationales: CBC & BEP Alexis TINEO,Priscilla 09/23/17 1041: Attending MD Review Statement Attending Statement Attending MD Statement: examined this patient, discuss w/resident/PA/CHEMICAL LAB TECHNICIAN, agreed w/resident/PA/CHEMICAL LAB TECHNICIAN, reviewed EMR data (avail), discussed with nursing, discussed with case mgmt, reviewed images Attending Assessment/Plan: 72-year-old male well known to me from multiple previous admissions has past medical history of oxygen dependent COPD with chronic respiratory failure, chronic diastolic heart failure and atrial flutter. He was admitted with acute on chronic hypoxemic and hypercapnic respiratory failure. He is doing well and is on a prednisone taper. We are diuresing him with Lasix, controlling his sugars which are out of control on the steroids and managing his heart rate. Patient is adamantly opposed to rehab and will only go home so will need to optimize his medical condition prior to discharge.
[2017-09-23 06:43] VITALS: BP 108/66
--- NOTE | 2017-09-23 08:09 | PN- Student ---
Subjective Subjective: Hospital day 9: Overnight, the telemonitor report showed the patient was in Atrial Flutter with rates from 72-124bpm. Currently in Atrial Flutter . Patient was interviewed and examined at bedside this morning. No acute events reported overnight. However, Patient stated that he fell Saturday while trying to go to the bathroom. Report stated it was a witnessed fall with LOC for less than 20 seconds with bladder and bowel incontinence, which the staff felt was consistent with vasovagal syncope. Patient was pleasant, appropriately responsive, and in no acute distress. The patient offers no complaints overnight and is hopeful to go home soon. Patient denies fevers, chills, nightsweats, chest pain, palpitations, shortness of breath, abdominal pain, and urinary symptoms. Current Medications Sig/Lakisha Start time Last Medication Dose Route Stop Time Status Admin Albuterol Sulfate 3 ML EVERY 4 HRS/AWAKE 09/16 1199 AC 09/22 INH 2009 Allopurinol 300 MG DAILY 09/15 899 AC 09/22 PO 915 Apixaban 5 MG BID 09/15 899 AC 09/22 PO 2116 Atorvastatin Calcium 10 MG 1700 09/15 1700 AC 09/22 PO 1644 Azithromycin 500 MG DAILY 09/15 899 DC 09/22 Sodium Chloride 250 ML IV 09 Budesonide/ 2 PUF BID 09/15 899 AC 09/22 Formoterol Fumarate INH 2116 Digoxin 0.125 MG 0 09/20 1700 AC 09/22 PO 1647 Diltiazem HCl 30 MG Q6 09/19 1200 AC 09/23 PO 0640 Duloxetine HCl 60 MG DAILY 09/15 899 AC 09/22 PO 0915 Furosemide 40 MG BID 09/22 2099 AC 09/22 PO 1815 Furosemide 40 MG DAILY 09/21 09 DC 09/22 PO 0915 Insulin Aspart 0 TIDAC/HS 09/18 1700 AC 09/22 SC 211 Insulin Detemir 20 UNITS BID 09/22 2099 AC 09/22 SC 2116 Insulin Detemir 25 UNITS BID 09/21 2099 DC 09/22 SC 924 Ipratropium [place] 2.5 ML EVERY 4 HRS/AWAKE 09/16 1199 AC 09/22 INH 2009 Ketorolac 15 MG Q8P PRN 09/15 0145 AC Tromethamine IV Metoprolol Tartrate 100 MG BID 09/19 2099 AC 09/22 PO 211 Nystatin 5 ML 4 TIMES/DAY 09/18 1700 AC 09/22 PO 2116 Omeprazole 20 MG BID 09/15 09 AC 09/22 PO 2116 Prednisone 10 MG DAILY 09/25 899 AC PO 10/24 900 Prednisone 20 MG DAILY 09/23 899 AC PO 09/24 900 Prednisone 30 MG DAILY 09/21 0900 DC 09/22 PO 09/22 Sodium Chloride 2 SPRAY Q4P PRN 09/21 181 AC 09/21 CELSO 2056 Tamsulosin HCl 0.4 MG QPM 09/15 2099 AC 09/22 PO 2117 Objective Objective: Vital Signs Date Time Temp Pulse Resp B/P B/P Pulse O2 O2 Flow FiO2 Mean Ox Delivery Rate 09/23 642 97.7 71 20 108/66 96 Nasal 3.5L Cannula 09/23 0640 86 108/66 09/23 0034 122 142/88 09/23 0026 123 93 09/23 0000 BIPAP 09/22 225 124 94 09/22 2214 98.2 125 20 110/78 93 Nasal Cannula 09/22 2118 124 122/90 09/22 2117 124 122/80 09/22 181 123 118/80 09/22 1647 118 92/46 09/22 1605 94 Nasal 3.5L Cannula 09/22 1600 Nasal 3.5L Cannula 09/22 1442 98.3 99 18 114/76 97 Nasal Cannula 09/22 0915 64 130/60 Intake & Output 09/23 1600 09/23 0800 09/23 0000 Intake Total 300 Output Total 700 500 Balance -700 -200 Intake, Oral 300 Number 0 Bowel Movements Output, Urine 700 500 Patient 268 lb Weight Weight Bed scale Measurement Method Physical Exam General: NAD; Alert and Oriented x3; Appropriately responsive Skin: Warm; Dry; No rashes noted; Bruising noted on upper extremities HEENT: Normocephalic; Atraumatic Lungs: Wheezing and decreased breath sounds noted bilaterally with anterior and lateral approach Heart: Normal S1 and S2; Irregular rhythm; No murmurs, gallops, or rubs noted upon ausculatation Abdomen: No visible distention; Normoactive bowel sounds in all four quadrants; Non-tender to palpation in all four quadrants; No masses noted with light and deep palpation Extremities: Normal pulses; Bilateral edema noted in both lower extremities; No clubbing Neuro: CN II-XII in tact Results Results: Laboratory Tests 09/23 0655 Chemistry Sodium (137 - 145 mmol/L) 136 L Potassium (3.5 - 5.1 mmol/L) 3.5 Chloride (98 - 107 mmol/L) 94 L Carbon Dioxide (22 - 30 mmol/L) 38 H Anion Gap (5 - 16) 4 L BUN (9 - 20 mg/dL) 25 H Creatinine (0.7 - 1.2 mg/dL) 0.8 Estimated GFR (>60 ml/min) > 60 BUN/Creatinine Ratio (7 - 25 %) 31.3 H Magnesium (1.6 - 2.3 mg/dL) 2.0 Hematology CBC w Diff NO MAN DIFF REQ WBC (4.8 - 10.8 /CUMM) 11.4 H RBC (4.70 - 6.10 /CUMM) 4.05 L Hgb (14.0 - 18.0 G/DL) 12.5 L Hct (42 - 52 %) 38.9 L MCV (80.0 - 94.0 FL) 96.1 H MCH (27.0 - 31.0 PG) 31.0 MCHC (33.0 - 37.0 G/DL) 32.2 L RDW (11.5 - 14.5 %) 17.3 H Plt Count (130 - 400 /CUMM) 117 L MPV (7.4 - 10.4 FL) 8.8 Gran % (42.2 - 75.2 %) 80.1 H Lymphocytes % (20.5 - 51.1 %) 11.8 L Monocytes % (1.7 - 9.3 %) 7.2 Eosinophils % (0 - 5 %) 0.7 Basophils % (0.0 - 2.0 %) 0.2 Absolute Granulocytes (1.4 - 6.5 /CUMM) 9.2 H Absolute Lymphocytes (1.2 - 3.4 /CUMM) 1.4 Absolute Monocytes (0.10 - 0.60 /CUMM) 0.8 H Absolute Eosinophils (0.0 - 0.7 /CUMM) 0.1 Absolute Basophils (0.0 - 0.2 /CUMM) 0 CXR 09/14/17 IMPRESSION: 1. Bibasilar opacification, consider atelectasis, aspiration, or pneumonia. 2. Nonspecific bronchovascular prominence could reflect sequela of vascular congestion. No convincing overt pulmonary edema. Head CT 09/16/17 IMPRESSION: There are a few scattered chronic small vessel ischemic changes within the periventricular white matter. No evidence of acute territorial infarct or hemorrhage. Chest CT 09/16/17 IMPRESSION: 1. Mild centrilobular emphysema. 2. No evidence of acute pneumonia or pulmonary edema. 3. Small pleural effusions (right larger than left). Again noted is atelectasis in dependent aspect of right upper and right lower lobe. The small left pleural effusion has increased compared to 09/03/2017 and produces compressive atelectasis in the left lower lobe. Assessment/Plan Assessment: 72 y/o male with a PMH of COPD on 2.5L of home oxygen, hypertension, diabetes mellitus, rheumatoid arthritis on methotrexate, atrial flutter/ fibrillation on Eliquis, obstructive sleep apnea on CPAP, diastolic heart failure (prior hx EF 55%). He was brought in by ambulance with complaint of disorientation and lethargy and is currently being treated for Chronic Hypoxemic Hypercapnic Respiratory failure, Acute COPD exacerbation, Respiratory acidosis, Toxic/Metabolic Encephalopathy, as well as management of his chronic conditions. Plan: Chronic Hypoxemic Hypercapnic Respiratory failure w/ Respiratory Acidosis: 3.5L Oxygen by Nasal Cannula Continue BIPAP Acute COPD exacerbation: 3.5L Oxygen by Nasal Cannula Prednisone Taper --> 20mg PO QD Today x2 days --> 10mg PO afterwards Symbicort 2 puffs BID Inhaled Atrovent 2.5mL Q4hrs Proventil 3mL Q4hrs Toxic/Metabolic Encephalopathy: Continue BIPAP Diabetes Mellitus: Levemir 20units BID SC NovoLOG sliding scale SC Lipitor 10mg PO QD Per Endocrinology, Patient will f/u with Dr. Senior at her office when he is discharged where he will recieve a sample Humalog 75/25 pen to check for tolerance and to discuss the plan with the insulin he has at home Atrial Fibrillation/Flutter: Eliquis 5mg PO BID Diltiazem 30mg PO Q6hr Diastolic Heart Failure: Digoxin 0.125mg PO QD Furosemide 40mg PO BID Rheumatoid Arthritis: Allpourinol 300mg PO QD Obstructive Sleep Apnea: Continue BIPAP Hypertension: Metoprolol Tartrate 100mg PO BID Esophageal Candidiasis: Nystatin 5mL QID Rinse and Swallow Benign Prostatic Hyperplasia: Tamsulosin 0.4mg PO QD Code Status: Full resuscitation
[2017-09-23 08:12] LABS: ABSOLUTE BASOPHIL COUNT 0 /CUMM (0.0-0.2); ABSOLUTE EOSINOPHIL COUNT 0.1 /CUMM (0.0-0.7); ABSOLUTE GRANULOCYTE CT 9.2 /CUMM (1.4-6.5); ABSOLUTE LYMPH COUNT 1.4 /CUMM (1.2-3.4); ABSOLUTE MONOCYTE COUNT 0.8 /CUMM (0.10-0.60); BASOPHIL % 0.2 % (0.0-2.0); EOSINOPHIL % 0.7 % (0-5); GRANULOCYTE % 80.1 % (42.2-75.2); HEMATOCRIT 38.9 % (42-52); MEAN CORPUSCULAR HGB CONC 32.2 G/DL (33.0-37.0); MEAN CORPUSCULAR VOLUME 96.1 FL (80.0-94.0); MEAN PLATELET VOLUME 8.8 FL (7.4-10.4); PLATELET COUNT 117 /CUMM (130-400); RBC DISTRIBUTION WIDTH 17.3 % (11.5-14.5); RED BLOOD CELL CT 4.05 /CUMM (4.70-6.10); WHITE BLOOD CELL COUNT 11.4 /CUMM (4.8-10.8)
[2017-09-23 08:41] VITALS: BP 114/60
--- NOTE | 2017-09-23 09:10 | PN- Pulmonary ---
Subjective HPI/Critical Care Issues: pt seen and examined feeling better appears to be returning to respiratory baseline no n/v/d/c no further vasovagal events no cp Objective Current Medications: Current Medications Sig/Lakisha Start time Last Medication Dose Route Stop Time Status Admin Albuterol Sulfate 3 ML EVERY 4 HRS/AWAKE 09/15 1200 AC 09/22 INH 2009 Allopurinol 300 MG DAILY 09/15 0900 AC 09/23 PO 0829 Apixaban 5 MG BID 09/15 09 AC 09/23 PO 0828 Atorvastatin Calcium 10 MG 1700 09/15 1700 AC 09/22 PO 1644 Azithromycin 500 MG DAILY 09/15 09 DC 09/22 Sodium Chloride 250 ML IV 0916 Budesonide/ 2 PUF BID 09/15 899 AC 09/23 Formoterol Fumarate INH 08 Digoxin 0.125 MG 1700 09/20 1700 AC 09/22 PO 164 Diltiazem HCl 30 MG Q6 09/19 1200 AC 09/23 PO 0640 Duloxetine HCl 60 MG DAILY 09/15 09 AC 09/23 PO 0828 Furosemide 40 MG BID 09/22 2099 AC 09/23 PO 0828 Furosemide 40 MG DAILY 09/21 0900 DC 09/22 PO 0915 Insulin Aspart 0 TIDAC/HS 09/18 1700 AC 09/23 SC 0829 Insulin Detemir 16 UNITS BID 09/23 0900 AC SC Insulin Detemir 20 UNITS BID 09/22 2100 DC 09/22 SC 211 Insulin Detemir 25 UNITS BID 09/21 2100 DC 09/22 SC 0925 Ipratropium [place] 2.5 ML EVERY 4 HRS/AWAKE 09/15 1200 AC 09/22 INH 2009 Ketorolac 15 MG Q8P PRN 09/15 0145 DC Tromethamine IV Metoprolol Tartrate 100 MG BID 09/19 2100 AC 09/23 PO 0828 Nystatin 5 ML 4 TIMES/DAY 09/18 1700 AC 09/23 PO 0828 Omeprazole 20 MG BID 09/15 0900 AC 09/23 PO 08 Prednisone 10 MG DAILY 09/25 0900 AC PO 10/24 09 Prednisone 20 MG DAILY 09/23 0900 AC 09/23 PO 09/24 0901 0829 Sodium Chloride 2 SPRAY Q4P PRN 09/21 1815 AC 09/21 CELSO 205 Tamsulosin HCl 0.4 MG QPM 09/15 2100 AC 09/22 PO 2118 Vital Signs & I&O Last 24 Hrs of Vitals and I&O: Vital Signs Date Time Temp Pulse Resp B/P B/P Pulse O2 O2 Flow FiO2 Mean Ox Delivery Rate 09/23 0841 92 114/60 09/23 0643 97.7 71 20 108/66 96 Nasal 3.5L Cannula 09/23 0640 86 108/66 09/23 0034 122 142/88 09/23 0026 123 93 09/23 0000 BIPAP 09/22 2256 124 94 09/22 2215 98.2 125 20 110/78 93 Nasal Cannula 09/22 2119 124 122/90 09/22 2117 124 122/80 09/22 1815 123 118/80 09/22 1647 118 92/46 09/22 1605 94 Nasal 3.5L Cannula 09/22 1600 Nasal 3.5L Cannula 09/22 1442 98.3 99 18 114/76 97 Nasal Cannula 09/22 0915 64 130/60 Intake & Output 09/23 1600 09/23 0800 09/23 0000 Intake Total 220 300 Output Total 1275 500 Balance -1055 -200 Intake, Oral 220 300 Number 0 Bowel Movements Output, Urine 1275 500 Patient 268 lb Weight Weight Bed scale Measurement Method Exam Other Physical Findings: gen-awake and alert heent-nasal cannula cvs-s1,s2, tachycardic lungs-rare rhonchi, diminished bases abd-soft,bs+ ext-trace edema Results Last 24 Hrs of Lab Results: Laboratory Tests 09/23/17 0655: Anion Gap 4 L, Estimated GFR > 60, BUN/Creatinine Ratio 31.3 H, Magnesium 2.0, CBC w Diff NO MAN DIFF REQ, RBC 4.05 L, MCV 96.1 H, MCH 31.0, MCHC 32.2 L, RDW 17.3 H, MPV 8.8, Gran % 80.1 H, Lymphocytes % 11.8 L, Monocytes % 7.2, Eosinophils % 0.7, Basophils % 0.2, Absolute Granulocytes 9.2 H, Absolute Lymphocytes 1.4, Absolute Monocytes 0.8 H, Absolute Eosinophils 0.1, Absolute Basophils 0 Impression/Plan Impression/Plan Impression/Plan: Impression 72 year old man * stable resolved acute phase, now with chronic hypoxemic and hypercarbic respiratory failure * IMPROVED Acute exacerbation of COPD * a.fib/flutter - on Eliquis * DM - Insulin dependent * RA - chronic pain Plan -nocturnal NIV, will need sleep study re-evaluation on an outpatient basis -maintain spo2 >92% -aspiration precautions -TRC/Nebs -taper steroids as ordered - maintain on 10mg prednisone (arthritis) -continue metoprolol -currently on Eliquis -hemodynamic monitoring - currently on cardizem -continue lasix DVT prophylaxis at all times (On Eliquis) Full Code Discharge planning Of note - if patient requires any urethral catheterization this is to be done only with urology per patient request
--- NOTE | 2017-09-23 10:29 | PN- Diabetes ---
Assessment/Plan Diabetes Assessment: 72 y/o male with hx of COPD on home oxygen and predniosne 20 mg daily chronically, diabetes type 2 on Lantus 30 units twice a day only as outpatient as per Dr. Zee ( HbA1c was 8.5% in 05/2017). He was admitted for acute hypoxemic hypercapnic respiratory failure and was put on Solumedrol. His glucose levels were in the 300s and 400s. Since 09/19/2017, he has been on prednisone taper--40 mg daily x 2 days, 30 mg daily x 2 days, etc . Over the weekend, Levemir was decreased to 20 units twice a day; Novolog coverage before meals was adjusted. In addition, he is on Novolog coverage at bedtime. His FSGs were 74, 203, 185, 249 and 127. Prednisone will be decreased to 20 mg daily today. Plan: 1. further decrease Levemir to 16 units twice a day; 2. adjust Novolog coverage before meals and Novolov coverage at bedtime; detail see the inpatient DM order; 3. monitor FSGs. will follow. With regards to discharge plan for DM, I have discussed with Dr. Zee, patient and his : --- stop Lantus ---start Humalog 75 /25 mix insulin 25 units before breakfast and 25 units before dinner; ---monitor FSGs x 3 times a day. Inpatient Diabetes Orders Before Each Meal: Bolus Insulin: Novolog < 80 mg/dl: no coverage 80-100 mg/dl: 8 units 101-120 mg/dl: 8 units 121-150 mg/dl: 8 units 151-200 mg/dl: 10 units 201-250 mg/dl: 12 units 251-300 mg/dl: 13 units 301-350 mg/dl: 14 units 351-400 mg/dl: 15 units > 400 mg/dl: 16 units Bedtime: Bolus Insulin: Novolog < 80 mg/dl: no coveage 80-100 mg/dl: no coverage 101-120 mg/dl: no coverage 121-150 mg/dl: no coverage 151-200 mg/dl: no coverage 201-250 mg/dl: no coverage 251-300 mg/dl: 2 units 301-350 mg/dl: 3 units 351-400 mg/dl: 4 units > 400 mg/dl: 5 units Subjective Subjective: He feels better. Objective Last 24 Hrs of Vital Signs/I&O Vital Signs Date Time Temp Pulse Resp B/P B/P Pulse O2 O2 Flow FiO2 Mean Ox Delivery Rate 09/23 0913 94 Nasal 3.0L Cannula 09/23 0841 92 114/60 09/23 0643 97.7 71 20 108/66 96 Nasal 3.5L Cannula 09/23 0640 86 108/66 09/23 0034 122 142/88 09/23 0026 123 93 09/23 0000 BIPAP 09/22 2256 124 94 09/22 2215 98.2 125 20 110/78 93 Nasal Cannula 09/22 2119 124 122/90 09/22 2118 124 122/80 09/22 1815 123 118/80 09/22 1647 118 92/46 09/22 1605 94 Nasal 3.5L Cannula 09/22 1600 Nasal 3.5L Cannula 09/22 1442 98.3 99 18 114/76 97 Nasal Cannula Intake & Output 09/23 1600 09/23 0800 09/23 0000 Intake Total 220 300 Output Total 1275 500 Balance -1055 -200 Intake, Oral 220 300 Number 0 Bowel Movements Output, Urine 1275 500 Patient 268 lb Weight Weight Bed scale Measurement Method Findings Pertinent Lab/Kiel Results: Laboratory Tests 09/23 654 Chemistry Sodium (137 - 145 mmol/L) 136 L Potassium (3.5 - 5.1 mmol/L) 3.5 Chloride (98 - 107 mmol/L) 94 L Carbon Dioxide (22 - 30 mmol/L) 38 H Anion Gap (5 - 16) 4 L BUN (9 - 20 mg/dL) 25 H Creatinine (0.7 - 1.2 mg/dL) 0.8 Estimated GFR (>60 ml/min) > 60 BUN/Creatinine Ratio (7 - 25 %) 31.3 H Magnesium (1.6 - 2.3 mg/dL) 2.0 Hematology CBC w Diff NO MAN DIFF REQ WBC (4.8 - 10.8 /CUMM) 11.4 H RBC (4.70 - 6.10 /CUMM) 4.05 L Hgb (14.0 - 18.0 G/DL) 12.5 L Hct (42 - 52 %) 38.9 L MCV (80.0 - 94.0 FL) 96.1 H MCH (27.0 - 31.0 PG) 31.0 MCHC (33.0 - 37.0 G/DL) 32.2 L RDW (11.5 - 14.5 %) 17.3 H Plt Count (130 - 400 /CUMM) 117 L MPV (7.4 - 10.4 FL) 8.8 Gran % (42.2 - 75.2 %) 80.1 H Lymphocytes % (20.5 - 51.1 %) 11.8 L Monocytes % (1.7 - 9.3 %) 7.2 Eosinophils % (0 - 5 %) 0.7 Basophils % (0.0 - 2.0 %) 0.2 Absolute Granulocytes (1.4 - 6.5 /CUMM) 9.2 H Absolute Lymphocytes (1.2 - 3.4 /CUMM) 1.4 Absolute Monocytes (0.10 - 0.60 /CUMM) 0.8 H Absolute Eosinophils (0.0 - 0.7 /CUMM) 0.1 Absolute Basophils (0.0 - 0.2 /CUMM) 0
[2017-09-23 15:00] VITALS: BP 120/70
[2017-09-23 23:11] VITALS: BP 94/64
[2017-09-24 06:47] VITALS: BP 108/60
--- NOTE | 2017-09-24 06:52 | PN- Housestaff ---
NadirRimaaustin 09/24/17 0652: Subjective Follow-up For: COPD exacerbation Subjective: No acute telemetry events overnight, afebrile. Patient has no c/o, is inquiring if he will be able to go home today. Denies fever, night sweats, chills. Review of Systems Constitutional: Reports: see HPI. Objective Last 24 Hrs of Vital Signs/I&O Vital Signs Date Time Temp Pulse Resp B/P B/P Pulse O2 O2 Flow FiO2 Mean Ox Delivery Rate 09/24 1447 97.8 90 20 100/58 95 09/24 1325 Nasal 3.0L Cannula 09/24 1217 108/60 09/24 0904 108/60 09/24 0835 96 Nasal 3.0L Cannula 09/24 0800 94 Nasal 3.5L Cannula 09/24 0647 97.8 76 20 108/60 93 Nasal Cannula 09/24 0534 77 09/24 0035 128 98 09/24 0007 127 09/24 0000 BIPAP 09/23 2311 98.0 126 20 94/64 93 Nasal Cannula 09/23 2250 124 97 09/23 2124 126 110/76 09/23 2124 126 110/76 09/23 1845 92 Nasal 3.5L Cannula 09/23 1723 106 118/64 09/23 1722 100 118/64 09/23 1600 Nasal 3.5L Cannula Intake & Output 09/24 1600 09/24 0800 09/24 0000 Intake Total 500 50 300 Output Total 800 550 Balance 500 -750 -250 Intake, Oral 500 50 300 Output, Urine 800 550 Patient 266 lb Weight Weight Bed scale Measurement Method Physical Exam General Appearance: Alert, Oriented X3, Cooperative Cardiovascular: Regular Rate, Normal S1, Normal S2 Lungs: Clear to Auscultation, Normal Air Movement Abdomen: Normal Bowel Sounds, Soft, No Tenderness Assessment/Plan Assessment: Mr Claudio is a 72 year old man w/ a PMHx of COPD on nightly 2-3 L O2, HTN, Insulin dependent DM, CHF, Gout, RA on DMARD tx, current smoker, paroxysmal Afib , obstructive sleep apnea was sent to the emergency room by his visiting nurse when he was found to be hypotensive and tachycardic. He reported an episode of fall, but did not have any head injury. Problems: 1. Acute COPD Exacerbation, on 3.0L nasal cannula (refusing Bi-Pap) 2. Acute on chronic hypoxemic and hypercapnic respiratory failure 3. Atrial fibrillation 4. Diabetes mellitus 5. HFpEF 6. Leukocytosis- afebrile, no signs of infection, most likely due to prolonged predisone use Plan: -Continue Eliquis 5mg BID -Prednisone 10mg po - patient home dose, treatment for RA -Furosemide 40mg BID per patient's home dose -Digoxin 0.125 today (monitor K+ while on Furosemide) -Metoprolol 100mg PO BID- normal outpatient dose -Albuterol nebulizer Q4H -Atrovent Q4H -Continue Cymbalta 60mg -Insulin updated per endocrinology consult -Cardizem CD 120mg qDaily -patient will require outpatient ISABELA/Cardioversion Full Code Patient on Eliquis for anticoagulation Diet: Consistent Carb I Problem List: 1. COPD with acute exacerbation Pain Ratin Pain Location: n/a Pain Goal: Remain pain free Pain Plan: tylenol Tomorrow's Labs & Rationales: CBC, BEP, Digoxin level Priscilla Espinoza MD 09/24/17 1038: Attending MD Review Statement Attending Statement Attending MD Statement: examined this patient, discuss w/resident/PA/TELEPHONE SEX WORKER, agreed w/resident/PA/TELEPHONE SEX WORKER, reviewed EMR data (avail), discussed with nursing, discussed with case mgmt, reviewed images Attending Assessment/Plan: Patient is very keen on going home today. However he did not work with physical therapy yesterday and his heart rate remains on the high side in the 110 range. He is a 72-year-old with multiple medical problems including chronic respiratory failure, atrial fibrillation on metoprolol Cardizem and dig with anticoagulation , morbid obesity and obstructive sleep apnea and chronic steroid dependence with rheumatoid arthritis. We have tapered the prednisone down to 10 mg a day which is his usual dose. Will clarify with cardiology regarding his heart rate. He adamantly refuses to go to rehab and I worry about recurrent admissions. He is never been out of the hospital long enough to make it to the CHF or COPD clinic.
--- NOTE | 2017-09-24 08:04 | PN- Student ---
Subjective Subjective: Hospital day 10: Overnight, the telemonitor report showed the patient was in Atrial Flutter with rates from 80-125bpm. Currently in Atrial Flutter. Patient was interviewed and examined at bedside this morning. No acute events reported overnight. Patient was pleasant, appropriately responsive, and in no acute distress. The patient offers no complaints overnight and is hopeful to go home soon and continues to refuse going to [facility]. Patient denies fevers, chills, nightsweats, chest pain, palpitations, shortness of breath, abdominal pain, and urinary symptoms Current Medications Sig/Lakisha Start time Last Medication Dose Route Stop Time Status Admin Albuterol Sulfate 3 ML EVERY 4 HRS/AWAKE 09/15 1200 AC 09/23 INH 2235 Allopurinol 300 MG DAILY 09/15 899 AC 09/23 PO 08 Apixaban 5 MG BID 09/15 899 AC 09/23 PO 211 Atorvastatin Calcium 10 MG 1700 09/15 1700 AC 09/23 PO 1719 Budesonide/ 2 PUF BID 09/15 899 AC 09/23 Formoterol Fumarate INH 211 Digoxin 0.125 MG 09/20 170 AC 09/23 PO 1722 Diltiazem HCl 30 MG Q6 09/19 1200 AC 09/24 PO 0534 Duloxetine HCl 60 MG DAILY 09/15 899 AC 09/23 PO 0828 Furosemide 40 MG BID 09/22 2099 AC 09/23 PO 1720 Insulin Aspart 0 TIDAC/HS 09/18 1700 AC 09/23 SC 1752 Insulin Detemir 16 UNITS BID 09/23 0900 AC 09/23 SC 2121 Insulin Detemir 20 UNITS BID 09/22 2100 DC 09/22 SC 2117 Ipratropium [place] 2.5 ML EVERY 4 HRS/AWAKE 09/15 1200 AC 09/23 INH 2235 Ketorolac 15 MG Q8P PRN 09/15 0145 DC Tromethamine IV Metoprolol Tartrate 100 MG BID 09/19 2099 AC 09/23 PO 2124 Nystatin 5 ML 4 TIMES/DAY 09/18 1700 DC 09/23 PO 0828 Omeprazole 20 MG BID 09/15 899 AC 09/23 PO 2114 Potassium Chloride 40 MEQ BID 09/23 2100 AC 09/23 PO 09/24 1000 2116 Prednisone 10 MG DAILY 09/25 09 AC PO 10/24 09 Prednisone 20 MG DAILY 09/23 09 AC 09/23 PO 09/24 0901 0829 Sodium Chloride 2 SPRAY Q4P PRN 09/21 1815 AC 09/21 CELSO 2056 Tamsulosin HCl 0.4 MG QPM 09/15 2099 AC 09/23 PO 2123 Allergies: Sulfa Drugs Objective Objective: Vital Signs Date Time Temp Pulse Resp B/P B/P Pulse O2 O2 Flow FiO2 Mean Ox Delivery Rate 09/24 0647 97.8 76 20 108/60 93 Nasal Cannula 09/24 0534 77 09/24 0035 128 98 09/24 0007 127 09/24 0000 BIPAP 09/23 2311 98.0 126 20 94/64 93 Nasal Cannula 09/23 2250 124 97 09/24 2123 126 110/76 09/24 2123 126 110/76 09/23 1845 92 Nasal 3.5L Cannula 09/23 1723 106 118/64 09/23 1722 100 118/64 09/23 1600 Nasal 3.5L Cannula 09/23 1500 98.3 78 20 120/70 94 09/23 1248 90 110/60 09/23 0913 94 Nasal 3.0L Cannula 09/23 0841 92 114/60 Intake & Output 09/24 1600 09/24 0800 09/24 0000 Intake Total 50 300 Output Total 800 550 Balance -750 -250 Intake, Oral 50 300 Output, Urine 800 550 Patient 266 lb Weight Weight Bed scale Measurement Method Physical Exam General: NAD; Alert and Oriented x3; Appropriately responsive Skin: Warm; Dry; No rashes noted; Bruising noted on upper extremities HEENT: Normocephalic; Atraumatic Lungs: Wheezing and decreased breath sounds noted bilaterally with anterior and lateral approach Heart: Normal S1 and S2; Irregular rhythm; No murmurs, gallops, or rubs noted upon ausculatation Abdomen: No visible distention; Normoactive bowel sounds in all four quadrants; Non-tender to palpation in all four quadrants; No masses noted with light and deep palpation Extremities: Normal pulses; Bilateral edema noted in both lower extremities; No clubbing Neuro: CN II-XII in tact Results Results: Laboratory Tests 09/24/17 0621: Anion Gap 3 L, Estimated GFR > 60, BUN/Creatinine Ratio 36.3 H 09/23/17 0655: Anion Gap 4 L, Estimated GFR > 60, BUN/Creatinine Ratio 31.3 H, Magnesium 2.0, CBC w Diff NO MAN DIFF REQ, RBC 4.05 L, MCV 96.1 H, MCH 31.0, MCHC 32.2 L, RDW 17.3 H, MPV 8.8, Gran % 80.1 H, Lymphocytes % 11.8 L, Monocytes % 7.2, Eosinophils % 0.7, Basophils % 0.2, Absolute Granulocytes 9.2 H, Absolute Lymphocytes 1.4, Absolute Monocytes 0.8 H, Absolute Eosinophils 0.1, Absolute Basophils 0 09/22/17 0650: Anion Gap 4 L, Estimated GFR > 60, BUN/Creatinine Ratio 37.1 H, Magnesium 2.1, CBC w Diff NO MAN DIFF REQ, RBC 4.04 L, MCV 95.8 H, MCH 31.1 H, MCHC 32.4 L, RDW 17.3 H, MPV 8.9, Gran % 79.3 H, Lymphocytes % 12.2 L, Monocytes % 7.9, Eosinophils % 0.5, Basophils % 0.1, Absolute Granulocytes 8.4 H, Absolute Lymphocytes 1.3, Absolute Monocytes 0.8 H, Absolute Eosinophils 0.1, Absolute Basophils 0 CXR 09/14/17 IMPRESSION: 1. Bibasilar opacification, consider atelectasis, aspiration, or pneumonia. 2. Nonspecific bronchovascular prominence could reflect sequela of vascular congestion. No convincing overt pulmonary edema. Head CT 09/16/17 IMPRESSION: There are a few scattered chronic small vessel ischemic changes within the periventricular white matter. No evidence of acute territorial infarct or hemorrhage. Chest CT 09/16/17 IMPRESSION: 1. Mild centrilobular emphysema. 2. No evidence of acute pneumonia or pulmonary edema. 3. Small pleural effusions (right larger than left). Again noted is atelectasis in dependent aspect of right upper and right lower lobe. The small left pleural effusion has increased compared to 09/03/2017 and produces compressive atelectasis in the left lower lobe. Assessment/Plan Assessment: 72 y/o male with a PMH of COPD on 2.5L of home oxygen, hypertension, diabetes mellitus, rheumatoid arthritis on methotrexate, atrial flutter/ fibrillation on Eliquis, obstructive sleep apnea on CPAP, diastolic heart failure (prior hx EF 55%). He was brought in by ambulance with complaint of disorientation and lethargy and is currently being treated for Chronic Hypoxemic Hypercapnic Respiratory failure, Acute COPD exacerbation, Respiratory acidosis, Toxic/Metabolic Encephalopathy, as well as management of his chronic conditions. Plan: Chronic Hypoxemic Hypercapnic Respiratory failure w/ Respiratory Acidosis: 3.5L Oxygen by Nasal Cannula Continue BIPAP Acute COPD exacerbation: 3.5L Oxygen by Nasal Cannula Prednisone Taper --> 20mg PO QD Today --> 10mg PO afterwards Symbicort 2 puffs BID Inhaled Atrovent 2.5mL Q4hrs Proventil 3mL Q4hrs Toxic/Metabolic Encephalopathy: Continue BIPAP Diabetes Mellitus: Levemir 16units BID SC NovoLOG sliding scale SC Lipitor 10mg PO QD Per Endocrinology, Patient will f/u with Dr. Senior at her office when he is discharged where he will recieve a sample Humalog 75/25 pen to check for tolerance and to discuss the plan with the insulin he has at home Atrial Fibrillation/Flutter: Eliquis 5mg PO BID Diltiazem 30mg PO Q6hr Diastolic Heart Failure: Digoxin 0.125mg PO QD Furosemide 40mg PO BID Rheumatoid Arthritis: Allpourinol 300mg PO QD Obstructive Sleep Apnea: Continue BIPAP Hypertension: Metoprolol Tartrate 100mg PO BID Esophageal Candidiasis: Nystatin 5mL QID Rinse and Swallow Benign Prostatic Hyperplasia: Tamsulosin 0.4mg PO QD
--- NOTE | 2017-09-24 08:53 | PN- Pulmonary ---
Subjective HPI/Critical Care Issues: pt seen and examined tachycardic overnight currently 74 afebrile no cp respiratory status at baseline no n/v/d/c Objective Current Medications: Current Medications Sig/Lakisha Start time Last Medication Dose Route Stop Time Status Admin Albuterol Sulfate 3 ML EVERY 4 HRS/AWAKE 09/15 1200 AC 09/23 INH 2235 Allopurinol 300 MG DAILY 09/15 0900 AC 09/23 PO 0829 Apixaban 5 MG BID 09/15 09 AC 09/23 PO 2114 Atorvastatin Calcium 10 MG 1700 09/15 1700 AC 09/23 PO 1719 Budesonide/ 2 PUF BID 09/15 0900 AC 09/23 Formoterol Fumarate INH 211 Digoxin 0.125 MG 1700 09/20 1700 AC 09/23 PO 1722 Diltiazem HCl 30 MG Q6 09/19 1200 AC 09/24 PO 0534 Duloxetine HCl 60 MG DAILY 09/15 0900 AC 09/23 PO 0828 Furosemide 40 MG BID 09/22 2100 AC 09/23 PO 1720 Insulin Aspart 0 TIDAC/HS 09/18 1700 AC 09/24 SC 0800 Insulin Detemir 16 UNITS BID 09/23 0900 AC 09/23 SC 2121 Ipratropium [place] 2.5 ML EVERY 4 HRS/AWAKE 09/15 1200 AC 09/23 INH 2235 Metoprolol Tartrate 100 MG BID 09/19 2100 AC 09/23 PO 2124 Nystatin 5 ML 4 TIMES/DAY 09/18 1700 DC 09/23 PO 0828 Omeprazole 20 MG BID 09/15 0900 AC 09/23 PO 2114 Potassium Chloride 40 MEQ ONCE ONE 09/24 1200 AC PO 09/24 1201 Potassium Chloride 40 MEQ BID 09/23 2100 AC 09/23 PO 09/24 1000 2116 Prednisone 10 MG DAILY 09/25 09 AC PO 10/24 0901 Prednisone 20 MG DAILY 09/23 0900 AC 09/23 PO 09/24 0901 0829 Sodium Chloride 2 SPRAY Q4P PRN 09/21 1815 AC 09/21 CELSO 205 Tamsulosin HCl 0.4 MG QPM 09/15 2100 AC 09/23 PO 2124 Vital Signs & I&O Last 24 Hrs of Vitals and I&O: Vital Signs Date Time Temp Pulse Resp B/P B/P Pulse O2 O2 Flow FiO2 Mean Ox Delivery Rate 09/24 0835 96 Nasal 3.0L Cannula 09/24 0647 97.8 76 20 108/60 93 Nasal Cannula 09/24 0534 77 09/24 0035 128 98 09/24 0007 127 09/24 0000 BIPAP 09/23 2311 98.0 126 20 94/64 93 Nasal Cannula 09/23 2250 124 97 09/23 2124 126 110/76 09/23 2124 126 110/76 09/23 1845 92 Nasal 3.5L Cannula 09/23 1723 106 118/64 09/23 1722 100 118/64 09/23 1600 Nasal 3.5L Cannula 09/23 1500 98.3 78 20 120/70 94 09/23 1248 90 110/60 09/23 0913 94 Nasal 3.0L Cannula Intake & Output 09/24 1600 09/24 0800 09/24 0000 Intake Total 50 300 Output Total 800 550 Balance -750 -250 Intake, Oral 50 300 Output, Urine 800 550 Patient 266 lb Weight Weight Bed scale Measurement Method Exam Other Physical Findings: gen-awake and alert heent-nasal cannula cvs-s1,s2, tachycardic lungs-rare rhonchi, diminished bases abd-soft,bs+ ext-trace edema Results Last 24 Hrs of Lab Results: Laboratory Tests 09/24/17 0621: Anion Gap 3 L, Estimated GFR > 60, BUN/Creatinine Ratio 36.3 H Impression/Plan Impression/Plan Impression/Plan: Impression 72 year old man * stable resolved acute phase, now with chronic hypoxemic and hypercarbic respiratory failure * IMPROVED Acute exacerbation of COPD * a.fib/flutter - on Eliquis * DM - Insulin dependent * RA - chronic pain Plan -nocturnal NIV, will need sleep study re-evaluation on an outpatient basis -maintain spo2 >92% -TRC/Nebs -maintain on 10mg prednisone (arthritis) -currently on Eliquis -hemodynamic monitoring - currently on cardizem -continue lasix -f/u cardiology -dc planning DVT prophylaxis at all times (On Eliquis) Full Code Discharge planning Of note - if patient requires any urethral catheterization this is to be done only with urology per patient request
--- NOTE | 2017-09-24 09:48 | PN- Diabetes ---
Assessment/Plan Diabetes Assessment: 72 y/o male with hx of COPD on home oxygen and predniosne 20 mg daily chronically, diabetes type 2 on Lantus 30 units twice a day only as outpatient as per Dr. Zee ( HbA1c was 8.5% in 05/2017). He was admitted for acute hypoxemic hypercapnic respiratory failure and was put on Solumedrol. His glucose levels were in the 300s and 400s. He was put on Levemir 30 units twice a day, Novolog coverage before meals and Novolog coverage at bedtime. Since 09/19/2017, he has been on prednisone taper--40 mg daily x 2 days, 30 mg daily x 2 days, etc . Currently he is on prednisone 20 mg per day. Starting , he will be on prednisone 10 mg daily. Levemir was further decreased to 16 units twice a day; Novolog coverage before meals and Novolov coverage at bedtime were adjusted.. Before Each Meal: Bolus Insulin: Novolog < 80 mg/dl: no coverage 80-100 mg/dl: 8 units 101-120 mg/dl: 8 units 121-150 mg/dl: 8 units 151-200 mg/dl: 10 units 201-250 mg/dl: 12 units 251-300 mg/dl: 13 units 301-350 mg/dl: 14 units 351-400 mg/dl: 15 units > 400 mg/dl: 16 units Bedtime: Bolus Insulin: Novolog < 80 mg/dl: no coveage 80-100 mg/dl: no coverage 101-120 mg/dl: no coverage 121-150 mg/dl: no coverage 151-200 mg/dl: no coverage 201-250 mg/dl: no coverage 251-300 mg/dl: 2 units 301-350 mg/dl: 3 units 351-400 mg/dl: 4 units > 400 mg/dl: 5 units His FSGs were 127, 204, 164, 159, 198 and 206. Plan: In hospital: continue the current insulin regimen for now; monitor FSGs If patient will be discharged to home, the discharge plan for DM:: --- stop Lantus ---start Humalog 75 /25 mix insulin 25 units before breakfast and 25 units before dinner; ---monitor FSGs x 3 times a day. If patientwill be discharged to a rehab or custodial, the discharge plan for DM will be the same insulin regimen as inpatient. f/u in office after discharge. Subjective Subjective: He has no special complaints this morning. Objective Last 24 Hrs of Vital Signs/I&O Vital Signs Date Time Temp Pulse Resp B/P B/P Pulse O2 O2 Flow FiO2 Mean Ox Delivery Rate 09/24 0904 108/60 09/24 0835 96 Nasal 3.0L Cannula 09/24 0647 97.8 76 20 108/60 93 Nasal Cannula 09/24 0534 77 09/24 0035 128 98 09/24 0007 127 09/24 0000 BIPAP 09/23 2311 98.0 126 20 94/64 93 Nasal Cannula 09/23 2250 124 97 09/23 2124 126 110/76 09/23 2124 126 110/76 09/23 1845 92 Nasal 3.5L Cannula 09/23 1723 106 118/64 09/23 1722 100 118/64 09/23 1600 Nasal 3.5L Cannula 09/23 1500 98.3 78 20 120/70 94 09/23 1248 90 110/60 Intake & Output 09/24 1600 09/24 0800 09/24 0000 Intake Total 50 300 Output Total 800 550 Balance -750 -250 Intake, Oral 50 300 Output, Urine 800 550 Patient 266 lb Weight Weight Bed scale Measurement Method Findings Pertinent Lab/Kiel Results: Laboratory Tests 09/24 0621 Chemistry Sodium (137 - 145 mmol/L) 136 L Potassium (3.5 - 5.1 mmol/L) 3.9 Chloride (98 - 107 mmol/L) 95 L Carbon Dioxide (22 - 30 mmol/L) 39 H Anion Gap (5 - 16) 3 L BUN (9 - 20 mg/dL) 29 H Creatinine (0.7 - 1.2 mg/dL) 0.8 Estimated GFR (>60 ml/min) > 60 BUN/Creatinine Ratio (7 - 25 %) 36.3 H
[2017-09-24] MEDS ORDERED: PREDNISONE10 M2 PO (10:14)
[2017-09-24] MEDS ORDERED: HUMALOG MI100 UNIT/1 IM (10:14)
--- NOTE | 2017-09-24 10:43 | PN- Cardiology ---
Subjective Subjective: Cardiac status unchanged. Remains in atrial flutter with reasonable rate control. Heart rate currently in the 80s. Objective Vital Signs and I&Os Vital Signs Date Time Temp Pulse Resp B/P B/P Pulse O2 O2 Flow FiO2 Mean Ox Delivery Rate 09/24 0904 108/60 09/24 0835 96 Nasal 3.0L Cannula 09/24 0647 97.8 76 20 108/60 93 Nasal Cannula 09/24 0534 77 09/24 0035 128 98 09/24 0007 127 09/24 0000 BIPAP 09/23 2311 98.0 126 20 94/64 93 Nasal Cannula 09/23 2250 124 97 09/23 2124 126 110/76 09/23 2124 126 110/76 09/23 1845 92 Nasal 3.5L Cannula 09/23 1723 106 118/64 09/23 1722 100 118/64 09/23 1600 Nasal 3.5L Cannula 09/23 1500 98.3 78 20 120/70 94 09/23 1248 90 110/60 Intake & Output 09/24 1600 09/24 0800 09/24 0000 09/23 1600 09/23 0809/23 0000 Intake Total 50 300 580 220 300 Output Total 800 180 587 1557 500 Balance -750 - -200 Intake, IV 20 Intake, Oral 50 300 560 220 300 Number 0 Bowel Movements Output, Urine 800 003 363 7488 500 Patient 266 lb 268 lb Weight Weight Bed scale Bed scale Measurement Method Current Medications: Current Medications Sig/Lakisha Start time Last Medication Dose Route Stop Time Status Admin Albuterol Sulfate 3 ML EVERY 4 HRS/AWAKE 09/16 1199 AC 09/23 INH 2235 Allopurinol 300 MG DAILY 09/15 899 AC 09/24 PO 0905 Apixaban 5 MG BID 09/15 899 AC 09/24 PO 0904 Atorvastatin Calcium 10 MG 1700 09/15 1700 AC 09/23 PO 1719 Budesonide/ 2 PUF BID 09/15 899 AC 09/24 Formoterol Fumarate INH 0908 Digoxin 0.125 MG 09/20 1700 AC 09/23 PO 1722 Diltiazem HCl 30 MG Q6 09/19 1200 AC 09/24 PO 0534 Duloxetine HCl 60 MG DAILY 09/15 899 AC 09/24 PO 0905 Furosemide 40 MG BID 09/22 2100 AC 09/24 PO 0904 Insulin Aspart 0 TIDAC/HS 09/18 1700 AC 09/24 SC 0800 Insulin Detemir 16 UNITS BID 09/23 0900 AC 09/24 SC 0903 Ipratropium [place] 2.5 ML EVERY 4 HRS/AWAKE 09/15 1200 AC 09/23 INH 2235 Metoprolol Tartrate 100 MG BID 09/19 2100 AC 09/24 PO 0904 Nystatin 5 ML 4 TIMES/DAY 09/18 1700 DC 09/23 PO 0828 Omeprazole 20 MG BID 09/15 0900 AC 09/24 PO 0904 Potassium Chloride 40 MEQ ONCE ONE 09/24 1200 AC PO 09/24 1201 Potassium Chloride 40 MEQ BID 09/23 2100 DC 09/24 PO 09/24 1000 0904 Prednisone 10 MG DAILY 09/25 09 AC PO 10/24 09 Prednisone 20 MG DAILY 09/23 0900 DC 09/24 PO 09/24 0901 0905 Sodium Chloride 2 SPRAY Q4P PRN 09/21 1815 AC 09/24 CELSO 0909 Tamsulosin HCl 0.4 MG QPM 09/15 2100 AC 09/23 PO 2124 Results Last 48 Hrs of Labs/Mics: Laboratory Tests 09/24/17 0621: Anion Gap 3 L, Estimated GFR > 60, BUN/Creatinine Ratio 36.3 H 09/23/17 0655: Anion Gap 4 L, Estimated GFR > 60, BUN/Creatinine Ratio 31.3 H, Magnesium 2.0, CBC w Diff NO MAN DIFF REQ, RBC 4.05 L, MCV 96.1 H, MCH 31.0, MCHC 32.2 L, RDW 17.3 H, MPV 8.8, Gran % 80.1 H, Lymphocytes % 11.8 L, Monocytes % 7.2, Eosinophils % 0.7, Basophils % 0.2, Absolute Granulocytes 9.2 H, Absolute Lymphocytes 1.4, Absolute Monocytes 0.8 H, Absolute Eosinophils 0.1, Absolute Basophils 0 Assessment/Plan Assessment/Plan Assessment: 1. COPD exacerbation 2. Atrial flutter, with adequate rate control 3. Chronic diastolic heart failure Plan: * Continue metoprolol 100 milligrams p.o. b.i.d. which is the patient's usual outpatient dose. * Continue current Cardizem dose; consider transitioning to Cardizem CD 120 mg daily * Continue digoxin 0.125 mg daily. Follow-up digoxin level pending. Eventual outpatient ISABELA/cardioversion to be scheduled. Continue telemetry? Yes
[2017-09-24] MEDS ORDERED: CARDIZEM CD120 M2 PO (13:40)
[2017-09-24] MEDS ORDERED: LASIX40 M1 PO (13:40)
[2017-09-24] MEDS ORDERED: DIGOXIN125 MCG PO (13:42)
[2017-09-24 14:47] VITALS: BP 100/58
--- NOTE | 2017-09-24 15:24 | Discharge Summary ---
See Addendum Visit Information Visit Dates Admission Date: 09/14/17 Discharge Date: 09/25/17 Hospital Course Course Attending Physician: Alexis TINEO,Priscilla Quintanilla Primary Care Physician: Tanmay Zee MD Consulting Request: Consulting Specialty: Cardiology Hospital Course: 72-year-old gentleman with past medical history of COPD on 2-3 L of home oxygen, hypertension, diabetes mellitus, rheumatoid arthritis on methotrexate, atrial flutter/fibrillation on Eliquis, obstructive sleep apnea on CPAP, diastolic heart failure (prior hx EF 55%). He was brought in by ambulance with complaint of disorientation and lethargy. He was initially admitted to ICU and later transferred to telemetry floor for the management of following conditions; #Acute on chronic hypoxemic hypercapnic respiratory failure He was disoriented and lethargic on presentation, with ABG showing respiratory acidosis and CO2 retention and was placed on BiPAP. ABG significantly improved on BiPAP, was switched to High flow oxygen and tapered down to his home dose of oxygen of (2-3 L). Advised to use Bipap at night. He was initially started on broad coverage for hospital-acquired pneumonia with vancomycin and ceftazidime and azithromycin. Patient has frequent hospitalizations with most recent discharge on 08/16/17. However his antibiotics were narrowed down to azithromycin after pneumonia was ruled out by CT chest Azithromycin was continued mainly for COPD exacerbation. He was also started on IV Solu-Medrol later switched to prednisone and tapered gradually. He was continued on prednisone 10 mg daily which she has been taking for rheumatoid arthritis. #History of atrial flutter/fibrillation On admission his Cardizem and metoprolol were held due to hypotension and features of sepsis. However the Patient heart rate was constantly in the 120s. Cardiology consult was obtained and he was initially started on Cardizem drip. Then when his blood pressure stabilized he was restarted on his home dose of metoprolol and half of his home dose of Cardizem beac[place] of persistent hypotension, and in addition was also on digoxin for additional heart rate control with Cardizem drip gradually weaned off. His heart rate remained stable afterwards but runs slightly on the higher side and he was discharged home on metoprolol, Cardizem and digoxin with outpatient follow up with cardiology. Continued home dose of Eliquis. #History of diastolic heart failure ProBNP was 845 with Chest x-ray showing pulmonary congestion without overt pulmonary edema, his home dose of Lasix, statin and metoprolol were continued. #History of hypertension Metoprolol and Cardizem was initially held because of hypotension but were later resumed. Blood pressure remained stable at the time of discharge. #Diabetes mellitus Blood sugar initially was poorly controlled, most likely due to Solu-Medrol, insulin sliding scale dose was adjusted by endocrinology, and the patient was kept on his home dose of Levemir 30 units twice daily with Insulin Sliding scale. Levemir was discontinued and patient was sent to [facility] on NSS and Levemir 16 units BID, Advised to start taking Humalog 25 units twice daily (Before breakfast and dinner) once discharged home. #History of gout and Rheumatoid Arthritis; -Allopurinol, methotrexate and steroids were continued. # Hx of BPH; - Tamsulosin was continued. Allergies: Coded Allergies: Sulfa (Sulfonamide Antibiotics) (Intermediate, RASH/HIVES 06/06/17) Significant Procedures: XRY-PORTABLE CHEST XRAY IMPRESSION: 1. Bibasilar opacification, consider atelectasis, aspiration, or pneumonia. 2. Nonspecific bronchovascular prominence could reflect sequela of vascular congestion. No convincing overt pulmonary edema. CT HEAD WO IV CONTRAST IMPRESSION: There are a few scattered chronic small vessel ischemic changes within the periventricular white matter. No evidence of acute territorial infarct or hemorrhage. CT CHEST WO IV CONTRAST IMPRESSION: 1. Mild centrilobular emphysema. 2. No evidence of acute pneumonia or pulmonary edema. 3. Small pleural effusions (right larger than left). Again noted is atelectasis in dependent aspect of right upper and right lower lobe. The small left pleural effusion has increased compared to 09/03/2017 and produces compressive atelectasis in the left lower lobe. Disposition Summary Disposition Principal Diagnosis: Acute on chronic hypoxemic hypercapnic respiratory failure 2/2 to COPD exacerbation Acute on chronic diastolic heart failure History of diabetes with elevated blood sugar levels Chronic medical condition Additional Diagnosis: Atrial fibrillation with RVR History of diabetes with elevated blood sugar levels Chronic medical condition Discharge Disposition: SNF Discharge Instructions General Discharge Information Code Status: Full Code Patient's Diet: Heart healthy Patient's Activity: As tolerated Follow-Up Instructions/Appts: Patient advised to follow-up with his PCP, firer watertender, sound cutter and rehabilitation case coordinator within a week after discharge. Medications at Discharge Discharge Medications: Stop taking the following medications: Insulin Glargine,Hum.rec.anlog (Lantus Solostar) 100 UNIT/ML (3 ML) INSULN.PEN SC TWICE DAILY Furosemide (Lasix) 20 MG TABLET ORAL DAILY Qty = 30 Prednisone (Prednisone) 20 MG TABLET ORAL DAILY Qty = 30 Diltiazem HCl (Cardizem Cd) 240 MG CAP.ER.24H ORAL DAILY Qty = 30 Continue taking these medications: Duloxetine HCl (Cymbalta) 60 MG CAPSULE. 1 Capsule ORAL DAILY Comments: Last Taken: 08/24/17 Time: 1030 AM Allopurinol (Allopurinol) 300 MG TABLET 1 Tablet ORAL DAILY Comments: Last Taken: 08/24/17 Time: 1030 AM Folic Acid (Folic Acid) 1 MG TABLET 1 Tablet ORAL TWICE DAILY Comments: Last Taken: 08/24/17 Time: 1030 AN Omeprazole (Omeprazole) 20 MG CAPSULE. 1 Capsule ORAL TWICE DAILY Comments: Last Taken: 08/24/17 Time: 1030 AM Lovastatin (Lovastatin) 40 MG TABLET 1 Tablet ORAL Every night Instructions: with food Comments: NOT GIVEN IN HOSPITAL Budesonide/Formoterol Fumarate (Symbicort 160-4.5 Mcg Inhaler) 160 MCG-4.5 MCG/ ACTUATION HFA.AER.AD 2 Puff Inhale through mouth TWICE DAILY Comments: Last Taken: 08/24/17 Time: 1030 AM Albuterol Sulfate (Albuterol Sulfate) 2.5 MG/3 ML (0.083 %) VIAL.NEB 1 Vial Inhale Solution 5 TIMES A DAY Comments: Last Taken: 08/24/17 @ 1030 Methotrexate (Methotrexate) 2.5 MG TABLET 6 Tablet ORAL EVERY SATURDAY Comments: NOT GIVEN AT HOSPITAL Oxycodone HCl/Acetaminophen (Oxycodone-Acetaminophen 10-325) 10 MG-325 MG TABLET 1 Tablet ORAL 4 times daily as needed as needed for PAIN Qty = 120 Comments: NOT GIVEN IN HOSPITAL Alendronate Sodium (Alendronate Sodium) 70 MG TABLET 1 Tablet ORAL EVERY SATURDAY Qty = 12 Instructions: in the morning, at least 30 minutes before the first food, beverage, or medication of the day Comments: NOT GIVEN THIS ADMISSION Cyanocobalamin (Vitamin B-12) (Cyanocobalamin Injection) 1,000 MCG/ML VIAL 1 Milliliters INTRAMUSC ONCE A MONTH Comments: NOT TAKEN IN HOSPITAL Tamsulosin HCl (Tamsulosin HCl) 0.4 MG CAP.ER.24H 1 Capsule ORAL Every night Comments: Last Taken: 08/23/17 Time: 10 PM Apixaban (Eliquis) 5 MG TABLET 1 Tablet ORAL TWICE DAILY Qty = 60 Comments: Last Taken: 08/24/17 Time: 1030 AM Metoprolol Tartrate (Lopressor) 100 MG TABLET 1 Tablet ORAL TWICE DAILY Qty = 60 Comments: Last Taken: 08/24/17 Time: 1030 AM Docusate Sodium (Stool Softener) 100 MG CAPSULE 1 Capsule ORAL TWICE DAILY Start taking the following new medications: Prednisone (Prednisone) 10 MG TABLET 10 Milligram ORAL DAILY Qty = 30 No Refills Furosemide (Lasix) 40 MG TABLET 40 Milligram ORAL TWICE DAILY Qty = 30 No Refills Insulin Detemir (Levemir) 100 UNIT/ML VIAL 16 Units SC TWICE DAILY Qty = 1 No Refills Insulin Aspart (Novolog) 100 UNIT/ML VIAL 0 Units SC BEFORE MEALS AND AT BEDTIME Qty = 1 No Refills Instructions: BEFORE MEALS Blood Insulin Sugar Units <80 0 81-150 8 151-200 10 201-250 12 251-300 13 301-350 14 351-400 15 >400 16 Call Doctor AT BEDTIME Blood Insulin Sugar Units <80 0 81-150 0 151-200 0 201-250 0 251-300 2 301-350 3 351-400 4 >400 5 Call Doctor Diltiazem HCl (Cardizem Cd) 120 MG CAP.ER.24H 120 Milligram ORAL DAILY Qty = 30 No Refills Digoxin (Digoxin) 125 MCG TABLET 1 Tablet ORAL DAILY Qty = 30 No Refills Copies To: Saadia TINEO,Tanmay Quintanilla; Wilner TINEO,Sindy; Lou TINEO,Remigio; Andre Mcgill MD
--- NOTE | 2017-09-24 16:54 | Patient Discharge Instructions ---
Discharge Instructions General Discharge Information You were seen/treated for: - Acute on chronic hypoxic respiratory and hypercapnic failure secondary to COPD exacerbation - Atrial fibrillation with rapid ventricular rate Special Instructions: Please follow-up with your PCP, tax clerk, maintenance welder and carton packaging machine operator within a week after discharge. Diet Continue normal diet: Yes Recommended Diet: Heart Healthy Activity Full Activity/No Limits: Yes Activity Self Limited: Yes Acute Coronary Syndrome Inclusion Criteria At DC or during hospital stay patient has or had the following: ACS DIAGNOSIS No Discharge Core Measures Meds if any: Prescribed or Continued at Discharge Meds if any: NOT Prescribed or Continued at Discharge Congestive Heart Failure Inclusion Criteria At DC or during hospital stay patient has or had the following: CHF DIAGNOSIS No Discharge Core Measures Meds if any: Prescribed or Continued at Discharge Meds if any: NOT Prescribed or Continued at Discharge Cerebrovascular accident Inclusion Criteria At DC or during hospital stay patient has or had the following: CVA/TIA Diagnosis No Discharge Core Measures Meds if any: Prescribed or Continued at Discharge Meds if any: NOT Prescribed or Continued at Discharge Venous thromboembolism Inclusion Criteria VTE Diagnosis No VTE Type NONE VTE Confirmed by (Test) NONE Discharge Core Measures - Per Current guidelines, there needs to be overlap - treatment for the first 5 days of Warfarin therapy. - If discharged on Warfarin prior to 5 days of - overlap therapy, the patient will need to be - assessed for post discharge needs including - *Post discharge parental anticoagulation - *Warfarin and/or parental anticoagulation education - *Follow up date to check INR post discharge At least 5 days overlap therapy as Inpatient No Meds if any: Prescribed or Continued at Discharge Note: Overlap Therapy is Warfarin and Anticoagulant Meds if any: NOT Prescribed or Continued at Discharge
[2017-09-24 22:10] VITALS: BP 106/62
--- NOTE | 2017-09-25 07:00 | PN- Housestaff ---
Kaveh Schmitz 09/25/17 0700: Subjective Follow-up For: Acute on chronic COPD exacerbation Subjective: Patient is constantly in a flutter yesterday heart rate ranged from 70-99, heart rate of 70 at 0600 this morning. Patient has no complaint of, denies headaches, shortness of breath, chest pain. patient is willing to go to rehab but states there are certain rehabilitation he will not go to. Review of Systems Constitutional: Reports: see HPI. Objective Last 24 Hrs of Vital Signs/I&O Vital Signs Date Time Temp Pulse Resp B/P B/P Pulse O2 O2 Flow FiO2 Mean Ox Delivery Rate 09/25 0711 97.8 86 20 102/64 97 Nasal Cannula 09/25 0037 97 98 09/25 0000 BIPAP 09/24 2324 99 09/24 2230 75 97 09/24 2210 98.2 78 20 106/62 96 Nasal Cannula 09/24 2043 90 100/58 09/24 2043 90 100/58 09/24 1639 96 Nasal 3.5L Cannula 09/24 1636 90 100/58 09/24 1636 90 100/58 09/24 1600 Nasal 3.5L Cannula 09/24 1447 97.8 90 20 100/58 95 14 1325 Nasal 3.0L Cannula 09/24 1217 108/60 09/24 0904 108/60 09/24 0835 96 Nasal 3.0L Cannula Intake & Output 09/25 1600 15 0800 09/25 0000 Intake Total 50 500 Output Total 2650 2100 Balance -2600 -1600 Intake, Oral 50 500 Output, Urine 2650 2100 Patient 264 lb Weight Weight Bed scale Measurement Method Physical Exam General Appearance: Alert, Oriented X3, Cooperative Cardiovascular: Regular Rate, Normal S1, Normal S2 Lungs: Clear to Auscultation, Normal Air Movement Abdomen: Normal Bowel Sounds, Soft, No Tenderness Extremities: +2 Pitting edema Assessment/Plan Assessment: Mr Claudio is a 72 year old man w/ a PMHx of COPD on nightly 2-3 L O2, HTN, Insulin dependent DM, CHF, Gout, RA on DMARD tx, current smoker, paroxysmal Afib , obstructive sleep apnea was sent to the emergency room by his visiting nurse when he was found to be hypotensive and tachycardic. He reported an episode of fall, but did not have any head injury. Problems: 1. Acute COPD Exacerbation, on 3.0L nasal cannula (refusing Bi-Pap) 2. Acute on chronic hypoxemic and hypercapnic respiratory failure 3. Atrial fibrillation 4. Diabetes mellitus 5. HFpEF 6. Leukocytosis- afebrile, no signs of infection, most likely due to prolonged predisone use Plan: -Continue Eliquis 5mg BID -Prednisone 10mg po - patient home dose, treatment for RA -Furosemide 40mg BID per patient's home dose -Digoxin 0.125 today (monitor K+ while on Furosemide) -Metoprolol 100mg PO BID- normal outpatient dose -Albuterol nebulizer Q4H -Atrovent Q4H -Continue Cymbalta 60mg -Insulin updated per endocrinology consult -Cardizem CD 120mg qDaily -patient will require outpatient ISABELA/Cardioversion -Start MiraLAX and senna S Patient has agreed to rehab at [facility] in [facility], plan to discharge patient to rehab today. Patient will require outpatient sleep study, outpatient ISABELA/ cardioversion. CODE STATUS: Full Code Patient on Eliquis for anticoagulation Diet: Consistent Carb I Problem List: 1. COPD with acute exacerbation Pain Ratin Pain Location: n/a Pain Goal: Remain pain free Pain Plan: tylenol Tomorrow's Labs & Rationales: n/a Priscilla Espinoza MD 09/25/17 0940: Attending MD Review Statement Attending Statement Attending MD Statement: examined this patient, discuss w/resident/PA/ASIC DESIGN ENGINEER, agreed w/resident/PA/ASIC DESIGN ENGINEER, reviewed EMR data (avail), discussed with nursing, discussed with case mgmt, reviewed images Attending Assessment/Plan: Patient remains in atrial flutter. When he tried to walk with PT yesterday he almost fell. He is now agreeable to rehab. He is finished his prednisone taper and is down to his usual 10 mg a day. We are keeping him on the low-dose Cardizem with a dig and metoprolol for rate control. He will go to rehab with close outpatient follow-up.
[2017-09-25 07:11] VITALS: BP 102/64
--- NOTE | 2017-09-25 07:22 | PN- Student ---
Subjective Subjective: Hospital day 11: Overnight, the telemonitor report showed the patient was in Atrial Flutter with rates from 70-92bpm. Currently in Atrial Flutter. Patient was interviewed and examined at bedside this morning. No acute events reported overnight. Patient was pleasant, appropriately responsive, and in no acute distress. The patient offers no complaints overnight and is agreeable to STR after PT attempted to work with the patient yesterday and he was unable to ambulate independently. Patient denies fevers, chills, nightsweats, chest pain, palpitations, shortness of breath, abdominal pain, and urinary symptoms Current Medications Sig/Lakisha Start time Last Medication Dose Route Stop Time Status Admin Albuterol Sulfate 3 ML EVERY 4 HRS/AWAKE 09/16 1199 AC 09/24 INH 2020 Allopurinol 300 MG DAILY 09/15 899 AC 09/24 PO 0905 Apixaban 5 MG BID 09/15 899 AC 09/24 PO 204 Atorvastatin Calcium 10 MG 1700 09/15 1700 AC 09/24 PO 1635 Budesonide/ 2 PUF BID 09/15 899 AC 09/24 Formoterol Fumarate INH 0908 Digoxin 0.125 MG 09/20 1700 AC 09/24 PO 1636 Diltiazem HCl 120 MG DAILY 09/25 06 AC 09/25 PO 0559 Diltiazem HCl 30 MG Q6 09/19 1200 DC 09/24 PO 09/25 0100 2324 Duloxetine HCl 60 MG DAILY 09/15 899 AC 09/24 PO 0905 Furosemide 40 MG BID 09/22 2099 AC 09/24 PO 2042 Insulin Aspart 0 TIDAC/HS 09/18 1700 AC 09/24 SC 1635 Insulin Detemir 16 UNITS BID 09/23 0900 AC 09/24 SC 2048 Ipratropium [place] 2.5 ML EVERY 4 HRS/AWAKE 09/15 1200 AC 09/24 INH 2020 Metoprolol Tartrate 100 MG BID 09/19 2100 AC 09/24 PO 2043 Omeprazole 20 MG BID 09/15 899 AC 09/24 PO 2043 Potassium Chloride 40 MEQ ONCE ONE 09/24 1200 DC 09/24 PO 09/24 1201 1217 Potassium Chloride 40 MEQ BID 09/23 2100 DC 09/24 PO 09/24 1000 0904 Prednisone 10 MG DAILY 09/25 09 AC PO 10/24 0901 Prednisone 20 MG DAILY 09/23 09 DC 09/24 PO 09/24 0901 0905 Sodium Chloride 2 SPRAY Q4P PRN 09/21 181 AC 09/24 CELSO 0909 Tamsulosin HCl 0.4 MG QPM 09/15 2099 AC 09/24 PO 2042 Allergies: Sulfa Drugs Objective Objective: Vital Signs Date Time Temp Pulse Resp B/P B/P Pulse O2 O2 Flow FiO2 Mean Ox Delivery Rate 09/25 07 97.8 86 20 102/64 97 Nasal Cannula 09/25 0037 97 98 09/25 0000 BIPAP 09/24 2324 99 09/24 2230 75 97 09/24 2210 98.2 78 20 106/62 96 Nasal Cannula 09/24 2043 90 100/58 09/24 2043 90 100/58 09/24 1639 96 Nasal 3.5L Cannula 09/24 1636 90 100/58 09/24 1636 90 100/58 09/24 1600 Nasal 3.5L Cannula 09/24 1447 97.8 90 20 100/58 95 09/24 1325 Nasal 3.0L Cannula 09/24 1217 108/60 09/24 0904 108/60 09/24 0835 96 Nasal 3.0L Cannula 09/24 0800 94 Nasal 3.5L Cannula Intake & Output 09/25 0800 09/25 0000 09/24 1600 Intake Total 50 500 500 Output Total 2650 2100 Balance -2600 -1600 500 Intake, Oral 50 500 500 Output, Urine 2650 2100 Patient 264 lb Weight Weight Bed scale Measurement Method Physical Exam General: NAD; Alert and Oriented x3; Appropriately responsive Skin: Warm; Dry; No rashes noted; Bruising noted on upper extremities HEENT: Normocephalic; Atraumatic Lungs: Wheezing and decreased breath sounds noted bilaterally with anterior and lateral approach Heart: Normal S1 and S2; Irregular rhythm; No murmurs, gallops, or rubs noted upon ausculatation Abdomen: No visible distention; Normoactive bowel sounds every 5-7 seconds in all four quadrants; Non-tender to palpation in all four quadrants; No masses noted with light and deep palpation Extremities: Normal pulses; Bilateral 2+ edema noted in both lower extremities; No clubbing Neuro: CN II-XII in tact Results Results: Laboratory Tests 09/25/17 0622: Digoxin 0.7 L 09/24/17 0621: Anion Gap 3 L, Estimated GFR > 60, BUN/Creatinine Ratio 36.3 H 09/23/17 0655: Anion Gap 4 L, Estimated GFR > 60, BUN/Creatinine Ratio 31.3 H, Magnesium 2.0, CBC w Diff NO MAN DIFF REQ, RBC 4.05 L, MCV 96.1 H, MCH 31.0, MCHC 32.2 L, RDW 17.3 H, MPV 8.8, Gran % 80.1 H, Lymphocytes % 11.8 L, Monocytes % 7.2, Eosinophils % 0.7, Basophils % 0.2, Absolute Granulocytes 9.2 H, Absolute Lymphocytes 1.4, Absolute Monocytes 0.8 H, Absolute Eosinophils 0.1, Absolute Basophils 0 CXR 09/14/17 IMPRESSION: 1. Bibasilar opacification, consider atelectasis, aspiration, or pneumonia. 2. Nonspecific bronchovascular prominence could reflect sequela of vascular congestion. No convincing overt pulmonary edema. Head CT 09/16/17 IMPRESSION: There are a few scattered chronic small vessel ischemic changes within the periventricular white matter. No evidence of acute territorial infarct or hemorrhage. Chest CT 09/16/17 IMPRESSION: 1. Mild centrilobular emphysema. 2. No evidence of acute pneumonia or pulmonary edema. 3. Small pleural effusions (right larger than left). Again noted is atelectasis in dependent aspect of right upper and right lower lobe. The small left pleural effusion has increased compared to 09/03/2017 and produces compressive atelectasis in the left lower lobe. Assessment/Plan Assessment: 72 y/o male with a PMH of COPD on 2.5L of home oxygen, hypertension, diabetes mellitus, rheumatoid arthritis on methotrexate, atrial flutter/ fibrillation on Eliquis, obstructive sleep apnea on CPAP, diastolic heart failure (prior hx EF 55%). He was brought in by ambulance with complaint of disorientation and lethargy and is currently being treated for Chronic Hypoxemic Hypercapnic Respiratory failure, Acute COPD exacerbation, Respiratory acidosis, Toxic/Metabolic Encephalopathy, as well as management of his chronic conditions. Plan: Chronic Hypoxemic Hypercapnic Respiratory failure w/ Respiratory Acidosis: 3.5L Oxygen by Nasal Cannula Continue BIPAP Acute COPD exacerbation: 3.5L Oxygen by Nasal Cannula Symbicort 2 puffs BID Inhaled Atrovent 2.5mL Q4hrs Proventil 3mL Q4hrs Toxic/Metabolic Encephalopathy: Continue BIPAP Diabetes Mellitus: Levemir 16units BID SC NovoLOG sliding scale SC coverage before meals and at bedtime Lipitor 10mg PO QD Per Endocrinology, Patient will be discharged with Humalog 75/25 - 25 units before breakfast and 25 units before dinner - Monitor FSGs 3x daily - And follow up in Endocrine office Atrial Fibrillation/Flutter: Eliquis 5mg PO BID Diltiazem 120mg PO QD Outpatient ISABELA/Cardioversion reccomended by Cardiology Diastolic Heart Failure: Digoxin 0.125mg PO QD Furosemide 40mg PO BID Rheumatoid Arthritis: Prednisone 10mg POP QD Chronic Gout Prophylaxis: Allpourinol 300mg PO QD Obstructive Sleep Apnea: Continue BIPAP Hypertension: Metoprolol Tartrate 100mg PO BID Esophageal Candidiasis: Nystatin 5mL QID Rinse and Swallow Benign Prostatic Hyperplasia: Tamsulosin 0.4mg PO QD DVT Prophylaxis: Eliquis 5mg PO BID for Anticoagulation Diet: Consistent Carb 1 Code Status: Full resucitation
[2017-09-25] MEDS ORDERED: LEVEMIR100 UNIT/1 SC (08:55)
[2017-09-25] MEDS ORDERED: NOVOLOG100 UNIT/2 SC (08:55)
--- NOTE | 2017-09-25 08:55 | PN- Pulmonary ---
Subjective HPI/Critical Care Issues: pt seen and examined had a fall, no sequelae feeling at respiratory baseline agreed to rehab no n/v/d/c no cp no cedeno Objective Current Medications: Current Medications Sig/Lakisha Start time Last Medication Dose Route Stop Time Status Admin Albuterol Sulfate 3 ML EVERY 4 HRS/AWAKE 09/15 1200 AC 09/25 INH 0830 Allopurinol 300 MG DAILY 09/15 0900 AC 09/25 PO 08 Apixaban 5 MG BID 09/15 0900 AC 09/25 PO 08 Atorvastatin Calcium 10 MG 1700 09/15 1700 AC 09/24 PO 1635 Budesonide/ 2 PUF BID 09/15 09 AC 09/25 Formoterol Fumarate INH 0827 Digoxin 0.125 MG 1700 09/20 1700 AC 09/24 PO 163 Diltiazem HCl 120 MG DAILY 09/25 06 AC 09/25 PO 0559 Diltiazem HCl 30 MG Q6 09/19 1200 DC 09/24 PO 09/25 0100 2324 Duloxetine HCl 60 MG DAILY 09/15 09 AC 09/25 PO 0827 Furosemide 40 MG BID 09/22 2100 AC 09/25 PO 0827 Insulin Aspart 0 TIDAC/HS 09/18 1700 AC 09/25 SC 0826 Insulin Detemir 16 UNITS BID 09/25 2100 AC SC Insulin Detemir 16 UNITS BID 09/23 0900 DC 09/25 SC 08 Ipratropium [place] 2.5 ML EVERY 4 HRS/AWAKE 09/15 1200 AC 09/25 INH 0830 Metoprolol Tartrate 100 MG BID 09/19 2100 AC 09/24 PO 2043 Omeprazole 20 MG BID 09/15 0900 AC 09/25 PO 0826 Potassium Chloride 40 MEQ ONCE ONE 09/24 1200 DC 09/24 PO 09/24 1201 1217 Potassium Chloride 40 MEQ BID 09/23 2100 DC 09/24 PO 09/24 1000 0904 Prednisone 10 MG DAILY 09/25 09 AC 09/25 PO 10/24 0901 0826 Prednisone 20 MG DAILY 09/23 09 DC 09/24 PO 09/24 0901 0905 Sodium Chloride 2 SPRAY Q4P PRN 09/21 1815 AC 09/24 CELSO 0909 Tamsulosin HCl 0.4 MG QPM 09/15 2100 AC 09/24 PO 204 Vital Signs & I&O Last 24 Hrs of Vitals and I&O: Vital Signs Date Time Temp Pulse Resp B/P B/P Pulse O2 O2 Flow FiO2 Mean Ox Delivery Rate 09/25 0835 97 Nasal 3.0L Cannula 09/25 0711 97.8 86 20 102/64 97 Nasal Cannula 09/25 0037 97 98 09/25 0000 BIPAP 09/24 2324 99 09/24 2230 75 97 09/24 2210 98.2 78 20 106/62 96 Nasal Cannula 09/24 2043 90 100/58 09/24 2043 90 100/58 09/24 1639 96 Nasal 3.5L Cannula 09/24 1636 90 100/58 09/24 1636 90 100/58 09/24 1600 Nasal 3.5L Cannula 09/24 1447 97.8 90 20 100/58 95 09/24 1325 Nasal 3.0L Cannula 09/24 1217 108/60 09/24 0904 108/60 Intake & Output 09/25 1600 09/25 0800 09/25 0000 Intake Total 50 500 Output Total 2650 2100 Balance -2600 -1600 Intake, Oral 50 500 Output, Urine 2650 2100 Patient 264 lb Weight Weight Bed scale Measurement Method Exam Other Physical Findings: gen-awake and alert heent-nasal cannula cvs-s1,s2, tachycardic lungs-rare rhonchi, diminished bases abd-soft,bs+ ext-trace edema Results Last 24 Hrs of Lab Results: Laboratory Tests 09/25/17 0622: Digoxin Pending Impression/Plan Impression/Plan Impression/Plan: Impression 72 year old man * chronic hypoxemic and hypercarbic respiratory failure * COPD returned to baseline * a.fib/flutter - on Eliquis * DM - Insulin dependent * RA - chronic pain Plan -nocturnal NIV, will need sleep study re-evaluation on an outpatient basis -maintain spo2 >92% -TRC/Nebs -maintain on 10mg prednisone (arthritis) -currently on Eliquis -hemodynamic monitoring - currently on cardizem -continue lasix -f/u cardiology -dc planning to rehab DVT prophylaxis at all times (On Eliquis) Full Code Of note - if patient requires any urethral catheterization this is to be done only with urology per patient request
--- NOTE | 2017-09-25 10:02 | PN- Diabetes ---
Assessment/Plan Diabetes Assessment: 72 y/o male with hx of COPD on home oxygen and predniosne 20 mg daily chronically, diabetes type 2 on Lantus 30 units twice a day only as outpatient as per Dr. Zee ( HbA1c was 8.5% in 05/2017). He was admitted for acute hypoxemic hypercapnic respiratory failure and was put on Solumedrol. His glucose levels were in the 300s and 400s. He was put on Levemir 30 units twice a day, Novolog coverage before meals and Novolog coverage at bedtime. Since 09/19/2017, he has been on prednisone taper--40 mg daily x 2 days, 30 mg daily x 2 days, etc . Currently he is on prednisone 20 mg per day. Starting today on 09/25, he will be on prednisone 10 mg daily. Levemir was further decreased to 16 units twice a day; Novolog coverage before meals and Novolov coverage at bedtime were adjusted.. Before Each Meal: Bolus Insulin: Novolog < 80 mg/dl: no coverage 80-100 mg/dl: 8 units 101-120 mg/dl: 8 units 121-150 mg/dl: 8 units 151-200 mg/dl: 10 units 201-250 mg/dl: 12 units 251-300 mg/dl: 13 units 301-350 mg/dl: 14 units 351-400 mg/dl: 15 units > 400 mg/dl: 16 units Bedtime: Bolus Insulin: Novolog < 80 mg/dl: no coveage 80-100 mg/dl: no coverage 101-120 mg/dl: no coverage 121-150 mg/dl: no coverage 151-200 mg/dl: no coverage 201-250 mg/dl: no coverage 251-300 mg/dl: 2 units 301-350 mg/dl: 3 units 351-400 mg/dl: 4 units > 400 mg/dl: 5 units His FSGs were 206, 200, 230, 243 and 213. Plan: In hospital: continue the current insulin regimen for now; monitor FSGs If patient will be discharged to home, the discharge plan for DM:: --- stop Lantus ---start Humalog 75 /25 mix insulin 25 units before breakfast and 25 units before dinner; ---monitor FSGs x 3 times a day. If patientwill be discharged to a rehab or assisted, the discharge plan for DM will be the same insulin regimen as inpatient. f/u in office after discharge. Subjective Subjective: He feels okay this morning. Objective Last 24 Hrs of Vital Signs/I&O Vital Signs Date Time Temp Pulse Resp B/P B/P Pulse O2 O2 Flow FiO2 Mean Ox Delivery Rate 09/25 0912 90 100/60 09/25 0835 97 Nasal 3.0L Cannula 09/25 0711 97.8 86 20 102/64 97 Nasal Cannula 09/25 0037 97 98 09/25 0000 BIPAP 09/24 2324 99 09/24 2230 75 97 09/24 2210 98.2 78 20 106/62 96 Nasal Cannula 09/24 2043 90 100/58 09/24 2043 90 100/58 09/24 1639 96 Nasal 3.5L Cannula 09/24 1636 90 100/58 09/24 1636 90 100/58 09/24 1600 Nasal 3.5L Cannula 09/24 1447 97.8 90 20 100/58 95 09/24 1325 Nasal 3.0L Cannula 09/24 1217 108/60 Intake & Output 09/25 1600 09/25 0800 09/25 0000 Intake Total 50 500 Output Total 2650 2100 Balance -2600 -1600 Intake, Oral 50 500 Output, Urine 2650 2100 Patient 264 lb Weight Weight Bed scale Measurement Method Findings Pertinent Lab/Kiel Results: Laboratory Tests 09/25 621 Toxicology Digoxin (0.8 - 2.0 ng/mL) 0.7 L
[2017-09-25 15:10] VITALS: BP 108/64
[2017-09-25 17:50] VITALS: BP 106/68
== END 2017-09-25 18:49 | DRG 190 ==
LOC: ERH 21:24 → CRI 22:50 → ERHI 22:50 → ENRESERV 23:59 → CRI 09-15 01:53 → ENTRNSPT 09-19 18:46 → EDTRNSPT 09-19 18:54 → EDTRNSPTSTS 09-19 18:54 → 1NO 09-19 19:04 → CMPTRNSPT 09-19 19:19 → 1NO 09-20 07:32 → ENPENDDIS 09-25 09:33 → 1NO 09-25 18:49
PROVIDERS: Emergency Medicine; Internal Medicine; Preventive Medicine Public Health & General Preventive Medicine; Student in an Organized Health Care Education/Training Program
DX: J44.1 Chronic obstructive pulmonary disease with (acute) exacerbation (principal); J96.21 Acute and chronic respiratory failure with hypoxia; G92 Toxic encephalopathy; J96.22 Acute and chronic respiratory failure with hypercapnia; I50.32 Chronic diastolic (congestive) heart failure; I48.92 Unspecified atrial flutter; E87.4 Mixed disorder of acid-base balance; B37.81 Candidal esophagitis; M06.9 Rheumatoid arthritis, unspecified; Z99.81 Dependence on supplemental oxygen; Z72.0 Tobacco use; I11.0 Hypertensive heart disease with heart failure; E11.65 Type 2 diabetes mellitus with hyperglycemia; I48.91 Unspecified atrial fibrillation; Z79.01 Long term (current) use of anticoagulants; E66.9 Obesity, unspecified; Z68.39 Body mass index [BMI] 39.0-39.9, adult; Z79.4 Long term (current) use of insulin; N40.0 Benign prostatic hyperplasia without lower urinary tract symptoms
CPT/HCPCS: 1NP; CCU; ERO; 36415; 36592; 71045; 80307; 81001; 82436; 87040; 87070; 87449; 87450; 93005; 93010; 94799; 96374; 96375; 97110-GO; 97116-GO; 97161-GP; 97530-GO; 99291; J0456; J0713; J1160; J1815; J1940; J2060; J2920; J2930; J3370; J3490; J7040; J7512

== ENCOUNTER 2017-10-24 13:54 | Inpatient (IN) | payer OTHER, MEDICARE ==
[~2017-10-24] VITALS: Ht 172.7 cm; Wt 107.5 kg
[~2017-10-24 13:54] MED LIST changes: +CARDIZEM CD120 M2 PO; +DIGOXIN125 MCG PO; +HUMALOG MI100 UNIT/1 IM; +LASIX40 M1 PO; +LEVEMIR100 UNIT/1 SC; +NOVOLOG100 UNIT/2 SC
[2017-10-24] MEDS ORDERED: FUROSEMIDE20 M1 PO (14:14)
[2017-10-24] MEDS ORDERED: HUMALOG MI100 UNIT/3 SC ×2 (14:15→14:16)
[2017-10-24 14:36] LABS: ABSOLUTE BASOPHIL COUNT 0 /CUMM (0.0-0.2); ABSOLUTE EOSINOPHIL COUNT 0.1 /CUMM (0.0-0.7); ABSOLUTE GRANULOCYTE CT 10.8 /CUMM (1.4-6.5); ABSOLUTE LYMPH COUNT 1.1 /CUMM (1.2-3.4); ABSOLUTE MONOCYTE COUNT 0.7 /CUMM (0.10-0.60); BASOPHIL % 0 % (0.0-2.0); EOSINOPHIL % 0.4 % (0-5); HEMATOCRIT 39.6 % (42-52); MEAN CORPUSCULAR HGB 30.5 PG (27.0-31.0); MEAN CORPUSCULAR HGB CONC 32.8 G/DL (33.0-37.0); MEAN CORPUSCULAR VOLUME 93.1 FL (80.0-94.0); MEAN PLATELET VOLUME 8.1 FL (7.4-10.4); PLATELET COUNT 173 /CUMM (130-400); RBC DISTRIBUTION WIDTH 15.9 % (11.5-14.5); RED BLOOD CELL CT 4.26 /CUMM (4.70-6.10); WHITE BLOOD CELL COUNT 12.6 /CUMM (4.8-10.8)
[2017-10-24 14:38] LABS: GRANULOCYTE % 85.1 % (42.2-75.2)
--- NOTE | 2017-10-24 15:02 | RADIOLOGY REPORT ---
EXAMINATION: XR PORTABLE CHEST CLINICAL INFORMATION: Shortness of breath. Presented diagnosis: Pneumonia/CHF. COMPARISON: CT dated 09/16/2017. Chest radiograph dated 09/03/2017 TECHNIQUE: Portable frontal view of the chest was obtained. FINDINGS: Lung volumes are normal. No consolidation, pneumothorax, or pleural effusion. Calcific atherosclerosis is present in the thoracic aorta. Heart is normal in size. Pulmonary vasculature is unremarkable. No acute osseous findings. IMPRESSION: No acute pulmonary findings.
--- NOTE | 2017-10-24 15:48 | ED DYSPNEA/ASTHMA COMPLAINT ---
History of Present Illness General Chief Complaint: Dyspnea (COPD, CHF, Other) Stated Complaint: BIBA FOR SOB Source: patient Exam Limitations: no limitations Vital Signs & Intake/Output Vital Signs & Intake/Output Vital Signs Date Time Temp Pulse Resp B/P B/P Pulse O2 O2 Flow FiO2 Mean Ox Delivery Rate 10/24 1615 97.0 79 18 111/55 95 Aerosol 10L Mask 10/24 1605 93 Nasal 3.0L Cannula 10/24 1407 94 Nasal 3.0L Cannula 10/24 1406 98.4 69 22 128/83 94 Nasal 3.0L Cannula Allergies Coded Allergies: Sulfa (Sulfonamide Antibiotics) (Intermediate, RASH/HIVES 06/06/17) Reconcile Medications Albuterol Sulfate 2.5 MG/3 ML (0.083 %) VIAL.NEB 1 Vial INH/TAPAN 5 TIMES A DAY COPD (Reported) Alendronate Sodium 70 MG TABLET 1 TAB PO QTHURS BONES (Reported) in the morning, at least 30 minutes before the first food, beverage, or medication of the day Allopurinol 300 MG TABLET 1 TAB PO DAILY GOUT (Reported) Apixaban (Eliquis) 5 MG TABLET 1 TAB PO BID Atrial Fibrilliation Budesonide/Formoterol Fumarate (Symbicort 160-4.5 Mcg Inhaler) 160 MCG-4.5 MCG/ ACTUATION HFA.AER.AD 2 PUF INH BID COPD (Reported) Digoxin 125 MCG TABLET 1 TAB PO DAILY HEART Diltiazem HCl (Cardizem Cd) 120 MG CAP.ER.24H 120 MG PO DAILY HEART Docusate Sodium (Stool Softener) 100 MG CAPSULE 1 CAP PO QPM STOOL SOFTENER ( Reported) Duloxetine HCl (Cymbalta) 60 MG CAPSULE.DR 1 CAP PO DAILY MENTAL HEALTH ( Reported) Folic Acid 1 MG TABLET 1 TAB PO BID SUPPLEMENT (Reported) Furosemide 20 MG TABLET 3 TAB PO DAILY WATER RETENTION (Reported) Insulin NPL/Insulin Lispro (Humalog Mix 75-25 Kwikpen) 100 UNIT/ML (75-25) INSULN.PEN 35 UNITS SC DAILY DIABETES (Reported) Insulin NPL/Insulin Lispro (Humalog Mix 75-25 Kwikpen) 100 UNIT/ML (75-25) INSULN.PEN 30 UNITS SC QPM DIABETES (Reported) Lovastatin 40 MG TABLET 1 TAB PO QPM CHOLESTEROL (Reported) with food Methotrexate 2.5 MG TABLET 6 TAB PO QTHURS RA (Reported) Metoprolol Tartrate (Lopressor) 100 MG TABLET 1 TAB PO BID heart (Reported) Omeprazole 20 MG CAPSULE.DR 1 CAP PO BID GI (Reported) Oxycodone HCl/Acetaminophen (Oxycodone-Acetaminophen 10-325) 10 MG-325 MG TABLET 1 TAB PO 4XDP PRN PAIN (Reported) Prednisone 10 MG TABLET 10 MG PO DAILY Rheumatoid Arthritis Tamsulosin HCl 0.4 MG CAP.ER.24H 1 CAP PO QPM BPH (Reported) Triage Note: PT BIBA FROM HOME WITH C/O RESPIRATORY DIFFICULTY WITH SHORT-TERM AMS. EMS REPORTS THAT PT IS SUPPOSED TO WEAR CPAP AT NIGHT, BUT REGULARLY DOESN'T PER PT'S OWN REPORT. THIS AM, PT NOTED HIM TO BE LETHARGIC AND O2 SAT WAS IN 70's. FAMILY ATTEMPTED TO APPLY CPAP WITHOUT RESULT AND PT BECAME COMBATIVE AND ARGUMENTATIVE WITH FAMILY, NRB THEN APPLIED WITH IMPROVEMENT IN O2 SAT TO 100%. PT ON 2.5L DURING THE DAY AT BASELINE AND ARRIVED IN ED ON3L NC. PT AWAKE, ALERT, APPROPRIATE. DENIES RESPIRATORY DIFFICULTY AT THIS TIME. AMBULATORY TO STRETCHER. O2 SAT ON ARRIVAL 94% ON 3L Triage Nurses Notes Reviewed? yes Onset: Abrupt Duration: day(s): (1-2) Timing: recent history Severity: mild, moderate Activities at Onset: rest Prior Episodes/Possible Cause: frequent episodes Modifying Factors: Worsens With: movement. Associated Symptoms: cough, wheezing HPI: 72-year-old male history of diabetes, sleep apnea, COPD, hypertension, atrial fibrillation presents for evaluation of shortness of breath and altered mental status. According to the patient's family member patient was acutely agitated and altered this morning. He was found to have an oxygen saturation in the 70s. They tried to place him on CPAP but this did not work. EMS was called and they placed him on high flow oxygen to bring his oxygen saturation to 100. Patient gradually returned to his baseline. He reports shortness of breath is worse with any type of exertion including moving around the bed. He also has a dry cough. No fevers no hemoptysis no chest pain. No nausea vomiting no lower extremity edema. Patient was recently admitted last month for a COPD exacerbation and discharged to rehabilitation. He's been home for about a week. He is noncompliant with CPAP. (Tayo Robles) Past History Travel History [place] past [place] No Medical History Any Pertinent Medical History? 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 Refer elsewhere in this and other documents for additional details. According to the patient's report he was asymptomatic and functionally unrestricted by his back prior to this injury. He did have functional limitation and restriction because of his other medical conditions. Refer to other inpatient and outpatient medical records for details regarding pre-injury functional status and deficits. History of MRSA: No History of VRE: Yes History of CDIFF: No Surgical History Surgical History: N (jjjg) Psychosocial History Who do you live with Spouse Services at Home Nursing, Oxygen (2.5 liters) What is your primary language Macedonian Tobacco Use: Never used Family History Family History, If Any: MOTHER FHx: cancer Hx Contributory? No (Tayo Robles) Review of Systems Review of Systems Constitutional: Reports: no symptoms. EENTM: Reports: no symptoms. Respiratory: Reports: see HPI, cough, short of breath, wheezing. Cardiovascular: Reports: no symptoms. GI: Reports: no symptoms. Genitourinary: Reports: no symptoms. Musculoskeletal: Reports: no symptoms. Skin: Reports: no symptoms. Neurological/Psychological: Reports: no symptoms. Hematologic/Endocrine: Reports: no symptoms. Immunologic/Allergic: Reports: no symptoms. All Other Systems: Reviewed and Negative (Tayo Robles) Physical Exam Physical Exam General Appearance: well developed/nourished, no apparent distress, alert, awake , obese Head: atraumatic, normal appearance Eyes: Bilateral: normal appearance, PERRL, EOMI. Ears, Nose, Throat: normal pharynx, normal ENT inspection, hearing grossly normal Neck: normal inspection, supple, full range of motion Respiratory: chest non-tender, no respiratory distress, quiet respiration, decreased breath sounds, wheezing Cardiovascular: regular rate/rhythm, normal peripheral pulses Peripheral Pulses: 2+ radial (R), 2+ radial (L) Gastrointestinal: soft, non-tender Extremities: normal inspection, normal range of motion, no edema Neurologic/Psych: no motor/sensory deficits, awake, alert, oriented x 3 Skin: intact, normal color, warm/dry Core Measures ACS in differential dx? No CVA/TIA Diagnosis No Sepsis Present: No Sepsis Focused Exam Completed? No (Toan PRITCHARD,Tayo) Progress Differential Diagnosis: asthma, AMI, bronchitis, CHF, COPD, pulmonary embolism, pneumonia, pneumothorax, rib fracture, unstable angina Plan of Care: Orders Procedure Date/time Status Patient Data 10/[address] HEAD WO IV CONTRAST 10/24 1542 Active ARTERIAL BLOOD GAS (GEN) 10/24 1539 Active Add-on Test (ER Only) 10/24 1537 Active LACTIC ACID 10/24 1424 Complete URINALYSIS 10/24 1411 Active TROPONIN LEVEL 10/24 1411 Complete COMPREHENSIVE METABOLIC PANEL 10/24 1411 Complete CBC WITHOUT DIFFERENTIAL 10/24 1411 Complete EKG 10/24 1355 Active Laboratory Tests 10/24/17 1600: pH 7.42, pCO2 51 H, pO2 77 L, HCO3 33 H, ABG O2 Sat (Measured) 93.0 L, P-50 (Temp Corrected) N, Carboxyhemoglobin 1.7, O2 Concentration % 3L, Temperature 98.4, O2 Delivery Method NC, Phlebotomy Draw Site RIGHT RADIAL 10/24/17 1424: Lactic Acid 1.1 10/24/17 1424: Anion Gap 8, Estimated GFR > 60, BUN/Creatinine Ratio 28.3 H, Glucose 193 H, Calcium 9.0, Total Bilirubin 0.8, AST 27, ALT 30, Alkaline Phosphatase 66, Troponin I 0.01, Total Protein 5.9 L, Albumin 3.5, Globulin 2.4, Albumin/ Globulin Ratio 1.5, CBC w Diff NO MAN DIFF REQ, RBC 4.26 L, MCV 93.1, MCH 30.5, MCHC 32.8 L, RDW 15.9 H, MPV 8.1, Gran % 85.1 H, Lymphocytes % 8.7 L, Monocytes % 5.8, Eosinophils % 0.4, Basophils % 0, Absolute Granulocytes 10.8 H , Absolute Lymphocytes 1.1 L, Absolute Monocytes 0.7 H, Absolute Eosinophils 0.1, Absolute Basophils 0 Patient is here for evaluation of shortness of breath and altered mental status. He is a long history of COPD. He was altered agitated and combative this morning when he was found to be hypoxic to 70% on 3 L nasal cannula. Currently patient appears at his baseline satting at 90-93% on room air while at rest. Labs are unremarkable including an ABG. Head CT was ordered chest x-ray is clear patient was given DuoNeb and IV steroids. Patient is currently on oral prednisone and is still having significant exacerbations. Due to the patient's significant medical history episode of hypoxia and altered mental status he will require admission for serial labs pulmonology consult [facility] case management medication adjustment. Case discussed with Dr. Lozoya he agrees Diagnostic Imaging: Viewed by Me: CT Scan. Discussed w/RAD: CT Scan. Radiology Impression: PATIENT: JANETTE PAEZ PRESENT AGE: 72 PATIENT ACCOUNT NO: [id number] : 43 LOCATION: [facility] ORDERING PHYSICIAN: Tayo PRITCHARD SERVICE DATE: 10/24/17 EXAM TYPE: RAD - XRY- PORTABLE CHEST XRAY EXAMINATION: XR PORTABLE CHEST CLINICAL INFORMATION: Shortness of breath. Presented diagnosis: Pneumonia/CHF. COMPARISON: CT dated 09/16/2017. Chest radiograph dated 09/03/2017 TECHNIQUE: Portable frontal view of the chest was obtained. FINDINGS: Lung volumes are normal. No consolidation, pneumothorax, or pleural effusion. Calcific atherosclerosis is present in the thoracic aorta. Heart is normal in size. Pulmonary vasculature is unremarkable. No acute osseous findings. IMPRESSION: No acute pulmonary findings. DICTATED BY: Bryant Rosenberg MD DATE/TIME DICTATED:10/24/171455 [employer]AP[employer] OPERATOR:FINA DATE/TIME TRANSCRIBED:10/24/171455 CONFIDENTIAL, DO NOT COPY WITHOUT APPROPRIATE AUTHORIZATION. <Electronically signed in Other Vendor System> SIGNED BY: Bryant Rosenberg MD 10/24/17 0365 Initial ED EKG: normal sinus rhythm, lvh with secondary repolarization abn (Toan PRITCHARD,Tayo) Departure Departure Disposition: STILL A PATIENT Condition: Stable Clinical Impression Primary Impression: COPD exacerbation Referrals: Saadia TINEO,Tanmay Quintanilla (PCP/Family) Departure Forms: Customer Survey General Discharge Information Observation Note Spoke With: Daniella Perry MD Physician Advisor Notified: MITCHEL LOZOYA DO Place Patient In: Non-ED OBS Care Area Rationale for Observation: My rational for observation is as follows [IV steroids DuoNeb home monitoring of vital signs, CPAP, pulmonology consult case management consult physical therapy consult (Tayo Robles) Admission Note Spoke With: Daniella Perry MD Documentation of Exam: Documentation of any treatments & extenuating circumstances including Concerns Regarding Discharge (functional status, medication knowledge or non-compliance, living conditions, etc.) that warrant an admission rather than observation: [The patient needs admission for oxygen, continuous pulse oximetry, respiratory nebulizer treatments every 4 hours, intravenous steroids] The patient was profoundly hypoxic and was dramatically improved on BiPAP upon my evaluation. He was awake and alert. (Mitchel Lozoya DO) Critical Care Note Critical Care Note Critical Care Time: non-applicable (Tayo Robles)
--- NOTE | 2017-10-24 16:41 | CT SCAN REPORT ---
EXAMINATION: CT HEAD WITHOUT CONTRAST CLINICAL INFORMATION: Altered mental status. COMPARISON: Head CT 09/16/2017. TECHNIQUE: Contiguous axial imaging was performed from the skull base to vertex without intravenous administration of contrast. DLP: 616 mGy-cm. FINDINGS: There is no intracranial hemorrhage, large infarction, or mass lesion. There is no extra-axial collection. There is mild scattered hypoattenuation in the bilateral cerebral white matter, which is nonspecific but likely reflects small vessel disease. There is mild diffuse brain parenchymal volume loss with prominence of the ventricles and sulci. 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 The paranasal sinuses are otherwise clear. The mastoid air cells are clear. There are atherosclerotic calcification of the carotid siphons and vertebral arteries. IMPRESSION: No acute intracranial abnormality. Mild small vessel ischemic changes and mild diffuse brain parenchymal volume loss.
--- NOTE | 2017-10-24 16:51 | History & Physical ---
Molly Church 10/24/17 4926: General Information and HPI MD Statement: I have seen and personally examined JANETTE PAEZ and documented this H&P. The patient is a 72 year old M who presented with a patient stated chief complaint of shortness of breath. History of Present Illness: 72-year-old gentleman with past medical history of COPD on 2-3 L of home oxygen, hypertension, diabetes mellitus, rheumatoid arthritis on methotrexate, atrial flutter/fibrillation on Eliquis, obstructive sleep apnea on CPAP, diastolic heart failure (prior hx EF 55%). According to the patient's family member patient was acutely agitated and altered this morning. He was found to have an oxygen saturation in the 70s as per documentation. They tried to place him on CPAP but this did not work. EMS was called and they placed him on high flow oxygen to bring his oxygen saturation to 100. Patient gradually returned to his baseline. Patient is a poor historian. Speaking to the patient, he claims he "lost his marbles" and does not recall what had happened. He did not report significant shortness of breath at the time of assessment saturating well on 3L NC. He has a productive cough but is not able to produce the sputum and claims his throat has been bothering him. No fevers, hemoptysis or chest pain reported. Denies nausea vomiting or recent lower extremity edema. Patient was recently admitted last month for a COPD exacerbation and discharged to rehabilitation and recently returned home. He is noncompliant with CPAP. Patient quit smoking but has smoked pack half a day for 40 years prior to quitting. Previous admission 09/14-09/25: ICU to telemetry antibiotics were narrowed down to azithromycin after pneumonia was ruled out by CT chest Azithromycin was continued mainly for COPD. He was also started on IV Solu-Medrol later switched to prednisone and tapered gradually. He was continued on prednisone 10 mg daily which she has been taking for rheumatoid arthritis. Elevated heart rates at that time. Cardiology consult was obtained and he was initially started on Cardizem drip. Discharged home on metoprolol, Cardizem and digoxin with outpatient follow up with cardiology. Continued home dose of Eliquis. 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 Rene Galan on Eliquis *Further information can be obtained from his : Sumaya [phone]& Allergies/Medications Allergies: Coded Allergies: Sulfa (Sulfonamide Antibiotics) (Intermediate, RASH/HIVES 06/06/17) Home Med list Albuterol Sulfate 2.5 MG/3 ML (0.083 %) VIAL.NEB 1 Vial INH/TAPAN 5 TIMES A DAY COPD (Reported) Alendronate Sodium 70 MG TABLET 1 TAB PO QTHURS BONES (Reported) in the morning, at least 30 minutes before the first food, beverage, or medication of the day Allopurinol 300 MG TABLET 1 TAB PO DAILY GOUT (Reported) Apixaban (Eliquis) 5 MG TABLET 1 TAB PO BID Atrial Fibrilliation Budesonide/Formoterol Fumarate (Symbicort 160-4.5 Mcg Inhaler) 160 MCG-4.5 MCG/ ACTUATION HFA.AER.AD 2 PUF INH BID COPD (Reported) Digoxin 125 MCG TABLET 1 TAB PO DAILY HEART Diltiazem HCl (Cardizem Cd) 120 MG CAP.ER.24H 120 MG PO DAILY HEART Docusate Sodium (Stool Softener) 100 MG CAPSULE 1 CAP PO QPM STOOL SOFTENER ( Reported) Duloxetine HCl (Cymbalta) 60 MG CAPSULE. 1 CAP PO DAILY MENTAL HEALTH ( Reported) Folic Acid 1 MG TABLET 1 TAB PO BID SUPPLEMENT (Reported) Furosemide 20 MG TABLET 3 TAB PO DAILY WATER RETENTION (Reported) Insulin NPL/Insulin Lispro (Humalog Mix 75-25 Kwikpen) 100 UNIT/ML (75-25) INSULN.PEN 35 UNITS SC DAILY DIABETES (Reported) Insulin NPL/Insulin Lispro (Humalog Mix 75-25 Kwikpen) 100 UNIT/ML (75-25) INSULN.PEN 30 UNITS SC QPM DIABETES (Reported) Lovastatin 40 MG TABLET 1 TAB PO QPM CHOLESTEROL (Reported) with food Methotrexate 2.5 MG TABLET 6 TAB PO QTHURS RA (Reported) Metoprolol Tartrate (Lopressor) 100 MG TABLET 1 TAB PO BID heart (Reported) Omeprazole 20 MG CAPSULE. 1 CAP PO BID GI (Reported) Oxycodone HCl/Acetaminophen (Oxycodone-Acetaminophen 10-325) 10 MG-325 MG TABLET 1 TAB PO 4XDP PRN PAIN (Reported) Prednisone 10 MG TABLET 10 MG PO DAILY Rheumatoid Arthritis Tamsulosin HCl 0.4 MG CAP.ER.24H 1 CAP PO QPM BPH (Reported) Past History Travel History [place]ed to [place] past 21 day No Medical History Neurological: NONE EENT: NONE Cardiovascular: AFIB, CHF, hypertension Respiratory: COPD, obstructive sleep apnea, with ongoing tobacco use disorder 02 DEPENDANT Gastrointestinal: NONE Hepatic: NONE Renal: benign prost hyperplasia Musculoskeletal: rheumatoid arthritis Psychiatric: NONE Endocrine: INSULIN DEPENDENT DIABETIC TYPE II Blood Disorders: NONE Cancer(s): BASAL CELL 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 Refer elsewhere in this and other documents for additional details. According to the patient's report he was asymptomatic and functionally unrestricted by his back prior to this injury. He did have functional limitation and restriction because of his other medical conditions. Refer to other inpatient and outpatient medical records for details regarding pre-injury functional status and deficits. History of MRSA: No History of VRE: Yes History of CDIFF: No Surgical History Surgical History: N ([id number]) Past Family/Social History Family History Relations & Conditions if any MOTHER FHx: cancer Psychosocial History Who Do You Live With? spouse Services at Home: Nursing, Oxygen (2.5 liters) Functional Ability Ambulation: independent, Ambulatory distance was limited by pulmonary condition and not by any spinal symptoms prior to this injury. Pre-injury functional ability is detailed in "Other Medical Hx" section. Review of Systems Review of Systems Constitutional: Denies: see HPI. Exam & Diagnostic Data Last 24 Hrs of Vital Signs/I&O Vital Signs Date Time Temp Pulse Resp B/P B/P Pulse O2 O2 Flow FiO2 Mean Ox Delivery Rate 10/24 1627 98.5 70 18 106/57 95 Nasal 3.0L Cannula 10/24 1615 97.0 79 18 111/55 95 Aerosol 10L Mask 10/24 1605 93 Nasal 3.0L Cannula 10/24 1407 94 Nasal 3.0L Cannula 10/24 1406 98.4 69 22 128/83 94 Nasal 3.0L Cannula Intake & Output 10/24 1600 10/24 0800 10/24 0000 Intake Total 0 Output Total Balance 0 Intake, Oral 0 Physical Exam General Appearance Alert, Oriented X3, Cooperative, No Acute Distress, on 3L NC Skin No Rashes, No Breakdown Skin Temp/Moisture Exam: Warm/Dry HEENT PERRLA, EOMI, Mucous Membr. moist/pink Neck Supple Cardiovascular Normal S1, Normal S2, irregular Lungs decreased breath sounds in bilateral lung douglas; no wheezing appreciated; no crackles/ronchi Abdomen Distended, soft, normal bowel sounds Nontender Neurological Normal Speech, Strength at 5/5 X4 Ext, Normal Tone, Alert and oriented but does not recall information Extremities Trace pedal edema in lower extremities Vascular Normal Pulses, Pulses Symmetrical Last 24 Hrs of Labs/Kiel: Laboratory Tests 10/24/17 1600: pH 7.42, pCO2 51 H, pO2 77 L, HCO3 33 H, ABG O2 Sat (Measured) 93.0 L, P-50 (Temp Corrected) N, Carboxyhemoglobin 1.7, O2 Concentration % 3L, Temperature 98.4, O2 Delivery Method NC, Phlebotomy Draw Site RIGHT RADIAL 10/24/17 1424: Lactic Acid 1.1 10/24/17 1424: Anion Gap 8, Estimated GFR > 60, BUN/Creatinine Ratio 28.3 H, Glucose 193 H, Hemoglobin A1c Pending, Calcium 9.0, Total Bilirubin 0.8, AST 27, ALT 30, Alkaline Phosphatase 66, Troponin I 0.01, Total Protein 5.9 L, Albumin 3.5, Globulin 2.4, Albumin/Globulin Ratio 1.5, CBC w Diff NO MAN DIFF REQ, RBC 4.26 L, MCV 93.1, MCH 30.5, MCHC 32.8 L, RDW 15.9 H, MPV 8.1, Gran % 85.1 H, Lymphocytes % 8.7 L, Monocytes % 5.8, Eosinophils % 0.4, Basophils % 0, Absolute Granulocytes 10.8 H, Absolute Lymphocytes 1.1 L, Absolute Monocytes 0.7 H, Absolute Eosinophils 0.1, Absolute Basophils 0 Microbiology 10/24 1648 URINE ROUT: Legionella Antigen - ORD 10/24 1648 URINE ROUT: Streptococcus pneumoniae Antigen (M - ORD 10/24 1648 LOWER RESP: Respiratory Culture - ORD 10/24 1648 LOWER RESP: Gram Stain - ORD Assessment/Plan Assessment: 72-year-old gentleman with past medical history of COPD on 2-3 L of home oxygen, hypertension, diabetes mellitus, rheumatoid arthritis on methotrexate, atrial flutter/fibrillation on Eliquis, obstructive sleep apnea on CPAP, diastolic heart failure (prior hx EF 55%). Patient was recently admitted last month for a COPD exacerbation and discharged to rehabilitation and home for about a week. He is noncompliant with CPAP. Found to be lethargic at home with decreased saturations, high flow by EMS and returned to baseline O2 on assessment. Emergency Department: Proventil, Atrovet, Solumeedrol IV 125 x1 Vitals: 98.4, 69, 22, 128/83 3L NC 95% Blood Gas: pH 7.42, PcO2 51, Po2 77, HCO3 33, ABG O2 93 Labs: WBC 12.6 (on prednisone), hgb 13.0, hct 39.6, PLt 173 Chem: 139, 3.6, 93, 38, 8, 17, 0.6 CXR: No acute pulmonary findings. Observation on general medicine floor: PROBLEM LIST: 1. COPD Exacerbation 2. History of Atrial Flutter/Fibrillation 3. Diastolic CHF (lasix, statin, metoprolol) 4. History of HTN 5. DM 6. Gout/RA 7. BPH COPD Exacerbation Patient with COPD on baseline 2-3L with multiple admissions in the past and recent discharge 09/25/17 returned by EMS after being found to be altered with decreased saturations reported at home. Patient returned to normal O2 baseline on assesment alert and oriented. CXR clear. Mild leukocytosis likely due to chronic prednisone/methotrexate for rheumatoid arthritis. * IV Solumedrol 40 q8 * IV Azithromycin * TRC/Nebs as yes8mck * Continue to monitor O2 saturations * Advise Pulmonology of patient * Follow up legionella antigen, strep antigen, respiratory cultures/stain H/O Atrial Flutter/Fibrillation * Continue on metoprolol, cardizem, digoxin, eliquis Diastolic CHF Previous EF 55%. Patients claims he no longer follows with Dr. López. * Continue cardizem, metoprolol, digoxin, eliquis * F/U Digoxin level Hypertension * Continue metoprolol, cardizem, digoxin, eliquis Diabetes Mellitus * Accu-Checks * ISS (Medium) * Consistent Carbohydrate 2 Diet Gout/RA * Continue Allopurinol, methotrexate and steroids BPH * Continue Tamsulosin Code Status: DNR DNI - as per patient and Sumaya DVT PPx: Eliquis Diet: CC3 As Ranked By This Provider Problem List: 1. Rheumatoid arthritis 2. Diabetes 3. Hypertension 4. Hyperlipidemia 5. COPD exacerbation 6. COPD exacerbation 7. CHF (congestive heart failure) Core Measures/Misc (10/28) Acute Coronary Syndrome ACS Diagnosis: No Congestive Heart Failure Congestive Heart Failure Diagnosis No Cerebrovascular Accident CVA/TIA Diagnosis: No VTE (View Protocol) VTE Risk Factors Age>40 No Mechanical VTE Prophylaxis d/t Other No VTE Pharm Prophylaxis d/t Other Sepsis (View protocol) Sepsis Present: No If YES complete Sepsis Event Note If YES complete Sepsis Event Note Jonathan TINEO,[facility] 10/24/17 1756: Core Measures/Misc (10/28) Sepsis (View protocol) If YES complete Sepsis Event Note If YES complete Sepsis Event Note Resident Review Statement Resident Statement: examined this patient, discussed with internal revenue service agent, agreed with internal revenue service agent Other Findings: 72-year-old gentleman with a significant past medical history of COPD on 2-3 L home oxygen and multiple admissions for COPD exacerbation, A. fib on Eliquis, hypertension, rheumatoid arthritis on methotrexate, obstructive sleep apnea noncompliant with CPAP, diastolic heart failure with a recent echo showing EF of 55%, is BIBA after being found to have 02 sats in 70s which required high flow nasal. On presentation he is afebrile, no recent upper respiratory infection, no sick contacts, no recent travel. Impression * Acute on chronic hypoxia as evident by O2 saturations in the 70s requiring increased oxygen demand from his baseline to high flow nasal. * Acute exacerbation of COPD. * History of chronic disease; hypertension, CHF, COPD and arthritis. Plan Place in observation O2 supplementation to keep sats above 90% Status post Solu-Medrol 120 once, will continue with every 8 hours hold home oral prednisone 10mg dose Azithromycin 500 mg IV TRC nebs Nocturnal CPAP settings to be decided once for family brings CPAP machine. Carbohydrate diet NovoLog sliding scale Accu-Chek 3 times daily and bedtime Continue home meds for chronic disease DVT prophylaxis; addressed by apixaban CODE STATUS: DNR/DNI. Orlando TINEO,Daniella 10/25/17 1315: Core Measures/Misc (10/28) Sepsis (View protocol) If YES complete Sepsis Event Note If YES complete Sepsis Event Note Attending MD Review Statement Attending Statement Attending MD Statement: examined this patient, discuss w/resident/PA/AIR SURVEILLANCE OPERATOR, agreed w/resident/PA/AIR SURVEILLANCE OPERATOR, reviewed EMR data (avail), discussed with nursing, discussed with case mgmt, reviewed images, amended to note Attending Assessment/Plan: Agree with above. Please see my separate addendum.
--- NOTE | 2017-10-24 17:51 | PN- Att Addend ---
Attending Addendum Attending Brief Note 72 y/o M with pmh sig for ch resp failure, COPD, obstructive sleep apnea, with ongoing tobacco use disorder, 02 DEPENDANT, AFIB, ch diastolic CHF, hypertension , Insulin dependent diabetes, was brought in because he was found to be confused and short of breath. But he checked his O2 sats at home it was found to be 70. Apparently patient is noncompliant with his CPAP. Family tried to put back him on CPAP but he did not improve and he was agitated. Patient himself does not remember much. EMS was called and they put him on high flow oxygen. Once his oxygen saturations improved, his mental status started to get better. In the emergency room patient is currently on his baseline oxygen and did not require any CPAP or BiPAP. He denies any shortness of breath, any orthopnea or PND. Vital Signs Date Time Temp Pulse Resp B/P B/P Pulse O2 O2 Flow FiO2 Mean Ox Delivery Rate 10/24 1627 98.5 70 18 106/57 95 Nasal 3.0L Cannula 10/24 1615 97.0 79 18 111/55 95 Aerosol 10L Mask 10/24 1605 93 Nasal 3.0L Cannula 10/24 1407 94 Nasal 3.0L Cannula 10/24 1406 98.4 69 22 128/83 94 Nasal 3.0L Cannula on exam: awake, nad. cv; s1,s2, rrr. resp; decresaed bs overall. abd; soft, nt, bs+ ext trace edema Laboratory Tests 10/24 10/24 10/24 1600 1424 1424 Blood Gas pH (7.35 - 7.45 PH) 7.42 pCO2 (35 - 45 TORR) 51 H pO2 (80 - 100 TORR) 77 L HCO3 (21 - 28 MEQ/L) 33 H ABG O2 Sat (Measured) (>96.0 %) 93.0 L P-50 (Temp Corrected) N Carboxyhemoglobin (1.5 - 5.0 %) 1.7 O2 Concentration % 3L Temperature (97.0 - 100.0 FARH) 98.4 O2 Delivery Method NC Chemistry Sodium (137 - 145 mmol/L) 139 Potassium (3.5 - 5.1 mmol/L) 3.6 Chloride (98 - 107 mmol/L) 93 L Carbon Dioxide (22 - 30 mmol/L) 38 H Anion Gap (5 - 16) 8 BUN (9 - 20 mg/dL) 17 Creatinine (0.7 - 1.2 mg/dL) 0.6 L Estimated GFR (>60 ml/min) > 60 BUN/Creatinine Ratio (7 - 25 %) 28.3 H Glucose (65 - 99 mg/dL) 193 H Hemoglobin A1c (4.2 - 5.8 %) Pending Lactic Acid (0.7 - 2.1 mmol/L) 1.1 Calcium (8.4 - 10.2 mg/dL) 9.0 Total Bilirubin (0.2 - 1.3 mg/dL) 0.8 AST (17 - 59 U/L) 27 ALT (21 - 72 U/L) 30 Alkaline Phosphatase (< 127 U/L) 66 Troponin I (<0.11 ng/ml) 0.01 Total Protein (6.3 - 8.2 g/dL) 5.9 L Albumin (3.5 - 5.0 g/dL) 3.5 Globulin (1.9 - 4.2 gm/dL) 2.4 Albumin/Globulin Ratio (1.1 - 2.2 %) 1.5 Hematology CBC w Diff NO MAN DIFF REQ WBC (4.8 - 10.8 /CUMM) 12.6 H RBC (4.70 - 6.10 /CUMM) 4.26 L Hgb (14.0 - 18.0 G/DL) 13.0 L Hct (42 - 52 %) 39.6 L MCV (80.0 - 94.0 FL) 93.1 MCH (27.0 - 31.0 PG) 30.5 MCHC (33.0 - 37.0 G/DL) 32.8 L RDW (11.5 - 14.5 %) 15.9 H Plt Count (130 - 400 /CUMM) 173 MPV (7.4 - 10.4 FL) 8.1 Gran % (42.2 - 75.2 %) 85.1 H Lymphocytes % (20.5 - 51.1 %) 8.7 L Monocytes % (1.7 - 9.3 %) 5.8 Eosinophils % (0 - 5 %) 0.4 Basophils % (0.0 - 2.0 %) 0 Absolute Granulocytes (1.4 - 6.5 /CUMM) 10.8 H Absolute Lymphocytes (1.2 - 3.4 /CUMM) 1.1 L Absolute Monocytes (0.10 - 0.60 /CUMM) 0.7 H Absolute Eosinophils (0.0 - 0.7 /CUMM) 0.1 Absolute Basophils (0.0 - 0.2 /CUMM) 0 Miscellaneous Phlebotomy Draw Site RIGHT RADIAL CT head: IMPRESSION: No acute intracranial abnormality. Mild small vessel ischemic changes and mild diffuse brain parenchymal volume loss CXR: IMPRESSION: No acute pulmonary findings. EKG>> could not be found. A/P; 72 y/o M with pmh sig for ch resp failure, COPD, obstructive sleep apnea, with ongoing tobacco use disorder, 02 DEPENDANT, AFIB, ch diastolic CHF, hypertension, Insulin dependent diabetes, admitted withAcute on chronic respiratory failure acute to be exacerbation and possibly acute bronchitis. Chest x-ray negative for any infiltrate. Patient admitted to medicine floor. He will be started on IV steroids, SILVANA nebs and oral is a throat. Please try to obtain sputum culture. Check urine Legionella and strep antigen. Patient should be continued on his inhalers. Pulmonary consult with Dr. Blake. Should use CPAP at night. Patient to be continued on his cardiac medications as well as Eliquis. Please follow-up on EKG. Expect steroid-induced hyperglycemia. He should be continued on his Levemir and medium scale sliding scale insulin with Accu-Cheks. Continue diuretics and digoxin if patient takes at home. Check dig level. DVT Px: Eliquis. DNR/DNI.
[2017-10-24 18:31] VITALS: BP 110/60
[2017-10-24 20:45] VITALS: BP 168/92
[2017-10-24 22:33] VITALS: BP 140/72
[2017-10-25 06:20] VITALS: BP 124/58
--- NOTE | 2017-10-25 07:16 | PN- Housestaff ---
Molly Church 10/25/17 0715: Subjective Follow-up For: COPD Exacerbation Subjective: Pt seen and examined at bedside this morning. He is alert but confused and not oriented to place, person or time. On 3.5 L NC as his baseline is 3L at home as per . Called his to confirm his code status and she claims it is DNR/ DNI which he had stated to me and the admitting team at time of admission from the emergency department last night. He was receiving treatment during my admission. Afebrile with normal vital signs. Review of Systems Constitutional: Denies: see HPI. Objective Last 24 Hrs of Vital Signs/I&O Vital Signs Date Time Temp Pulse Resp B/P B/P Pulse O2 O2 Flow FiO2 Mean Ox Delivery Rate 10/25 926 75 124/60 10/25 0927 75 124/60 10/25 0853 92 Nasal 3.0L Cannula 10/25 0800 Nasal 3.0L Cannula 10/25 0620 97.7 75 22 124/58 93 10/25 0540 89 10/25 0019 91 CPAP 5.0L 10/25 0000 CPAP 10/24 2259 84 94 10/24 2233 140/72 10/24 2124 Nasal 3.0L Cannula 10/24 2123 92 Nasal 3.0L Cannula 10/24 2049 74 168/92 10/24 2048 74 168/92 10/24 2045 97.7 74 18 168/92 93 Nasal 3.0L Cannula 10/24 1831 98.5 68 21 110/60 90 Nasal 3.0L Cannula 10/24 1821 Nasal 3.0L Cannula 10/24 1627 98.5 70 18 106/57 95 Nasal 3.0L Cannula 10/24 1615 97.0 79 18 111/55 95 Aerosol 10L Mask 10/24 1605 93 Nasal 3.0L Cannula 10/24 1407 94 Nasal 3.0L Cannula 10/24 1406 98.4 69 22 128/83 94 Nasal 3.0L Cannula Intake & Output 10/25 1600 10/25 0800 10/25 0000 Intake Total 700 375 Output Total 550 Balance 700 -175 Intake, IV 600 275 Intake, Oral 100 100 Number 1 Bowel Movements Output, Urine 550 Patient 237 lb Weight Weight Reported by Patient Measurement Method Physical Exam General Appearance: Alert, Mild Distress, not oriented Skin: No Rashes, No Breakdown HEENT: Mucous Membr. moist/pink, right eye closed; Neck: Supple Cardiovascular: Normal S1, Normal S2 Lungs: decreassed breath sounds with minimal wheezing Abdomen: Normal Bowel Sounds, Soft, No Tenderness Extremities: Trace pedal edema Vascular: Normal Pulses Current Medications: Current Medications Sig/Lakisha Start time Last Medication Dose Route Stop Time Status Admin Acetaminophen 650 MG Q6P PRN 10/24 1645 AC PO Acetaminophen 1,000 MG Q6P PRN 10/24 1645 AC IV Albuterol Sulfate 3 ML EVERY 4 HRS/AWAKE 10/25 0800 AC 10/25 INH 1203 Albuterol Sulfate 3 ML ONCE ONE 10/24 1545 DC 10/24 INH 10/24 1546 1552 Allopurinol 300 MG DAILY 10/25 09 AC 10/25 PO 926 Apixaban 5 MG BID 10/24 2100 AC 10/25 PO 927 Atorvastatin Calcium 10 MG 1700 10/25 1700 AC PO Azithromycin 500 MG 2100 10/24 2100 AC 10/24 Sodium Chloride 250 ML IV 2103 Azithromycin 500 MG 1800 10/24 1800 DC Sodium Chloride 250 ML IV Digoxin 0.125 MG DAILY 10/25 0900 AC 10/25 PO 09 Diltiazem HCl 120 MG DAILY 10/25 0900 AC 10/25 PO 0928 Docusate Sodium 100 MG QPM 10/24 2100 AC 10/24 PO 2049 Duloxetine HCl 60 MG DAILY 10/25 0900 AC 10/25 PO 0928 Folic Acid 1 MG BID 10/24 2100 AC 10/25 PO 0928 Furosemide 60 MG DAILY 10/25 0900 AC 10/25 PO 09 Influenza Virus 0.5 ML ONCE ONE 10/24 1914 DC 10/24 Vaccine IM 10/24 Insulin Aspart 0 TIDAC 10/25 0800 AC 10/25 MI 1231 Insulin Aspart 4 UNITS ONCE ONE 10/25 0615 DC 10/25 MI 10/25 0616 0609 Insulin Aspart 4 UNITS ONCE ONE 10/25 0600 CAN MI 10/25 0601 Insulin Aspart 4 UNITS ONCE ONE 10/25 0445 DC 10/25 MI 10/25 0446 0453 Insulin Aspart 0 AT BEDTIME 10/25 0245 AC 10/25 MI 0242 Insulin Aspart 0 .STK-MED ONE 10/25 0243 [facility] Insulin Aspart 0 .STK-MED ONE 10/24 1905 [facility] Insulin Aspart 4 UNITS ONCE ONE 10/24 1900 DC 10/24 SC 10/24 190 190 Ipratropium [place] 2.5 ML ONCE ONE 10/24 1545 DC 10/24 INH 10/24 1546 1552 Methylprednisolone 40 MG Q12 10/25 2099 AC IV Methylprednisolone 40 MG Q8 10/25 0600 DC 10/25 IV 0559 Methylprednisolone 0 .STK-MED ONE 10/24 1612 DC .ROUTE Methylprednisolone 125 MG ONCE ONE 10/24 1545 DC 10/24 IV 10/24 1546 1615 Metoprolol Tartrate 100 MG BID 10/24 2099 AC 10/25 PO 926 Nystatin 5 ML 4 TIMES/DAY 10/24 1700 AC 10/25 PO 123 Omeprazole 20 MG BID 10/24 2099 AC 10/25 PO 926 Tamsulosin HCl 0.4 MG QPM 10/24 2099 AC 10/24 PO 2048 Last 24 Hrs of Lab/Kiel Results Last 24 Hrs of Labs/Mics: Laboratory Tests 10/25/17 0650: Anion Gap 10, Estimated GFR > 60, BUN/Creatinine Ratio 35.7 H, CBC w Diff NO MAN DIFF REQ, RBC 4.16 L, MCV 92.2, MCH 30.3, MCHC 32.9 L, RDW 16.6 H, MPV 8.7, Gran % 91.4 H, Lymphocytes % 6.9 L, Monocytes % 1.7, Eosinophils % 0, Basophils % 0, Absolute Granulocytes 7.8 H, Absolute Lymphocytes 0.6 L, Absolute Monocytes 0.1, Absolute Eosinophils 0, Absolute Basophils 0 10/25/17 0040: Urinalysis LIGHT H, Urine Color YEL, Urine Clarity CLEAR, Urine pH 6.0, Ur Specific [place] 1.020, Urine Protein NEG, Urine Ketones TRACE H, Urine Nitrite NEG, Urine Bilirubin NEG, Urine Urobilinogen 0.2, Ur Leukocyte Esterase NEG, Ur Microscopic SEDIMENT EXAMINED, Urine RBC 3-5, Ur Epithelial Cells RARE, Urine Bacteria RARE H, Urine Hemoglobin SMALL H, Urine Glucose >=1000 H 10/24/17 1600: pH 7.42, pCO2 51 H, pO2 77 L, HCO3 33 H, ABG O2 Sat (Measured) 93.0 L, P-50 (Temp Corrected) N, Carboxyhemoglobin 1.7, O2 Concentration % 3L, Temperature 98.4, O2 Delivery Method NC, Phlebotomy Draw Site RIGHT RADIAL 10/24/17 1424: Lactic Acid 1.1 10/24/17 1424: Anion Gap 8, Estimated GFR > 60, BUN/Creatinine Ratio 28.3 H, Glucose 193 H, Hemoglobin A1c 7.6 H, Calcium 9.0, Total Bilirubin 0.8, AST 27, ALT 30, Alkaline Phosphatase 66, Troponin I 0.01, Total Protein 5.9 L, Albumin 3.5, Globulin 2.4, Albumin/Globulin Ratio 1.5, CBC w Diff NO MAN DIFF REQ, RBC 4.26 L, MCV 93.1, MCH 30.5, MCHC 32.8 L, RDW 15.9 H, MPV 8.1, Gran % 85.1 H, Lymphocytes % 8.7 L, Monocytes % 5.8, Eosinophils % 0.4, Basophils % 0, Absolute Granulocytes 10.8 H, Absolute Lymphocytes 1.1 L, Absolute Monocytes 0.7 H, Absolute Eosinophils 0.1, Absolute Basophils 0 Microbiology 10/24 1648 URINE ROUT: Legionella Antigen - COLB 10/24 1648 URINE ROUT: Streptococcus pneumoniae Antigen (M - COLB 10/24 1648 LOWER RESP: Respiratory Culture - COLB 10/24 1648 LOWER RESP: Gram Stain - COLB Assessment/Plan Assessment: 72 y/o M with pmh sig for ch resp failure, COPD, obstructive sleep apnea, with ongoing tobacco use disorder, 02 DEPENDANT, AFIB, ch diastolic CHF, hypertension , Insulin dependent diabetes, was brought in because he was found to be confused and short of breath by family. Required high flow in EMS. Head CT: No acute intracranial abnormality. Mild small vessel ischemic changes and mild diffuse brain parenchymal volume loss. CXR: No acute pulmonary findings 10/25: IV Solumedrol to q[address] Blake. Seen by PT with activity on assist of 1, needs rolling walker. Continued on 3L NC. *Spoke with of code status to be DNR/DNI as patient wanted as well. came in on 10/25/17 with discussion with me on her concern about patients mental status and she does not feel fit to have the patient come back home. She is in stress about the situation and does not want to speak to case management today but will be willing to after the weekend. I have notified case management. PROBLEM LIST: 1. Chronic Hypoxemic and Hypercarbic Respiratory Failure 2. COPD 3. Atrial Fibrillation on Eliquis 4. Diabetes Mellitus - Insulin Dependent 5. Rheumatoid Arthritis/Gout Chronic Hypoxemic/Hypercarbic Respiratory Failure/COPD * Appreciate Dr. Blake seeing patient and recommendations * Will reduce solumedrol to 40mg IV q12 * Nocturnal NIV - outpatient sleep study * TRC/Nebs * Follow legionella/strep antigens, respiratory culture/gram stain Atrial Fibrillation * Continue Eliquis, Digoxin, Cardizem, Lopressor CHF with Diastolic Dysfunction Last EF was 55% * Continue Lasix 60mg PO Daily Diabetes * Insulin Sliding Scale + accu-checks * Lipitor 10mg daily Rheumatoid Arthritis/Gout * Received his weekly methotrexate dose this week * Allopurinol continued * Home prednisone 10mg held considering on IV Solumedrol Q12 IV will continue on discharge accordingly * Continue Cymbalta 60mg PO Daily Code Status: DNR/DNI - Spoke with on phone and as per patient DVT PPx: Eliquis Diet: CC3 Problem List: 1. COPD exacerbation 2. CHF (congestive heart failure) Pain Ratin Pain Location: denies pain Pain Goal: Remain pain free Pain Plan: denies pain this morning Tomorrow's Labs & Rationales: cbc bep Curtis Lozoya MD 10/25/17 1246: Attending MD Review Statement Attending Statement Attending MD Statement: examined this patient, discuss w/resident/PA/LABORER HOISTING, agreed w/resident/PA/LABORER HOISTING, reviewed EMR data (avail), discussed with nursing, discussed with case mgmt, amended to note Attending Assessment/Plan: The patient was seen and discussed with house staff, nursing, and case management. Appreciate pulmonary input. His mental status fluctuates. He is frustrated as he is amnestic of events that lead to admission- advised him related to hypoxia, etc. Will reduce solumedrol as per psych. PT evaluation being done. ? STR.
[2017-10-25 08:21] LABS: ABSOLUTE BASOPHIL COUNT 0 /CUMM (0.0-0.2); ABSOLUTE EOSINOPHIL COUNT 0 /CUMM (0.0-0.7); ABSOLUTE GRANULOCYTE CT 7.8 /CUMM (1.4-6.5); ABSOLUTE LYMPH COUNT 0.6 /CUMM (1.2-3.4); ABSOLUTE MONOCYTE COUNT 0.1 /CUMM (0.10-0.60); BASOPHIL % 0 % (0.0-2.0); EOSINOPHIL % 0 % (0-5); HEMATOCRIT 38.3 % (42-52); MEAN CORPUSCULAR HGB 30.3 PG (27.0-31.0); MEAN CORPUSCULAR HGB CONC 32.9 G/DL (33.0-37.0); MEAN CORPUSCULAR VOLUME 92.2 FL (80.0-94.0); MEAN PLATELET VOLUME 8.7 FL (7.4-10.4); PLATELET COUNT 152 /CUMM (130-400); RBC DISTRIBUTION WIDTH 16.6 % (11.5-14.5); RED BLOOD CELL CT 4.16 /CUMM (4.70-6.10); WHITE BLOOD CELL COUNT 8.6 /CUMM (4.8-10.8)
--- NOTE | 2017-10-25 08:39 | Cons- Pulmonary ---
General Information and HPI Consulting Request Date of Consult: 10/25/17 Requested By: Dr. Perry Reason for Consult: COPD exacerbation Source of Information: patient Exam Limitations: no limitations History of Present Illness: 72 year old man. Consultation for exacerbation of COPD. Recent admission to for a.fib RVR and hypoxemic respiratory failure. Has significant COPD, RA, back pain, tobacco dependence. On prednisone/methotrexate/enbrel preiodically for RA. Symbicort, spiriva, 3.5L o2 for COPD. Spent time at rehab and has recently been discharged home. He was brought in after a period of desaturation into the 70's and altered mental status. The patient has not used his dream station CPAP upon review of his machine that is present. CXR without acute findings. No evidence of CHF exacerbation. Labs reviewed, wbc resolved. Patient feels at respiratory baseline. Allergies/Medications Allergies: Coded Allergies: Sulfa (Sulfonamide Antibiotics) (Intermediate, RASH/HIVES 06/06/17) Home Med List: Albuterol Sulfate 2.5 MG/3 ML (0.083 %) VIAL.NEB 1 Vial INH/TAPAN 5 TIMES A DAY COPD (Reported) Alendronate Sodium 70 MG TABLET 1 TAB PO QTHURS BONES (Reported) in the morning, at least 30 minutes before the first food, beverage, or medication of the day Allopurinol 300 MG TABLET 1 TAB PO DAILY GOUT (Reported) Apixaban (Eliquis) 5 MG TABLET 1 TAB PO BID Atrial Fibrilliation Budesonide/Formoterol Fumarate (Symbicort 160-4.5 Mcg Inhaler) 160 MCG-4.5 MCG/ ACTUATION HFA.AER.AD 2 PUF INH BID COPD (Reported) Digoxin 125 MCG TABLET 1 TAB PO DAILY HEART Diltiazem HCl (Cardizem Cd) 120 MG CAP.ER.24H 120 MG PO DAILY HEART Docusate Sodium (Stool Softener) 100 MG CAPSULE 1 CAP PO QPM STOOL SOFTENER ( Reported) Duloxetine HCl (Cymbalta) 60 MG CAPSULE.DR 1 CAP PO DAILY MENTAL HEALTH ( Reported) Folic Acid 1 MG TABLET 1 TAB PO BID SUPPLEMENT (Reported) Furosemide 20 MG TABLET 3 TAB PO DAILY WATER RETENTION (Reported) Insulin NPL/Insulin Lispro (Humalog Mix 75-25 Kwikpen) 100 UNIT/ML (75-25) INSULN.PEN 35 UNITS SC DAILY DIABETES (Reported) Insulin NPL/Insulin Lispro (Humalog Mix 75-25 Kwikpen) 100 UNIT/ML (75-25) INSULN.PEN 30 UNITS SC QPM DIABETES (Reported) Lovastatin 40 MG TABLET 1 TAB PO QPM CHOLESTEROL (Reported) with food Methotrexate 2.5 MG TABLET 6 TAB PO QTHURS RA (Reported) Metoprolol Tartrate (Lopressor) 100 MG TABLET 1 TAB PO BID heart (Reported) Omeprazole 20 MG CAPSULE.DR 1 CAP PO BID GI (Reported) Oxycodone HCl/Acetaminophen (Oxycodone-Acetaminophen 10-325) 10 MG-325 MG TABLET 1 TAB PO 4XDP PRN PAIN (Reported) Prednisone 10 MG TABLET 10 MG PO DAILY Rheumatoid Arthritis Tamsulosin HCl 0.4 MG CAP.ER.24H 1 CAP PO QPM BPH (Reported) Current Medications: Current Medications Sig/Lakisha Start time Last Medication Dose Route Stop Time Status Admin Acetaminophen 650 MG Q6P PRN 10/24 1645 AC PO Acetaminophen 1,000 MG Q6P PRN 10/24 1645 AC IV Albuterol Sulfate 3 ML EVERY 4 HRS/AWAKE 10/25 0800 AC 10/24 INH 2115 Albuterol Sulfate 3 ML ONCE ONE 10/24 1545 DC 10/24 INH 10/24 1546 1552 Allopurinol 300 MG DAILY 10/25 0900 AC PO Apixaban 5 MG BID 10/24 2100 AC 10/24 PO 204 Atorvastatin Calcium 10 MG 1700 10/25 1700 AC PO Azithromycin 500 MG 2100 10/24 2100 AC 10/24 Sodium Chloride 250 ML IV 2103 Azithromycin 500 MG 1800 10/24 1800 DC Sodium Chloride 250 ML IV Digoxin 0.125 MG DAILY 10/25 0900 AC PO Diltiazem HCl 120 MG DAILY 10/25 0900 AC PO Docusate Sodium 100 MG QPM 10/24 2100 AC 10/24 PO 204 Duloxetine HCl 60 MG DAILY 10/25 0900 AC PO Folic Acid 1 MG BID 10/24 2100 AC 10/24 PO 204 Furosemide 60 MG DAILY 10/25 09 AC PO Influenza Virus 0.5 ML ONCE ONE 10/24 1914 DC 10/24 Vaccine IM 10/24 Insulin Aspart 0 TIDAC 10/25 0800 AC SC Insulin Aspart 4 UNITS ONCE ONE 10/25 0515 DC 10/25 SC 10/25 0616 0609 Insulin Aspart 4 UNITS ONCE ONE 10/25 0600 CAN SC 10/25 0601 Insulin Aspart 4 UNITS ONCE ONE 10/25 0445 DC 10/25 SC 10/25 0446 0453 Insulin Aspart 0 AT BEDTIME 10/25 0245 AC 10/25 SC 0242 Insulin Aspart 0 .STK-MED ONE 10/25 0243 DC SC Insulin Aspart 0 .STK-MED ONE 10/24 1905 DC SC Insulin Aspart 4 UNITS ONCE ONE 10/24 1900 DC 10/24 SC 10/24 1901 1903 Ipratropium [place] 2.5 ML ONCE ONE 10/24 1545 DC 10/24 INH 10/24 1546 1552 Methylprednisolone 40 MG Q8 10/25 0600 AC 10/25 IV 0559 Methylprednisolone 0 .STK-MED ONE 10/24 1612 DC .ROUTE Methylprednisolone 125 MG ONCE ONE 10/24 1545 DC 10/24 IV 10/24 1546 1615 Metoprolol Tartrate 100 MG BID 10/24 2100 AC 10/24 PO 2048 Nystatin 5 ML 4 TIMES/DAY 10/24 1700 AC 10/24 PO 2049 Omeprazole 20 MG BID 10/24 2100 AC 10/24 PO 2048 Tamsulosin HCl 0.4 MG QPM 10/24 2100 AC 10/24 PO 204 Review of Systems Comments 18 pt ROS reviewed pertinent positives and negatives in the HPI, otherwise negative Past History Travel History [place]ed [place] past 21 day No Medical History Blood Transfusion Hx: No Neurological: NONE EENT: NONE Cardiovascular: AFIB, CHF, hypertension Respiratory: COPD, obstructive sleep apnea, with ongoing tobacco use disorder 02 DEPENDANT Gastrointestinal: NONE Hepatic: NONE Renal: benign prost hyperplasia Musculoskeletal: rheumatoid arthritis Psychiatric: NONE Endocrine: INSULIN DEPENDENT DIABETIC TYPE II Blood Disorders: NONE Cancer(s): 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 Refer elsewhere in this and other documents for additional details. According to the patient's report he was asymptomatic and functionally unrestricted by his back prior to this injury. He did have functional limitation and restriction because of his other medical conditions. Refer to other inpatient and outpatient medical records for details regarding pre-injury functional status and deficits. Surgical History Surgical History: none (jjjg) Family History Relations & Conditions If Any: MOTHER FHx: cancer Psychosocial History Who Do You Live With? spouse Services at Home: Nursing, Oxygen (2.5 liters) Smoking Status: Former Smoker Functional Ability Ambulation: independent, Ambulatory distance was limited by pulmonary condition and not by any spinal symptoms prior to this injury. Pre-injury functional ability is detailed in "Other Medical Hx" section. Exam & Diagnostic Data Last 24 Hrs of Vital Signs/I&O Vital Signs Date Time Temp Pulse Resp B/P B/P Pulse O2 O2 Flow FiO2 Mean Ox Delivery Rate 10/25 0620 97.7 75 22 124/58 93 10/25 0540 89 10/25 0019 91 CPAP 5.0L 10/25 0000 CPAP 10/24 2259 84 94 10/24 2233 140/72 10/24 2124 Nasal 3.0L Cannula 10/24 2122 92 Nasal 3.0L Cannula 10/24 2049 74 168/92 10/24 2048 74 168/92 10/24 2045 97.7 74 18 168/92 93 Nasal 3.0L Cannula 10/24 1831 98.5 68 21 110/60 90 Nasal 3.0L Cannula 10/24 1821 Nasal 3.0L Cannula 10/24 1627 98.5 70 18 106/57 95 Nasal 3.0L Cannula 10/24 1615 97.0 79 18 111/55 95 Aerosol 10L Mask 10/24 1605 93 Nasal 3.0L Cannula 10/24 1407 94 Nasal 3.0L Cannula 10/24 1406 98.4 69 22 128/83 94 Nasal 3.0L Cannula Intake & Output 10/25 1600 10/25 0800 10/25 0000 Intake Total 700 375 Output Total 550 Balance 700 -175 Intake, IV 600 275 Intake, Oral 100 100 Output, Urine 550 Patient 237 lb Weight Weight Reported by Patient Measurement Method Physical Exam Other Physical Findings: gen-awake and alert, some confusion heent-nasal cannula cvs-s1,s2, tachycardic lungs-rare rhonchi, diminished bases abd-soft,bs+ ext-trace edema Last 48 Hrs of Labs/Kiel: Laboratory Tests 10/25/17 0650: Sodium Pending, Potassium Pending, Chloride Pending, Carbon Dioxide Pending, Anion Gap Pending, BUN Pending, Creatinine Pending, BUN/Creatinine Ratio Pending , CBC w Diff Pending, WBC Pending, RBC Pending, Hgb Pending, Hct Pending, MCV Pending, MCH Pending, MCHC Pending, RDW Pending, Plt Count Pending, MPV Pending, Gran % Pending, Lymphocytes % Pending, Monocytes % Pending, Eosinophils % Pending, Basophils % Pending, Absolute Granulocytes Pending, Absolute Lymphocytes Pending, Absolute Monocytes Pending, Absolute Eosinophils Pending, Absolute Basophils Pending 10/25/17 0040: Urinalysis LIGHT H, Urine Color YEL, Urine Clarity CLEAR, Urine pH 6.0, Ur Specific [place] 1.020, Urine Protein NEG, Urine Ketones TRACE H, Urine Nitrite NEG, Urine Bilirubin NEG, Urine Urobilinogen 0.2, Ur Leukocyte Esterase NEG, Ur Microscopic SEDIMENT EXAMINED, Urine RBC 3-5, Ur Epithelial Cells RARE, Urine Bacteria RARE H, Urine Hemoglobin SMALL H, Urine Glucose >=1000 H 10/24/17 1600: pH 7.42, pCO2 51 H, pO2 77 L, HCO3 33 H, ABG O2 Sat (Measured) 93.0 L, P-50 (Temp Corrected) N, Carboxyhemoglobin 1.7, O2 Concentration % 3L, Temperature 98.4, O2 Delivery Method NC, Phlebotomy Draw Site RIGHT RADIAL 10/24/17 1424: Lactic Acid 1.1 10/24/17 1424: Anion Gap 8, Estimated GFR > 60, BUN/Creatinine Ratio 28.3 H, Glucose 193 H, Hemoglobin A1c 7.6 H, Calcium 9.0, Total Bilirubin 0.8, AST 27, ALT 30, Alkaline Phosphatase 66, Troponin I 0.01, Total Protein 5.9 L, Albumin 3.5, Globulin 2.4, Albumin/Globulin Ratio 1.5, CBC w Diff NO MAN DIFF REQ, RBC 4.26 L, MCV 93.1, MCH 30.5, MCHC 32.8 L, RDW 15.9 H, MPV 8.1, Gran % 85.1 H, Lymphocytes % 8.7 L, Monocytes % 5.8, Eosinophils % 0.4, Basophils % 0, Absolute Granulocytes 10.8 H, Absolute Lymphocytes 1.1 L, Absolute Monocytes 0.7 H, Absolute Eosinophils 0.1, Absolute Basophils 0 Assessment/Plan Impression/Plan: Impression 72 year old man * chronic hypoxemic and hypercarbic respiratory failure * COPD with perhaps a mild exacerbation * a.fib/flutter - on Eliquis * DM - Insulin dependent * RA - chronic pain Plan -reduce solumedrol to 40mg iv q12h with hope of a quick taper back to 10mg at baseline for RA -nocturnal NIV, will need sleep study re-evaluation on an outpatient basis -maintain spo2 >92% -TRC/Nebs -at baseline maintained on 10mg prednisone (arthritis) -currently on Eliquis -concern for amenstic events and probable dementia -STR would be a strong recommendations if family in agreement Code status - DNR/DNI DVT prophylaxis at all times (On Eliquis) Previous patient request: Of note - if patient requires any urethral catheterization this is to be done only with urology per patient request Consult Acknowledgment - Thank you for your consult request.
[2017-10-25 09:38] LABS: GRANULOCYTE % 91.4 % (42.2-75.2)
[2017-10-25 14:50] VITALS: BP 135/70
[2017-10-25 22:27] VITALS: BP 142/65
[2017-10-26 06:31] VITALS: BP 140/60
[2017-10-26 08:42] LABS: ABSOLUTE BASOPHIL COUNT 0 /CUMM (0.0-0.2); ABSOLUTE EOSINOPHIL COUNT 0 /CUMM (0.0-0.7); ABSOLUTE GRANULOCYTE CT 12.1 /CUMM (1.4-6.5); ABSOLUTE LYMPH COUNT 0.5 /CUMM (1.2-3.4); ABSOLUTE MONOCYTE COUNT 0.3 /CUMM (0.10-0.60); BASOPHIL % 0 % (0.0-2.0); EOSINOPHIL % 0.1 % (0-5); GRANULOCYTE % 93.1 % (42.2-75.2); MEAN CORPUSCULAR HGB 30.7 PG (27.0-31.0); MEAN CORPUSCULAR VOLUME 92.9 FL (80.0-94.0); PLATELET COUNT 147 /CUMM (130-400); RED BLOOD CELL CT 3.98 /CUMM (4.70-6.10)
--- NOTE | 2017-10-26 12:07 | PN- Housestaff ---
[address] 10/26/17 1202: Subjective Follow-up For: copd exacerbation Subjective: Patient was seen and examined this morning he said that he is doing better and wants to go home. He was counseled that he needs to stay in the hospital today. He said that he wanted to go home and his taxi was waiting outside. The nurse told that his blood sugar levels are running very high and on calling home to verify his insulin levels it was found out that the patient takes 35 units at breakfast and 30 units before dinner of Humalog Review of Systems Constitutional: Reports: see HPI. Objective Last 24 Hrs of Vital Signs/I&O Vital Signs Date Time Temp Pulse Resp B/P B/P Pulse O2 O2 Flow FiO2 Mean Ox Delivery Rate 10/26 0833 98.2 80 20 140/60 10/26 0832 98.2 80 20 140/60 10/26 0823 96 Nasal 3.0L Cannula 10/26 0822 95 10/26 0631 98.2 80 20 140/60 97 Nasal 3.0L Cannula 10/26 0000 98 CPAP 3.0L 10/25 2245 88 98 10/25 2227 96.8 88 20 142/65 96 Nasal 3.0L Cannula 10/25 2026 96 Nasal 3.0L Cannula 10/25 2001 142/65 10/25 2001 14265 10/25 1637 97 Nasal 3.0L Cannula 10/25 1600 Nasal 2.5L Cannula 10/25 1450 97.9 87 21 135/70 92 Room Air Intake & Output 10/26 1600 10/26 0800 10/26 0000 Intake Total 0 1105 Output Total 0 Balance 0 1105 Intake, IV 0 225 Intake, Oral 0 880 Number 0 Bowel Movements Output, Urine 0 Physical Exam General Appearance: Alert, Oriented X3, Cooperative, No Acute Distress Cardiovascular: Regular Rate, No Murmurs Lungs: rhonchi on the right side Abdomen: Normal Bowel Sounds, Soft, No Tenderness, No Hepatospenomegaly, No Masses Neurological: Normal Speech, Strength at 5/5 X4 Ext, Normal Tone, Sensation Intact Extremities: No Clubbing, No Cyanosis, No Edema, Normal Pulses, No Tenderness/ Swelling Assessment/Plan Assessment: 72 y/o M with pmh sig for ch resp failure, COPD, obstructive sleep apnea, with ongoing tobacco use disorder, 02 DEPENDANT, AFIB, ch diastolic CHF, hypertension , Insulin dependent diabetes, was brought in because he was found to be confused and short of breath by family. Required high flow in EMS. Head CT: No acute intracranial abnormality. Mild small vessel ischemic changes and mild diffuse brain parenchymal volume loss. CXR: No acute pulmonary findings 10/25: IV Solumedrol to q[address] Blake. Seen by PT with activity on assist of 1, needs rolling walker. Continued on 3L NC. *Spoke with of code status to be DNR/DNI as patient wanted as well. came in on 10/25/17 with discussion with me on her concern about patients mental status and she does not feel fit to have the patient come back home. She is in stress about the situation and does not want to speak to case management today but will be willing to after the weekend. I have notified case management. PROBLEM LIST: 1. Chronic Hypoxemic and Hypercarbic Respiratory Failure 2. COPD 3. Atrial Fibrillation on Eliquis 4. Diabetes Mellitus - Insulin Dependent 5. Rheumatoid Arthritis/Gout Chronic Hypoxemic/Hypercarbic Respiratory Failure/COPD * Reduce Solu-Medrol to 40 mg IV every 12 hours and then plan taper on 10 mg at baseline for rheumatoid arthritis * Nocturnal NIV - outpatient sleep study * TRC/Nebs Atrial Fibrillation * Continue Eliquis, Digoxin, Cardizem, Lopressor CHF with Diastolic Dysfunction Last EF was 55% * Continue Lasix 60mg PO Daily Diabetes * Insulin Sliding Scale + accu-checks said that he takes 35 units Humalog at breakfast and 30 units for dinner * Lipitor 10mg daily Rheumatoid Arthritis/Gout * Received his weekly methotrexate dose this week * Allopurinol continued * Home prednisone 10mg held considering on IV Solumedrol Q12 IV will continue on discharge accordingly * Continue Cymbalta 60mg PO Daily Code Status: DNR/DNI - Spoke with on phone and as per patient DVT PPx: Eliquis Diet: CC3 Problem List: 1. COPD with acute exacerbation Pain Ratin Pain Location: none Pain Goal: Remain pain free (none) Pain Plan: none Tomorrow's Labs & Rationales: none Pipo Amor 10/26/17 1209: Attending MD Review Statement Attending Statement Attending MD Statement: examined this patient, discuss w/resident/PA/FRUIT PACKER, agreed w/resident/PA/FRUIT PACKER, discussed with family, reviewed EMR data (avail), discussed with nursing, discussed with case mgmt, reviewed images, amended to note Attending Assessment/Plan: Agree with above. Continue plan of care as per pulmonary. Taper steroids as per pulmonary.
--- NOTE | 2017-10-26 12:13 | PN- Pulmonary ---
Subjective HPI/Critical Care Issues: pt seen and examined no n/v/d/c, no cp returning to respiratory baseline no fevers, no chills no cedeno, some confusion/forgetfullness Objective Current Medications: Current Medications Sig/Lakisha Start time Last Medication Dose Route Stop Time Status Admin Acetaminophen 650 MG Q6P PRN 10/24 1645 AC PO Acetaminophen 1,000 MG Q6P PRN 10/24 1645 AC IV Albuterol Sulfate 3 ML EVERY 4 HRS/AWAKE 10/25 08 AC 10/26 INH 1142 Allopurinol 300 MG DAILY 10/25 09 AC 10/26 PO 0834 Apixaban 5 MG BID 10/24 2099 AC 10/26 PO 0832 Atorvastatin Calcium 10 MG 1700 10/25 1700 AC 10/25 PO 165 Azithromycin 500 MG 10/24 AC 10/25 Sodium Chloride 250 ML IV 1958 Digoxin 0.125 MG DAILY 10/25 09 AC 10/26 PO 0832 Diltiazem HCl 120 MG DAILY 10/25 09 AC 10/26 PO 0831 Docusate Sodium 100 MG QPM 10/24 2100 AC 10/25 PO 2000 Duloxetine HCl 60 MG DAILY 10/25 09 AC 10/26 PO 0832 Folic Acid 1 MG BID 10/24 2099 AC 10/26 PO 0832 Furosemide 60 MG DAILY 10/25 09 AC 10/26 PO 0833 Insulin Aspart 0 TIDAC 10/25 08 AC 10/26 SC 1155 Insulin Aspart 0 AT BEDTIME 10/25 0245 AC 10/25 SC 2029 Methylprednisolone 40 MG Q12 10/25 2099 AC 10/26 IV 0833 Metoprolol Tartrate 100 MG BID 10/24 2099 AC 10/26 PO 0833 Nystatin 5 ML 4 TIMES/DAY 10/24 1700 AC 10/26 PO 0833 Omeprazole 20 MG BID 10/24 2099 AC 10/26 PO 0833 Tamsulosin HCl 0.4 MG QPM 10/24 2099 AC 10/25 PO 2001 Vital Signs & I&O Last 24 Hrs of Vitals and I&O: Vital Signs Date Time Temp Pulse Resp B/P B/P Pulse O2 O2 Flow FiO2 Mean Ox Delivery Rate 10/26 832 98.2 80 20 140/60 10/26 0832 98.2 80 20 140/60 10/26 0823 96 Nasal 3.0L Cannula 10/26 0822 95 10/26 0631 98.2 80 20 140/60 97 Nasal 3.0L Cannula 10/26 0000 98 CPAP 3.0L 10/25 2245 88 98 10/25 2227 96.8 88 20 142/65 96 Nasal 3.0L Cannula 10/25 2026 96 Nasal 3.0L Cannula 10/25 2001 142/65 10/25 2001 142/65 10/25 1637 97 Nasal 3.0L Cannula 10/25 1600 Nasal 2.5L Cannula 10/25 1450 97.9 87 21 135/70 92 Room Air Intake & Output 10/26 1600 10/26 0800 10/26 0000 Intake Total 0 1105 Output Total 0 Balance 0 1105 Intake, IV 0 225 Intake, Oral 0 880 Number 0 Bowel Movements Output, Urine 0 Exam Other Physical Findings: gen-awake and alert, some confusion heent-nasal cannula cvs-s1,s2, tachycardic lungs-rare rhonchi, diminished bases abd-soft,bs+ ext-trace edema Results Last 24 Hrs of Lab Results: Laboratory Tests 10/26/17 0748: Anion Gap 7, Estimated GFR > 60, BUN/Creatinine Ratio 48.6 H, CBC w Diff MAN DIFF ORDERED, RBC 3.98 L, MCV 92.9, MCH 30.7, MCHC 33.0, RDW 17.0 H, MPV 9.0, Gran % 93.1 H, Lymphocytes % 4.2 L, Monocytes % 2.6, Eosinophils % 0.1, Basophils % 0, Absolute Granulocytes 12.1 H, Absolute Lymphocytes 0.5 L, Absolute Monocytes 0.3, Absolute Eosinophils 0, Absolute Basophils 0, Platelet Estimate VERIFIED BY SMEAR, Polychromasia 1+, Basophilic Stippling 1+, Anisocytosis 1+ Impression/Plan Impression/Plan Impression/Plan: Impression 72 year old man * chronic hypoxemic and hypercarbic respiratory failure * COPD with perhaps a mild exacerbation * a.fib/flutter - on Eliquis * DM - Insulin dependent * RA - chronic pain Plan -dc solumedrol - would give 40mg prednisone x 2 days, 30x2, 20x2, then back to 10mg at baseline for RA -nocturnal NIV, will need sleep study re-evaluation on an outpatient basis -maintain spo2 >92% -TRC/Nebs -at baseline maintained on 10mg prednisone (arthritis) -currently on Eliquis -concern for amenstic events and probable dementia -STR and perhaps [place] [employer] agent care would be a strong recommendations if family in agreement Code status - DNR/DNI DVT prophylaxis at all times (On Eliquis) Previous patient request: Of note - if patient requires any urethral catheterization this is to be done only with urology per patient request
[2017-10-26 21:23] VITALS: BP 120/62
[2017-10-27 06:20] VITALS: BP 122/60
--- NOTE | 2017-10-27 08:53 | PN- Housestaff ---
[address] 10/27/17 0852: Subjective Follow-up For: COPD excerbation RA DM Subjective: Patient was seen and examined this morning. He said he is doing better, no acute overnight events. He has a good appetite and no SOB. Denies wheezing/ sob/ chest pain/ cough. His RBS is still running very high and needs to be corrected Review of Systems Constitutional: Reports: see HPI. Objective Last 24 Hrs of Vital Signs/I&O Vital Signs Date Time Temp Pulse Resp B/P B/P Pulse O2 O2 Flow FiO2 Mean Ox Delivery Rate 10/27 1600 95 Nasal 2.5L Cannula 10/27 1422 97.8 60 20 118/90 95 Nasal 2.0L Cannula 10/27 1138 94 Nasal 3.0L Cannula 10/27 0818 98.1 77 18 122/60 10/27 0818 98.1 77 18 122/60 10/27 0800 95 Nasal 2.5L Cannula 10/27 0620 98.1 77 18 122/60 93 CPAP 10/26 2354 95 Nasal 3.0L Cannula 10/26 2308 96 Nasal 2.5L Cannula 10/26 2132 96 Nasal 3.0L Cannula 10/26 2123 97.9 85 18 120/62 98 10/26 2113 85 126/60 10/26 2113 85 126/60 Intake & Output 10/27 1600 10/27 0800 10/27 0000 Intake Total 360 360 730 Output Total 200 Balance 160 360 730 Intake, IV 250 Intake, Oral 360 360 480 Number 1 Bowel Movements Output, Urine 200 Physical Exam General Appearance: Alert, Oriented X3, Cooperative, No Acute Distress Cardiovascular: Regular Rate, No Murmurs Lungs: Clear to Auscultation Abdomen: Normal Bowel Sounds, Soft, No Tenderness, No Hepatospenomegaly, No Masses Neurological: Normal Speech, Strength at 5/5 X4 Ext, Normal Tone, Sensation Intact Extremities: No Clubbing, No Cyanosis, No Edema, Normal Pulses, No Tenderness/ Swelling Current Medications: Current Medications Sig/Lakisha Start time Last Medication Dose Route Stop Time Status Admin Acetaminophen 650 MG Q6P PRN 10/24 1645 AC PO Acetaminophen 1,000 MG Q6P PRN 10/24 1645 AC IV Albuterol Sulfate 3 ML EVERY 4 HRS/AWAKE 10/25 0800 AC 10/27 INH 1138 Allopurinol 300 MG DAILY 10/25 0900 AC 10/27 PO 0818 Apixaban 5 MG BID 10/24 2100 AC 10/27 PO 0818 Atorvastatin Calcium 10 MG 1700 10/25 1700 AC 10/26 PO 1731 Azithromycin 250 MG DAILY 10/27 1120 AC PO 10/28 0901 Azithromycin 500 MG 2100 10/24 2100 DC 10/26 Sodium Chloride 250 ML IV 211 Digoxin 0.125 MG DAILY 10/25 0900 AC 10/27 PO 0818 Diltiazem HCl 120 MG DAILY 10/25 0900 AC 10/27 PO 0818 Docusate Sodium 100 MG QPM 10/24 2100 AC 10/26 PO 211 Duloxetine HCl 60 MG DAILY 10/25 0900 AC 10/27 PO 0818 Folic Acid 1 MG BID 10/24 2100 AC 10/27 PO 0818 Furosemide 60 MG DAILY 10/25 0900 AC 10/27 PO 0818 Insulin Aspart 0 AT BEDTIME 10/27 2100 [facility] Insulin Aspart 0 TIDAC 10/27 0800 AC 10/27 SC 0817 Insulin Aspart 4 UNITS ONCE ONE 10/26 1315 DC 10/26 MS 10/26 1316 1320 Insulin Aspart 0 TIDAC 10/25 0800 DC 10/26 MS 173 Insulin Aspart 0 AT BEDTIME 10/25 0245 DC 10/25 MS 202 Insulin Detemir 5 UNITS ONCE ONE 10/27 1200 [facility] 10/27 1201 Methylprednisolone 40 MG Q12 10/25 2100 DC 10/26 IV 0833 Metoprolol Tartrate 100 MG BID 10/24 2100 AC 10/27 PO 0818 Nystatin 5 ML 4 TIMES/DAY 10/24 1700 AC 10/27 PO 0817 Omeprazole 20 MG BID 10/24 2100 AC 10/27 PO 0818 Prednisone 20 MG DAILY 10/31 0900 CAN PO 11/01 09 Prednisone 30 MG DAILY 10/29 0900 CAN PO 10/30 09 Prednisone 10 MG DAILY 10/28 0900 AC PO Prednisone 40 MG DAILY 10/27 0900 DC 10/27 PO 10/28 0901 0818 Tamsulosin HCl 0.4 MG QPM 10/24 2100 AC 10/26 PO 211 Last 24 Hrs of Lab/Kiel Results Last 24 Hrs of Labs/Mics: Laboratory Tests 10/27/17 1741: Glucose 496 H Assessment/Plan Assessment: 72 y/o M with pmh sig for ch resp failure, COPD, obstructive sleep apnea, with ongoing tobacco use disorder, 02 DE[employer], AFIB, ch diastolic CHF, hypertension , Insulin dependent diabetes, was brought in because he was found to be confused and short of breath by family. Required high flow in EMS. Head CT: No acute intracranial abnormality. Mild small vessel ischemic changes and mild diffuse brain parenchymal volume loss. CXR: No acute pulmonary findings 10/25: IV Solumedrol to q12 [address] Dr[address] Blake. Seen by PT with activity on assist of 1, needs rolling walker. Continued on 3L NC. *Spoke with of code status to be DNR/DNI as patient wanted as well. came in on 10/25/17 with discussion with me on her concern about patients mental status and she does not feel fit to have the patient come back home. She is in stress about the situation and does not want to speak to case management today but will be willing to after the weekend. I have notified case management. PROBLEM LIST: 1. Chronic Hypoxemic and Hypercarbic Respiratory Failure 2. COPD 3. Atrial Fibrillation on Eliquis 4. Diabetes Mellitus - Insulin Dependent 5. Rheumatoid Arthritis/Gout Chronic Hypoxemic/Hypercarbic Respiratory Failure/COPD * pATIENT IS SWITCHED TO ONLY 10MG OF Prednisone for maintanence of RA as advised by DR. Blake. * Nocturnal NIV - outpatient sleep study * TRC/Nebs Atrial Fibrillation * Continue Eliquis, Digoxin, Cardizem, Lopressor CHF with Diastolic Dysfunction Last EF was 55% * Continue Lasix 60mg PO Daily Diabetes * Endo consult appreciated , Insulin Sliding Scale + accu-checks, will add levemir 4 units for basal insulin, Pt RBS is running high 300- 400 said that he takes 35 units Humalog at breakfast and 30 units for dinner * Lipitor 10mg daily Rheumatoid Arthritis/Gout * Received his weekly methotrexate dose this week * Allopurinol continued * Home prednisone 10mg held considering on IV Solumedrol Q12 IV will continue on discharge accordingly * Continue Cymbalta 60mg PO Daily Code Status: DNR/DNI - Spoke with on phone and as per patient DVT PPx: Eliquis Diet: CC3 Problem List: 1. COPD (chronic obstructive pulmonary disease) Pain Ratin Pain Location: none Pain Goal: Remain pain free Pain Plan: none Tomorrow's Labs & Rationales: none Pipo Amor 10/27/17 1235: Attending MD Review Statement Attending Statement Attending MD Statement: examined this patient, discuss w/resident/PA/HEMODIALYSIS RN, agreed w/resident/PA/HEMODIALYSIS RN, discussed with family, reviewed EMR data (avail), discussed with nursing, discussed with case mgmt, reviewed images, amended to note Attending Assessment/Plan: Agree with above. Denies any new complaints. He is aaox 3 oriented. Pateint is hyperglycemic this morning from steroid usage. Patient on sliding scale insulin and add low dose basal insulin for now. Monitor frequent accuchecks and titrate insulin. Taper steroids as per pulmonary for mild COPD exacerbation. PT recommendations for STR. gi/dvt prophyalxis
--- NOTE | 2017-10-27 13:08 | PN- Pulmonary ---
Subjective HPI/Critical Care Issues: pt seen and examined no n/v/d/c, no cp returning to respiratory baseline no fevers, no chills no cedeno, some confusion/forgetfullness Objective Current Medications: Current Medications Sig/Lakisha Start time Last Medication Dose Route Stop Time Status Admin Acetaminophen 650 MG Q6P PRN 10/24 1645 AC PO Acetaminophen 1,000 MG Q6P PRN 10/24 1645 AC IV Albuterol Sulfate 3 ML EVERY 4 HRS/AWAKE 10/25 0800 AC 10/27 INH 1138 Allopurinol 300 MG DAILY 10/25 09 AC 10/27 PO 0818 Apixaban 5 MG BID 10/24 2100 AC 10/27 PO 0818 Atorvastatin Calcium 10 MG 1700 10/25 1700 AC 10/26 PO 173 Azithromycin 250 MG DAILY 10/27 1120 AC PO 10/28 09 Azithromycin 500 MG 2100 10/24 2100 DC 10/26 Sodium Chloride 250 ML IV 211 Digoxin 0.125 MG DAILY 10/25 09 AC 10/27 PO 0818 Diltiazem HCl 120 MG DAILY 10/25 0900 AC 10/27 PO 0818 Docusate Sodium 100 MG QPM 10/24 2100 AC 10/26 PO 2113 Duloxetine HCl 60 MG DAILY 10/25 09 AC 10/27 PO 0818 Folic Acid 1 MG BID 10/24 2100 AC 10/27 PO 0818 Furosemide 60 MG DAILY 10/25 09 AC 10/27 PO 0818 Insulin Aspart 0 AT BEDTIME 10/27 2100 SC Insulin Aspart 0 TIDAC 10/27 0800 AC 10/27 IA 1218 Insulin Aspart 4 UNITS ONCE ONE 10/26 1315 DC 10/26 IA 10/26 1316 1320 Insulin Aspart 0 TIDAC 10/25 0800 DC 10/26 IA 1732 Insulin Aspart 0 AT BEDTIME 10/25 0245 [place] 10/25 IA 2029 Insulin Detemir 5 UNITS ONCE ONE 10/27 1200 DC 10/27 IA 10/27 1201 1218 Metoprolol Tartrate 100 MG BID 10/24 2100 AC 10/27 PO 0818 Nystatin 5 ML 4 TIMES/DAY 10/24 1700 AC 10/27 PO 0817 Omeprazole 20 MG BID 10/24 2100 AC 10/27 PO 0818 Prednisone 20 MG DAILY 10/31 09 CAN PO 11/01 09 Prednisone 30 MG DAILY 10/29 09 CAN PO 10/30 900 Prednisone 10 MG DAILY 10/28 09 AC PO Prednisone 40 MG DAILY 10/27 0900 DC 10/27 PO 10/28 09 0818 Tamsulosin HCl 0.4 MG QPM 10/24 2100 AC 10/26 PO 2113 Vital Signs & I&O Last 24 Hrs of Vitals and I&O: Vital Signs Date Time Temp Pulse Resp B/P B/P Pulse O2 O2 Flow FiO2 Mean Ox Delivery Rate 10/27 1138 94 Nasal 3.0L Cannula 10/27 08 98.1 77 18 122/60 10/27 08 98.1 77 18 122/60 10/27 0620 98.1 77 18 122/60 93 CPAP 10/26 2354 95 Nasal 3.0L Cannula 10/26 2308 96 Nasal 2.5L Cannula 10/27 2131 96 Nasal 3.0L Cannula 10/26 2122 97.9 85 18 120/62 98 10/26 2113 85 126/60 10/26 2113 85 126/60 10/26 1822 96 Nasal 3.0L Cannula Intake & Output 10/27 1600 10/27 0800 10/27 0000 Intake Total 360 730 Output Total Balance 360 730 Intake, IV 250 Intake, Oral 360 480 Number 1 Bowel Movements Exam Other Physical Findings: gen-awake and alert, some confusion heent-nasal cannula cvs-s1,s2, tachycardic lungs-rare rhonchi, diminished bases abd-soft,bs+ ext-trace edema Results Last 24 Hrs of Lab Results: Reviewed Impression/Plan Impression/Plan Impression/Plan: Impression 72 year old man * chronic hypoxemic and hypercarbic respiratory failure * COPD with perhaps a mild exacerbation * a.fib/flutter - on Eliquis * DM - Insulin dependent * RA - chronic pain Plan -Given significant hyperglycemia stop current prednisone taper and resume 10mg prednisone for baseline for RA -nocturnal NIV, will need sleep study re-evaluation on an outpatient basis -maintain spo2 >92% -TRC/Nebs -at baseline maintained on 10mg prednisone (arthritis) -currently on Eliquis -concern for amenstic events and probable dementia -STR and perhaps [facility] care would be a strong recommendations if family in agreement Code status - DNR/DNI DVT prophylaxis at all times (On Eliquis) Previous patient request: Of note - if patient requires any urethral catheterization this is to be done only with urology per patient request
[2017-10-27 14:22] VITALS: BP 118/90
--- NOTE | 2017-10-27 14:49 | PN- Endocrinology ---
Assessment/Plan Endoscopy Assessment: This 72-year-old gentleman who presented with shortness of breath, was found to have mild exacerbation of COPD. His glucose level went up significantly with IV steroid. He was on 30 units of Humalog mix before breakfast and before dinner at home. He has a follow-up appointment with Dr. Darby. Plan: Please start with 35 units of Levemir every morning. Please give 30 units of Levemir now (order placed). Please give NovoLog coverage according to scale below. Please give carbohydrate level 1 diet. Check glucose before meals and at bedtime. I have advised the patient to limit to hospital food, 3 meals a day. We will follow. sliding scale Novolog before each meal as follows: 80-150 7 units 151-200 8 units 201-250 9 units 251-300 10 units 301-350 11 units 351-400 12 units >400 13 units sliding scale Novolog at bedtime as follows: 151-200 1 units 201-250 2 units 251-300 3 units 301-350 4 units 351-400 5 units >400 6 units Subjective Subjective: This is a 72-year-old gentleman who presented with shortness of breath, was found to have COPD exacerbation. Patient was given IV steroids, and glucose level went up significantly. IV steroid was discontinued and he is currently on 10 mg of prednisone daily. Patient has type 2 diabetes on insulin. At home, he was on Humalog mix 75/25 30 units before breakfast and before dinner. His blood glucose were between 100- 250 most of the time at home. He has only received sliding scale NovoLog in the hospital. His appetite is good, is able to finish all his meals. He has a follow-up appointment with Dr. Darby in office. Review of Systems Comments: GENERAL/CONSTITUTIONAL: No fever. HEAD, EYES, EARS, NOSE AND THROAT: No loss of vision or loss of hearing CARDIOVASCULAR: mild shortness of breath RESPIRATORY: No cough. GASTROINTESTINAL: No vomiting or abdominal pain. MUSCULOSKELETAL: No muscle weakness or tenderness. SKIN: No hives NEUROLOGIC: No fainting or loss of consciousness PSYCHIATRIC: Alert and oriented. ENDOCRINE: see HPI. Objective Last 24 Hrs of Vital Signs/I&O Vital Signs Date Time Temp Pulse Resp B/P B/P Pulse O2 O2 Flow FiO2 Mean Ox Delivery Rate 10/27 1422 97.8 60 20 118/90 95 Nasal 2.0L Cannula 10/27 1138 94 Nasal 3.0L Cannula 10/27 0818 98.1 77 18 122/60 10/27 0818 98.1 77 18 122/60 10/27 0620 98.1 77 18 122/60 93 CPAP 10/26 2354 95 Nasal 3.0L Cannula 10/26 2308 96 Nasal 2.5L Cannula 10/26 2132 96 Nasal 3.0L Cannula 10/26 2123 97.9 85 18 120/62 98 10/26 2113 85 126/60 10/26 2113 85 126/60 10/26 1822 96 Nasal 3.0L Cannula Intake & Output 10/27 1600 10/27 0800 10/27 0000 Intake Total 360 730 Output Total Balance 360 730 Intake, IV 250 Intake, Oral 360 480 Number 1 Bowel Movements GENERAL APPEARANCE: overweight, in no acute distress. SKIN: no hives, moist Eyes: conjunctivae were pink and moist. Extraocular movements were intact. ENT: External inspection of the ears and nose showed no masses. Normal hearing LUNGS: Auscultation of the lungs revealed decreased breath sounds,normal breath effort. CARDIOVASCULAR: normal rate on auscultation. Mild ankle edema ABDOMEN: obese abdomen MUSCULOSKELETAL: Gait was not assessed. Psychiatry: Alert and oriented x 3. Stable mood
[2017-10-28 06:28] VITALS: BP 100/68
--- NOTE | 2017-10-28 06:54 | PN- Housestaff ---
Molly Church 10/28/17 0654: Subjective Follow-up For: COPD Exacerbation Chronic Hypercarbic Respiratory Failure Diabetes Mellitus Subjective: Patient seen and examined at bedside with the team. He was alert and oriented on 3L NC sitting in his chair. Patient was determined to state he is frustrated with his time spent in the hospital over the past few months. He states he does not want to go to a rehabilation facility and prefers to go home. Team will follow up with case management and patients who has concerns about him returning home given his multiple readmissions and fluctuating levels of confusion/orientation. Review of Systems Constitutional: Denies: see HPI. Objective Last 24 Hrs of Vital Signs/I&O Vital Signs Date Time Temp Pulse Resp B/P B/P Pulse O2 O2 Flow FiO2 Mean Ox Delivery Rate 10/28 0908 80 130/82 10/28 0907 80 130/82 10/28 0818 92 Nasal 3.0L Cannula 10/28 0628 97.2 68 20 100/68 92 Nasal 2.0L Cannula 10/28 0112 3.0L 10/28 0000 92 Nasal 2.5L Cannula 10/27 2150 97.5 68 16 92 Nasal Cannula 10/27 2114 64 122/80 10/27 2114 64 122/80 10/27 2033 95 Nasal 3.0L Cannula 10/27 1600 95 Nasal 2.5L Cannula 10/27 1422 97.8 60 20 118/90 95 Nasal 2.0L Cannula 10/27 1138 94 Nasal 3.0L Cannula Intake & Output 10/28 1600 10/28 0800 10/28 0000 Intake Total 130 300 Output Total Balance 130 300 Intake, IV 10 Intake, Oral 120 300 Physical Exam General Appearance: Alert, Oriented X3, No Acute Distress Skin: No Rashes HEENT: Mucous Membr. moist/pink Neck: Supple Cardiovascular: Normal S1, Normal S2 Lungs: decreased breath sounds; no wheezing/ronchi appreciated Abdomen: Normal Bowel Sounds, No Tenderness Neurological: Normal Speech, Strength at 5/5 X4 Ext Extremities: trace pedal edema bilateral lower extremities Vascular: Normal Pulses Current Medications: Current Medications Sig/Lakisha Start time Last Medication Dose Route Stop Time Status Admin Acetaminophen 650 MG Q6P PRN 10/24 1645 AC PO Acetaminophen 1,000 MG Q6P PRN 10/24 1645 AC IV Albuterol Sulfate 3 ML EVERY 4 HRS/AWAKE 10/25 0800 AC 10/28 INH 0818 Allopurinol 300 MG DAILY 10/25 0900 AC 10/28 PO 0908 Apixaban 5 MG BID 10/24 2100 AC 10/28 PO 0908 Atorvastatin Calcium 10 MG 1700 10/25 1700 AC 10/27 PO 1740 Azithromycin 250 MG DAILY 10/27 1120 DC 10/28 PO 10/28 0901 0908 Azithromycin 500 MG 2100 10/24 2100 DC 10/26 Sodium Chloride 250 ML IV 211 Digoxin 0.125 MG DAILY 10/25 0900 AC 10/28 PO 0908 Diltiazem HCl 120 MG DAILY 10/25 0900 AC 10/28 PO 0908 Docusate Sodium 100 MG QPM 10/24 2100 AC 10/27 PO 211 Duloxetine HCl 60 MG DAILY 10/25 0900 AC 10/28 PO 0908 Folic Acid 1 MG BID 10/24 2100 AC 10/28 PO 0908 Furosemide 60 MG DAILY 10/25 0900 AC 10/28 PO 0908 Insulin Aspart 0 AT BEDTIME 10/27 2099 CAN SC Insulin Aspart 0 TIDAC/HS 10/27 2100 AC 10/28 SC 0906 Insulin Aspart 0 TIDAC 10/27 0800 DC 10/27 SC 1741 Insulin Detemir 35 UNITS DAILY 10/28 0900 DC SC Insulin Detemir 17 UNITS BID 10/28 0900 AC 10/28 SC 0906 Insulin Detemir 10 UNITS ONCE ONE 10/27 2215 DC 10/27 MA 10/27 2216 2232 Insulin Detemir 0 .STK-MED ONE 10/27 1719 DC SC Insulin Detemir 30 UNITS ONCE ONE 10/27 1500 DC 10/27 MA 10/27 1501 1741 Insulin Detemir 5 UNITS ONCE ONE 10/27 1200 DC 10/27 MA 10/27 1201 1218 Metoprolol Tartrate 100 MG BID 10/24 2100 AC 10/28 PO 0907 Nystatin 5 ML 4 TIMES/DAY 10/24 1700 AC 10/28 PO 09 Omeprazole 20 MG BID 10/24 2100 AC 10/28 PO 0908 Prednisone 20 MG DAILY 10/31 0900 CAN PO 11/01 09 Prednisone 30 MG DAILY 10/29 0900 CAN PO 10/30 09 Prednisone 10 MG DAILY 10/28 0900 AC 10/28 PO 09 Prednisone 40 MG DAILY 10/27 0900 DC 10/27 PO 10/28 0901 0818 Tamsulosin HCl 0.4 MG QPM 10/24 2100 AC 10/27 PO 4 Last 24 Hrs of Lab/Kiel Results Last 24 Hrs of Labs/Mics: Laboratory Tests 10/27/17 1741: Glucose 496 H Assessment/Plan Assessment: 72 y/o M with pmh sig for ch resp failure, COPD, obstructive sleep apnea, with ongoing tobacco use disorder, 02 DEPENDANT, AFIB, ch diastolic CHF, hypertension , Insulin dependent diabetes, was brought in because he was found to be confused and short of breath by family. Required high flow in EMS. Head CT: No acute intracranial abnormality. Mild small vessel ischemic changes and mild diffuse brain parenchymal volume loss. CXR: No acute pulmonary findings 10/28: Patient more oriented today than prior to weekend. He is frustrated with his mutliple admissions to the hospital and denies placement in rehab again. Patients was spoken to in person on Wednesday 10/25 who had concerns about patients mental status and her ability to care of patient at home given her age. Plan to follow with endocrine regarding blood sugars and case management for placement. Psychiatry for evaluation of patients capacity. PROBLEM LIST: 1. Chronic Hypoxemic and Hypercarbic Respiratory Failure 2. COPD 3. Atrial Fibrillation on Eliquis 4. Diabetes Mellitus - Insulin Dependent 5. Rheumatoid Arthritis/Gout Chronic Hypoxemic/Hypercarbic Respiratory Failure/COPD * 10MG OF Prednisone for maintanence of RA as advised by Dr. Blake of Pulmonology. * Continue baseline home O2 3L NC with saturations >92% * Nocturnal NIV - outpatient sleep study * TRC/Nebs Atrial Fibrillation * Continue Eliquis, Digoxin, Cardizem, Lopressor CHF with Diastolic Dysfunction Last EF was 55% * Continue Lasix 60mg PO Daily Diabetes * Appreciate Endocrinology consultation who has split Levemir to 17 units BID for transition to twice daily humalog upon discharge (FSG 258 today) * said that he takes 35 units Humalog at breakfast and 30 units for dinner * CC1 Diet started * Lipitor 10mg daily Rheumatoid Arthritis/Gout * Received his weekly methotrexate dose this week * Allopurinol continued * Restarted Prednisone 10mg for RA * Continue Cymbalta 60mg PO Daily Code Status: DNR/DNI - Spoke with on phone and as per patient DVT PPx: Eliquis Diet: CC1 Problem List: 1. COPD exacerbation 2. Diabetes 3. Rheumatoid arthritis 4. History of chronic carbon dioxide retention 5. Physical deconditioning Pain Ratin Pain Location: denies pain today Pain Goal: Remain pain free Pain Plan: as per pain pathway Tomorrow's Labs & Rationales: cbc bep Maxwell TINEO,Kathy 10/28/17 1452: Attending MD Review Statement Attending Statement Attending MD Statement: examined this patient, discuss w/resident/PA/PIE DOUGH ROLLER, agreed w/resident/PA/PIE DOUGH ROLLER, reviewed EMR data (avail), discussed with nursing, discussed with case mgmt, amended to note Attending Assessment/Plan: Patient seen and examined. Resting comfortably. Not in acute distress. From respiratory standpoint he appears to be doing much better. Lungs are clear to auscultation. Maintaining saturation on 2 L of oxygen. Pulmonary pulmonary standpoint he is medically stable however blood glucose levels poorly controlled likely secondary to steroid therapy. He was seen by the endocrinology service today and we have started him on Levemir insulin. Once his glucose levels begin to improve he may be discharged from the hospital. Regarding disposition nursing staff reports that he is unsteady on his feet requires walker and assist of one. Patient however is very adamant of not being discharged to shelter facility wants to go home. Reports poor experiencing shelter facilities in the past. Will reevaluate after his blood glucose levels have improved. He was evaluated by the psychiatric service and does have capacity to make his own decisions.
--- NOTE | 2017-10-28 08:22 | PN- Diabetes ---
Assessment/Plan Diabetes Assessment: This 72-year-old gentleman who presented with shortness of breath, was found to have mild exacerbation of COPD. His glucose level went up significantly with IV steroid. He was on 30 units of Humalog mix before breakfast and before dinner at home. He has a follow-up appointment with Dr. Darby. His BG went down significantly over night after 30 units of Levemir was given Plan: I will split the Levemir to 17 units bid (order placed), which will make transition to twice daily Humalog mix easier once he is discharged. Will follow Subjective Subjective: His blood glucose level has went down over night from over 400 to 200s. Objective Last 24 Hrs of Vital Signs/I&O Vital Signs Date Time Temp Pulse Resp B/P B/P Pulse O2 O2 Flow FiO2 Mean Ox Delivery Rate 10/28 0818 92 Nasal 3.0L Cannula 10/28 0628 97.2 68 20 100/68 92 Nasal 2.0L Cannula 10/28 0112 3.0L 10/28 0000 92 Nasal 2.5L Cannula 10/27 2150 97.5 68 16 92 Nasal Cannula 10/27 2114 64 122/80 10/274 64 122/80 10/27 2033 95 Nasal 3.0L Cannula 10/27 1600 95 Nasal 2.5L Cannula 10/27 1422 97.8 60 20 118/90 95 Nasal 2.0L Cannula 10/27 1138 94 Nasal 3.0L Cannula Intake & Output 10/28 1600 10/28 0800 10/28 0000 Intake Total 130 300 Output Total Balance 130 300 Intake, IV 10 Intake, Oral 120 300
--- NOTE | 2017-10-28 13:12 | Cons- Psychiatry ---
Psychiatric Consult Date of Consult: 10/28/17 Reason for Consult: Capacity evaluation History of Present Illness: This 72-year-old male was admitted having presented with shortness of breath secondary to an exacerbation of COPD. Medical history is also significant for hypertension, diabetes mellitus, rheumatoid arthritis on methotrexate, atrial flutter/fibrillation, BOB on CPAP. The patient is medically ready for discharge. He has been encouraged to enter short-term rehabilitation facility. He has decided not to go, opting instead to go home. Medical team reports that the patient has been intermittently confused during his admission. On at least some occasions, this is correlation with elevated blood sugar. He has been alert and oriented for more than 24 hours. He reports that his team wants him to go to rehab "so that I can be safer, better on my feet". The patient says that he does not want to go to rehab because he has had two bad experiences in the past. He is aware that the risk of his falling is less as a rehab facility. He is also aware that she is is struggling to manage him at home. The patient reports that he is in need of cataract surgery and that this is his priority right now. He reports that his cardiac condition has been stabilized and he is now a better candidate for surgery. Allergies: Coded Allergies: Sulfa (Sulfonamide Antibiotics) (Intermediate, RASH/HIVES 06/06/17) Current Medications: Med Acetaminophen 650 MG PO Q6P PRN 10/24/17 1645 Acetaminophen 1,000 MG IV Q6P PRN 10/24/17 1645 Albuterol Sulfate 3 ML INH EVERY 4 HRS/AWAKE 10/25/17 0800 Allopurinol 300 MG PO DAILY 10/25/17 0900 Apixaban 5 MG PO BID 10/24/17 2100 Atorvastatin Calcium 10 MG PO 1700 10/25/17 1700 Digoxin 0.125 MG PO DAILY 10/25/17 0900 Diltiazem HCl 120 MG PO DAILY 10/25/17 0900 Docusate Sodium 100 MG PO QPM 10/24/172099 Duloxetine HCl 60 MG PO DAILY 10/25/17 0900 Folic Acid 1 MG PO BID 10/24/17 2100 Furosemide 60 MG PO DAILY 10/25/17 0900 Insulin Aspart SC TIDAC/HS 10/27/17 2100 Insulin Detemir 17 UNITS SC BID 10/28/17 0900 Metoprolol Tartrate 100 MG PO BID 10/24/172099 Nystatin 5 ML PO 4 TIMES/DAY 10/24/17 1700 Omeprazole 20 MG PO BID 10/24/172099 Prednisone 10 MG PO DAILY 10/28/17899 Tamsulosin HCl 0.4 MG PO QPM 10/24/172099 Past History Past Medical History Neurological: NONE EENT: NONE Cardiovascular: AFIB, CHF, hypertension Respiratory: COPD, obstructive sleep apnea, with ongoing tobacco use disorder 02 DEPENDANT Gastrointestinal: NONE Hepatic: NONE Renal: benign prost hyperplasia Musculoskeletal: rheumatoid arthritis Psychiatric: NONE Endocrine: INSULIN DEPENDENT DIABETIC TYPE II Blood Disorders: NONE Cancer(s): BASAL CELL CA 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 He was interviewed sitting by his bed. He was alert and oriented x3. Vital signs are normal. Eye contact was good. Speech was normal in rate, rhythm, volume and tone. The patient described his mood is good. His affect was a little anxious, somewhat defensive. He was not suicidal or homicidal. Thought process was normal in mormon, stream and form. There were no delusions or obsessions. Attention and concentration were good. There was no perceptual abnormality. Impulse control is fair. Intelligence level is average, fund of knowledge average, use of language appropriate. The patient's recent and remote memory are intact. Insight is fair. Judgment is unimpaired. Lab Results: Lab Glucose 496 mg/dL H 10/27/17 1741 Hct 37.0 % L 10/26/17 0748 Hgb 12.2 G/DL L 10/26/17 0748 RBC 3.98 /CUMM L 10/26/17 0748 RDW 17.0 % H 10/26/17 0748 WBC 13.0 /CUMM H 10/26/17 0748 Impression: At present the patient has capacity to make the decision not to enter rehab. He is aware that rehab is being recommended to reduce his fall risk. He is aware that his is struggling to care for him at home. Discussed the possible risks of a fall given his age and health condition including fractured hip. The patient was able to process and understand these risks. He still makes a decision not to go to short-term rehabilitation. Thank you for consulting us on this patient.
--- NOTE | 2017-10-28 13:15 | PN- Pulmonary ---
Subjective HPI/Critical Care Issues: pt seen and examined less consfusion, alert and oriented feels better down to 10mg prednisone endocrinology following no n/v/d/c, no cp, no cedeno Objective Current Medications: Current Medications Sig/Lakisha Start time Last Medication Dose Route Stop Time Status Admin Acetaminophen 650 MG Q6P PRN 10/24 1645 AC PO Acetaminophen 1,000 MG Q6P PRN 10/24 1645 AC IV Albuterol Sulfate 3 ML EVERY 4 HRS/AWAKE 10/25 0800 AC 10/28 INH 0818 Allopurinol 300 MG DAILY 10/25 0900 AC 10/28 PO 0908 Apixaban 5 MG BID 10/24 2100 AC 10/28 PO 0908 Atorvastatin Calcium 10 MG 1700 10/25 1700 AC 10/27 PO 1740 Azithromycin 250 MG DAILY 10/27 1120 DC 10/28 PO 10/28 0901 0908 Digoxin 0.125 MG DAILY 10/25 0900 AC 10/28 PO 0908 Diltiazem HCl 120 MG DAILY 10/25 0900 AC 10/28 PO 0908 Docusate Sodium 100 MG QPM 10/24 2100 AC 10/27 PO 2113 Duloxetine HCl 60 MG DAILY 10/25 0900 AC 10/28 PO 0908 Folic Acid 1 MG BID 10/24 2100 AC 10/28 PO 0908 Furosemide 60 MG DAILY 10/25 0900 AC 10/28 PO 0908 Insulin Aspart 0 AT BEDTIME 10/27 2100 CAN SC Insulin Aspart 0 TIDAC/HS 10/27 2100 AC 10/28 SC 1222 Insulin Aspart 0 TIDAC 10/27 0800 DC 10/27 SC 1741 Insulin Detemir 35 UNITS DAILY 10/28 0900 DC SC Insulin Detemir 17 UNITS BID 10/28 0900 AC 10/28 SC 0906 Insulin Detemir 10 UNITS ONCE ONE 10/27 2215 DC 10/27 SC 10/27 2216 2232 Insulin Detemir 0 .STK-MED ONE 10/27 1719 DC SC Insulin Detemir 30 UNITS ONCE ONE 10/27 1500 DC 10/27 SC 10/27 1501 1741 Metoprolol Tartrate 100 MG BID 10/24 2100 AC 10/28 PO 0907 Nystatin 5 ML 4 TIMES/DAY 10/24 1700 AC 10/28 PO 0907 Omeprazole 20 MG BID 10/24 2100 AC 10/28 PO 0908 Prednisone 10 MG DAILY 10/28 0900 AC 10/28 PO 09 Tamsulosin HCl 0.4 MG QPM 10/24 2100 AC 10/27 PO 211 Vital Signs & I&O Last 24 Hrs of Vitals and I&O: Vital Signs Date Time Temp Pulse Resp B/P B/P Pulse O2 O2 Flow FiO2 Mean Ox Delivery Rate 10/28 0908 80 130/82 10/28 0907 80 130/82 10/28 0818 92 Nasal 3.0L Cannula 10/28 0800 Nasal 2.5L Cannula 10/28 0628 97.2 68 20 100/68 92 Nasal 2.0L Cannula 10/28 0112 3.0L 10/28 0000 92 Nasal 2.5L Cannula 10/27 2150 97.5 68 16 92 Nasal Cannula 10/274 64 122/80 10/274 64 122/80 10/27 2033 95 Nasal 3.0L Cannula 10/27 1600 95 Nasal 2.5L Cannula 10/27 1422 97.8 60 20 118/90 95 Nasal 2.0L Cannula Intake & Output 10/28 1600 10/28 0800 10/28 0000 Intake Total 130 300 Output Total Balance 130 300 Intake, IV 10 Intake, Oral 120 300 Exam Other Physical Findings: gen-awake and alert heent-nasal cannula cvs-s1,s2, tachycardic lungs-rare rhonchi, diminished bases abd-soft,bs+ ext-trace edema Results Last 24 Hrs of Lab Results: Laboratory Tests 10/27/17 1741: Glucose 496 H Impression/Plan Impression/Plan Impression/Plan: Impression 72 year old man * chronic hypoxemic and hypercarbic respiratory failure * COPD with perhaps a mild exacerbation * a.fib/flutter - on Eliquis * DM - Insulin dependent * RA - chronic pain Plan -resumed 10mg prednisone for baseline for RA -nocturnal NIV, will need sleep study re-evaluation on an outpatient basis -maintain spo2 >92% -TRC/Nebs -at baseline maintained on 10mg prednisone (arthritis) -currently on Eliquis -concern for amenstic events and probable dementia -STR and perhaps cattle inspector care would be a strong recommendations if family in agreement Code status - DNR/DNI DVT prophylaxis at all times (On Eliquis)
[2017-10-28 14:12] VITALS: BP 135/80
[2017-10-28 22:18] VITALS: BP 110/56
--- NOTE | 2017-10-29 06:26 | PN- Housestaff ---
Molly Church 10/29/17 0625: Subjective Follow-up For: COPD Exacerbation Subjective: Pt seen and examined at bedside this morning. He is very eager to go home today. Meeting with patients and case management today to discuss further discharge planning. Review of Systems Constitutional: Denies: see HPI. Objective Last 24 Hrs of Vital Signs/I&O Vital Signs Date Time Temp Pulse Resp B/P B/P Pulse O2 O2 Flow FiO2 Mean Ox Delivery Rate 10/29 0841 96 Nasal 3.0L Cannula 10/29 0829 74 104/64 10/29 0800 Nasal 3.0L Cannula 10/29 0000 Nasal Cannula 10/28 2251 Nasal 3.0L Cannula 10/28 2218 98.3 68 20 110/56 98 Nasal 3.0L Cannula 10/28 2159 68 110/56 10/28 2158 68 110/56 10/28 1900 Nasal 3.0L Cannula 10/28 1805 95 Nasal 3.0L Cannula 10/28 1600 Nasal 2.5L Cannula 10/28 1412 97.9 78 20 135/80 92 Nasal 2.0L Cannula Intake & Output 10/29 1600 10/29 0800 10/29 0000 Intake Total 240 Output Total Balance 240 Intake, IV 0 Intake, Oral 240 Number 1 0 Bowel Movements Physical Exam General Appearance: Alert, Oriented X3, Cooperative, No Acute Distress Skin: No Rashes Skin Temp/Moisture Exam: Warm/Dry HEENT: Mucous Membr. moist/pink Neck: Supple Cardiovascular: Normal S1, Normal S2 Lungs: decreased breath sounds bilaterally, no wheezing/ronchi/crackles Abdomen: Normal Bowel Sounds, Soft, No Tenderness Neurological: Normal Speech, Strength at 5/5 X4 Ext Extremities: No Clubbing, Trace pedal edema bilateral lower extremities Vascular: Normal Pulses Current Medications: Current Medications Sig/Lakisha Start time Last Medication Dose Route Stop Time Status Admin Acetaminophen 650 MG Q6P PRN 10/24 1645 AC PO Acetaminophen 1,000 MG Q6P PRN 10/24 1645 AC IV Albuterol Sulfate 3 ML EVERY 4 HRS/AWAKE 10/25 08 AC 10/29 INH 1152 Allopurinol 300 MG DAILY 10/25 09 AC 10/29 PO 0831 Apixaban 5 MG BID 10/24 2100 AC 10/29 PO 0828 Atorvastatin Calcium 10 MG 1700 10/25 1700 AC 10/28 PO 1745 Digoxin 0.125 MG DAILY 10/25 899 AC 10/29 PO 0829 Diltiazem HCl 120 MG DAILY 10/25 899 AC 10/29 PO 08 Docusate Sodium 100 MG QPM 10/24 2099 AC 10/28 PO 2158 Duloxetine HCl 60 MG DAILY 10/25 899 AC 10/29 PO 0828 Folic Acid 1 MG BID 10/24 2099 AC 10/29 PO 0829 Furosemide 60 MG DAILY 10/25 899 AC 10/29 PO 0829 Insulin Aspart 0 TIDAC/HS 10/27 2099 r 10/29 SC 1241 Insulin Detemir 17 UNITS BID 10/28 899 AC 10/29 SC 0826 Metoprolol Tartrate 100 MG BID 10/24 2099 AC 10/29 PO 0830 Nystatin 5 ML 4 TIMES/DAY 10/24 1700 AC 10/29 PO 1240 Omeprazole 20 MG BID 10/24 2099 AC 10/29 PO 0830 Potassium Chloride 40 MEQ ONCE ONE 10/29 1345 AC PO 10/29 1346 Prednisone 10 MG DAILY 10/28 899 AC 10/29 PO 0830 Tamsulosin HCl 0.4 MG QPM 10/24 2099 AC 10/28 PO 215 Last 24 Hrs of Lab/Kiel Results Last 24 Hrs of Labs/Mics: Laboratory Tests 10/29/17 0700: Anion Gap 6, Estimated GFR > 60, BUN/Creatinine Ratio 34.3 H, Magnesium Pending , CBC w Diff NO MAN DIFF REQ, RBC 3.85 L, MCV 93.1, MCH 30.6, MCHC 32.8 L, RDW 16.5 H, MPV 8.7, Gran % 73.0, Lymphocytes % 18.3 L, Monocytes % 7.7, Eosinophils % 0.7, Basophils % 0.3, Absolute Granulocytes 7.5 H, Absolute Lymphocytes 1.9, Absolute Monocytes 0.8 H, Absolute Eosinophils 0.1, Absolute Basophils 0 Assessment/Plan Assessment: 72 y/o M with pmh sig for ch resp failure, COPD, obstructive sleep apnea, with ongoing tobacco use disorder, O2 Dependent, AFIB, ch diastolic CHF, hypertension , Insulin dependent diabetes, was brought in because he was found to be confused and short of breath by family. Required high flow in EMS. Head CT: No acute intracranial abnormality. Mild small vessel ischemic changes and mild diffuse brain parenchymal volume loss. CXR: No acute pulmonary findings 10/29: Family meeting with case management today discussed for home discharge planning in the AM. Family requested at 9AM tomorrow. Patient discussed that he could benefit from proper rehab as he admits he is weak in his lower extremities. PROBLEM LIST: 1. Chronic Hypoxemic and Hypercarbic Respiratory Failure 2. COPD 3. Atrial Fibrillation on Eliquis 4. Diabetes Mellitus - Insulin Dependent 5. Rheumatoid Arthritis/Gout Chronic Hypoxemic/Hypercarbic Respiratory Failure/COPD * 10MG OF Prednisone for maintanence of RA as advised by Dr. Blake of Pulmonology. * Continue baseline home O2 3L NC with saturations >92% * Nocturnal NIV - outpatient sleep study * TRC/Nebs Atrial Fibrillation * Continue Eliquis, Digoxin, Cardizem, Lopressor CHF with Diastolic Dysfunction Last EF was 55% * Continue Lasix 60mg PO Daily * Monitor BEP Diabetes * Appreciate Endocrinology consultation - sliding scale adjusted today * Continuing Levemir 17 units twice a day * Follow up with Dr. Darby outpatient on discharge * Finger sticks today: 229, 306, 306 Rheumatoid Arthritis/Gout * Received his weekly methotrexate dose this week * Allopurinol continued * Restarted Prednisone 10mg for RA * Continue Cymbalta 60mg PO Daily Code Status: DNR/DNI - Spoke with on phone and as per patient DVT PPx: Eliquis Diet: CC1 Problem List: 1. Diabetes 2. Rheumatoid arthritis 3. COPD exacerbation 4. Physical deconditioning 5. CHF (congestive heart failure) Pain Ratin Pain Location: denied pain today Pain Goal: Remain pain free Pain Plan: as per pain pathway Tomorrow's Labs & Rationales: cbc bep Kathy Arreola MD 10/29/17 1146: Attending MD Review Statement Attending Statement Attending MD Statement: examined this patient, discuss w/resident/PA/ACQUISITIONS ANALYST, agreed w/resident/PA/ACQUISITIONS ANALYST, reviewed EMR data (avail), discussed with nursing, discussed with case mgmt, amended to note Attending Assessment/Plan: Patient resting comfortably not in any acute distress. No issues overnight. He remains alert and oriented 3 and continues to converse appropriately. Blood glucose levels are still elevated. Will follow recommendations of the endocrinology service regarding his insulin regimen. He remains adamant about being discharged home. His is ready to accept the patient home. We will provide him with home visiting nurse services. We will begin discharge plans after discussion with endocrinology service regarding his insulin regimen.
[2017-10-29 09:58] LABS: ABSOLUTE BASOPHIL COUNT 0 /CUMM (0.0-0.2); ABSOLUTE EOSINOPHIL COUNT 0.1 /CUMM (0.0-0.7); ABSOLUTE GRANULOCYTE CT 7.5 /CUMM (1.4-6.5); ABSOLUTE LYMPH COUNT 1.9 /CUMM (1.2-3.4); ABSOLUTE MONOCYTE COUNT 0.8 /CUMM (0.10-0.60); BASOPHIL % 0.3 % (0.0-2.0); EOSINOPHIL % 0.7 % (0-5); HEMATOCRIT 35.9 % (42-52); MEAN CORPUSCULAR HGB 30.6 PG (27.0-31.0); MEAN CORPUSCULAR HGB CONC 32.8 G/DL (33.0-37.0); MEAN CORPUSCULAR VOLUME 93.1 FL (80.0-94.0); MEAN PLATELET VOLUME 8.7 FL (7.4-10.4); PLATELET COUNT 116 /CUMM (130-400); RBC DISTRIBUTION WIDTH 16.5 % (11.5-14.5); RED BLOOD CELL CT 3.85 /CUMM (4.70-6.10); WHITE BLOOD CELL COUNT 10.2 /CUMM (4.8-10.8)
--- NOTE | 2017-10-29 12:46 | PN- Diabetes ---
Assessment/Plan Diabetes Assessment: This 72-year-old gentleman who presented with shortness of breath, was found to have mild exacerbation of COPD. His glucose level went up significantly with IV steroid. He was on 30 units of Humalog mix before breakfast and before dinner at home. He has a follow-up appointment with Dr. Darby. Plan: Please continue his Levemir 17 units twice a day. Increase NovoLog coverage according to scale as below. We will follow. Inpatient Diabetes Orders Before Each Meal: < 80 mg/dl: 0 80-100 mg/dl: 10 101-120 mg/dl: 10 121-150 mg/dl: 10 151-200 mg/dl: 12 201-250 mg/dl: 14 251-300 mg/dl: 16 301-350 mg/dl: 18 351-400 mg/dl: 20 > 400 mg/dl: 22 Bedtime: < 80 mg/dl: 0 80-100 mg/dl: 0 101-120 mg/dl: 0 121-150 mg/dl: 0 151-200 mg/dl: 2 201-250 mg/dl: 4 251-300 mg/dl: 6 301-350 mg/dl: 8 351-400 mg/dl: 10 > 400 mg/dl: 12 Subjective Subjective: His glucose remains elevated in the 200-300 range. They tend to go up after meals. Objective Last 24 Hrs of Vital Signs/I&O Vital Signs Date Time Temp Pulse Resp B/P B/P Pulse O2 O2 Flow FiO2 Mean Ox Delivery Rate 10/29 0841 96 Nasal 3.0L Cannula 10/29 0829 74 104/64 10/29 0800 Nasal 3.0L Cannula 10/29 0000 Nasal Cannula 10/28 2251 Nasal 3.0L Cannula 10/288 98.3 68 20 110/56 98 Nasal 3.0L Cannula 10/28 2159 68 110/56 10/28 2158 68 110/56 10/28 1900 Nasal 3.0L Cannula 10/28 1805 95 Nasal 3.0L Cannula 10/28 1600 Nasal 2.5L Cannula 10/28 1412 97.9 78 20 135/80 92 Nasal 2.0L Cannula Intake & Output 10/29 1600 10/29 0800 10/29 0000 Intake Total 240 Output Total Balance 240 Intake, IV 0 Intake, Oral 240 Number 1 0 Bowel Movements
[2017-10-29 13:50] VITALS: BP 120/80
--- NOTE | 2017-10-29 14:10 | PN- Pulmonary ---
Subjective HPI/Critical Care Issues: pt seen and examined alert and oriented 10mg prednisone endocrinology following no n/v/d/c, no cp, no cedeno Objective Current Medications: Current Medications Sig/Lakisha Start time Last Medication Dose Route Stop Time Status Admin Acetaminophen 650 MG Q6P PRN 10/24 1645 AC PO Acetaminophen 1,000 MG Q6P PRN 10/24 1645 AC IV Albuterol Sulfate 3 ML EVERY 4 HRS/AWAKE 10/25 08 AC 10/29 INH 1152 Allopurinol 300 MG DAILY 10/25 09 AC 10/29 PO 0831 Apixaban 5 MG BID 10/24 2100 AC 10/29 PO 0828 Atorvastatin Calcium 10 MG 1700 10/25 1700 AC 10/28 PO 1745 Digoxin 0.125 MG DAILY 10/25 09 AC 10/29 PO 0829 Diltiazem HCl 120 MG DAILY 10/25 0900 AC 10/29 PO 0828 Docusate Sodium 100 MG QPM 10/24 2100 AC 10/28 PO 2158 Duloxetine HCl 60 MG DAILY 10/25 09 AC 10/29 PO 0828 Folic Acid 1 MG BID 10/24 2099 AC 10/29 PO 0829 Furosemide 60 MG DAILY 10/25 0900 AC 10/29 PO 0829 Insulin Aspart 0 TIDAC/HS 10/27 2100 r 10/29 SC 1241 Insulin Detemir 17 UNITS BID 10/28 0900 AC 10/29 SC 0826 Metoprolol Tartrate 100 MG BID 10/24 2100 AC 10/29 PO 0830 Nystatin 5 ML 4 TIMES/DAY 10/24 1700 AC 10/29 PO 1240 Omeprazole 20 MG BID 10/24 2099 AC 10/29 PO 0830 Potassium Chloride 40 MEQ ONCE ONE 10/29 1345 DC PO 10/29 1346 Prednisone 10 MG DAILY 10/28 0900 AC 10/29 PO 0830 Tamsulosin HCl 0.4 MG QPM 10/24 2100 AC 10/28 PO 2158 Vital Signs & I&O Last 24 Hrs of Vitals and I&O: Vital Signs Date Time Temp Pulse Resp B/P B/P Pulse O2 O2 Flow FiO2 Mean Ox Delivery Rate 10/29 1350 98.3 82 20 120/80 93 Nasal 3.0L Cannula 10/29 0841 96 Nasal 3.0L Cannula 10/29 0829 74 104/64 10/29 0800 Nasal 3.0L Cannula 10/29 0000 Nasal Cannula 10/28 2251 Nasal 3.0L Cannula 10/28 2218 98.3 68 20 110/56 98 Nasal 3.0L Cannula 10/28 2159 68 110/56 10/28 2158 68 110/56 10/28 1900 Nasal 3.0L Cannula 10/28 1805 95 Nasal 3.0L Cannula 10/28 1600 Nasal 2.5L Cannula 10/28 1412 97.9 78 20 135/80 92 Nasal 2.0L Cannula Intake & Output 10/29 1600 10/29 0800 10/29 0000 Intake Total 240 Output Total Balance 240 Intake, IV 0 Intake, Oral 240 Number 1 0 Bowel Movements Exam Other Physical Findings: gen-awake and alert heent-nasal cannula cvs-s1,s2, tachycardic lungs-rare rhonchi, diminished bases abd-soft,bs+ ext-trace edema Results Last 24 Hrs of Lab Results: Laboratory Tests 10/29/17 0700: Anion Gap 6, Estimated GFR > 60, BUN/Creatinine Ratio 34.3 H, Magnesium Pending , CBC w Diff NO MAN DIFF REQ, RBC 3.85 L, MCV 93.1, MCH 30.6, MCHC 32.8 L, RDW 16.5 H, MPV 8.7, Gran % 73.0, Lymphocytes % 18.3 L, Monocytes % 7.7, Eosinophils % 0.7, Basophils % 0.3, Absolute Granulocytes 7.5 H, Absolute Lymphocytes 1.9, Absolute Monocytes 0.8 H, Absolute Eosinophils 0.1, Absolute Basophils 0 Impression/Plan Impression/Plan Impression/Plan: Impression 72 year old man * chronic hypoxemic and hypercarbic respiratory failure * COPD with perhaps a mild exacerbation * a.fib/flutter - on Eliquis * DM - Insulin dependent * RA - chronic pain Plan -10mg prednisone for baseline for RA -nocturnal NIV, will need sleep study re-evaluation on an outpatient basis -maintain spo2 >92% -TRC/Nebs -at baseline maintained on 10mg prednisone (arthritis) -currently on Eliquis -concern for amenstic events and probable dementia -discharge planning Code status - DNR/DNI DVT prophylaxis at all times (On Eliquis)
--- NOTE | 2017-10-29 14:38 | Patient Discharge Instructions ---
Discharge Instructions General Discharge Information You were seen/treated for: COPD exacerbation Diabetes Mellitus Special Instructions: Please follow up with your PCP within 1-2 weeks of discharge. Please follow up with Endocrinology Dr. Darby within 1 week of discharge. Please follow up with [facility] Dr. Blake within 1-2 weeks of discharge. Return to ED with worsening shortness of breath, increased oxygen requirements, fevers, chills, nausea, vomiting, diarrhea. Acute Coronary Syndrome Inclusion Criteria At DC or during hospital stay patient has or had the following: ACS DIAGNOSIS No Discharge Core Measures Meds if any: Prescribed or Continued at Discharge Meds if any: NOT Prescribed or Continued at Discharge Congestive Heart Failure Inclusion Criteria At DC or during hospital stay patient has or had the following: CHF DIAGNOSIS No Discharge Core Measures Meds if any: Prescribed or Continued at Discharge Meds if any: NOT Prescribed or Continued at Discharge Cerebrovascular accident Inclusion Criteria At DC or during hospital stay patient has or had the following: CVA/TIA Diagnosis No Discharge Core Measures Meds if any: Prescribed or Continued at Discharge Meds if any: NOT Prescribed or Continued at Discharge Venous thromboembolism Inclusion Criteria VTE Diagnosis No VTE Type NONE VTE Confirmed by (Test) NONE Discharge Core Measures - Per Current guidelines, there needs to be overlap - treatment for the first 5 days of Warfarin therapy. - If discharged on Warfarin prior to 5 days of - overlap therapy, the patient will need to be - assessed for post discharge needs including - *Post discharge parental anticoagulation - *Warfarin and/or parental anticoagulation education - *Follow up date to check INR post discharge At least 5 days overlap therapy as Inpatient No Meds if any: Prescribed or Continued at Discharge Note: Overlap Therapy is Warfarin and Anticoagulant Meds if any: NOT Prescribed or Continued at Discharge
[2017-10-29 22:40] VITALS: BP 128/62
[2017-10-30 06:44] VITALS: BP 104/62
--- NOTE | 2017-10-30 06:59 | PN- Housestaff ---
Molly Church 10/30/17 0658: Subjective Follow-up For: CODP exacerbation Diabetes Mellitus Subjective: Pt seen and examined at bedside this morning. Sister at bedside. Patient stable for discharge to home today. No taper for discharge as per pulmonology. Will follow up recommendations as per Endocrinology. Patient stable prior to discharge, no acute over night events and no new complaints this morning. Review of Systems Constitutional: Denies: see HPI. Objective Last 24 Hrs of Vital Signs/I&O Vital Signs Date Time Temp Pulse Resp B/P B/P Pulse O2 O2 Flow FiO2 Mean Ox Delivery Rate 10/30 0836 Nasal 3.0L Cannula 10/30 0644 98.0 98 20 104/62 95 Nasal Cannula 10/30 0139 CPAP 3.0L 10/30 0000 Nasal 3.0L Cannula 10/29 2240 97.9 72 20 128/62 97 Nasal 2.0L Cannula 10/29 2208 97 CPAP 3.0L 10/29 2022 72 128/62 10/29 202 72 128/62 10/29 1625 96 Nasal 3.0L Cannula Intake & Output 10/30 1600 10/30 0800 10/30 0000 Intake Total 120 180 Output Total Balance 120 180 Intake, Oral 120 180 Physical Exam General Appearance: Alert, Oriented X3, Cooperative, No Acute Distress Skin: No Rashes Skin Temp/Moisture Exam: Warm/Dry HEENT: Mucous Membr. moist/pink Neck: Supple Cardiovascular: Regular Rate, Normal S1, Normal S2 Lungs: decreased breath sounds; improved airation; no wheezing/rales/ronchi Abdomen: Normal Bowel Sounds, Soft, No Tenderness Neurological: Normal Speech Extremities: No Cyanosis Vascular: Normal Pulses Current Medications: Current Medications Sig/Lakisha Start time Last Medication Dose Route Stop Time Status Admin Acetaminophen 650 MG Q6P PRN 10/24 1645 DCD PO Acetaminophen 1,000 MG Q6P PRN 10/24 1645 DCD IV Albuterol Sulfate 3 ML EVERY 4 HRS/AWAKE 10/26 799 DCD 10/29 INH 205 Allopurinol 300 MG DAILY 10/25 899 DCD 10/30 PO 0829 Apixaban 5 MG BID 10/24 2100 DCD 10/30 PO 0829 Atorvastatin Calcium 10 MG 1700 10/25 1700 DCD 10/29 PO 1801 Digoxin 0.125 MG DAILY 10/25 899 DCD 10/30 PO 0829 Diltiazem HCl 120 MG DAILY 10/25 09 DCD 10/30 PO 0829 Docusate Sodium 100 MG QPM 10/24 2099 DCD 10/29 PO 2022 Duloxetine HCl 60 MG DAILY 10/25 0900 DCD 10/30 PO 0829 Folic Acid 1 MG BID 10/24 2100 DCD 10/30 PO 0830 Furosemide 60 MG DAILY 10/25 09 DCD 10/30 PO 0830 Insulin Aspart 0 TIDAC/HS 10/27 2099 DCD 10/30 SC 0826 Insulin Detemir 17 UNITS BID 10/28 09 DCD 10/30 SC 0826 Metoprolol Tartrate 100 MG BID 10/24 2100 DCD 10/30 PO 0830 Nystatin 5 ML 4 TIMES/DAY 10/24 1700 DCD 10/29 PO 2022 Omeprazole 20 MG BID 10/24 2100 DCD 10/30 PO 0831 Polyethylene Glycol 17 GM DAILY 10/29 1651 DCD 10/30 PO 0832 Prednisone 10 MG DAILY 10/28 0900 DCD 10/30 PO 0831 Senna/Docusate Sodium 2 TAB DAILY PRN 10/29 1700 DCD 10/29 PO 1802 Tamsulosin HCl 0.4 MG QPM 10/24 2099 DCD 10/29 PO 2022 Last 24 Hrs of Lab/Kiel Results Last 24 Hrs of Labs/Mics: Laboratory Tests 10/30/17 0655: Anion Gap 4 L, Estimated GFR > 60, BUN/Creatinine Ratio 38.3 H Assessment/Plan Assessment: 72 y/o M with pmh sig for ch resp failure, COPD, obstructive sleep apnea, with ongoing tobacco use disorder, O2 Dependent, AFIB, ch diastolic CHF, hypertension , Insulin dependent diabetes, was brought in because he was found to be confused and short of breath by family. Required high flow in EMS. Head CT: No acute intracranial abnormality. Mild small vessel ischemic changes and mild diffuse brain parenchymal volume loss. CXR: No acute pulmonary findings 10/30: Patient stable for discharge today. Blood sugars improving 181 this morning although 300s last night. Patient for close follow up with Endocrinology services Dr. Darby on discharge. PROBLEM LIST: 1. Chronic Hypoxemic and Hypercarbic Respiratory Failure 2. COPD Exacerbation 3. Atrial Fibrillation on Eliquis 4. Diabetes Mellitus - Insulin Dependent 5. Rheumatoid Arthritis/Gout Chronic Hypoxemic/Hypercarbic Respiratory Failure/COPD * 10MG OF Prednisone for maintanence of RA as advised by Dr. Blake of Pulmonology. * Continue baseline home O2 3L NC with saturations >92% * Nocturnal NIV - outpatient sleep study * TRC/Nebs Atrial Fibrillation * Continue Eliquis, Digoxin, Cardizem, Lopressor CHF with Diastolic Dysfunction Last EF was 55% * Continue Lasix 60mg PO Daily * Monitor BEP Diabetes * Appreciate Endocrinology consultation for discharge planning * By the time he is discharged, he should use 35 units of Humalog mix at home, check BG ACHS, and use Novolog to correct hyperglycemia according to scale provided by Dr. Senior of endocrinology - will follow up with patient to make sure he has the correct regimen and experience/aid at home * Follow up with Dr. Darby outpatient on discharge * Finger sticks this morning 181, 300s overnight * CC1 diet Rheumatoid Arthritis/Gout * Received his weekly methotrexate dose this week * Allopurinol continued * Restarted Prednisone 10mg for RA * Continue Cymbalta 60mg PO Daily Code Status: DNR/DNI - Spoke with on phone and as per patient DVT PPx: Eliquis Diet: CC1 Problem List: 1. Diabetes 2. Rheumatoid arthritis 3. COPD exacerbation 4. History of chronic carbon dioxide retention Pain Ratin Pain Location: denies pain today Pain Goal: Remain pain free Pain Plan: as per pain pathway Tomorrow's Labs & Rationales: discharge today Maxwell TINEO,[facility] 10/30/17 1142: Attending MD Review Statement Attending Statement Attending MD Statement: examined this patient, discuss w/resident/PA/BOOKMAKER MAP, agreed w/resident/PA/BOOKMAKER MAP, discussed with family, reviewed EMR data (avail), discussed with nursing, discussed with case mgmt, amended to note Attending Assessment/Plan: Patient seen and examined. Resting comfortably not in any acute distress. No issues overnight reported by nursing staff. Stable, maintaining saturation on his home oxygen supplementation. No new complaints today. Adequate entry bilaterally with no added sounds. Blood glucose levels remain elevated with glucose levels in the 300s. Case was discussed with the endocrinology service who recommends discharging patient home on his home regimen of NovoLog Mix. Patient is on 35 units in the morning and 30 units at night. Patient is on sliding scale coverage at home. Patient is to follow-up with endocrinology service as an outpatient we did meet with his sister at the bedside at the time of discharge. We did reinforce the need for safety at home in order to prevent falls. Patient verbalized understanding. Medically stable to be discharged home today.
--- NOTE | 2017-10-30 09:15 | PN- Pulmonary ---
Subjective HPI/Critical Care Issues: pt seen and examined alert and oriented 10mg prednisone endocrinology following no n/v/d/c, no cp, no cedeno Objective Current Medications: Current Medications Sig/Lakisha Start time Last Medication Dose Route Stop Time Status Admin Acetaminophen 650 MG Q6P PRN 10/24 1645 AC PO Acetaminophen 1,000 MG Q6P PRN 10/24 1645 AC IV Albuterol Sulfate 3 ML EVERY 4 HRS/AWAKE 10/25 0800 AC 10/29 INH 205 Allopurinol 300 MG DAILY 10/25 09 AC 10/30 PO 0829 Apixaban 5 MG BID 10/24 2100 AC 10/30 PO 0829 Atorvastatin Calcium 10 MG 1700 10/25 1700 AC 10/29 PO 180 Digoxin 0.125 MG DAILY 10/25 09 AC 10/30 PO 08 Diltiazem HCl 120 MG DAILY 10/25 0900 AC 10/30 PO 0829 Docusate Sodium 100 MG QPM 10/24 2100 AC 10/29 PO 202 Duloxetine HCl 60 MG DAILY 10/25 09 AC 10/30 PO 0829 Folic Acid 1 MG BID 10/24 2100 AC 10/30 PO 0830 Furosemide 60 MG DAILY 10/25 0900 AC 10/30 PO 0830 Insulin Aspart 0 TIDAC/HS 10/27 2100 AC 10/30 SC 0826 Insulin Detemir 17 UNITS BID 10/28 0900 AC 10/30 SC 0826 Metoprolol Tartrate 100 MG BID 10/24 2100 AC 10/30 PO 0830 Nystatin 5 ML 4 TIMES/DAY 10/24 1700 AC 10/29 PO 202 Omeprazole 20 MG BID 10/24 2100 AC 10/30 PO 0831 Polyethylene Glycol 17 GM DAILY 10/29 1651 AC 10/30 PO 0832 Potassium Chloride 40 MEQ ONCE ONE 10/29 1345 DC 10/29 PO 10/29 1346 1537 Prednisone 10 MG DAILY 10/28 0900 AC 10/30 PO 0831 Senna/Docusate Sodium 2 TAB DAILY PRN 10/29 1700 AC 10/29 PO 1802 Tamsulosin HCl 0.4 MG QPM 10/24 2100 AC 10/29 PO 2022 Vital Signs & I&O Last 24 Hrs of Vitals and I&O: Vital Signs Date Time Temp Pulse Resp B/P B/P Pulse O2 O2 Flow FiO2 Mean Ox Delivery Rate 10/30 0836 Nasal 3.0L Cannula 10/30 0644 98.0 98 20 104/62 95 Nasal Cannula 10/30 0139 CPAP 3.0L 10/30 0000 Nasal 3.0L Cannula 10/29 2240 97.9 72 20 128/62 97 Nasal 2.0L Cannula 10/29 2208 97 CPAP 3.0L 10/29 2023 72 128/62 10/29 202 72 128/62 10/29 1625 96 Nasal 3.0L Cannula 10/29 1350 98.3 82 20 120/80 93 Nasal 3.0L Cannula Intake & Output 10/30 1600 10/30 0800 10/30 0000 Intake Total 120 180 Output Total Balance 120 180 Intake, Oral 120 180 Exam Other Physical Findings: gen-awake and alert heent-nasal cannula cvs-s1,s2, tachycardic lungs-rare rhonchi, diminished bases abd-soft,bs+ ext-trace edema Results Last 24 Hrs of Lab Results: Laboratory Tests 10/30/17 0655: Sodium Pending, Potassium Pending, Chloride Pending, Carbon Dioxide Pending, Anion Gap Pending, BUN Pending, Creatinine Pending, BUN/Creatinine Ratio Pending Impression/Plan Impression/Plan Impression/Plan: Impression 72 year old man * chronic hypoxemic and hypercarbic respiratory failure * COPD with perhaps a mild exacerbation * a.fib/flutter - on Eliquis * DM - Insulin dependent * RA - chronic pain Plan -10mg prednisone for baseline for RA -nocturnal NIV, will need sleep study re-evaluation on an outpatient basis -maintain spo2 >92% -TRC/Nebs -at baseline maintained on 10mg prednisone (arthritis) -currently on Eliquis -concern for amenstic events and probable dementia -discharge planning Code status - DNR/DNI DVT prophylaxis at all times (On Eliquis)
--- NOTE | 2017-10-30 10:16 | PN- Diabetes ---
Assessment/Plan Diabetes Assessment: This 72-year-old gentleman who presented with shortness of breath, was found to have mild exacerbation of COPD. His glucose level went up significantly with IV steroid. He was on 30 units of Humalog mix before breakfast and before dinner at home. He has a follow-up appointment with Dr. Darby. Plan: Please increase Novolog coverage as belows. Increase Levemir to 20 units bid. By the time he is discharged, he should use 35 units of Humalog mix at home, check BG ACHS, and use Novolog to correct hyperglycemia according this scale: 151-200 3 units 201-250 6 units 251-300 9 units 301-350 12 units 351-400 15 units >400 18 units Inpatient Diabetes Orders Before Each Meal: < 80 mg/dl: 0 80-100 mg/dl: 10 101-120 mg/dl: 10 121-150 mg/dl: 10 151-200 mg/dl: 13 201-250 mg/dl: 16 251-300 mg/dl: 19 301-350 mg/dl: 22 351-400 mg/dl: 25 > 400 mg/dl: 28 Bedtime: < 80 mg/dl: 0 80-100 mg/dl: 0 101-120 mg/dl: 0 121-150 mg/dl: 0 151-200 mg/dl: 3 201-250 mg/dl: 6 251-300 mg/dl: 9 301-350 mg/dl: 12 351-400 mg/dl: 15 > 400 mg/dl: 18 Subjective Subjective: His BG has been between 180-350 over the last 24 hours. He is able to eat. Objective Last 24 Hrs of Vital Signs/I&O Vital Signs Date Time Temp Pulse Resp B/P B/P Pulse O2 O2 Flow FiO2 Mean Ox Delivery Rate 10/30 0836 Nasal 3.0L Cannula 10/30 0644 98.0 98 20 104/62 95 Nasal Cannula 10/30 0139 CPAP 3.0L 10/30 0000 Nasal 3.0L Cannula 10/29 2240 97.9 72 20 128/62 97 Nasal 2.0L Cannula 10/298 97 CPAP 3.0L 10/29 2022 72 128/62 10/29 2021 72 128/62 10/29 1625 96 Nasal 3.0L Cannula 10/29 1350 98.3 82 20 120/80 93 Nasal 3.0L Cannula Intake & Output 10/30 1600 10/30 0800 10/30 0000 Intake Total 120 180 Output Total Balance 120 180 Intake, Oral 120 180
--- NOTE | 2017-10-30 14:33 | Discharge Summary ---
Visit Information Visit Dates Admission Date: 10/24/17 Discharge Date: 10/30/17 Hospital Course Course Attending Physician: Kathy Arreola MD Primary Care Physician: Tanmay Zee MD Hospital Course: HISTORY/COURSE: 72-year-old gentleman with past medical history of COPD on 2-3 L of home oxygen, hypertension, diabetes mellitus, rheumatoid arthritis on methotrexate, atrial flutter/fibrillation on Eliquis, obstructive sleep apnea on CPAP, diastolic heart failure (prior hx EF 55%). According to the patient's family member patient was acutely agitated and altered this morning. He was found to have an oxygen saturation in the 70s as per documentation. They tried to place him on CPAP but this did not work. EMS was called and they placed him on high flow oxygen to bring his oxygen saturation to 100. Patient gradually returned to his baseline. Patient is a poor historian. Speaking to the patient, he claims he "lost his marbles" and does not recall what had happened. He did not report significant shortness of breath at the time of assessment saturating well on 3L NC. He has a productive cough but is not able to produce the sputum and claims his throat has been bothering him. No fevers, hemoptysis or chest pain reported. Denies nausea vomiting or recent lower extremity edema. Patient was recently admitted last month for a COPD exacerbation and discharged to rehabilitation and recently returned home. He is noncompliant with CPAP. Patient quit smoking but has smoked pack half a day for 40 years prior to quitting. Previous admission 09/14-09/25: ICU to telemetry antibiotics were narrowed down to azithromycin after pneumonia was ruled out by CT chest Azithromycin was continued mainly for COPD. He was also started on IV Solu-Medrol later switched to prednisone and tapered gradually. He was continued on prednisone 10 mg daily which she has been taking for rheumatoid arthritis. Elevated heart rates at that time. Cardiology consult was obtained and he was initially started on Cardizem drip. Discharged home on metoprolol, Cardizem and digoxin with outpatient follow up with cardiology. Continued home dose of Eliquis. 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 GENERAL MEDICINE: Patient was adamant about not returning to rehab during his stay. had promoted concern to the staff and case management about her difficulty with taking care of the patient at home given his intermittent confusion and multiple need for readmission to the hospital. After multiple family discussions, patient , family and spouse agreed that he would return home rather than a rehabilitation facility. It was discussed thoroughly that the patient is at risk for fall at home and advised he get a life alert bracelet. PROBLEM LIST: 1. COPD Exacerbation/Chronic Hypoxemic and Hypercarbic Respiratory Failure 2. History of Atrial Flutter/Fibrillation 3. Diastolic CHF (lasix, statin, metoprolol) 4. History of HTN 5. DM 6. Gout/RA 7. BPH COPD Exacerbation/Chronic Hypoxemic and Hypercarbic Respiratory Failure Patient with COPD on baseline 2-3L with multiple admissions in the past and recent discharge 09/25/17 returned by EMS after being found to be altered with decreased saturations reported at home. Patient returned to normal O2 baseline on assesment alert and oriented. CXR clear. Mild leukocytosis likely due to chronic prednisone/methotrexate for rheumatoid arthritis. IV Solumedrol 40 q8 with IV Azithromycin started. Pulmonology Dr. Blake contacted. TRC/Nebs as [id number]. Patients pulmonology status improved quickly. Elevated blood sugars caused patient to get off IV steroids and switched to home dose of 10mg Prednisone for his Rheumatoid Arthritis. At that point endocrinology was consulted to further manage hyperglycemia during admission. Patient received CPAP at night during stay, remained on 3L NC and was out of bed to chair. Advised to follow up closely with pulmonology for further management of his lung conditions. H/O Atrial Flutter/Fibrillation Continued on metoprolol, cardizem, digoxin, eliquis. Advised to follow up outpatient with dry[facility] farmer and PCP. Diastolic CHF Previous EF 55%. Patients claims he no longer follows with Dr. López. Continue cardizem, metoprolol, digoxin, eliquis. Hypertension Continued metoprolol, cardizem, digoxin, eliquis. Diabetes Mellitus Glucose level went up significantly with IV steroid. Patient has type 2 diabetes on insulin. At home, he was on Humalog mix 75/25 30 units before breakfast and before dinner. His blood glucose were between 100-250 most of the time at home. He has a follow-up appointment with Dr. Darby. Started with 35 units of Levemir every morning. NovoLog coverage according to scale from endocrinology. Carbohydrate level 1 diet. By the time he is discharged, he should use 35 units of Humalog mix at home, check BG ACHS, and use Novolog to correct hyperglycemia according this scale: 151-200 3 units 201-250 6 units 251-300 9 units 301-350 12 units 351-400 15 units >400 18 units Gout/RA Continued Allopurinol, methotrexate and steroids BPH Continued Tamsulosin. Code Status: DNR DNI - as per patient and [place] DVT PPx: Eliquis Diet: CC1 Allergies: Coded Allergies: Sulfa (Sulfonamide Antibiotics) (Intermediate, RASH/HIVES 06/06/17) Disposition Summary Disposition Principal Diagnosis: Chronic Hypoxemic and Hypercarbic Respiratory Failure Additional Diagnosis: COPD Exacerbation Discharge Disposition: home or self care Discharge Instructions General Discharge Information Code Status: Do Not Resucitate Patient's Diet: Consistent Carbohydrate 1 Patient's Activity: As tolerated with assist Follow-Up Instructions/Appts: Please follow up with PCP within 1-2 weeks of discharge. Medications at Discharge Discharge Medications: Stop taking the following medications: Oxycodone HCl/Acetaminophen (Oxycodone-Acetaminophen 10-325) 10 MG-325 MG TABLET ORAL 4 times daily as needed as needed for PAIN Qty = 120 Continue taking these medications: Duloxetine HCl (Cymbalta) 60 MG CAPSULE. 1 Capsule ORAL DAILY Comments: Last Taken: 10/30/17 Time: 830AM Allopurinol (Allopurinol) 300 MG TABLET 1 Tablet ORAL DAILY Comments: Last Taken: 10/30/17 Time: 830AM Folic Acid (Folic Acid) 1 MG TABLET 1 Tablet ORAL TWICE DAILY Comments: Last Taken: 10/30/17 Time: 830AM Omeprazole (Omeprazole) 20 MG CAPSULE. 1 Capsule ORAL TWICE DAILY Comments: Last Taken: 10/30/17 Time: 830AM Lovastatin (Lovastatin) 40 MG TABLET 1 Tablet ORAL Every night Instructions: with food Comments: NOT GIVEN IN HOSPITAL. PT RECEIVED LIPITOR 10/29/17 600PM Budesonide/Formoterol Fumarate (Symbicort 160-4.5 Mcg Inhaler) 160 MCG-4.5 MCG/ ACTUATION HFA.AER.AD 2 Puff Inhale through mouth TWICE DAILY Comments: NOT GIVEN IN HOSPITAL Albuterol Sulfate (Albuterol Sulfate) 2.5 MG/3 ML (0.083 %) VIAL.NEB 1 Vial Inhale Solution 5 TIMES A DAY Comments: Last Taken: 10/29/17 Time: 900PM Methotrexate (Methotrexate) 2.5 MG TABLET 6 Tablet ORAL EVERY SATURDAY Comments: NOT GIVEN IN THE HOSPTIAL Alendronate Sodium (Alendronate Sodium) 70 MG TABLET 1 Tablet ORAL EVERY SATURDAY Qty = 12 Instructions: in the morning, at least 30 minutes before the first food, beverage, or medication of the day Comments: NOT GIVEN IN THE HOSPTIAL Tamsulosin HCl (Tamsulosin HCl) 0.4 MG CAP.ER.24H 1 Capsule ORAL Every night Comments: Last Taken: 10/29/17 Time: 830PM Apixaban (Eliquis) 5 MG TABLET 1 Tablet ORAL TWICE DAILY Qty = 60 Comments: Last Taken: 10/30/17 Time: 830AM Metoprolol Tartrate (Lopressor) 100 MG TABLET 1 Tablet ORAL TWICE DAILY Qty = 60 Comments: Last Taken: 10/30/17 Time: 830AM Docusate Sodium (Stool Softener) 100 MG CAPSULE 1 Capsule ORAL Every night Comments: Last Taken: 10/29/17 Time: 830PM Prednisone (Prednisone) 10 MG TABLET 10 Milligram ORAL DAILY Qty = 30 Comments: Last Taken: 10/29/17 Time: 830AM Diltiazem HCl (Cardizem Cd) 120 MG CAP.ER.24H 120 Milligram ORAL DAILY Qty = 30 Comments: Last Taken: 10/30/17 Time: 830AM Digoxin (Digoxin) 125 MCG TABLET 1 Tablet ORAL DAILY Qty = 30 Comments: Last Taken: 10/29/17 Time: 830AM Furosemide (Furosemide) 20 MG TABLET 3 Tablet ORAL DAILY Comments: Last Taken: 10/30/17 Time: 830AM Insulin NPL/Insulin Lispro (Humalog Mix 75-25 Kwikpen) 100 UNIT/ML (75-25) INSULN.PEN 35 Units SC DAILY Comments: NOT GIVEN Insulin NPL/Insulin Lispro (Humalog Mix 75-25 Kwikpen) 100 UNIT/ML (75-25) INSULN.PEN 30 Units SC Every night Comments: NOT GIVEN Copies To: Saadia TINEO,Tanmay Quintanilla; Wilner TINEO,Sindy; Lou TINEO,Sebastian; Parrish TINEO,[facility]
== END 2017-10-30 09:35 | disposition home health service (06) | DRG 191 ==
LOC: ERH 13:54 → ERHI 16:30 → 2NA 16:30 → ENRESERV 16:58 → ENTRNSPT 17:42 → EDTRNSPTSTS 17:49 → 2NA 18:13 → CMPTRNSPT 18:17 → 2NA 10-25 08:36 → ENPENDDIS 10-30 09:13 → ENTRNSPT 10-30 09:22 → 2NA 10-30 09:35 → EDTRNSPTSTS 10-30 09:37 → EDTRNSPT 10-30 09:37 → CMPTRNSPT 10-30 09:52
PROVIDERS: Physical Medicine & Rehabilitation Pain Medicine; Physician Assistant Medical; Student in an Organized Health Care Education/Training Program
PROC: 5A09457 Assistance with Respiratory Ventilation, 24-96 Consecutive Hours, Continuous Positive Airway Pressure (ICD-10-PCS; principal; 2017-10-24)
DX: J44.1 Chronic obstructive pulmonary disease with (acute) exacerbation (principal); J96.11 Chronic respiratory failure with hypoxia; I50.32 Chronic diastolic (congestive) heart failure; J96.12 Chronic respiratory failure with hypercapnia; E78.5 Hyperlipidemia, unspecified; M06.9 Rheumatoid arthritis, unspecified; I48.91 Unspecified atrial fibrillation; Z79.01 Long term (current) use of anticoagulants; G47.33 Obstructive sleep apnea (adult) (pediatric); Z91.19 Patient's noncompliance with other medical treatment and regimen; N40.0 Benign prostatic hyperplasia without lower urinary tract symptoms; Z79.4 Long term (current) use of insulin; Z79.84 Long term (current) use of oral hypoglycemic drugs; E66.9 Obesity, unspecified; Z68.36 Body mass index [BMI] 36.0-36.9, adult; I11.0 Hypertensive heart disease with heart failure; Z99.81 Dependence on supplemental oxygen; Z72.0 Tobacco use; E11.65 Type 2 diabetes mellitus with hyperglycemia; T38.0X5A Adverse effect of glucocorticoids and synthetic analogues, initial encounter; Z79.899 Other long term (current) drug therapy; Z88.2 Allergy status to sulfonamides; Z79.891 Long term (current) use of opiate analgesic; Z79.51 Long term (current) use of inhaled steroids; Z79.52 Long term (current) use of systemic steroids; M10.9 Gout, unspecified; Z66 Do not resuscitate
CPT/HCPCS: 2NAP; 36592; 71045; 81001; 82436; 87070; 87449; 87450; 93005; 93010; 96374; 97116-GO; 97161-GP; J0456; J1815; J2920; J2930; J3490; J7040; J7512; Q2036